=== PATIENT | male | born 1950 | race Caucasian/White ===

== ENCOUNTER 2016-05-22 21:01 | Inpatient (IN) | payer OTHER, MEDICARE ==
[~2016-05-22] VITALS: Ht 177.8 cm; Wt 108.5 kg
[2016-05-22] VITALS (9 sets, daily range): BP systolic 137–241; BP diastolic 63–119; PULSE 70–85; RESP 11–20; TEMP 97.3; O2SAT 95–97
[~2016-05-22 21:01] MED LIST: ALPR0.5T3 PO; ALPR0.5T99 PO; AMLO5TAB96 PO; ASPI325T PO; CEPH500C3 PO; DIOV80TA4 PO; EZET10 PO; FIBEPOW OR; FLUTI220I INH; JANU50TA5 PO; LEVA0.3113 NEB; METO100T OR; METR250 PO; NEXI40CA PO; PRED20 PO; RANI150 PO; ROSU5 PO; SING4GRA PO; STOO100T PO; TAB-TAB PO
[2016-05-22] MEDS ORDERED: SODIUM CHLOR 0.9% 1000 ML INJ 1,000 ML IV SCH (21:28)
[2016-05-22] MEDS ORDERED: SODIUM CHLORIDE 0.9% FLUSH 5 ML FLUSH IVF PRN ×4 (21:30→22:30)
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
[2016-05-22] MEDS ORDERED: ASPI1TAB69 PO (21:39)
[2016-05-22] MEDS ORDERED: NITR1SUB3 SL (21:39)
[2016-05-22] MEDS ORDERED: CYAN1TAB21 SL (21:39)
[2016-05-22] MEDS ORDERED: GABA800T PO (21:39)
[2016-05-22] MEDS ORDERED: ATOR40TA16 PO (21:39)
[2016-05-22] MEDS ORDERED: FERR325T PO (21:39)
[2016-05-22] MEDS ORDERED: K-TA10TA PO (21:39)
[2016-05-22] MEDS ORDERED: MONT10TA2 PO (21:39)
[2016-05-22] MEDS ORDERED: MOTR200T4 PO (21:39)
[2016-05-22] MEDS ORDERED: ALPR0.25 PO (21:39)
[2016-05-22] MEDS ORDERED: COQ-30CA2 PO (21:39)
[2016-05-22] MEDS ORDERED: OMEP40CA2 PO (21:39)
[2016-05-22] MEDS ORDERED: CENTTAB PO (21:39)
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
[2016-05-22] MEDS ORDERED: niCARdipine INJ 25 MG in SODIUM CHLOR 0.9% 250 ML INJ 250 ML IV SCH (22:00)
[2016-05-22] MEDS ORDERED: LABETALOL HCL 100 MG/20 ML VIAL IV PUSH ONE (22:15)
--- NOTE | 2016-05-22 22:22 | RADRPT ---
EXAM DATE/TIME: 05/22/2016 21:28 [facility] COMPARISON: CHEST SINGLE AP, November 13, 2010, 20:30. INDICATIONS : Sycopal episode. MEDICAL HISTORY : None. SURGICAL HISTORY : CABG. ENCOUNTER: Initial ACUITY: 1 day PAIN SCORE: 0/10 LOCATION: chest FINDINGS: A single view of the chest demonstrates the lungs to be symmetrically aerated without evidence of mas s, infiltrate or effusion. Postsurgical changes are seen in the mediastinum and left base. The cardio mediastinal contours are otherwise unremarkable. Osseous structures are intact. CONCLUSION: No acute disease. Status post median sternotomy. Mika Galindo MD on May 22, 2016 at 22:20 Board Certified Radiologist. This report was verified electronically.
[2016-05-22 22:24] LABS: AUTOMATED NEUTROPHIL # 7.9 TH/MM3 (1.8-7.7); BASOPHIL % 0.4 % (0.0-2.0); EOSINOPHIL # 0.1 TH/MM3 (0-0.4); EOSINOPHIL % 0.7 % (0.0-4.0); HEMATOCRIT 44.2 % (39.0-51.0); HEMO FLAGS DIFF FINAL; LYMPH % 11.8 % (9.0-44.0); LYMPHOCYTE # 1.2 TH/MM3 (1.0-4.8); MEAN CELL VOLUME 76.7 FL (80.0-100.0); MEAN CORPUSCULAR HEMOGLOBIN 26.4 PG (27.0-34.0); MEAN CORPUSCULAR HGB CONC 34.4 % (32.0-36.0); MONO % 9.4 % (0.0-8.0); NEUT % 77.7 % (16.0-70.0); PLATELET COUNT 175 TH/MM3 (150-450); RED BLOOD COUNT 5.76 MIL/MM3 (4.50-5.90); WHITE BLOOD COUNT 10.2 TH/MM3 (4.0-11.0)
[2016-05-22] MEDS ORDERED: TETANUS/DIPHTHERIA TOXOID ADULT 0.5 ML VIAL IM ONE (22:30)
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
[2016-05-22 22:38] LABS: APTT (PATIENT) 26.6 SEC (24.3-30.1); PROTHROMBIN TIME - PATIENT 11.4 SEC (9.8-11.6)
[2016-05-22 22:54] LABS: ANION GAP 8 MEQ/L (5-15); AST (GOT) 41 U/L (15-37); BICARBONATE 29.3 MEQ/L (21.0-32.0); BLOOD UREA NITROGEN 9 MG/DL (7-18); CHLORIDE 101 MEQ/L (98-107); GLOMERULAR FILTRATION RATE 57 ML/MIN (>89); MAGNESIUM 2.2 MG/DL (1.5-2.5); POTASSIUM 3.7 MEQ/L (3.5-5.1); SODIUM (NA) 138 MEQ/L (136-145)
[2016-05-22 23:09] LABS: ALKALINE PHOSPHATASE 76 U/L (45-117); ALT (GPT) 41 U/L (12-78); CREATINE KINASE 1196 U/L (39-308)
[2016-05-22 23:24] LABS: CKMB 4.9 NG/ML (0.5-3.6)
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
[2016-05-22] MEDS ORDERED: IOHEXOL 350 MG/ML 10 ML VIAL (for RAD DIAG) IV ONE (23:40)
[2016-05-23] VITALS (19 sets, daily range): BP systolic 112–173; BP diastolic 54–95; PULSE 20–96; RESP 14–24; TEMP 98.3–99; O2SAT 95–98
--- NOTE | 2016-05-23 00:17 | RADRPT ---
EXAM DATE/TIME: 05/22/2016 23:24 [facility] COMPARISON: No previous studies available for comparison. INDICATIONS : Occipital hemorrhage; evaluate of arteriovenous malformation IV CONTRAST: 70 cc Omnipaque 350 (iohexol) IV RADIATION DOSE: 17.30 CTDIvol (mGy) MEDICAL HISTORY : Cerebrovascular disease. Cardiovascular disease Chronic obstructive pulmonary disease.Hypertension. SURGICAL HISTORY : CABG ENCOUNTER: Initial ACUITY: 1 day PAIN SCALE: 9/10 LOCATION: Bilateral cranial TECHNIQUE: Volumetric scanning was performed using a multi-row detector CT scanner. The data was post processed with a variety of visualization algorithms including full volume maximum intensity projection, multi -planar sliding thin slab reformation, curved planar reformation, and surface rendering techniques. Using automated exposure control and adjustment of the mA and/or kV according to patient size, radiat ion dose was kept as low as reasonably achievable to obtain optimal diagnostic quality images. FINDINGS: There is excellent visualization of the major intracranial arteries out to the second-order branch ve ssels. There is no evidence for aneurysm, vessel truncation or stenosis, and no evidence for vascula r malformation. There is mild stenosis of the proximal internal carotid arteries bilaterally seen on the source images. CONCLUSION: 1. Unremarkable CTA brain. No evidence for arteriovenous malformation. Again seen is right occipital lobe hemorrhage and small left frontal lobe hemorrhage. See recent head CT report. Jose Porter MD on May 23, 2016 at 0:08 Board Certified Radiologist. This report was verified electronically.
[2016-05-23] MEDS ORDERED: POTASSIUM CHLOR 20 MEQ PREMIX 100 ML IV PRN ×2 (00:30)
[2016-05-23] MEDS ORDERED: POTASSIUM CL 40 MEQ/30 ML LIQ UDC PO/TUBE PRN ×2 (00:30)
[2016-05-23] MEDS ORDERED: MAGNESIUM SULFATE INJ 4 GM in SODIUM CHLORIDE 0.9% INJ 92 ML IV PRN (00:30)
[2016-05-23] MEDS ORDERED: POTASSIUM CHLOR 40 MEQ PREMIX 100 ML IV PRN ×2 (00:30)
[2016-05-23] MEDS ORDERED: MAGNESIUM SULFATE INJ 2 GM in SODIUM CHLORIDE 0.9% INJ 96 ML IV PRN (00:30)
[2016-05-23] MEDS ORDERED: MAGNESIUM OXIDE 400 MG TAB PO PRN (00:30)
[2016-05-23] MEDS ORDERED: POTASSIUM PHOSPHATE MONOBASIC 500 MG TAB PO PRN (00:30)
[2016-05-23] MEDS ORDERED: SODIUM PHOSPHATE INJ 30 MMOL in SODIUM CHLOR 0.9% 250 ML INJ 240 ML IV PRN (00:30)
[2016-05-23] MEDS ORDERED: POTASSIUM PHOSPHATE MONOBASIC 500 MG TAB PO/TUBE PRN (00:30)
[2016-05-23] MEDS ORDERED: POTASSIUM PHOSPHATE INJ 30 MMOL in SODIUM CHLOR 0.9% 250 ML INJ 250 ML IV PRN (00:30)
[2016-05-23] MEDS ORDERED: RESP: ALBUTEROL 2.5 MG/3 ML NEB (PRN) INH (00:45)
[2016-05-23] MEDS ORDERED: CHLORHEXIDINE GLUCONATE 2 % 1 PACK (2 CLOTHS) TOP PRN (00:45)
[2016-05-23] MEDS ORDERED: BISACODYL EC 5 MG TABEC PO PRN (00:45)
[2016-05-23] MEDS ORDERED: MISCELLANEOUS NURSING INFORMATION XX SCH (00:45)
[2016-05-23] MEDS ORDERED: SODIUM CHLORIDE 0.9% FLUSH 5 ML FLUSH IV FLUSH PRN (00:45)
[2016-05-23] MEDS ORDERED: ACETAMINOPHEN 1000 MG/100 ML VIAL IV PRN (01:15)
--- NOTE | 2016-05-23 01:15 | RADRPT ---
EXAM DATE/TIME: 05/23/2016 00:22 [facility] COMPARISON: No previous studies available for comparison. INDICATIONS : Right wrist pain. MEDICAL HISTORY : Cerebrovascular disease. Cardiovascular disease. Chronic obstructive pulmonary disease. Hypertens ion SURGICAL HISTORY : CABG. ENCOUNTER: Initial ACUITY: 1 day PAIN SCORE: 10/10 LOCATION: Right wrist FINDINGS: Three view examination of the right wrist demonstrates no soft tissue swelling, dislocation, or fract ure. The carpal bones are in normal alignment. The joint spaces are maintained. Bony mineralizatio n is normal. CONCLUSION: 1. No acute findings. Jose Porter MD on May 23, 2016 at 1:12 Board Certified Radiologist. This report was verified electronically.
[2016-05-23] MEDS: niCARdipine INJ 25 MG in SODIUM CHLOR 0.9% 250 ML INJ 250 ML IV SCH ×4 (01:22→21:30)
[2016-05-23] MEDS ORDERED: DEXTROSE 50% IN WATER 50 ML VIAL(D50) IV PUSH PRN (01:30)
[2016-05-23] MEDS ORDERED: GLUCAGON 1 MG/ML VIAL OTHER PRN (01:30)
--- NOTE | 2016-05-23 01:52 | RADRPT ---
EXAM DATE/TIME: 05/23/2016 01:12 [facility] COMPARISON: No previous studies available for comparison. INDICATIONS : Left hand pain. MEDICAL HISTORY : None. SURGICAL HISTORY : None. ENCOUNTER: Initial ACUITY: 1 day PAIN SCORE: 10/10 LOCATION: Left hand FINDINGS: Three view examination of the left hand demonstrates no soft tissue swelling, dislocation, or fractur e. The carpal bones appear intact. The interphalangeal and metacarpophalangeal joints are intact. Bony mineralization is normal. CONCLUSION: 1. No acute findings. Mild osteoarthritis. Surgical clips present around the distal left radius. Jose Porter MD on May 23, 2016 at 1:48 Board Certified Radiologist. This report was verified electronically.
[2016-05-23] MEDS: RESP: ALBUTEROL 2.5 MG/IPRATROPIUM 0.5 MG NEB (SCH) INH ×4 (03:34→19:34)
[2016-05-23] MEDS: CHLORHEXIDINE GLUCONATE 2 % 1 PACK (2 CLOTHS) TOP SCH (04:00)
[2016-05-23] MEDS: ONDANSETRON HCL 4 MG/2 ML VIAL IV PRN ×3 (04:02→20:47)
[2016-05-23] MEDS ORDERED: SODIUM CHLOR 0.9% 250 ML INJ 250 ML ONE (06:03)
[2016-05-23] MEDS: INSULIN ASPART SUPPLEMENTAL SCALE SQ SCH ×4 (07:00→21:00)
[2016-05-23] MEDS ORDERED: SODIUM CHLORIDE 0.9% FLUSH 5 ML FLUSH IVF SCH ×3 (09:00)
[2016-05-23] MEDS: SODIUM CHLORIDE 0.9% FLUSH 5 ML FLUSH IV FLUSH SCH ×2 (09:30→21:00)
[2016-05-23] MEDS: PANTOPRAZOLE SODIUM 40 MG VIAL IV SCH (09:31)
[2016-05-23] MEDS ORDERED: MORPHINE SULFATE 4 MG/ML INJ IV PUSH PRN ×2 (10:15→11:00)
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
[2016-05-23] MEDS ORDERED: GADODIAMIDE PF 287 MG/ML 5 ML VIAL (for RAD MRI) IV ONE (16:04)
--- NOTE | 2016-05-23 16:52 | RADRPT ---
EXAM DATE/TIME: 05/23/2016 15:47 [facility] COMPARISON: CT BRAIN W/O CONTRAST, May 22, 2016, 21:44. INDICATIONS : Hematoma. Altered mental status. CONTRAST: 22 cc Omniscan (gadodiamide) IV MEDICAL HISTORY : Hypertension. Myocardial infarction. Chronic obstructive pulmonary disease. Diabetes. SURGICAL HISTORY : Gastric bypass. CABG Cardiac cath with stent placement. Knee. Left shoulder. ENCOUNTER: Subsequent ACUITY: 2 day PAIN SCORE: 3/10 LOCATION: cranial TECHNIQUE: Multiplanar, multisequence MRI of the brain was performed both prior to and following the administrat ion of paramagnetic contrast. FINDINGS: The craniocervical junction and midline structures are unremarkable. There is acute 5.6 x 2.5 cm cheryl preeti in the right occipital lobe which is sparing the cortex. There is mass effect on the atrium righ t lateral ventricle but no signs of herniation. Following initiation of contrast no normal heads is i dentified. Susceptibility weighted imaging demonstrate multiple small areas of signal restriction mos t characteristic of amyloid angiopathy. Small amount of blood is seen layering in the body of the lef t lateral ventricle. Posterior fossa structures are unremarkable. CONCLUSION: 1. Right occipital lobe hematoma described above without evidence of underlying mass. The findings on a background of chronic hemorrhage and likely related to amyloid angiopathy. Manny Kim MD on May 23, 2016 at 16:47 Board Certified Radiologist. This report was verified electronically.
--- NOTE | 2016-05-23 19:02 | EC ---
Study Study Date:05/23/2016 STUDY CONCLUSIONS SUMMARY - Left ventricle: The cavity size was normal. Wall thickness was normal. Systolic function was normal. The estimated ejection fraction was in the range of 50% to 55%. Wall motion was normal; there were no regional wall motion abnormalities. - Aortic valve: Valve area: 0.71cm^2(VTI). Valve area: 0.77cm^2 (Vmax). - Mitral valve: Valve area by pressure half-time: 2.47cm^2. If LV function is below 40, please consider prescribing an ACEI or ARB or document rationale for non-use. PROCEDURE DATA STUDY STATUS: Elective. Procedure: Transthoracic echocardiography. Image quality was poor. Scanning was performed from the parasternal, apical, and subcostal acoustic windows. Study completion: The patient tolerated the procedure well. Transthoracic echocardiography. M-mode, complete 2D, complete spectral Doppler, and color Doppler. Patient status: Inpatient. CARDIAC ANATOMY LEFT VENTRICLE: The cavity size was normal. Wall thickness was normal. Systolic function was normal. The estimated ejection fraction was in the range of 50% to 55%. Wall motion was normal; there were no regional wall motion abnormalities. AORTIC VALVE: Trileaflet; normal thickness leaflets. Doppler: Transvalvular velocity was within the normal range. There was no stenosis. No regurgitation. Valve area: 0.71cm^2(VTI). Valve area: 0.77cm^2 (Vmax). Mean gradient: 8mm Hg (S). Peak gradient: 15mm Hg (S). AORTA: Aortic root: The aortic root was normal in size. MITRAL VALVE: Structurally normal valve. Doppler: Transvalvular velocity was within the normal range. There was no evidence for stenosis. No regurgitation. Valve area by pressure half-time: 2.47cm^2. LEFT ATRIUM: The atrium was normal in size. RIGHT VENTRICLE: The cavity size was normal. Wall thickness was normal. PULMONIC VALVE: Doppler: Transvalvular velocity was within the normal range. There was no evidence for stenosis. No regurgitation. TRICUSPID VALVE: Structurally normal valve. Doppler: Transvalvular velocity was within the normal range. No regurgitation. PULMONARY ARTERY: The main pulmonary artery was normal-sized. Systolic pressure was within the normal range. RIGHT ATRIUM: The atrium was normal in size. PERICARDIUM: There was no pericardial effusion. SYSTEMIC VEINS: Inferior vena cava: The vessel was normal in size. BASIC MEASUREMENTS ADULT Normal Left ventricle LV internal dimension, ED, chordal level, 45.8 mm 43-52 PLAX LV internal dimension, ES, chordal level, 35.8 mm 23-38 PLAX Fractional shortening, chordal level, PLAX *22 % >29 LV posterior wall thickness, ED 11.6 mm IVS/LVPW ratio, ED *1.35 <1.3 Ventricular septum Septal thickness, ED 15.7 mm Aortic valve Leaflet separation 16 mm 15-26 Right ventricle RV internal dimension, ED, PLAX 24.9 mm 19-38 BASIC MEASUREMENTS ADULT Normal Aortic valve Leaflet separation 16 mm 15-26 Aorta Root diameter, ED *38 mm 20-37 Left atrium Anterior-posterior dimension, ES 36 mm 19-40 LA/aortic root ratio 0.95 DOPPLER MEASUREMENTS ADULT Normal Main pulmonary artery Pressure, S 28 mm Hg =30 Aortic valve Peak velocity, S 193 cm/s Mean velocity, S 132 cm/s VTI, S 43.2 cm Mean gradient, S 8 mm Hg Peak gradient, S 15 mm Hg Valve area, VTI 0.71 cm^2 Valve area, Vmax 0.77 cm^2 Mitral valve Pressure half-time 89 ms Valve area, pressure half-time 2.47 cm^2 Tricuspid valve Regurgitant peak velocity 212 cm/s Peak RV-RA gradient, S 18 mm Hg Maximal regurgitant velocity 212 cm/s Systemic veins Estimated CVP 10 mm Hg Right ventricle RV pressure, S 28 mm Hg <30 LEGEND: Mean values are shown as u=mean value. Asterisk (*) high values outside specified normal range. Prepared and signed by Patricio Colindres [id number]
[2016-05-23] MEDS: MANNITOL 12.5 GM/50 ML VIAL IV SCH (20:00)
--- NOTE | 2016-05-23 23:48 | EKG ---
Date Performed: 05/22/2016 Time Performed: 22:12:10 PTAGE: 66 years EKG: Sinus rhythm NORMAL ECG PREVIOUS TRACING : 11/16/2010 14.02 Compared to prior tracing no significant change DOCTOR: Hank Trejo Interpretating Date/Time 05/23/2016 23:46:43
[2016-05-24] VITALS (12 sets, daily range): BP systolic 132–152; BP diastolic 58–83; PULSE 60–92; RESP 12–20; TEMP 98.4–99.2; O2SAT 94–98
[2016-05-24] MEDS: MANNITOL 12.5 GM/50 ML VIAL IV SCH ×3 (02:00→17:10)
[2016-05-24] MEDS: CHLORHEXIDINE GLUCONATE 2 % 1 PACK (2 CLOTHS) TOP SCH (04:00)
[2016-05-24] MEDS: niCARdipine INJ 25 MG in SODIUM CHLOR 0.9% 250 ML INJ 250 ML IV SCH ×2 (05:10→20:39)
[2016-05-24] MEDS: RESP: ALBUTEROL 2.5 MG/IPRATROPIUM 0.5 MG NEB (SCH) INH ×4 (05:11→19:59)
[2016-05-24] MEDS ORDERED: VANCOMYCIN INJ 1,000 MG in SODIUM CHLOR 0.9% 250 ML INJ 250 ML IV SCH (06:00)
[2016-05-24 06:02] LABS: AUTOMATED NEUTROPHIL # 9.6 TH/MM3 (1.8-7.7); BASOPHIL % 0.3 % (0.0-2.0); EOSINOPHIL % 0.4 % (0.0-4.0); HEMO FLAGS DIFF FINAL; LYMPH % 15.2 % (9.0-44.0); LYMPHOCYTE # 1.9 TH/MM3 (1.0-4.8); MEAN CELL VOLUME 77.1 FL (80.0-100.0); MEAN CORPUSCULAR HEMOGLOBIN 26.3 PG (27.0-34.0); MEAN CORPUSCULAR HGB CONC 34.1 % (32.0-36.0); MONO % 7.2 % (0.0-8.0); NEUT % 76.9 % (16.0-70.0); PLATELET COUNT 170 TH/MM3 (150-450); RED BLOOD COUNT 5.84 MIL/MM3 (4.50-5.90); RED CELL DISTRIBUTION WIDTH 15.3 % (11.6-17.2); WHITE BLOOD COUNT 12.4 TH/MM3 (4.0-11.0)
[2016-05-24 06:31] LABS: ALKALINE PHOSPHATASE 76 U/L (45-117)
[2016-05-24 06:38] LABS: ALT (GPT) 37 U/L (12-78); ANION GAP 9 MEQ/L (5-15); AST (GOT) 49 U/L (15-37); BICARBONATE 25.6 MEQ/L (21.0-32.0); BLOOD UREA NITROGEN 9 MG/DL (7-18); CHLORIDE 99 MEQ/L (98-107); GLOMERULAR FILTRATION RATE 72 ML/MIN (>89); MAGNESIUM 2.2 MG/DL (1.5-2.5); SODIUM (NA) 134 MEQ/L (136-145)
[2016-05-24 06:57] LABS: POTASSIUM 4.1 MEQ/L (3.5-5.1)
[2016-05-24] MEDS: INSULIN ASPART SUPPLEMENTAL SCALE SQ SCH ×4 (07:00→21:00)
[2016-05-24] MEDS: PANTOPRAZOLE SODIUM 40 MG VIAL IV SCH (08:01)
[2016-05-24] MEDS: SODIUM CHLORIDE 0.9% FLUSH 5 ML FLUSH IV FLUSH SCH (08:01)
[2016-05-24] MEDS ORDERED: THROMBIN (TOPICAL) 5,000 UNIT VIAL ONE (08:06)
[2016-05-24] MEDS ORDERED: LIDOCAINE 1%/EPINEPHrine 1:100,000 SOLN 30 ML VIAL ONE (08:06)
[2016-05-24] MEDS ORDERED: ceFAZolin 2 GM PREMIX 50 ML ONE (08:06)
[2016-05-24] MEDS ORDERED: GELFOAM SIZE 100 ONE (08:07)
[2016-05-24] MEDS ORDERED: DEXAMETHASONE SOD PHOS 20 MG/5 ML VIAL ONE (08:07)
[2016-05-24] MEDS ORDERED: GENTAMICIN SULFATE 80 MG/2 ML VIAL ONE (08:07)
[2016-05-24] MEDS ORDERED: levETIRAcetam 500 MG/5 ML VIAL IV ONE ×2 (08:08→12:00)
[2016-05-24] MEDS ORDERED: VANCOMYCIN HCL 1000 MG VIAL ONE (08:09)
[2016-05-24] MEDS ORDERED: SODIUM CHLOR 0.9% 250 ML INJ 250 ML ONE (08:10)
--- NOTE | 2016-05-24 08:29 | RADRPT ---
EXAM DATE/TIME: 05/24/2016 06:16 [facility] COMPARISON: CT BRAIN W/O CONTRAST, May 22, 2016, 21:44. INDICATIONS: Evaluate hemorrhage. RADIATION DOSE: 48.42 CTDIvol (mGy) MEDICAL HISTORY: Carotid stenosis. Cardiovascular disease Hypertension. SURGICAL HISTORY: None. ENCOUNTER: Sequela ACUITY: 3 days PAIN SCALE: Non-responsive LOCATION: Cranial TECHNIQUE: Multiple contiguous axial images were obtained of the head. Using automated exposure control and adj ustment of the mA and/or kV according to patient size, radiation dose was kept as low as reasonably a chievable to obtain optimal diagnostic quality images. FINDINGS: The large intraaxial bleed within the right occipital lobe is again noted and stable and appearance. It measures 5.7 x 2.5 cm. There is acute intraventricular hemorrhage filling the atrium of the righ t lateral ventricle and to a much lesser degree within the atrium of the lateral ventricle. The smal l focal subcortical hemorrhage within the left parietal lobe is stable also. This measures 0.9 cm in greatest dimension. There is a subtle area of hyperdenisty within the left posterior parietal regio n as well as within the right mid parietal and right temporal regions consistent with probable acute cortical contusions in these locations which were not as well visualized on the previous examination. Moderate to severe periventricular and subcortical white matter small vessel ischemic changes are n oted bilaterally. There are scattered old lacunar infarcts within the left basal ganglia. No midlin e shift is noted. Acute subarachnoid hemorrhage is also likely within the region of the cerebellum b ilaterally. CONCLUSION: 1. Stable large acute parenchymal hemorrhage within the right occipital lobe measuring 5.7 x 2.5 cm with extensive of acute hemorrhage into the atria of the lateral ventricle (right more extensive than left). There is also a stable acute subcortical parenchymal hemorrhage within the left parietal lob e measuring 0.9 cm and new subtle areas of cortical hemorrhage within the left posterior parietal, ri ght mid parietal and right temporal regions. Acute subarachnoid hemorrhage is also likely within the region of the cerebellum bilaterally. 2. No midline shift. 3. Severe periventricular and subcortical white matter small vessel ischemic changes bilaterally. 4. Old lacunar infarcts within the left basal ganglia. Anthony Pearl MD on May 24, 2016 at 7:16 Board Certified Radiologist. This report was verified electronically.
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
[2016-05-24] MEDS ORDERED: PROPOFOL 200 MG/20 ML AMP IV ONE (12:00)
[2016-05-24] MEDS ORDERED: LACTATED RINGER'S 1000 ML INJ 2,000 ML IV ONE (12:00)
[2016-05-24] MEDS ORDERED: PHENYLEPH/NS 1000 MCG/10 ML SYR IV ONE (12:00)
[2016-05-24] MEDS ORDERED: ONDANSETRON HCL 4 MG/2 ML VIAL IV PUSH ONE (12:00)
[2016-05-24] MEDS: NS + KCL 20 MEQ INJ 1,000 ML IV SCH ×2 (12:42→22:42)
[2016-05-24] MEDS ORDERED: POTASSIUM CHLOR 20 MEQ PREMIX 100 ML IV PRN (12:45)
[2016-05-24] MEDS ORDERED: ONDANSETRON HCL 4 MG/2 ML VIAL IV PRN (12:45)
[2016-05-24] MEDS ORDERED: ceFAZolin 2 GM PREMIX 50 ML IV SCH (12:45)
[2016-05-24] MEDS ORDERED: CALCIUM GLUCONATE 10% 1 GM/10 ML VIAL IV PRN (12:45)
[2016-05-24] MEDS ORDERED: SODIUM CHLORIDE 0.9% FLUSH 5 ML FLUSH IVF PRN (12:45)
[2016-05-24] MEDS ORDERED: ACETAMINOPHEN 325 MG TAB PO PRN (12:45)
[2016-05-24] MEDS ORDERED: DO NOT ADM ANY ANTICOAGULANT DRUGS XX PRN (12:45)
[2016-05-24] MEDS ORDERED: MAGNESIUM SULFATE INJ 4 GM in SODIUM CHLORIDE 0.9% INJ 100 ML IV PRN (12:45)
[2016-05-24] MEDS ORDERED: BISACODYL 10 MG SUPP PR PRN (12:45)
--- NOTE | 2016-05-24 12:53 | PD.OP ---
Operative Report Date of Surgery: May 24, 2016 Preoperative Diagnosis: Right occipital hemorrhage Postoperative Diagnosis: Right occipital hemorrhage Procedure: Right occipital craniotomy with evacuation of intracerebral hemorrhage. Microsurgical dissection Anesthesia: general Surgeon: Maxx Trejo Cna Caregiver(s): William Corrigan Operation and Findings: INDICATIONS FOR THE PROCEDURE Mr Gtz is a 66 year old male who was brought to [facility] with a right occipital hemorrhage. CT of the brain showed a large acute right occipital hemorrhage measuring 5.7 cm in its largest dimension. A surgical decompression was indicated as recommended by the [employer] [employer] as his condition was deteriorating. We have discussed the details including the [id number] details of the surgical procedure, its indications, alternatives, risks, and potential complications were discussed with him and his . He understood. All questions were answered. No guarantees were given. The bodies requesting the procedure and signed informed consents. They were offered the alternative of delaying the procedure and continuing nonoperative treatment DETAILS OF THE SURGICAL PROCEDURE Afterthe induction of general anesthesia the patient was endotracheally intubated and mechanically ventilated. A Lopez catheter, bilateral BARBARA hose and sequential compression devices were placed and kept throughout the procedure. The patient was positioned supine on a 3080 table over a soft mattress. The head was placed on a gel doughnut. All pressure points were carefully padded with egg crate mattress. The eyes were tapped shut after ointment was applied by the anesthesiologist to prevent corneal abrasion. A Britney hugger was placed over the exposed lower body to maintain control of the core body temperature. The frontotemporal parietal area was shaved, prepped and draped in the usual sterile fashion. A standard horseshoe incision was outlined on the scalp and infiltrated with 1% lidocaine with epinephrine. The skin incision was made on the right occipital region with a #10 blade down to the level of the periosteum. Lee clips were applied to the scalp. Using a Bovie, a subperiosteal dissection was performed reflecting the scalp flap inferiorly. The scalp was covered with a moist sponge and held in position using fish hooks. The TPS drill was brought to the field and a bur hole was made in the temporal region using the craniotome attachment. Then, using the footplate attachment, a craniotomy flap was elevated. The dura was bulging, very tense with severe pressure due to the underlying mass effect. The dura was opened with a 15 blade and metzembaun sissors and retracted with 4-0 Neurolon sutures attached to the fascia. A large intracerebral hematoma was localized. A small corticotomy was performed. At this point the procedure the operative microscope was brought to the field draped in a steady fashion. The rest of the surgical procedure was performed using microdissection technique with exception of the closure. Using the bipolar and microscissors and the hematoma was readily found, causing significant mass effect. The hematoma was evacuated using microsurgical dissection, with the micro-bipolar forceps, microscissors, micro-suction, and gentle irrigation. The specimen was sent to the lab for histological analysis. Appropriate hemostasis was then secured using the bipolar school transportation director. Then the incision was irrigated with saline solution. The dural edges were tacked to the bone. The craniotomy flap was then repositioned and secured in place using Striker plates and screws. A 7 millimeter Juan Pablo-Peralta drain was then left in the hematoma cavityh and subgaleal space and externalized through a separate stab incision. The incision was then closed in layers. 0 Vicryl in interrupted sutures were used to close the temporalis fascia. The galea was closed with interrupted 3-0 Vicryl. [place] were applied to the skin. The drain was secured with a 3-0 nylon. At the end of the procedure, the sponge, needle and instrument counts were all correct. Estimated blood loss was less than 60 cc or less. No blood transfusion was given. No intraoperative complications occurred. The patient received prophylactic antibiotics. The patient was then transferred to the recovery room in stable condition. COMPLICATIONS None ESTIMATED BLOOD LOSS Less than 60 cc. Maxx Trejo MD May 24, 2016 12:53
[2016-05-24] MEDS: levETIRAcetam INJ 500 MG in SODIUM CHLORIDE 0.9% INJ 100 ML IV SCH (13:00)
--- NOTE | 2016-05-24 13:14 | RADRPT ---
EXAM DATE/TIME: 05/24/2016 12:36 [facility] COMPARISON: CHEST SINGLE AP, May 22, 2016, 21:28. INDICATIONS : Central line placement. MEDICAL HISTORY : None. SURGICAL HISTORY : CABG. ENCOUNTER: Initial ACUITY: 1 day PAIN SCORE: Non-responsive. LOCATION: Bilateral chest FINDINGS: A single view of the chest demonstrates the lungs to be symmetrically aerated without evidence of mas s, infiltrate or effusion. Central line is in good position without pneumothorax. The cardiomediast inal contours are unremarkable. Osseous structures are intact. CONCLUSION: Central line in good position without pneumothorax. Kurtis Kirby MD FACR on May 24, 2016 at 13:12 Board Certified Radiologist. This report was verified electronically.
[2016-05-24] MEDS ORDERED: fentaNYL CITRATE 250 MCG/5 ML AMP ONE (13:27)
[2016-05-24] MEDS ORDERED: MIDAZOLAM HCL 2 MG/2 ML VIAL ONE (13:28)
[2016-05-24] MEDS: VANCOMYCIN INJ 1,000 MG in SODIUM CHLOR 0.9% 250 ML INJ 250 ML IV SCH (20:38)
[2016-05-24] MEDS: SODIUM CHLORIDE 0.9% FLUSH 5 ML FLUSH IVF SCH (20:38)
[2016-05-24] MEDS: DOCUSATE SODIUM 100 MG CAP PO SCH (21:00)
[2016-05-24] MEDS: MORPHINE SULFATE 4 MG/ML INJ IV PUSH PRN (21:11)
[2016-05-25] VITALS (14 sets, daily range): BP systolic 142–152; BP diastolic 56–64; PULSE 60–86; RESP 14–23; TEMP 98.2–99.8; O2SAT 93–98
[2016-05-25] MEDS: levETIRAcetam INJ 500 MG in SODIUM CHLORIDE 0.9% INJ 100 ML IV SCH ×2 (00:10→11:38)
[2016-05-25] MEDS: MANNITOL 12.5 GM/50 ML VIAL IV SCH ×4 (01:24→18:45)
[2016-05-25] MEDS: niCARdipine INJ 25 MG in SODIUM CHLOR 0.9% 250 ML INJ 250 ML IV SCH (02:37)
[2016-05-25] MEDS: MORPHINE SULFATE 4 MG/ML INJ IV PUSH PRN (02:37)
[2016-05-25] MEDS: RESP: ALBUTEROL 2.5 MG/IPRATROPIUM 0.5 MG NEB (SCH) INH ×4 (03:38→19:52)
[2016-05-25] MEDS: CHLORHEXIDINE GLUCONATE 2 % 1 PACK (2 CLOTHS) TOP SCH (04:00)
[2016-05-25 06:10] LABS: AUTOMATED NEUTROPHIL # 12.2 TH/MM3 (1.8-7.7); BASOPHIL % 0.2 % (0.0-2.0); EOSINOPHIL % 0.1 % (0.0-4.0); HEMATOCRIT 38.4 % (39.0-51.0); HEMO FLAGS DIFF FINAL; LYMPH % 5.5 % (9.0-44.0); LYMPHOCYTE # 0.8 TH/MM3 (1.0-4.8); MEAN CELL VOLUME 76.7 FL (80.0-100.0); MEAN CORPUSCULAR HEMOGLOBIN 25.9 PG (27.0-34.0); MEAN CORPUSCULAR HGB CONC 33.8 % (32.0-36.0); NEUT % 84.2 % (16.0-70.0); PLATELET COUNT 165 TH/MM3 (150-450); RED CELL DISTRIBUTION WIDTH 15.3 % (11.6-17.2); WHITE BLOOD COUNT 14.5 TH/MM3 (4.0-11.0)
[2016-05-25 06:15] LABS: BICARBONATE 26.1 MEQ/L (21.0-32.0); POTASSIUM 4.1 MEQ/L (3.5-5.1)
[2016-05-25] MEDS: INSULIN ASPART SUPPLEMENTAL SCALE SQ SCH ×4 (06:39→20:40)
[2016-05-25] MEDS: PANTOPRAZOLE SODIUM 40 MG VIAL IVP SCH (09:00)
[2016-05-25] MEDS: NS + KCL 20 MEQ INJ 1,000 ML IV SCH ×2 (09:06→18:45)
[2016-05-25] MEDS: VANCOMYCIN INJ 1,000 MG in SODIUM CHLOR 0.9% 250 ML INJ 250 ML IV SCH (09:07)
[2016-05-25] MEDS: PANTOPRAZOLE SOD 40 MG DELAYED RELEASE TAB PO SCH (09:07)
[2016-05-25] MEDS: SODIUM CHLORIDE 0.9% FLUSH 5 ML FLUSH IVF SCH ×2 (09:07→20:32)
[2016-05-25] MEDS: DOCUSATE SODIUM 100 MG CAP PO SCH ×2 (09:07→20:31)
[2016-05-25] MEDS: ACETAMINOPHEN/HYDROcodone 325 MG/10 MG TAB PO PRN ×3 (09:07→20:31)
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
[2016-05-25] MEDS: hydrALAZINE HCL 20 MG/ML VIAL IVP PRN ×2 (15:18→18:45)
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
[2016-05-26] VITALS (14 sets, daily range): BP systolic 132–161; BP diastolic 47–76; PULSE 70–109; RESP 14–18; TEMP 98.1–99.3; O2SAT 95–97
[2016-05-26] MEDS: MANNITOL 12.5 GM/50 ML VIAL IV SCH ×5 (00:21→23:16)
[2016-05-26] MEDS: levETIRAcetam INJ 500 MG in SODIUM CHLORIDE 0.9% INJ 100 ML IV SCH ×2 (00:21→12:01)
[2016-05-26] MEDS: NS + KCL 20 MEQ INJ 1,000 ML IV SCH ×3 (03:30→23:16)
[2016-05-26] MEDS: MORPHINE SULFATE 4 MG/ML INJ IV PUSH PRN ×2 (03:30)
[2016-05-26] MEDS: hydrALAZINE HCL 20 MG/ML VIAL IVP PRN ×2 (03:30→18:55)
[2016-05-26] MEDS: RESP: ALBUTEROL 2.5 MG/IPRATROPIUM 0.5 MG NEB (SCH) INH ×4 (03:54→20:46)
[2016-05-26] MEDS: CHLORHEXIDINE GLUCONATE 2 % 1 PACK (2 CLOTHS) TOP SCH (04:00)
[2016-05-26] MEDS: ACETAMINOPHEN/HYDROcodone 325 MG/10 MG TAB PO PRN ×3 (04:51→19:54)
[2016-05-26 05:25] LABS: AUTOMATED NEUTROPHIL # 9.1 TH/MM3 (1.8-7.7); BASOPHIL # 0.1 TH/MM3 (0-0.2); BASOPHIL % 0.5 % (0.0-2.0); EOSINOPHIL # 0.1 TH/MM3 (0-0.4); EOSINOPHIL % 0.8 % (0.0-4.0); HEMATOCRIT 39.1 % (39.0-51.0); HEMO FLAGS DIFF FINAL; LYMPH % 11.7 % (9.0-44.0); LYMPHOCYTE # 1.4 TH/MM3 (1.0-4.8); MEAN CELL VOLUME 77.9 FL (80.0-100.0); MEAN CORPUSCULAR HEMOGLOBIN 26.5 PG (27.0-34.0); MONO % 10.2 % (0.0-8.0); NEUT % 76.8 % (16.0-70.0); PLATELET COUNT 178 TH/MM3 (150-450); RED BLOOD COUNT 5.02 MIL/MM3 (4.50-5.90); RED CELL DISTRIBUTION WIDTH 15.2 % (11.6-17.2); WHITE BLOOD COUNT 11.8 TH/MM3 (4.0-11.0)
--- NOTE | 2016-05-26 05:40 | RADRPT ---
EXAM DATE/TIME: 05/26/2016 04:21 [place] COMPARISON: CT BRAIN W/O CONTRAST, May 24, 2016, 6:16. INDICATIONS : Post-op craniotomy. RADIATION DOSE: 46.25 CTDIvol (mGy) MEDICAL HISTORY : Myocardial infarction. Hypertension. Chronic obstructive pulmonary disease.Coronary artery disease. SURGICAL HISTORY : CABG Cardiac stents. ENCOUNTER: Subsequent ACUITY: 2 days PAIN SCALE: Non-responsive LOCATION: cranial TECHNIQUE: Multiple contiguous axial images were obtained of the head. Using automated exposure control and adj ustment of the mA and/or kV according to patient size, radiation dose was kept as low as reasonably a chievable to obtain optimal diagnostic quality images. FINDINGS: There has been interval right parietal craniotomy and placement of a surgical drain with evacuation o f hematoma. A small remaining hemorrhagic focus with adjacent edema is present. There is minimal intr aventricular blood in the dependent occipital horns. There is no significant brain shift. Small areas of minimal hemorrhage in the contralateral left hemisphere grossly stable. No new acute findings are present. CONCLUSION: Interval right parietal-occipital hematoma evacuation with drain placement. No new acute findings Bridger Ma MD on May 26, 2016 at 5:36 Board Certified Radiologist. This report was verified electronically.
[2016-05-26 06:14] LABS: ALKALINE PHOSPHATASE 68 U/L (45-117); ALT (GPT) 28 U/L (12-78); ANION GAP 11 MEQ/L (5-15); AST (GOT) 17 U/L (15-37); BICARBONATE 24.2 MEQ/L (21.0-32.0); BLOOD UREA NITROGEN 12 MG/DL (7-18); CHLORIDE 104 MEQ/L (98-107); GLOMERULAR FILTRATION RATE 77 ML/MIN (>89); POTASSIUM 3.9 MEQ/L (3.5-5.1); SODIUM (NA) 139 MEQ/L (136-145); TOTAL BILIRUBIN ADULT 0.7 MG/DL (0.2-1.0)
[2016-05-26] MEDS: INSULIN ASPART SUPPLEMENTAL SCALE SQ SCH ×4 (06:41→20:04)
[2016-05-26] MEDS: PANTOPRAZOLE SODIUM 40 MG VIAL IVP SCH (08:18)
[2016-05-26] MEDS: SODIUM CHLORIDE 0.9% FLUSH 5 ML FLUSH IVF SCH ×2 (08:18→20:04)
[2016-05-26] MEDS: DOCUSATE SODIUM 100 MG CAP PO SCH ×2 (08:19→20:04)
[2016-05-26] MEDS: PANTOPRAZOLE SOD 40 MG DELAYED RELEASE TAB PO SCH (08:19)
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
[2016-05-26] MEDS: LISINOPRIL 5 MG TAB PO SCH (12:00)
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
[2016-05-27] VITALS (14 sets, daily range): BP systolic 135–171; BP diastolic 63–76; PULSE 78–109; RESP 10–19; TEMP 98.3–100; O2SAT 95–98
[2016-05-27] MEDS: levETIRAcetam INJ 500 MG in SODIUM CHLORIDE 0.9% INJ 100 ML IV SCH ×2 (00:01→13:00)
[2016-05-27] MEDS: ACETAMINOPHEN/HYDROcodone 325 MG/10 MG TAB PO PRN ×3 (01:51→22:29)
[2016-05-27] MEDS: hydrALAZINE HCL 20 MG/ML VIAL IVP PRN ×5 (02:19→22:33)
[2016-05-27] MEDS: MORPHINE SULFATE 4 MG/ML INJ IV PUSH PRN ×3 (02:37→22:39)
[2016-05-27] MEDS: RESP: ALBUTEROL 2.5 MG/IPRATROPIUM 0.5 MG NEB (SCH) INH (03:23)
[2016-05-27] MEDS: CHLORHEXIDINE GLUCONATE 2 % 1 PACK (2 CLOTHS) TOP SCH (04:00)
[2016-05-27] MEDS: MANNITOL 12.5 GM/50 ML VIAL IV SCH ×4 (05:35→23:25)
[2016-05-27] MEDS: INSULIN ASPART SUPPLEMENTAL SCALE SQ SCH ×4 (07:00→21:00)
[2016-05-27] MEDS: SODIUM CHLORIDE 0.9% FLUSH 5 ML FLUSH IVF SCH ×2 (08:45→21:57)
[2016-05-27] MEDS: PANTOPRAZOLE SODIUM 40 MG VIAL IVP SCH (08:46)
[2016-05-27] MEDS: LISINOPRIL 5 MG TAB PO SCH (08:46)
[2016-05-27] MEDS: PANTOPRAZOLE SOD 40 MG DELAYED RELEASE TAB PO SCH (08:46)
[2016-05-27] MEDS: DOCUSATE SODIUM 100 MG CAP PO SCH ×2 (08:46→21:57)
[2016-05-27] MEDS: NS + KCL 20 MEQ INJ 1,000 ML IV SCH ×2 (08:47→21:57)
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
[2016-05-28] VITALS (14 sets, daily range): BP systolic 122–160; BP diastolic 61–89; PULSE 58–105; RESP 12–21; TEMP 98.3–99.4; O2SAT 95–100
[2016-05-28] MEDS: CHLORHEXIDINE GLUCONATE 2 % 1 PACK (2 CLOTHS) TOP SCH (04:00)
[2016-05-28] MEDS: MANNITOL 12.5 GM/50 ML VIAL IV SCH ×4 (04:09→22:19)
[2016-05-28] MEDS: hydrALAZINE HCL 20 MG/ML VIAL IVP PRN ×2 (04:36→22:18)
[2016-05-28] MEDS: ACETAMINOPHEN/HYDROcodone 325 MG/10 MG TAB PO PRN ×3 (05:40→20:43)
[2016-05-28] MEDS: NS + KCL 20 MEQ INJ 1,000 ML IV SCH ×2 (06:42→16:27)
[2016-05-28] MEDS: INSULIN ASPART SUPPLEMENTAL SCALE SQ SCH ×4 (06:50→21:00)
[2016-05-28] MEDS: PANTOPRAZOLE SODIUM 40 MG VIAL IVP SCH (09:00)
[2016-05-28] MEDS: SODIUM CHLORIDE 0.9% FLUSH 5 ML FLUSH IVF SCH ×2 (09:00→20:44)
[2016-05-28] MEDS: DOCUSATE SODIUM 100 MG CAP PO SCH ×2 (09:11→20:43)
[2016-05-28] MEDS: PANTOPRAZOLE SOD 40 MG DELAYED RELEASE TAB PO SCH (09:12)
[2016-05-28] MEDS: MORPHINE SULFATE 4 MG/ML INJ IV PUSH PRN ×3 (09:12→20:44)
[2016-05-28] MEDS: LISINOPRIL 5 MG TAB PO SCH (09:12)
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
[2016-05-28] MEDS ORDERED: LISINOPRIL 5 MG TAB PO ONE (12:00)
[2016-05-28] MEDS: levETIRAcetam INJ 500 MG in SODIUM CHLORIDE 0.9% INJ 100 ML IV SCH ×3 (12:12)
[2016-05-28] MEDS: ACETAMINOPHEN 325 MG TAB PO PRN (16:26)
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
[2016-05-28] MEDS: GABAPENTIN 300 MG CAP PO SCH (17:21)
[2016-05-29] VITALS (14 sets, daily range): BP systolic 92–154; BP diastolic 59–92; PULSE 65–103; RESP 10–20; TEMP 98–99; O2SAT 93–98
[2016-05-29] MEDS: levETIRAcetam INJ 500 MG in SODIUM CHLORIDE 0.9% INJ 100 ML IV SCH ×2 (01:22→12:33)
[2016-05-29] MEDS: hydrALAZINE HCL 20 MG/ML VIAL IVP PRN ×2 (01:22→22:07)
[2016-05-29] MEDS: MORPHINE SULFATE 4 MG/ML INJ IV PUSH PRN ×3 (02:00→18:10)
[2016-05-29 02:02] LABS: AUTOMATED NEUTROPHIL # 6.9 TH/MM3 (1.8-7.7); BASOPHIL # 0.1 TH/MM3 (0-0.2); BASOPHIL % 0.7 % (0.0-2.0); EOSINOPHIL # 0.2 TH/MM3 (0-0.4); EOSINOPHIL % 2.1 % (0.0-4.0); HEMATOCRIT 39.7 % (39.0-51.0); HEMO FLAGS DIFF FINAL; LYMPH % 14.9 % (9.0-44.0); LYMPHOCYTE # 1.5 TH/MM3 (1.0-4.8); MEAN CELL VOLUME 77.3 FL (80.0-100.0); MEAN CORPUSCULAR HEMOGLOBIN 26.1 PG (27.0-34.0); MEAN CORPUSCULAR HGB CONC 33.8 % (32.0-36.0); MONO % 13.7 % (0.0-8.0); NEUT % 68.6 % (16.0-70.0); PLATELET COUNT 215 TH/MM3 (150-450); RED BLOOD COUNT 5.14 MIL/MM3 (4.50-5.90); RED CELL DISTRIBUTION WIDTH 14.9 % (11.6-17.2)
[2016-05-29 02:37] LABS: BICARBONATE 24.6 MEQ/L (21.0-32.0); POTASSIUM 4.1 MEQ/L (3.5-5.1)
[2016-05-29] MEDS: NS + KCL 20 MEQ INJ 1,000 ML IV SCH ×3 (03:14→22:42)
[2016-05-29] MEDS: ACETAMINOPHEN/HYDROcodone 325 MG/10 MG TAB PO PRN ×2 (03:45→12:51)
[2016-05-29] MEDS: CHLORHEXIDINE GLUCONATE 2 % 1 PACK (2 CLOTHS) TOP SCH (03:46)
[2016-05-29] MEDS: MANNITOL 12.5 GM/50 ML VIAL IV SCH ×4 (04:18→22:57)
[2016-05-29] MEDS: INSULIN ASPART SUPPLEMENTAL SCALE SQ SCH ×4 (07:00→20:17)
[2016-05-29] MEDS: SODIUM CHLORIDE 0.9% FLUSH 5 ML FLUSH IVF SCH ×2 (08:04→20:07)
[2016-05-29] MEDS: GABAPENTIN 300 MG CAP PO SCH ×3 (08:05→18:10)
[2016-05-29] MEDS: DOCUSATE SODIUM 100 MG CAP PO SCH ×2 (08:05→20:07)
[2016-05-29] MEDS: LISINOPRIL 10 MG TAB PO SCH (08:05)
[2016-05-29] MEDS: PANTOPRAZOLE SOD 40 MG DELAYED RELEASE TAB PO SCH (08:05)
[2016-05-29] MEDS: PANTOPRAZOLE SODIUM 40 MG VIAL IVP SCH (08:05)
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
[2016-05-30] VITALS (8 sets, daily range): BP systolic 118–155; BP diastolic 58–75; PULSE 69–95; RESP 11–18; TEMP 97.8–101; O2SAT 95–98
[2016-05-30] MEDS: levETIRAcetam INJ 500 MG in SODIUM CHLORIDE 0.9% INJ 100 ML IV SCH ×2 (01:07→12:38)
[2016-05-30] MEDS: ACETAMINOPHEN/HYDROcodone 325 MG/10 MG TAB PO PRN ×2 (01:11→11:17)
[2016-05-30] MEDS: MORPHINE SULFATE 4 MG/ML INJ IV PUSH PRN (02:12)
[2016-05-30] MEDS: CHLORHEXIDINE GLUCONATE 2 % 1 PACK (2 CLOTHS) TOP SCH ×2 (03:40→20:41)
[2016-05-30] MEDS: MANNITOL 12.5 GM/50 ML VIAL IV SCH ×2 (05:00→11:00)
[2016-05-30] MEDS: INSULIN ASPART SUPPLEMENTAL SCALE SQ SCH ×4 (06:47→20:49)
[2016-05-30] MEDS: SODIUM CHLORIDE 0.9% FLUSH 5 ML FLUSH IVF SCH ×2 (07:44→20:41)
[2016-05-30] MEDS: PANTOPRAZOLE SODIUM 40 MG VIAL IVP SCH (07:55)
[2016-05-30] MEDS: PANTOPRAZOLE SOD 40 MG DELAYED RELEASE TAB PO SCH (08:01)
[2016-05-30] MEDS: GABAPENTIN 300 MG CAP PO SCH ×3 (08:01→17:04)
[2016-05-30] MEDS: DOCUSATE SODIUM 100 MG CAP PO SCH ×2 (08:01→20:41)
[2016-05-30] MEDS: LISINOPRIL 10 MG TAB PO SCH (08:01)
[2016-05-30] MEDS: NS + KCL 20 MEQ INJ 1,000 ML IV SCH ×2 (08:02→17:05)
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
[2016-05-30] MEDS: levETIRAcetam 500 MG TAB PO SCH (20:39)
[2016-05-30] MEDS: ACETAMINOPHEN 325 MG TAB PO PRN (20:42)
[2016-05-31] VITALS (8 sets, daily range): BP systolic 101–143; BP diastolic 52–86; PULSE 64–112; RESP 18–24; TEMP 95.9–100.2; O2SAT 96–98
[2016-05-31] MEDS: INSULIN ASPART SUPPLEMENTAL SCALE SQ SCH ×4 (05:17→20:05)
[2016-05-31] MEDS: ACETAMINOPHEN/HYDROcodone 325 MG/10 MG TAB PO PRN (05:17)
[2016-05-31] MEDS: NS + KCL 20 MEQ INJ 1,000 ML IV SCH (05:18)
[2016-05-31] MEDS: SODIUM CHLORIDE 0.9% FLUSH 5 ML FLUSH IVF SCH ×2 (09:00→20:01)
[2016-05-31] MEDS: levETIRAcetam 500 MG TAB PO SCH ×2 (09:26→20:01)
[2016-05-31] MEDS: GABAPENTIN 300 MG CAP PO SCH ×3 (09:26→18:00)
[2016-05-31] MEDS: DOCUSATE SODIUM 100 MG CAP PO SCH ×2 (09:26→20:01)
[2016-05-31] MEDS: PANTOPRAZOLE SOD 40 MG DELAYED RELEASE TAB PO SCH (09:26)
[2016-05-31] MEDS: LISINOPRIL 10 MG TAB PO SCH (09:26)
[2016-05-31 09:44] LABS: BICARBONATE 24.6 MEQ/L (21.0-32.0)
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
[2016-05-31] MEDS ORDERED: LEVE500 PO (12:10)
[2016-05-31] MEDS ORDERED: DOCU1CAP39 PO (12:10)
[2016-05-31] MEDS ORDERED: PANT40TA3 PO (12:10)
[2016-05-31] MEDS ORDERED: AMLO10 PO (12:10)
[2016-05-31] MEDS ORDERED: NEUR300C PO (12:10)
--- NOTE | 2016-05-31 12:30 | HHI.DS ---
Discharge Summary Admitting Diagnosis CBC/BMP: 05/29/16 0155 05/31/16 0817 Significant Findings Imaging Discharge Instructions Speech Therapy-Diet Recommends: Regular Activities you can perform: Weight Bearing as Mel Melani Urbano MD May 31, 2016 12:30 Melani Urbano MD May 31, 2016 12:30 10 MG PO DAILY HTN Days 30 TAB Docusate Sodium (Dok) 100 Mg Cap 100 MG PO BID BM Days 30 CAP Gabapentin (Neurontin) 300 Mg Cap 300 MG PO TID SOCIAL MEDIA CONTENT SPECIALIST Days 30 CAP Levetiracetam (Keppra) 500 Mg Tab 500 MG PO Q12HR SOCIAL MEDIA CONTENT SPECIALIST Days 30 TAB Pantoprazole (Pantoprazole) 40 Mg Tab 40 MG PO DAILY GI Days 30 TAB Continued Medications: Multiple Vitamins W/ Minerals (Centrum Silver) 1 Tab 1 TAB PO DAILY Nutritional Supplement Ref 0 TAB Discontinued Medications: Alprazolam (Alprazolam) 0.25 Mg Tab 0.25 MG PO DAILY PRN ANXIETY Ref 0 TAB Aspirin (Aspirin) 81 Mg Tabdr 81 MG PO DAILY TAB Atorvastatin (Atorvastatin) 40 Mg Tab 40 MG PO EVERY OTHER DAY Cholesterol Management #30 Ref 0 TAB Ferrous Sulfate (Ferrous Sulfate) 325 Mg Tab 325 MG PO DAILY Nutritional Supplement #30 Ref 0 TAB Gabapentin (Gabapentin) 800 Mg Tab 800 MG PO TID #90 Ref 0 TAB Ibuprofen (Motrin Ib) 200 Mg Tab 400 MG PO DAILY PRN PAIN Ref 0 TAB Montelukast (Singulair) 10 Mg Tab 10 MG PO DAILY #30 Ref 0 TAB Nitroglycerin SL (Nitroglycerin SL) 0.4 Mg Subl 0.4 MG SL DIRECTED ONE TABLET UNDER THE TONGUE NEEDED FOR CHEST PAIN, MAY REPEAT EVERY FIVE MINUTES FOR A TOTAL OF 3 DOSES OR CALL 911 IF NO RELIEF PRN CHEST PAIN #100 Ref 0 TAB.SL Melani Urbano MD May 31, 2016 12:30 05/31/16 0817 Significant Findings Laboratory Tests Test 05/29/16 05/31/16 01:55 08:17 Mean Corpuscular Volume 77.3 FL (80.0-100.0) Mean Corpuscular Hemoglobin 26.1 PG (27.0-34.0) Monocytes (%) (Auto) 13.7 % (0.0-8.0) Monocytes # (Auto) 1.4 TH/MM3 (0-0.9) Sodium Level 135 MEQ/L 135 MEQ/L (136-145) (136-145) Estimat Glomerular Filtration 85 ML/MIN (>89) 65 ML/MIN (>89) Rate Random Glucose 122 MG/DL 124 MG/DL (74-106) (74-106) Imaging Last Impressions Head CT 05/26/16 0600 Signed Impressions: Service Date/Time: Thursday, May 26, 2016 04:21 - CONCLUSION: Interval right parietal-occipital hematoma evacuation with drain placement. No new acute findings Bridger Ma MD Chest X-Ray 05/24/16 0000 Signed Impressions: Service Date/Time: Tuesday, May 24, 2016 12:36 - CONCLUSION: Central line in good position without pneumothorax. Kurtis Kirby MD FACR Wrist X-Ray 05/23/16 Signed Impressions: Service Date/Time: May 00:22 - CONCLUSION: 1. No acute findings. Jose Porter MD Hand X-Ray 05/23/16 Signed Impressions: Service Date/Time: May 01:12 - CONCLUSION: 1. No acute findings. Mild osteoarthritis. Surgical clips present around the distal left radius. Jose Porter MD Brain MRI 05/23/16 Signed Impressions: Service Date/Time: May 15:47 - CONCLUSION: 1. Right occipital lobe hematoma described above without evidence of underlying mass. The findings on a background of chronic hemorrhage and likely related to amyloid angiopathy. Manny Kim MD Head CTA 05/22/16 0000 Signed Impressions: Service Date/Time: Sunday, May 22, 2016 23:24 - CONCLUSION: 1. Unremarkable CTA brain. No evidence for arteriovenous malformation. Again seen is right occipital lobe hemorrhage and small left frontal lobe hemorrhage. See recent head CT report. Jose Porter MD Cervical Spine CT 05/22/16 0000 Signed Impressions: Service Date/Time: Sunday, May 22, 2016 21:44 - CONCLUSION: No evidence of acute fracture or traumatic listhesis. Degenerative changes with marginal spurring and mild to moderate neural foraminal encroachment. Mild/moderate central spinal stenosis at C5-6 due to large posterior bony bar. Large left occipital lobe hematoma identified on CT scan of the head is again noted. Mika Galindo MD PE at Discharge head- kathie in place, incisions dry NAD, oriented to person, place and year anicteric lungs no rales regular rhythm abdomen soft, nontender extremities no edema moves all extremities spontaneously Pt update on day of discharge patient awake and alert x 3 motivated with PT no pain complains Pt Condition on Discharge: Stable Discharge Disposition: Discharge to SNF Discharge Time: <= 30 minutes Discharge Instructions DIET: Follow Instructions for: Heart Healthy Diet, Diabetic Diet Speech Therapy-Diet Recommends: Regular Activities you can perform: Weight Bearing as Mel Follow up Referrals: Neurosurgery - 2 Weeks with Maxx Trejo MD PCP Follow-up - 06/03/16 with Daniel Vazquez M.d. New Medications: Amlodipine (Norvasc) 10 Mg Tab 10 MG PO DAILY HTN Days 30 TAB Docusate Sodium (Dok) 100 Mg Cap 100 MG PO BID BM Days 30 CAP Gabapentin (Neurontin) 300 Mg Cap 300 MG PO TID SOCIAL MEDIA CONTENT SPECIALIST Days 30 CAP Levetiracetam (Keppra) 500 Mg Tab 500 MG PO Q12HR SOCIAL MEDIA CONTENT SPECIALIST Days 30 TAB Pantoprazole (Pantoprazole) 40 Mg Tab 40 MG PO DAILY GI Days 30 TAB Continued Medications: Multiple Vitamins W/ Minerals (Centrum Silver) 1 Tab 1 TAB PO DAILY Nutritional Supplement Ref 0 TAB Discontinued Medications: Alprazolam (Alprazolam) 0.25 Mg Tab 0.25 MG PO DAILY PRN ANXIETY Ref 0 TAB Aspirin (Aspirin) 81 Mg Tabdr 81 MG PO DAILY TAB Atorvastatin (Atorvastatin) 40 Mg Tab 40 MG PO EVERY OTHER DAY Cholesterol Management #30 Ref 0 TAB Ferrous Sulfate (Ferrous Sulfate) 325 Mg Tab 325 MG PO DAILY Nutritional Supplement #30 Ref 0 TAB Gabapentin (Gabapentin) 800 Mg Tab 800 MG PO TID #90 Ref 0 TAB Ibuprofen (Motrin Ib) 200 Mg Tab 400 MG PO DAILY PRN PAIN Ref 0 TAB Montelukast (Singulair) 10 Mg Tab 10 MG PO DAILY #30 Ref 0 TAB Nitroglycerin SL (Nitroglycerin SL) 0.4 Mg Subl 0.4 MG SL DIRECTED ONE TABLET UNDER THE TONGUE NEEDED FOR CHEST PAIN, MAY REPEAT EVERY FIVE MINUTES FOR A TOTAL OF 3 DOSES OR CALL 911 IF NO RELIEF PRN CHEST PAIN #100 Ref 0 TAB.SL Melani Urbano MD May 31, 2016 12:30 Continued Medications: Multiple Vitamins W/ Minerals (Centrum Silver) 1 Tab 1 TAB PO DAILY Nutritional Supplement Ref 0 TAB Discontinued Medications: Alprazolam (Alprazolam) 0.25 Mg Tab 0.25 MG PO DAILY PRN ANXIETY Ref 0 TAB Aspirin (Aspirin) 81 Mg Tabdr 81 MG PO DAILY TAB Atorvastatin (Atorvastatin) 40 Mg Tab 40 MG PO EVERY OTHER DAY Cholesterol Management #30 Ref 0 TAB Ferrous Sulfate (Ferrous Sulfate) 325 Mg Tab 325 MG PO DAILY Nutritional Supplement #30 Ref 0 TAB Gabapentin (Gabapentin) 800 Mg Tab 800 MG PO TID #90 Ref 0 TAB Ibuprofen (Motrin Ib) 200 Mg Tab 400 MG PO DAILY PRN PAIN Ref 0 TAB Montelukast (Singulair) 10 Mg Tab 10 MG PO DAILY #30 Ref 0 TAB Nitroglycerin SL (Nitroglycerin SL) 0.4 Mg Subl 0.4 MG SL DIRECTED ONE TABLET UNDER THE TONGUE NEEDED FOR CHEST PAIN, MAY REPEAT EVERY FIVE MINUTES FOR A TOTAL OF 3 DOSES OR CALL 911 IF NO RELIEF PRN CHEST PAIN #100 Ref 0 TAB.SL Melani Urbano MD May 31, 2016 12:30 Melani Urbano MD May 31, 2016 12:30
[2016-05-31] MEDS ORDERED: LISI10TA3 PO (15:56)
[2016-05-31] MEDS: QUEtiapine FUMARATE 25 MG TAB PO SCH (20:01)
[2016-05-31] MEDS: CHLORHEXIDINE GLUCONATE 2 % 1 PACK (2 CLOTHS) TOP SCH (20:05)
[2016-06-01] VITALS (12 sets, daily range): BP systolic 74–143; BP diastolic 46–80; PULSE 76–100; RESP 20–22; TEMP 95.9–98.9; O2SAT 95–99
[2016-06-01] MEDS: ACETAMINOPHEN/HYDROcodone 325 MG/10 MG TAB PO PRN ×2 (01:23→08:37)
[2016-06-01] MEDS: INSULIN ASPART SUPPLEMENTAL SCALE SQ SCH ×4 (05:15→21:32)
[2016-06-01] MEDS: SODIUM CHLORIDE 0.9% FLUSH 5 ML FLUSH IVF SCH ×2 (08:32→21:31)
[2016-06-01] MEDS: DOCUSATE SODIUM 100 MG CAP PO SCH ×2 (08:33→21:31)
[2016-06-01] MEDS: levETIRAcetam 500 MG TAB PO SCH (08:33)
[2016-06-01] MEDS: GABAPENTIN 300 MG CAP PO SCH ×3 (08:33→17:58)
[2016-06-01] MEDS: QUEtiapine FUMARATE 25 MG TAB PO SCH ×2 (08:33→21:31)
[2016-06-01] MEDS: PANTOPRAZOLE SOD 40 MG DELAYED RELEASE TAB PO SCH (08:33)
[2016-06-01] MEDS: LISINOPRIL 10 MG TAB PO SCH (08:33)
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
[2016-06-01] MEDS ORDERED: SODIUM CHLORID 0.9% 500 ML INJ 500 ML IV ONE (12:00)
[2016-06-01] MEDS: SODIUM CHLOR 0.9% 1000 ML INJ 1,000 ML IV SCH ×2 (13:52→17:48)
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
[2016-06-01] MEDS ORDERED: SODIUM CHLOR 0.9% 1000 ML INJ 1,000 ML IV ONE (15:15)
--- NOTE | 2016-06-01 16:23 | RADRPT ---
EXAM DATE/TIME: 06/01/2016 15:44 [facility] COMPARISON: CT BRAIN W/O CONTRAST, May 26, 2016, 4:21. CT BRAIN W/O CONTRAST, May 22, 2016, 21:44. INDICATIONS : Altered mental status. RADIATION DOSE: 63.99 CTDIvol (mGy) MEDICAL HISTORY : Cardiovascular disease. Hypertension. SURGICAL HISTORY : None. ENCOUNTER: Initial ACUITY: 1 day PAIN SCALE: 0/10 LOCATION: cranial TECHNIQUE: Multiple contiguous axial images were obtained of the head. Using automated exposure control and adj ustment of the mA and/or kV according to patient size, radiation dose was kept as low as reasonably a chievable to obtain optimal diagnostic quality images. FINDINGS: Right parietal drain has been removed. There is a small right parietal subdural hematoma that measure s up to 3.6 mm in maximal thickness. Focal encephalomalacia seen in the right parietal lobe, more con spicuous than before. The parenchymal hemorrhage in this area has almost completely resolved. No new bleed. No mass effect or midline shift. No evidence of an acute ischemic event. CONCLUSION: Intracranial drain removed. Small right parietal subdural hemorrhage again noted, not significantly c hanged. The focal right parietal lobe encephalomalacia is more conspicuous but the intraparenchymal b lood is resolving. Bridger Rehman MD on June 01, 2016 at 16:19 Board Certified Radiologist. This report was verified electronically.
--- NOTE | 2016-06-01 16:47 | HHI.PR ---
Addendum to Inpatient Note Addendum Reason: Additional Documentation Additional Information this pm episode of blank stares had earlier complained of headache- got 2 tabs of [place] 10 mg hypotensive BP SBPs low sinus rhythm BS 120 On exam awake and alert, oriented x 3, speech clear neuro exam unchanged, left visual field defect- unchanged ff all commands and answers appropriately, no generalized seizure noted goes into brief seconds episodes blank stares- seems to space out. having difficulty urinating Change in MS possible SZ Hypotension- get a Head CT. EEG CBC BMP Hypotension- responded to fluids start maintenance IVF HOld BP meds. Patient on Keppra 500 mg po bid- increase to 1 gm bid - IV give 500 mg IV Keppra now decrease po pain meds Acute Urinary retention- bladder scan- 875 cc caruso placed - 1500cc keep caruso transfer to [facility] for close monitoring will inform Dr. Trejo. Melani Urbano MD Jun 01, 2016 16:47
[2016-06-01] MEDS ORDERED: PILL SPLITTER OTHER PRN (17:00)
[2016-06-01] MEDS ORDERED: levETIRAcetam INJ 500 MG in SODIUM CHLORIDE 0.9% INJ 100 ML IV ONE (17:30)
[2016-06-01 18:12] LABS: AUTOMATED NEUTROPHIL # 7.3 TH/MM3 (1.8-7.7); BASOPHIL # 0.1 TH/MM3 (0-0.2); BASOPHIL % 0.9 % (0.0-2.0); EOSINOPHIL # 0.3 TH/MM3 (0-0.4); EOSINOPHIL % 2.5 % (0.0-4.0); HEMATOCRIT 40.8 % (39.0-51.0); HEMO FLAGS DIFF FINAL; LYMPH % 13.7 % (9.0-44.0); LYMPHOCYTE # 1.4 TH/MM3 (1.0-4.8); MEAN CELL VOLUME 78.7 FL (80.0-100.0); MONO % 11.1 % (0.0-8.0); NEUT % 71.8 % (16.0-70.0); PLATELET COUNT 245 TH/MM3 (150-450); RED BLOOD COUNT 5.19 MIL/MM3 (4.50-5.90); RED CELL DISTRIBUTION WIDTH 14.9 % (11.6-17.2); WHITE BLOOD COUNT 10.2 TH/MM3 (4.0-11.0)
[2016-06-01 18:21] LABS: BICARBONATE 23.3 MEQ/L (21.0-32.0); POTASSIUM 4.2 MEQ/L (3.5-5.1)
[2016-06-01 18:25] LABS: APTT (PATIENT) 25.1 SEC (24.3-30.1); PROTHROMBIN TIME - PATIENT 10.9 SEC (9.8-11.6)
[2016-06-01 18:48] LABS: BLOOD, URINE NEG (NEG); GLUCOSE,URINE NEG (NEG); HYALINE CAST, URINE 1 /lpf (RARE); KETONE, URINE NEG (NEG); NITRITE,URINE NEG (NEG); PH, URINE 5.5 (5.0-8.5); SQUAMOUS EPITHELIAL CELL URINE <1 /hpf (0-5); URINE COLOR LIGHT-YELLOW (YELLW/STRAW)
[2016-06-01 18:49] LABS: COMMENT (UR) CATH-CULT NOT IND; CULTURE IF INDICATED CATH CULTURE NOT IND
[2016-06-01] MEDS ORDERED: levETIRAcetam 500 MG TAB PO SCH (21:00)
[2016-06-01] MEDS: levETIRAcetam 1000 MG INJ 100 ML IV SCH (21:31)
[2016-06-02] VITALS (11 sets, daily range): BP systolic 108–151; BP diastolic 56–86; PULSE 9–90; RESP 12–22; TEMP 98–98.8; O2SAT 94–99
[2016-06-02] MEDS: CHLORHEXIDINE GLUCONATE 2 % 1 PACK (2 CLOTHS) TOP SCH (04:00)
[2016-06-02] MEDS: INSULIN ASPART SUPPLEMENTAL SCALE SQ SCH ×4 (06:12→22:05)
[2016-06-02] MEDS: SODIUM CHLORIDE 0.9% FLUSH 5 ML FLUSH IVF SCH ×2 (09:00→22:05)
[2016-06-02] MEDS: PANTOPRAZOLE SOD 40 MG DELAYED RELEASE TAB PO SCH (09:18)
[2016-06-02] MEDS: GABAPENTIN 300 MG CAP PO SCH ×3 (09:18→18:34)
[2016-06-02] MEDS: QUEtiapine FUMARATE 25 MG TAB PO SCH ×2 (09:18→22:04)
[2016-06-02] MEDS: SODIUM CHLOR 0.9% 1000 ML INJ 1,000 ML IV SCH (09:18)
[2016-06-02] MEDS: DOCUSATE SODIUM 100 MG CAP PO SCH ×2 (09:18→22:04)
[2016-06-02] MEDS: levETIRAcetam 1000 MG INJ 100 ML IV SCH ×2 (09:18→22:05)
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
[2016-06-02 11:52] LABS: ALKALINE PHOSPHATASE 64 U/L (45-117); ALT (GPT) 27 U/L (12-78); ANION GAP 8 MEQ/L (5-15); AST (GOT) 21 U/L (15-37); BICARBONATE 24.7 MEQ/L (21.0-32.0); BLOOD UREA NITROGEN 16 MG/DL (7-18); CHLORIDE 106 MEQ/L (98-107); GLOMERULAR FILTRATION RATE 55 ML/MIN (>89); SODIUM (NA) 139 MEQ/L (136-145); TOTAL BILIRUBIN ADULT 0.4 MG/DL (0.2-1.0)
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
--- NOTE | 2016-06-02 19:10 | MG ---
cc: BAL ISBELL M.D. Lab No: Date: 06/02/2016 Age: 66 Sex: M Race: REQUESTING: Dr. Urbano. HISTORY: An EEG was obtained on this 66-year-old patient with history of right parietooccipital hemorrhage and seizure-like activity. DESCRIPTION OF RECORD: The patient is described as awake and asleep. This EEG is showing a mixture of rhythms including some beta activity diffusely, significant amount of alpha rhythms bilaterally but there is also theta activity and some delta rhythms. The slower rhythms seem to correlate with drowsiness. There is awake and asleep activity. There is somewhat higher amplitude on the left and there is also possibly slower rhythms on the left central temporal head region. Photic stimulation was unremarkable. INTERPRETATION: Mildly abnormal EEG because of mild intermittent slow bilaterally, possibly left more than right. As there is a report of a right occipitoparietal structural lesion, there is no obvious EEG abnormality to correlate with this unless the lower amplitude rhythms in this area are at the more significant finding. Specifically, no epileptiform features present. Bal Isbell MD [facility] /4:53 PM /6:04 PM
[2016-06-03] VITALS (8 sets, daily range): BP systolic 128–148; BP diastolic 68–98; PULSE 64–95; RESP 16–18; TEMP 96.1–99.2; O2SAT 93–98
[2016-06-03] MEDS: CHLORHEXIDINE GLUCONATE 2 % 1 PACK (2 CLOTHS) TOP SCH (03:41)
[2016-06-03] MEDS: INSULIN ASPART SUPPLEMENTAL SCALE SQ SCH ×4 (06:48→21:00)
[2016-06-03] MEDS: PANTOPRAZOLE SOD 40 MG DELAYED RELEASE TAB PO SCH (08:56)
[2016-06-03] MEDS: QUEtiapine FUMARATE 25 MG TAB PO SCH ×2 (08:56→21:10)
[2016-06-03] MEDS: DOCUSATE SODIUM 100 MG CAP PO SCH ×2 (08:56→21:10)
[2016-06-03] MEDS: GABAPENTIN 300 MG CAP PO SCH ×3 (08:56→17:51)
[2016-06-03] MEDS: levETIRAcetam 1000 MG INJ 100 ML IV SCH ×2 (08:58→21:10)
[2016-06-03] MEDS: SODIUM CHLOR 0.9% 1000 ML INJ 1,000 ML IV SCH ×3 (08:59→21:20)
[2016-06-03] MEDS: SODIUM CHLORIDE 0.9% FLUSH 5 ML FLUSH IVF SCH ×2 (09:16→21:11)
--- NOTE | 2016-06-03 11:11 | HHI.PR ---
Review/Management Daily Summary 06/03 eeg seen, unremarkable/nonepileptiform seen ambulating with PT continue medical and rehab care keppra as is Subjective Subjective Comments No acute/new neuro events reported Headache after mild PT activity Active Medications Current Medications Medications (Trade) Dose Ordered Sig/Chaz Route Start Time Stop Time Status Last Admin (fentaNYL INJ) 25 mcg Q1H PRN IV PUSH 05/23/16 00:45 05/29/16 20:08 (Dulcolax Ec) 10 mg DAILY PRN PO 05/23/16 00:45 05/27/16 08:45 Miscellaneous Information 1 Q361D XX 05/23/16 00:45 05/23/16 00:45 (Chlorhexidine 2% Cloth) Taper DAILY@04 TOP 05/23/16 04:00 05/19/17 03:59 06/02/16 04:00 Chlorhexidine Gluconate 3 pack 3 pack UNSCH PRN TOP 05/23/16 00:45 (Cardene Inj/NS 250 ml Inj) 260 ml @ 0 mls/hr TITRATE IV 05/23/16 01:30 05/25/16 02:37 (D50w (Vial) Inj) 25 ml UNSCH PRN IV PUSH 05/23/16 01:30 (Glucagon Inj) 1 mg UNSCH PRN OTHER 05/23/16 01:30 (NS Flush) 2 ml UNSCH PRN IVF 05/24/16 12:45 (NS Flush) 2 ml BID IVF 05/24/16 21:00 06/03/16 09:16 (Dulcolax Supp) 10 mg DAILY PRN CA 05/24/16 12:45 (Colace) 100 mg BID PO 05/24/16 21:00 06/03/16 08:56 (Protonix) 40 mg DAILY PO 05/25/16 09:00 06/03/16 08:56 (Zofran Inj) 4 mg Q6H PRN IV 05/24/16 12:45 Calcium Gluconate 1 gm 1 gm UNSCH PRN IV 05/24/16 12:45 Potassium Chloride 100 ml @ 50 mls/hr UNSCH PRN IV 05/24/16 12:45 (Magnesium Sulfate Inj/NS Inj) 108 ml @ 108 mls/hr UNSCH PRN IV 05/24/16 12:45 (Equality 10-325 Mg) 1 tab Q4H PRN PO 05/24/16 12:45 05/31/16 05:17 (Morphine Inj) 2 mg Q2H PRN IV PUSH 05/24/16 12:45 05/29/16 02:00 (Morphine Inj) 4 mg Q2H PRN IV PUSH 05/24/16 12:45 05/30/16 02:12 (Norvasc) 10 mg DAILY PO 05/25/16 09:00 Hold 06/01/16 08:33 (Apresoline Inj) 20 mg Q2H PRN IVP 05/25/16 11:45 05/29/16 22:07 (Prinivil) 10 mg DAILY PO 05/29/16 09:00 Hold 06/01/16 08:33 (Tylenol) 650 mg Q6H PRN PO 05/28/16 16:00 05/30/16 20:42 Gabapentin 300 mg 300 mg TID PO 05/28/16 18:00 06/03/16 08:56 (NS 1000 ml Inj) 1,000 ml @ 100 mls/hr Q10H IV 06/01/16 13:45 06/03/16 09:16 (SEROquel) 12.5 mg BID PO 06/01/16 21:00 06/03/16 08:56 Miscellaneous 1 ea 1 ea UNSCH PRN OTHER 06/01/16 17:00 (Keppra 1000 Mg Inj) 100 ml @ 400 mls/hr Q12HR IV 06/01/16 21:00 06/03/16 08:58 Allergies Allergies Coded Allergies Keflex (Verified Allergy, Severe, EDEMA THROAT, 05/22/16) Mevacor (Unverified Allergy, Severe, 05/22/16) Exam I&O / VS 06/02/16 06/02/16 06/03/16 15:00 23:00 07:00 Intake Total 1461 ml 480 ml Output Total 1850 ml 1100 ml Balance -389 ml -620 ml Intake Oral 480 ml 480 ml IV Total 981 ml Output Urine Total 1850 ml 1100 ml # Bowel Movements 1 Vital Signs Date Time Temp Pulse Resp B/P Pulse Ox O2 Delivery O2 Flow Rate FiO2 06/03/16 08:15 96.1 89 18 148/98 98 06/03/16 04:00 99.2 95 18 128/75 96 06/03/16 00:00 98.0 64 18 132/80 93 06/02/16 22:43 88 06/02/16 20:00 98.0 67 18 138/82 96 06/02/16 16:00 98.2 70 18 149/86 96 06/02/16 15:00 90 06/02/16 12:00 98.6 9 20 151/85 99 06/02/16 11:20 94 21 Shai Isbell MD Jun 03, 2016 11:11
[2016-06-03] MEDS: ACETAMINOPHEN/HYDROcodone 325 MG/10 MG TAB PO PRN ×2 (11:38→21:09)
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
[2016-06-04] VITALS: BP 165/72; PULSE 75; RESP 24; TEMP 98.9; O2SAT 94
[2016-06-04] MEDS: SODIUM CHLOR 0.9% 1000 ML INJ 1,000 ML IV SCH ×2 (01:45→13:00)
[2016-06-04] MEDS: ACETAMINOPHEN/HYDROcodone 325 MG/10 MG TAB PO PRN ×3 (03:11→12:59)
[2016-06-04] MEDS: CHLORHEXIDINE GLUCONATE 2 % 1 PACK (2 CLOTHS) TOP SCH (03:51)
[2016-06-04 04:00] VITALS: BP 133/63; PULSE 86; RESP 16; TEMP 98.7; O2SAT 94
[2016-06-04] MEDS: INSULIN ASPART SUPPLEMENTAL SCALE SQ SCH ×3 (06:05→15:27)
[2016-06-04 08:34] VITALS: BP 148/79; PULSE 18; RESP 18; TEMP 97.9; O2SAT 96
[2016-06-04] MEDS: PANTOPRAZOLE SOD 40 MG DELAYED RELEASE TAB PO SCH (08:38)
[2016-06-04] MEDS: DOCUSATE SODIUM 100 MG CAP PO SCH (08:38)
[2016-06-04] MEDS: GABAPENTIN 300 MG CAP PO SCH ×2 (08:38→12:59)
[2016-06-04] MEDS: QUEtiapine FUMARATE 25 MG TAB PO SCH (08:38)
[2016-06-04] MEDS: levETIRAcetam 1000 MG INJ 100 ML IV SCH (08:38)
[2016-06-04] MEDS: SODIUM CHLORIDE 0.9% FLUSH 5 ML FLUSH IVF SCH (08:38)
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
[2016-06-04] MEDS ORDERED: amLODIPine BESYLATE 5 MG TAB PO SCH ×2 (10:45→11:00)
[2016-06-04 12:08] VITALS: BP 128/67; PULSE 18; RESP 18; TEMP 97.7; O2SAT 96
[2016-06-04 12:09] LABS: BICARBONATE 29.7 MEQ/L (21.0-32.0); POTASSIUM 4.2 MEQ/L (3.5-5.1)
[2016-06-04] MEDS ORDERED: NEUR300C PO (14:21)
[2016-06-04] MEDS ORDERED: PANT40TA3 PO (14:21)
[2016-06-04] MEDS ORDERED: AMLO5 PO (14:21)
[2016-06-04] MEDS ORDERED: DOCU1CAP39 PO (14:21)
[2016-06-04] MEDS ORDERED: LEVE500 PO (14:21)
[2016-06-04] MEDS ORDERED: ACET325T PO (14:21)
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
[2016-06-04] MEDS ORDERED: levETIRAcetam 500 MG TAB PO SCH (21:00)
[2016-07-23] MEDS ORDERED: NEUR300C PO (15:37)
[2016-07-23] MEDS ORDERED: GABA600T PO (15:40)
== END 2016-06-04 16:28 | DRG 23 ==
LOC: NEPC 21:01 → NEDA 22:24 → N03B 05-23 02:24 → N05B 05-30 20:11 → N03B 06-01 17:11 → N05A 06-02 15:21
PROVIDERS: ADMIT Emergency Medicine; ATTEND Internal Medicine
PROC: 00C70ZZ Extirpation of Matter from Cerebral Hemisphere, Open Approach (ICD-10-PCS; principal; 2016-05-24 08:32)
DX: I61.9 Nontraumatic intracerebral hemorrhage, unspecified (principal); S06.320A Contusion and laceration of left cerebrum without loss of consciousness, initial encounter; N17.9 Acute kidney failure, unspecified; I95.89 Other hypotension; M62.82 Rhabdomyolysis; E11.40 Type 2 diabetes mellitus with diabetic neuropathy, unspecified; G93.89 Other specified disorders of brain; I16.9 Hypertensive crisis, unspecified; R56.9 Unspecified convulsions; J43.9 Emphysema, unspecified; E78.5 Hyperlipidemia, unspecified; I25.10 Atherosclerotic heart disease of native coronary artery without angina pectoris; I25.2 Old myocardial infarction; R33.9 Retention of urine, unspecified; M25.531 Pain in right wrist; F41.9 Anxiety disorder, unspecified; F32.9 Major depressive disorder, single episode, unspecified; I10 Essential (primary) hypertension; K21.9 Gastro-esophageal reflux disease without esophagitis; J45.909 Unspecified asthma, uncomplicated; H53.462 Homonymous bilateral field defects, left side; V23.4XXA Motorcycle driver injured in collision with car, pick-up truck or van in traffic accident, initial encounter; Y92.410 Unspecified street and highway as the place of occurrence of the external cause; Z95.5 Presence of coronary angioplasty implant and graft; Z95.1 Presence of aortocoronary bypass graft; Z86.73 Personal history of transient ischemic attack (TIA), and cerebral infarction without residual deficits; Z87.891 Personal history of nicotine dependence; Z88.1 Allergy status to other antibiotic agents; Z88.8 Allergy status to other drugs, medicaments and biological substances
CPT/HCPCS: 70450; 70496; 70553; 71010; 72125; 73110; 73130; 76937; 80048; 80053; 80320; 81001; 82140; 82550; 82552; 82948; 83605; 83735; 83930; 84100; 84295; 84443; 84484; 85025; 85610; 85730; 87641; 88304; 90714; 93005; 93306; 94150; 94640; 94664; 95819; 96374; A9579; C1713; C9113; J0131; J0360; J0690; J1100; J1580; J1815; J1953; J2150; J2250; J2270; J2370; J2405; J3010; J3370; J3480; J7030; J7040; J7050; J7120; L0150; Q9967

== ENCOUNTER 2016-08-30 14:21 | Emergency (ER) | payer MEDICARE, OTHER ==
[~2016-08-30] VITALS: Ht 177.8 cm; Wt 105.0 kg
[~2016-08-30 14:21] MED LIST changes: +ACET325T PO; -ALPR0.5T3 PO; -ALPR0.5T99 PO; +AMLO5 PO; -AMLO5TAB96 PO; -ASPI325T PO; -CEPH500C3 PO; -DIOV80TA4 PO; +DOCU1CAP39 PO; -EZET10 PO; -FIBEPOW OR; -FLUTI220I INH; +GABA600T PO; -JANU50TA5 PO; -LEVA0.3113 NEB; +LEVE500 PO; -METO100T OR; -METR250 PO; -NEXI40CA PO; +OMEP40CA2 PO; +PANT40TA3 PO; -PRED20 PO; -RANI150 PO; -ROSU5 PO; -SING4GRA PO; -STOO100T PO; -TAB-TAB PO
[2016-08-30 14:30] VITALS: BP 145/77; PULSE 56; RESP 18; TEMP 98.1; O2SAT 96
[2016-08-30] MEDS ORDERED: MONT10TA2 PO (14:44)
[2016-08-30] MEDS ORDERED: POTA10CA PO (14:44)
[2016-08-30] MEDS ORDERED: TOPR50TA PO (14:44)
[2016-08-30] MEDS ORDERED: HYDR-3288 PO (14:44)
[2016-08-30] MEDS ORDERED: LIPI40TA PO (14:44)
[2016-08-30] MEDS ORDERED: ALPR.25 PO (14:44)
[2016-08-30] MEDS ORDERED: PROZ20CA11 PO (14:44)
[2016-08-30] MEDS ORDERED: SODIUM CHLORIDE 0.9% FLUSH 5 ML FLUSH IV FLUSH PRN (15:00)
--- NOTE | 2016-08-30 15:12 | PD ---
HPI Chief Complaint: General Weakness Time Seen by Provider: 14:41 Travel History International Travel<30 days: No Contact w/Intl Traveler<30days: No Traveled to known affect area: No History of Present Illness HPI This is a 66-year-old male with a history of intracranial hemorrhage status post craniotomy who presents to the emergency department with increasing unsteadiness of his gait, lightheadedness, generalized fatigue and feeling like he is going to pass out. His says that he's been having to grab onto prieto to walk. Today they were at a yard sale and she had help him because she thought he was given a fall and she had guide him into the car. He denies any fevers or chills and denies any chest pain or shortness of breath. He has been following with Dr. Trejo for increasing hydrocephalus and they had a plan to put in a CONSTRUCTION TECHNOLOGY INSTRUCTOR shunt on September 04. His is concerned that his symptoms are worsening. PFSH Past Medical History Hx Anticoagulant Therapy: Yes (ASA) Asthma: Yes Anxiety: Yes Cardiovascular Problems: Yes (MA, STENTS, BY PASS SURGERY) High Cholesterol: Yes COPD: Yes Cerebrovascular Accident: Yes (2003 AND 2004) Diabetes: Yes (borderline, not on antihyperglycemics) Endocrine: Yes Hypertension: Yes Psychiatric: Yes Myocardial Infarction: Yes (X 2) Past Surgical History Abdominal Surgery: Yes (gastric bypass) Cardiac Surgery: Yes (15 CATHS AND 4 STENTS PLACED.TRIPLE BYPASS.) Social History Alcohol Use: Yes Tobacco Use: No Substance Use: No Allergies-Medications (Allergen,Severity, Reaction): Coded Allergies: Keflex (Verified Allergy, Severe, EDEMA THROAT, 08/22/16) Mevacor (Unverified Allergy, Severe, 08/22/16) Reported Meds & Prescriptions Reported Meds & Active Scripts Active Keppra (Levetiracetam) 500 Mg Tab 1,000 Mg PO Q12HR 30 Days Norvasc (Amlodipine Besylate) 5 Mg Tab 2.5 Mg PO DAILY 30 Days Gabapentin 600 Mg Tab 600 Mg PO TID Reported Omeprazole 40 Mg Cap 40 Mg PO DAILY Xanax (Alprazolam) 0.25 Mg Tab 0.25 Mg PO Q8H PRN Lipitor (Atorvastatin Calcium) 40 Mg Tab 40 Mg PO HS [place] (Hydrocodone-Acetaminophen) 7.5-325 mg Tab 1 Tab PO Q6H PRN Toprol XL (Metoprolol Succinate) 50 Mg Tab 50 Mg PO DAILY Singulair (Montelukast Sodium) 10 Mg Tab 10 Mg PO HS Review of Systems Except as stated in HPI: all other systems reviewed are Neg Physical Exam Narrative GENERAL:Well appearing, no acute distress SKIN: Focused skin assessment warm and dry. HEAD: Atraumatic. Normocephalic. EYES: Pupils equal and round. No injection or drainage. ENT: Moist mucous membranes NECK: Trachea midline. CARDIOVASCULAR: Regular rate and rhythm. No murmur appreciated. RESPIRATORY: Clear to auscultation. Breath sounds equal bilaterally. GASTROINTESTINAL: Abdomen soft, non-tender, nondistended. MUSCULOSKELETAL: No obvious deformities. NEUROLOGICAL: Awake and alert. No obvious cranial nerve deficits. No dysarthria or aphasia. Mild right upper extremity ataxia. Able to lift the right leg off the bed, able to bend at the left leg but unable to lift off the bed. PSYCHIATRIC: Appropriate mood and affect; insight and judgment normal. Data Data Last Documented VS Vital Signs Date Time Temp Pulse Resp B/P Pulse Ox O2 Delivery O2 Flow Rate FiO2 08/30/16 14:35 97 Room Air 08/30/16 14:30 98.1 56 18 145/77 Orders Complete Blood Count With Diff (08/30/16 14:50) Comprehensive Metabolic Panel (08/30/16 14:50) Ct Brain W/O Iv Contrast(Rout) (08/30/16 14:50) Blood Glucose (08/30/16 14:50) Ecg Monitoring (08/30/16 14:50) Iv Access Insert/Monitor (08/30/16 14:50) Oximetry (08/30/16 14:50) Sodium Chloride 0.9% Flush (Ns Flush) (08/30/16 15:00) Admit Order (Ed Use Only) (08/30/16 16:23) Labs Laboratory Tests Test 08/30/16 14:50 White Blood Count 7.5 TH/MM3 Red Blood Count 5.26 MIL/MM3 Hemoglobin 13.6 GM/DL Hematocrit 40.2 % Mean Corpuscular Volume 76.3 FL Mean Corpuscular Hemoglobin 25.9 PG Mean Corpuscular Hemoglobin 34.0 % Concent Red Cell Distribution Width 16.3 % Platelet Count 160 TH/MM3 Mean Platelet Volume 9.2 FL Neutrophils (%) (Auto) 66.4 % Lymphocytes (%) (Auto) 18.8 % Monocytes (%) (Auto) 11.9 % Eosinophils (%) (Auto) 1.9 % Basophils (%) (Auto) 1.0 % Neutrophils # (Auto) 5.0 TH/MM3 Lymphocytes # (Auto) 1.4 TH/MM3 Monocytes # (Auto) 0.9 TH/MM3 Eosinophils # (Auto) 0.1 TH/MM3 Basophils # (Auto) 0.1 TH/MM3 CBC Comment DIFF FINAL Differential Comment Sodium Level 141 MEQ/L Potassium Level 4.0 MEQ/L Chloride Level 107 MEQ/L Carbon Dioxide Level 26.7 MEQ/L Anion Gap 7 MEQ/L Blood Urea Nitrogen 13 MG/DL Creatinine 1.18 MG/DL Estimat Glomerular Filtration 61 ML/MIN Rate Random Glucose 77 MG/DL Calcium Level 8.6 MG/DL Total Bilirubin 0.3 MG/DL Aspartate Amino Transf 28 U/L (AST/SGOT) Alanine Aminotransferase 53 U/L (ALT/SGPT) Alkaline Phosphatase 72 U/L Total Protein 6.9 GM/DL Albumin 3.6 GM/DL MDM Medical Decision Making Medical Screen Exam Complete: Yes Emergency Medical Condition: Yes Interpretation(s) Afebrile, no tachycardia No leukocytosis Electrolytes are reassuring Last [address] 08/30/16 1450 Signed Impressions: Service Date/Time: Tuesday, August 30, 2016 15:30 - CONCLUSION: 1. Chronic changes with severe periventricular small vessel ischemic demyelination, watershed area of encephalomalacia in the right temporoparietal occipital region and lacunar type infarcts in the inferior aspect of the left basal ganglia and left external capsule. 2. No acute intracranial process. Peterson Doherty MD Differential Diagnosis Intracranial hemorrhage, hydrocephalus, stroke, seizure, electrolyte abnormality Narrative Course This is a 66-year-old male who has a suspected history hydrocephalus this was to get a shunt put in by Dr. Trejo later this week who presents to the emergency department with increasing gait instability. Patient has some ataxia on exam. He has a reassuring head CT. Dr. Trejo came to see him in the emergency department. He is going to move his surgery up to September 03. He recommended hospitalization until then given his fall risk. Patient was admitted to Dr. Chavez. His was very concerned about him but the patient did not want to stay in the hospital after much thought, and decided to leave. Patient is able to make his own decisions and I don't think I can keep him against his will. Patient will be discharged home and can follow-up with Dr. Trejo on Friday. Diagnosis Primary Impression: Gait instability Patient Instructions: General Instructions Additional Instructions: Follow-up with Dr. Trejo on September 03 for CONSTRUCTION TECHNOLOGY INSTRUCTOR shunt placement. Med/Other Pt SpecificInfo: No Change to Meds Disposition: 01 DISCHARGE HOME Condition: Stable Jael Martinez MD Aug 30, 2016 15:12
[2016-08-30 15:34] LABS: BASOPHIL # 0.1 TH/MM3 (0-0.2); EOSINOPHIL # 0.1 TH/MM3 (0-0.4); EOSINOPHIL % 1.9 % (0.0-4.0); HEMATOCRIT 40.2 % (39.0-51.0); HEMO FLAGS DIFF FINAL; LYMPH % 18.8 % (9.0-44.0); LYMPHOCYTE # 1.4 TH/MM3 (1.0-4.8); MEAN CELL VOLUME 76.3 FL (80.0-100.0); MEAN CORPUSCULAR HEMOGLOBIN 25.9 PG (27.0-34.0); MONO % 11.9 % (0.0-8.0); NEUT % 66.4 % (16.0-70.0); PLATELET COUNT 160 TH/MM3 (150-450); RED BLOOD COUNT 5.26 MIL/MM3 (4.50-5.90); RED CELL DISTRIBUTION WIDTH 16.3 % (11.6-17.2); WHITE BLOOD COUNT 7.5 TH/MM3 (4.0-11.0)
--- NOTE | 2016-08-30 15:52 | RADRPT ---
EXAM DATE/TIME: 08/30/2016 15:30 [facility] COMPARISON: CT BRAIN W/O CONTRAST, June 01, 2016, 15:44. INDICATIONS : Brought in by [facility] for leg weakness since this morning.Dizziness. RADIATION DOSE: 56.35 CTDIvol (mGy) MEDICAL HISTORY : Cardiovascular disease. Hypertension. Chronic obstructive pulmonary disease. SURGICAL HISTORY : Gastric bypass. 3 way bypass, 15 caths, 4 stents. ENCOUNTER: Initial ACUITY: 1 day PAIN SCALE: 0/10 LOCATION: Bilateral lower extremity. TECHNIQUE: Multiple contiguous axial images were obtained of the head. Using automated exposure control and adj ustment of the mA and/or kV according to patient size, radiation dose was kept as low as reasonably a chievable to obtain optimal diagnostic quality images. FINDINGS: CEREBRUM: The ventricles are normal for age. Severe periventricular areas of diminished attenuation are charact eristic of advanced small vessel ischemic demyelination. Old lacunar type infarcts are identified in the inferior aspect of the left basal ganglia as well as the left external capsule. Stable area of en cephalomalacia in the right temporal parieto-occipital region. POSTERIOR FOSSA: The cerebellum and brainstem are intact. The 4th ventricle is midline. The cerebellopontine angle i s unremarkable. EXTRACRANIAL: The visualized portion of the orbits is intact. SKULL: Old craniotomy site in the right posterior parietal region. CONCLUSION: 1. Chronic changes with severe periventricular small vessel ischemic demyelination, watershed area of encephalomalacia in the right temporoparietal occipital region and lacunar type infarcts in the infe rior aspect of the left basal ganglia and left external capsule. 2. No acute intracranial process. Peterson Doherty MD on August 30, 2016 at 15:42 Board Certified Radiologist. This report was verified electronically.
[2016-08-30 16:22] LABS: ALT (GPT) 53 U/L (12-78); ANION GAP 7 MEQ/L (5-15); AST (GOT) 28 U/L (15-37); BICARBONATE 26.7 MEQ/L (21.0-32.0); BLOOD UREA NITROGEN 13 MG/DL (7-18); CHLORIDE 107 MEQ/L (98-107); GLOMERULAR FILTRATION RATE 61 ML/MIN (>89); SODIUM (NA) 141 MEQ/L (136-145)
[2016-08-30 16:24] LABS: ALKALINE PHOSPHATASE 72 U/L (45-117); TOTAL BILIRUBIN ADULT 0.3 MG/DL (0.2-1.0)
[2016-08-30] MEDS ORDERED: ONDANSETRON HCL 4 MG/2 ML VIAL IVP PRN (16:30)
[2016-08-30] MEDS ORDERED: HEPARIN SODIUM - SQ 10,000 UNITS/ML VIAL SQ SCH (16:30)
[2016-08-30] MEDS ORDERED: ACETAMINOPHEN 325 MG TAB PO PRN (16:30)
[2016-08-30] MEDS ORDERED: MAGNESIUM HYDROXIDE SUSP 30 ML CUP PO PRN (16:30)
[2016-08-30] MEDS ORDERED: NALOXONE HCL 0.4 MG/ML AMP IV PRN (16:30)
[2016-08-30] MEDS ORDERED: SODIUM CHLORIDE 0.9% FLUSH 10 ML FLUSH IV FLUSH PRN (16:30)
--- NOTE | 2016-08-30 17:17 | PD.CONS ---
HPI Service NeuroSurgery Consult Requested By dr Martinez Reason for Consult Hydrocephalus Primary Care Physician Daniel Vazquez M.D. History of Present Illness Mr Gtz is a 66-year-old male with a history of intracranial hemorrhage, status post craniotomy and evacuation, who presents to [facility] emergency department with increasing unsteadiness of his gait, lightheadedness, generalized fatigue and feeling like he is going to pass out. He has been seen as an outpatient in my office and underwent a CT of the brain which show hydrocephalus. His says that he's been having to grab onto prieto to walk. I have recommended placement of a ventriculoperitoneal shunt. Today they were at a yard sale and she had help him because she thought he was going to fall and she had guide him into the car. He denies any fevers or chills and denies any chest pain or shortness of breath. He was scheduled to undergo a ventriculoperitoneal shunt next week. His is concerned that his symptoms are worsening.CT of the brain was done. Neurosurgical consultation was requested. Review of Systems Constitutional: DENIES: Diaphoretic episodes, Fatigue, Fever, Weight gain, Weight loss, Chills, Dizziness, Change in appetite, Night Sweats Endocrine: DENIES: Heat/cold intolerance, Polydipsia, Polyuria, Polyphagia Ears, nose, mouth, throat: DENIES: Tinnitus, Hearing loss, Vertigo, Nasal discharge, Oral lesions, Throat pain, Hoarseness, Ear Pain, Running Nose, Epistaxis, Sinus Pain, Toothache, Odynophagia Respiratory: DENIES: Apneas, Cough, Snoring, Wheezing, Hemoptysis, Sputum production, Shortness of breath Cardiovascular: DENIES: Chest pain, Palpitations, Syncope, Dyspnea on Exertion , PND, Lower Extremity Edema, Orthopnea, Claudication Gastrointestinal: DENIES: Abdominal pain, Black stools, Bloody stools, Constipation, Diarrhea, Nausea, Vomiting, Difficulty Swallowing, Anorexia Genitourinary: DENIES: Sexual dysfunction, Urinary frequency, Urinary incontinence, Urgency, Hematuria, Dysuria, Nocturia, Penile Discharge, Testicular Pain, Testicular Swelling Musculoskeletal: DENIES: Joint pain, Muscle aches, Stiffness, Joint Swelling, Back pain, Neck pain Integumentary: DENIES: Abnormal pigmentation, Nail changes, Pruritus, Rash Hematologic/lymphatic: DENIES: Bruising, Lymphadenopathy Immunologic/allergic: DENIES: Eczema, Urticaria Neurologic: COMPLAINS OF: Abnormal gait, DENIES: Headache, Localized weakness , Paresthesias, Seizures, Speech Problems, Tremor, Poor Balance Psychiatric: DENIES: Anxiety, Confusion, Mood changes, Depression, Hallucinations, Agitation, Suicidal Ideation, Homicidal Ideation, Delusions Past Family Social History Allergies: Coded Allergies: Keflex (Verified Allergy, Severe, EDEMA THROAT, 08/22/16) Mevacor (Unverified Allergy, Severe, 08/22/16) Past Medical History Asthma: Yes Anxiety: Yes Cardiovascular Problems: Yes (PR, STENTS, BY PASS SURGERY) High Cholesterol: Yes COPD: Yes Cerebrovascular Accident: Yes (2003 AND 2004) Diabetes: Yes (borderline, not on antihyperglycemics) Endocrine: Yes Hypertension: Yes Psychiatric: Yes Myocardial Infarction: Yes (X 2) Past Surgical History Abdominal Surgery: Yes (gastric bypass) Cardiac Surgery: Yes (15 CATHS AND 4 STENTS PLACED.TRIPLE BYPASS.) Craniotomy Reported Medications Omeprazole 40 Mg Cap 40 Mg PO DAILY Xanax (Alprazolam) 0.25 Mg Tab 0.25 Mg PO Q8H PRN Lipitor (Atorvastatin Calcium) 40 Mg Tab 40 Mg PO HS [place] (Hydrocodone-Acetaminophen) 7.5-325 mg Tab 1 Tab PO Q6H PRN Toprol XL (Metoprolol Succinate) 50 Mg Tab 50 Mg PO DAILY Singulair (Montelukast Sodium) 10 Mg Tab 10 Mg PO HS Active Ordered Medications Current Medications IV Flush (NS Flush) 2 ml UNSCH PRN IV FLUSH FLUSH AFTER USING IV ACCESS; Start 08/30/16 at 15:00; Stop 08/30/16 at 16:38; Status DC Sodium Chloride (NS Flush) 2 ml UNSCH PRN IV FLUSH FLUSH AFTER USING IV ACCESS ; Start 08/30/16 at 16:30; Stop 08/30/16 at 16:39; Status DC Sodium Chloride (NS Flush) 2 ml BID IV FLUSH ; Start 08/30/16 at 21:00; Stop 08/30 at 21:00; Status DC Acetaminophen (Tylenol) 650 mg Q4H PRN PO TEMP > 100.4; Start 08/30/16 at 16:30 ; Stop 08/30/16 at 16:39; Status DC Ondansetron HCl (Zofran Inj) 4 mg Q6H PRN IVP NAUSEA OR VOMITING; Start at 16:30; Stop 08/30/16 at 16:39; Status DC Heparin Sodium (Porcine) (Heparin Inj) 5,000 units Q8H SQ ; Start 08/30/16 at 16: 30; Stop 08/30/16 at 16:38; Status DC Naloxone HCl (Narcan Inj) 0.4 mg UNSCH PRN IV SEE LABEL COMMENTS; Start at 16:30; Stop 08/30/16 at 16:38; Status DC Senna/Docusate Sodium (Clari-Colace) 1 tab BID PO ; Start 08/30/16 at 21:00; Stop 08/30/16 at 21:00; Status DC Magnesium Hydroxide (Milk Of Magnesia Liq) 30 ml Q12H PRN PO MILD - MODERATE CONSTIPATION; Start 08/30/16 at 16:30; Stop 08/30/16 at 16:38; Status DC Family History Non contributory Social History Alcohol Use: Yes Tobacco Use: No Substance Use: No Physical Exam Vital Signs Vital Signs Date Time Temp Pulse Resp B/P Pulse Ox O2 Delivery O2 Flow Rate FiO2 08/30/16 14:35 97 Room Air 08/30/16 14:30 98.1 56 18 145/77 96 Physical Exam Mr Gtz is alert, awake and oriented to time, place and person. Speech is fluent. Cranial nerve examination: pupils to be equal, round and reactive to light. Extra-ocular movements are intact. Facial motor and sensory function are normal and symmetrical. Gross hearing appears intact. Sternocleidomastoid and trapezius muscles are symmetrical. Other cranial nerves are intact. Neck is soft and supple with a good range of motion without pain. Muscle strength is normal in all muscle groups of both upper and lower extremities. Sensory examination is intact to light touch and pin prick in both the upper and lower extremities. Deep tendon reflexes are symmetrical in both upper and lower extremities. There is a bilateral plantar flexion response. Cerebellar examination is unremarkable, without deficits. Laboratory Laboratory Tests Test 08/30/16 14:50 White Blood Count 7.5 Red Blood Count 5.26 Hemoglobin 13.6 Hematocrit 40.2 Mean Corpuscular Volume 76.3 Mean Corpuscular Hemoglobin 25.9 Mean Corpuscular Hemoglobin 34.0 Concent Red Cell Distribution Width 16.3 Platelet Count 160 Mean Platelet Volume 9.2 Neutrophils (%) (Auto) 66.4 Lymphocytes (%) (Auto) 18.8 Monocytes (%) (Auto) 11.9 Eosinophils (%) (Auto) 1.9 Basophils (%) (Auto) 1.0 Neutrophils # (Auto) 5.0 Lymphocytes # (Auto) 1.4 Monocytes # (Auto) 0.9 Eosinophils # (Auto) 0.1 Basophils # (Auto) 0.1 CBC Comment DIFF FINAL Differential Comment Sodium Level 141 Potassium Level 4.0 Chloride Level 107 Carbon Dioxide Level 26.7 Anion Gap 7 Blood Urea Nitrogen 13 Creatinine 1.18 Estimat Glomerular Filtration 61 Rate Random Glucose 77 Calcium Level 8.6 Total Bilirubin 0.3 Aspartate Amino Transf 28 (AST/SGOT) Alanine Aminotransferase 53 (ALT/SGPT) Alkaline Phosphatase 72 Total Protein 6.9 Albumin 3.6 Result Diagram: 08/30/16 1450 08/30/16 1450 Imaging Last Impressions Head CT 08/30/16 1450 Signed Impressions: Service Date/Time: Tuesday, August 30, 2016 15:30 - CONCLUSION: 1. Chronic changes with severe periventricular small vessel ischemic demyelination, watershed area of encephalomalacia in the right temporoparietal occipital region and lacunar type infarcts in the inferior aspect of the left basal ganglia and left external capsule. 2. No acute intracranial process. Peterson Doherty MD Attending Statement I have reviewed his clinical and radiological findings. The patient has been unstable, worsening. His is very concerned about his worsening gait. In my opinion he is not safe at home and I recommend to keep him in observation. Neuro checks in a serial fashion. I reviewed his CT of the brain. I recommend consideration for placement of a ventriculoperitoneal shunt. We have discussed the details including the [id number] details of the surgical procedure, its indications, alternatives, risks, and potential complications. Risks and potential complications include, but are not limited to, infection, blood loss, CSF leak, partial or complete loss of sight in one or both eyes, paresis, paralysis, permanent pain or difficulty swallowing, loss of bowel or bladder function, complications from anesthesia, blood clot, stroke, myocardial infarction, or even . Pulmonary. aggressive pulmonary toilette, nasotracheal suction, and breathing treatments with nebulizers. PT and OT evaluation Nutrition. oral diet Renal. monitor closely urine output, BUN and creatinine Endocrine. Monitor serial Acu checks and SSI as needed in detail ID monitor for signs of infection Protonix for stress ulcer prophylaxis Francisco hose and SCD's for DVT prophylaxis Maxx Trejo MD Aug 30, 2016 17:17
[2016-08-30] MEDS ORDERED: DOCUSATE SODIUM 50 MG/SENNA 8.6 MG TAB PO SCH (21:00)
[2016-08-30] MEDS ORDERED: SODIUM CHLORIDE 0.9% FLUSH 10 ML FLUSH IV FLUSH SCH (21:00)
== END 2016-08-30 16:40 | disposition home or self-care (01) ==
LOC: NEPC 14:21 → NEDA 16:24 → UNDOADMOB 16:24
DX: R27.0 Ataxia, unspecified (principal); R42 Dizziness and giddiness; I10 Essential (primary) hypertension; R26.81 Unsteadiness on feet; J44.9 Chronic obstructive pulmonary disease, unspecified; E78.00 Pure hypercholesterolemia, unspecified; I25.2 Old myocardial infarction; Z98.84 Bariatric surgery status
CPT/HCPCS: 70450; 80053; 85025

== ENCOUNTER 2016-09-02 11:34 | Inpatient (IN) | payer OTHER, MEDICARE ==
[~2016-09-02] VITALS: Ht 177.8 cm; Wt 110.8 kg
[~2016-09-02 11:34] MED LIST changes: -ACET325T PO; +ALPR.25 PO; -DOCU1CAP39 PO; +HYDR-3288 PO; +LIPI40TA PO; +MONT10TA2 PO; -PANT40TA3 PO; +POTA10CA PO; +PROZ20CA11 PO; +TOPR50TA PO
[2016-09-04] MEDS ORDERED: SODIUM CHLOR 0.9% 1000 ML INJ 1,000 ML IV SCH (11:00)
[2016-09-04 11:01] VITALS: BP 128/69; PULSE 45; RESP 16; TEMP 97.9; O2SAT 97
[2016-09-04] MEDS ORDERED: POVIDONE IODINE 5% (ANTISEPSIS KIT) 4 APPLICATIONS EACH NARE PRN (11:15)
[2016-09-04] MEDS ORDERED: INSULIN HUMAN REGULAR 1,000 UNITS/10 ML VIAL SQ PRN (11:15)
[2016-09-04] MEDS ORDERED: CHLORHEXIDINE GLUCONATE 2 % 1 PACK (2 CLOTHS) TOPICAL PRN (11:15)
[2016-09-04] MEDS ORDERED: METOPROLOL TARTRATE 25 MG TAB PO PRN (11:15)
[2016-09-04] MEDS ORDERED: VANCOMYCIN HCL 1000 MG ON-CALL/NS 250 ML IV SCH ×2 (11:15)
[2016-09-04] MEDS ORDERED: SODIUM CHLORID 0.9% 500 ML IV PRN (11:15)
[2016-09-04] MEDS ORDERED: LACTATED RINGER'S 1000 ML IV PRN (11:15)
[2016-09-04] MEDS ORDERED: THROMBIN (TOPICAL) 5,000 UNIT VIAL ONE (11:33)
[2016-09-04] MEDS ORDERED: GELFOAM SIZE 100 ONE (11:33)
[2016-09-04] MEDS ORDERED: BACITRACIN TOP OINT 15 GM TUBE ONE (11:34)
[2016-09-04] MEDS ORDERED: GENTAMICIN SULFATE 80 MG/2 ML VIAL ONE (11:34)
[2016-09-04] MEDS ORDERED: FAMOTIDINE 20 MG/2 ML VIAL ONE (11:55)
[2016-09-04] MEDS ORDERED: ARTIFICIAL TEARS OPTH OINT 3.5 APPLIC/3.5 GM TUBO ONE (11:55)
[2016-09-04] MEDS ORDERED: fentaNYL CITRATE 250 MCG/5 ML AMP ONE (11:56)
[2016-09-04] MEDS ORDERED: MIDAZOLAM HCL 2 MG/2 ML VIAL ONE (11:56)
[2016-09-04] MEDS ORDERED: ACETAMINOPHEN 1000 MG/100 ML VIAL IV ONE (11:56)
[2016-09-04] MEDS ORDERED: PROPOFOL 200 MG/20 ML AMP IV ONE (12:00)
[2016-09-04] MEDS ORDERED: PHENYLEPH/NS 1000 MCG/10 ML SYR IV ONE (12:00)
[2016-09-04] MEDS ORDERED: ePHEDrine/NS 25 MG/5 ML SYR IV ONE (12:00)
[2016-09-04] MEDS ORDERED: NEOSTIGMINE 3 MG/3 ML SYR IV ONE (12:00)
[2016-09-04] MEDS ORDERED: LACTATED RINGER'S 1000 ML INJ 1,000 ML IV ONE (12:00)
[2016-09-04] MEDS ORDERED: ONDANSETRON HCL 4 MG/2 ML VIAL IV PUSH ONE (12:00)
[2016-09-04 12:09] LABS: BLOOD, URINE NEG (NEG); COMMENT (UR) CULT NOT INDICATED; CULTURE IF INDICATED CULT NOT INDICATED; GLUCOSE,URINE NEG (NEG); KETONE, URINE NEG (NEG); NITRITE,URINE NEG (NEG); PH, URINE 5.5 (5.0-8.5); URINE COLOR YELLOW (YELLW/STRAW)
[2016-09-04] MEDS ORDERED: ALPRAZolam 0.25 MG TAB PO PRN (12:45)
[2016-09-04] MEDS ORDERED: ACETAMINOPHEN 325 MG TAB PO PRN (12:45)
[2016-09-04] MEDS ORDERED: MORPHINE SULFATE 4 MG/ML INJ IV PUSH PRN ×2 (12:45)
[2016-09-04] MEDS ORDERED: ACETAMINOPHEN/HYDROcodone 325 MG/7.5 MG TAB PO PRN (12:45)
[2016-09-04] MEDS ORDERED: ACETAMINOPHEN/HYDROcodone 325 MG/10 MG TAB PO PRN ×2 (12:45)
[2016-09-04] MEDS ORDERED: SODIUM CHLORIDE 0.9% FLUSH 5 ML FLUSH IVF PRN (12:45)
[2016-09-04] MEDS ORDERED: ceFAZolin 2 GM PREMIX 50 ML IV SCH (12:45)
[2016-09-04] MEDS: GABAPENTIN 300 MG CAP PO SCH ×2 (13:00→18:15)
[2016-09-04] MEDS ORDERED: PILL SPLITTER OTHER PRN (13:15)
[2016-09-04] MEDS ORDERED: LIDOCAINE 1%/EPINEPHrine 1:100,000 SOLN 30 ML VIAL INFIL ONE (13:16)
[2016-09-04] MEDS ORDERED: DO NOT ADM ANY ANTICOAGULANT DRUGS PRN (14:43)
[2016-09-04] MEDS: NS + KCL 20 MEQ INJ 1,000 ML IV SCH ×2 (15:30→23:08)
--- NOTE | 2016-09-04 15:35 | PD.OP ---
Operative Report Date of Surgery: Sep 04, 2016 Preoperative Diagnosis: Hydrocephalus Postoperative Diagnosis: Hydrocephalus Procedure: Placement of ventriculoperitoneal shunt Anesthesia: general Surgeon: Maxx Trejo Litigator(s): Ruth Operation and Findings: INTRAOPERATIVE FINDINGS:~ Clear cerebrospinal fluid with an opening pressure of 180 mm of water. INDICATIONS FOR PROCEDURE: mR Patel IS A 66 year old Male with history of PRIOR INTRACEREBRAL HEMORRHAGE AND developed post hemorrhagioc hydrocephalus. He presented with symptoms of elevated intracranial pressure. His condition was getting progressively worse. A ventriculo peritoneal shunt was indicated The [id number] details of the procedure, its indications, alternatives, risks , and potential complications of the surgery were fully discussed with the patient and her . They fully understood. All their questions were answered. No guarantees were given. They voiced requesting the surgery and signed informed consent.They were offered the alternative of continuing nonsurgical treatment. DETAILS OF THE SURGICAL PROCEDURE: After the induction of general anesthesia, endotracheal intubation was performed. A Lopez catheter, bilateral BARBARA hose and sequential compression devices were placed and kept throughout the procedure. The patient was positioned supine on a 30-80 table with the head over a gel doughnut. All pressure points were carefully padded with eggcrate mattress. The right frontotemporal parietal area was shaved prepped and draped in the usual sterile fashion, as well as the neck, chest and abdomen. A small incision was made in the patient's right upper quadrant with a #10 blade and the dissection was carried out through the subcutaneous tissue and Earle's fascia. The rectus sheath was carefully opened with Metzenbaum scissors and the rectus muscles were split along its fibers. The posterior rectus sheath was elevated and carefully opened. The peritoneum was elevated with mosquitoes and opened in the standard fashion. The peritoneal cavity was visualized and exposed. A pursestring suture was placed around the peritoneal opening. Using a tunneler a subcutaneous tunnel was created connecting the abdominal incision with the planned head incision. A small incision was made in the right frontal area and a self-retaining retractor was placed in the incision. An entry point for the catheter was selected 90 mm posterior to the supraorbital rim and 25 mm lateral to the midline. A Midas Eddi was used to create the len hole. The dura was coagulated with the bipolar in a cruciform fashion. A peritoneal catheter was placed in the subcutaneous tunnel previously created and a pocket was created underneath the galea for placement of the valve. A Pay4later programmable valve has calibrated at a pressure of 120 mmHg and flushed according to the web communications specialist's instructions. The valve was secured to the proximal end of the peritoneal catheter using a 2-0 silk. Then, a ventricular catheter was advanced into the ventricular system. A good flow of cerebrospinal fluid was obtained.~ The catheter was connected to the valve and the connection secured with a 2-0 silk. Cerebrospinal fluid was noted to drip through the distal end of the peritoneal catheter. The peritoneal catheter was placed in the peritoneal cavity under direct visualization. The pursestring suture was carefully adjusted with special care not to strangulate the catheter. The rectus sheath was closed using interrupted 2-0 Vicryl suture. The Earle's fascia was approximated with 3-0 Vicryl, and the subcutaneous with 3-0 Vicryl. The skin was closed with running subcuticular 4-0 Vicryl in the abdomen. The skin incision was closed using interrupted 3-0 Vicryl for the galea and kathie to the skin. At the end of the procedure, the sponge, needle and instrument counts were all correct. The estimated blood was less than 50 cc. No blood transfusion was given. No intraoperative complications occurred. The patient received preoperative prophylactic antibiotics. The patient was then extubated and transferred to the recovery room in stable condition. Maxx Trejo MD Sep 04, 2016 15:35
[2016-09-04 18:16] LABS: CSF LYMPHOCYTES 91 %; CSF MONOCYTES 2 %; CSF NEUTROPHILS 7 %; SUPERNATE COLOR TUBE #1 CLEAR (CLEAR); WBC TUBE #1 120 /MM3 (0-10)
[2016-09-04 20:00] VITALS: BP 127/59; PULSE 52; RESP 18; TEMP 96.9; O2SAT 95
[2016-09-04] MEDS: SODIUM CHLORIDE 0.9% FLUSH 5 ML FLUSH IVF SCH (20:08)
[2016-09-04] MEDS ORDERED: ATORVASTATIN 40 MG TAB PO SCH (21:00)
[2016-09-04] MEDS ORDERED: MONTELUKAST SODIUM 10 MG TAB PO SCH (21:00)
[2016-09-04] MEDS: METOPROLOL SUCCINATE 25 MG EXTENDED RELEASE TAB PO SCH (21:52)
[2016-09-04] MEDS: levETIRAcetam 500 MG TAB PO SCH (21:53)
[2016-09-04] MEDS: VANCOMYCIN INJ 1,000 MG in SODIUM CHLOR 0.9% 250 ML INJ 250 ML IV SCH (23:01)
[2016-09-05] VITALS: BP 123/61; PULSE 54; RESP 20; TEMP 97.1; O2SAT 93
[2016-09-05 04:00] VITALS: BP 172/81; PULSE 49; RESP 18; TEMP 98.7; O2SAT 94
[2016-09-05 08:07] VITALS: BP 150/74; PULSE 57; RESP 20; TEMP 96.7
[2016-09-05] MEDS: SODIUM CHLORIDE 0.9% FLUSH 5 ML FLUSH IVF SCH (08:32)
[2016-09-05] MEDS: GABAPENTIN 300 MG CAP PO SCH ×2 (08:33→13:27)
[2016-09-05] MEDS: levETIRAcetam 500 MG TAB PO SCH (08:34)
[2016-09-05] MEDS: METOPROLOL SUCCINATE 25 MG EXTENDED RELEASE TAB PO SCH (08:35)
[2016-09-05] MEDS ORDERED: PANTOPRAZOLE SODIUM 40 MG VIAL IVP SCH (09:00)
[2016-09-05] MEDS ORDERED: FLUoxetine HCL 20 MG CAP PO SCH (09:00)
[2016-09-05] MEDS ORDERED: amLODIPine BESYLATE 5 MG TAB PO SCH (09:00)
[2016-09-05] MEDS ORDERED: POTASSIUM CHLORIDE 10 MEQ CAP PO SCH (09:00)
[2016-09-05] MEDS ORDERED: NON-FORMULARY DRUG (Omeprazole 40 MG) PO SCH (09:00)
[2016-09-05] MEDS: NS + KCL 20 MEQ INJ 1,000 ML IV SCH (09:01)
--- NOTE | 2016-09-05 09:38 | RADRPT ---
EXAM DATE/TIME: 09/05/2016 09:25 [facility] COMPARISON: MRI BRAIN W & W/O CONTRAST, May 23, 2016, 15:47. CT BRAIN W/O CONTRAST, August 30, 2016, 15:30. INDICATIONS : Post operation, SYSTEMS SECURITY CONSULTANT shunt placement. RADIATION DOSE: 69.18 CTDIvol (mGy) MEDICAL HISTORY : Cardiovascular disease. Hypertension. Diabetes mellitus type 2. SURGICAL HISTORY : Shunt placement. ENCOUNTER: Subsequent ACUITY: 1 day PAIN SCALE: 2/10 LOCATION: cranial TECHNIQUE: Multiple contiguous axial images were obtained of the head. Using automated exposure control and adj ustment of the mA and/or kV according to patient size, radiation dose was kept as low as reasonably a chievable to obtain optimal diagnostic quality images. FINDINGS: The examination demonstrates a ventriculostomy shunt entering from a right frontal approach. The cath eter is in good position. The ventricles are normal in size. There is a trace amount of hemorrhage se en in the posterior aspect of the right lateral ventricle. There are advanced microvascular ischemic demyelinative change changes. The examination does demonstrate scattered areas of decreased attenuation in the right occipital alphonse ex, the watershed distribution posteriorly on the right, the left caudate nucleus and left basal gang marilee. Findings are consistent with areas of cortical infarct. Patient is post right parietal craniotomy. CONCLUSION: 1. Ventriculostomy shunt in good position. 2. Scattered areas of decreased attenuation consistent with old or subacute areas of cortical infarct there 3. Trace amount of ventricular hemorrhage seen in the posterior horn of the right lateral ventricle. 4. Post craniotomy changes suggesting evacuation of the previous area of hemorrhage within the right occipital cortex. 5. Advanced microvascular ischemic demyelinative change changes Sudhir Kirby MD on September 05, 2016 at 9:34 Board Certified Radiologist. This report was verified electronically.
[2016-09-05] MEDS: VANCOMYCIN INJ 1,000 MG in SODIUM CHLOR 0.9% 250 ML INJ 250 ML IV SCH (10:07)
--- NOTE | 2016-09-05 10:29 | HHI.DCPOC ---
Discharge Care Plan Diagnosis: (1) S/P ventriculoperitoneal shunt Goals to Promote Your Health * To prevent worsening of your condition and complications * To maintain your health at the optimal level Directions to Meet Your Goals Take your medications as prescribed Follow your dietary instruction Follow activity as directed Keep your appointments as scheduled Take your immunizations and boosters as scheduled If your symptoms worsen call your PCP, if no PCP go to Urgent Care Center or Emergency Room Smoking is Dangerous to Your Health. Avoid second hand smoke Call the 24-hour hour crisis hotline for domestic abuse at Areli Michel Sep 05, 2016 10:29
--- NOTE | 2016-09-05 10:30 | HHI.FF ---
Face to Face Verification Diagnosis: (1) Hydrocephalus (2) Gait instability Physical Therapy Order: Improve ambulation, Strength and gait training Home Health Nursing Order: Medical education Signs/symptoms of disease process Wound care and dressing changes Nursing assessment with vital signs I have seen patient Terry Gtz on 09/05/16. My clinical findings support the need for the requested home health care services because: Ltd mobility - disease progression Deconditioned w/ increased weakness High risk of falls I certify that my clinical findings support that this patient is homebound because: Post-op weakness Unsteady gait/balance Areli Michel Sep 05, 2016 10:30
--- NOTE | 2016-09-05 10:31 | HHI.DS ---
Discharge Summary Admission Date Sep 04, 2016 at 10:23 Discharge Date: Sep 05, 2016 Admitting Diagnosis s/p CHEMICAL ENGINEER shunt (1) S/P ventriculoperitoneal shunt ICD Code: Z98.2 Significant Findings Laboratory Tests Test 09/04/16 14:00 CSF WBC (Tube 1) 120 /MM3 (0-10) CSF RBC (Tube 1) 2613 /MM3 (NONE) Imaging Last Impressions Head CT 09/05/16 0000 Signed Impressions: Service Date/Time: August 09:25 - CONCLUSION: 1. Ventriculostomy shunt in good position. 2. Scattered areas of decreased attenuation consistent with old or subacute areas of cortical infarct there 3. Trace amount of ventricular hemorrhage seen in the posterior horn of the right lateral ventricle. 4. Post craniotomy changes suggesting evacuation of the previous area of hemorrhage within the right occipital cortex. 5. Advanced microvascular ischemic demyelinative change changes Sudhir Kirby MD PE at Discharge Alert, awake, no apparent distress. Conversing. Wound clean and dry. CN: pupils equal, facial motor symmetric Motor: moving all four extremities symmetrically Hospital Course Mr. Gtz underwent placement of ventriculoperitoneal shunt. His surgery went well without complication. He underwent a follow up CT brain which was stable. He was discharged home on home health care in stable conditions. Pt Condition on Discharge: Stable Discharge Disposition: Disch w/ Home Health Serv Discharge Instructions DIET: Follow Instructions for: Heart Healthy Diet ACTIVITIES You can perform: Weight Bearing As Mel ADDITIONAL Activity Instructio: Avoid strenuous activities, avoid falls and head trauma. Use assistance when ambulating to avoid falling. Continued Medications: Alprazolam (Xanax) 0.25 Mg Tab 0.25 MG PO Q8H PRN ANXIETY Ref 0 TAB Amlodipine (Norvasc) 5 Mg Tab 2.5 MG PO DAILY HTN Days 30 TAB Atorvastatin (Lipitor) 40 Mg Tab 40 MG PO HS Cholesterol Management #30 Ref 0 TAB Fluoxetine (Prozac) 20 Mg Cap 20 MG PO DAILY #30 Ref 0 CAP Gabapentin (Gabapentin) 600 Mg Tab 600 MG PO TID #90 Ref 3 TAB Hydrocodone-Acetaminophen ([place]) 7.5-325 mg Tab 1 TAB PO Q6H PRN PAIN Ref 0 TAB Levetiracetam (Keppra) 500 Mg Tab 1000 MG PO Q12HR SZ Days 30 TAB Metoprolol Succinate ER 24 HR (Toprol XL) 50 Mg Tab 25 MG PO BID #30 Ref 0 TAB Montelukast (Singulair) 10 Mg Tab 10 MG PO HS #30 Ref 0 TAB Omeprazole (Omeprazole) 40 Mg Cap 40 MG PO DAILY #30 Ref 0 CAP Potassium Chloride ER (Potassium Chloride ER) 10 Meq Cap 10 MEQ PO DAILY Electrolyte Replacement #30 Ref 0 CAP Areli Michel Sep 05, 2016 10:31
[2016-09-05 12:38] VITALS: BP_SYST 121; BP_SYST 137; BP_DIAS 58; BP_DIAS 74; PULSE 105; PULSE 52; RESP 20; TEMP 96.8; TEMP 97.9; O2SAT 92; O2SAT 98
== END 2016-09-05 14:45 | disposition home health service (06) | DRG 33 ==
LOC: HSDI 09-04 10:23 → N05A 09-04 19:19
PROVIDERS: ADMIT Neurological Surgery; ATTEND Neurological Surgery
PROC: 00160J6 Bypass Cerebral Ventricle to Peritoneal Cavity with Synthetic Substitute, Open Approach (ICD-10-PCS; principal; 2016-09-04 12:08)
DX: G91.9 Hydrocephalus, unspecified (principal)
CPT/HCPCS: 70450; 81001; 82945; 84157; 87070; 87205; 89051; C9113; J0131; J1580; J2250; J2370; J2405; J2710; J3010; J3370; J3480; J7050; J7120

== ENCOUNTER 2016-10-23 17:43 | Emergency (ER) | payer OTHER ==
[2016-10-23 17:47] VITALS: BP 145/76; PULSE 62; RESP 16; TEMP 97.5; O2SAT 98
--- NOTE | 2016-10-23 18:03 | PD ---
Physical Exam Time Seen by Provider: 17:57 Narrative 66yo M, w/ hx of shunt, c/o hearing swishing sound in his head since last night. Just had shunt adjustment. Talked with Dr. Trejo and was going to do out patient CT scan shubnt series. Diastolic BP has been elevated and came to ER for evaluation. +near syncope. Patient seen in triage. VS reviewed. Patient awaiting bed placement. Data Data Last Documented VS Vital Signs Date Time Temp Pulse Resp B/P Pulse Ox O2 Delivery O2 Flow Rate FiO2 10/23/16 17:47 97.5 62 16 145/76 98 MDM Supervised Visit with YUE: Soheila Tidwell Oct 23, 2016 18:03
[2016-10-23 20:08] VITALS: BP 110/60; PULSE 73; RESP 16; O2SAT 94
--- NOTE | 2016-10-23 20:26 | PD ---
HPI Chief Complaint: Neuro Symptoms/ Deficits Time Seen by Provider: 20:05 Travel History International Travel<30 days: No Contact w/Intl Traveler<30days: No Traveled to known affect area: No History of Present Illness HPI 66-year-old male with history of recent intracranial hemorrhage status post SHOE ASSOCIATE shunt placement by Dr. Trejo, seizures currently on Keppra, presents to the ER today because he has been hearing water swishing in his right ear. He has been having dizziness episodes according to his and has a Holter monitor being ordered for him for further evaluation by his primary care physician and cardiology. He denies any chest pains, shortness of breath, fevers, headaches, vomiting, or other symptoms at this time. He had talked to Dr. Maya MARTINEZ and had been ordered for a CT shunt evaluation as an outpatient. However, his decided to bring him here for further evaluation now. Modifying Factors: None Associated Signs & Symptoms: Abnormal sounds in the right ear, SHOE ASSOCIATE shunt Risk Factors: None PFSH Past Medical History Hx Anticoagulant Therapy: Yes (ASA) Arthritis: Yes Asthma: Yes Anxiety: Yes Cancer: No Cardiovascular Problems: Yes (AL, STENTS, BY PASS SURGERY) High Cholesterol: Yes COPD: Yes Cerebrovascular Accident: Yes (2003 AND 2004) Diabetes: Yes (borderline, not on antihyperglycemics) Patient Takes Glucophage: No Diminished Hearing: Yes (CURRENTLY HAVING DIFFICULTY HEARING) Endocrine: Yes Gastrointestinal Disorders: Yes (BARRETTS SYNDROME) Genitourinary: No Headaches: Yes Hepatitis: No Hiatal Hernia: No Hypertension: Yes Immune Disorder: No Implanted Vascular Access Dvce: Yes Musculoskeletal: Yes Neurologic: Yes (MAY 2016 STROKE, L SIDE WEAKNESS) Psychiatric: Yes (PREVIOUS STROKE) Reproductive: No Respiratory: Yes (COPD) Myocardial Infarction: Yes (X 2) Thyroid Disease: No Past Surgical History Abdominal Surgery: Yes (gastric bypass) AICD: No Body Medical Devices: STENTS, STERNAL WIRES, SHUNT Cardiac Surgery: Yes (15 CATHS AND 4 STENTS PLACED.TRIPLE BYPASS.) Joint Replacement: No Neurologic Surgery: Yes (SHOE ASSOCIATE SHUNT PLACED 09/05/16, SURGERY FOR HEMM. STROKE ) Pacemaker: No Other Surgery: Yes Social History Alcohol Use: Yes Tobacco Use: No (5 PPD, QUIT AT AGE 41) Substance Use: No Allergies-Medications (Allergen,Severity, Reaction): Coded Allergies: Keflex (Verified Allergy, Severe, EDEMA THROAT, 10/23/16) Mevacor (Verified Allergy, Severe, 10/23/16) Zoloft (Verified Allergy, Severe, "VERY SEVERE OFF BALANCE AND DIARRHEA", 10/23/16) Uncoded Allergies: CLINORIL (Allergy, Unknown, 09/04/16) Reported Meds & Prescriptions Reported Meds & Active Scripts Active Gabapentin 600 Mg Tab 600 Mg PO TID Keppra (Levetiracetam) 500 Mg Tab 1,000 Mg PO Q12HR 30 Days Reported Nitroglycerin 5 Mg/Ml Inj Aspirin 81 (Aspirin) 81 Mg Tabdr 81 Mg PO DAILY Aricept (Donepezil HCl) 5 Mg Tablet PO HS Iron (Ferrous Sulfate) 325 Mg Cap 325 Mg PO DAILY Coq-10 (Coenzyme Q10 (Ubidecarenone)) 30 Mg Cap PO DAILY B-12 (Cyanocobalamin) 5,000 Mcg Subl 6,000 Mcg PO DAILY Calcium 500 +D (Calcium Carbonate-Cholecalciferol) 500-400 Mg-Unit Tab 1 Tab PO BID Prozac (Fluoxetine HCl) 20 Mg Cap 20 Mg PO DAILY Potassium Chloride ER (Potassium Chloride) 10 Meq Cap 10 Meq PO DAILY Xanax (Alprazolam) 0.25 Mg Tab 0.25 Mg PO Q8H PRN Lipitor (Atorvastatin Calcium) 40 Mg Tab 40 Mg PO HS [place] (Hydrocodone-Acetaminophen) 7.5-325 mg Tab 1 Tab PO Q6H PRN Singulair (Montelukast Sodium) 10 Mg Tab 10 Mg PO HS Omeprazole 40 Mg Cap 40 Mg PO DAILY Review of Systems Except as stated in HPI: all other systems reviewed are Neg Physical Exam Narrative GENERAL: Well-developed elderly white male patient currently in mild distress. Awake and oriented 3. SKIN: Focused skin assessment warm/dry. HEAD: Atraumatic. Normocephalic. EYES: Pupils equal and round. No scleral icterus. No injection or drainage. ENT: No nasal bleeding or discharge. Mucous membranes pink and moist. EARS: Bilateral pinnae and external canals appear within normal limits. Bilateral tympanic membranes without erythema, dullness or perforation. NECK: Trachea midline. No JVD. CARDIOVASCULAR: Regular rate and rhythm. No murmur appreciated. RESPIRATORY: No accessory muscle use. Clear to auscultation. Breath sounds equal bilaterally. GASTROINTESTINAL: Abdomen soft, non-tender, nondistended. Hepatic and splenic margins not palpable. MUSCULOSKELETAL: No obvious deformities. No clubbing. No cyanosis. No edema. NEUROLOGICAL: Awake and alert. No obvious cranial nerve deficits. Motor grossly within normal limits. Normal speech. PSYCHIATRIC: Appropriate mood and affect; insight and judgment normal. Data Data Last Documented VS Vital Signs Date Time Temp Pulse Resp B/P Pulse Ox O2 Delivery O2 Flow Rate FiO2 10/23/16 20:08 73 16 110/60 94 Room Air 10/23/16 17:[address] Brain W/O Iv Contrast(Rout) (10/23/16 19:58) Complete Blood Count With Diff (10/23/16 20:05) Comprehensive Metabolic Panel (10/23/16 20:05) Prothrombin Time / Inr (Pt) (10/23/16 20:06) Act Partial Throm Time (Ptt) (10/23/16 20:06) Labs Laboratory Tests Test 10/23/16 20:15 White Blood Count 5.5 TH/MM3 Red Blood Count 5.57 MIL/MM3 Hemoglobin 14.1 GM/DL Hematocrit 42.6 % Mean Corpuscular Volume 76.6 FL Mean Corpuscular Hemoglobin 25.3 PG Mean Corpuscular Hemoglobin 33.0 % Concent Red Cell Distribution Width 15.8 % Platelet Count 178 TH/MM3 Mean Platelet Volume 8.4 FL Neutrophils (%) (Auto) 56.8 % Lymphocytes (%) (Auto) 30.5 % Monocytes (%) (Auto) 9.1 % Eosinophils (%) (Auto) 2.5 % Basophils (%) (Auto) 1.1 % Neutrophils # (Auto) 3.1 TH/MM3 Lymphocytes # (Auto) 1.7 TH/MM3 Monocytes # (Auto) 0.5 TH/MM3 Eosinophils # (Auto) 0.1 TH/MM3 Basophils # (Auto) 0.1 TH/MM3 CBC Comment DIFF FINAL Differential Comment Prothrombin Time 11.4 SEC Prothromb Time International 1.0 RATIO Ratio Activated Partial 27.2 SEC Thromboplast Time Sodium Level 137 MEQ/L Potassium Level 3.9 MEQ/L Chloride Level 101 MEQ/L Carbon Dioxide Level 24.8 MEQ/L Anion Gap 11 MEQ/L Blood Urea Nitrogen 17 MG/DL Creatinine 1.35 MG/DL Estimat Glomerular Filtration 53 ML/MIN Rate Random Glucose 178 MG/DL Calcium Level 8.9 MG/DL Total Bilirubin 0.4 MG/DL Aspartate Amino Transf 48 U/L (AST/SGOT) Alanine Aminotransferase 66 U/L (ALT/SGPT) Alkaline Phosphatase 87 U/L Total Protein 7.2 GM/DL Albumin 3.7 GM/DL MDM Medical Decision Making Medical Screen Exam Complete: Yes Emergency Medical Condition: Yes Medical Record Reviewed: Yes Interpretation(s) Laboratory Tests Test 10/23/16 20:15 Mean Corpuscular Volume 76.6 FL (80.0-100.0) Mean Corpuscular Hemoglobin 25.3 PG (27.0-34.0) Monocytes (%) (Auto) 9.1 % (0.0-8.0) Creatinine 1.35 MG/DL (0.60-1.30) Estimat Glomerular Filtration 53 ML/MIN (>89) Rate Random Glucose 178 MG/DL (74-106) Aspartate Amino Transf 48 U/L (15-37) (AST/SGOT) Last [address] 10/23/161957 Signed Impressions: Service Date/Time: Sunday, October 23, 2016 20:28 - CONCLUSION: No acute findings in the brain. Ventriculostomy in good position. No evidence of intraventricular or extra-axial blood. Toni Kirkland MD Differential Diagnosis Tinnitus versus shunt malformation versus ICH Narrative Course Patient has no focal neurological findings and lab work did not indicate significant metabolic issues. CAT scan of the brain is negative for any signs of acute bleed or other acute processes. SHOE ASSOCIATE shunt appears to be in place with no signs of malformation. At this point, my plan would be to have the patient follow-up with Dr. Trejo and get outpatient studies per his direction. Return for any worsening in symptoms or new symptoms as needed. The plan has been discussed with patient and and they state understanding. Diagnosis Primary Impression: Tinnitus Disposition: DISCHARGE HOME Condition: Stable Zahra Mckeon MD Oct 23, 2016 20:26
[2016-10-23] MEDS ORDERED: CYAN1SUB PO (20:31)
[2016-10-23] MEDS ORDERED: ASPI-110 PO (20:31)
[2016-10-23] MEDS ORDERED: CALC1TAB12 PO (20:31)
[2016-10-23] MEDS ORDERED: ARIC5TAB2 PO (20:31)
[2016-10-23] MEDS ORDERED: FERR325C PO (20:31)
[2016-10-23] MEDS ORDERED: COQ-30CA2 PO (20:31)
[2016-10-23] MEDS ORDERED: NITR50VP (20:31)
--- NOTE | 2016-10-23 21:11 | RADRPT ---
EXAM DATE/TIME: 10/23/2016 20:28 [facility] COMPARISON: CT BRAIN W/O CONTRAST, September 05, 2016, 9:25. INDICATIONS : Dizziness and feels like fluid is swishing in his ears. RADIATION DOSE: 50.30 CTDIvol (mGy) MEDICAL HISTORY : Cerebrovascular disease. Myocardial infarction. Hypertension. SURGICAL HISTORY : METAL CAN INSPECTOR Shunt. ENCOUNTER: Initial ACUITY: 1 day PAIN SCALE: 0/10 LOCATION: cranial TECHNIQUE: Multiple contiguous axial images were obtained of the head. Using automated exposure control and adj ustment of the mA and/or kV according to patient size, radiation dose was kept as low as reasonably a chievable to obtain optimal diagnostic quality images. DICOM format image data is available electro nically for review and comparison. FINDINGS: CEREBRUM: Ventriculostomy shunt enters from a right frontal approach and the tip is projected within the 3rd ve ntricle, similar in location from prior examination. The ventricles are mildly dilated, similar to p rior exam. No intraventricular blood seen. Right parietal-occipital watershed infarction is similar in configuration to prior CT. Decreased attenuation in the supratentorial white matter characterist ic of ischemic change. Elongated lacunar infarct in the external capsule on the left side stable fro m prior. No acute findings. No extra-axial fluid or blood. POSTERIOR FOSSA: The cerebellum and brainstem are intact. The 4th ventricle is midline. The cerebellopontine angle i s unremarkable. EXTRACRANIAL: The visualized portion of the orbits is intact. No opacified mastoids. The visualized portion of th e paranasal sinuses are clear. SKULL: Good approximation of the right craniotomy flap. CONCLUSION: No acute findings in the brain. Ventriculostomy in good position. No evidence of intraventricular o r extra-axial blood. Toni Kirkland MD on October 23, 2016 at 21:06 Board Certified Radiologist. This report was verified electronically.
[2016-10-23 21:13] LABS: AUTOMATED NEUTROPHIL # 3.1 TH/MM3 (1.8-7.7); BASOPHIL # 0.1 TH/MM3 (0-0.2); BASOPHIL % 1.1 % (0.0-2.0); EOSINOPHIL # 0.1 TH/MM3 (0-0.4); EOSINOPHIL % 2.5 % (0.0-4.0); HEMATOCRIT 42.6 % (39.0-51.0); HEMO FLAGS DIFF FINAL; LYMPH % 30.5 % (9.0-44.0); LYMPHOCYTE # 1.7 TH/MM3 (1.0-4.8); MEAN CELL VOLUME 76.6 FL (80.0-100.0); MEAN CORPUSCULAR HEMOGLOBIN 25.3 PG (27.0-34.0); MONO % 9.1 % (0.0-8.0); NEUT % 56.8 % (16.0-70.0); PLATELET COUNT 178 TH/MM3 (150-450); RED BLOOD COUNT 5.57 MIL/MM3 (4.50-5.90); RED CELL DISTRIBUTION WIDTH 15.8 % (11.6-17.2); WHITE BLOOD COUNT 5.5 TH/MM3 (4.0-11.0)
[2016-10-23 21:20] LABS: ANION GAP 11 MEQ/L (5-15); APTT (PATIENT) 27.2 SEC (24.3-30.1); AST (GOT) 48 U/L (15-37); BICARBONATE 24.8 MEQ/L (21.0-32.0); BLOOD UREA NITROGEN 17 MG/DL (7-18); CHLORIDE 101 MEQ/L (98-107); GLOMERULAR FILTRATION RATE 53 ML/MIN (>89); POTASSIUM 3.9 MEQ/L (3.5-5.1); PROTHROMBIN TIME - PATIENT 11.4 SEC (9.8-11.6); SODIUM (NA) 137 MEQ/L (136-145)
[2016-10-23 21:23] LABS: ALKALINE PHOSPHATASE 87 U/L (45-117); ALT (GPT) 66 U/L (12-78); TOTAL BILIRUBIN ADULT 0.4 MG/DL (0.2-1.0)
== END 2016-10-23 21:48 | disposition home or self-care (01) ==
LOC: EDSEX → NEPC 17:43
DX: H93.19 Tinnitus, unspecified ear (principal); E11.9 Type 2 diabetes mellitus without complications; E78.00 Pure hypercholesterolemia, unspecified; H91.90 Unspecified hearing loss, unspecified ear; I10 Essential (primary) hypertension; I25.2 Old myocardial infarction; J44.9 Chronic obstructive pulmonary disease, unspecified; Z86.73 Personal history of transient ischemic attack (TIA), and cerebral infarction without residual deficits; Z98.2 Presence of cerebrospinal fluid drainage device
CPT/HCPCS: 70450; 80053; 85025; 85610; 85730; 99284

== ENCOUNTER 2017-01-25 14:52 | Emergency (ER) | payer OTHER ==
[~2017-01-25] VITALS: Ht 177.8 cm; Wt 109.0 kg
[~2017-01-25 14:52] MED LIST changes: -AMLO5 PO; +ARIC5TAB6 PO; +ASPI1TAB57 PO; +CALC1TAB12 PO; +COQ-30CA2 PO; +CYAN1SUB PO; +FERR325C PO; +GABA800T PO; +HYDR-3580; +LEVE10003; +NITR50VP; +POTA10TA15; -TOPR50TA PO
[2017-01-25 14:56] VITALS: BP 122/64; PULSE 60; RESP 18; TEMP 98.3; O2SAT 95
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
[2017-01-25] MEDS ORDERED: MULT-65 PO (17:10)
[2017-01-25 17:11] VITALS: BP 134/68; PULSE 51; RESP 19; O2SAT 97
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
[2017-01-25 17:46] LABS: AUTOMATED NEUTROPHIL # 3.5 TH/MM3 (1.8-7.7); BASOPHIL # 0.1 TH/MM3 (0-0.2); BASOPHIL % 1.5 % (0.0-2.0); EOSINOPHIL # 0.2 TH/MM3 (0-0.4); EOSINOPHIL % 3.8 % (0.0-4.0); HEMATOCRIT 41.5 % (39.0-51.0); HEMO FLAGS DIFF FINAL; LYMPH % 26.3 % (9.0-44.0); LYMPHOCYTE # 1.7 TH/MM3 (1.0-4.8); MEAN CELL VOLUME 78.4 FL (80.0-100.0); MEAN CORPUSCULAR HEMOGLOBIN 26.3 PG (27.0-34.0); MEAN CORPUSCULAR HGB CONC 33.6 % (32.0-36.0); MONO % 12.7 % (0.0-8.0); NEUT % 55.7 % (16.0-70.0); PLATELET COUNT 157 TH/MM3 (150-450); RED BLOOD COUNT 5.29 MIL/MM3 (4.50-5.90); RED CELL DISTRIBUTION WIDTH 15.8 % (11.6-17.2); WHITE BLOOD COUNT 6.3 TH/MM3 (4.0-11.0)
[2017-01-25 18:03] LABS: BICARBONATE 27.9 MEQ/L (21.0-32.0)
[2017-01-25 18:49] LABS: BLOOD, URINE NEG (NEG); COMMENT (UR) CULT NOT INDICATED; CULTURE IF INDICATED CULT NOT INDICATED; GLUCOSE,URINE NEG (NEG); HYALINE CAST, URINE 1 /lpf (RARE); KETONE, URINE NEG (NEG); MUCUS URINE FEW /lpf (OCC); NITRITE,URINE NEG (NEG); PH, URINE 5.5 (5.0-8.5); URINE COLOR YELLOW (YELLW/STRAW)
== END 2017-01-25 19:10 | disposition home or self-care (01) ==
LOC: NEPC 14:52
DX: S70.12XA Contusion of left thigh, initial encounter (principal); E11.9 Type 2 diabetes mellitus without complications; V00.831A Fall from motorized mobility scooter, initial encounter; J44.9 Chronic obstructive pulmonary disease, unspecified; R26.81 Unsteadiness on feet; I10 Essential (primary) hypertension; R52 Pain, unspecified; Y92.481 Parking lot as the place of occurrence of the external cause; Y93.I9 Activity, other involving external motion; V89.0XXA Person injured in unspecified motor-vehicle accident, nontraffic, initial encounter; Z98.2 Presence of cerebrospinal fluid drainage device; Z79.01 Long term (current) use of anticoagulants
CPT/HCPCS: 70450; 71010; 80048; 81001; 82550; 85025; 99284

== ENCOUNTER 2017-07-29 00:57 | Emergency (ER) | payer OTHER ==
[2017-07-29] MEDS ORDERED: SODIUM CHLORIDE 0.9% FLUSH 10 ML FLUSH IV FLUSH (01:15)
[2017-07-29 01:23] LABS: AUTOMATED NEUTROPHIL # 4.6 TH/MM3 (1.8-7.7); BASOPHIL # 0.1 TH/MM3 (0-0.2); BASOPHIL % 1.1 % (0.0-2.0); EOSINOPHIL # 0.2 TH/MM3 (0-0.4); EOSINOPHIL % 2.3 % (0.0-4.0); HEMATOCRIT 38.5 % (39.0-51.0); HEMO FLAGS DIFF FINAL; HEMOGLOBIN 12.9 GM/DL (13.0-17.0); LYMPH % 22.2 % (9.0-44.0); LYMPHOCYTE # 1.7 TH/MM3 (1.0-4.8); MEAN CELL VOLUME 79.3 FL (80.0-100.0); MEAN CORPUSCULAR HEMOGLOBIN 26.6 PG (27.0-34.0); MEAN CORPUSCULAR HGB CONC 33.5 % (32.0-36.0); MEAN PLATELET VOLUME 8.6 FL (7.0-11.0); MONO % 13.4 % (0.0-8.0); PLATELET COUNT 158 TH/MM3 (150-450); RED BLOOD COUNT 4.86 MIL/MM3 (4.50-5.90); RED CELL DISTRIBUTION WIDTH 15.2 % (11.6-17.2); WHITE BLOOD COUNT 7.6 TH/MM3 (4.0-11.0)
[2017-07-29 01:40] LABS: AMMONIA 40 MCMOL/L (11-32)
[2017-07-29 01:41] LABS: ALBUMIN 3.3 GM/DL (3.4-5.0); ANION GAP 9 MEQ/L (5-15); AST (GOT) 28 U/L (15-37); BICARBONATE 22.7 MEQ/L (21.0-32.0); BLOOD UREA NITROGEN 11 MG/DL (7-18); CALCIUM 8.1 MG/DL (8.5-10.1); CHLORIDE 110 MEQ/L (98-107); CREATININE 1.28 MG/DL (0.60-1.30); GLOMERULAR FILTRATION RATE 56 ML/MIN (>89); GLUCOSE,RANDOM 107 MG/DL (74-106); POTASSIUM 3.7 MEQ/L (3.5-5.1); SODIUM (NA) 142 MEQ/L (136-145)
[2017-07-29 01:52] LABS: ALKALINE PHOSPHATASE 65 U/L (45-117); ALT (GPT) 40 U/L (12-78); TOTAL BILIRUBIN ADULT 0.3 MG/DL (0.2-1.0); TOTAL PROTEIN 6.5 GM/DL (6.4-8.2)
[2017-07-29 01:57] LABS: ALCOHOL 66 MG/DL (0-5)
[2017-07-29 02:03] LABS: APTT (PATIENT) 21.6 SEC (24.3-30.1); INTERNATIONAL NORMALIZED RATIO 1.1 RATIO; PROTHROMBIN TIME - PATIENT 10.8 SEC (9.8-11.6)
== END 2017-07-29 02:35 | disposition left against medical advice (07) ==
LOC: NEPC 02:35
DX: S06.0X0A Concussion without loss of consciousness, initial encounter (principal); S00.11XA Contusion of right eyelid and periocular area, initial encounter; E78.00 Pure hypercholesterolemia, unspecified; W01.0XXA Fall on same level from slipping, tripping and stumbling without subsequent striking against object, initial encounter; Y93.01 Activity, walking, marching and hiking; Z79.899 Other long term (current) drug therapy
CPT/HCPCS: 70450; 71045; 72125; 80053; 80307; 82140; 84443; 85025; 85610; 85730; 93005; 99285

== ENCOUNTER 2017-08-01 14:11 | Inpatient (IN) | payer OTHER, MEDICARE ==
[~2017-08-01] VITALS: Ht 177.8 cm; Wt 110.2 kg
[~2017-08-01 14:11] MED LIST changes: -GABA600T PO; -HYDR-3580; -LEVE10003; +MULT-65 PO
[2017-08-01 14:27] VITALS: BP 187/92; PULSE 72; RESP 18; TEMP 98.9; O2SAT 99
[2017-08-01 15:25] LABS: AUTOMATED NEUTROPHIL # 6.1 TH/MM3 (1.8-7.7); BASOPHIL # 0.1 TH/MM3 (0-0.2); BASOPHIL % 0.9 % (0.0-2.0); EOSINOPHIL % 0.4 % (0.0-4.0); HEMATOCRIT 44.3 % (39.0-51.0); HEMOGLOBIN 14.7 GM/DL (13.0-17.0); LYMPH % 16.1 % (9.0-44.0); LYMPHOCYTE # 1.3 TH/MM3 (1.0-4.8); MEAN CELL VOLUME 78.5 FL (80.0-100.0); MEAN CORPUSCULAR HEMOGLOBIN 26.1 PG (27.0-34.0); MEAN CORPUSCULAR HGB CONC 33.2 % (32.0-36.0); MEAN PLATELET VOLUME 8.9 FL (7.0-11.0); MONO % 9.2 % (0.0-8.0); MONOCYTE # 0.8 TH/MM3 (0-0.9); NEUT % 73.4 % (16.0-70.0); PLATELET COUNT 178 TH/MM3 (150-450); RED BLOOD COUNT 5.64 MIL/MM3 (4.50-5.90); RED CELL DISTRIBUTION WIDTH 15.7 % (11.6-17.2); WHITE BLOOD COUNT 8.3 TH/MM3 (4.0-11.0)
[2017-08-01 15:46] LABS: ALBUMIN 4.2 GM/DL (3.4-5.0); ALT (GPT) 42 U/L (12-78); AST (GOT) 36 U/L (15-37); BICARBONATE 26.5 MEQ/L (21.0-32.0); BLOOD UREA NITROGEN 7 MG/DL (7-18); CALCIUM 9.3 MG/DL (8.5-10.1); CHLORIDE 105 MEQ/L (98-107); CREATININE 1.44 MG/DL (0.60-1.30); GLOMERULAR FILTRATION RATE 49 ML/MIN (>89); GLUCOSE,RANDOM 126 MG/DL (74-106); SODIUM (NA) 143 MEQ/L (136-145)
[2017-08-01 16:01] LABS: ACETAMINOPHEN LESS THAN 2.0 MCG/ML (10.0-30.0); ALKALINE PHOSPHATASE 71 U/L (45-117); CARBAMAZEPINE (TEGRETOL) LESS THAN 0.5 MCG/ML (4.0-12.0); PHENYTOIN (DILANTIN) 1.1 MCG/ML (10.0-20.0); TOTAL BILIRUBIN ADULT 0.7 MG/DL (0.2-1.0); TOTAL PROTEIN 7.8 GM/DL (6.4-8.2)
[2017-08-01 16:18] LABS: BILIRUBIN, URINE NEG (NEG); BLOOD, URINE SMALL (NEG); GLUCOSE,URINE TRACE mg/dL (NEG); KETONE, URINE 10 mg/dL (NEG); MUCUS URINE FEW /lpf (OCC); NITRITE,URINE NEG (NEG); PH, URINE 6.5 (5.0-8.5); URINE COLOR YELLOW (YELLW/STRAW); URINE LEUKOCYTE ESTERASE NEG (NEG)
[2017-08-01 17:55] VITALS: BP 191/105; PULSE 83; RESP 18; O2SAT 97
--- NOTE | 2017-08-01 18:18 | PD ---
HPI Chief Complaint: Psychiatric Symptoms Time Seen by Provider: 18:09 Travel History International Travel<30 days: No Contact w/Intl Traveler<30days: No Traveled to known affect area: No History of Present Illness HPI 67-year-old male brought in under the Ex Parte' act, for psychiatric evaluation. Patient denies any significant medical problems at this time. Patient denies suicidal or homicidal ideation at this time. It is reported that the patient was having inappropriate contact with his granddaughter. He has multiple allergies including Clinoril, cephalexin, lovastatin, and sertraline. PFSH Past Medical History Hx Anticoagulant Therapy: Yes Arthritis: Yes Asthma: Yes Anxiety: Yes Cancer: No High Cholesterol: Yes COPD: Yes Cerebrovascular Accident: Yes (HEMM STROKE 1 YR AGO, [employer] SHUNT ) Diabetes: Yes Patient Takes Glucophage: No Diminished Hearing: Yes (CURRENTLY HAVING DIFFICULTY HEARING) Endocrine: Yes Gastrointestinal Disorders: Yes (BARRETTS SYNDROME) Genitourinary: No Headaches: Yes Hepatitis: No Hiatal Hernia: No Hypertension: Yes Immune Disorder: No Implanted Vascular Access Dvce: Yes Musculoskeletal: Yes (NEUROPATHY) Neurologic: Yes (MAY 2016 STROKE, L SIDE WEAKNESS) Psychiatric: Yes (PREVIOUS STROKE) Reproductive: No Respiratory: Yes (COPD) Myocardial Infarction: Yes (X 2) Thyroid Disease: No Past Surgical History Abdominal Surgery: Yes (gastric bypass) AICD: No Body Medical Devices: STENTS, STERNAL WIRES, SHUNT Cardiac Surgery: Yes (15 CATHS AND 4 STENTS PLACED.TRIPLE BYPASS.) Joint Replacement: No Neurologic Surgery: Yes (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 STROKE ) Pacemaker: No Other Surgery: Yes Social History Alcohol Use: Yes (MODERATE) Tobacco Use: No Substance Use: No Allergies-Medications (Allergen,Severity, Reaction): Coded Allergies: cephalexin (Verified Allergy, Severe, EDEMA THROAT, 08/01/17) lovastatin (Verified Allergy, Severe, 08/01/17) sertraline (Verified Allergy, Severe, "VERY SEVERE OFF BALANCE AND DIARRHEA", 08/01/17) Uncoded Allergies: CLINORIL (Allergy, Unknown, 09/04/16) Reported Meds & Prescriptions Reported Meds & Active Scripts Active Keppra (Levetiracetam) 500 Mg Tab 1,000 Mg PO Q12HR 30 Days Reported Multi-Vitamin Daily (Multiple Vitamin) 1 Tab Tab 1 Tab PO DAILY Potassium Chloride Microencaps 10 Meq Tab Gabapentin 800 Mg Tab 800 Mg PO TID Nitroglycerin 5 Mg/Ml Inj Aspirin 81 (Aspirin) 81 Mg Tabdr 81 Mg PO DAILY Aricept (Donepezil HCl) 5 Mg Tablet PO HS Coq-10 (Coenzyme Q10 (Ubidecarenone)) 30 Mg Cap PO DAILY B-12 (Cyanocobalamin) 5,000 Mcg Subl 6,000 Mcg PO DAILY Calcium 500 +D (Calcium Carbonate-Cholecalciferol) 500-400 Mg-Unit Tab 1 Tab PO BID Prozac (Fluoxetine HCl) 20 Mg Cap 40 Mg PO DAILY Potassium Chloride ER (Potassium Chloride) 10 Meq Cap 10 Meq PO DAILY Xanax (Alprazolam) 0.25 Mg Tab 0.25 Mg PO BID PRN Lipitor (Atorvastatin Calcium) 40 Mg Tab 40 Mg PO EVERY OTHER DAY [place] (Hydrocodone-Acetaminophen) 7.5-325 mg Tab 1 Tab PO Q6H PRN Singulair (Montelukast Sodium) 10 Mg Tab 10 Mg PO HS Omeprazole 40 Mg Cap 40 Mg PO DAILY Review of Systems Except as stated in HPI: all other systems reviewed are Neg General / Constitutional: No: Fever Eyes: No: Visual changes HENT: No: Headaches Cardiovascular: No: Chest Pain or Discomfort Respiratory: No: Shortness of Breath Gastrointestinal: No: Abdominal Pain Genitourinary: No: Dysuria Musculoskeletal: No: Pain Skin: No Rash Neurologic: No: Weakness Psychiatric: No: Depression Endocrine: No: Polydipsia Hematologic/Lymphatic: No: Easy Bruising Physical Exam Narrative GENERAL: Patient appears somewhat anxious otherwise in no acute distress. SKIN: Warm and dry. Normal color. Normal turgor. Patient is noted to have a black eye on the right HEAD: Atraumatic. Normocephalic. EYES: Pupils equal and round. No scleral icterus. No injection or drainage. ENT: No nasal bleeding or discharge. Mucous membranes pink and moist. No dental issues. Pharynx is clear. Airways patent. NECK: Trachea midline. Supple and nontender CARDIOVASCULAR: Regular rate and rhythm. RESPIRATORY: No accessory muscle use. Clear to auscultation. Breath sounds equal bilaterally. MUSCULOSKELETAL: Extremities without clubbing, cyanosis, or edema. No obvious deformities. NEUROLOGICAL: Awake and alert. No obvious cranial nerve deficits. Motor grossly within normal limits. Five out of 5 muscle strength in the arms and legs. Normal speech. PSYCHIATRIC: Appropriate mood and affect; insight and judgment normal. Data Data Last Documented VS Vital Signs Date Time Temp Pulse Resp B/P (MAP) Pulse Ox O2 Delivery O2 Flow Rate FiO2 08/01/17 17:55 83 18 191/105 (133) 97 Room Air 08/01/17 14:27 98.9 Orders Orders Complete Blood Count With Diff (08/01/17 14:26) Comprehensive Metabolic Panel (08/01/17 14:26) Urinalysis - C+S If Indicated (08/01/17 14:26) Valproic Acid (Depakene) (08/01/17 14:26) Phenytoin (Dilantin) (08/01/17 14:26) Psych Screen (08/01/17 14:26) Phenobarbital (08/01/17 14:26) Carbamazepine (Tegretol) (08/01/17 14:26) [place] (Li) (08/01/17 14:26) Blood Glucose (08/01/17 14:26) Diet Regular Basic (08/01/17 Dinner) Drug Screen, Random Urine (08/01/17 14:26) Alcohol (Ethanol) (08/01/17 14:26) Salicylates (Aspirin) (08/01/17 14:26) Tylenol (Acetaminophen) (08/01/17 14:26) Labs Laboratory Tests Test 08/01/17 14:32 08/01/17 16:00 White Blood Count 8.3 TH/MM3 Red Blood Count 5.64 MIL/MM3 Hemoglobin 14.7 GM/DL Hematocrit 44.3 % Mean Corpuscular Volume 78.5 FL Mean Corpuscular Hemoglobin 26.1 PG Mean Corpuscular Hemoglobin Concent 33.2 % Red Cell Distribution Width 15.7 % Platelet Count 178 TH/MM3 Mean Platelet Volume 8.9 FL Neutrophils (%) (Auto) 73.4 % Lymphocytes (%) (Auto) 16.1 % Monocytes (%) (Auto) 9.2 % Eosinophils (%) (Auto) 0.4 % Basophils (%) (Auto) 0.9 % Neutrophils # (Auto) 6.1 TH/MM3 Lymphocytes # (Auto) 1.3 TH/MM3 Monocytes # (Auto) 0.8 TH/MM3 Eosinophils # (Auto) 0.0 TH/MM3 Basophils # (Auto) 0.1 TH/MM3 CBC Comment DIFF FINAL Differential Comment Blood Urea Nitrogen 7 MG/DL Creatinine 1.44 MG/DL Random Glucose 126 MG/DL Total Protein 7.8 GM/DL Albumin 4.2 GM/DL Calcium Level 9.3 MG/DL Alkaline Phosphatase 71 U/L Aspartate Amino Transf (AST/SGOT) 36 U/L Alanine Aminotransferase (ALT/SGPT) 42 U/L Total Bilirubin 0.7 MG/DL Sodium Level 143 MEQ/L Potassium Level 3.9 MEQ/L Chloride Level 105 MEQ/L Carbon Dioxide Level 26.5 MEQ/L Anion Gap 12 MEQ/L Estimat Glomerular Filtration Rate 49 ML/MIN Salicylates Level LESS THAN 1.7 MG/DL Acetaminophen Level LESS THAN 2.0 MCG/ML Phenytoin (Dilantin) Level 1.1 MCG/ML Valproic Acid (Depakene) Level 4 MCG/ML Carbamazepine (Tegretol) Level LESS THAN 0.5 MCG/ML Phenobarbital Level LESS THAN 2.1 MCG/ML [place] Level LESS THAN 0.1 MEQ/L Ethyl Alcohol Level LESS THAN 3 MG/DL Urine Color YELLOW Urine Turbidity CLEAR Urine pH 6.5 Urine Specific [place] 1.023 Urine Protein 30 mg/dL Urine Glucose (UA) TRACE mg/dL Urine Ketones 10 mg/dL Urine Occult Blood SMALL Urine Nitrite NEG Urine Bilirubin NEG Urine Urobilinogen LESS THAN 2.0 MG/DL Urine Leukocyte Esterase NEG Urine RBC 1 /hpf Urine WBC 2 /hpf Urine Mucus FEW /lpf Microscopic Urinalysis Comment CULT NOT INDICATED Urine Opiates Screen NEG Urine Barbiturates Screen NEG Urine Amphetamines Screen NEG Urine Benzodiazepines Screen NEG Urine Cocaine Screen NEG Urine Cannabinoids Screen NEG [facility] Medical Decision Making Medical Screen Exam Complete: Yes Emergency Medical Condition: Yes Differential Diagnosis Ex Parte'. Deviant behavior. Need for psych eval. Narrative Course Psychiatric labs ordered per protocol. Patient is given 0.1 mg clonidine p.o. as well as 1 mg lorazepam p.o. Patient is medically clear for psychiatric evaluation. Psych screen is ordered. Condition: Stable Obinna Drake August 01, 2017 18:18
[2017-08-01] MEDS ORDERED: LORazepam 1 MG TAB PO ONE (18:30)
[2017-08-01] MEDS ORDERED: cloNIDine HCL 0.1 MG TAB PO ONE (18:30)
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
--- NOTE | 2017-08-01 20:12 | PD ---
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 ) Diabetes: Yes Patient Takes Glucophage: No Diminished Hearing: Yes (CURRENTLY HAVING DIFFICULTY HEARING) Endocrine: Yes Gastrointestinal Disorders: Yes (BARRETTS SYNDROME) Genitourinary: No Headaches: Yes Hepatitis: No Hiatal Hernia: No Hypertension: Yes Immune Disorder: No Implanted Vascular Access Dvce: Yes Musculoskeletal: Yes (NEUROPATHY) Neurologic: Yes (MAY 2016 STROKE, L SIDE WEAKNESS) Psychiatric: Yes (PREVIOUS STROKE) Reproductive: No Respiratory: Yes (COPD) Myocardial Infarction: Yes (X 2) Thyroid Disease: No Past Surgical History Abdominal Surgery: Yes (gastric bypass) AICD: No Body Medical Devices: STENTS, STERNAL WIRES, SHUNT Cardiac Surgery: Yes (15 CATHS AND 4 STENTS PLACED.TRIPLE BYPASS.) Joint Replacement: No Neurologic Surgery: Yes (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 STROKE ) Pacemaker: No Other Surgery: Yes Psychiatric History Psychiatric History Hx Psychiatric Treatment: DENIES History of Inpatient Treatment: No Social History Hx Alcohol Use: Yes (MODERATE) Hx Tobacco Use: No Hx Substance Use: No Substance Use Type: Alcohol Other Substances Used: PT ADMITS TO BEING A MODERATE DRINKER Hx of Substance Use Treatment: No Allergies-Medications (Allergen,Severity, Reaction): Coded Allergies: cephalexin (Verified Allergy, Severe, EDEMA THROAT, 08/01/17) lovastatin (Verified Allergy, Severe, 08/01/17) sertraline (Verified Allergy, Severe, "VERY SEVERE OFF BALANCE AND DIARRHEA", 08/01/17) Uncoded Allergies: CLINORIL (Allergy, Unknown, 09/04/16) Reported Meds & Prescriptions Reported Meds & Active Scripts Active Keppra (Levetiracetam) 500 Mg Tab 1,000 Mg PO Q12HR 30 Days Reported Multi-Vitamin Daily (Multiple Vitamin) 1 Tab Tab 1 Tab PO DAILY Potassium Chloride Microencaps 10 Meq Tab Gabapentin 800 Mg Tab 800 Mg PO TID Nitroglycerin 5 Mg/Ml Inj Aspirin 81 (Aspirin) 81 Mg Tabdr 81 Mg PO DAILY Aricept (Donepezil HCl) 5 Mg Tablet PO HS Coq-10 (Coenzyme Q10 (Ubidecarenone)) 30 Mg Cap PO DAILY B-12 (Cyanocobalamin) 5,000 Mcg Subl 6,000 Mcg PO DAILY Calcium 500 +D (Calcium Carbonate-Cholecalciferol) 500-400 Mg-Unit Tab 1 Tab PO BID Prozac (Fluoxetine HCl) 20 Mg Cap 40 Mg PO DAILY Potassium Chloride ER (Potassium Chloride) 10 Meq Cap 10 Meq PO DAILY Xanax (Alprazolam) 0.25 Mg Tab 0.25 Mg PO BID PRN Lipitor (Atorvastatin Calcium) 40 Mg Tab 40 Mg PO EVERY OTHER DAY [place] (Hydrocodone-Acetaminophen) 7.5-325 mg Tab 1 Tab PO Q6H PRN Singulair (Montelukast Sodium) 10 Mg Tab 10 Mg PO HS Omeprazole 40 Mg Cap 40 Mg PO DAILY MDM Orders Orders Complete Blood Count With Diff (08/01/17 14:26) Comprehensive Metabolic Panel (08/01/17 14:26) Urinalysis - C+S If Indicated (08/01/17 14:26) Valproic Acid (Depakene) (08/01/17 14:26) Phenytoin (Dilantin) (08/01/17 14:26) Psych Screen (08/01/17 14:26) Phenobarbital (08/01/17 14:26) Carbamazepine (Tegretol) (08/01/17 14:26) [place] (Li) (08/01/17 14:26) Blood Glucose (08/01/17 14:26) Diet Regular Basic (08/01/17 Dinner) Drug Screen, Random Urine (08/01/17 14:26) Alcohol (Ethanol) (08/01/17 14:26) Salicylates (Aspirin) (08/01/17 14:26) Tylenol (Acetaminophen) (08/01/17 14:26) Clonidine (Catapres) (08/01/17 18:30) Lorazepam (Ativan) (08/01/17 18:30) Results Vital Signs Date Time Temp Pulse Resp B/P (MAP) Pulse Ox O2 Delivery O2 Flow Rate FiO2 08/01/17 17:55 83 18 191/105 (133) 97 Room Air 08/01/17 14:27 98.9 72 18 187/92 (123) 99 Laboratory Tests Test 08/01/17 14:32 08/01/17 16:00 White Blood Count 8.3 Red Blood Count 5.64 Hemoglobin 14.7 Hematocrit 44.3 Mean Corpuscular Volume 78.5 Mean Corpuscular Hemoglobin 26.1 Mean Corpuscular Hemoglobin Concent 33.2 Red Cell Distribution Width 15.7 Platelet Count 178 Mean Platelet Volume 8.9 Neutrophils (%) (Auto) 73.4 Lymphocytes (%) (Auto) 16.1 Monocytes (%) (Auto) 9.2 Eosinophils (%) (Auto) 0.4 Basophils (%) (Auto) 0.9 Neutrophils # (Auto) 6.1 Lymphocytes # (Auto) 1.3 Monocytes # (Auto) 0.8 Eosinophils # (Auto) 0.0 Basophils # (Auto) 0.1 CBC Comment DIFF FINAL Differential Comment Blood Urea Nitrogen 7 Creatinine 1.44 Random Glucose 126 Total Protein 7.8 Albumin 4.2 Calcium Level 9.3 Alkaline Phosphatase 71 Aspartate Amino Transf (AST/SGOT) 36 Alanine Aminotransferase (ALT/SGPT) 42 Total Bilirubin 0.7 Sodium Level 143 Potassium Level 3.9 Chloride Level 105 Carbon Dioxide Level 26.5 Anion Gap 12 Estimat Glomerular Filtration Rate 49 Salicylates Level LESS THAN 1.7 Acetaminophen Level LESS THAN 2.0 Phenytoin (Dilantin) Level 1.1 Valproic Acid (Depakene) Level 4 Carbamazepine (Tegretol) Level LESS THAN 0.5 Phenobarbital Level LESS THAN 2.1 [place] Level LESS THAN 0.1 Ethyl Alcohol Level LESS THAN 3 Urine Color YELLOW Urine Turbidity CLEAR Urine pH 6.5 Urine Specific [place] 1.023 Urine Protein 30 Urine Glucose (UA) TRACE Urine Ketones 10 Urine Occult Blood SMALL Urine Nitrite NEG Urine Bilirubin NEG Urine Urobilinogen LESS THAN 2.0 Urine Leukocyte Esterase NEG Urine RBC 1 Urine WBC 2 Urine Mucus FEW Microscopic Urinalysis Comment CULT NOT INDICATED Urine Opiates Screen NEG Urine Barbiturates Screen NEG Urine Amphetamines Screen NEG Urine Benzodiazepines Screen NEG Urine Cocaine Screen NEG Urine Cannabinoids Screen NEG Condition: Stable Do,Marilin Dina Jasmine [employer] August 01, 2017 20:12
[2017-08-01] MEDS ORDERED: MAGNESIUM HYDROXIDE SUSP 30 ML CUP PO PRN (21:00)
[2017-08-01] MEDS ORDERED: NON-FORMULARY DRUG (Calcium Carbonate-Cholecalciferol (Calcium 500 +D) 1 TAB) PO SCH (21:00)
[2017-08-01] MEDS ORDERED: ACETAMINOPHEN 325 MG TAB PO PRN (21:00)
[2017-08-01] MEDS ORDERED: ALUMINUM/MAGNESIUM/SIMETH 30 ML CUP PO PRN (21:00)
[2017-08-01 22:10] VITALS: BP 155/95; PULSE 76; RESP 22; TEMP 98.2; O2SAT 95
[2017-08-01] MEDS: MONTELUKAST SODIUM 10 MG TAB PO SCH (22:48)
[2017-08-01] MEDS: levETIRAcetam 500 MG TAB PO SCH (22:48)
[2017-08-02 05:39] VITALS: BP 179/98; PULSE 72; RESP 16; TEMP 98.2; O2SAT 98
[2017-08-02 06:05] VITALS: BP 160/98; PULSE 74
[2017-08-02] MEDS ORDERED: NON-FORMULARY DRUG (Multiple Vitamin (Multi-Vitamin Daily) 1 TAB) PO SCH (09:00)
[2017-08-02] MEDS ORDERED: NON-FORMULARY DRUG (Omeprazole 40 MG) PO SCH (09:00)
[2017-08-02] MEDS: CYANOCOBALAMIN 1,000 MCG TAB PO SCH (09:00)
[2017-08-02] MEDS: POTASSIUM CHLORIDE 10 MEQ CAP PO SCH (09:00)
[2017-08-02] MEDS: MULTIVITAMIN TAB PO SCH (09:29)
[2017-08-02] MEDS: PANTOPRAZOLE SOD 40 MG DELAYED RELEASE TAB PO SCH (09:29)
[2017-08-02] MEDS: GABAPENTIN 400 MG CAP PO SCH ×2 (09:29→21:01)
[2017-08-02] MEDS: ASPIRIN EC 81 MG TABEC PO SCH (09:29)
[2017-08-02] MEDS: levETIRAcetam 500 MG TAB PO SCH ×2 (09:29→21:00)
[2017-08-02] MEDS: CALCIUM/VITAMIN D 250 MG/125 U TAB PO SCH ×2 (09:30→21:01)
[2017-08-02 09:37] LABS: BICARBONATE 25.8 MEQ/L (21.0-32.0); BLOOD UREA NITROGEN 12 MG/DL (7-18); CALCIUM 8.7 MG/DL (8.5-10.1); CHLORIDE 107 MEQ/L (98-107); CREATININE 1.44 MG/DL (0.60-1.30); GLOMERULAR FILTRATION RATE 49 ML/MIN (>89); GLUCOSE,RANDOM 142 MG/DL (74-106); SODIUM (NA) 142 MEQ/L (136-145)
[2017-08-02 09:38] LABS: CHOLESTEROL 105 MG/DL (120-200); TRIGLYCERIDES 85 MG/DL (42-150)
[2017-08-02 09:40] LABS: CHOLESTEROL/ HDL RATIO 1.83 RATIO; HDL CHOLESTEROL 57.2 MG/DL (40.0-60.0); LDL CHOLESTEROL 31 MG/DL (0-99)
--- NOTE | 2017-08-02 11:35 | PD.CONS ---
HPI Service [facility] Hospitalists Consult Requested By Psychiatric Reason for Consult Medical management Primary Care Physician Unknown Diagnoses: History of Present Illness Mr. cutler is a 67-year-old male with a history of diabetes, CVA who was brought to the hospital under the [place]e' act for psychiatric evaluation. It is reported that patient was having inappropriate contact with his granddaughter. Hospitalist service was consulted for medical management. Patient currently denies any acute concerns. Denies any chest pain, shortness of breath, fever or chills. Denies any changes in bowel or bladder habits. He reports that he has diabetes but does not take any medications for it. He is also not keen on adding more medications. Review of Systems Except as stated in HPI: all other systems reviewed are Neg Past Family Social History Allergies: Coded Allergies: cephalexin (Verified Allergy, Severe, EDEMA THROAT, 08/01/17) lovastatin (Verified Allergy, Severe, 08/01/17) sertraline (Verified Allergy, Severe, "VERY SEVERE OFF BALANCE AND DIARRHEA", 08/01/17) Uncoded Allergies: CLINORIL (Allergy, Unknown, 09/04/16) Past Medical History Coronary artery disease status post CABG and stent placements. Hemorrhagic stroke 2017 status post TARIFF COUNSEL shunt placement Triana's esophagus Diabetes mellitus Anxiety Asthma, COPD Hyperlipidemia Past Surgical History CABG triple bypass, stent placement, TARIFF COUNSEL shunt placement Reported Medications Current Medications Medications (Trade) Dose Ordered Sig/Chaz Route Start Time Stop Time Status Last Admin (Tylenol) 650 mg Q4H PRN PO 08/01/17 21:00 (Milk Of Magnesia Liq) 30 ml DAILY PRN PO 08/01/17 21:00 (Mag-Al Plus Susp Liq) 30 ml Q6H PRN PO 08/01/17 21:00 (Ecotrin Ec) 81 mg DAILY PO 08/02/17 09:00 08/02/17 09:29 (Vitamin B12) 6,000 mcg DAILY PO 08/02/17 09:00 (Neurontin) 800 mg BID PO 08/02/17 09:00 08/02/17 09:29 (Keppra) 1,000 mg Q12HR PO 08/01/17 21:45 08/02/17 09:29 (Singulair) 10 mg HS PO 08/01/17 21:00 08/01/17 22:48 (KCl) 10 meq DAILY PO 08/02/17 09:00 (Oscal-D 250-125) 500 mg BID PO 08/02/17 09:00 08/02/17 09:30 (Theragran) 1 tab DAILY PO 08/02/17 09:00 08/02/17 09:29 (Protonix) 40 mg DAILY PO 08/02/17 09:00 08/02/17 09:29 Family History No family history of Alzheimer's or Parkinson's. Social History Patient reports moderate alcohol use. Denies using tobacco or illicit drugs. Physical Exam Vital Signs Vital Signs Date Time Temp Pulse Resp B/P (MAP) Pulse Ox O2 Delivery O2 Flow Rate FiO2 08/02/17 06:05 74 160/98 (118) 08/02/17 05:39 98.2 72 16 179/98 (125) 98 08/01/17 22:38 08/01/17 22:10 98.2 76 22 155/95 (115) 95 08/01/17 17:55 83 18 191/105 (133) 97 Room Air 08/01/17 14:27 98.9 72 18 187/92 (123) 99 Physical Exam GENERAL: This is a well-nourished, well-developed patient, in no apparent distress. SKIN: No rashes, ecchymoses or lesions. Warm and dry. HEAD: Atraumatic. Normocephalic. No temporal or scalp tenderness. EYES: Pupils equal round and reactive. No injection or drainage. ENT: Nose without bleeding, purulent drainage or septal hematoma. Airway patent. NECK: Trachea midline. No lymphadenopathy. Supple, nontender, no meningeal signs. CARDIOVASCULAR: Regular rate and rhythm without murmurs, gallops, or rubs. No JVD. RESPIRATORY: Clear to auscultation. Breath sounds equal bilaterally. No wheezes , rales, or rhonchi. GASTROINTESTINAL: Abdomen soft, non-tender, nondistended. No guarding. MUSCULOSKELETAL: Extremities without clubbing, cyanosis, or edema. NEUROLOGICAL: Awake and alert. Cranial nerves II through XII intact. No focal neurological deficits. Normal speech. Laboratory Laboratory Tests Test 08/01/17 14:32 08/01/17 16:00 08/02/17 08:36 White Blood Count 8.3 Red Blood Count 5.64 Hemoglobin 14.7 Hematocrit 44.3 Mean Corpuscular Volume 78.5 Mean Corpuscular Hemoglobin 26.1 Mean Corpuscular Hemoglobin Concent 33.2 Red Cell Distribution Width 15.7 Platelet Count 178 Mean Platelet Volume 8.9 Neutrophils (%) (Auto) 73.4 Lymphocytes (%) (Auto) 16.1 Monocytes (%) (Auto) 9.2 Eosinophils (%) (Auto) 0.4 Basophils (%) (Auto) 0.9 Neutrophils # (Auto) 6.1 Lymphocytes # (Auto) 1.3 Monocytes # (Auto) 0.8 Eosinophils # (Auto) 0.0 Basophils # (Auto) 0.1 CBC Comment DIFF FINAL Differential Comment Blood Urea Nitrogen 7 12 Creatinine 1.44 1.44 Random Glucose 126 142 Total Protein 7.8 Albumin 4.2 Calcium Level 9.3 8.7 Alkaline Phosphatase 71 Aspartate Amino Transf (AST/SGOT) 36 Alanine Aminotransferase (ALT/SGPT) 42 Total Bilirubin 0.7 Sodium Level 143 142 Potassium Level 3.9 3.5 Chloride Level 105 107 Carbon Dioxide Level 26.5 25.8 Anion Gap 12 9 Estimat Glomerular Filtration Rate 49 49 Salicylates Level LESS THAN 1.7 Acetaminophen Level LESS THAN 2.0 Phenytoin (Dilantin) Level 1.1 Valproic Acid (Depakene) Level 4 Carbamazepine (Tegretol) Level LESS THAN 0.5 Phenobarbital Level LESS THAN 2.1 [place] Level LESS THAN 0.1 Ethyl Alcohol Level LESS THAN 3 Urine Color YELLOW Urine Turbidity CLEAR Urine pH 6.5 Urine Specific [place] 1.023 Urine Protein 30 Urine Glucose (UA) TRACE Urine Ketones 10 Urine Occult Blood SMALL Urine Nitrite NEG Urine Bilirubin NEG Urine Urobilinogen LESS THAN 2.0 Urine Leukocyte Esterase NEG Urine RBC 1 Urine WBC 2 Urine Mucus FEW Microscopic Urinalysis Comment CULT NOT INDICATED Urine Opiates Screen NEG Urine Barbiturates Screen NEG Urine Amphetamines Screen NEG Urine Benzodiazepines Screen NEG Urine Cocaine Screen NEG Urine Cannabinoids Screen NEG Triglycerides Level 85 Cholesterol Level 105 LDL Cholesterol 31 HDL Cholesterol 57.2 Cholesterol/HDL Ratio 1.83 Result Diagram: 08/01/17 1432 08/02/17 0836 Assessment and Plan Problem List: (1) 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 angelo is a 67-year-old male with a history of CVA, diabetes mellitus, hypertension who is currently under the care of psychiatry unit. Hospitalist service was consulted for medical management. Behavioral disturbance -management per psychiatry. History of hemorrhagic CVA -Status post TARIFF COUNSEL shunt by Dr. Trejo -Continue aspirin 81 mg daily, Keppra 1000 mg p.o. every 12 hours. -We will add Lipitor 20 mg daily. Hypertension -Start patient on nifedipine 30 mg daily -May consider JAGUAR inhibitor or ARB in future. Diabetes mellitus -Blood glucose under control. Last blood glucose 142. -Patient's creatinine is 1.44 and estimated GFR 49. We will start metformin 500 mg daily. Can be titrated up. CKD stage III -appears to be stable. Will monitor periodically. Full code. Ambulation. Thank you for the consult. We will continue to follow this patient with you. Ketan Saxena DO August 02, 2017 11:35 am
[2017-08-02] MEDS ORDERED: NIFEdipine 30 MG SUSTAINED RELEASE TAB PO ONE (13:30)
[2017-08-02 14:41] LABS: HEMOGLOBIN A1C 5.7 % (4.3-6.0)
[2017-08-02] MEDS ORDERED: diphenhydrAMINE HCL 50 MG CAP PO PRN (15:00)
[2017-08-02] MEDS ORDERED: LORazepam 0.5 MG TAB PO PRN (15:00)
--- NOTE | 2017-08-02 15:56 | HHI.HP ---
Provisional Diagnosis Admission Date August 01, 2017 at 20:52 [place] I. 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 Express and informed consent means consent voluntarily given in writing, by a competent person, after sufficient explanation and disclosure of the subject matter involved to enable the person to make a knowing and willful decision without any element of force, fraud, deceit, duress, or other form of constraint or coercion. This person is 18 years of age or older, is not now known to be incompetent to consent to treatment with a guardian advocate, and does not have a health care surrogate or proxy currently making medical treatment decisions. I have found this person to be one of the following: [] Competent to provide express and informed consent, as defined above, for voluntary admission to this facility and is competent to provide express and informed consent for treatment. He/she has the consistent capacity to make well reasoned, willful, and knowing decisions concerning his or her medical or mental health treatment. The person fully and consistently understands the purpose of the admission for examination/placement and is fully capable of personally exercising all rights assured under [place]xxx] Incompetent to provide express and informed consent to voluntary admission , and this is incompetent to provide express and informed consent to treatment. The person must be transferred to involuntary status and a petition for a guardian advocate filed with the Circuit Court. [] Refusing to provide express and informed consent to voluntary admission but is competent to provide express and informed consent for treatment. The person must be discharged or transferred to involuntary status. Form shall be completed within 24 hours of a person's arrival at the receiving facility and filed in the clinical record of each person: 1. Admitted on a voluntary basis 2. Permitted to provide express and informed consent to his/her own treatment 3. Allowed to transfer from involuntary to voluntary status 4. Prior to permitting a person to consent to his or her own treatment after having been previously found incompetent to consent to treatment. 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 Extremity also noted that there were remote photographs on cell phone of his granddaughter's hand on his genitalia. Patient was found sitting in hospital bed noted become cooperative. Patient is alert and oriented 1 in the ER but alert and oriented to person and place only during interview today. Patient reports he has been having difficulty with memory since the stroke but denies having had any behavioral changes that he has noticed. Patient reported being compliant with medications and see reports his assists him with this. Patient reports sad regarding his 's "always takes her girlfriend with her everywhere". Patient states that he had been left alone for days at a time when she leaves with her girlfriend. Patient reports no changes sleep, appetite or concentration but did note difficulty remembering as stated above, and also decrease in energy. She denies any SI or HI, no perception disturbances or delusional material elicited. Patient patient states that he had called EMS himself because his left him alone for 5 days. Patient denies having ever been physically aggressive toward life although he did note having verbal arguments with her. Patient this recent increase in alcohol use, and this stealing from stores but was not able to provide explanation, as well as having spoken to prostitutes recently but denies any sexual involvement. Patient states that usually involves that lately stating that she always needs Family psychiatric history: Denies Past psychiatric history: Previous psychiatric diagnoses of depression, no previous psychiatric admissions, suicidal behavior, denies history of abuse. Substance use history: Alcohol use times a week usually 6-8 beers at a time or episodes of withdrawal. Patient denies any previous other substances. Past medical history: NEWSPAPER REPORTER shunt after hemorrhagic stroke in 2017, COPD, CAD with bypass, hypertension, CVA with left-sided residual weakness, hypertension Allergies: Sertraline, cephalexin, lovastatin, clinoril Social history: , domiciled with , no children, unemployed on social. Collateral contact () Shannon [employer] - [phone]. Review of Systems Except as stated in HPI: all other systems reviewed are Neg Past Psych History Psychological trauma history Denies Violence risk - others (6 mos) Elevated due to recent report of patient having threatened to shoot 's Violence risk - self (6 mos) Low Substance Abuse History Drugs/Alcohol past 12 months Alcohol use times a week usually 6-8 beers at a time or episodes of withdrawal. Patient denies any previous other substances. Past Family Social History Coded Allergies: cephalexin (Verified Allergy, Severe, EDEMA THROAT, 08/01/17) lovastatin (Verified Allergy, Severe, 08/01/17) sertraline (Verified Allergy, Severe, "VERY SEVERE OFF BALANCE AND DIARRHEA", 08/01/17) Uncoded Allergies: CLINORIL (Allergy, Unknown, 09/04/16) Active Scripts Levetiracetam (Keppra) 500 Mg Tab, 1000 MG PO Q12HR for SZ for 30 Days, TAB Prov:Melani Urbano MD 06/04/16 Reported Medications Multiple Vitamin (Multi-Vitamin Daily) 1 Tab Tab, 1 TAB PO DAILY for Nutritional Supplement, TAB 0 Refills 01/25/17 Potassium Chloride Microencaps (Potassium Chloride Microencaps) 10 Meq Tab 12/30/16 Gabapentin (Gabapentin) 800 Mg Tab, 800 MG PO TID 12/30/16 Nitroglycerin (Nitroglycerin) 5 Mg/Ml Inj 10/23/[address] (Aspirin 81) 81 Mg Tabdr, 81 MG PO DAILY, TAB 0 Refills 10/23/16 Donepezil HCl (Aricept) 5 Mg Tablet, PO HS 10/23/16 Coenzyme Q10 (Ubidecarenone) (Coq-10) 30 Mg Cap, PO DAILY 10/23/16 Cyanocobalamin (B-12) 5,000 Mcg Subl, 6000 MCG PO DAILY for Nutritional Supplement, TAB.SL 0 Refills 10/23/16 Calcium Carbonate-Cholecalciferol (Calcium 500 +D) 500-400 Mg-Unit Tab, 1 TAB PO BID for Calcium Supplement, TAB 0 Refills 10/23/16 Fluoxetine (Prozac) 20 Mg Cap, 40 MG PO DAILY, #30 CAP 0 Refills 08/30/16 Potassium Chloride ER (Potassium Chloride ER) 10 Meq Cap, 10 MEQ PO DAILY for Electrolyte Replacement, #30 CAP 0 Refills 08/30/16 Alprazolam (Xanax) 0.25 Mg Tab, 0.25 MG PO BID Y for ANXIETY, TAB 0 Refills 08/30/16 Atorvastatin (Lipitor) 40 Mg Tab, 40 MG PO EVERY OTHER DAY for Cholesterol Management, #30 TAB 0 Refills 08/30/16 Hydrocodone-Acetaminophen ([place]) 7.5-325 mg Tab, 1 TAB PO Q6H Y for PAIN, TAB 0 Refills 08/30/16 Montelukast (Singulair) 10 Mg Tab, 10 MG PO HS, #30 TAB 0 Refills 08/30/16 Omeprazole (Omeprazole) 40 Mg Cap, 40 MG PO DAILY, #30 CAP 0 Refills 05/22/16 Current Medications Medications (Trade) Dose Ordered Sig/Chaz Route Start Time Stop Time Status Last Admin (Tylenol) 650 mg Q4H PRN PO 08/01/17 21:00 (Milk Of Magnesia Liq) 30 ml DAILY PRN PO 08/01/17 21:00 (Mag-Al Plus Susp Liq) 30 ml Q6H PRN PO 08/01/17 21:00 (Ecotrin Ec) 81 mg DAILY PO 08/02/17 09:00 08/02/17 09:29 (Vitamin B12) 6,000 mcg DAILY PO 08/02/17 09:00 (Neurontin) 800 mg BID PO 08/02/17 09:00 08/02/17 09:29 (Keppra) 1,000 mg Q12HR PO 08/01/17 21:45 08/02/17 09:29 (Singulair) 10 mg HS PO 08/01/17 21:00 08/01/17 22:48 (KCl) 10 meq DAILY PO 08/02/17 09:00 (Oscal-D 250-125) 500 mg BID PO 08/02/17 09:00 08/02/17 09:30 (Theragran) 1 tab DAILY PO 08/02/17 09:00 08/02/17 09:29 (Protonix) 40 mg DAILY PO 08/02/17 09:00 08/02/17 09:29 (Procardia Xl) 30 mg DAILY PO 08/03/17 09:00 (Lipitor) 20 mg HS PO 08/02/17 21:00 (Glucophage) 500 mg DAILY PO 08/03/17 09:00 (Benadryl) 50 mg HS PRN PO 08/02/17 15:00 (Ativan) 0.5 mg Q6H PRN PO 08/02/17 15:00 (SEROquel) 12.5 mg BID PO 08/02/17 21:00 Family Psych History denies Social History , domiciled with , no children, unemployed on social. Collateral contact () [employer] - [phone]. Patient's Strengths (min. 2) Verbal and communicative Physical Exam Patient not noted to be in acute distress, noted to have at this time recent fall, no signs of tremor or EPS, no psychomotor agitation or retardation. Vital Signs Vital Signs Date Time Temp Pulse Resp B/P (MAP) Pulse Ox O2 Delivery O2 Flow Rate FiO2 08/02/17 06:05 74 160/98 (118) 08/02/17 05:39 98.2 16 98 08/01/17 17:55 Room Air I/O 08/02/17 08/02/17 08/02/17 07:59 15:59 23:59 Intake Total 120 ml Balance 120 ml Lab Results Labs reviewed Test 08/01/17 16:00 08/02/17 08:36 Urine Color YELLOW Urine Turbidity CLEAR Urine pH 6.5 Urine Specific [place] 1.023 Urine Protein 30 mg/dL Urine Glucose (UA) TRACE mg/dL Urine Ketones 10 mg/dL Urine Occult Blood SMALL Urine Nitrite NEG Urine Bilirubin NEG Urine Urobilinogen LESS THAN 2.0 MG/DL Urine Leukocyte Esterase NEG Urine RBC 1 /hpf Urine WBC 2 /hpf Urine Mucus FEW /lpf Microscopic Urinalysis Comment CULT NOT INDICATED Urine Opiates Screen NEG Urine Barbiturates Screen NEG Urine Amphetamines Screen NEG Urine Benzodiazepines Screen NEG Urine Cocaine Screen NEG Urine Cannabinoids Screen NEG Blood Urea Nitrogen 12 MG/DL Creatinine 1.44 MG/DL Random Glucose 142 MG/DL Calcium Level 8.7 MG/DL Sodium Level 142 MEQ/L Potassium Level 3.5 MEQ/L Chloride Level 107 MEQ/L Carbon Dioxide Level 25.8 MEQ/L Anion Gap 9 MEQ/L Estimat Glomerular Filtration Rate 49 ML/MIN Hemoglobin A1c 5.7 % Triglycerides Level 85 MG/DL Cholesterol Level 105 MG/DL LDL Cholesterol 31 MG/DL HDL Cholesterol 57.2 MG/DL Cholesterol/HDL Ratio 1.83 RATIO Mental Status Examination Appearance: Appropriate Consciousness: Alert Orientation: Person, Place Motor Activity: Abnormal gait Speech: Unremarkable Language: Adequate Fund of Knowledge: Inadequate Attention and Concentration: Adequate Memory: Impaired Mood: Appropriate Affect: Appropriate Thought Process & Associations: Intact Thought Content: Appropriate Hallucination Type: Auditory (Running water since shunt placement) Delusion Type: None Suicidal Ideation: No Suicidal Plan: No Suicidal Intention: No Homicidal Ideation: No Homicidal Plan: No Homicidal Intention: No Insight: Poor Judgment: Impulsive Assessment & Plan Problem List: (1) 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 Patient is a 67-year-old past psychiatric history of depression, hallucinations, seclusive chest pain previous CVA,NEWSPAPER REPORTER shunt placement, CAD with bypass, COPD, was brought under ex parte revised due to recent behavioral changes and concern for self-care neglect along with neurocognitive deficits which patient was admitted to the inpatient psychiatry for further management. Patient this time with memory deficits and likely cognitive deficits secondary to vascular injury from previous strokes which patient engaged in poor judgment, risky behavior along with increased use recently. We will start patient on quetiapine 12.5 p.o. twice daily for mood stabilization and to address behavioral disturbances once consent for medications is obtained from patient's if she agrees to act as health care surrogate. Recent EKG showed QTc 389 ms. We will request neurology consult along with neuropsychology consult. Hospitalist input appreciated. I have attempted to reach patient's Shannon Gtz via telephone but was not able to reach her but I did leave a generic voicemail to have her call back. Petition for involuntary hospitalization started, second opinion requested. Social work intervention for psychosocial assessment. Discharge Planning To be determined. Boyd Hernandez MD August 02, 2017 15:56
[2017-08-02 16:00] VITALS: BP 126/70; PULSE 78; RESP 12
--- NOTE | 2017-08-02 18:08 | EKG ---
Date Performed: 08/02/2017 Time Performed: 09:03:32 PTAGE: 67 years EKG: Sinus rhythm NONSPECIFIC T-WAVE ABNORMALITY BORDERLINE ECG PREVIOUS TRACING : 07/29/2017 01.10 Since the previous tracing, no significant change noted DOCTOR: Amy Arriola Interpretating Date/Time 08/02/2017 18:07:21
--- NOTE | 2017-08-02 20:34 | RADRPT ---
EXAM DATE/TIME: 08/02/2017 20:19 [place] COMPARISON: CT BRAIN W/O CONTRAST, July 29, 2017, 1:24. INDICATIONS : Syncopal episode, hit head. RADIATION DOSE: 39.90 CTDIvol (mGy) MEDICAL HISTORY : Cerebrovascular disease. Cardiovascular disease Hypertension.Dementia, Triana's syndrome SURGICAL HISTORY : Gastric bypass. ENCOUNTER: Initial ACUITY: 1 day PAIN SCALE: 4/10 LOCATION: cranial TECHNIQUE: Multiple contiguous axial images were obtained of the head. Using automated exposure control and adj ustment of the mA and/or kV according to patient size, radiation dose was kept as low as reasonably a chievable to obtain optimal diagnostic quality images. DICOM format image data is available electro nically for review and comparison. FINDINGS: CEREBRUM: The ventricles are stable and midline in position. There is a right ventricular catheter in place and unchanged in position. There is an old infarct involving the right occipital lobe. There are old sta ble infarcts involving the left basal ganglia. No mass effect or midline shift. There is a new tiny a [place] of spontaneously dense material high along the left cerebral vertex. Suspicious for a small punct ate contusion. POSTERIOR FOSSA: The cerebellum and brainstem are intact. The 4th ventricle is midline. The cerebellopontine angle i s unremarkable. EXTRACRANIAL: The visualized portion of the orbits is intact. SKULL: Stable chronic changes. No acute bony fracture. CONCLUSION: 1. New tiny area of spontaneously dense material high along the left cerebral vertex suspicious for s mall punctate hemorrhagic contusion. 2. Stable old infarcts in the right occipital lobe and left basal ganglia 3. Stable right ventricular catheter in place. Vitaliy Blanton MD on August 02, 2017 at 20:27 Board Certified Radiologist. This report was verified electronically.
[2017-08-02] MEDS: ATORVASTATIN 20 MG TAB PO SCH (21:00)
[2017-08-02] MEDS: QUEtiapine FUMARATE 25 MG TAB PO SCH (21:03)
[2017-08-02] MEDS: MONTELUKAST SODIUM 10 MG TAB PO SCH (21:03)
[2017-08-03 05:48] VITALS: BP 136/85; PULSE 63; RESP 18; TEMP 97.2; O2SAT 97
[2017-08-03] MEDS: QUEtiapine FUMARATE 25 MG TAB PO SCH ×2 (08:38→21:10)
[2017-08-03] MEDS: PANTOPRAZOLE SOD 40 MG DELAYED RELEASE TAB PO SCH (08:38)
[2017-08-03] MEDS: MULTIVITAMIN TAB PO SCH (08:40)
[2017-08-03] MEDS: POTASSIUM CHLORIDE 10 MEQ CAP PO SCH (08:41)
[2017-08-03] MEDS: NIFEdipine 30 MG SUSTAINED RELEASE TAB PO SCH (08:42)
[2017-08-03] MEDS: GABAPENTIN 400 MG CAP PO SCH ×2 (08:42→21:10)
[2017-08-03] MEDS: metFORMIN HCL 500 MG TAB PO SCH (08:42)
[2017-08-03] MEDS: ASPIRIN EC 81 MG TABEC PO SCH (08:42)
[2017-08-03] MEDS: CALCIUM/VITAMIN D 250 MG/125 U TAB PO SCH ×2 (08:43→21:10)
[2017-08-03] MEDS: levETIRAcetam 500 MG TAB PO SCH ×2 (08:43→21:10)
[2017-08-03] MEDS: CYANOCOBALAMIN 1,000 MCG TAB PO SCH (08:43)
--- NOTE | 2017-08-03 12:29 | HHI.PYPN ---
Subjective Remarks Patient was seen and case discussed with nursing. Patient had a fall last night and the CAT scan was done. Per nursing, he was evaluated by neurology and the medical team is due to see him today. He is alert and oriented 4. No confusion noted no pain. No motor dysfunction. Insight remains poor concerning his behavior. Patient says his is secured to guns at home. He feels angry at his for "getting me in here." Denies any plans or intent of hurting himself or others Mental Status Examination Appearance: Appropriate Consciousness: Alert Orientation: Person, Place Motor Activity: Abnormal gait Speech: Unremarkable Language: Adequate Fund of Knowledge: Inadequate Attention and Concentration: Adequate Memory: Impaired Mood: Appropriate Affect: Appropriate Thought Process & Associations: Intact Thought Content: Appropriate Hallucination Type: Auditory (Denies today) Delusion Type: None Suicidal Ideation: No Suicidal Plan: No Suicidal Intention: No Homicidal Ideation: No Homicidal Plan: No Homicidal Intention: No Insight: Poor Judgment: Impulsive Results Vitals/IOs Vital Signs Date Time Temp Pulse Resp B/P (MAP) Pulse Ox O2 Delivery O2 Flow Rate FiO2 08/03/17 05:48 97.2 63 18 136/85 (102) 97 08/01/17 17:55 Room Air Assessment & Plan Problem List: (1) 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 Inpt. Patient would decompensate in a less restrictive setting Brady Smith DO August 03, 2017 12:29
[2017-08-03] MEDS ORDERED: DEXTROSE 50% IN WATER 50 ML VIAL(D50) IV PUSH PRN (13:45)
--- NOTE | 2017-08-03 15:20 | HHI.PR ---
Subjective Remarks Follow up on patient with DM, hx of CVA, ventricular catheter. Patient seen and examined. Patient fell last night in psych. CT Head shows new tiny area of spontaneously dense material high along the left cerebral vertex suspicious for small punctate hemorrhagic contusion, stable old infarcts in the right occipital lobe and left basal ganglia and stable right ventricular catheter in place. Patient reports he gets dizzy and lightheaded with standing. He denies any headache or vision changes. He denies any associated palpitations, chest pain or shortness of breath. He denies any nausea or vomiting. He denies any bowel or bladder incontinence. He denies any numbness or tingling or weakness. Objective Vitals Vital Signs Date Time Temp Pulse Resp B/P (MAP) Pulse Ox O2 Delivery O2 Flow Rate FiO2 08/03/17 05:48 97.2 63 18 136/85 (102) 97 08/02/17 16:00 78 12 126/70 (88) I/O 08/02/17 08/02/17 08/02/17 08/03/17 08/03/17 08/03/17 07:00 15:00 23:00 07:00 15:00 23:00 Intake Total 120 ml Balance 120 ml Intake Oral 120 ml Result Diagram: 08/01/17 1432 08/02/17 0836 Imaging Last Impressions Head CT 08/02/17 0000 Signed Impressions: Service Date/Time: Wednesday, August 02, 2017 20:19 - CONCLUSION: 1. New tiny area of spontaneously dense material high along the left cerebral vertex suspicious for small punctate hemorrhagic contusion. 2. Stable old infarcts in the right occipital lobe and left basal ganglia 3. Stable right ventricular catheter in place. Vitaliy Blanton MD Objective Remarks GENERAL: This is a well-nourished, well-developed male patient, in no apparent distress. Asleep but easily awakens to voice. No facial asymmetry. SKIN: Warm and dry. +ecchymosis right eye HEAD: Atraumatic. Normocephalic. No temporal or scalp tenderness. EYES: Pupils equal round and reactive. EOMI. Sclera anicteric. No injection or drainage. ENT: Nose without bleeding or purulent drainage. Airway patent. MMM. NECK: Trachea midline. Supple, nontender, no meningeal signs. CARDIOVASCULAR: Regular rate and rhythm without murmurs, gallops, or rubs. No JVD. RESPIRATORY: Clear to auscultation. Breath sounds equal bilaterally. No wheezes , rales, or rhonchi. GASTROINTESTINAL: Abdomen soft, non-tender, nondistended. No guarding. MUSCULOSKELETAL: Extremities without clubbing, cyanosis, or edema. NEUROLOGICAL: Awake and alert. He is oriented to self, place and year - he cannot tell me the month or date. Cranial nerves II through XII grossly intact. Motor and sensory function grossly intact BUE and BLEs. No focal neurological deficits. Normal speech. PSYCHIATRIC: Calm and cooperative. 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 Gtz is a 67-year-old male with a history of CVA, diabetes mellitus, hypertension who is currently under the care of psychiatry unit. Hospitalist service was consulted for medical management. Behavioral disturbance -management per psychiatry -obtain B12 level, TSH and RPR History of hemorrhagic CVA s/p fall on psych unit yesterday - CT Head reveals new tiny area of spontaneously dense material high along the left cerebral vertex suspicious for small punctate hemorrhagic contusion, stable old infarcts in the right occipital lobe and left basal ganglia and stable right ventricular catheter in place. Status post SOUND EQUIPMENT MECH[employer]IC shunt by Dr. Trejo -Consult Neurosurgery, appreciate assistance -Neurology consulted by primary team. EEG ordered, will follow up on results -Continue aspirin 81 mg daily, Keppra 1000 mg p.o. every 12 hours. - hold ASA for now given new hemorrhage -continue Lipitor 20 mg daily. -obtain orthostatic BP measurements -fall and seizure precautions -neuro checks Hypertension, improved -continue patient on nifedipine 30 mg daily -May consider JAGUAR inhibitor or ARB in future. Diabetes mellitus -accucheks and ISS -Patient's creatinine is 1.44 and estimated GFR 49. We will start metformin 500 mg daily. Can be titrated up. CKD stage III -appears to be stable. Will monitor periodically. Full code. Ambulation. Discussed with patient, nursing staff and Ana María Odom August 03, 2017 15:20
--- NOTE | 2017-08-03 16:49 | MG ---
cc: Stephanie Neves MD DATE OF : 1950 AGE: [age] years old. EEG NUMBER: [id number] ROOM: 2612 NOTE: With photic done. Awake, drowsy asleep. Last EEG on 06/02/2016 showed mild slowing, left possibly more than right. Came is an ex parte for psych eval, inappropriate contact with family member, some increased alcohol, stealing from stores. 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 MEDICATIONS: 1. Procardia 2. Glucophage. 3. Protonix. 4. Aspirin. 5. Vitamins. DESCRIPTION OF RECORD: The patient has some mild slowing, but at times he has normal output that is more around the 6 Hz finding, which is a higher theta frequency. Some mild artifact. EKG looks sinus. Symmetrical. At times, there may be some possible slowing over the left compared to the right, but not very pronounced. Photic stimulation does elicit a driving response. IMPRESSION: Just some mild slowing, possibly more left than right, high theta range without any epileptiform features. Could be due to structural lesion with slowing on one side, acute or chronic versus more likely chronic since it was seen in the past. Also, there are no epileptic findings. The slowing can also be seen with medicine effect, encephalopathic process and/or dementia. Clinical correlation. Stephanie Neves MD DF/EDUARDO , 04:28 PM , 04:48 PM
[2017-08-03] MEDS: INSULIN ASPART SUPPLEMENTAL SCALE SQ SCH ×2 (17:00→21:00)
--- NOTE | 2017-08-03 17:29 | PD.CONS ---
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 Patient was found sitting in hospital bed noted become cooperative. Patient is alert and oriented to self in the ER. Patient reports he has been having difficulty with memory since the stroke but denies having had any behavioral changes that he has noticed. Patient reported being compliant with medications and see reports his assists him with this. Patient reports sad regarding his 's "always takes her girlfriend with her everywhere". Patient states that he had been left alone for days at a time when she leaves with her girlfriend. Patient reports no changes sleep, appetite or concentration but did note difficulty remembering as stated above, and also decrease in energy. She denies any SI or HI, no perception disturbances or delusional material elicited. Patient patient states that he had called EMS himself because his left him alone for 5 days. Patient denies having ever been physically aggressive toward life although he did note having verbal arguments with her. Patient this recent increase in alcohol use, and this stealing from stores but was not able to provide explanation, as well as having spoken to prostitutes recently but denies any sexual involvement. CT brain was done. Neurosurgical consultation requested Past Family Social History Allergies: Coded Allergies: cephalexin (Verified Allergy, Severe, EDEMA THROAT, 08/01/17) lovastatin (Verified Allergy, Severe, 08/01/17) sertraline (Verified Allergy, Severe, "VERY SEVERE OFF BALANCE AND DIARRHEA", 08/01/17) Uncoded Allergies: CLINORIL (Allergy, Unknown, 09/04/16) Past Medical History Coronary artery disease status post CABG and stent placements. Hemorrhagic stroke 2017 status post VIDEO SYSTEM REPAIRER shunt placement Triana's esophagus Diabetes mellitus Anxiety Asthma, COPD Hyperlipidemia Past Surgical History CABG triple bypass, stent placement, VIDEO SYSTEM REPAIRER shunt Active Ordered Medications Current Medications Clonidine (Catapres) 0.1 mg ONCE ONCE PO Last administered on 08/01/17 18:30 ; Start 08/01/17 at 18:30; Stop 08/01/17 at 18:43; Status DC Lorazepam (Ativan) 1 mg ONCE ONCE PO Last administered on 08/01/17 18:29; Start 08/01/17 at 18:30; Stop 08/01/17 at 18:43; Status DC Acetaminophen (Tylenol) 650 mg Q4H PRN PO Pain 1-5 or Temp >101F Last administered on 08/03/17at 15:42; Start 08/01/17 at 21:00 Magnesium Hydroxide (Milk Of Magnesia Liq) 30 ml DAILY PRN PO CONSTIPATION; Start 08/01/17 at 21:00 Al Hydrox/Mg Hydrox/Simethicone (Mag-Al Plus Susp Liq) 30 ml Q6H PRN PO DYSPEPSIA; Start 08/01/17 at 21:00 Aspirin (Ecotrin Ec) 81 mg DAILY PO Last administered on 08/03/17 08:42; Start 08/02/17 at 09:00; Status Future Hold Cyanocobalamin (Vitamin B12) 6,000 mcg DAILY PO ; Start 08/02/17 at 09:00 Gabapentin (Neurontin) 800 mg BID PO Last administered on 08/03/17at 08:42; Start 08/02/17 at 09:00 Levetriacetam (Keppra) 1,000 mg Q12HR PO Last administered on 08/03/17 08:43; Start 08/01/17 at 21:45 Montelukast Sodium (Singulair) 10 mg HS PO Last administered on 08/02/17 21:03 ; Start 08/01/17 at 21:00 Potassium Chloride (KCl) 10 meq DAILY PO Last administered on 08/03/17at 08:41; Start 08/02/17 at 09:00 Non-Formulary Medication 1 tab BID PO ; Start 08/01/17 at 21:00; Status UNV Non-Formulary Medication 1 tab DAILY PO ; Start 08/02/17 at 09:00; Status UNV Non-Formulary Medication 40 mg DAILY PO ; Start 08/02/17 at 09:00; Status UNV Calcium/Vitamin D (Oscal-D 250-125) 500 mg BID PO Last administered on at 08:43; Start 08/02/17 at 09:00 Multivitamins (Theragran) 1 tab DAILY PO Last administered on 08/03/17at 08:40; Start 08/02/17 at 09:00 Pantoprazole Sodium (Protonix) 40 mg DAILY PO Last administered on 08/03/17at 08 :38; Start 08/02/17 at 09:00 Nifedipine (Procardia Xl) 30 mg DAILY PO Last administered on 08/03/17at 08:42; Start 08/03/17 at 09:00 Nifedipine (Procardia Xl) 30 mg ONCE ONCE PO Last administered on 08/02/17at 13 :30; Start 08/02/17 at 13:30; Stop 08/02/17 at 13:31; Status DC Atorvastatin Calcium (Lipitor) 20 mg HS PO Last administered on 08/02/17at 21:00 ; Start 08/02/17 at 21:00 Metformin HCl (Glucophage) 500 mg DAILY PO Last administered on 08/03/17at 08:42 ; Start 08/03/17 at 09:00 Diphenhydramine HCl (Benadryl) 50 mg HS PRN PO INSOMNIA; Start 08/02/17 at 15: 00 Lorazepam (Ativan) 0.5 mg Q6H PRN PO MODERATE TO SEVERE ANXIETY; Start at 15:00 Quetiapine Fumarate (SEROquel) 12.5 mg BID PO Last administered on 08/03/17at 08 :38; Start 08/02/17 at 21:00 Dextrose (D50w (Vial) Inj) 50 ml UNSCH PRN IV PUSH HYPOGLYCEMIA-SEE COMMENTS; Start 08/03/17 at 13:45 Insulin Aspart (NovoLOG SUPPLEMENTAL SCALE) 1 ACHS SLIDING SCALE SQ ; Start at 17:00 Family History No family history of Alzheimer's or Parkinson's. Social History Patient reports moderate alcohol use. Denies using tobacco or illicit drugs. Physical Exam Vital Signs Vital Signs Date Time Temp Pulse Resp B/P (MAP) Pulse Ox O2 Delivery O2 Flow Rate FiO2 08/03/17 05:48 97.2 63 18 136/85 (102 97 Physical Exam NEUROLOGIC: He is awake and alert. He knows he is in the hospital. He tells me today's date is on the board. He knew who the president was. He is unable to spell world backwards. He can tell me there are 5 quarters in a dollar 25. He cannot really tell me where his son is at. He states, "on the other side". He does not have a very good insight on why he is here. He is stating that his put him here because she is never home. He denies any other symptoms. Motor joya, he has some adequate strength in his upper extremities. He is able to get out of a chair without significant difficulty. Tone is intact. He does have some small steps, but not consistent with shuffling. He uses a rolling walker. Sensory is limited to his neuropathy due to chronic distal sensiry loss. LUNGS. cLEAR Heart. regular rhythm and rate Skin warm and dry Laboratory Laboratory Tests Test 08/03/17 08:36 Result Diagram: 08/01/17 1432 08/02/17 0836 Attending Statement I reviewed his radiological studies Last [address] 08/02/17 0000 Signed Impressions: Service Date/Time: Wednesday, August 02, 2017 20:19 - CONCLUSION: 1. New tiny area of spontaneously dense material high along the left cerebral vertex suspicious for small punctate hemorrhagic contusion. 2. Stable old infarcts in the right occipital lobe and left basal ganglia 3. Stable right ventricular catheter in place. Vitaliy Blanton MD Continue neuro checks. Nonoperative treatment There is no clinical evidence of shunt malfunction at this time History of hemorrhagic stroke, VIDEO SYSTEM REPAIRER shunt. Normal B12, TSH, and RPR. EEG did not show any epileptic activity psychiatric history of depression, hallucinations, seclusive chest pain previous CVA,VIDEO SYSTEM REPAIRER shunt placement, CAD with bypass, COPD, was brought under ex parte revised due to recent behavioral changes and concern for self-care neglect along with neurocognitive deficits which patient was admitted to the inpatient psychiatry for further management. Pulmonary.. Continue aggressive pulmonary toilette, nasotracheal suction, and breathing treatments with nebulizers. Nutrition. NPO Renal. monitor closely urine output, BUN and creatinine Endocrine. Monitor serial Acu checks and SSI as needed in detail ID monitor for signs of infection Protonix for stress ulcer prophylaxis Francisco hose and SCD's for DVT prophylaxis. Maxx Trejo MD August 03, 2017 17:29
[2017-08-03 17:58] VITALS: BP 165/79; PULSE 61; RESP 18; TEMP 97.9; O2SAT 98
[2017-08-03] MEDS: ATORVASTATIN 20 MG TAB PO SCH (21:10)
[2017-08-03] MEDS: MONTELUKAST SODIUM 10 MG TAB PO SCH (21:10)
[2017-08-04 06:11] VITALS: BP_SYST 126; BP_SYST 127; BP_SYST 145; BP_DIAS 72; BP_DIAS 73; PULSE 59; RESP 18; TEMP 97.8; O2SAT 97
[2017-08-04] MEDS: INSULIN ASPART SUPPLEMENTAL SCALE SQ SCH ×4 (08:00→20:48)
[2017-08-04] MEDS: CYANOCOBALAMIN 1,000 MCG TAB PO SCH (09:00)
[2017-08-04] MEDS: levETIRAcetam 500 MG TAB PO SCH ×2 (09:23→20:44)
[2017-08-04] MEDS: PANTOPRAZOLE SOD 40 MG DELAYED RELEASE TAB PO SCH (09:23)
[2017-08-04] MEDS: NIFEdipine 30 MG SUSTAINED RELEASE TAB PO SCH (09:23)
[2017-08-04] MEDS: GABAPENTIN 400 MG CAP PO SCH ×2 (09:24→20:45)
[2017-08-04] MEDS: CALCIUM/VITAMIN D 250 MG/125 U TAB PO SCH ×2 (09:24→20:45)
[2017-08-04] MEDS: QUEtiapine FUMARATE 25 MG TAB PO SCH ×2 (09:24→20:45)
[2017-08-04] MEDS: MULTIVITAMIN TAB PO SCH (09:24)
[2017-08-04] MEDS: metFORMIN HCL 500 MG TAB PO SCH (09:25)
[2017-08-04] MEDS: POTASSIUM CHLORIDE 10 MEQ CAP PO SCH (09:25)
--- NOTE | 2017-08-04 12:55 | MB ---
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 HISTORY OF PRESENT ILLNESS: Mr. Gtz is a 67-year-old man who lives with his . He has a couple of adult children with a history of depression. No previous psychiatric admissions or abnormal behaviors who was brought in the ED under ex parte in which he was abusive towards apparently his , possibly some increased alcohol use, not maintaining his hygiene, stealing from stores. 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 Scales. He has a history of COPD, heart disease with bypass, hypertension, some residual left-sided weakness and hypertension. ALLERGIES: SERTRALINE, CEPHALEXIN, LOVASTATIN, CLINORIL. SOCIAL HISTORY: He is . He lives with his . MEDICATIONS: His active medicines at home are: 1. Keppra 1000 mg q. 12 hours. 2. Multivitamins. 3. Potassium. 4. Gabapentin for his neuropathy 800 mg 3 times a day. 5. Nitroglycerin. 6. Baby aspirin. 7. Aricept 5 mg at night. 8. CoQ10. 9. B12. 10. Calcium. 11. Fluoxetine. 12. Potassium. 13. Alprazolam. 14. Atorvastatin. 15. [place]. 16. Montelukast. 17. Omeprazole. 18. Diabetes. 19. Possible diabetic peripheral neuropathy. PHYSICAL EXAMINATION: VITAL SIGNS: Temperature is 97.8, pulse 59, respiratory rate 18, blood pressure supine 145/72, standing 127/73, sating at 97% on room air. NEUROLOGIC: He is awake and alert. He knows he is in the hospital. He tells me today's date is on the board. He knew who the president was. He is unable to spell world backwards. He can tell me there are 5 quarters in a dollar 25. He cannot really tell me where his son is at. He states, "on the other side". He does not have a very good insight on why he is here. He is stating that his put him here because she is never home. He denies any other symptoms. Motor joya, he has some adequate strength in his upper extremities. He is able to get out of a chair without significant difficulty. Tone is intact. He does have some small steps, but not consistent with shuffling. He uses a rolling walker. Sensory is limited to his neuropathy. LABORATORY DATA: Reviewed. His CBC, MCV is a bit low at 78.5. Chemistries: B12 is 1454, TSH is 1300. Lipids: Cholesterol 105, LDL 31, HDL 57.2 and his triglycerides are 85. His hemoglobin A1c is 5.7, creatinine 1.44, GFR 49. Tox screen: Basically unremarkable. Urine: Small blood. Culture was not indicated. RPR is nonreactive. IMAGING: CT head shows new tiny dense material along the left cerebral vertex suspicious for a small punctate hemorrhagic contusion. Old infarcts in the right occipital and left basal ganglia. There is a stable right ventricular catheter in place. The EEG showed some mild slowing left possibly more than right, but otherwise no epileptiform features. IMPRESSION: This is a 67-year-old man with most likely a dementia process vascular in nature. History of hemorrhagic stroke, FLOORING SALESPERSON shunt. Normal B12, TSH, and RPR. EEG did not show any epileptic activity. At this point in time neurologically, I don't believe there is anything new going on. I don't believe he needs an MRI unless neurosurgery thinks so. I am not sure if his shunt, at that point, has to be reprogrammed. I will defer to neurosurgery, but neurologically no other testing is indicated. PLAN: Continue current care. Stephanie Neves MD DF/DL , 12:30 PM , 12:54 PM
--- NOTE | 2017-08-04 13:56 | HHI.PR ---
Subjective Remarks Follow up on patient with DM, hx of CVA, s/p fall with small punctate hemorrhagic contusion. Patient seen and examined. Patient reports he is feeling well. He denies any complaints of headache, dizziness or vision changes. Denies any fever or chills. Denies any chest pain or shortness of breath. Denies any nausea, vomiting or abdominal pain. Discussed with nursing staff, no acute issues noted. Objective Vitals Vital Signs Date Time Temp Pulse Resp B/P (MAP) Pulse Ox O2 Delivery O2 Flow Rate FiO2 08/04/17 06:11 97.8 59 18 145/72 (96) 97 126/72 (90) 127/73 (91) 08/03/17 17:58 97.9 61 18 165/79 (107) 98 I/O 08/03/17 08/03/17 08/03/17 08/04/17 08/04/17 08/04/17 07:00 15:00 23:00 07:00 15:00 23:00 Intake Total 240 ml 150 ml Balance 240 ml 150 ml Intake Oral 240 ml 150 ml # Voids 2 Result Diagram: 08/01/17 1432 08/02/17 0836 Imaging Last Impressions Head CT 08/02/17 0000 Signed Impressions: Service Date/Time: Wednesday, August 02, 2017 20:19 - CONCLUSION: 1. New tiny area of spontaneously dense material high along the left cerebral vertex suspicious for small punctate hemorrhagic contusion. 2. Stable old infarcts in the right occipital lobe and left basal ganglia 3. Stable right ventricular catheter in place. Vitaliy Blanton MD Objective Remarks GENERAL: This is a well-nourished, well-developed male patient, in no apparent distress. Awake and alert. Lying in bed. SKIN: Warm and dry. +ecchymosis right eye HEAD: Atraumatic. Normocephalic. EYES: EOMI. Sclera anicteric. No injection or drainage. ENT: Nose without bleeding or purulent drainage. Airway patent. MMM. NECK: Trachea midline. Supple, nontender, no meningeal signs. CARDIOVASCULAR: Regular rate and rhythm without murmurs, gallops, or rubs. No JVD. RESPIRATORY: Clear to auscultation. Breath sounds equal bilaterally. No wheezes , rales, or rhonchi. GASTROINTESTINAL: Abdomen soft, non-tender, nondistended. No guarding. MUSCULOSKELETAL: Extremities without clubbing, cyanosis, or edema. NEUROLOGICAL: Awake and alert. He is oriented to self, place and year - he cannot tell me the month or date. Cranial nerves II through XII grossly intact. Motor and sensory function grossly intact BUE and BLEs. No focal neurological deficits. Normal speech. PSYCHIATRIC: Calm and cooperative. 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 Gtz is a 67-year-old male with a history of CVA, diabetes mellitus, hypertension who is currently under the care of psychiatry unit. Hospitalist service was consulted for medical management. Behavioral disturbance -management per psychiatry -B12 level 1454, TSH within normal limits, RPR nonreactive History of hemorrhagic CVA s/p fall on psych unit yesterday - CT Head reveals new tiny area of spontaneously dense material high along the left cerebral vertex suspicious for small punctate hemorrhagic contusion, stable old infarcts in the right occipital lobe and left basal ganglia and stable right ventricular catheter in place. Status post [employer] shunt by Dr. Trejo -Consult Neurosurgery, appreciate assistance -Neurology following, no further testing. EEG without epileptic activity -Continue aspirin 81 mg daily, Keppra 1000 mg p.o. every 12 hours. - hold ASA for now given new hemorrhage -continue Lipitor 20 mg daily. -Orthostatic BP measurements negative but did show 19mmHg drop. Continue to follow. -fall and seizure precautions -neuro checks Hypertension, improved -continue patient on nifedipine 30 mg daily -Continue to monitor BP and adjust treatment accordingly Diabetes mellitus Blood sugars well controlled -accucheks and ISS -Patient's creatinine is 1.44 and estimated GFR 49. Started on metformin 500 mg daily, continue. Can be titrated up. CKD stage III -appears to be stable. -Will monitor periodically -Avoid nephrotoxic agents Full code. Ambulation. Discussed with patient, nursing staff and Ana María Castro August 04, 2017 13:56
--- NOTE | 2017-08-04 16:16 | HHI.NSPN ---
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 Patient was found sitting in hospital bed noted become cooperative. Patient is alert and oriented to self in the ER. Patient reports he has been having difficulty with memory since the stroke but denies having had any behavioral changes that he has noticed. Patient reported being compliant with medications and see reports his assists him with this. Patient reports sad regarding his 's "always takes her girlfriend with her everywhere". Patient states that he had been left alone for days at a time when she leaves with her girlfriend. Patient reports no changes sleep, appetite or concentration but did note difficulty remembering as stated above, and also decrease in energy. She denies any SI or HI, no perception disturbances or delusional material elicited. Patient patient states that he had called EMS himself because his left him alone for 5 days. Patient denies having ever been physically aggressive toward life although he did note having verbal arguments with her. Patient this recent increase in alcohol use, and this stealing from stores but was not able to provide explanation, as well as having spoken to prostitutes recently but denies any sexual involvement. CT brain was done. Neurosurgical consultation requested 08/04: Resting comfortably in bed, appears pleasant, denies headaches, vomiting, focal weakness. Labs, Micro, & Vital Signs Results Date Time Temp Pulse Resp B/P (MAP) Pulse Ox O2 Delivery O2 Flow Rate FiO2 08/04/17 06:11 97.8 59 18 145/72 (96) 97 126/72 (90) 127/73 (91) 08/03/17 17:58 97.9 61 18 165/79 (107) 98 08/05/17 07:00 Intake Total 150 ml Balance 150 ml Constitutional Vital Signs Date Time Temp Pulse Resp B/P (MAP) Pulse Ox O2 Delivery O2 Flow Rate FiO2 08/04/17 06:11 97.8 59 18 145/72 (96) 97 126/72 (90) 127/73 (91) 08/03/17 17:58 97.9 61 18 165/79 (107) 98 08/05/17 07:00 Intake Total 150 ml Balance 150 ml Review of Systems Neurologic: DENIES: Headache, Localized weakness Physical Exam General: Mr. Gtz is in no acute distress, resting comfortably in his bed, calm, cooperative, smiling and pleasant HEENT: normocephalic, PROCED TECH shunt noted. Nonicteric sclera. Neuro: Alert, conversing. Cranial nerve examination demonstrates the pupils to be equal, round, and reactive to light. Extra-ocular movements are intact. Facial motor are normal and symmetrical. Gross hearing is intact, bilaterally. The uvula is midline and elevates symmetrically with the soft palate. Motor: moving all four extremities. Sensory intact to light touch. Neck is soft and supple. Musculoskeletal: no obvious deformities. Muscle testing reveals normal bulk and tone overall without rigidity, spasticity, fasciculations, or atrophy. Heart: regular rate rhythm Lungs: clear, no wheezing Skin: warm, dry. no cyanosis or erythema Medications Current Medications Current Medications Medications (Trade) Dose Ordered Sig/Chaz Route PRN Reason Start Time Stop Time Status Last Admin Dose Admin Acetaminophen (Tylenol) 650 mg Q4H PRN PO Pain 1-5 or Temp >101F 08/01/17 21:00 08/03/17 15:42 Magnesium Hydroxide (Milk Of Magnesia Liq) 30 ml DAILY PRN PO CONSTIPATION 08/01/17 21:00 Al Hydrox/Mg Hydrox/Simethicone (Mag-Al Plus Susp Liq) 30 ml Q6H PRN PO DYSPEPSIA 08/01/17 21:00 Aspirin (Ecotrin Ec) 81 mg DAILY PO 08/02/17 09:00 Future Hold 08/03/17 08:42 Cyanocobalamin (Vitamin B12) 6,000 mcg DAILY PO 08/02/17 09:00 Gabapentin (Neurontin) 800 mg BID PO 08/02/17 09:00 08/04/17 09:24 Levetriacetam (Keppra) 1,000 mg Q12HR PO 08/01/17 21:45 08/04/17 09:23 Montelukast Sodium (Singulair) 10 mg HS PO 08/01/17 21:00 08/03/17 21:10 Potassium Chloride (KCl) 10 meq DAILY PO 08/02/17 09:00 08/04/17 09:25 Calcium/Vitamin D (Oscal-D 250-125) 500 mg BID PO 08/02/17 09:00 08/04/17 09:24 Multivitamins (Theragran) 1 tab DAILY PO 08/02/17 09:00 08/04/17 09:24 Pantoprazole Sodium (Protonix) 40 mg DAILY PO 08/02/17 09:00 08/04/17 09:23 Nifedipine (Procardia Xl) 30 mg DAILY PO 08/03/17 09:00 08/04/17 09:23 Atorvastatin Calcium (Lipitor) 20 mg HS PO 08/02/17 21:00 08/03/17 21:10 Metformin HCl (Glucophage) 500 mg DAILY PO 08/03/17 09:00 08/04/17 09:25 Diphenhydramine HCl (Benadryl) 50 mg HS PRN PO INSOMNIA 08/02/17 15:00 Lorazepam (Ativan) 0.5 mg Q6H PRN PO MODERATE TO SEVERE ANXIETY 08/02/17 15:00 Quetiapine Fumarate (SEROquel) 12.5 mg BID PO 08/02/17 21:00 08/04/17 09:24 Dextrose (D50w (Vial) Inj) 50 ml UNSCH PRN IV PUSH HYPOGLYCEMIA-SEE COMMENTS 08/03/17 13:45 Insulin Aspart (NovoLOG SUPPLEMENTAL SCALE) 1 ACHS SLIDING SCALE SQ 08/03/17 17:00 Medical Decision Making MDM Remarks 67-year-old male with normal pressure hydrocephalus, ventriculoperitoneal shunt placement admitted for psychiatric evaluation CT brain shows small punctate left cortical hemorrhagic contusion without mass- effect or midline shift Plan Plan Remarks nonsurgical management continue psychiatric treatment neurology consultation Areli Michel August 04, 2017 16:16
--- NOTE | 2017-08-04 17:12 | HHI.PYPN ---
Subjective Remarks Patient seen for follow-up, chart reviewed. Discussion nursing staff reported the patient noted with sad affect, denies patient was found in his cell phone regarding child abuse allegations, feels he cannot care for himself at home, feeling depressed, denying suicide ideations. Patient was found in the room noted B, cooperative. Patient states he is sleeping "okay", reports feeling sad that "my stuck me in here". Patient denies any suicidal homicidal ideations, he states that his had visited but did not elaborate. Patient continues to deny the allegations of pictures found on his cell phone. It is possible the patient may be facing criminal charges due to the patient was found. Review of Systems Except as stated in HPI: all other systems reviewed are Neg Mental Status Examination Appearance: Appropriate Consciousness: Alert Orientation: Person, Place Motor Activity: Abnormal gait Speech: Unremarkable Language: Adequate Fund of Knowledge: Inadequate Attention and Concentration: Adequate Memory: Impaired Mood: Sad Affect: Sad Thought Process & Associations: Intact Thought Content: Appropriate Hallucination Type: Auditory (Denies today) Delusion Type: None Suicidal Ideation: No Suicidal Plan: No Suicidal Intention: No Homicidal Ideation: No Homicidal Plan: No Homicidal Intention: No Insight: Poor Judgment: Impulsive Results Labs Test 08/04/17 08:37 Rapid Plasma Reagin NON-REACTIVE Vitals/IOs Vital Signs Date Time Temp Pulse Resp B/P (MAP) Pulse Ox O2 Delivery O2 Flow Rate FiO2 08/04/17 06:11 97.8 59 18 145/72 (96) 97 126/72 (90) 127/73 (91) 08/01/17 17:55 Room Air Intake and Output 08/04/17 08/04/17 08/05/17 08:00 16:00 00:00 Intake Total 150 ml Balance 150 ml Assessment & Plan Problem List: (1) 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 Patient to continue current treatment continue to monitor mood and behavior. Discharge planning in progress. Justification for Cont. Inpt. At risk for further decompensation if at lower level of care Discharge Planning To be determined. Boyd Hernandez MD August 04, 2017 17:12
[2017-08-04 17:41] VITALS: BP 136/74; PULSE 74; RESP 18; TEMP 98; O2SAT 95
[2017-08-04] MEDS: ATORVASTATIN 20 MG TAB PO SCH (20:44)
[2017-08-04] MEDS: MONTELUKAST SODIUM 10 MG TAB PO SCH (20:45)
[2017-08-05 06:00] VITALS: BP 156/82; PULSE 68; RESP 18; TEMP 96.7
[2017-08-05] MEDS: INSULIN ASPART SUPPLEMENTAL SCALE SQ SCH ×4 (07:17→20:55)
[2017-08-05] MEDS: CYANOCOBALAMIN 1,000 MCG TAB PO SCH (09:00)
[2017-08-05] MEDS: NIFEdipine 30 MG SUSTAINED RELEASE TAB PO SCH (09:00)
[2017-08-05] MEDS: POTASSIUM CHLORIDE 10 MEQ CAP PO SCH (09:00)
[2017-08-05] MEDS: CALCIUM/VITAMIN D 250 MG/125 U TAB PO SCH ×2 (09:00→20:57)
[2017-08-05] MEDS: QUEtiapine FUMARATE 25 MG TAB PO SCH ×2 (09:12→20:57)
[2017-08-05] MEDS: MULTIVITAMIN TAB PO SCH (09:12)
[2017-08-05] MEDS: levETIRAcetam 500 MG TAB PO SCH ×2 (09:12→20:57)
[2017-08-05] MEDS: GABAPENTIN 400 MG CAP PO SCH ×2 (09:12→20:56)
[2017-08-05] MEDS: metFORMIN HCL 500 MG TAB PO SCH (09:12)
[2017-08-05] MEDS: PANTOPRAZOLE SOD 40 MG DELAYED RELEASE TAB PO SCH (09:12)
--- NOTE | 2017-08-05 12:57 | HHI.PR ---
Subjective Remarks Follow-up visit for DM, hx, CVA, s/p fall with small punctate hemorrhage contusion. Spoke with nurse who does not report any concerns regarding patient. He is seen and examined in bed in no acute distress. He is awake alert, denies any headache, dizziness, N/V/D, cough, SOB or chest pain. He is voiding without dysuria and denies constipation. Objective Vitals Vital Signs Date Time Temp Pulse Resp B/P (MAP) Pulse Ox O2 Delivery O2 Flow Rate FiO2 08/05/17 06:00 96.7 68 18 156/82 (106) 08/04/17 17:41 98.0 74 18 136/74 (94) 95 I/O 08/04/17 08/04/17 08/04/17 08/05/17 08/05/17 08/05/17 07:00 15:00 23:00 07:00 15:00 23:00 Intake Total 150 ml Balance 150 ml Intake Oral 150 ml Result Diagram: 08/01/17 1432 08/02/17 0836 Imaging Last Impressions Head CT 08/02/17 0000 Signed Impressions: Service Date/Time: Wednesday, August 02, 2017 20:19 - CONCLUSION: 1. New tiny area of spontaneously dense material high along the left cerebral vertex suspicious for small punctate hemorrhagic contusion. 2. Stable old infarcts in the right occipital lobe and left basal ganglia 3. Stable right ventricular catheter in place. Vitaliy Blanton MD Objective Remarks GENERAL: This is a well-nourished, well-developed male patient, in no apparent distress. Awake and alert. Calm and cooperative. SKIN: Warm and dry. ecchymosis right eye, resolving HEAD: Normocephalic, with visible HIGH RIGGER shunt EYES: EOMI. No injection or drainage. ENT: Nose without bleeding. Airway patent. NECK: Trachea midline. Supple, nontender. CARDIOVASCULAR: Regular rate and rhythm without murmurs, gallops, or rubs. RESPIRATORY: Clear to auscultation. Breath sounds equal bilaterally. No wheezes , rales, or rhonchi. GASTROINTESTINAL: Abdomen soft, non-tender, nondistended. No guarding. MUSCULOSKELETAL: Extremities without clubbing, cyanosis, or edema. NEUROLOGICAL: Awake and alert. Oriented to self, place, year. Cranial nerves II through XII grossly intact. Motor and sensory function grossly intact. No focal neurological deficits. Normal speech. 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 Gtz is a 67-year-old male with a history of CVA, diabetes mellitus, hypertension who is currently under the care of psychiatry unit. Hospitalist service was consulted for medical management. Behavioral disturbance -management per psychiatry -B12 level 1454, TSH within normal limits, RPR nonreactive History of hemorrhagic CVA s/p fall on psych unit yesterday - CT Head reveals new tiny area of spontaneously dense material high along the left cerebral vertex suspicious for small punctate hemorrhagic contusion, stable old infarcts in the right occipital lobe and left basal ganglia and stable right ventricular catheter in place. Status post HIGH RIGGER shunt by Dr. Trejo -Consult Neurosurgery, appreciate assistance. No need for MRI per neurology at this time unless ordered by neurosurgery. My need to have evaluation of HIGH RIGGER shunt, to be determined by neurosurgery. -Neurology following, no further testing. EEG without epileptic activity -Continue Keppra 1000 mg p.o. every 12 hours. - hold ASA for now given new hemorrhage -continue Lipitor 20 mg daily. -Orthostatic BP measurements negative but did show 19mmHg drop. Continue to follow. -fall and seizure precautions -neuro checks Hypertension, improved -continue patient on nifedipine 30 mg daily -Continue to monitor BP and adjust treatment accordingly Diabetes mellitus Blood sugars well controlled -accucheks and ISS, BS well controlled -Patient's creatinine is 1.44 and estimated GFR 49. - Continue metformin 500 mg daily, continue. Can be titrated up. CKD stage III -appears to be stable. -Will monitor periodically -Avoid nephrotoxic agents Full code. Ambulation. Discussed with nurse. Abdullahi Daniels August 05, 2017 12:57
--- NOTE | 2017-08-05 17:01 | HHI.PYPN ---
Subjective Remarks Patient seen for follow, chart reviewed. Discussion nursing staff reported the patient has been pleasant, seclusive to room. Patient was found lying hospital bed noted to be calm, cooperative. Patient states that he was feeling "okay" reports feeling a little depressed as he states have been expecting his son to visit but has not come yet. Patient states he is unable to recall sons visits yesterday, alert and oriented to person and place only. Patient states I do not want to go back with my ". Patient denies any SI, HI, AVH or delusions at this time. Review of Systems Except as stated in HPI: all other systems reviewed are Neg Mental Status Examination Appearance: Appropriate Consciousness: Alert Orientation: Person, Place Motor Activity: Abnormal gait Speech: Unremarkable Language: Adequate Fund of Knowledge: Inadequate Attention and Concentration: Adequate Memory: Impaired Mood: Sad Affect: Sad Thought Process & Associations: Intact Thought Content: Appropriate Hallucination Type: Auditory (Denies today) Delusion Type: None Suicidal Ideation: No Suicidal Plan: No Suicidal Intention: No Homicidal Ideation: No Homicidal Plan: No Homicidal Intention: No Insight: Poor Judgment: Impulsive Results Vitals/IOs Vital Signs Date Time Temp Pulse Resp B/P (MAP) Pulse Ox O2 Delivery O2 Flow Rate FiO2 08/05/17 06:00 96.7 68 18 156/82 (106) 08/04/17 17:41 95 08/01/17 17:55 Room Air Assessment & Plan Problem List: (1) 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 Patient with no behavioral disturbances since admission. We will continue current treatment. Continue monitor mood and behavior. Discharge planning in progress. Justification for Cont. Inpt. At risk for decompensation at lower level of care. Discharge Planning To be determined. Boyd Hernandez MD August 05, 2017 17:01
[2017-08-05 18:07] VITALS: BP 142/69; PULSE 75; RESP 18; TEMP 98.8; O2SAT 98
[2017-08-05] MEDS: ATORVASTATIN 20 MG TAB PO SCH (20:57)
[2017-08-05] MEDS: MONTELUKAST SODIUM 10 MG TAB PO SCH (21:00)
[2017-08-06 06:00] VITALS: BP 142/87; PULSE 64; RESP 18; TEMP 97.4; O2SAT 96
[2017-08-06] MEDS: INSULIN ASPART SUPPLEMENTAL SCALE SQ SCH ×2 (08:00→12:00)
--- NOTE | 2017-08-06 08:46 | HHI.PR ---
Subjective Remarks Follow-up visit for DM, hx, CVA, s/p fall with small punctate hemorrhage contusion. Spoke with nurse who does not report any acute concerns. Patient is seen and examined ambulating in his room in no acute distress. He denies any fevers, chills, nausea, vomiting, diarrhea, headaches, dizziness, lightheadedness, visual changes, shortness of breath or cough. He states that his son and [id number] were supposed to come visit him today, is questioning why they have not seen him. He has no other acute complaints today. Objective Vitals Vital Signs Date Time Temp Pulse Resp B/P (MAP) Pulse Ox O2 Delivery O2 Flow Rate FiO2 08/06/17 06:00 97.4 64 18 142/87 (105) 96 08/05/17 18:07 98.8 75 18 142/69 (93) 98 I/O 08/05/17 08/05/17 08/05/17 08/06/17 08/06/17 08/06/17 07:00 15:00 23:00 07:00 15:00 23:00 Intake Total 840 ml Balance 840 ml Intake Oral 840 ml # Voids 2 2 # Bowel Movements 2 1 Result Diagram: 08/02/17 0836 Imaging Last Impressions Head CT 08/02/17 0000 Signed Impressions: Service Date/Time: Wednesday, August 02, 2017 20:19 - CONCLUSION: 1. New tiny area of spontaneously dense material high along the left cerebral vertex suspicious for small punctate hemorrhagic contusion. 2. Stable old infarcts in the right occipital lobe and left basal ganglia 3. Stable right ventricular catheter in place. Vitaliy Blanton MD Objective Remarks GENERAL: This is a well-nourished, well-developed male patient, in no apparent distress. Awake and alert. Calm and cooperative. SKIN: Warm and dry. ecchymosis right eye, resolved HEAD: Normocephalic, with visible DOZER OPERATOR shunt EYES: EOMI. No injection or drainage. ENT: Nose without bleeding. Airway patent. CARDIOVASCULAR: Regular rate and rhythm without murmurs, gallops, or rubs. RESPIRATORY: Clear to auscultation. Breath sounds equal bilaterally. No wheezes , rales, or rhonchi. GASTROINTESTINAL: Abdomen soft, non-tender, nondistended. No guarding. MUSCULOSKELETAL: Extremities without clubbing, cyanosis, or edema. NEUROLOGICAL: Awake and alert. Oriented to self, place, year. Cranial nerves II through XII grossly intact. Motor and sensory function grossly intact. No focal neurological deficits. Normal speech. 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 Gtz is a 67-year-old male with a history of CVA, diabetes mellitus, hypertension who is currently under the care of psychiatry unit. Hospitalist service was consulted for medical management. Behavioral disturbance -management per psychiatry -B12 level 1454, TSH within normal limits, RPR nonreactive History of hemorrhagic CVA s/p fall on psych unit yesterday - CT Head reveals new tiny area of spontaneously dense material high along the left cerebral vertex suspicious for small punctate hemorrhagic contusion, stable old infarcts in the right occipital lobe and left basal ganglia and stable right ventricular catheter in place. Status post DOZER OPERATOR shunt by Dr. Trejo -Consult Neurosurgery, appreciate assistance. No need for MRI per neurology at this time unless ordered by neurosurgery. My need to have evaluation of DOZER OPERATOR shunt, to be determined by neurosurgery. -Neurology following, no further testing. EEG without epileptic activity -Continue Keppra 1000 mg p.o. every 12 hours. - hold ASA for now given new hemorrhage -continue Lipitor 20 mg daily. -Orthostatic BP measurements negative but did show 19mmHg drop. Continue to follow. -fall and seizure precautions -neuro checks Hypertension, improved -continue patient on nifedipine 30 mg daily -BP very close to goal (<140/90), continue current medications. Diabetes mellitus Blood sugars well controlled -accucheks and ISS, BS well controlled -Patient's creatinine is 1.44 and estimated GFR 49. - Continue metformin 500 mg daily, continue. Can be titrated up. CKD stage III -appears to be stable. -Will monitor periodically -Avoid nephrotoxic agents Full code. Ambulation. Discussed with nurse. Abdullahi Daniels August 06, 2017 08:46
[2017-08-06] MEDS ORDERED: MONT10TA2 PO (09:54)
[2017-08-06] MEDS ORDERED: CALC250 PO (09:54)
[2017-08-06] MEDS ORDERED: LEVE500 PO (09:54)
[2017-08-06] MEDS ORDERED: GABA800T PO (09:54)
[2017-08-06] MEDS ORDERED: POTA10CA PO (09:54)
[2017-08-06] MEDS ORDERED: METF500 PO (09:54)
[2017-08-06] MEDS ORDERED: PANT40TA3 PO (09:54)
[2017-08-06] MEDS ORDERED: VITA10002 PO (09:54)
[2017-08-06] MEDS ORDERED: NIFE30TA8 PO (09:54)
[2017-08-06] MEDS ORDERED: ATOR20TA15 PO (09:54)
[2017-08-06] MEDS ORDERED: SERO25TA PO (09:54)
[2017-08-06] MEDS ORDERED: THERTAB15 PO (09:54)
[2017-08-06] MEDS: GABAPENTIN 400 MG CAP PO SCH (09:55)
[2017-08-06] MEDS: PANTOPRAZOLE SOD 40 MG DELAYED RELEASE TAB PO SCH (09:55)
[2017-08-06] MEDS: NIFEdipine 30 MG SUSTAINED RELEASE TAB PO SCH (09:55)
--- NOTE | 2017-08-06 09:55 | HHI.DS ---
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 ICD Code: F01.51 - Vascular dementia with behavioral disturbance Brief History Patient is a 67-year-old man, , domiciled with , has 3 adult children, unemployed [employer] benefits, with past history of depression, no previous psychiatric admissions, previous suicide of self-injurious behavior, with substance use history significant for Crohn's, with a past medical history significant for PEDIATRIC ASSOCIATE shunt from hemorrhagic stroke, CVA with residual left-sided weakness, COPD, CAD triple bypass, hypertension, dementia was brought into the ED under ex parte which is abusive with code should her, increased alcohol use, or maintenance of hygiene (defecating on self), stealing from stores, involvement with processes recently which patient was admitted to the inpatient psychiatry for further evaluation. Extremity also noted that there were remote photographs on cell phone of his granddaughter's hand on his genitalia. Patient was found sitting in hospital bed noted become cooperative. Patient is alert and oriented 1 in the ER but alert and oriented to person and place only during interview today. Patient reports he has been having difficulty with memory since the stroke but denies having had any behavioral changes that he has noticed. Patient reported being compliant with medications and see reports his assists him with this. Patient reports sad regarding his 's "always takes her girlfriend with her everywhere". Patient states that he had been left alone for days at a time when she leaves with her girlfriend. Patient reports no changes sleep, appetite or concentration but did note difficulty remembering as stated above, and also decrease in energy. She denies any SI or HI, no perception disturbances or delusional material elicited. Patient patient states that he had called EMS himself because his left him alone for 5 days. Patient denies having ever been physically aggressive toward life although he did note having verbal arguments with her. Patient this recent increase in alcohol use, and this stealing from stores but was not able to provide explanation, as well as having spoken to prostitutes recently but denies any sexual involvement. Patient states that usually involves that lately stating that she always needs Family psychiatric history: Denies Past psychiatric history: Previous psychiatric diagnoses of depression, no previous psychiatric admissions, suicidal behavior, denies history of abuse. Substance use history: Alcohol use times a week usually 6-8 beers at a time or episodes of withdrawal. Patient denies any previous other substances. Past medical history: PEDIATRIC ASSOCIATE shunt after hemorrhagic stroke in 2017, COPD, CAD with bypass, hypertension, CVA with left-sided residual weakness, hypertension Allergies: Sertraline, cephalexin, lovastatin, clinoril Social history: , domiciled with , no children, unemployed on social. Collateral contact () Shannon Bazari - [phone]. Tobacco Use In Past 30 Days: No Tobacco Past 30 Days Alcohol Use: 2-4 Times Per Month Hospital Course Patient is a 67-year-old man, , domiciled with , has 3 adult children, unemployed [place] benefits, with past history of depression, no previous psychiatric admissions, previous suicide of self-injurious behavior, with substance use history significant for Crohn's, with a past medical history significant for PEDIATRIC ASSOCIATE shunt from hemorrhagic stroke, CVA with residual left-sided weakness, COPD, CAD triple bypass, hypertension, dementia was brought into the ED under ex parte which is abusive with code should her, increased alcohol use, or maintenance of hygiene (defecating on self), stealing from stores, involvement with processes recently which patient was admitted to the inpatient psychiatry for further evaluation. Patient was started on quetiapine 12.5mg PO BID, and continued on his regimen for chronic medical illnesses which which patient tolerated well with no adverse drug reactions noted. Patient throughout admission was noted to have disorientation secondary to neurocognitive deficits from neurological injury from previous CVA, and during admission noted with stable mood, no manic or psychotic symptoms observed and was noted to be cooperative with staff, adherent to treatment, with no behavioral disturbances throughout admission. Upon discharge patient stated feeling good, stated feeling okay with returning back to her home; noted to be calm and cooperative with staff. He agreed to continuing medical recommendations, treatment and cooperate for continuity of care. Patient; denies SI, HI, AVH or delusions. Supportive psychotherapy provided. Treatment team was able to confirm that home services will be in place and that all firearms would be removed for safety from the home. Suicide and violence risk assessment on day of discharge both suggest lower imminent risk, and the patient's level of function is adequate for planned level of outpatient care. Patient has maximized benefit from this inpatient psychiatric hospital stay and to return to psychiatric emergency room for any concerning psychiatric symptoms. Patient agrees with plan. Results Blood Pressure 142 / 87 Vital Signs Date Time Temp Pulse Resp B/P (MAP) Pulse Ox O2 Delivery O2 Flow Rate FiO2 08/06/17 06:00 97.4 64 18 142/87 (105) 96 Laboratory Tests Test 08/04/17 08:37 Laboratory Results Test 08/01/17 14:32 08/02/17 08:36 [place] Level LESS THAN 0.1 MEQ/L Valproic Acid (Depakene) Level 4 MCG/ML (50-100) Cholesterol Level 105 MG/DL (120-200) HDL Cholesterol 57.2 MG/DL (40.0-60.0) Hemoglobin A1c 5.7 % (4.3-6.0) LDL Cholesterol 31 MG/DL (0-99) Triglycerides Level 85 MG/DL (42-150) Summary of Procedures none Imaging Last Impressions Head CT 08/02/17 0000 Signed Impressions: Service Date/Time: Wednesday, August 02, 2017 20:19 - CONCLUSION: 1. New tiny area of spontaneously dense material high along the left cerebral vertex suspicious for small punctate hemorrhagic contusion. 2. Stable old infarcts in the right occipital lobe and left basal ganglia 3. Stable right ventricular catheter in place. Vitaliy Blanton MD Pending results at discharge: No Medications # of Antipsychotic meds at D/C: 1 Approp Antipsych med options 1 - Minimum of three failed multiple trials of monotherapy. 2 - Documented plan to taper to monotherapy due to previous use of multiple meds OR cross-taper in progress at D/C. 3 - Documentation of augmentation of Clozapine. 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 ICD Code: F01.51 - Vascular dementia with behavioral disturbance Status: Acute Pt Condition on Discharge: Stable Discharge Disposition: Disch w/ Home Health Serv Discharge Instructions Diet Instructions: Heart Healthy Diet Activities you can perform: Regular-No Restrictions Discharge Time > 30 minutes Mental Status Examination Appearance: Appropriate Consciousness: Alert Orientation: Person, Place Motor Activity: Abnormal gait Speech: Unremarkable Language: Adequate Fund of Knowledge: Inadequate Attention and Concentration: Adequate Memory: Impaired Mood: Appropriate Affect: Appropriate Thought Process & Associations: Intact Thought Content: Appropriate Hallucination Type: None Delusion Type: None Suicidal Ideation: No Suicidal Plan: No Suicidal Intention: No Homicidal Ideation: No Homicidal Plan: No Homicidal Intention: No Insight: Fair Judgment: Impulsive Discharge/Advance Care Plan Health Problems: (1) 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 Boyd Hernandez at Smoking is Dangerous to Your Health. Avoid second hand smoking Boyd Hernandez MD August 06, 2017 09:55
[2017-08-06] MEDS: CALCIUM/VITAMIN D 250 MG/125 U TAB PO SCH (09:56)
[2017-08-06] MEDS: levETIRAcetam 500 MG TAB PO SCH (09:56)
[2017-08-06] MEDS: QUEtiapine FUMARATE 25 MG TAB PO SCH (09:56)
[2017-08-06] MEDS: MULTIVITAMIN TAB PO SCH (09:56)
[2017-08-06] MEDS: metFORMIN HCL 500 MG TAB PO SCH (09:56)
[2017-08-06] MEDS: CYANOCOBALAMIN 1,000 MCG TAB PO SCH (09:57)
[2017-08-06] MEDS: POTASSIUM CHLORIDE 10 MEQ CAP PO SCH (10:59)
== END 2017-08-06 13:30 | disposition home health service (06) | DRG 884 ==
LOC: NEPJ 14:11 → NEDA 20:52 → H260 22:14 → H270 08-04 22:27 → H4EA 08-05 16:15
PROVIDERS: ADMIT Student in an Organized Health Care Education/Training Program; ATTEND Student in an Organized Health Care Education/Training Program
DX: F01.51 Vascular dementia, unspecified severity, with behavioral disturbance (principal); E11.22 Type 2 diabetes mellitus with diabetic chronic kidney disease; E11.42 Type 2 diabetes mellitus with diabetic polyneuropathy; S06.350A Traumatic hemorrhage of left cerebrum without loss of consciousness, initial encounter; J44.9 Chronic obstructive pulmonary disease, unspecified; N18.3 Chronic kidney disease, stage 3 (moderate); F41.9 Anxiety disorder, unspecified; F32.9 Major depressive disorder, single episode, unspecified; E78.5 Hyperlipidemia, unspecified; I12.9 Hypertensive chronic kidney disease with stage 1 through stage 4 chronic kidney disease, or unspecified chronic kidney disease; I25.2 Old myocardial infarction; I25.10 Atherosclerotic heart disease of native coronary artery without angina pectoris; I69.111 Memory deficit following nontraumatic intracerebral hemorrhage; M19.90 Unspecified osteoarthritis, unspecified site; H91.90 Unspecified hearing loss, unspecified ear; W19.XXXA Unspecified fall, initial encounter; Y92.239 Unspecified place in hospital as the place of occurrence of the external cause; Z88.1 Allergy status to other antibiotic agents; Z95.1 Presence of aortocoronary bypass graft; Z95.5 Presence of coronary angioplasty implant and graft; Z98.2 Presence of cerebrospinal fluid drainage device; Z98.84 Bariatric surgery status
CPT/HCPCS: 70450; 80048; 80053; 80061; 80156; 80164; 80178; 80184; 80185; 80307; 81001; 82607; 82948; 83036; 84443; 85025; 86592; 93005; 95819

== ENCOUNTER 2017-08-06 17:50 | Inpatient (IN) | payer OTHER, MEDICARE ==
[~2017-08-06] VITALS: Ht 170.2 cm; Wt 105.1 kg
[~2017-08-06 17:50] MED LIST changes: +ATOR20TA15 PO; +CALC250 PO; -FERR325C PO; +METF500 PO; +NIFE30TA8 PO; +PANT40TA3 PO; +SERO25TA PO; +THERTAB15 PO; +VITA10002 PO
[2017-08-06 18:02] VITALS: BP 121/70; PULSE 87; RESP 19; TEMP 98.7; O2SAT 97
[2017-08-06] MEDS ORDERED: SODIUM CHLOR 0.9% 1000 ML INJ 1,000 ML IV ONE (18:07)
[2017-08-06 18:13] VITALS: BP_SYST 107; BP_SYST 113; BP_SYST 115; BP_DIAS 62; BP_DIAS 64; BP_DIAS 67
--- NOTE | 2017-08-06 18:13 | PD ---
HPI Chief Complaint: Syncope/Near-Syncope Time Seen by Provider: 18:00 Travel History International Travel<30 days: No Contact w/Intl Traveler<30days: No Traveled to known affect area: No History of Present Illness HPI This is a 67-year-old male with history of vascular dementia, COPD, CAD, MILK PASTEURIZER shunt, CVA, hypertension, presents via EMS for evaluation after a syncopal event. The patient appears to have been discharged from the psychiatric unit this afternoon. He reports that he took an override to his home however his is at home and he could not get inside and therefore the ureter jinriksha driver dropped him off in the hospital parking lot. There he reports that he became lightheaded and he had a syncopal event. He was found by [employer] who then called an ambulance and he was transferred here. His blood pressure was initially hypotensive. EMS with a systolic in the 80s. He was given 500 mL of normal saline and his blood pressure improved to 105/71. Currently his blood pressure is 121/70. He reports that he is hungry but he otherwise feels well. He reports that he did not eat the food that was provided to him this morning in the hospital because it was not good. He denies any lightheadedness, dizziness, chest pain, shortness of breath, headache, blurred vision, nausea, vomiting, abdominal pain, pain in the neck, back or extremities. No other complaints. PFSH Past Medical History Hx Anticoagulant Therapy: Yes Arthritis: Yes Asthma: Yes Anxiety: Yes Depression: Yes Cancer: No Cardiac Catheterization: Yes (x15, 4 STENTS ) Cardiovascular Problems: Yes (COPD, Triple Bypass) High Cholesterol: Yes COPD: Yes Cerebrovascular Accident: Yes (HEMM STROKE 1 YR AGO, MILK PASTEURIZER SHUNT ) Dementia: Yes (post cva) Diabetes: Yes Patient Takes Glucophage: Yes (Metformin 08/06/17) Diminished Hearing: Yes (CURRENTLY HAVING DIFFICULTY HEARING) Endocrine: Yes Gastrointestinal Disorders: Yes (BARRETTS SYNDROME) Genitourinary: No Headaches: Yes Hepatitis: No Hiatal Hernia: No Hypertension: Yes Immune Disorder: No Implanted Vascular Access Dvce: Yes Musculoskeletal: Yes (NEUROPATHY) Neurologic: Yes (MAY 2016 STROKE, L SIDE WEAKNESS) Psychiatric: Yes (Dementia after stroke, depression) Reproductive: No Respiratory: Yes (COPD) Myocardial Infarction: Yes (X 2) Seizures: No Thyroid Disease: No Past Surgical History Abdominal Surgery: Yes (gastric bypass) AICD: No Body Medical Devices: STENTS, STERNAL WIRES, SHUNT Cardiac Surgery: Yes (15 CATHS AND 4 STENTS PLACED.TRIPLE BYPASS.) Coronary Artery Bypass Graft: Yes (x3) Joint Replacement: No Neurologic Surgery: Yes (MILK PASTEURIZER SHUNT PLACED 09/05/16, SURGERY FOR HEMM. STROKE ) Pacemaker: No Other Surgery: Yes Social History Alcohol Use: Yes (MODERATE) Tobacco Use: No Substance Use: No Allergies-Medications (Allergen,Severity, Reaction): Coded Allergies: cephalexin (Verified Allergy, Severe, EDEMA THROAT, 08/06/17) lovastatin (Verified Allergy, Severe, 08/06/17) sertraline (Verified Allergy, Severe, "VERY SEVERE OFF BALANCE AND DIARRHEA", 08/06/17) Uncoded Allergies: CLINORIL (Allergy, Unknown, 09/04/16) Reported Meds & Prescriptions Reported Meds & Active Scripts Active Thera Tablet (Multivitamin with Folic Acid) 400 Mcg Tablet 1 Tab PO DAILY 30 Days Vitamin B-12 (Cyanocobalamin) 1,000 Mcg Tab 6,000 Mcg PO DAILY 30 Days Glucophage (Metformin HCl) 500 Mg Tab 500 Mg PO DAILY 30 Days Pantoprazole (Pantoprazole Sodium) 40 Mg Tab 40 Mg PO DAILY 30 Days Potassium Chloride ER (Potassium Chloride) 10 Meq Cap 10 Meq PO DAILY 30 Days Oyster Shell 250 mg + Vit D Tb (Calcium/Vitamin D) 250 Mg Calcium (625 Mg)-125 Unit Tablet 500 Mg PO BID 30 Days Seroquel (Quetiapine Fumarate) 25 Mg Tab 12.5 Mg PO BID 30 Days Gabapentin 800 Mg Tab 800 Mg PO BID Nifedipine ER 24 HR (Nifedipine) 30 Mg Tab 30 Mg PO DAILY 30 Days Atorvastatin (Atorvastatin Calcium) 20 Mg Tab 20 Mg PO HS 30 Days Singulair (Montelukast Sodium) 10 Mg Tab 10 Mg PO HS 30 Days Keppra (Levetiracetam) 500 Mg Tab 1,000 Mg PO Q12HR 30 Days Reported Aricept (Donepezil HCl) 5 Mg Tablet PO HS Coq-10 (Coenzyme Q10 (Ubidecarenone)) 30 Mg Cap PO DAILY Review of Systems Except as stated in HPI: all other systems reviewed are Neg Physical Exam Narrative GENERAL: Well-developed well-nourished male in no acute distress awake and alert. Vital signs stable. SKIN: Warm and dry. HEAD: Atraumatic. Normocephalic. EYES: Pupils equal and round. No scleral icterus. No injection or drainage. ENT: No nasal bleeding or discharge. Mucous membranes pink and moist. NECK: Trachea midline. No JVD. CARDIOVASCULAR: Regular rate and rhythm. No murmur appreciated. RESPIRATORY: No accessory muscle use. Clear to auscultation. Breath sounds equal bilaterally. GASTROINTESTINAL: Abdomen soft, non-tender, nondistended. Hepatic and splenic margins not palpable. MUSCULOSKELETAL: No obvious deformities. No clubbing. No cyanosis. No edema. NEUROLOGICAL: Awake and alert. No obvious cranial nerve deficits. Motor grossly within normal limits. Normal speech. PSYCHIATRIC: Appropriate mood and affect; insight and judgment normal. Data Data Last Documented VS Vital Signs Date Time Temp Pulse Resp B/P (MAP) Pulse Ox O2 Delivery O2 Flow Rate FiO2 08/06/17 19:22 80 16 96 Room Air 08/06/17 19:22 120/59 (79) 08/06/17 18:02 98.7 Orders Orders Electrocardiogram (08/06/17 18:07) Complete Blood Count With Diff (08/06/17 18:07) Comprehensive Metabolic Panel (08/06/17 18:07) Magnesium (Mg) (08/06/17 18:07) Ckmb (Isoenzyme) Profile (08/06/17 18:07) Troponin I (08/06/17 18:07) Ct Brain W/O Iv Contrast(Rout) (08/06/17 18:07) Blood Glucose (08/06/17 18:07) Ecg Monitoring (08/06/17 18:07) Iv Access Insert/Monitor (08/06/17 18:07) Oximetry (08/06/17 18:07) Sodium Chloride 0.9% Flush (Ns Flush) (08/06/17 18:15) Sodium Chlor 0.9% 1000 Ml Inj (Ns 1000 M (08/06/17 18:07) Orthostatic Vital Signs (08/06/17 18:07) CKMB (08/06/17 18:15) CKMB% (08/06/17 18:15) Ed Discharge Order (08/06/17 20:42) Labs Laboratory Tests Test 08/06/17 18:15 White Blood Count 6.6 TH/MM3 Red Blood Count 5.38 MIL/MM3 Hemoglobin 14.1 GM/DL Hematocrit 42.6 % Mean Corpuscular Volume 79.2 FL Mean Corpuscular Hemoglobin 26.1 PG Mean Corpuscular Hemoglobin Concent 33.0 % Red Cell Distribution Width 15.3 % Platelet Count 170 TH/MM3 Mean Platelet Volume 9.1 FL Neutrophils (%) (Auto) 71.3 % Lymphocytes (%) (Auto) 15.2 % Monocytes (%) (Auto) 11.4 % Eosinophils (%) (Auto) 1.3 % Basophils (%) (Auto) 0.8 % Neutrophils # (Auto) 4.7 TH/MM3 Lymphocytes # (Auto) 1.0 TH/MM3 Monocytes # (Auto) 0.8 TH/MM3 Eosinophils # (Auto) 0.1 TH/MM3 Basophils # (Auto) 0.1 TH/MM3 CBC Comment DIFF FINAL Differential Comment Blood Urea Nitrogen 15 MG/DL Creatinine 1.85 MG/DL Random Glucose 118 MG/DL Total Protein 6.7 GM/DL Albumin 3.5 GM/DL Calcium Level 8.5 MG/DL Magnesium Level 2.0 MG/DL Alkaline Phosphatase 66 U/L Aspartate Amino Transf (AST/SGOT) 19 U/L Alanine Aminotransferase (ALT/SGPT) 28 U/L Total Bilirubin 0.5 MG/DL Sodium Level 143 MEQ/L Potassium Level 4.1 MEQ/L Chloride Level 106 MEQ/L Carbon Dioxide Level 27.0 MEQ/L Anion Gap 10 MEQ/L Estimat Glomerular Filtration Rate 36 ML/MIN Total Creatine Kinase 168 U/L Troponin I LESS THAN 0.02 NG/ML MDM Medical Decision Making Medical Screen Exam Complete: Yes Emergency Medical Condition: Yes Medical Record Reviewed: Yes Differential Diagnosis Orthostatic hypotension, vasovagal syncope, arrhythmia, closed head injury, electrolyte abnormality, hypoglycemia, dehydration, seizure Narrative Course The patient was placed on ECG monitoring pulse oximetry. A 12-lead EKG was obtained revealing sinus rhythm. Lab work, CT the brain ordered. The patient was given 1 L normal saline. Orthostatic vital signs obtained. The patient was monitored here for several hours. Lab work was reassuring. CT the brain revealed no acute abnormalities. Cardiac enzymes negative. The patient's creatinine is 1.85 which is elevated from his baseline but his BUN is 15. The patient was able to ambulate in his room with no symptomatology prior to discharge. He was given oral hydration. He will be discharged when his is able to pick him up. Diagnosis Primary Impression: Syncope Additional Instructions: Stay well hydrated and well-nourished. Follow-up with your primary care physician and return for any emergent medical conditions. Med/Other Pt SpecificInfo: No Change to Meds Disposition: 01 DISCHARGE HOME Condition: Stable Juan Graham August 06, 2017 18:13
[2017-08-06] MEDS ORDERED: SODIUM CHLORIDE 0.9% FLUSH 10 ML FLUSH IVF PRN (18:15)
--- NOTE | 2017-08-06 18:56 | RADRPT ---
EXAM DATE/TIME: 08/06/2017 18:37 [facility] COMPARISON: CT BRAIN W/O CONTRAST, August 02, 2017, 20:19. INDICATIONS : Dizziness. RADIATION DOSE: 43.47 CTDIvol (mGy) MEDICAL HISTORY : Dementia. Cardiovascular disease Hypertension. SURGICAL HISTORY : Craniotomy. Shunt. ENCOUNTER: Initial ACUITY: 1 day PAIN SCALE: 0/10 LOCATION: cranial TECHNIQUE: Multiple contiguous axial images were obtained of the head. Using automated exposure control and adj ustment of the mA and/or kV according to patient size, radiation dose was kept as low as reasonably a chievable to obtain optimal diagnostic quality images. DICOM format image data is available electro nically for review and comparison. FINDINGS: CEREBRUM: There is a ventriculostomy tube in place from a right frontal approach with the tip extending through the frontal horn of the right lateral ventricle and into the third ventricle. The ventricles are mil dly dilated. No evidence of midline shift, mass lesion, hemorrhage or acute infarction. There is de creased density in the periventricular white matter. There is encephalomalacia at the right posterior parietal lobe and the right occipital lobe. There is an old lacunar infarct of the left basal gangli a. No extra-axial fluid collections are seen. POSTERIOR FOSSA: The cerebellum and brainstem are intact. The 4th ventricle is midline. The cerebellopontine angle i s unremarkable. EXTRACRANIAL: The visualized portion of the orbits is intact. SKULL: The calvaria is intact. No evidence of skull fracture. The patient is status post right craniotomy. Shunt tubing is seen on the right side. CONCLUSION: 1. No acute abnormality seen. 2. DREDGE MATE shunt tubing in place. 3. Mild persistent dilatation of the ventricular system. 4. Low-density in the periventricular white matter likely related to small vessel ischemic change. 5. Encephalomalacia in the right parietal and right occipital lobes. Bridger Packer MD on August 06, 2017 at 18:50 Board Certified Radiologist. This report was verified electronically.
[2017-08-06 19:00] LABS: AUTOMATED NEUTROPHIL # 4.7 TH/MM3 (1.8-7.7); BASOPHIL # 0.1 TH/MM3 (0-0.2); BASOPHIL % 0.8 % (0.0-2.0); EOSINOPHIL # 0.1 TH/MM3 (0-0.4); EOSINOPHIL % 1.3 % (0.0-4.0); HEMATOCRIT 42.6 % (39.0-51.0); HEMOGLOBIN 14.1 GM/DL (13.0-17.0); LYMPH % 15.2 % (9.0-44.0); MEAN CELL VOLUME 79.2 FL (80.0-100.0); MEAN CORPUSCULAR HEMOGLOBIN 26.1 PG (27.0-34.0); MEAN PLATELET VOLUME 9.1 FL (7.0-11.0); MONO % 11.4 % (0.0-8.0); MONOCYTE # 0.8 TH/MM3 (0-0.9); NEUT % 71.3 % (16.0-70.0); PLATELET COUNT 170 TH/MM3 (150-450); RED BLOOD COUNT 5.38 MIL/MM3 (4.50-5.90); RED CELL DISTRIBUTION WIDTH 15.3 % (11.6-17.2); WHITE BLOOD COUNT 6.6 TH/MM3 (4.0-11.0)
[2017-08-06 19:22] VITALS: BP 120/59; PULSE 79; RESP 16; O2SAT 96
[2017-08-06 20:03] LABS: ALBUMIN 3.5 GM/DL (3.4-5.0); AST (GOT) 19 U/L (15-37); CALCIUM 8.5 MG/DL (8.5-10.1); CHLORIDE 106 MEQ/L (98-107); CREATININE 1.85 MG/DL (0.60-1.30); GLOMERULAR FILTRATION RATE 36 ML/MIN (>89); GLUCOSE,RANDOM 118 MG/DL (74-106); SODIUM (NA) 143 MEQ/L (136-145)
[2017-08-06 20:25] LABS: ALKALINE PHOSPHATASE 66 U/L (45-117); ALT (GPT) 28 U/L (12-78); BLOOD UREA NITROGEN 15 MG/DL (7-18); TOTAL BILIRUBIN ADULT 0.5 MG/DL (0.2-1.0); TOTAL PROTEIN 6.7 GM/DL (6.4-8.2); TROPONIN I LESS THAN 0.02 NG/ML (0.02-0.05)
[2017-08-07 01:15] VITALS: BP 126/76; PULSE 70; RESP 16; O2SAT 95
[2017-08-07 06:17] VITALS: BP 135/80; PULSE 83; RESP 16; O2SAT 95
[2017-08-07 12:06] VITALS: BP 148/89; PULSE 104; RESP 20; O2SAT 96
[2017-08-07] MEDS ORDERED: MAGNESIUM HYDROXIDE SUSP 30 ML CUP PO PRN (16:45)
[2017-08-07] MEDS ORDERED: ALUMINUM/MAGNESIUM/SIMETH 30 ML CUP PO PRN (16:45)
[2017-08-07] MEDS ORDERED: LORazepam 0.5 MG TAB PO PRN (16:45)
[2017-08-07] MEDS ORDERED: ACETAMINOPHEN 325 MG TAB PO PRN (16:45)
[2017-08-07] MEDS ORDERED: LORazepam 2 MG/ML VIAL IM PRN (16:45)
[2017-08-07] MEDS ORDERED: PILL SPLITTER OTHER PRN (17:15)
[2017-08-07 17:30] VITALS: BP 173/76; PULSE 71; RESP 18; TEMP 96.3; O2SAT 96
[2017-08-07] MEDS: ATORVASTATIN 20 MG TAB PO SCH (21:47)
[2017-08-07] MEDS: MONTELUKAST SODIUM 10 MG TAB PO SCH (21:47)
[2017-08-07] MEDS: QUEtiapine FUMARATE 25 MG TAB PO SCH (21:47)
[2017-08-07] MEDS: levETIRAcetam 500 MG TAB PO SCH (21:47)
[2017-08-08 06:17] VITALS: BP 150/74; PULSE 80; RESP 18; TEMP 97.9; O2SAT 97
[2017-08-08 07:54] LABS: BICARBONATE 24.8 MEQ/L (21.0-32.0); BLOOD UREA NITROGEN 13 MG/DL (7-18); CHLORIDE 104 MEQ/L (98-107); CREATININE 1.25 MG/DL (0.60-1.30); GLOMERULAR FILTRATION RATE 57 ML/MIN (>89); GLUCOSE,RANDOM 101 MG/DL (74-106); SODIUM (NA) 140 MEQ/L (136-145)
[2017-08-08 07:56] LABS: CHOLESTEROL 91 MG/DL (120-200); CHOLESTEROL/ HDL RATIO 1.82 RATIO; HDL CHOLESTEROL 49.8 MG/DL (40.0-60.0); LDL CHOLESTEROL 26 MG/DL (0-99); TRIGLYCERIDES 78 MG/DL (42-150)
[2017-08-08] MEDS: QUEtiapine FUMARATE 25 MG TAB PO SCH ×2 (09:00→21:00)
[2017-08-08] MEDS: CYANOCOBALAMIN 1,000 MCG TAB PO SCH (09:00)
[2017-08-08] MEDS: MULTIVITAMIN TAB PO SCH (09:19)
[2017-08-08] MEDS: PANTOPRAZOLE SOD 40 MG DELAYED RELEASE TAB PO SCH (09:20)
[2017-08-08] MEDS: NIFEdipine 30 MG SUSTAINED RELEASE TAB PO SCH (09:20)
[2017-08-08] MEDS: metFORMIN HCL 500 MG TAB PO SCH (09:20)
[2017-08-08] MEDS: levETIRAcetam 500 MG TAB PO SCH ×2 (09:21→21:16)
--- NOTE | 2017-08-08 11:45 | HHI.HP ---
Provisional Diagnosis Admission Date August 07, 2017 at 16:44 [place] I. 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 Express and informed consent means consent voluntarily given in writing, by a competent person, after sufficient explanation and disclosure of the subject matter involved to enable the person to make a knowing and willful decision without any element of force, fraud, deceit, duress, or other form of constraint or coercion. This person is 18 years of age or older, is not now known to be incompetent to consent to treatment with a guardian advocate, and does not have a health care surrogate or proxy currently making medical treatment decisions. I have found this person to be one of the following: [] Competent to provide express and informed consent, as defined above, for voluntary admission to this facility and is competent to provide express and informed consent for treatment. He/she has the consistent capacity to make well reasoned, willful, and knowing decisions concerning his or her medical or mental health treatment. The person fully and consistently understands the purpose of the admission for examination/placement and is fully capable of personally exercising all rights assured under [place]xxx] Incompetent to provide express and informed consent to voluntary admission , and this is incompetent to provide express and informed consent to treatment. The person must be transferred to involuntary status and a petition for a guardian advocate filed with the Circuit Court. [] Refusing to provide express and informed consent to voluntary admission but is competent to provide express and informed consent for treatment. The person must be discharged or transferred to involuntary status. Form shall be completed within 24 hours of a person's arrival at the receiving facility and filed in the clinical record of each person: 1. Admitted on a voluntary basis 2. Permitted to provide express and informed consent to his/her own treatment 3. Allowed to transfer from involuntary to voluntary status 4. Prior to permitting a person to consent to his or her own treatment after having been previously found incompetent to consent to treatment. 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 Patient was found lying hospital bed noted, cooperative. Patient states that his recollection of the events were that he arrived home, into the house and would began arguing with his . Patient states that "it escalated" which they started yelling at each other and believes that she had called the police who had brought him here. When asked about having been found in the parking lot he states "I do not remember stated that he recalls having "passed out" and that had found him and believes he had passed out because he was walking for a long time. Patient states that he has had difficulty with his memory since the strokes. Patient states that he is aware that he is in the hospital but cannot recall the date. He does not denies any perceptional disturbances, any SI or HI, or delusions. Patient mentions that without the assistance from his he would not be able to care for himself as he states he is unable to cook or make his meals, has difficulty getting dressed as well as his assistance with administration of his medications. When asked about any other family members he mentions that he has children initially 3 but then he stated he had 4 had difficulty remembering the names. As per chart, documentation from the emergency department stated: He reports that he took an override to his home however his is at home and he could not get inside and therefore the ureter refrigerated national truck driver dropped him off in the hospital parking lot. There he reports that he became lightheaded and he had a syncopal event. He was found by [employer] who then called an ambulance and he was transferred here. His blood pressure was initially hypotensive. Collateral obtained by patient's , Daja Ansari, who stated that she was not there to receive the patient initially but had left the door to the garage senior director marketing for him to come into the home. She mentions that she is trying to assist in having patient placed in a facility where he can have the care he requires but continues to fear for her safety and will not want patient back to live with her. Patient agrees to continue to serve as health care surrogate and treatment regimen was reviewed with her and consented for treatment. History unchanged from recent admission: Family psychiatric history: Denies Past psychiatric history: Previous psychiatric diagnoses of depression, no previous psychiatric admissions, suicidal behavior, denies history of abuse. Substance use history: Alcohol use times a week usually 6-8 beers at a time or episodes of withdrawal. Patient denies any previous other substances. Past medical history: DISTRICT OR DISTRICT OFFICE DIRECTOR shunt after hemorrhagic stroke in 2017, COPD, CAD with bypass, hypertension, CVA with left-sided residual weakness, hypertension Allergies: Sertraline, cephalexin, lovastatin, clinoril Social history: , domiciled with , no children, unemployed on social. Collateral contact () Shannon [place] - [phone]. Past Family Social History Coded Allergies: cephalexin (Verified Allergy, Severe, EDEMA THROAT, 08/06/17) lovastatin (Verified Allergy, Severe, 08/06/17) sertraline (Verified Allergy, Severe, "VERY SEVERE OFF BALANCE AND DIARRHEA", 08/06/17) Uncoded Allergies: CLINORIL (Allergy, Unknown, 09/04/16) Active Scripts Multivitamin with Folic Acid (Thera Tablet) 400 Mcg Tablet, 1 TAB PO DAILY for health for 30 Days, #30 TAB Prov:Boyd Hernandez MD 08/06/17 Cyanocobalamin (Vitamin B-12) 1,000 Mcg Tab, 6000 MCG PO DAILY for health for 30 Days, #180 TAB Prov:Boyd Hernandez MD 08/06/17 Metformin (Glucophage) 500 Mg Tab, 500 MG PO DAILY for health for 30 Days, #30 TAB Prov:Boyd Hernandez MD 08/06/17 Pantoprazole (Pantoprazole) 40 Mg Tab, 40 MG PO DAILY for health for 30 Days, # 30 TAB Prov:Boyd Hernandez MD 08/06/17 Potassium Chloride ER (Potassium Chloride ER) 10 Meq Cap, 10 MEQ PO DAILY for health for 30 Days, #30 CAP Prov:Boyd Hernandez MD 08/06/17 Calcium/Vitamin D (Oyster Shell 250 mg + Vit D Tb) 250 Mg Calcium (625 Mg)-125 Unit Tablet, 500 MG PO BID for health for 30 Days, #30 TAB Prov:Boyd Hernandez MD 08/06/17 Quetiapine (Seroquel) 25 Mg Tab, 12.5 MG PO BID for health for 30 Days, #30 TAB Prov:Boyd Hernandez MD 08/06/17 Gabapentin (Gabapentin) 800 Mg Tab, 800 MG PO BID for health, #90 TAB 0 Refills Prov:Boyd Hernandez MD 08/06/17 Nifedipine ER 24 HR (Nifedipine ER 24 HR) 30 Mg Tab, 30 MG PO DAILY for health for 30 Days, #30 TAB Prov:Boyd Hernandez MD 08/06/17 Atorvastatin (Atorvastatin) 20 Mg Tab, 20 MG PO HS for health for 30 Days, #30 TAB Prov:Boyd Hernandez MD 08/06/17 Montelukast (Singulair) 10 Mg Tab, 10 MG PO HS for health for 30 Days, #30 TAB 0 Refills Prov:Boyd Hernandez MD 08/06/17 Levetiracetam (Keppra) 500 Mg Tab, 1000 MG PO Q12HR for SZ for 30 Days, #120 TAB Prov:Boyd Hernandez MD 08/06/17 Reported Medications Donepezil HCl (Aricept) 5 Mg Tablet, PO HS 10/23/16 Coenzyme Q10 (Ubidecarenone) (Coq-10) 30 Mg Cap, PO DAILY 10/23/16 Discontinued Reported Medications Multiple Vitamin (Multi-Vitamin Daily) 1 Tab Tab, 1 TAB PO DAILY for Nutritional Supplement, TAB 0 Refills 01/25/17 Potassium Chloride Microencaps (Potassium Chloride Microencaps) 10 Meq Tab 12/30/16 Gabapentin (Gabapentin) 800 Mg Tab, 800 MG PO TID 12/30/16 Nitroglycerin (Nitroglycerin) 5 Mg/Ml Inj 10/23/16 Cyanocobalamin (B-12) 5,000 Mcg Subl, 6000 MCG PO DAILY for Nutritional Supplement, TAB.SL 0 Refills 10/23/16 Calcium Carbonate-Cholecalciferol (Calcium 500 +D) 500-400 Mg-Unit Tab, 1 TAB PO BID for Calcium Supplement, TAB 0 Refills 10/23/16 Fluoxetine (Prozac) 20 Mg Cap, 40 MG PO DAILY, #30 CAP 0 Refills 08/30/16 Potassium Chloride ER (Potassium Chloride ER) 10 Meq Cap, 10 MEQ PO DAILY for Electrolyte Replacement, #30 CAP 0 Refills 08/30/16 Alprazolam (Xanax) 0.25 Mg Tab, 0.25 MG PO BID Y for ANXIETY, TAB 0 Refills 08/30/16 Atorvastatin (Lipitor) 40 Mg Tab, 40 MG PO EVERY OTHER DAY for Cholesterol Management, #30 TAB 0 Refills 08/30/16 Hydrocodone-Acetaminophen ([place]) 7.5-325 mg Tab, 1 TAB PO Q6H Y for PAIN, TAB 0 Refills 08/30/16 Omeprazole (Omeprazole) 40 Mg Cap, 40 MG PO DAILY, #30 CAP 0 Refills 05/22/16 Current Medications Medications (Trade) Dose Ordered Sig/Chaz Route Start Time Stop Time Status Last Admin (NS Flush) 2 ml UNSCH PRN IVF 08/06/17 18:15 (Lipitor) 20 mg HS PO 08/07/17 21:00 08/07/17 21:47 (Vitamin B12) 6,000 mcg DAILY PO 08/08/17 09:00 08/08/17 09:00 (Keppra) 1,000 mg Q12HR PO 08/07/17 21:00 08/08/17 09:21 (Glucophage) 500 mg DAILY PO 08/08/17 09:00 08/08/17 09:20 (Singulair) 10 mg HS PO 08/07/17 21:00 08/07/17 21:47 (Theragran) 1 tab DAILY PO 08/08/17 09:00 08/08/17 09:19 (Procardia Xl) 30 mg DAILY PO 08/08/17 09:00 08/08/17 09:20 (Protonix) 40 mg DAILY PO 08/08/17 09:00 08/08/17 09:20 (KCl) 10 meq DAILY PO 08/08/17 09:00 (SEROquel) 12.5 mg BID PO 08/07/17 21:00 (Ativan) 0.5 mg Q12H PRN PO 08/07/17 16:45 (Ativan Inj) 0.5 mg Q12H PRN IM 08/07/17 16:45 (Tylenol) 650 mg Q4H PRN PO 08/07/17 16:45 (Milk Of Magnesia Liq) 30 ml DAILY PRN PO 08/07/17 16:45 (Mag-Al Plus Susp Liq) 30 ml Q6H PRN PO 08/07/17 16:45 (Pill Splitter) 1 ea UNSCH PRN OTHER 08/07/17 17:15 Physical Exam Patient not noted to be in acute distress, no gross motor abnormalities, no signs of tremor or EPS, no psychomotor agitation or retardation. Vital Signs Vital Signs Date Time Temp Pulse Resp B/P (MAP) Pulse Ox O2 Delivery O2 Flow Rate FiO2 08/08/17 06:17 97.9 80 18 150/74 (99) 97 08/07/17 12:06 Room Air Lab Results Labs reviewed Test 08/08/17 06:35 Blood Urea Nitrogen 13 MG/DL Creatinine 1.25 MG/DL Random Glucose 101 MG/DL Calcium Level 9.0 MG/DL Sodium Level 140 MEQ/L Potassium Level 4.0 MEQ/L Chloride Level 104 MEQ/L Carbon Dioxide Level 24.8 MEQ/L Anion Gap 11 MEQ/L Estimat Glomerular Filtration Rate 57 ML/MIN Triglycerides Level 78 MG/DL Cholesterol Level 91 MG/DL LDL Cholesterol 26 MG/DL HDL Cholesterol 49.8 MG/DL Cholesterol/HDL Ratio 1.82 RATIO Mental Status Examination Appearance: Appropriate Consciousness: Alert Orientation: Person, Place Motor Activity: Abnormal gait Speech: Unremarkable Language: Adequate Fund of Knowledge: Inadequate Attention and Concentration: Easily Distracted Memory: Impaired Mood: Other ("Okay") Affect: Blunt Thought Process & Associations: Other ([place]) Thought Content: Other Hallucination Type: None Delusion Type: None Suicidal Ideation: No Suicidal Plan: No Suicidal Intention: No Homicidal Ideation: No Homicidal Plan: No Homicidal Intention: No Insight: Poor Judgment: Poor Assessment & Plan Problem List: (1) 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 We will continue patient on current treatment regimen, patient's will serve as health care surrogate and agree to treatment via telephone. Patient will continue quetiapine 12.5 mg p.o. twice daily and continue rest of medication regimen for chronic medical illnesses.Continue to monitor mood and behavior, discharge planning in progress. Discharge Planning To be determined Boyd Hernandez MD August 08, 2017 11:45
--- NOTE | 2017-08-08 12:00 | EKG ---
Date Performed: 08/06/2017 Time Performed: 18:22:05 PTAGE: 67 years EKG: Sinus rhythm NORMAL ECG PREVIOUS TRACING : 08/02/2017 09.03 DOCTOR: Cam Haley Interpretating Date/Time 08/08/2017 11:52:41
[2017-08-08] MEDS: POTASSIUM CHLORIDE 10 MEQ CAP PO SCH (12:29)
[2017-08-08 14:23] LABS: HEMOGLOBIN A1C 5.5 % (4.3-6.0)
[2017-08-08] MEDS: MONTELUKAST SODIUM 10 MG TAB PO SCH (21:00)
[2017-08-08] MEDS: ATORVASTATIN 20 MG TAB PO SCH (21:16)
[2017-08-09 06:12] VITALS: BP 113/70; PULSE 69; RESP 18; TEMP 97.8; O2SAT 96
[2017-08-09] MEDS: MULTIVITAMIN TAB PO SCH (09:00)
[2017-08-09] MEDS: metFORMIN HCL 500 MG TAB PO SCH (09:00)
[2017-08-09] MEDS: CYANOCOBALAMIN 1,000 MCG TAB PO SCH (09:00)
[2017-08-09] MEDS: QUEtiapine FUMARATE 25 MG TAB PO SCH ×2 (09:00→21:31)
[2017-08-09] MEDS: levETIRAcetam 500 MG TAB PO SCH ×2 (09:00→21:30)
[2017-08-09] MEDS: PANTOPRAZOLE SOD 40 MG DELAYED RELEASE TAB PO SCH (09:00)
[2017-08-09] MEDS: NIFEdipine 30 MG SUSTAINED RELEASE TAB PO SCH (09:00)
[2017-08-09] MEDS: POTASSIUM CHLORIDE 10 MEQ CAP PO SCH (09:00)
--- NOTE | 2017-08-09 11:48 | PD.PSY.CON ---
Provisional Diagnosis Admission Date August 07, 2017 at 16:44 Taylor I. 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 Pt reports memory loss and inability to care for self. Nursing staff report that pt has been oriented X4 on unit and has been engaging in self care and other activities on unit. During interview, pt is not cooperative. He states that he is at [place] but states that he does not know the date or year. He closes eyes and refuses to answer questions. He states that he and his are arguing because she has been running around with a girlfriend. Pt will not answer any additional questions. Staff report that pt is allegedly facing legal charges of a sexual nature. : Family psychiatric history: Denies Past psychiatric history: Previous psychiatric diagnoses of depression,one previous psychiatric admission last week Substance use history: Alcohol use times a week usually 6-8 beers at a time or episodes of withdrawal. Patient denies any previous other substances. 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 Collateral contact () [employer] - [phone]. Past Family Social History Coded Allergies: cephalexin (Verified Allergy, Severe, EDEMA THROAT, 08/06/17) lovastatin (Verified Allergy, Severe, 08/06/17) sertraline (Verified Allergy, Severe, "VERY SEVERE OFF BALANCE AND DIARRHEA", 08/06/17) Uncoded Allergies: CLINORIL (Allergy, Unknown, 09/04/16) Active Scripts Multivitamin with Folic Acid (Thera Tablet) 400 Mcg Tablet, 1 TAB PO DAILY for health for 30 Days, #30 TAB Prov:Boyd Hernandez MD 08/06/17 Cyanocobalamin (Vitamin B-12) 1,000 Mcg Tab, 6000 MCG PO DAILY for health for 30 Days, #180 TAB Prov:Boyd Hernandez MD 08/06/17 Metformin (Glucophage) 500 Mg Tab, 500 MG PO DAILY for health for 30 Days, #30 TAB Prov:Boyd Hernandez MD 08/06/17 Pantoprazole (Pantoprazole) 40 Mg Tab, 40 MG PO DAILY for health for 30 Days, # 30 TAB Prov:Boyd Hernandez MD 08/06/17 Potassium Chloride ER (Potassium Chloride ER) 10 Meq Cap, 10 MEQ PO DAILY for health for 30 Days, #30 CAP Prov:Boyd Hernandez MD 08/06/17 Calcium/Vitamin D (Oyster Shell 250 mg + Vit D Tb) 250 Mg Calcium (625 Mg)-125 Unit Tablet, 500 MG PO BID for health for 30 Days, #30 TAB Prov:Boyd Hernandez MD 08/06/17 Quetiapine (Seroquel) 25 Mg Tab, 12.5 MG PO BID for health for 30 Days, #30 TAB Prov:Boyd Hernandez MD 08/06/17 Gabapentin (Gabapentin) 800 Mg Tab, 800 MG PO BID for health, #90 TAB 0 Refills Prov:Boyd Hernandez MD 08/06/17 Nifedipine ER 24 HR (Nifedipine ER 24 HR) 30 Mg Tab, 30 MG PO DAILY for health for 30 Days, #30 TAB Prov:Boyd Hernandez MD 08/06/17 Atorvastatin (Atorvastatin) 20 Mg Tab, 20 MG PO HS for health for 30 Days, #30 TAB Prov:Boyd Hernandez MD 08/06/17 Montelukast (Singulair) 10 Mg Tab, 10 MG PO HS for health for 30 Days, #30 TAB 0 Refills Prov:Boyd Hernandez MD 08/06/17 Levetiracetam (Keppra) 500 Mg Tab, 1000 MG PO Q12HR for SZ for 30 Days, #120 TAB Prov:Boyd Hernandez MD 08/06/17 Reported Medications Donepezil HCl (Aricept) 5 Mg Tablet, PO HS 10/23/16 Coenzyme Q10 (Ubidecarenone) (Coq-10) 30 Mg Cap, PO DAILY 10/23/16 Discontinued Reported Medications Multiple Vitamin (Multi-Vitamin Daily) 1 Tab Tab, 1 TAB PO DAILY for Nutritional Supplement, TAB 0 Refills 01/25/17 Potassium Chloride Microencaps (Potassium Chloride Microencaps) 10 Meq Tab 12/30/16 Gabapentin (Gabapentin) 800 Mg Tab, 800 MG PO TID 12/30/16 Nitroglycerin (Nitroglycerin) 5 Mg/Ml Inj 10/23/16 Cyanocobalamin (B-12) 5,000 Mcg Subl, 6000 MCG PO DAILY for Nutritional Supplement, TAB.SL 0 Refills 10/23/16 Calcium Carbonate-Cholecalciferol (Calcium 500 +D) 500-400 Mg-Unit Tab, 1 TAB PO BID for Calcium Supplement, TAB 0 Refills 10/23/16 Fluoxetine (Prozac) 20 Mg Cap, 40 MG PO DAILY, #30 CAP 0 Refills 08/30/16 Potassium Chloride ER (Potassium Chloride ER) 10 Meq Cap, 10 MEQ PO DAILY for Electrolyte Replacement, #30 CAP 0 Refills 08/30/16 Alprazolam (Xanax) 0.25 Mg Tab, 0.25 MG PO BID Y for ANXIETY, TAB 0 Refills 08/30/16 Atorvastatin (Lipitor) 40 Mg Tab, 40 MG PO EVERY OTHER DAY for Cholesterol Management, #30 TAB 0 Refills 08/30/16 Hydrocodone-Acetaminophen ([place]) 7.5-325 mg Tab, 1 TAB PO Q6H Y for PAIN, TAB 0 Refills 08/30/16 Omeprazole (Omeprazole) 40 Mg Cap, 40 MG PO DAILY, #30 CAP 0 Refills 05/22/16 Current Medications Medications (Trade) Dose Ordered Sig/Chaz Route Start Time Stop Time Status Last Admin (NS Flush) 2 ml UNSCH PRN IVF 08/06/17 18:15 (Lipitor) 20 mg HS PO 08/07/17 21:00 08/08/17 21:16 (Vitamin B12) 6,000 mcg DAILY PO 08/08/17 09:00 08/09/17 09:00 (Keppra) 1,000 mg Q12HR PO 08/07/17 21:00 08/09/17 09:00 (Glucophage) 500 mg DAILY PO 08/08/17 09:00 08/09/17 09:00 (Singulair) 10 mg HS PO 08/07/17 21:00 08/07/17 21:47 (Theragran) 1 tab DAILY PO 08/08/17 09:00 08/09/17 09:00 (Procardia Xl) 30 mg DAILY PO 08/08/17 09:00 08/09/17 09:00 (Protonix) 40 mg DAILY PO 08/08/17 09:00 08/09/17 09:00 (KCl) 10 meq DAILY PO 08/08/17 09:00 08/09/17 09:00 (SEROquel) 12.5 mg BID PO 08/07/17 21:00 (Ativan) 0.5 mg Q12H PRN PO 08/07/17 16:45 (Ativan Inj) 0.5 mg Q12H PRN IM 08/07/17 16:45 (Tylenol) 650 mg Q4H PRN PO 08/07/17 16:45 (Milk Of Magnesia Liq) 30 ml DAILY PRN PO 08/07/17 16:45 (Mag-Al Plus Susp Liq) 30 ml Q6H PRN PO 08/07/17 16:45 (Pill Splitter) 1 ea UNSCH PRN OTHER 08/07/17 17:15 Physical Exam Vital Signs Vital Signs Date Time Temp Pulse Resp B/P (MAP) Pulse Ox O2 Delivery O2 Flow Rate FiO2 08/09/17 06:12 97.8 69 18 113/70 (84) 96 08/07/17 12:06 Room Air I/O 08/09/17 08/09/17 08/10/17 08:00 16:00 00:00 Intake Total 120 ml Balance 120 ml Mental Status Examination Appearance: Appropriate Consciousness: Alert Orientation: Person, Place Motor Activity: Abnormal gait Speech: Unremarkable Language: Adequate Fund of Knowledge: Inadequate Attention and Concentration: Adequate Memory: Impaired (difficult to assess due to uncooperative behavior) Mood: Irritable Affect: Flat Thought Process & Associations: Other (concrete) Thought Content: Other Hallucination Type: None Delusion Type: None Suicidal Ideation: No Suicidal Plan: No Suicidal Intention: No Homicidal Ideation: No Homicidal Plan: No Homicidal Intention: No Insight: Poor Judgment: Poor Assessment & Plan Problem List: (1) 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 2nd opinion paperwork completed. Estimated LOS: days Tawana Argueta MD August 09, 2017 11:48
[2017-08-09 18:47] VITALS: BP 110/51; PULSE 81; RESP 18; TEMP 98.5; O2SAT 95
[2017-08-09] MEDS: ATORVASTATIN 20 MG TAB PO SCH (21:30)
[2017-08-09] MEDS: MONTELUKAST SODIUM 10 MG TAB PO SCH (21:31)
[2017-08-10 06:49] VITALS: BP 143/65; PULSE 71; RESP 18; TEMP 98.1; O2SAT 93
[2017-08-10] MEDS: POTASSIUM CHLORIDE 10 MEQ CAP PO SCH (08:54)
[2017-08-10] MEDS: MULTIVITAMIN TAB PO SCH (08:55)
[2017-08-10] MEDS: metFORMIN HCL 500 MG TAB PO SCH (08:55)
[2017-08-10] MEDS: PANTOPRAZOLE SOD 40 MG DELAYED RELEASE TAB PO SCH (08:55)
[2017-08-10] MEDS: NIFEdipine 30 MG SUSTAINED RELEASE TAB PO SCH (08:55)
[2017-08-10] MEDS: levETIRAcetam 500 MG TAB PO SCH ×2 (08:55→21:24)
[2017-08-10] MEDS: CYANOCOBALAMIN 1,000 MCG TAB PO SCH (08:55)
[2017-08-10] MEDS: QUEtiapine FUMARATE 25 MG TAB PO SCH ×2 (08:55→21:24)
--- NOTE | 2017-08-10 14:33 | HHI.PYPN ---
Subjective Remarks Pt seen and discussed with staff. He has been isolative to room and irritable. He is compliant with medications. No SI/HI. Mental Status Examination Appearance: Appropriate Consciousness: Alert Orientation: Person, Place Motor Activity: Abnormal gait Speech: Unremarkable Language: Adequate Fund of Knowledge: Inadequate Attention and Concentration: Adequate Memory: Impaired (difficult to assess due to uncooperative behavior) Mood: Irritable Affect: Flat Thought Process & Associations: Other (concrete) Thought Content: Other Hallucination Type: None Delusion Type: None Suicidal Ideation: No Suicidal Plan: No Suicidal Intention: No Homicidal Ideation: No Homicidal Plan: No Homicidal Intention: No Insight: Poor Judgment: Poor Results Vitals/IOs Vital Signs Date Time Temp Pulse Resp B/P (MAP) Pulse Ox O2 Delivery O2 Flow Rate FiO2 08/10/17 06:49 98.1 71 18 143/65 (91) 93 08/07/17 12:06 Room Air Assessment & Plan Problem List: (1) 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 Estimated LOS: days Justification for Cont. Inpt. risk of decompensation Tawana Argueta MD August 10, 2017 14:33
[2017-08-10 17:27] VITALS: BP 121/89; PULSE 76; RESP 20; TEMP 98.4; O2SAT 95
[2017-08-10] MEDS: ATORVASTATIN 20 MG TAB PO SCH (21:24)
[2017-08-10] MEDS: MONTELUKAST SODIUM 10 MG TAB PO SCH (21:25)
[2017-08-11 06:00] VITALS: BP 163/82; PULSE 80; RESP 16; TEMP 98.2; O2SAT 94
[2017-08-11] MEDS: CYANOCOBALAMIN 1,000 MCG TAB PO SCH (09:00)
[2017-08-11] MEDS: metFORMIN HCL 500 MG TAB PO SCH (09:19)
[2017-08-11] MEDS: POTASSIUM CHLORIDE 10 MEQ CAP PO SCH (09:19)
[2017-08-11] MEDS: NIFEdipine 30 MG SUSTAINED RELEASE TAB PO SCH (09:19)
[2017-08-11] MEDS: levETIRAcetam 500 MG TAB PO SCH (09:19)
[2017-08-11] MEDS: PANTOPRAZOLE SOD 40 MG DELAYED RELEASE TAB PO SCH (09:19)
[2017-08-11] MEDS: MULTIVITAMIN TAB PO SCH (09:19)
[2017-08-11] MEDS: QUEtiapine FUMARATE 25 MG TAB PO SCH (09:19)
--- NOTE | 2017-08-11 11:15 | PD.TTN ---
Patient Problems 1. Discharge planning 2. Medication compliance 3. Knowledge deficit 4. Lack of coping skills Progress Toward Goals Provider Present: Dr. Ashely Hernandez Provider Input: Pt to be discharged depending on success with home services, counselor to follow-up. Nurse(s) Present: Jaja Nurse(s) Input: Pt has functional blindness as complication. Psychiatric Counselors Present: Angie Velasquez [facility] Psych Therapist Input: Counselor to research available at home services; COA, meals on wheels, MNA, HHC, Spouse is opposed per last week's discussions. Group Spec/RT/OT/AARON Present: GALEN Gardner Group Spec/RT/OT/ARAON Input: pt does not attend groups, most isolates to his room Discharge Plan Preference is for pt to return home with services; per OT, Counselor, . Documentation Scribe: arleen lopez ms, otr Arleen Lopez OTR August 11, 2017 11:15
[2017-08-11] MEDS ORDERED: MONT10TA2 PO (13:17)
[2017-08-11] MEDS ORDERED: POTA10CA PO (13:17)
[2017-08-11] MEDS ORDERED: NIFE30TA8 PO (13:17)
[2017-08-11] MEDS ORDERED: CALC250 PO (13:17)
[2017-08-11] MEDS ORDERED: GABA800T PO (13:17)
[2017-08-11] MEDS ORDERED: PANT40TA3 PO (13:17)
[2017-08-11] MEDS ORDERED: VITA10002 PO (13:17)
[2017-08-11] MEDS ORDERED: METF500 PO (13:17)
[2017-08-11] MEDS ORDERED: ARIC5TAB6 PO (13:17)
[2017-08-11] MEDS ORDERED: LEVE500 PO (13:17)
[2017-08-11] MEDS ORDERED: THERTAB15 PO (13:17)
[2017-08-11] MEDS ORDERED: ATOR20TA15 PO (13:17)
[2017-08-11] MEDS ORDERED: SERO25TA PO (13:17)
--- NOTE | 2017-08-12 07:45 | HHI.DS ---
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 Pt reports memory loss and inability to care for self. Nursing staff report that pt has been oriented X4 on unit and has been engaging in self care and other activities on unit. During interview, pt is not cooperative. He states that he is at [place] but states that he does not know the date or year. He closes eyes and refuses to answer questions. He states that he and his are arguing because she has been running around with a girlfriend. Pt will not answer any additional questions. Staff report that pt is allegedly facing legal charges of a sexual nature. : Family psychiatric history: Denies Past psychiatric history: Previous psychiatric diagnoses of depression,one previous psychiatric admission last week Substance use history: Alcohol use times a week usually 6-8 beers at a time or episodes of withdrawal. Patient denies any previous other substances. 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 Collateral contact () [employer] - [phone]. Tobacco Use In Past 30 Days: No Tobacco Past 30 Days Alcohol Use: Monthly or Less Hospital Course Patient is a 67-year-old man, , domiciled with , has 3 adult children, unemployed [employer] benefits, with past history of depression, no previous psychiatric admissions, previous suicide of self-injurious behavior, with substance use history significant for Crohn's, with a past medical history significant for EVENT DECORATOR shunt from hemorrhagic stroke, CVA with residual left-sided weakness, COPD, CAD triple bypass, hypertension, dementia was recently discharged from the inpatient unit and was not let into his home by his and was later found in parking lot which brought patient to the ED and was subsequently admitted to the inpatient psychiatry for further evaluation. Patient was continued on quetiapine 12.5mg PO BID and medication regimen for chronic medical illnesses. Patient recently discharged from the inpatient unit back to his home where patient was unable to enter his home was later found in parking lot with syncopal episode which patient was brought back to the emergency room and readmitted to inpatient psychiatry unit for further assistance in safe discharge as patient's was not present at patients home when he was initially discharged back there. Patient continued to maintain stable mood, with no manic, depressive or psychotic symptoms noted. He was calm and cooperative with staff, compliant with medications and had no behavioral disturbances since admission. Patients was contacted again and agreed on discharge plan which included patient being able to access his home with food left for him until services would commence to provide support ( evaluation for home health aid, visiting nurse, meals on wheels and PT/OT evaluation). Upon discharge patient stated feeling good, stated feeling okay with returning back home; noted to be calm and cooperative and stated that he would be willing to continue treatment and follow-up. He agreed to continuing medical recommendations, treatment and cooperate for continuity of care. Patient; denies SI, HI, AVH or delusions. Supportive psychotherapy provided. Patient advised to call 911 or go nearest ED in case of emergency. Patient agreed with plan. Results Blood Pressure 163 / 82 Vital Signs Date Time Temp Pulse Resp B/P (MAP) Pulse Ox O2 Delivery O2 Flow Rate FiO2 08/11/17 06:00 98.2 80 16 163/82 (109) 94 Laboratory Results Test 08/08/17 06:35 Cholesterol Level 91 MG/DL (120-200) HDL Cholesterol 49.8 MG/DL (40.0-60.0) Hemoglobin A1c 5.5 % (4.3-6.0) LDL Cholesterol 26 MG/DL (0-99) Triglycerides Level 78 MG/DL (42-150) Summary of Procedures None Imaging Last Impressions Head CT 08/06/171806 Signed Impressions: Service Date/Time: Sunday, August 06, 2017 18:37 - CONCLUSION: 1. No acute abnormality seen. 2. EVENT DECORATOR shunt tubing in place. 3. Mild persistent dilatation of the ventricular system. 4. Low-density in the periventricular white matter likely related to small vessel ischemic change. 5. Encephalomalacia in the right parietal and right occipital lobes. Bridger Packer MD Pending results at discharge: No Medications # of Antipsychotic meds at D/C: 1 Approp Antipsych med options 1 - Minimum of three failed multiple trials of monotherapy. 2 - Documented plan to taper to monotherapy due to previous use of multiple meds OR cross-taper in progress at D/C. 3 - Documentation of augmentation of Clozapine. 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 ICD Code: F01.51 - Vascular dementia with behavioral disturbance Status: Acute Pt Condition on Discharge: Stable Discharge Disposition: Disch w/ Home Health Serv Discharge Instructions Diet Instructions: Heart Healthy Diet Activities you can perform: Weight Bearing as Mel Scheduled Appointment: PCP Appointment Date: August 15, 2017 Appointment Time: 10:20am Discharge Time > 30 minutes Mental Status Examination Appearance: Appropriate Consciousness: Alert Orientation: Person, Place Motor Activity: Abnormal gait Speech: Unremarkable Language: Adequate Fund of Knowledge: Inadequate Attention and Concentration: Adequate Memory: Impaired (Surrounding events of admission) Mood: Appropriate Affect: Appropriate Thought Process & Associations: Other (concrete) Thought Content: Other Hallucination Type: None Delusion Type: None Suicidal Ideation: No Suicidal Plan: No Suicidal Intention: No Homicidal Ideation: No Homicidal Plan: No Homicidal Intention: No Insight: Poor Judgment: Poor Discharge/Advance Care Plan Health Problems: (1) 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 Boyd Hernandez at Smoking is Dangerous to Your Health. Avoid second hand smoking Boyd Hernandez MD August 12, 2017 07:45
--- NOTE | 2017-08-12 16:24 | PD.TTN ---
Patient Problems 1. Discharge planning 2. Medication compliance 3. Knowledge deficit 4. Lack of coping skills Progress Toward Goals Provider Present: Dr. Ashely Hernandez Provider Input: 08/11/17 spoke with family anticipatd discharge with [facility] home today Pt to be discharged depending on success with home services, counselor to follow-up. Nurse(s) Present: Jaja Nurse(s) Input: 08/11/17 stable Pt has functional blindness as complication. Psychiatric Counselors Present: Nicolasa Pérez LCSW, Angie Velasquez, [facility] [place] Psych Therapist Input: 08/11/17 patient is compliant and can return home with services if will allow him home Counselor to research available at home services; COA, meals on wheels, MNA, HHC, Spouse is opposed per last week's discussions. Group Spec/RT/OT/AARON Present: GALEN Gardner Group Spec/RT/OT/AARON Input: 08/11/17 isolates, disengages pt does not attend groups, most isolates to his room Discharge Plan Preference is for pt to return home with services; per OT, Counselor, . Documentation Scribe: arleen lopez ms, otr Nicolasa Pérez LCSW August 12, 2017 16:24
== END 2017-08-11 15:05 | disposition home or self-care (01) | DRG 884 ==
LOC: NEPE 17:50 → NEDA 08-07 16:44 → H260 08-07 17:30 → H250 08-08 19:07
PROVIDERS: ADMIT Student in an Organized Health Care Education/Training Program; ATTEND Student in an Organized Health Care Education/Training Program
DX: F01.51 Vascular dementia, unspecified severity, with behavioral disturbance (principal); I69.354 Hemiplegia and hemiparesis following cerebral infarction affecting left non-dominant side; J44.9 Chronic obstructive pulmonary disease, unspecified; R41.9 Unspecified symptoms and signs involving cognitive functions and awareness; Z98.2 Presence of cerebrospinal fluid drainage device; I25.10 Atherosclerotic heart disease of native coronary artery without angina pectoris; Z95.1 Presence of aortocoronary bypass graft; I10 Essential (primary) hypertension; E11.9 Type 2 diabetes mellitus without complications; Z79.84 Long term (current) use of oral hypoglycemic drugs; R26.9 Unspecified abnormalities of gait and mobility
CPT/HCPCS: 70450; 80048; 80053; 80061; 82550; 82552; 83036; 83735; 84484; 85025; 93005; 96360; J7030

== ENCOUNTER 2017-08-12 16:48 | Inpatient (IN) | payer OTHER, MEDICARE ==
[~2017-08-12] VITALS: Ht 177.8 cm; Wt 107.6 kg
[~2017-08-12 16:48] MED LIST changes: -ALPR.25 PO; -ASPI1TAB57 PO; -CALC1TAB12 PO; -CYAN1SUB PO; -HYDR-3288 PO; -LIPI40TA PO; -MULT-65 PO; -NITR50VP; -OMEP40CA2 PO; -POTA10TA15; -PROZ20CA11 PO
[2017-08-12 16:51] VITALS: PULSE 91; RESP 20; TEMP 99.7; O2SAT 99
[2017-08-12] MEDS ORDERED: SODIUM CHLORIDE 0.9% FLUSH 10 ML FLUSH IVF PRN (17:00)
--- NOTE | 2017-08-12 17:15 | PD ---
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 As per EMS, patient was at home and had 4 witnessed syncopal episodes by his . Patient denies any chest pain or shortness of breath with a syncopal episode, patient reports that he has poor short-term memory and cannot remember what happened. Patient does remember that he has history of CVAs - he does have history of left sided deficits which is residual from a CVA. Patient's blood sugar was 126 by EMS, EKG was unremarkable. He is taking a baby aspirin daily. PFSH Past Medical History Hx Anticoagulant Therapy: Yes Arthritis: Yes Asthma: Yes Anxiety: Yes Depression: Yes Cancer: No Cardiac Catheterization: Yes (x15, 4 STENTS ) Cardiovascular Problems: Yes High Cholesterol: Yes COPD: Yes Cerebrovascular Accident: Yes Dementia: Yes (post cva) Diabetes: Yes Patient Takes Glucophage: No Diminished Hearing: Yes (CURRENTLY HAVING DIFFICULTY HEARING) Endocrine: Yes Gastrointestinal Disorders: Yes (BARRETTS SYNDROME) Genitourinary: No Headaches: Yes Hepatitis: No Hiatal Hernia: No Hypertension: Yes Immune Disorder: No Implanted Vascular Access Dvce: Yes Musculoskeletal: Yes (NEUROPATHY) Neurologic: Yes (MAY 2016 STROKE, L SIDE WEAKNESS) Psychiatric: Yes (Dementia after stroke, depression) Reproductive: No Respiratory: Yes (COPD) Myocardial Infarction: Yes (X 2) Seizures: No Thyroid Disease: No Influenza Vaccination: Yes Past Surgical History Abdominal Surgery: Yes (gastric bypass) AICD: No Body Medical Devices: STENTS, STERNAL WIRES, SHUNT Cardiac Surgery: Yes (15 CATHS AND 4 STENTS PLACED.TRIPLE BYPASS.) Coronary Artery Bypass Graft: Yes (x3) Joint Replacement: No Neurologic Surgery: Yes (LIBRARY TECHNICIAN SHUNT PLACED 09/05/16, SURGERY FOR HEMM. STROKE ) Pacemaker: No Other Surgery: Yes Social History Alcohol Use: Yes (MODERATE) Tobacco Use: No Substance Use: No Allergies-Medications (Allergen,Severity, Reaction): Coded Allergies: cephalexin (Verified Allergy, Severe, EDEMA THROAT, 08/12/17) lovastatin (Verified Allergy, Severe, 08/12/17) sertraline (Verified Allergy, Severe, "VERY SEVERE OFF BALANCE AND DIARRHEA", 08/12/17) Uncoded Allergies: CLINORIL (Allergy, Unknown, 09/04/16) Reported Meds & Prescriptions Reported Meds & Active Scripts Active Thera Tablet (Multivitamin with Folic Acid) 400 Mcg Tablet 1 Tab PO DAILY 30 Days Vitamin B-12 (Cyanocobalamin) 1,000 Mcg Tab 6,000 Mcg PO DAILY 30 Days Glucophage (Metformin HCl) 500 Mg Tab 500 Mg PO DAILY 30 Days Pantoprazole (Pantoprazole Sodium) 40 Mg Tab 40 Mg PO DAILY 30 Days Potassium Chloride ER (Potassium Chloride) 10 Meq Cap 10 Meq PO DAILY 30 Days Oyster Shell 250 mg + Vit D Tb (Calcium/Vitamin D) 250 Mg Calcium (625 Mg)-125 Unit Tablet 500 Mg PO BID 30 Days Seroquel (Quetiapine Fumarate) 25 Mg Tab 12.5 Mg PO BID 30 Days Gabapentin 800 Mg Tab 800 Mg PO BID 30 Days Nifedipine ER 24 HR (Nifedipine) 30 Mg Tab 30 Mg PO DAILY 30 Days Atorvastatin (Atorvastatin Calcium) 20 Mg Tab 20 Mg PO HS 30 Days Singulair (Montelukast Sodium) 10 Mg Tab 10 Mg PO HS 30 Days Keppra (Levetiracetam) 500 Mg Tab 1,000 Mg PO Q12HR 30 Days Aricept (Donepezil HCl) 5 Mg Tablet 5 Mg PO HS 30 Days Reported Coq-10 (Coenzyme Q10 (Ubidecarenone)) 30 Mg Cap PO DAILY Review of Systems General / Constitutional: No: Fever Eyes: No: Visual changes HENT: No: Headaches Cardiovascular: No: Chest Pain or Discomfort Respiratory: No: Shortness of Breath Gastrointestinal: No: Abdominal Pain Genitourinary: No: Dysuria Musculoskeletal: No: Pain Skin: No Rash Neurologic: Positive: Syncope, No: Weakness Psychiatric: No: Depression Endocrine: No: Polydipsia Hematologic/Lymphatic: No: Easy Bruising Physical Exam Narrative GENERAL: mild distress SKIN: Focused skin assessment warm/dry. HEAD: Atraumatic. Normocephalic. EYES: Pupils equal and round. No scleral icterus. No injection or drainage. ENT: No nasal bleeding or discharge. Mucous membranes pink and moist. NECK: Trachea midline. No JVD. CARDIOVASCULAR: Regular rate and rhythm. No murmur appreciated. RESPIRATORY: No accessory muscle use. Clear to auscultation. Breath sounds equal bilaterally. GASTROINTESTINAL: Abdomen soft, non-tender, nondistended. Hepatic and splenic margins not palpable. MUSCULOSKELETAL: No obvious deformities. No clubbing. No cyanosis. No edema. NEUROLOGICAL: Awake and alert. No obvious cranial nerve deficits. Motor grossly within normal limits. Normal speech. PSYCHIATRIC: Flat mood and affect; insight and judgment normal. Data Data Last Documented VS Vital Signs Date Time Temp Pulse Resp B/P (MAP) Pulse Ox O2 Delivery O2 Flow Rate FiO2 08/12/17 17:26 18 98 Room Air 08/12/17 16:51 99.7 91 Orders Orders Electrocardiogram (08/12/17 17:00) Complete Blood Count With Diff (08/12/17 17:00) Comprehensive Metabolic Panel (08/12/17 17:00) Magnesium (Mg) (08/12/17 17:00) B-Type Natriuretic Peptide (08/12/17 17:00) Ckmb (Isoenzyme) Profile (08/12/17 17:00) Troponin I (08/12/17 17:00) Act Partial Throm Time (Ptt) (08/12/17 17:00) Prothrombin Time / Inr (Pt) (08/12/17 17:00) Chest, Single Ap (08/12/17 17:00) Ct Brain W/O Iv Contrast(Rout) (08/12/17 17:00) Blood Glucose (08/12/17 17:00) Ecg Monitoring (08/12/17 17:00) Iv Access Insert/Monitor (08/12/17 17:00) Oximetry (08/12/17 17:00) Sodium Chloride 0.9% Flush (Ns Flush) (08/12/17 17:00) CKMB (08/12/17 11:15) CKMB% (08/12/17 11:15) Orthostatic Vital Signs (08/12/17 19:04) Aspirin (Aspirin) (08/12/17 19:30) Place In Observation (08/12/17 ) Vital Signs (Adult) Q4H (08/12/17 19:36) Activity Oob With Assistance (08/12/17 19:36) Annual Campaign Manager / Telemetry .CONTINUOUS (08/12/17 19:36) Diet Regular Basic (08/13/17 Breakfast) Sodium Chloride 0.9% Flush (Ns Flush) (08/12/17 19:45) Sodium Chloride 0.9% Flush (Ns Flush) (08/12/17 21:00) Acetaminophen (Tylenol) (08/12/17 19:45) Ondansetron Inj (Zofran Inj) (08/12/17 19:45) Resp Oxygen Sarthak C Titrat 1-4 L (08/12/17 ) Pt Request For Service (08/12/17 19:36) Scd Bilateral/Knee High LATONYA.BID (08/12/17 19:36) Naloxone Inj (Narcan Inj) (08/12/17 19:45) Magnesium Hydroxide Liq (Milk Of Magnesi (08/12/17 19:45) Sennosides (Senokot) (08/12/17 19:45) Bisacodyl Supp (Dulcolax Supp) (08/12/17 19:45) Lactulose Liq (Lactulose Liq) (08/12/17 19:45) Eeg Study (08/12/17 ) Us Carotid Arteries Comp Bilat (08/12/17 ) Echo 2d Comp With Doppler (08/12/17 ) Orthostatic Blood Pressure (08/12/17 19:36) Labs Laboratory Tests Test 08/12/17 11:15 White Blood Count 7.0 TH/MM3 Red Blood Count 5.65 MIL/MM3 Hemoglobin 14.9 GM/DL Hematocrit 45.1 % Mean Corpuscular Volume 79.8 FL Mean Corpuscular Hemoglobin 26.4 PG Mean Corpuscular Hemoglobin Concent 33.1 % Red Cell Distribution Width 15.3 % Platelet Count 194 TH/MM3 Mean Platelet Volume 9.2 FL Neutrophils (%) (Auto) 71.5 % Lymphocytes (%) (Auto) 16.1 % Monocytes (%) (Auto) 9.9 % Eosinophils (%) (Auto) 1.4 % Basophils (%) (Auto) 1.1 % Neutrophils # (Auto) 5.0 TH/MM3 Lymphocytes # (Auto) 1.1 TH/MM3 Monocytes # (Auto) 0.7 TH/MM3 Eosinophils # (Auto) 0.1 TH/MM3 Basophils # (Auto) 0.1 TH/MM3 CBC Comment DIFF FINAL Differential Comment Prothrombin Time 11.8 SEC Prothromb Time International Ratio 1.2 RATIO Activated Partial Thromboplast Time 23.2 SEC Blood Urea Nitrogen 15 MG/DL Creatinine 1.66 MG/DL Random Glucose 89 MG/DL Total Protein 7.3 GM/DL Albumin 3.6 GM/DL Calcium Level 8.6 MG/DL Magnesium Level 1.9 MG/DL Alkaline Phosphatase 83 U/L Aspartate Amino Transf (AST/SGOT) 20 U/L Alanine Aminotransferase (ALT/SGPT) 25 U/L Total Bilirubin 0.3 MG/DL Sodium Level 143 MEQ/L Potassium Level 4.0 MEQ/L Chloride Level 108 MEQ/L Carbon Dioxide Level 26.1 MEQ/L Anion Gap 9 MEQ/L Estimat Glomerular Filtration Rate 41 ML/MIN Total Creatine Kinase 144 U/L Creatine Kinase MB 2.2 NG/ML Troponin I LESS THAN 0.02 NG/ML B-Type Natriuretic Peptide 15 PG/ML MDM Medical Decision Making Medical Screen Exam Complete: Yes Emergency Medical Condition: Yes Medical Record Reviewed: Yes Interpretation(s) EKG at 1658: NSR at 90bpm, qt/qtc: 358/405, no acute st or t wave changes Vital Signs Date Time Temp Pulse Resp B/P (MAP) Pulse Ox O2 Delivery O2 Flow Rate FiO2 08/12/17 16:51 99.7 91 20 99 Differential Diagnosis Syncope, ACS, arrhythmia, electrolyte abnormality, seizure episode Narrative Course During the course of the patients emergency department visit, the patients history, examination, and differential diagnosis were reviewed with the patient. The patient was placed on a equipment monitor phototypesetting with oximetry and frequent blood pressure monitoring. The patient had an IV access obtained and blood work sent for analysis. The patient was initially provided aspirin The patients laboratory studies were reviewed and remarkable for ' Laboratory Tests Test 08/12/17 11:15 White Blood Count 7.0 TH/MM3 (4.0-11.0) Red Blood Count 5.65 MIL/MM3 (4.50-5.90) Hemoglobin 14.9 GM/DL (13.0-17.0) Hematocrit 45.1 % (39.0-51.0) Mean Corpuscular Volume 79.8 FL (80.0-100.0) Mean Corpuscular Hemoglobin 26.4 PG (27.0-34.0) Mean Corpuscular Hemoglobin Concent 33.1 % (32.0-36.0) Red Cell Distribution Width 15.3 % (11.6-17.2) Platelet Count 194 TH/MM3 (150-450) Mean Platelet Volume 9.2 FL (7.0-11.0) Neutrophils (%) (Auto) 71.5 % (16.0-70.0) Lymphocytes (%) (Auto) 16.1 % (9.0-44.0) Monocytes (%) (Auto) 9.9 % (0.0-8.0) Eosinophils (%) (Auto) 1.4 % (0.0-4.0) Basophils (%) (Auto) 1.1 % (0.0-2.0) Neutrophils # (Auto) 5.0 TH/MM3 (1.8-7.7) Lymphocytes # (Auto) 1.1 TH/MM3 (1.0-4.8) Monocytes # (Auto) 0.7 TH/MM3 (0-0.9) Eosinophils # (Auto) 0.1 TH/MM3 (0-0.4) Basophils # (Auto) 0.1 TH/MM3 (0-0.2) CBC Comment DIFF FINAL Differential Comment Prothrombin Time 11.8 SEC (9.8-11.6) Prothromb Time International Ratio 1.2 RATIO Activated Partial Thromboplast Time 23.2 SEC (24.3-30.1) Blood Urea Nitrogen 15 MG/DL (7-18) Creatinine 1.66 MG/DL (0.60-1.30) Random Glucose 89 MG/DL (74-106) Total Protein 7.3 GM/DL (6.4-8.2) Albumin 3.6 GM/DL (3.4-5.0) Calcium Level 8.6 MG/DL (8.5-10.1) Magnesium Level 1.9 MG/DL (1.5-2.5) Alkaline Phosphatase 83 U/L (45-117) Aspartate Amino Transf (AST/SGOT) 20 U/L (15-37) Alanine Aminotransferase (ALT/SGPT) 25 U/L (12-78) Total Bilirubin 0.3 MG/DL (0.2-1.0) Sodium Level 143 MEQ/L (136-145) Potassium Level 4.0 MEQ/L (3.5-5.1) Chloride Level 108 MEQ/L (98-107) Carbon Dioxide Level 26.1 MEQ/L (21.0-32.0) Anion Gap 9 MEQ/L (5-15) Estimat Glomerular Filtration Rate 41 ML/MIN (>89) Total Creatine Kinase 144 U/L (39-308) Creatine Kinase MB 2.2 NG/ML (0.5-3.6) Troponin I LESS THAN 0.02 NG/ML B-Type Natriuretic Peptide 15 PG/ML (0-100) Labs and studies reviewed, patient was discharged today from the hospital after psychiatric evaluation and went home and had syncopal episodes. Patient will need medical evaluation for his syncope along with having psychiatry evaluation. Case reviewed with Dr. Saxena who accepts patient to service. ct resulted: patient with CONCLUSION: 1. Multiple new findings when compared to prior examination including interval development of right frontal parenchymal hemorrhages, right-sided subarachnoid hemorrhage extending from low to high convexity, and focal subarachnoid hemorrhage in the left frontal polar region. 2. Ventriculostomy and craniotomy stable in appearance. There is a new focal collection of gas adjacent to the right mid convexity parietal skull. call made to neurosurgery as well as account associate and dr. saxena patient was seen by Dr. Trejo as he was admitted last week as ct of head showed: new tiny area of spontaneously dense material high along the LEFT cerebral vertex suspicious for SMALL punctate hemorrhagic contusion with stable old infarcts in the right occipital lobe and left basal ganglia Findings today who new frontal parenchymal hemorrhages and right sided SAH case reviewed with Dr. Mcgarry who will see patient as a consult Dr. Saxena notified of ct findings, will admit to icu under his service Critical Care Narrative Aggregate critical care time was 45 minutes. Time to perform other separately billable procedures was not included in the critical care time. My time did not include minutes spent treating any other patients simultaneously or on activities that did not directly contribute to the patient's treatment. The services I provided to this patient were to treat and/or prevent clinically significant deterioration that could result in: , decompensation, deterioration I provided critical care services requiring my management, as noted below: Chart data review, documentation time, medication orders and management, vital sign assessments/reviewing monitor data, ordering and reviewing lab tests, ordering and interpreting/reviewing x-rays and diagnostic studies, care of the patient and discussion of the patient with the admitting physicians. Diagnosis Primary Impression: Syncope and collapse Additional Impressions: Intracranial hemorrhage Subarachnoid hemorrhage Admitting Information Admitting Physician Requests: Admit Janny Caldera DO August 12, 2017 17:15
[2017-08-12 17:26] VITALS: RESP 18; O2SAT 98
--- NOTE | 2017-08-12 17:26 | RADRPT ---
EXAM DATE: 08/12/2017 5:19 PM EDT AGE/SEX: 67 years / Male INDICATIONS: Palpitations. CLINICAL DATA: This is the patient's initial encounter. Patient reports that signs and symptoms have been present for 1 day and indicates a pain score of Nonresponsive. MEDICAL/SURGICAL HISTORY: . Stroke. Hypertension. Diabetes CABG. Shunt. COMPARISON: [facility] – [place] S[place] AP, 07/29/2017. . FINDINGS: A single AP view of the chest demonstrates the lungs to be symmetrically aerated without e vidence of mass, infiltrate or effusion. Mild elevation of the right hemidiaphragm. There is mild pro minence of the pulmonary vasculature. The cardiomediastinal contours are unremarkable and stable. The re is evidence of previous cardiothoracic surgery.. Osseous structures are intact. CONCLUSION: No new or acute pulmonary infiltrates. No significant change compared to the prior exam. Mild pulmonary venous congestion. Electronically signed by: Vitaliy Blanton MD 08/12/2017 5:24 PM EDT
[2017-08-12 17:45] LABS: BASOPHIL # 0.1 TH/MM3 (0-0.2); BASOPHIL % 1.1 % (0.0-2.0); EOSINOPHIL # 0.1 TH/MM3 (0-0.4); EOSINOPHIL % 1.4 % (0.0-4.0); HEMATOCRIT 45.1 % (39.0-51.0); HEMOGLOBIN 14.9 GM/DL (13.0-17.0); LYMPH % 16.1 % (9.0-44.0); LYMPHOCYTE # 1.1 TH/MM3 (1.0-4.8); MEAN CELL VOLUME 79.8 FL (80.0-100.0); MEAN CORPUSCULAR HEMOGLOBIN 26.4 PG (27.0-34.0); MEAN CORPUSCULAR HGB CONC 33.1 % (32.0-36.0); MEAN PLATELET VOLUME 9.2 FL (7.0-11.0); MONO % 9.9 % (0.0-8.0); MONOCYTE # 0.7 TH/MM3 (0-0.9); NEUT % 71.5 % (16.0-70.0); PLATELET COUNT 194 TH/MM3 (150-450); RED BLOOD COUNT 5.65 MIL/MM3 (4.50-5.90); RED CELL DISTRIBUTION WIDTH 15.3 % (11.6-17.2)
[2017-08-12 17:50] LABS: INTERNATIONAL NORMALIZED RATIO 1.2 RATIO; PROTHROMBIN TIME - PATIENT 11.8 SEC (9.8-11.6)
[2017-08-12 18:01] LABS: ALBUMIN 3.6 GM/DL (3.4-5.0); ALT (GPT) 25 U/L (12-78); AST (GOT) 20 U/L (15-37); BICARBONATE 26.1 MEQ/L (21.0-32.0); BLOOD UREA NITROGEN 15 MG/DL (7-18); CALCIUM 8.6 MG/DL (8.5-10.1); CHLORIDE 108 MEQ/L (98-107); CREATININE 1.66 MG/DL (0.60-1.30); GLOMERULAR FILTRATION RATE 41 ML/MIN (>89); GLUCOSE,RANDOM 89 MG/DL (74-106); MAGNESIUM 1.9 MG/DL (1.5-2.5); SODIUM (NA) 143 MEQ/L (136-145)
[2017-08-12 18:06] LABS: ALKALINE PHOSPHATASE 83 U/L (45-117); TOTAL BILIRUBIN ADULT 0.3 MG/DL (0.2-1.0); TOTAL PROTEIN 7.3 GM/DL (6.4-8.2); TROPONIN I LESS THAN 0.02 NG/ML (0.02-0.05)
--- NOTE | 2017-08-12 18:51 | EKG ---
Date Performed: 08/12/2017 Time Performed: 16:58:42 PTAGE: 67 years EKG: Sinus rhythm NORMAL ECG No significant change from prior electrocardiogram. PREVIOUS TRACING : 08/06/2017 18.22 DOCTOR: Tunde Coronado Interpretating Date/Time 08/12/2017 18:50:36
[2017-08-12] MEDS ORDERED: ASPIRIN 325 MG TAB PO ONE (19:30)
--- NOTE | 2017-08-12 19:36 | RADRPT ---
EXAM DATE: 08/12/2017 7:18 PM EDT AGE/SEX: 67 years / Male INDICATIONS: Syncope. CLINICAL DATA: This is the patient's initial encounter. Patient reports that signs and symptoms have been present for 1 day and indicates a pain score of 0/10. MEDICAL/SURGICAL HISTORY: Cardiovascular disease. Hypertension. Chronic obstructive pulmonary dis ease. Dementia. Diabetes. Asthma. Craniotomy. Shunt. RADIATION DOSE: 40.39 CTDI (mGy) ; Patient motion COMPARISON: [facility] – [place], CT BRAIN W/O CONTRAST, 08/06/2017. . TECHNIQUE: CT of the head without contrast. Using automated exposure control and adjustment of the mA and/or kV according to patient size, radiation dose was kept as low as reasonably achievable to ob tain optimal diagnostic quality images. FINDINGS: Right frontal ventriculostomy catheter tip remains projected in the third ventricle. Interval develo pment of multifocal punctate hemorrhages in the right frontal orbital region and interval development of subarachnoid blood extending along the right temporal and parietal region from low convexity to h ighest convexity. There are a few small areas of hyperdensity along the surface of the left frontal p olar cortex suggesting left-sided subarachnoid hemorrhage as well. The craniotomy flap is stable in c onfiguration when compared to 08/06/2017. There is a small hypodensity seen laterally in the right pos terior parietal region, bone window #16, suggesting a new small collection of gas. The ventricles are symmetric in size. No evidence of midline shift. There is also interval development of scalp swelling right parietal and occipital extending from mid to high convexity. Posterior fossa structures are intact and stable in appearance. CONCLUSION: 1. Multiple new findings when compared to prior examination including interval development of right frontal parenchymal hemorrhages, right-sided subarachnoid hemorrhage extending from low to high conve xity, and focal subarachnoid hemorrhage in the left frontal polar region. 2. Ventriculostomy and craniotomy stable in appearance. There is a new focal collection of gas adjac ent to the right mid convexity parietal skull. Electronically signed by: Toni Kirkland MD 08/12/2017 7:35 PM EDT
[2017-08-12] MEDS ORDERED: LACTULOSE SYRUP 20 GM/30 ML CUP PO PRN (19:45)
[2017-08-12] MEDS ORDERED: BISACODYL 10 MG SUPP RECTAL PRN (19:45)
[2017-08-12] MEDS ORDERED: MAGNESIUM HYDROXIDE SUSP 30 ML CUP PO PRN (19:45)
[2017-08-12] MEDS ORDERED: NALOXONE HCL 0.4 MG/ML AMP IV PUSH PRN (19:45)
[2017-08-12] MEDS ORDERED: SODIUM CHLORIDE 0.9% FLUSH 10 ML FLUSH IV FLUSH PRN (19:45)
[2017-08-12] MEDS ORDERED: SENNOSIDES 8.6 MG TAB PO PRN (19:45)
[2017-08-12 19:57] VITALS: BP 148/85; PULSE 93; RESP 18; O2SAT 96
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
[2017-08-12] MEDS ORDERED: ONDANSETRON ODT 4 MG TAB PO PRN (20:00)
--- NOTE | 2017-08-12 20:03 | HHI.HP ---
[facility] Unknown Admission Diagnosis Intracranial hemorrhage, syncope Diagnoses: Chief Complaint: Multiple syncopal episodes. Travel History International Travel<30 Days: No Contact w/Intl Traveler <30 Da: No Traveled to Known Affected Are: No History of Present Illness Mr. Gtz is a 67-year-old male with a history of dementia, coronary artery disease, CVA, hypertension who was brought to the hospital due to multiple syncopal episodes today. Patient's noted that he had 4 episodes of syncope. He did not lose control of his bowel or bladder. No jerking movements. No tongue biting. Patient's blood sugar was 126 by EMS, EKG was unremarkable. On arrival temperature 99.7F pulse 91 respiration 20 blood pressure 148/85, pulse oximetry 99% on room air. CT head shows frontal parenchymal hemorrhage, right-sided subarachnoid hemorrhage extending from low to high convexity and focal subarachnoid hemorrhage in the left frontal polar region. Neurosurgery was consulted. 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 Reported Medications Thera Tablet (Multivitamin with Folic Acid) 400 Mcg Tablet 1 Tab PO DAILY 30 Days Vitamin B-12 (Cyanocobalamin) 1,000 Mcg Tab 6,000 Mcg PO DAILY 30 Days Glucophage (Metformin HCl) 500 Mg Tab 500 Mg PO DAILY 30 Days Pantoprazole (Pantoprazole Sodium) 40 Mg Tab 40 Mg PO DAILY 30 Days Potassium Chloride ER (Potassium Chloride) 10 Meq Cap 10 Meq PO DAILY 30 Days Oyster Shell 250 mg + Vit D Tb (Calcium/Vitamin D) 250 Mg Calcium (625 Mg)-125 Unit Tablet 500 Mg PO BID 30 Days Seroquel (Quetiapine Fumarate) 25 Mg Tab 12.5 Mg PO BID 30 Days Gabapentin 800 Mg Tab 800 Mg PO BID 30 Days Nifedipine ER 24 HR (Nifedipine) 30 Mg Tab 30 Mg PO DAILY 30 Days Atorvastatin (Atorvastatin Calcium) 20 Mg Tab 20 Mg PO HS 30 Days Singulair (Montelukast Sodium) 10 Mg Tab 10 Mg PO HS 30 Days Keppra (Levetiracetam) 500 Mg Tab 1,000 Mg PO Q12HR 30 Days Aricept (Donepezil HCl) 5 Mg Tablet 5 Mg PO HS 30 Days Reported Coq-10 (Coenzyme Q10 (Ubidecarenone)) 30 Mg Cap PO DAILY Allergies: Coded Allergies: cephalexin (Verified Allergy, Severe, EDEMA THROAT, 08/12/17) lovastatin (Verified Allergy, Severe, 08/12/17) sertraline (Verified Allergy, Severe, "VERY SEVERE OFF BALANCE AND DIARRHEA", 08/12/17) Uncoded Allergies: CLINORIL (Allergy, Unknown, 09/04/16) Family History Father with heart disease, mother had brain cancer. Social History Alcohol Use: Yes (MODERATE) Tobacco Use: No Substance Use: No Physical Exam Vital Signs Vital Signs Date Time Temp Pulse Resp B/P (MAP) Pulse Ox O2 Delivery O2 Flow Rate FiO2 08/12/17 19:57 93 18 148/85 (106) 96 Room Air 08/12/17 17:26 18 98 Room Air 08/12/17 16:51 99.7 91 20 99 Physical Exam GENERAL: This is a well-nourished, well-developed patient, in no apparent distress. Heart, oriented to person, place. Knows the name of the president. SKIN: No rashes, ecchymoses or lesions. Warm and dry. HEAD: Atraumatic. Normocephalic. No temporal or scalp tenderness. EYES: Pupils equal round and reactive. No injection or drainage. ENT: Nose without bleeding, purulent drainage or septal hematoma. Airway patent. NECK: Trachea midline. No lymphadenopathy. Supple, nontender, no meningeal signs. CARDIOVASCULAR: Regular rate and rhythm without murmurs, gallops, or rubs. No JVD. RESPIRATORY: Clear to auscultation. Breath sounds equal bilaterally. No wheezes , rales, or rhonchi. GASTROINTESTINAL: Abdomen soft, non-tender, nondistended. No guarding. MUSCULOSKELETAL: Extremities without clubbing, cyanosis, or edema. NEUROLOGICAL: Awake and alert. Cranial nerves II through XII intact. No focal neurological deficits. Normal speech. Laboratory Laboratory Tests Test 08/12/17 11:15 White Blood Count 7.0 Red Blood Count 5.65 Hemoglobin 14.9 Hematocrit 45.1 Mean Corpuscular Volume 79.8 Mean Corpuscular Hemoglobin 26.4 Mean Corpuscular Hemoglobin Concent 33.1 Red Cell Distribution Width 15.3 Platelet Count 194 Mean Platelet Volume 9.2 Neutrophils (%) (Auto) 71.5 Lymphocytes (%) (Auto) 16.1 Monocytes (%) (Auto) 9.9 Eosinophils (%) (Auto) 1.4 Basophils (%) (Auto) 1.1 Neutrophils # (Auto) 5.0 Lymphocytes # (Auto) 1.1 Monocytes # (Auto) 0.7 Eosinophils # (Auto) 0.1 Basophils # (Auto) 0.1 CBC Comment DIFF FINAL Differential Comment Prothrombin Time 11.8 Prothromb Time International Ratio 1.2 Activated Partial Thromboplast Time 23.2 Blood Urea Nitrogen 15 Creatinine 1.66 Random Glucose 89 Total Protein 7.3 Albumin 3.6 Calcium Level 8.6 Magnesium Level 1.9 Alkaline Phosphatase 83 Aspartate Amino Transf (AST/SGOT) 20 Alanine Aminotransferase (ALT/SGPT) 25 Total Bilirubin 0.3 Sodium Level 143 Potassium Level 4.0 Chloride Level 108 Carbon Dioxide Level 26.1 Anion Gap 9 Estimat Glomerular Filtration Rate 41 Total Creatine Kinase 144 Creatine Kinase MB 2.2 Troponin I LESS THAN 0.02 B-Type Natriuretic Peptide 15 Result Diagram: 08/12/17 1115 08/12/17 1115 Imaging Last Impressions Head CT 08/12/17 1700 Signed Impressions: CONCLUSION: Chest X-Ray 08/12/17 1700 Signed Impressions: CONCLUSION: No new or acute pulmonary infiltrates. No significant change compar ed to the prior exam. Mild pulmonary venous congestion. Caprini VTE Risk Assessment Caprini VTE Risk Assessment: Mod/High Risk (score >= 2) Caprini Risk Assessment Model Point Value = 1 Point Value = 2 Point Value = 3 Point Value = 5 Age 41-60 Minor surgery BMI > 25 kg/m2 Swollen legs Varicose veins or History of unexplained or recurrent spontaneous Oral contraceptives or hormone replacement Sepsis (< 1 month) Serious lung disease, including pneumonia (< 1 month) Abnormal pulmonary function Acute myocardial infarction Congestive heart failure (< 1 month) History of inflammatory bowel disease Medical patient at bed rest Age 61-74 Arthroscopic surgery Major open surgery (> 45 min) Laparoscopic surgery (> 45 min) Malignancy Confined to bed (> 72 hours) Immobilizing plaster cast Central venous access Age >= 75 History of VTE Family history of VTE Factor V Leiden Prothrombin [id number] Lupus anticoagulant Anticardiolipin antibodies Elevated serum homocysteine Heparin-induced thrombocytopenia Other congenital or acquired thrombophilia Stroke (< 1 month) Elective arthroplasty Hip, pelvis, or leg fracture Acute spinal cord injury (< 1 month) Prophylaxis Regimen Total Risk Factor Score Risk Level Prophylaxis Regimen 0-1 Low Early ambulation 2 Moderate Order ONE of the following: *Sequential Compression Device (SCD) *Heparin 5000 units SQ BID 3-4 Higher Order ONE of the following medications: *Heparin 5000 units SQ TID *Enoxaparin/Lovenox 40 mg SQ daily (WT < 150 kg, CrCl > 30 mL/min) *Enoxaparin/Lovenox 30 mg SQ daily (WT < 150 kg, CrCl > 10-29 mL/min) *Enoxaparin/Lovenox 30 mg SQ BID (WT < 150 kg, CrCl > 30 mL/min) AND/OR *Sequential Compression Device (SCD) 5 or more Highest Order ONE of the following medications: *Heparin 5000 units SQ TID (Preferred with Epidurals) *Enoxaparin/Lovenox 40 mg SQ daily (WT < 150 kg, CrCl > 30 mL/min) *Enoxaparin/Lovenox 30 mg SQ daily (WT < 150 kg, CrCl > 10-29 mL/min) *Enoxaparin/Lovenox 30 mg SQ BID (WT < 150 kg, CrCl > 30 mL/min) AND *Sequential Compression Device (SCD) Assessment and Plan Problem List: (1) Intracranial hemorrhage ICD Code: I62.9 - Nontraumatic intracranial hemorrhage, unspecified Status: Acute (2) Subarachnoid hemorrhage ICD Code: I60.9 - Nontraumatic subarachnoid hemorrhage, unspecified Status: Acute (3) Syncope and collapse ICD Code: R55 - Syncope and collapse Status: Acute (4) COPD (chronic obstructive pulmonary disease) ICD Code: J44.9 - Chronic obstructive pulmonary disease, unspecified Status: Chronic (5) Coronary artery disease ICD Code: I25.10 - Atherosclerotic heart disease of [place] coronary artery without angina pectoris Status: Chronic (6) Hypertension ICD Code: I10 - Essential (primary) hypertension Status: Chronic Assessment and Plan Mr. Gtz is a pleasant 67-year-old male with a history of COPD, hypertension, CAD and CVA who was brought to the hospital due to multiple episodes of syncope. ED workup indicated intraparenchymal hemorrhage, subarachnoid hemorrhage. Neurosurgery was consulted. No surgical intervention at this point. Intraparenchymal hemorrhage Subarachnoid hemorrhage -Appreciate neurosurgery input. No surgical intervention. We will continue to do neuro checks. -Hold aspirin for now. Syncope -Multiple episodes of syncope. Will obtain carotid ultrasound, echocardiogram and maintain telemetry. -Obtain orthostatic blood pressure COPD CAD status post CABG and stent placements Hypertension -Currently stable from COPD and CAD standpoint. Blood pressure is within reasonable range. -DuoNeb as needed Patient will likely need jail care - RESIDENTIAL vs. intermediate card tender mcc. DNR. SCDs. Avoid pharmacological DVT prophylaxis. Physician Certification 2 Midnight Certification Type: Admission for Inpatient Services Order for Inpatient Services The services are ordered in accordance with Medicare regulations or non- Medicare payer requirements, as applicable. In the case of services not specified as inpatient-only, they are appropriately provided as inpatient services in accordance with the 2-midnight benchmark. Estimated LOS (days): 2 days is the estimated time the patient will need to remain in the hospital, assuming treatment plan goals are met and no additional complications. Post-Hospital Plan: Not yet determined Ketan Saxena DO August 12, 2017 8:03 pm
[2017-08-12] MEDS: SODIUM CHLORIDE 0.9% FLUSH 10 ML FLUSH IV FLUSH SCH (21:08)
[2017-08-12] MEDS ORDERED: RESP: ALBUTEROL 2.5 MG/IPRATROPIUM 0.5 MG NEB (PRN) NEB (22:15)
[2017-08-12] MEDS ORDERED: PILL SPLITTER OTHER PRN (22:15)
[2017-08-12 22:22] VITALS: O2SAT 96
[2017-08-12 22:52] VITALS: BP 159/79; PULSE 86; RESP 16; TEMP 98.4; O2SAT 97
[2017-08-12] MEDS: ACETAMINOPHEN 325 MG TAB PO PRN (23:06)
[2017-08-12 23:53] VITALS: BP_SYST 138; BP_SYST 151; BP_SYST 172; BP_DIAS 75; BP_DIAS 81; BP_DIAS 83
[2017-08-13] VITALS (8 sets, daily range): BP systolic 136–149; BP diastolic 61–83; PULSE 79–100; RESP 16–20; TEMP 97.4–98.6; O2SAT 92–98
[2017-08-13] MEDS ORDERED: GABAPENTIN 400 MG CAP PO SCH (09:00)
[2017-08-13] MEDS ORDERED: PANTOPRAZOLE SOD 40 MG DELAYED RELEASE TAB PO SCH (09:00)
[2017-08-13] MEDS: MULTIVITAMIN TAB PO SCH (09:14)
[2017-08-13] MEDS: SODIUM CHLORIDE 0.9% FLUSH 10 ML FLUSH IV FLUSH SCH ×2 (09:14→21:22)
[2017-08-13] MEDS: CYANOCOBALAMIN 1,000 MCG TAB PO SCH (09:15)
[2017-08-13] MEDS: levETIRAcetam 500 MG TAB PO SCH (09:15)
[2017-08-13] MEDS: NIFEdipine 30 MG SUSTAINED RELEASE TAB PO SCH (09:15)
[2017-08-13] MEDS: CALCIUM/VITAMIN D 250 MG/125 U TAB PO SCH ×2 (09:16→21:22)
[2017-08-13] MEDS: QUEtiapine FUMARATE 25 MG TAB PO SCH (09:16)
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
--- NOTE | 2017-08-13 12:20 | RADRPT ---
EXAM DATE: 08/13/2017 12:11 PM EDT AGE/SEX: 67 years / Male INDICATIONS: Syncope. CLINICAL DATA: This is the patient's initial encounter. Patient reports that signs and symptoms have been present for 1 day and indicates a pain score of Nonresponsive. MEDICAL/SURGICAL HISTORY: Hypercholesterolemia. Chronic obstructive pulmonary disease. Hypert ension. Hearing loss. Dementia. Cerebrovascular accident. Myocardial infarction. Headaches. Anticoag ulant therapy. Arthritis. Diabetes. Depression. Anxiety. ETOH abuse. Neuropathy. Triana's syndrome. Gastric bypass. CABG. Coronary artery stent. Knee and shoulder surgery. COMPARISON: No prior [facility] exams available for comparison. VELOCITY PARAMETERS: ICA/CCA Ratio: Right 2.0 , Left 1.0 ICA: Right 104.2 cm/sec, Left 81.4 cm/sec CCA: Right 52.6 cm/sec, Left 78.9 cm/sec ECA: Right 197.6 cm/sec, Left 101.6 cm/sec Vertebral: Right 35.1 cm/sec antegrade, Left 42.7 cm/sec antergrade FINDINGS: Right Carotid: Intimal thickening with mild to moderate heterogeneous plaque is identified in the ri ght carotid system. There is no significant spectral broadening or hemodynamically significant stenos is. ICA/CCA ratio is characteristic of a mild to moderate stenosis in the 30-49% range. Left Carotid: Mild heterogeneous plaque and intimal thickening. There is no evidence of spectral bro adening or hemodynamically significant stenosis. Other: Antegrade flow in both vertebral arteries. CONCLUSION: 1. [id number] plaque in the right carotid system with evidence of [id number] stenosis in the proximal ICA measuring in the 3049% range. There is no evidence of hemodynamically significant s tenosis. 2. Mild plaque without evidence of stenosis in the left carotid system. 3. Antegrade flow in both vertebral arteries. Electronically signed by: Mika Galindo MD 08/13/2017 12:19 PM EDT
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
--- NOTE | 2017-08-13 14:29 | HHI.PR ---
Subjective Remarks NO further seizures, patient very sleepy. Discussed patient w RN NO syncopal episodes Patient wakes up briefly but very lethargic. Objective Vitals Vital Signs Date Time Temp Pulse Resp B/P (MAP) Pulse Ox O2 Delivery O2 Flow Rate FiO2 08/13/17 13:38 79 08/13/17 11:58 98.5 83 20 146/79 (101) 96 08/13/17 07:50 92 21 08/13/17 07:36 98.5 86 20 149/70 (96) 98 08/13/17 04:43 98.6 83 16 141/83 (102) 98 08/13/17 00:07 18 08/12/17 23:53 172/81 (111) 151/83 (105) 138/75 (96) 08/12/17 22:52 98.4 86 16 159/79 (105) 97 08/12/17 22:25 08/12/17 22:22 96 08/12/17 19:57 93 18 148/85 (106) 96 Room Air 08/12/17 17:26 18 98 Room Air 08/12/17 16:51 99.7 91 20 99 I/O 08/12/17 08/12/17 08/12/17 08/13/17 08/13/17 08/13/17 07:00 15:00 23:00 07:00 15:00 23:00 Intake Total 240 ml Balance 240 ml Intake Oral 240 ml # Voids 1 Result Diagram: 08/12/17 1115 08/12/17 1115 Imaging Last Impressions Carotid Artery Ultrasound 08/13/17 0000 Signed Impressions: CONCLUSION: Head CT 08/12/17 1700 Signed Impressions: CONCLUSION: Chest X-Ray 08/12/17 1700 Signed Impressions: CONCLUSION: No new or acute pulmonary infiltrates. No significant change compar ed to the prior exam. Mild pulmonary venous congestion. Objective Remarks Lethargic, briefly wakes up and goes to sleep. NAD Clear lungs BL S1S2 RRR abdomen soft, nt, nd no edema in lower extremities Medications and IVs Current Medications Medications (Trade) Dose Ordered Sig/Chaz Route Start Time Stop Time Status Last Admin (NS Flush) 2 ml UNSCH PRN IV FLUSH 08/12/17 19:45 (NS Flush) 2 ml BID IV FLUSH 08/12/17 21:00 08/13/17 09:14 (Tylenol) 650 mg Q4H PRN PO 08/12/17 19:45 08/12/17 23:06 (Zofran Odt) 4 mg Q6H PRN PO 08/12/17 20:00 (Narcan Inj) 0.4 mg UNSCH PRN IV PUSH 08/12/17 19:45 (Milk Of Magnesia Liq) 30 ml Q12H PRN PO 08/12/17 19:45 (Senokot) 17.2 mg Q12H PRN PO 08/12/17 19:45 (Dulcolax Supp) 10 mg DAILY PRN RECTAL 08/12/17 19:45 (Lactulose Liq) 30 ml DAILY PRN PO 08/12/17 19:45 (Lipitor) 20 mg HS PO 08/13/17 21:00 (Oscal-D 250-125) 500 mg BID PO 08/13/17 09:00 08/13/17 09:16 (Vitamin B12) 6,000 mcg DAILY PO 08/13/17 09:00 08/13/17 09:15 (Aricept) 5 mg HS PO 08/13/17 21:00 (Neurontin) 800 mg BID PO 08/13/17 09:00 08/13/17 09:15 (Keppra) 1,000 mg Q12HR PO 08/13/17 09:00 08/13/17 09:15 (Singulair) 10 mg HS PO 08/13/17 21:00 (Theragran) 1 tab DAILY PO 08/13/17 09:00 08/13/17 09:14 (Procardia Xl) 30 mg DAILY PO 08/13/17 09:00 08/13/17 09:15 (Protonix) 40 mg DAILY PO 08/13/17 09:00 08/13/17 09:15 (SEROquel) 12.5 mg BID PO 08/13/17 09:00 08/13/17 09:16 (Duoneb Neb) 1 ampule Q4HR NEB PRN NEB 08/12/17 22:15 (Pill Splitter) 1 ea UNSCH PRN OTHER 08/12/17 22:15 A/P Problem List: (1) Intracranial hemorrhage ICD Code: I62.9 - Nontraumatic intracranial hemorrhage, unspecified Status: Acute (2) Subarachnoid hemorrhage ICD Code: I60.9 - Nontraumatic subarachnoid hemorrhage, unspecified Status: Acute (3) Syncope and collapse ICD Code: R55 - Syncope and collapse Status: Acute (4) COPD (chronic obstructive pulmonary disease) ICD Code: J44.9 - Chronic obstructive pulmonary disease, unspecified Status: Chronic (5) Coronary artery disease ICD Code: I25.10 - Atherosclerotic heart disease of [place] coronary artery without angina pectoris Status: Chronic (6) Hypertension ICD Code: I10 - Essential (primary) hypertension Status: Chronic Assessment and Plan Mr. Gtz is a pleasant 67-year-old male with a history of COPD, hypertension, CAD and CVA who was brought to the hospital due to multiple episodes of syncope. ED workup indicated intraparenchymal hemorrhage, subarachnoid hemorrhage. Neurosurgery was consulted. No surgical intervention at this point. Intraparenchymal hemorrhage Subarachnoid hemorrhage Seizure disorder Encephalopathy -CT of the head showed multiple new findings when compared to prior examination include interval development of right frontal parenchymal hemorrhages, right-sided subarachnoid hemorrhage extending from low to high convexity, and focal subarachnoid hemorrhage in the left frontal polar region. Ventriculostomy and craniotomy stable in appearance. There is a new focal collection of gas adjacent in the right mid convexity parietal skull. -Repeat head CT today as per neurosurgery recommendations. -Patient is on Keppra 1000 mg p.o. twice daily. Continue. Patient had an EEG on 08/03/17 which showed some mild slowing possibly left more than right but no epileptiform features. -Continue to monitor neuro checks, seizure precaution. -Hold all neuroleptic medications including gabapentin, Aricept, Keppra. Check a swallow evaluation with speech therapy. -Hold Aricept Seroquel for dementia given encephalopathy with lethargy. Multiple syncopal episodes. -Unclear etiology. No arrhythmias on telemetry. -Carotid artery ultrasound does not show any hemodynamically significant stenosis. -2D echo Pending. -We will check orthostatic blood pressure. Acute kidney injury -Creatinine went up to 1.6 on 08/10/17. I will check a BMP. Placed on IV fluids in the form of normal saline since the patient is mostly lethargic and likely not eating or drinking well. -Check kidney ultrasound. Hypertension Hyper lipidemia -Blood pressure seems to be stable. Continue nifedipine 30 minutes p.o. daily. -Continue statin COPD -Seems to be stable. I will check ABG since patient is lethargic. -Continue montelukast. DVT prophylaxis: SCDs, no chemoprophylaxis given the patient's intracranial hemorrhage. GI reflexes: Hold PPI given acute kidney injury. Discharge Planning Continue to monitor the medical floor. Patient very lethargic. Neymar Jaimes MD August 13, 2017 14:29
[2017-08-13] MEDS: ACETAMINOPHEN 325 MG TAB PO PRN (15:01)
--- NOTE | 2017-08-13 15:02 | RADRPT ---
EXAM DATE: 08/13/2017 2:53 PM EDT AGE/SEX: 67 years / Male INDICATIONS: F/U intracerebral hemorrhage. CLINICAL DATA: This is the patient's subsequent encounter. Patient reports that signs and symptoms h ave been present for 3 weeks and indicates a pain score of 0/10. MEDICAL/SURGICAL HISTORY: Cerebrovascular disease. Cardiovascular disease. Hypertension. diabeti c,dementia,COPD . SHUNT RADIATION DOSE: 56.35 CTDI (mGy) COMPARISON: [facility] [place], CT BRAIN W/O CONTRAST, 08/12/2017. . TECHNIQUE: CT of the head without contrast. Using automated exposure control and adjustment of the mA and/or kV according to patient size, radiation dose was kept as low as reasonably achievable to ob tain optimal diagnostic quality images. FINDINGS: Today's examination is compared to the prior study of 08/12/2017. The right ventricular catheter remai ns in place. There continues to be some subarachnoid hemorrhage overlying the right convexity. There is stable intraparenchymal hemorrhage with some surrounding edema in the low right frontal lobe. This was present on the prior study and appears to be about the same. There is some focal subarachnoid he morrhage along the right mid temporal location. There has been a slight decrease in size of the later al ventricles compared to the prior exam. There is a small amount of hemorrhage within the posterior horn of the right lateral ventricle. No significant mass effect or midline shift is seen. There is st able chronic white matter changes bilaterally. The right-sided craniotomy flap appears to be in good position. The posterior fossa is unremarkable and stable. Compared to the prior study no significant changes are demonstrated. CONCLUSION: 1. Compared to the prior exam has been no significant changes with the overall appearance of the bra in. 2. No significant change in the intraparenchymal hemorrhage involving the right frontal lobe. No sig nificant change in the subarachnoid hemorrhage along the right cerebral hemisphere. 3. There is a right ventricular catheter in place. There has been a slight decrease in the size of t he lateral ventricles compared to the prior study. Electronically signed by: Vitaliy Blanton MD 08/13/2017 3:01 PM EDT
[2017-08-13] MEDS: SODIUM CHLOR 0.9% 1000 ML INJ 1,000 ML IV SCH (15:52)
--- NOTE | 2017-08-13 16:16 | PQ ---
Physician Query Response Document PATIENT: ANITRA WELSH : 1950 ADMIT DATE: 08/12/2017 8:36 PM DISCH DATE: RESPONDING PROVIDER #: [email or web address] QUERY TEXT: CDS Clarification Obesity in this patient with BMI 44.3 Other explanation of clinical findings. Unable to determine (no explanation for clinical findings). The patient's Clinical Indicators include: The medical record reflects the following clinical findings, treatment, and risk factors. Please clarify and document your clinical opinion in the progress notes and discharge summary includi ng the definitive and/or presumptive diagnosis (suspected or probable), related to the above clinical findings. Please include clinical findings supporting your diagnosis. Thank you, Vonda Funk CDS: Vonda Funk Patient Unit: [id number] Contact Number: [phone] Room: [facility] Query created by: Vonda Funk on 08/13/2017 2:11 PM RESPONSE TEXT: Obesity in this patient with a BMI of 44.3. Electronically signed by: Neymar Lake MD 08/13/2017 4:12 PM
[2017-08-13 18:17] LABS: AUTOMATED NEUTROPHIL # 7.4 TH/MM3 (1.8-7.7); BASOPHIL # 0.1 TH/MM3 (0-0.2); BASOPHIL % 1.5 % (0.0-2.0); EOSINOPHIL % 0.5 % (0.0-4.0); HEMATOCRIT 43.7 % (39.0-51.0); HEMOGLOBIN 14.4 GM/DL (13.0-17.0); LYMPHOCYTE # 1.4 TH/MM3 (1.0-4.8); MEAN CELL VOLUME 79.3 FL (80.0-100.0); MEAN CORPUSCULAR HEMOGLOBIN 26.2 PG (27.0-34.0); MEAN PLATELET VOLUME 9.1 FL (7.0-11.0); MONO % 8.6 % (0.0-8.0); MONOCYTE # 0.8 TH/MM3 (0-0.9); NEUT % 75.4 % (16.0-70.0); PLATELET COUNT 177 TH/MM3 (150-450); RED CELL DISTRIBUTION WIDTH 14.9 % (11.6-17.2); WHITE BLOOD COUNT 9.8 TH/MM3 (4.0-11.0)
[2017-08-13 18:33] LABS: ALBUMIN 3.7 GM/DL (3.4-5.0); AST (GOT) 20 U/L (15-37); BICARBONATE 27.9 MEQ/L (21.0-32.0); BLOOD UREA NITROGEN 10 MG/DL (7-18); CHLORIDE 105 MEQ/L (98-107); CREATININE 1.19 MG/DL (0.60-1.30); GLOMERULAR FILTRATION RATE 61 ML/MIN (>89); GLUCOSE,RANDOM 122 MG/DL (74-106); MAGNESIUM 1.9 MG/DL (1.5-2.5); SODIUM (NA) 140 MEQ/L (136-145)
[2017-08-13 18:34] LABS: ALT (GPT) 24 U/L (12-78)
[2017-08-13 18:37] LABS: ALKALINE PHOSPHATASE 79 U/L (45-117); PHOSPHORUS 2.6 MG/DL (2.5-4.9); TOTAL BILIRUBIN ADULT 0.7 MG/DL (0.2-1.0); TOTAL PROTEIN 7.5 GM/DL (6.4-8.2)
[2017-08-13] MEDS ORDERED: DONEPEZIL HCL 5 MG TAB PO SCH (21:00)
[2017-08-13] MEDS: ATORVASTATIN 20 MG TAB PO SCH (21:23)
[2017-08-13] MEDS: MONTELUKAST SODIUM 10 MG TAB PO SCH (21:23)
[2017-08-14] MEDS: SODIUM CHLOR 0.9% 1000 ML INJ 1,000 ML IV SCH ×2 (02:25→12:31)
[2017-08-14 07:10] LABS: HEMATOCRIT 43.3 % (39.0-51.0); HEMOGLOBIN 14.6 GM/DL (13.0-17.0); MEAN CELL VOLUME 78.6 FL (80.0-100.0); MEAN CORPUSCULAR HEMOGLOBIN 26.5 PG (27.0-34.0); MEAN CORPUSCULAR HGB CONC 33.7 % (32.0-36.0); MEAN PLATELET VOLUME 9.8 FL (7.0-11.0); PLATELET COUNT 181 TH/MM3 (150-450); RED BLOOD COUNT 5.51 MIL/MM3 (4.50-5.90); WHITE BLOOD COUNT 10.3 TH/MM3 (4.0-11.0)
[2017-08-14 07:34] LABS: BICARBONATE 27.5 MEQ/L (21.0-32.0); CREATININE 1.08 MG/DL (0.60-1.30)
[2017-08-14 08:00] VITALS: BP 153/70; PULSE 93; RESP 18; TEMP 98.9; O2SAT 98
--- NOTE | 2017-08-14 08:05 | MG ---
cc: Manny Robert MD EEG NUMBER: [id number] INDICATIONS: BUSINESS ANALYTICS INTERN shunt, neuropathy, falls. MEDICATIONS: Lipitor, Aricept, gabapentin, Seroquel, Keppra. DESCRIPTION: Diffuse 5 Hz slowing is seen. No hemisphere asymmetry is noted. No epileptiform or seizure activity is seen. Photic stimulation is performed without significant posterior driving. Hyperventilation is not performed. IMPRESSION: Consistent with a moderate diffuse encephalopathy. No focal abnormality was noted. No seizure activity was seen. Manny Robert MD DJM/DL , 07:55 AM , 08:04 AM
[2017-08-14] MEDS: SODIUM CHLORIDE 0.9% FLUSH 10 ML FLUSH IV FLUSH SCH ×2 (09:29→20:21)
[2017-08-14] MEDS: MULTIVITAMIN TAB PO SCH (09:30)
[2017-08-14] MEDS: CALCIUM/VITAMIN D 250 MG/125 U TAB PO SCH ×2 (09:31→20:20)
[2017-08-14] MEDS: NIFEdipine 30 MG SUSTAINED RELEASE TAB PO SCH (09:32)
[2017-08-14] MEDS: CYANOCOBALAMIN 1,000 MCG TAB PO SCH (09:36)
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
[2017-08-14 10:51] VITALS: O2SAT 98
[2017-08-14] MEDS: ACETAMINOPHEN 325 MG TAB PO PRN (12:32)
--- NOTE | 2017-08-14 14:22 | RADRPT ---
EXAM DATE: 08/14/2017 2:07 PM EDT AGE/SEX: 67 years / Male INDICATIONS: Trauma CLINICAL DATA: This is the patient's subsequent encounter. Patient reports that signs and symptoms h ave been present for 4 - 6 days and indicates a pain score of Nonresponsive. MEDICAL/SURGICAL HISTORY: Chronic obstructive pulmonary disease. Hypertension. Cardiovascular dis ease. None. RADIATION DOSE: 42.90 CTDI (mGy) COMPARISON: [facility] [place], CT BRAIN W/O CONTRAST, 08/13/2017. . TECHNIQUE: CT of the head without contrast. Using automated exposure control and adjustment of the mA and/or kV according to patient size, radiation dose was kept as low as reasonably achievable to ob tain optimal diagnostic quality images. FINDINGS: Stable right sided ventriculostomy with tip near the third ventricle. Evolving subarachnoid blood pro ducts overlying the right cerebral hemisphere extending toward the vertex. Evolving right frontal int ra-axial hemorrhage. Stable intraventricular blood products. Ventricles are stable in size. Redemonst ration of prominent periventricular white matter hypodensities and moderate diffuse cerebral atrophy. Cerebellum and brainstem appear intact. Basilar cisterns are maintained. Remainder of exam is unchan ged. CONCLUSION: 1. No significant interval change. 2. Evolving right frontal intraparenchymal hemorrhage, subarachnoid hemorrhage overlying the right h emisphere and small amount of intraventricular hemorrhage. 3. No intercurrent hemorrhage. 4. Stable right frontal ventriculostomy catheter with stable ventricle size. Electronically signed by: Ned Martínez MD 08/14/2017 2:21 PM EDT
--- NOTE | 2017-08-14 14:28 | HHI.PR ---
Subjective Remarks Patient is more awake. Denies chest pain or shortness of breath. Denies abdominal pain, nausea, vomiting or diarrhea. Patient has been afebrile. Patient complains of headache. Objective Vitals Vital Signs Date Time Temp Pulse Resp B/P (MAP) Pulse Ox O2 Delivery O2 Flow Rate FiO2 08/14/17 10:51 98 21 08/14/17 08:00 98.9 93 18 153/70 (97) 98 08/13/17 20:00 97.6 84 16 141/74 (96) 94 08/13/17 16:31 85 08/13/17 15:58 97.4 100 20 136/61 (86) 96 I/O 08/13/17 08/13/17 08/13/17 08/14/17 08/14/17 08/14/17 07:00 15:00 23:00 07:00 15:00 23:00 Intake Total 240 ml 336 ml Balance 240 ml 336 ml Intake Oral 240 ml IV Total 336 ml # Voids 1 1 # Bowel Movements 1 Result Diagram: 08/14/17 0540 08/14/17 0540 Imaging Last Impressions Head CT 08/13/17 0000 Signed Impressions: CONCLUSION: 1. Compared to the prior exam has been no significant changes with the overall appearance of the brain. 2. No significant change in the intraparenchymal hemorrhage involving the righ t frontal lobe. No significant change in the subarachnoid hemorrhage along the right cerebral hemisphere. 3. There is a right ventricular catheter in place. There has been a slight dec rease in the size of the lateral ventricles compared to the prior study. Carotid Artery Ultrasound 08/13/17 0000 Signed Impressions: CONCLUSION: 1. [id number] plaque in the right carotid system with evidence of mild-t o-moderate stenosis in the proximal ICA measuring in the 3049% range. There is no evidence of hemodynamically significant stenosis. 2. Mild plaque without evidence of stenosis in the left carotid system. 3. Antegrade flow in both vertebral arteries. Chest X-Ray 08/12/17 1700 Signed Impressions: CONCLUSION: No new or acute pulmonary infiltrates. No significant change compar ed to the prior exam. Mild pulmonary venous congestion. Objective Remarks Lethargic, briefly wakes up and goes to sleep. NAD Clear lungs BL S1S2 RRR abdomen soft, nt, nd no edema in lower extremities Medications and IVs Current Medications Medications (Trade) Dose Ordered Sig/Chaz Route Start Time Stop Time Status Last Admin (NS Flush) 2 ml UNSCH PRN IV FLUSH 08/12/17 19:45 (NS Flush) 2 ml BID IV FLUSH 08/12/17 21:00 08/14/17 09:29 (Tylenol) 650 mg Q4H PRN PO 08/12/17 19:45 08/14/17 12:32 (Zofran Odt) 4 mg Q6H PRN PO 08/12/17 20:00 (Narcan Inj) 0.4 mg UNSCH PRN IV PUSH 08/12/17 19:45 (Milk Of Magnesia Liq) 30 ml Q12H PRN PO 08/12/17 19:45 (Senokot) 17.2 mg Q12H PRN PO 08/12/17 19:45 (Dulcolax Supp) 10 mg DAILY PRN RECTAL 08/12/17 19:45 (Lactulose Liq) 30 ml DAILY PRN PO 08/12/17 19:45 (Lipitor) 20 mg HS PO 08/13/17 21:00 08/13/17 21:23 (Oscal-D 250-125) 500 mg BID PO 08/13/17 09:00 08/14/17 09:31 (Vitamin B12) 6,000 mcg DAILY PO 08/13/17 09:00 08/14/17 09:36 (Neurontin) 800 mg BID PO 08/13/17 09:00 Future Hold 08/13/17 09:15 (Keppra) 1,000 mg Q12HR PO 08/13/17 09:00 Future Hold 08/13/17 09:15 (Singulair) 10 mg HS PO 08/13/17 21:00 08/13/17 21:23 (Theragran) 1 tab DAILY PO 08/13/17 09:00 08/14/17 09:30 (Procardia Xl) 30 mg DAILY PO 08/13/17 09:00 08/14/17 09:32 (Protonix) 40 mg DAILY PO 08/13/17 09:00 Future Hold 08/13/17 09:15 (SEROquel) 12.5 mg BID PO 08/13/17 09:00 Future Hold 08/13/17 09:16 (Duoneb Neb) 1 ampule Q4HR NEB PRN NEB 08/12/17 22:15 (Pill Splitter) 1 ea UNSCH PRN OTHER 08/12/17 22:15 Sodium Chloride 1,000 ml @ 84 mls/hr [id number] IV 08/13/17 14:30 08/14/17 12:31 A/P Problem List: (1) Intracranial hemorrhage ICD Code: I62.9 - Nontraumatic intracranial hemorrhage, unspecified Status: Acute (2) Subarachnoid hemorrhage ICD Code: I60.9 - Nontraumatic subarachnoid hemorrhage, unspecified Status: Acute (3) Syncope and collapse ICD Code: R55 - Syncope and collapse Status: Resolved (4) COPD (chronic obstructive pulmonary disease) ICD Code: J44.9 - Chronic obstructive pulmonary disease, unspecified Status: Chronic (5) Coronary artery disease ICD Code: I25.10 - Atherosclerotic heart disease of [place] coronary artery without angina pectoris Status: Chronic (6) Hypertension ICD Code: I10 - Essential (primary) hypertension Status: Chronic Assessment and Plan Mr. Gtz is a pleasant 67-year-old male with a history of COPD, hypertension, CAD and CVA who was brought to the hospital due to multiple episodes of syncope. ED workup indicated intraparenchymal hemorrhage, subarachnoid hemorrhage. Neurosurgery was consulted. No surgical intervention at this point. Intraparenchymal hemorrhage Subarachnoid hemorrhage Seizure disorder Encephalopathy Dementia -CT of the head showed multiple new findings when compared to prior examination include interval development of right frontal parenchymal hemorrhages, right-sided subarachnoid hemorrhage extending from low to high convexity, and focal subarachnoid hemorrhage in the left frontal polar region. Ventriculostomy and craniotomy stable in appearance. There is a new focal collection of gas adjacent in the right mid convexity parietal skull. -Repeat head CT today as per neurosurgery recommendations. -Patient is on Keppra 1000 mg p.o. twice daily. Continue. Patient had an EEG on 08/03/17 which showed some mild slowing possibly left more than right but no epileptiform features. -Continue to monitor neuro checks, seizure precaution. -Hold all neuroleptic medications including gabapentin, Aricept, Keppra. Check a swallow evaluation with speech therapy. -Hold Aricept Seroquel for dementia given encephalopathy with lethargy. 08/14 I will resume Keppra, gabapentin and Aricept. Continue to hold cervical for now. Fu repeat head CT ordered by neurosurgery. Multiple syncopal episodes. -Unclear etiology. No arrhythmias on telemetry. -Carotid artery ultrasound does not show any hemodynamically significant stenosis. -2D echo Pending. -Check orthostatic BP. Acute kidney injury -Creatinine went up to 1.6 on 08/10/17. Suspect prerenal. 08/14 resolved after IV fluid demonstration. Discontinue IV fluids. Hypertension Hyper lipidemia -Blood pressure seems to be stable. Continue nifedipine 30 minutes p.o. daily. -Continue statin COPD -Seems to be stable. -Continue montelukast. Headache -Likely secondary to intercurrent hemorrhage. -08/14 Will give a dose of 2 mg IV morphine now and placed on oral Percocet. DVT prophylaxis: SCDs, no chemoprophylaxis given the patient's intracranial hemorrhage. GI reflexes: Hold PPI given acute kidney injury. Discharge Planning Continue to monitor the medical floor. Neymar Jaimes MD August 14, 2017 14:28
[2017-08-14] MEDS ORDERED: MORPHINE SULFATE 4 MG/ML INJ IV PUSH ONE (14:30)
[2017-08-14 16:00] VITALS: BP 166/79; PULSE 82; RESP 18; TEMP 98.8; O2SAT 96
--- NOTE | 2017-08-14 17:16 | ECHRPT ---
Indication: RECURRENT CONCLUSIONS Normal left ventricular size. Wall thickness is normal. The left ventricular systolic function is severely reduced with an estimated ejection fraction in th e range of 30-35%. Mitral annular calcification is present. There is trace tricuspid valve regurgitation. technically limited study BP: / HR: Rhythm: MEASUREMENTS (Male / Female) Normal Values Technical Quality: 2D ECHO LV Diastolic Diameter PLAX 5.1 cm 4.2 - 5.9 / 3.9 - 5.3 cm LV Systolic Diameter PLAX 4.4 cm IVS Diastolic Thickness 1.4 cm 0.6 - 1.0 / 0.6 - 0.9 cm LVPW Diastolic Thickness 1.1 cm 0.6 - 1.0 / 0.6 - 0.9 cm LV Relative Wall Thickness 0.5 RV Internal Dim ED PLAX 2.1 cm M-MODE Aortic Root Diameter MM 3.0 cm AV Cusp Separation MM 2.0 cm DOPPLER Mitral E Point Velocity 47.4 cm/s Mitral A Point Velocity 70.6 cm/s Mitral E to A Ratio 0.7 TR Peak Velocity 152.0 cm/s TR Peak Gradient 9.2 mmHg Right Atrial Pressure 5.0 mmHg Pulmonary Artery Systolic Pressu 14.2 mmHg Right Ventricular Systolic Press 14.2 mmHg FINDINGS LEFT VENTRICLE Normal left ventricular size. Wall thickness is normal. The left ventricular systolic function is severely reduced with an estimated ejection fraction in th e range of 30-35%. RIGHT VENTRICLE Normal right ventricular size and systolic function. LEFT ATRIUM The left atrial size is normal. RIGHT ATRIUM The right atrial size is normal. ATRIAL SEPTUM Normal atrial septal thickness without atrial level shunting by limited color doppler interrogation. AORTA The aortic root and proximal ascending aorta are normal in size on limited imaging. MITRAL VALVE Mitral annular calcification is present. AORTIC VALVE Trileaflet aortic valve. No aortic valve stenosis or regurgitation. TRICUSPID VALVE There is trace tricuspid valve regurgitation. PULMONARY VALVE No pulmonary valve regurgitation or stenosis. VESSELS The inferior vena cava is normal in size. PERICARDIUM No pericardial effusion. Patricio Colindres MD, FACC, FSCAI (Electronically Signed) Final Date:14 Aug 2017 17:15
[2017-08-14 20:00] VITALS: BP 121/83; PULSE 104; RESP 18; TEMP 98.2; O2SAT 96
[2017-08-14] MEDS ORDERED: LORazepam 2 MG/ML VIAL IV PUSH ONE (20:15)
[2017-08-14] MEDS: ATORVASTATIN 20 MG TAB PO SCH (20:20)
[2017-08-14] MEDS: oxyCODONE/ACETAMINOPHEN 5 MG/325 MG TAB PO PRN (20:20)
[2017-08-14] MEDS: MONTELUKAST SODIUM 10 MG TAB PO SCH (20:20)
[2017-08-15] VITALS (7 sets, daily range): BP systolic 132–174; BP diastolic 77–85; PULSE 75–86; RESP 16–18; TEMP 97.8–99.3; O2SAT 95–98
[2017-08-15] MEDS: CYANOCOBALAMIN 1,000 MCG TAB PO SCH (09:00)
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
[2017-08-15] MEDS: MULTIVITAMIN TAB PO SCH (10:38)
[2017-08-15] MEDS: CALCIUM/VITAMIN D 250 MG/125 U TAB PO SCH ×2 (10:38→22:16)
[2017-08-15] MEDS: NIFEdipine 30 MG SUSTAINED RELEASE TAB PO SCH (10:38)
[2017-08-15] MEDS: SODIUM CHLORIDE 0.9% FLUSH 10 ML FLUSH IV FLUSH SCH ×2 (10:41→22:16)
--- NOTE | 2017-08-15 11:05 | HHI.PR ---
Subjective Remarks Patient denies headache, dizziness. Patient is more sleepy and lethargic than yesterday. Upon review of medication administration record, the patient was given IV Ativan last night. Blood pressure has been noted to be elevated. As per RN report, the patient was very agitated last night and he was yelling at nurses, security had to be called and the patient was administered 1 mg of IV Ativan. Objective Vitals Vital Signs Date Time Temp Pulse Resp B/P (MAP) Pulse Ox O2 Delivery O2 Flow Rate FiO2 08/15/17 09:47 98 08/15/17 04:00 98.3 75 18 174/79 (110) 97 08/15/17 00:00 97.8 86 18 173/85 (114) 95 08/14/17 20:00 98.2 104 18 121/83 (96) 96 08/14/17 16:00 98.8 82 18 166/79 (108) 96 I/O 08/14/17 08/14/17 08/14/17 08/15/17 08/15/17 08/15/17 07:00 15:00 23:00 07:00 15:00 23:00 # Voids 1 1 # Bowel Movements 1 Result Diagram: 08/14/17 0540 08/14/17 0540 Imaging Last Impressions Head CT 08/14/17 0600 Signed Impressions: CONCLUSION: 1. No significant interval change. 2. Evolving right frontal intraparenchymal hemorrhage, subarachnoid hemorrhage overlying the right hemisphere and small amount of intraventricular hemorrhage . 3. No intercurrent hemorrhage. 4. Stable right frontal ventriculostomy catheter with stable ventricle size. Carotid Artery Ultrasound 08/13/17 0000 Signed Impressions: CONCLUSION: 1. Ijhl-tf-[id number] plaque in the right carotid system with evidence of mild-t o-moderate stenosis in the proximal ICA measuring in the 3049% range. There is no evidence of hemodynamically significant stenosis. 2. Mild plaque without evidence of stenosis in the left carotid system. 3. Antegrade flow in both vertebral arteries. Chest X-Ray 08/12/17 1700 Signed Impressions: CONCLUSION: No new or acute pulmonary infiltrates. No significant change compar ed to the prior exam. Mild pulmonary venous congestion. Objective Remarks Lethargic, briefly wakes up and goes to sleep. NAD Clear lungs BL S1S2 RRR abdomen soft, nt, nd no edema in lower extremities A/P Problem List: (1) Intracranial hemorrhage ICD Code: I62.9 - Nontraumatic intracranial hemorrhage, unspecified Status: Acute (2) Subarachnoid hemorrhage ICD Code: I60.9 - Nontraumatic subarachnoid hemorrhage, unspecified Status: Acute (3) Syncope and collapse ICD Code: R55 - Syncope and collapse Status: Resolved (4) COPD (chronic obstructive pulmonary disease) ICD Code: J44.9 - Chronic obstructive pulmonary disease, unspecified Status: Chronic (5) Coronary artery disease ICD Code: I25.10 - Atherosclerotic heart disease of [place] coronary artery without angina pectoris Status: Chronic (6) Hypertension ICD Code: I10 - Essential (primary) hypertension Status: Chronic Assessment and Plan Mr. Gtz is a pleasant 67-year-old male with a history of COPD, hypertension, CAD and CVA who was brought to the hospital due to multiple episodes of syncope. ED workup indicated intraparenchymal hemorrhage, subarachnoid hemorrhage. Neurosurgery was consulted. No surgical intervention at this point. Intraparenchymal hemorrhage Subarachnoid hemorrhage Seizure disorder Encephalopathy Dementia Agitation -CT of the head showed multiple new findings when compared to prior examination include interval development of right frontal parenchymal hemorrhages, right-sided subarachnoid hemorrhage extending from low to high convexity, and focal subarachnoid hemorrhage in the left frontal polar region. Ventriculostomy and craniotomy stable in appearance. There is a new focal collection of gas adjacent in the right mid convexity parietal skull. -Repeat head CT today as per neurosurgery recommendations. -Patient is on Keppra 1000 mg p.o. twice daily. Continue. Patient had an EEG on 08/03/17 which showed some mild slowing possibly left more than right but no epileptiform features. -Continue to monitor neuro checks, seizure precaution. -Hold all neuroleptic medications including gabapentin, Aricept, Keppra. Check a swallow evaluation with speech therapy. -Hold Aricept Seroquel for dementia given encephalopathy with lethargy. 08/15 resume Keppra and Seroquel today. If patient's mentation improved and gabapentin may be resumed. Patient is lethargic today likely secondary to toxic encephalopathy secondary to Ativan administration. I would refrain from administering Ativan and instead administering haloperidol if there should be further agitation Multiple syncopal episodes. -Unclear etiology. No arrhythmias on telemetry. -Carotid artery ultrasound does not show any hemodynamically significant stenosis. - + orthostatic vital signs on 08/12 08/15 echocardiogram shows normal left ventricular size with decreased systolic function severely reduced with an EF of 30-35%. Mitral annular calcification is present. Trace tricuspid valve regurgitation. Continue telemetry. Patient also with positive orthostatic vital signs. I will consult cardiology for further recommendations. Acute kidney injury -Creatinine went up to 1.6 on 08/10/17. Suspect prerenal. 08/14 resolved after IV fluid demonstration. Discontinue IV fluids. Hypertension Hyper lipidemia -Blood pressure seems to be stable. Continue nifedipine 30 minutes p.o. daily. -Continue statin 08/15 blood pressure noted to be elevated prior to patient receiving oral medications in a.m. We will follow-up blood pressure and blood pressure still elevated would increase nifedipine dose. COPD -Seems to be stable. -Continue montelukast. Headache -Likely secondary to intercurrent hemorrhage. -08/15 headache improved. Continue pain control with oral Percocet and IV morphine as needed. DVT prophylaxis: SCDs, no chemoprophylaxis given the patient's intracranial hemorrhage. GI reflexes: Hold PPI given acute kidney injury. Discharge Planning Continue to monitor the medical floor. Neymar Jaimes MD August 15, 2017 11:05
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
[2017-08-15] MEDS: QUEtiapine FUMARATE 25 MG TAB PO SCH (22:16)
[2017-08-15] MEDS: oxyCODONE/ACETAMINOPHEN 5 MG/325 MG TAB PO PRN (22:16)
[2017-08-15] MEDS: ATORVASTATIN 20 MG TAB PO SCH (22:16)
[2017-08-15] MEDS: levETIRAcetam 500 MG TAB PO SCH (22:23)
[2017-08-15] MEDS: MONTELUKAST SODIUM 10 MG TAB PO SCH (22:23)
[2017-08-16] VITALS (7 sets, daily range): BP systolic 132–149; BP diastolic 60–80; PULSE 62–86; RESP 19–20; TEMP 97.3–98.6; O2SAT 95–98
[2017-08-16] MEDS: SODIUM CHLORIDE 0.9% FLUSH 10 ML FLUSH IV FLUSH SCH ×2 (08:17→21:09)
[2017-08-16] MEDS: QUEtiapine FUMARATE 25 MG TAB PO SCH (08:20)
[2017-08-16] MEDS: NIFEdipine 30 MG SUSTAINED RELEASE TAB PO SCH (08:20)
[2017-08-16] MEDS: CALCIUM/VITAMIN D 250 MG/125 U TAB PO SCH ×2 (08:20→21:08)
[2017-08-16] MEDS: MULTIVITAMIN TAB PO SCH (08:20)
[2017-08-16] MEDS: levETIRAcetam 500 MG TAB PO SCH ×2 (08:20→21:09)
[2017-08-16] MEDS: CYANOCOBALAMIN 1,000 MCG TAB PO SCH (08:20)
--- NOTE | 2017-08-16 10:27 | HHI.PR ---
Subjective Remarks Follow-up for altered mental status Lethargic, easily arousable, oriented to place, not agitated. Objective Vitals Vital Signs Date Time Temp Pulse Resp B/P (MAP) Pulse Ox O2 Delivery O2 Flow Rate FiO2 08/16/17 07:40 97.3 79 20 134/79 (97) 97 08/16/17 06:00 98.0 76 20 144/60 (88) 96 08/16/17 00:00 98.6 80 19 140/68 (92) 96 08/15/17 19:41 98.0 77 18 143/77 (99) 95 08/15/17 17:51 95 21 08/15/17 12:02 99.3 80 16 155/84 (107) 95 08/15/17 11:04 98.7 86 18 132/77 (95) 97 I/O 08/15/17 08/15/17 08/15/17 08/16/17 08/16/17 08/16/17 07:00 15:00 23:00 07:00 15:00 23:00 Intake Total 500 ml 550 ml Output Total 0 ml 750 ml Balance 500 ml -200 ml Intake Oral 500 ml 550 ml Output Urine Total 0 ml 750 ml # Voids 1 1 # Bowel Movements 0 0 Result Diagram: 08/14/17 0540 08/14/17 0540 Imaging Last Impressions Head CT 08/14/17 0600 Signed Impressions: CONCLUSION: 1. No significant interval change. 2. Evolving right frontal intraparenchymal hemorrhage, subarachnoid hemorrhage overlying the right hemisphere and small amount of intraventricular hemorrhage . 3. No intercurrent hemorrhage. 4. Stable right frontal ventriculostomy catheter with stable ventricle size. Carotid Artery Ultrasound 08/13/17 0000 Signed Impressions: CONCLUSION: 1. [id number] plaque in the right carotid system with evidence of mild-t o-moderate stenosis in the proximal ICA measuring in the 3049% range. There is no evidence of hemodynamically significant stenosis. 2. Mild plaque without evidence of stenosis in the left carotid system. 3. Antegrade flow in both vertebral arteries. Chest X-Ray 08/12/17 1700 Signed Impressions: CONCLUSION: No new or acute pulmonary infiltrates. No significant change compar ed to the prior exam. Mild pulmonary venous congestion. Objective Remarks Not in distress Lethargic, briefly wakes up and goes to sleep, easily arousable Clear lungs BL S1S2 RRR abdomen soft, nt, nd no edema in lower extremities Neurological exam limited because of patient's mental status. A/P Problem List: (1) Intracranial hemorrhage ICD Code: I62.9 - Nontraumatic intracranial hemorrhage, unspecified Status: Acute (2) Subarachnoid hemorrhage ICD Code: I60.9 - Nontraumatic subarachnoid hemorrhage, unspecified Status: Acute (3) Syncope and collapse ICD Code: R55 - Syncope and collapse Status: Resolved (4) COPD (chronic obstructive pulmonary disease) ICD Code: J44.9 - Chronic obstructive pulmonary disease, unspecified Status: Chronic (5) Coronary artery disease ICD Code: I25.10 - Atherosclerotic heart disease of [place] coronary artery without angina pectoris Status: Chronic (6) Hypertension ICD Code: I10 - Essential (primary) hypertension Status: Chronic Assessment and Plan Mr. Gtz is a pleasant 67-year-old male with a history of COPD, hypertension, CAD and CVA who was brought to the hospital due to multiple episodes of syncope. ED workup indicated intraparenchymal hemorrhage, subarachnoid hemorrhage. Neurosurgery was consulted. No surgical intervention at this point. Intraparenchymal hemorrhage Subarachnoid hemorrhage Seizure disorder Encephalopathy Dementia Agitation -CT of the head showed multiple new findings when compared to prior examination include interval development of right frontal parenchymal hemorrhages, right-sided subarachnoid hemorrhage extending from low to high convexity, and focal subarachnoid hemorrhage in the left frontal polar region. Ventriculostomy and craniotomy stable in appearance. There is a new focal collection of gas adjacent in the right mid convexity parietal skull. -Repeat head CT today as per neurosurgery recommendations. -Patient is on Keppra 1000 mg p.o. twice daily. Continue. Patient had an EEG on 08/03/17 which showed some mild slowing possibly left more than right but no epileptiform features. Continue to monitor neuro checks, seizure precaution. Continue Keppra, will continue to hold gabapentin, hold Seroquel. -Hold all neuroleptic medications including gabapentin, Aricept, Keppra. Swallow evaluation done, thin liquids, mechanical soft. Avoid Ativan,'s hold Percocet. Multiple syncopal episodes. -Unclear etiology. No arrhythmias on telemetry. -Carotid artery ultrasound does not show any hemodynamically significant stenosis. - + orthostatic vital signs on 08/12. Echocardiogram shows normal left ventricular size with decreased systolic function severely reduced with an EF of 30-35%. Cardiology saw the patient, upon review, likely around 60%. Mitral annular calcification is present. Trace tricuspid valve regurgitation. Continue telemetry. Patient also with positive orthostatic vital signs. Cardiology consulted, no further recommendations are than aspirin if okay with neurology. Likely noncardiac origin. Cleared by cardiology for discharge Acute kidney injury -Creatinine went up to 1.6 on 08/10/17. Suspect prerenal. Resolved after IVF. Recheck BMP tomorrow. Hypertension Hyper lipidemia -Blood pressure seems to be stable. Continue nifedipine 30 minutes p.o. daily. -Continue statin. COPD -Seems to be stable. -Continue montelukast. Headache -Likely secondary to intercurrent hemorrhage. Headache improving, stop narcotics. DVT prophylaxis: SCDs, no chemoprophylaxis given the patient's intracranial hemorrhage. GI prophylaxis:: Hold PPI given acute kidney injury. Discharge Planning Discharged to rehab once mental status is better. Alicia Olivera MD August 16, 2017 10:27
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
[2017-08-16] MEDS: ACETAMINOPHEN 325 MG TAB PO PRN (18:40)
[2017-08-16] MEDS: ATORVASTATIN 20 MG TAB PO SCH (21:08)
[2017-08-16] MEDS: MONTELUKAST SODIUM 10 MG TAB PO SCH (21:08)
[2017-08-17 00:14] VITALS: BP 145/62; PULSE 82; RESP 19; TEMP 98.6; O2SAT 97
[2017-08-17 00:54] VITALS: PULSE 87
[2017-08-17] MEDS: NIFEdipine 30 MG SUSTAINED RELEASE TAB PO SCH (07:32)
[2017-08-17] MEDS: CYANOCOBALAMIN 1,000 MCG TAB PO SCH (07:32)
[2017-08-17] MEDS: MULTIVITAMIN TAB PO SCH (07:32)
[2017-08-17] MEDS: levETIRAcetam 500 MG TAB PO SCH ×2 (07:32→21:33)
[2017-08-17] MEDS: CALCIUM/VITAMIN D 250 MG/125 U TAB PO SCH ×2 (07:32→21:33)
[2017-08-17] MEDS: SODIUM CHLORIDE 0.9% FLUSH 10 ML FLUSH IV FLUSH SCH ×2 (07:33→21:34)
[2017-08-17 07:54] VITALS: BP 182/92; PULSE 78; RESP 20; TEMP 97.7; O2SAT 97
[2017-08-17 07:57] LABS: BICARBONATE 27.8 MEQ/L (21.0-32.0); CALCIUM 9.7 MG/DL (8.5-10.1); CREATININE 1.19 MG/DL (0.60-1.30)
[2017-08-17 12:09] VITALS: BP 188/88; PULSE 76; RESP 20; TEMP 98.2; O2SAT 96
[2017-08-17] MEDS ORDERED: LISI-515 PO (12:58)
[2017-08-17] MEDS: LISINOPRIL 20 MG TAB PO SCH (13:11)
[2017-08-17] MEDS ORDERED: QUEtiapine FUMARATE 25 MG TAB PO ONE (14:00)
--- NOTE | 2017-08-17 15:08 | HHI.DS ---
Discharge Summary Admission Date August 12, 2017 at 20:36 Discharge Date: August 17, 2017 Admitting Diagnosis Intracranial hemorrhage, syncope (1) Intracranial hemorrhage ICD Code: I62.9 - Nontraumatic intracranial hemorrhage, unspecified Status: Acute (2) Subarachnoid hemorrhage ICD Code: I60.9 - Nontraumatic subarachnoid hemorrhage, unspecified Status: Acute (3) Syncope and collapse ICD Code: R55 - Syncope and collapse Status: Resolved (4) COPD (chronic obstructive pulmonary disease) ICD Code: J44.9 - Chronic obstructive pulmonary disease, unspecified Status: Chronic (5) Coronary artery disease ICD Code: I25.10 - Atherosclerotic heart disease of [place] coronary artery without angina pectoris Status: Chronic (6) Hypertension ICD Code: I10 - Essential (primary) hypertension Status: Chronic Procedures None Brief History - From Admission Mr. Gtz is a 67-year-old male with a history of dementia, coronary artery disease, CVA, hypertension who was brought to the hospital due to multiple syncopal episodes today. Patient's noted that he had 4 episodes of syncope. He did not lose control of his bowel or bladder. No jerking movements. No tongue biting. Patient's blood sugar was 126 by EMS, EKG was unremarkable. On arrival temperature 99.7F pulse 91 respiration 20 blood pressure 148/85, pulse oximetry 99% on room air. CT head shows frontal parenchymal hemorrhage, right-sided subarachnoid hemorrhage extending from low to high convexity and focal subarachnoid hemorrhage in the left frontal polar region. Neurosurgery was consulted. CBC/BMP: 08/14/17 0540 08/17/17 0628 Significant Findings Laboratory Tests Test 08/17/17 06:28 Random Glucose 125 MG/DL (74-106) Estimat Glomerular Filtration Rate 61 ML/MIN (>89) PE at Discharge Not in distress Lethargic, briefly wakes up and goes to sleep, easily arousable Clear lungs BL S1S2 RRR abdomen soft, nt, nd no edema in lower extremities Neurological exam limited because of patient's mental status. Pt update on day of discharge more alert today, actually a little agitated, blood pressure is elevated the patient denies any headache, no shortness of breath or chest pain. Hospital Course Mr. Gtz is a pleasant 67-year-old male with a history of COPD, hypertension, CAD and CVA who was brought to the hospital due to multiple episodes of syncope. ED workup indicated intraparenchymal hemorrhage, subarachnoid hemorrhage. Neurosurgery was consulted.-CT of the head showed multiple new findings when compared to prior examination include interval development of right frontal parenchymal hemorrhages, right-sided subarachnoid hemorrhage extending from low to high convexity, and focal subarachnoid hemorrhage in the left frontal polar region. Ventriculostomy and craniotomy stable in appearance. There is a new focal collection of gas adjacent in the right mid convexity parietal skull. Serial CT scan remains stable. Patient was continued on Keppra. Patient had an EEG on 08/03/17 which showed some mild slowing possibly left more than right but no epileptiform features. Neurosurgery cleared the patient for discharge to follow-up with Dr. Trejo as outpatient. Because of patient's lethargy, patient's Aricept and Seroquel were discontinued. He will continue on Keppra. Because of his multiple syncopal episodes, workup was done, no arrhythmias on telemetry. Carotid ultrasound was unremarkable. Patient had orthostatic blood pressures but improved. Echocardiogram shows normal left ventricular size with decreased systolic function severely reduced with an EF of 30-35%. Cardiology saw the patient, upon review, likely around 60%, no further recommendations are than aspirin if okay with neurology. Likely noncardiac origin. Cleared by cardiology for discharge. Patient's hospital stay and initial diagnosis included acute renal failure which improved with volume resuscitation. Patient was also started on lisinopril for hypertension. He may benefit from intermittent Seroquel if with agitation. Once patient's mental status was better, patient was discharged to rehab. Pt Condition on Discharge: Good Discharge Disposition: Discharge to SNF Discharge Time: > 30 minutes Discharge Instructions DIET: Follow Instructions for: Heart Healthy Diet Speech Therapy-Diet Recommends: Mechanical Soft Activities you can perform: Regular-No Restrictions Follow up Referrals: SNF/[facility]/ - 2-3 Days New Medications: Lisinopril (Lisinopril) 20 Mg Tab 20 MG PO DAILY, #30 TAB 0 Refills Continued Medications: Atorvastatin (Atorvastatin) 20 Mg Tab 20 MG PO HS for health for 30 Days, #30 TAB Calcium/Vitamin D (Oyster Shell 250 mg + Vit D Tb) 250 Mg Calcium (625 Mg)-125 Unit Tablet 500 MG PO BID for health for 30 Days, #30 TAB Coenzyme Q10 (Ubidecarenone) (Coq-10) 30 Mg Cap PO DAILY Cyanocobalamin (Vitamin B-12) 1,000 Mcg Tab 6000 MCG PO DAILY for health for 30 Days, #180 TAB Gabapentin (Gabapentin) 800 Mg Tab 800 MG PO BID for health for 30 Days, #60 TAB 0 Refills Levetiracetam (Keppra) 500 Mg Tab 1000 MG PO Q12HR for SZ for 30 Days, #120 TAB Metformin (Glucophage) 500 Mg Tab 500 MG PO DAILY for health for 30 Days, #30 TAB Montelukast (Singulair) 10 Mg Tab 10 MG PO HS for health for 30 Days, #30 TAB 0 Refills Multivitamin with Folic Acid (Thera Tablet) 400 Mcg Tablet 1 TAB PO DAILY for health for 30 Days, #30 TAB Nifedipine ER 24 HR (Nifedipine ER 24 HR) 30 Mg Tab 30 MG PO DAILY for health for 30 Days, #30 TAB Pantoprazole (Pantoprazole) 40 Mg Tab 40 MG PO DAILY for health for 30 Days, #30 TAB Potassium Chloride ER (Potassium Chloride ER) 10 Meq Cap 10 MEQ PO DAILY for health for 30 Days, #30 CAP Discontinued Medications: Donepezil HCl (Aricept) 5 Mg Tablet 5 MG PO HS for health for 30 Days, #30 TAB Quetiapine (Seroquel) 25 Mg Tab 12.5 MG PO BID for health for 30 Days, #30 TAB Alicia Olivera MD August 17, 2017 15:08
[2017-08-17 15:45] VITALS: BP 138/87; PULSE 86; RESP 20; TEMP 97.5; O2SAT 95
[2017-08-17 21:23] VITALS: BP 162/76; PULSE 89; RESP 20; TEMP 98.2; O2SAT 96
[2017-08-17] MEDS: MONTELUKAST SODIUM 10 MG TAB PO SCH (21:33)
[2017-08-17] MEDS: ATORVASTATIN 20 MG TAB PO SCH (21:33)
[2017-08-18] VITALS (12 sets, daily range): BP systolic 126–187; BP diastolic 63–94; PULSE 72–103; RESP 16–22; TEMP 97.6–98.5; O2SAT 95–98
[2017-08-18] MEDS: MULTIVITAMIN TAB PO SCH (09:18)
[2017-08-18] MEDS: NIFEdipine 30 MG SUSTAINED RELEASE TAB PO SCH (09:18)
[2017-08-18] MEDS: LISINOPRIL 20 MG TAB PO SCH (09:18)
[2017-08-18] MEDS: levETIRAcetam 500 MG TAB PO SCH ×2 (09:18→21:31)
[2017-08-18] MEDS: CALCIUM/VITAMIN D 250 MG/125 U TAB PO SCH ×2 (09:18→21:31)
[2017-08-18] MEDS: SODIUM CHLORIDE 0.9% FLUSH 10 ML FLUSH IV FLUSH SCH ×2 (09:18→21:31)
[2017-08-18] MEDS: CYANOCOBALAMIN 1,000 MCG TAB PO SCH (11:03)
--- NOTE | 2017-08-18 16:04 | HHI.PR ---
Subjective Remarks While having a bowel movement today patient had an acute onset of loss of consciousness followed by neurological deficit. The family feels he is more confused. The patient has rightward gaze. He is neglecting his left side. Objective Vital Signs Date Time Temp Pulse Resp B/P (MAP) Pulse Ox O2 Delivery O2 Flow Rate FiO2 08/18/17 15:15 98.5 75 19 134/76 (95) 98 08/18/17 15:09 98.5 86 18 130/80 (97) 97 08/18/17 14:49 98.5 103 22 152/70 (97) 97 08/18/17 12:00 98.2 85 18 164/88 (113) 96 08/18/17 08:00 98.0 73 19 187/94 (125) 95 08/18/17 05:03 98.3 76 20 148/63 (91) 97 08/18/17 00:50 98.0 84 20 135/66 (89) 95 08/17/17 21:23 98.2 89 20 162/76 (104) 96 Result Diagram: 08/14/17 0540 08/17/17 0628 Objective Remarks GENERAL: NAD, A&Ox2 HEAD: Normocephalic. NECK: Supple, trachea midline. No lymphadenopathy. EYES: No scleral icterus. No injection or drainage. CARDIOVASCULAR: Regular rate and rhythm without murmurs, gallops, or rubs. RESPIRATORY: Breath sounds equal bilaterally. No accessory muscle use. GASTROINTESTINAL: Abdomen soft, non-tender, nondistended. MUSCULOSKELETAL: No cyanosis, or edema. SKIN: Warm and dry. NEURO: Left-sided hemiplegia. Right side gaze. Left-sided neglect. A/P Problem List: (1) Syncope and collapse ICD Code: R55 - Syncope and collapse Status: Resolved (2) Hypertension ICD Code: I10 - Essential (primary) hypertension Status: Chronic (3) Coronary artery disease ICD Code: I25.10 - Atherosclerotic heart disease of [place] coronary artery without angina pectoris Status: Chronic (4) COPD (chronic obstructive pulmonary disease) ICD Code: J44.9 - Chronic obstructive pulmonary disease, unspecified Status: Chronic (5) Intracranial hemorrhage ICD Code: I62.9 - Nontraumatic intracranial hemorrhage, unspecified Status: Acute (6) Subarachnoid hemorrhage ICD Code: I60.9 - Nontraumatic subarachnoid hemorrhage, unspecified Status: Acute Assessment and Plan 67-year-old male admitted due to intraparenchymal hemorrhage and subarachnoid hemorrhage Acute neuro deficit This is a change from his new baseline Stat CT of the brain Follow clinically for changes Intraparenchymal hemorrhage Subarachnoid hemorrhage Seizure disorder Encephalopathy Dementia Agitation Follow clinically Monitor for seizures Neurosurgery following Multiple syncopal episodes. May be related to brain damage No further workup needed Acute kidney injury Resolved follow renal function Hypertension Hyper lipidemia Continue nifedipine Continue statin COPD Continue montelukast Headache Resolved for now DVT prophylaxis SCDs Sudhir Juarez MD August 18, 2017 16:04
--- NOTE | 2017-08-18 16:07 | RADRPT ---
EXAM DATE: 08/18/2017 4:00 PM EDT AGE/SEX: 67 years / Male INDICATIONS: Altered mental status CLINICAL DATA: This is the patient's initial encounter. Patient reports that signs and symptoms have been present for 1 day and indicates a pain score of Nonresponsive. MEDICAL/SURGICAL HISTORY: Cerebrovascular disease. Cardiovascular disease. Chronic obstructive pu lmonary disease. Hypertension, diabetes Craniotomy. RADIATION DOSE: 56.35 CTDI (mGy) [place] [facility] [place]/14/[place]. . TECHNIQUE: CT of the head without contrast. Using automated exposure control and adjustment of the mA and/or kV according to patient size, radiation dose was kept as low as reasonably achievable to ob tain optimal diagnostic quality images. FINDINGS: Again seen is a right frontal ventriculostomy tube with tip in the third ventricle. Evolving subarach noid hemorrhage again noted, slightly less apparent than on August 14. Evolving hemorrhage in the right frontal region. Previous intraventricular hemorrhage has nearly completely resolved. Atrophy and whit e matter ischemic changes again noted. Bilateral subdural hygromas measure 6 to 7 mm in thickness and is slightly more prominent than on previous examination. There is a prior right-sided craniotomy. CONCLUSION: 1. Bilateral subdural hygromas measure 6 to 7 mm in thickness and are slightly more prominent than o n August 14. 2. Resolving subarachnoid hemorrhage and intraventricular hemorrhage and evolving right frontal hemo rrhage. 3. Extensive white matter ischemic changes. Ventriculostomy unchanged. Electronically signed by: Jose Porter MD 08/18/2017 4:06 PM EDT
[2017-08-18] MEDS: ACETAMINOPHEN 325 MG TAB PO PRN (16:15)
[2017-08-18] MEDS ORDERED: ACETAMINOPHEN 500 MG CPLT PO PRN (16:30)
[2017-08-18] MEDS: MONTELUKAST SODIUM 10 MG TAB PO SCH (21:30)
[2017-08-18] MEDS: ATORVASTATIN 20 MG TAB PO SCH (21:31)
[2017-08-19 04:51] VITALS: BP 138/80; PULSE 85; RESP 18; TEMP 97.8; O2SAT 97
[2017-08-19 08:00] VITALS: BP 136/84; PULSE 82; RESP 17; TEMP 97.5; O2SAT 98
[2017-08-19] MEDS: SODIUM CHLORIDE 0.9% FLUSH 10 ML FLUSH IV FLUSH SCH (09:00)
[2017-08-19] MEDS: CYANOCOBALAMIN 1,000 MCG TAB PO SCH (09:00)
[2017-08-19] MEDS: NIFEdipine 30 MG SUSTAINED RELEASE TAB PO SCH (09:16)
[2017-08-19] MEDS: CALCIUM/VITAMIN D 250 MG/125 U TAB PO SCH (09:16)
[2017-08-19] MEDS: MULTIVITAMIN TAB PO SCH (09:17)
[2017-08-19] MEDS: LISINOPRIL 20 MG TAB PO SCH (09:17)
[2017-08-19] MEDS: levETIRAcetam 500 MG TAB PO SCH (09:17)
--- NOTE | 2017-08-19 10:27 | HHI.PR ---
Subjective Remarks CT imaging of brain shows no acute changes to suggest a new bleed. Evolutions of preceding areas of bleed seen. Patients neurological status returned to baseline and is at baseline through today. Objective Vital Signs Date Time Temp Pulse Resp B/P (MAP) Pulse Ox O2 Delivery O2 Flow Rate FiO2 08/19/17 04:51 97.8 85 18 138/80 (99) 97 08/18/17 20:08 97.6 87 18 136/68 (90) 98 Automatic Cuff 08/18/17 18:30 98.1 82 16 138/66 (90) 98 08/18/17 17:30 98.1 75 16 153/78 (103) 98 08/18/17 16:30 98.0 72 18 162/86 (111) 98 08/18/17 15:30 98.5 77 18 126/84 (98) 98 08/18/17 15:15 98.5 75 19 134/76 (95) 98 08/18/17 15:09 98.5 86 18 130/80 (97) 97 08/18/17 14:49 98.5 103 22 152/70 (97) 97 08/18/17 12:00 98.2 85 18 164/88 (113) 96 I/O 08/18/17 08/18/17 08/18/17 08/19/17 08/19/17 08/19/17 07:00 15:00 23:00 07:00 15:00 23:00 Intake Total 0 ml Balance 0 ml Intake Oral 0 ml # Voids 4 Result Diagram: 08/17/17 0628 Objective Remarks GENERAL: NAD, A&Ox2 HEAD: Normocephalic. NECK: Supple, trachea midline. No lymphadenopathy. EYES: No scleral icterus. No injection or drainage. CARDIOVASCULAR: Regular rate and rhythm without murmurs, gallops, or rubs. RESPIRATORY: Breath sounds equal bilaterally. No accessory muscle use. GASTROINTESTINAL: Abdomen soft, non-tender, nondistended. MUSCULOSKELETAL: No cyanosis, or edema. SKIN: Warm and dry. NEURO: Left-sided hemiplegia. Right side gaze. Left-sided neglect. A/P Problem List: (1) Syncope and collapse ICD Code: R55 - Syncope and collapse Status: Resolved (2) Hypertension ICD Code: I10 - Essential (primary) hypertension Status: Chronic (3) Coronary artery disease ICD Code: I25.10 - Atherosclerotic heart disease of [place] coronary artery without angina pectoris Status: Chronic (4) COPD (chronic obstructive pulmonary disease) ICD Code: J44.9 - Chronic obstructive pulmonary disease, unspecified Status: Chronic (5) Intracranial hemorrhage ICD Code: I62.9 - Nontraumatic intracranial hemorrhage, unspecified Status: Acute (6) Subarachnoid hemorrhage ICD Code: I60.9 - Nontraumatic subarachnoid hemorrhage, unspecified Status: Acute Assessment and Plan 67-year-old male admitted due to intraparenchymal hemorrhage and subarachnoid hemorrhage Baseline neurological status. Repeat CT of brain shows no acute changes. Discharge resumed. Acute neuro deficit This is a change from his new baseline Stat CT of the brain Follow clinically for changes Intraparenchymal hemorrhage Subarachnoid hemorrhage Seizure disorder Encephalopathy Dementia Agitation Follow clinically Monitor for seizures Neurosurgery following Multiple syncopal episodes. May be related to brain damage No further workup needed Acute kidney injury Resolved follow renal function Hypertension Hyper lipidemia Continue nifedipine Continue statin COPD Continue montelukast Headache Resolved for now DVT prophylaxis SCDs Sudhir Juarez MD August 19, 2017 10:26
[2017-08-19 12:00] VITALS: BP 138/88; PULSE 69; RESP 19; TEMP 97.5; O2SAT 96
== END 2017-08-19 16:22 | DRG 82 ==
LOC: NEPE 16:48 → NEDA 19:41 → OBSVTOIN 20:36 → N05A 22:43
PROVIDERS: ADMIT Hospitalist; ATTEND Hospitalist
DX: S06.6X9A Traumatic subarachnoid hemorrhage with loss of consciousness of unspecified duration, initial encounter (principal); G92 Toxic encephalopathy; N17.9 Acute kidney failure, unspecified; G93.89 Other specified disorders of brain; I50.9 Heart failure, unspecified; I11.0 Hypertensive heart disease with heart failure; H53.462 Homonymous bilateral field defects, left side; E11.42 Type 2 diabetes mellitus with diabetic polyneuropathy; Z68.41 Body mass index [BMI] 40.0-44.9, adult; F01.50 Vascular dementia, unspecified severity, without behavioral disturbance, psychotic disturbance, mood disturbance, and anxiety; J44.9 Chronic obstructive pulmonary disease, unspecified; M19.90 Unspecified osteoarthritis, unspecified site; I25.10 Atherosclerotic heart disease of native coronary artery without angina pectoris; I25.2 Old myocardial infarction; E78.5 Hyperlipidemia, unspecified; E78.00 Pure hypercholesterolemia, unspecified; G51.0 Bell's palsy; R55 Syncope and collapse; G40.909 Epilepsy, unspecified, not intractable, without status epilepticus; E66.9 Obesity, unspecified; R00.0 Tachycardia, unspecified; I08.1 Rheumatic disorders of both mitral and tricuspid valves; H91.90 Unspecified hearing loss, unspecified ear; T42.4X5A Adverse effect of benzodiazepines, initial encounter; F32.9 Major depressive disorder, single episode, unspecified; F41.9 Anxiety disorder, unspecified; Z66 Do not resuscitate; Z79.84 Long term (current) use of oral hypoglycemic drugs; Z87.891 Personal history of nicotine dependence; Z86.73 Personal history of transient ischemic attack (TIA), and cerebral infarction without residual deficits; Z88.1 Allergy status to other antibiotic agents; Z95.1 Presence of aortocoronary bypass graft; Z95.5 Presence of coronary angioplasty implant and graft; Z98.2 Presence of cerebrospinal fluid drainage device; Z98.84 Bariatric surgery status
CPT/HCPCS: 70450; 71045; 76937; 80048; 80053; 82550; 82552; 83735; 83880; 84100; 84484; 85025; 85027; 85610; 85730; 93005; 93306; 93880; 95819; J2060; J2270; J7030

== ENCOUNTER 2017-09-17 00:49 | Inpatient (IN) ==
[2017-09-21] MEDS ORDERED: Calcium/Vitamin D 250/125 MG Tablet ONE (08:35)
[2017-09-21] MEDS ORDERED: Gabapentin 400 MG Capsule ONE (08:38)
[2017-09-21] MEDS ORDERED: Lisinopril 20 MG Tablet ONE (08:39)
[2017-09-21] MEDS ORDERED: QUEtiapine 25 MG Tablet ONE (08:39)
[2017-09-21] MEDS ORDERED: levETIRAcetam 500 MG Tablet ONE (08:39)
[2017-09-21] MEDS ORDERED: Pantoprazole Sodium 20 MG DR Tablet PO ONE (08:39)
[2017-09-21] MEDS ORDERED: Aluminum/Magnesium/Simethacone Susp 30 ML UDC PO PRN (09:25)
[2017-09-21] MEDS ORDERED: Acetaminophen 325 MG Tablet PO PRN (09:30)
[2017-09-21] MEDS ORDERED: QUEtiapine 25 MG Tablet PO SCH (12:00)
--- NOTE | 2017-09-21 15:17 | P.PNPSY ---
Subjective Remarks: Patient seen in his room with nurse Gallito, chart reviewed, patient calm cooperative is somewhat confused and silly. Compliant medications. Does deny suicidality at this time for now continue treatment Review of Systems All other systems reviewed negative except as stated in HPI Mental Status Examination Appearance: Disheveled Consciousness: Alert Orientation: Person, Place Motor Activity: Other (Patient laying in bed) Speech: Hesitant Language: Adequate Fund of Knowledge: Inadequate Attention and Concentration: Easily distracted Memory: Impaired Mood: Other (Restricted) Affect: Other (Decreased range and intensity) Thought Process & Associations: Disorganized Thought Content: Appropriate Hallucination Type: None Delusion Type: None Suicidal Ideation: No Suicidal Plan: No Suicidal Intention: No Homicidal Ideation: No Homicidal Plan: No Homicidal Intention: No Insight: Poor Judgment: Poor Assessment and Plan - Plan Plan: Estimated LOS: [] days patient continues confused somewhat disorganized low compliant medication for now continue treatment Justification for Continued Inpatient Stay: At this time patient would decompensate a place to a lower level of care Discharge Planning: To be determined - Attending Attestation I have seeing patient and dictated the above
[2017-09-21] MEDS: Sod Chloride 0.9% Inj 1,000 ML IV.SIG SCH (17:27)
[2017-09-21] MEDS: levETIRAcetam 500 MG Tablet PO SCH (21:13)
[2017-09-21] MEDS: Gabapentin 400 MG Capsule PO SCH (21:14)
[2017-09-21] MEDS: LORazepam 0.5 MG Tablet PO PRN (21:15)
[2017-09-21] MEDS: Calcium/Vitamin D 250/125 MG Tablet PO SCH (21:15)
[2017-09-22] MEDS: Sod Chloride 0.9% Inj 1,000 ML IV.SIG SCH ×2 (02:49→15:09)
[2017-09-22] MEDS: Calcium/Vitamin D 250/125 MG Tablet PO SCH ×2 (09:58→21:14)
[2017-09-22] MEDS: Lisinopril 20 MG Tablet PO SCH (10:05)
[2017-09-22] MEDS: Potassium Chloride 10 MEQ ER Capsule PO SCH (10:05)
[2017-09-22] MEDS: Gabapentin 400 MG Capsule PO SCH ×2 (10:06→21:15)
[2017-09-22] MEDS: levETIRAcetam 500 MG Tablet PO SCH ×2 (10:06→21:13)
[2017-09-22] MEDS: QUEtiapine 25 MG Tablet PO SCH ×2 (15:10→18:28)
[2017-09-22] MEDS: LORazepam 0.5 MG Tablet PO PRN (21:15)
--- NOTE | 2017-09-22 21:39 | P.PNPSY ---
Subjective Remarks: Patient seen for follow up; chart reviewed. Discussion with nursing staff reported patient had bit through his IV tube, had poor sleep, was agitated last night but did not require ETO; compliant with medications. Patient was found lying in bed asleep but was able to wake up to participate in interview. Patient states that he had slept well last night, did not recall being agitated last evening. Patient continues with poor recall, alert and oriented to person only. He reports taking his medications well with no adverse drug reaction. He continues with confusion and requires 1:1 observation due to high fall risk and at times requiring redirection. Review of Systems All other systems reviewed negative except as stated in HPI Mental Status Examination Appearance: Disheveled Consciousness: Alert Orientation: Person, Place Motor Activity: Other (Patient laying in bed) Speech: Hesitant Language: Adequate Fund of Knowledge: Inadequate Attention and Concentration: Easily distracted Memory: Impaired Mood: Other (Restricted) Affect: Other (Decreased range and intensity) Thought Process & Associations: Disorganized Thought Content: Appropriate Hallucination Type: None Delusion Type: None Suicidal Ideation: No Suicidal Plan: No Suicidal Intention: No Homicidal Ideation: No Homicidal Plan: No Homicidal Intention: No Insight: Poor Judgment: Poor Assessment and Plan - Assessment (1) Dementia with behavioral disturbance Code(s): F03.91 - Unspecified dementia with behavioral disturbance Status: Acute - Plan Plan: Patient at this time continues with disorganized behavior and confusion secondary to neurocognitive deficits. Will increase quetiapine to 25mg BID as patient continues with intermittent episodes of agitation. Continue rest of medications, continue to monitor mood and behavior. Discharge planning in progress. Justification for Continued Inpatient Stay: At risk for further decompensation at lower level of care. Discharge Planning: To be determined (1) Dementia with behavioral disturbance Qualifiers: Dementia type: unspecified type Qualified Code(s): F03.91 - Unspecified dementia with behavioral disturbance
[2017-09-23] MEDS: Sod Chloride 0.9% Inj 1,000 ML IV.SIG SCH ×3 (05:11→21:30)
[2017-09-23] MEDS: Lisinopril 20 MG Tablet PO SCH (10:03)
[2017-09-23] MEDS: Potassium Chloride 10 MEQ ER Capsule PO SCH (10:33)
[2017-09-23] MEDS: levETIRAcetam 500 MG Tablet PO SCH ×2 (10:33→21:24)
[2017-09-23] MEDS: Gabapentin 400 MG Capsule PO SCH ×2 (10:33→21:25)
[2017-09-23] MEDS: Calcium/Vitamin D 250/125 MG Tablet PO SCH ×2 (11:02→21:25)
[2017-09-23] MEDS: QUEtiapine 25 MG Tablet PO SCH ×2 (13:44→18:31)
--- NOTE | 2017-09-23 20:28 | P.PNPSY ---
Subjective Remarks: Patient seen for follow up; chart reviewed. Discussion with nursing staff reported that the patinet slept with some disturbance last night but no aggressive behavior; compliant with medications. Patient was found lying on hospital bed, calm and cooperative. Patient continues with confusion, alert and oriented to person only today. He reports having slept well last night, mood being "good", tolerating medications well. He denies any perceptual delusions. Review of Systems All other systems reviewed negative except as stated in HPI Mental Status Examination Appearance: Disheveled Consciousness: Alert Orientation: Person, Place Motor Activity: Other (Patient laying in bed) Speech: Hesitant Language: Adequate Fund of Knowledge: Inadequate Attention and Concentration: Easily distracted Memory: Impaired Mood: Other (Restricted) Affect: Other (Decreased range and intensity) Thought Process & Associations: Disorganized, Other (concrete) Thought Content: Appropriate Hallucination Type: None Delusion Type: None Suicidal Ideation: No Suicidal Plan: No Suicidal Intention: No Homicidal Ideation: No Homicidal Plan: No Homicidal Intention: No Insight: Poor Judgment: Poor Assessment and Plan - Assessment (1) Dementia with behavioral disturbance Code(s): F03.91 - Unspecified dementia with behavioral disturbance Status: Acute - Plan Plan: Patient with no recent behavioral disturbances, tolerating medications well, continues with 1:1 for safety. Continue to monitor mood and behavior. Discharge planning in progress. Justification for Continued Inpatient Stay: At risk for further decompensation at lower level of care. (1) Dementia with behavioral disturbance Qualifiers: Dementia type: unspecified type Qualified Code(s): F03.91 - Unspecified dementia with behavioral disturbance
[2017-09-23] MEDS: LORazepam 0.5 MG Tablet PO PRN (21:25)
[2017-09-24] MEDS: levETIRAcetam 500 MG Tablet PO SCH ×2 (09:31→20:54)
[2017-09-24] MEDS: Gabapentin 400 MG Capsule PO SCH ×2 (09:31→20:54)
[2017-09-24] MEDS: Calcium/Vitamin D 250/125 MG Tablet PO SCH ×2 (09:31→20:55)
[2017-09-24] MEDS: Potassium Chloride 10 MEQ ER Capsule PO SCH (09:31)
[2017-09-24] MEDS: Lisinopril 20 MG Tablet PO SCH (09:32)
--- NOTE | 2017-09-24 14:52 | P.PNPSY ---
Subjective Remarks: Patient seen for follow-up, chart reviewed. Discussion nursing staff reported the patient with no behavioral disturbances, no outbursts, sleeping better less evening, continues to have about one meal per day. Patient was found lying hospital bed noted B, cooperative. Patient reports that he had been feeling "good" denying any physical symptoms or complaints at this time. Patient reports that he usually eats once per day has he been trying to lose weight but was encouraged to maintain adequate nutritional intake during his hospitalization which he agreed. Patient denies any perceptional services or delusions. Patient continues with confusion and disorientation secondary to neurocognitive deficits. Review of Systems All other systems reviewed negative except as stated in HPI Mental Status Examination Appearance: Disheveled Consciousness: Alert Orientation: Person, Place Motor Activity: Other (Patient laying in bed) Speech: Unremarkable Language: Adequate Fund of Knowledge: Inadequate Attention and Concentration: Easily distracted Memory: Impaired Mood: Other (Restricted) Affect: Other (Decreased range and intensity) Thought Process & Associations: Disorganized, Other (concrete) Thought Content: Appropriate Hallucination Type: None Delusion Type: None Suicidal Ideation: No Suicidal Plan: No Suicidal Intention: No Homicidal Ideation: No Homicidal Plan: No Homicidal Intention: No Insight: Poor Judgment: Poor Assessment and Plan - Assessment (1) Dementia with behavioral disturbance Code(s): F03.91 - Unspecified dementia with behavioral disturbance Status: Acute - Plan Plan: Patient at this time continues with confusion secondary to neurocognitive deficits. Patient with no behavioral disturbances tolerating medications well. Patient to continue one-to-one observation for fall risk and safety. Continue current treatment. Continue to monitor mood and behavior. Encourage patient to participate in groups and activities. Discharge planning a progress. Justification for Continued Inpatient Stay: At risk for further decompensation if at lower level of care (1) Dementia with behavioral disturbance Qualifiers: Dementia type: unspecified type Qualified Code(s): F03.91 - Unspecified dementia with behavioral disturbance
[2017-09-24] MEDS: QUEtiapine 25 MG Tablet PO SCH ×2 (16:20→17:56)
[2017-09-24] MEDS: Sod Chloride 0.9% Inj 1,000 ML IV.SIG SCH (17:55)
[2017-09-24] MEDS: LORazepam 0.5 MG Tablet PO PRN (20:56)
[2017-09-25] MEDS: Calcium/Vitamin D 250/125 MG Tablet PO SCH ×2 (08:33→21:30)
[2017-09-25] MEDS: Lisinopril 20 MG Tablet PO SCH (08:34)
[2017-09-25] MEDS: Potassium Chloride 10 MEQ ER Capsule PO SCH (08:34)
[2017-09-25] MEDS: Gabapentin 400 MG Capsule PO SCH ×2 (08:34→21:30)
[2017-09-25] MEDS: levETIRAcetam 500 MG Tablet PO SCH ×2 (08:34→21:30)
--- NOTE | 2017-09-25 16:26 | P.PNPSY ---
Subjective Remarks: Patient seen for follow-up, chart reviewed. Discussion with nursing staff reported that the patient with no behavioral disturbances, compliant with medications. Patient presented [facility], was retained under a continuance for further treatment and safe disposition plan. Patient reported no physical complaints, mood has been good, reports trying to eat more and be more active. He denies any perceptual disturbances or delusions; continues with baseline confusion. Review of Systems All other systems reviewed negative except as stated in HPI Mental Status Examination Appearance: Appropriate, Other ([facility]) Consciousness: Alert Orientation: Person, Place Motor Activity: Other (Patient laying in bed) Speech: Unremarkable Language: Adequate Fund of Knowledge: Inadequate Attention and Concentration: Easily distracted Memory: Impaired Mood: Other (Restricted) Affect: Other (Decreased range and intensity) Thought Process & Associations: Disorganized, Other (concrete) Thought Content: Appropriate Hallucination Type: None Delusion Type: None Suicidal Ideation: No Suicidal Plan: No Suicidal Intention: No Homicidal Ideation: No Homicidal Plan: No Homicidal Intention: No Insight: Poor Judgment: Poor Assessment and Plan - Assessment (1) Dementia with behavioral disturbance Code(s): F03.91 - Unspecified dementia with behavioral disturbance Status: Acute - Plan Plan: Patient this time continues with baseline confusion secondary to neurocognitive deficits, no aggressive behavior or episodes of irritability has been, cooperative and pleasant with staff. Patient noted to be out of bed more today and appears to be having improvement and nutritional intake. We will continue current treatment. Will continue monitor mood and behavior. Discharge planning in progress. Justification for Continued Inpatient Stay: At risk of further decompensation a lower level care. Discharge Planning: To be determined. (1) Dementia with behavioral disturbance Qualifiers: Dementia type: unspecified type Qualified Code(s): F03.91 - Unspecified dementia with behavioral disturbance
[2017-09-25] MEDS: LORazepam 0.5 MG Tablet PO PRN (18:16)
[2017-09-25] MEDS: QUEtiapine 25 MG Tablet PO SCH (18:16)
[2017-09-26] MEDS: Gabapentin 400 MG Capsule PO SCH ×2 (08:08→22:22)
[2017-09-26] MEDS: Calcium/Vitamin D 250/125 MG Tablet PO SCH ×2 (08:08→22:22)
[2017-09-26] MEDS: Potassium Chloride 10 MEQ ER Capsule PO SCH (08:09)
[2017-09-26] MEDS: Lisinopril 20 MG Tablet PO SCH (08:09)
[2017-09-26] MEDS: levETIRAcetam 500 MG Tablet PO SCH ×2 (08:09→22:22)
[2017-09-26] MEDS: QUEtiapine 25 MG Tablet PO SCH (14:56)
--- NOTE | 2017-09-26 15:59 | P.PNPSY ---
Subjective Remarks: Patient seen for follow-up, chart reviewed. Discussion with nursing staff reported that the patient had becomes irritable last night as well as this morning but no aggressive behavior or agitation. Patient was found sitting hospital chair noted to be somewhat irritable with interview but was able to answer appropriately. Patient continues with baseline confusion and states that he was feeling "terrible" but was not able to express Y. Patient reports having slept well last night, denies any physical complaints at this time denying any perceptional disturbances or delusions or SI or HI. Review of Systems All other systems reviewed negative except as stated in HPI Mental Status Examination Appearance: Appropriate, Other ([facility]) Consciousness: Alert Orientation: Person, Place Motor Activity: Other (Patient laying in bed) Speech: Unremarkable Language: Adequate Fund of Knowledge: Inadequate Attention and Concentration: Easily distracted Memory: Impaired Mood: Other (Restricted) Affect: Other (Decreased range and intensity) Thought Process & Associations: Disorganized, Other (concrete) Thought Content: Appropriate Hallucination Type: None Delusion Type: None Suicidal Ideation: No Suicidal Plan: No Suicidal Intention: No Homicidal Ideation: No Homicidal Plan: No Homicidal Intention: No Insight: Poor Judgment: Poor Assessment and Plan - Assessment (1) Dementia with behavioral disturbance Code(s): F03.91 - Unspecified dementia with behavioral disturbance Status: Acute - Plan Plan: Patient this time noted with some irritability less evening as well as this morning was unable to explain why he had been feeling this way but did not have any aggressive behavior or agitation. Patient was continued baseline confusion secondary to neurocognitive deficits. We will continue current treatment. We will continue to monitor mood and behavior. Patient to continue one-to-one observation for fall risk. Discharge planning a progress. Justification for Continued Inpatient Stay: At risk for further decompensation if at lower level of care (1) Dementia with behavioral disturbance Qualifiers: Dementia type: unspecified type Qualified Code(s): F03.91 - Unspecified dementia with behavioral disturbance
[2017-09-27] MEDS: Potassium Chloride 10 MEQ ER Capsule PO SCH (10:34)
[2017-09-27] MEDS: Gabapentin 400 MG Capsule PO SCH ×2 (10:35→22:09)
[2017-09-27] MEDS: levETIRAcetam 500 MG Tablet PO SCH ×2 (10:35→22:08)
[2017-09-27] MEDS: Calcium/Vitamin D 250/125 MG Tablet PO SCH (10:36)
[2017-09-27] MEDS: Lisinopril 20 MG Tablet PO SCH (10:37)
--- NOTE | 2017-09-27 13:09 | P.PNPSY ---
Subjective Remarks: Reviewed electronic medical records and discussed case with staff. Follow-up was conducted in room with nurse and sitter present. Patient found lying on his side in the bed. He reports that he has been sleeping "pretty good" and that his appetite has "not been great". He states that he doesn't care for the food. When asked where he is he responds, "the psychiatrist" but is unable to name the type of building we are in. His nurse advises that per shift supervisor melting, patient was "intensely preoccupied with snakes in the corner of his room last night". Mental Status Examination Appearance: Appropriate, Other ([facility]) Consciousness: Alert Orientation: Person, Place Motor Activity: Other (Patient laying in bed) Speech: Unremarkable Language: Adequate Fund of Knowledge: Inadequate Attention and Concentration: Easily distracted Memory: Impaired Mood: Other (Restricted) Affect: Other (Decreased range and intensity) Thought Process & Associations: Disorganized, Other (concrete) Thought Content: Appropriate Hallucination Type: None Delusion Type: None Suicidal Ideation: No Suicidal Plan: No Suicidal Intention: No Homicidal Ideation: No Homicidal Plan: No Homicidal Intention: No Insight: Poor Judgment: Poor Assessment and Plan - Plan Plan: Patient this time noted with some irritability less evening as well as this morning was unable to explain why he had been feeling this way but did not have any aggressive behavior or agitation. Patient was continued baseline confusion secondary to neurocognitive deficits. We will continue current treatment. We will continue to monitor mood and behavior. Patient to continue one-to-one observation for fall risk. Discharge planning a progress. I concur with this plan. Justification for Continued Inpatient Stay: Moving this patient to a less restrictive environment would likely result in decompensation.
[2017-09-27] MEDS: QUEtiapine 25 MG Tablet PO SCH ×2 (14:10→18:00)
[2017-09-28] MEDS: Calcium/Vitamin D 250/125 MG Tablet PO SCH ×3 (01:09→21:43)
[2017-09-28] MEDS: levETIRAcetam 500 MG Tablet PO SCH ×3 (01:11→21:42)
[2017-09-28] MEDS: Gabapentin 400 MG Capsule PO SCH ×3 (01:12→21:43)
--- NOTE | 2017-09-28 10:24 | P.PNPSY ---
Subjective Remarks: Patient seen for follow-up, chart reviewed. Discussion nursing staff reported the patient compliant with medications, refusing using medications last night, patient felt that he was being attacked by snakes but no episodes of agitation or behavioral dyscontrol. Patient was found lying hospital bed noted to be fairly good spirits this morning. Patient state he has been feeling good, denying any physical complaints at this time. Patient continues to be confused at baseline, patient was able to sit up and have breakfast. States that he is eating better. Patient denies any perceptual disturbances this morning, denies any suicidal homicidal ideations. Review of Systems All other systems reviewed negative except as stated in HPI Mental Status Examination Appearance: Appropriate, Other ([facility]) Consciousness: Alert Orientation: Person, Place Motor Activity: Other (Patient laying in bed) Speech: Unremarkable Language: Adequate Fund of Knowledge: Inadequate Attention and Concentration: Easily distracted Memory: Impaired Mood: Good Affect: Other (Decreased range and intensity) Thought Process & Associations: Disorganized, Other (concrete) Thought Content: Appropriate Hallucination Type: None Delusion Type: None Suicidal Ideation: No Suicidal Plan: No Suicidal Intention: No Homicidal Ideation: No Homicidal Plan: No Homicidal Intention: No Insight: Poor Judgment: Poor Assessment and Plan - Assessment (1) Dementia with behavioral disturbance Code(s): F03.91 - Unspecified dementia with behavioral disturbance Status: Acute - Plan Plan: Patient this time continues with baseline confusion from neurocognitive deficits. No aggressive or behavioral dyscontrol. We will continue current treatment. We will continue to monitor mood and behavior. We will order a dietitian consult to assess for recommendations to increase nutritional intake. Discharge planning a progress. Justification for Continued Inpatient Stay: At risk for further decompensation if at lower level of care (1) Dementia with behavioral disturbance Qualifiers: Dementia type: unspecified type Qualified Code(s): F03.91 - Unspecified dementia with behavioral disturbance
[2017-09-28] MEDS: Lisinopril 20 MG Tablet PO SCH (12:12)
[2017-09-28] MEDS: Potassium Chloride 10 MEQ ER Capsule PO SCH (12:12)
[2017-09-28] MEDS: QUEtiapine 25 MG Tablet PO SCH (12:13)
[2017-09-28] MEDS ORDERED: Haloperidol Inj 5 MG/ML Ampul ONE (19:56)
[2017-09-28] MEDS ORDERED: Haloperidol Inj 5 MG/ML Ampul IM STA (20:00)
[2017-09-29] MEDS: Potassium Chloride 10 MEQ ER Capsule PO SCH (09:46)
[2017-09-29] MEDS: Gabapentin 400 MG Capsule PO SCH (09:47)
[2017-09-29] MEDS: Calcium/Vitamin D 250/125 MG Tablet PO SCH ×2 (09:48→20:57)
[2017-09-29] MEDS: levETIRAcetam 500 MG Tablet PO SCH ×2 (09:48→20:57)
[2017-09-29] MEDS: Lisinopril 20 MG Tablet PO SCH (09:49)
--- NOTE | 2017-09-29 17:08 | P.PNPSY ---
Subjective Remarks: Patient seen for follow-up, chart reviewed. Discussion with nursing staff reported that the patient had been irritable and agitated last night requiring ETO which she responded well to. Patient this morning also noted to be somewhat irritable and uncooperative but was able to be redirected. Patient also refused lunch. Patient was found to be calm and cooperative with interview , patient denied any physical complaints, having poor memory of recent agitation less evening, continues to have confusion secondary to neurocognitive deficits. Patient denies any physical complaints at this time reports his mood has been good, denying any perceptual disturbances or delusions. Patient was encouraged to maintain adequate nutritional intake which she agreed. Review of Systems All other systems reviewed negative except as stated in HPI Mental Status Examination Appearance: Appropriate, Other ([facility]) Consciousness: Alert Orientation: Person, Place Motor Activity: Other (Patient laying in bed) Speech: Unremarkable Language: Adequate Fund of Knowledge: Inadequate Attention and Concentration: Easily distracted Memory: Impaired Mood: Good Affect: Other (Decreased range and intensity) Thought Process & Associations: Disorganized, Other (concrete) Thought Content: Appropriate Hallucination Type: None Delusion Type: None Suicidal Ideation: No Suicidal Plan: No Suicidal Intention: No Homicidal Ideation: No Homicidal Plan: No Homicidal Intention: No Insight: Poor Judgment: Poor Assessment and Plan - Assessment (1) Dementia with behavioral disturbance Code(s): F03.91 - Unspecified dementia with behavioral disturbance Status: Acute - Plan Plan: Patient continues with episodic moments of agitation which he requires redirection but episodes are not frequent. Patient episode of agitation last evening also in part due to patient not having received his medications earlier that day. Continue to monitor adherence to treatment. Continue current medication regimen. Monitor mood and behavior. Discharge planning a progress. Justification for Continued Inpatient Stay: At risk for further decompensation if at lower level of care Discharge Planning: To be determined (1) Dementia with behavioral disturbance Qualifiers: Dementia type: unspecified type Qualified Code(s): F03.91 - Unspecified dementia with behavioral disturbance
--- NOTE | 2017-09-29 18:26 | P.DIET ---
Nutritional Evaluation Type of nutrition evaluation: initial Nutrition consult regarding: Diet Evaluation Nutrition screening: Poor PO Intake, MDC Subjective Barriers to Nutrition: Refuses to eat at times Subjective Comments: Pt Medical History reviewed from previous visit here, 08/12/17, where pt requested a Mech Soft diet per ST. Pt has sitter at bedside. Per Nursing staff pt feeds himself and refused both breakfast and lunch today and had 100% po intake for dinner. Objective - Diagnosis Dementia w/Psychosis - Indications of Malnutrition Characteristics: Insufficient energy intake - Objective % IBW: 92 Body Weight Used for Calculations: Actual Energy Needs - Lower Range (kCal/kg): 25 Energy Needs - Upper Range (kCal/kg): 30 Lower Limit kCal/kg (kCals): 1,738 Upper Limit kCal/kg (kCals): 2,085 Lower Limit Protein Factor (Grams per Kg): 1.5 Upper Limit Protein Factor (Grams per Kg): 1.8 Lower Protein Needs (Protein): 104 Upper Protein Needs (Protein): 125 Fluid Factor (ml/kg): 30 Estimated Fluid Needs (ml): 2,085 Dietitian Reviewed in Medical Record: Current diet, Curent medications, Intake & Output, Labs, Medical history Diet Order: [id number] Mech Soft Objective Comments: PMH Includes: Dementia, CAD s/p CABG x 3, CVA, HTN, COPD, gastric bypass surgery , Crohns disease, h/o alcohol use A1C 6.2 Meds Include: Metformin, Seroquel, Theragran, Lipitor, Oscal, Keppra, Protonix Assessment Assessment: Pt is at nutritional risk r/t poor po intake. Pt's po intake is 50% or less for most meals here. Discussed w/ABIMAEL Cano to downgrade diet texture to Mech Soft to assist w/pt's diet tolerance and acceptance. Pt w/history of gastric bypass and requires increased dietary protein. Send Glucerna Shakes w/meals(= 220 kcal and 10g Protein per serving). Dietitian will follow. Recommendations: 1.Downgrade diet texture to Mech Soft to assist w/pt's diet tolerance and acceptance 2.Pt w/history of gastric bypass and requires increased dietary protein 3.Send Glucerna Shakes w/meals 4.Dietitian will follow Dietitian to Monitor: Lab values, Electrolytes, Glucose level, Supplement acceptance, Intake & Output, Diet tolerance, Weight change, PO Intake
[2017-09-29] MEDS: QUEtiapine 25 MG Tablet PO SCH ×2 (19:22→19:23)
[2017-09-30] MEDS: Gabapentin 400 MG Capsule PO SCH ×3 (00:29→21:55)
[2017-09-30 09:09] LABS: Baso # (Auto) 0.1 th/mm3 (0.0-0.2); Baso % (Auto) 1.3 % (0.0-2.0); Eos # (Auto) 0.3 th/mm3 (0.0-0.4); Eos % (Auto) 5.8 % (0.0-4.0); Hematocrit 40.9 % (39.0-51.0); Hemoglobin 14.1 gm/dL (13.0-17.0); Lymph # (Auto) 1.3 th/mm3 (1.0-4.8); Lymph % (Auto) 24.6 % (9.0-44.0); Mean Corpuscular HGB Conc 34.4 % (32.0-36.0); Mean Corpuscular Hemoglobin 26.2 pg (27.0-34.0); Mean Platelet Volume 9.4 fL (7.0-11.0); Mono # (Auto) 0.8 th/mm3 (0.0-0.9); Mono % (Auto) 15.6 % (0.0-8.0); Neut # (Auto) 2.8 th/mm3 (1.8-7.7); Neut % (Auto) 52.7 % (16.0-70.0); Platelet Count 188 th/mm3 (150-450); Red Blood Count 5.38 mil/mm3 (4.50-5.90); Red Cell Distribution Width 15.3 % (11.6-17.2); White Blood Count 5.3 th/mm3 (4.0-11.0)
[2017-09-30 09:25] LABS: Alanine Aminotransferase 20 U/L (12-78); Albumin 3.1 g/dL (3.4-5.0); Anion Gap 11 meq/L (5-15); Aspartate Aminotransferase 14 U/L (15-37); Blood Urea Nitrogen 16 mg/dL (7-18); Calcium 9.1 mg/dL (8.5-10.1); Carbon Dioxide 24.2 meq/L (21.0-32.0); Chloride 108 meq/L (98-107); Glomerular Filtration Rate 61 mL/min (>89); Glucose,Random 89 mg/dL (74-106); Potassium 3.8 meq/L (3.5-5.1); Sodium 143 meq/L (136-145)
[2017-09-30 09:28] LABS: Alkaline Phosphatase 85 U/L (45-117)
--- NOTE | 2017-09-30 09:37 | P.CON ---
History of Present Illness Service: 09/30/17 Consult date: 09/30/17 Requesting Physician: Manny De Jesus Reason for Consult: Poor p.o. intake, low urine output Primary Care Provider: Daniel Vazquez MD History of Present Illness: 67-year-old male with a past medical history significant for HTN, HLD , CVA, CAD status post CABG, CT, HEAD WAITER/WAITRESS BANQUET shunt placement, diabetes, neuropathy, dementia, and depression now admitted to medical psych unit. Of note patient was recently hospitalized in July due to right-sided subarachnoid hemorrhage, intraparenchymal hemorrhage with evaluation for syncopal episodes. During his hospitalization he was seen and evaluated by neurosurgery, HEAD WAITER/WAITRESS BANQUET shunt was stable with new focal collection of gas adjacent in the right mid convexity parietal skull. Patient had serial CT scans which remained stable recommendations to continue p.o. Keppra. Patient was also seen and evaluated by cardiology services who believed syncopal episodes was likely noncardiac in origin. Echo with EF 30-35%, carotid ultrasounds negative, no telemetry arrhythmias noted during his hospitalization. Patient was started on lisinopril for hypertension and his Seroquel and Aricept were discontinued secondary to patient's lethargic status. Patient was subsequently discharged to assisted facility. Patient returned on 09/18 to [place] for psychiatric evaluation under Arellano act after he became aggressive behavior at intermediate. [facility] consulted due to poor p.o intake and low urine output. Patient is seen and examined in bed and appears to be in no acute distress. He is noted to have a non-productive cough, when asked further he reports cough present since last week, productive for white/clear sputum. Denies SOB, fevers, chills, N/V/D, dysuria, or hematuria. Patient denies any chest pain, dizziness or lightheadedness. Staff only report 2 voids documented yesterday. Patient continues with very poor p.o intake, did not eat breakfast this morning. Review of Systems All other systems reviewed negative except as stated in HPI PMFSH - History History Provided By: Medical Record - Medical History Medical History: Medical History (Last Updated 09/30/17 @ 16:38 by Abdullahi Daniels) Asthma Triana esophagus CAD (coronary artery disease) CKD (chronic kidney disease) stage 3, GFR 30-59 ml/min COPD (chronic obstructive pulmonary disease) CVA (cerebral vascular accident) Dementia Diabetes mellitus HLD (hyperlipidemia) HTN (hypertension) - Surgical History Surgical History: Surgical History (Last Updated 09/30/17 @ 16:37 by Abdullahi Daniels) H/O gastric bypass Hx of CABG S/P HEAD WAITER/WAITRESS BANQUET shunt - Tobacco History Second Hand Smoke Exposure: No Tobacco Use In Past 30 Days: No - Alcohol History How Often Do You Have a Drink Containing Alcohol: Monthly or less - Substance Use History Substance History: No History of Abuse - Travel History History of Recent Travel: No Recent Travel in the [place] Within the Last 8 Weeks: No Recent Travel Out of the Country Within the Last 8 Weeks: No Medications and Allergies Active Medications: Active Medications Acetaminophen (Tylenol) 650 mg PO Q4H PRN PRN Reason: PAIN 1- 5 / TEMP > 101 Last Admin: 09/22/17 21:14 Dose: 650 mg Al Hydrox/Mg Hydrox/Simethicone (Mag-Al Plus Susp Liq) 30 ml PO Q6H PRN PRN Reason: DYSPEPSIA Al Hydroxide/Mg Hydroxide (Milk Of Magnesia Liq) 30 ml PO Q24H PRN PRN Reason: CONSTIPATION Albuterol (Duoneb Neb (Prn)) 1 ampul NEB Q4HR NEB PRN PRN Reason: SHORTNESS OF BREATH/WHEEZING Atorvastatin Calcium (Lipitor) 20 mg PO HS [facility] Last Admin: 09/29/17 20:57 Dose: Not Given Calcium/Vitamin D (Oscal With D 250/125 Mg) 2 tab PO BID [facility] Last Admin: 09/29/17 20:57 Dose: Not Given Cyanocobalamin (Vitamin B12) 6,000 mcg PO DAILY [facility] Last Admin: 09/29/17 09:49 Dose: Not Given Diphenhydramine HCl (Benadryl) 50 mg PO HS PRN PRN Reason: INSOMNIA Last Admin: 09/23/17 21:25 Dose: 50 mg Gabapentin (Neurontin) 800 mg PO BID [facility] Last Admin: 09/30/17 00:29 Dose: Not Given Sodium Chloride (Ns Inj) 1,000 mls @ 42 mls/hr IV.CONT .[id number] [facility] Sodium Chloride (Ns Inj) 1,000 mls @ 70 mls/hr IV.SIG .[id number] [facility] Last Admin: 09/24/17 17:55 Dose: Not Given Levetiracetam (Keppra) 1,000 mg PO BID [facility] Last Admin: 09/29/17 20:57 Dose: Not Given Lisinopril (Prinivil) 20 mg PO DAILY [facility] Last Admin: 09/29/17 09:49 Dose: 20 mg Lorazepam (Ativan) 0.5 mg PO Q6H PRN PRN Reason: MOD- SEVERE ANXIETY/AGITATION Last Admin: 09/25/17 18:16 Dose: 0.5 mg Metformin HCl (Glucophage) 500 mg PO DAILY [facility] Last Admin: 09/29/17 09:47 Dose: 500 mg Miscellaneous (Pill Splitter) 1 each OTHER UNSCH PRN PRN Reason: NEEDED Multivitamins (Theragran) 1 tab PO DAILY [facility] Last Admin: 09/29/17 09:47 Dose: 1 tab Nifedipine (Procardia Xl) 30 mg PO DAILY [facility] Last Admin: 09/29/17 09:48 Dose: 30 mg Pantoprazole Sodium (Protonix) 40 mg PO DAILY [facility] Last Admin: 09/29/17 09:48 Dose: 40 mg Potassium Chloride (Kcl) 10 meq PO DAILY [facility] Last Admin: 09/29/17 09:46 Dose: 10 meq Quetiapine Fumarate (Seroquel) 25 mg PO DAILY@1200 [facility] Last Admin: 09/29/17 19:23 Dose: 25 mg Quetiapine Fumarate (Seroquel) 25 mg PO DAILY@1800 [facility] Last Admin: 09/29/17 19:22 Dose: 25 mg Sodium Chloride (Ns Flush) 2 ml IV.FLUSH UNSCH PRN PRN Reason: FLUSH AFTER USING IV ACCESS Allergies Allergy/AdvReac Type Severity Reaction Status Date / Time cephalexin Allergy Severe EDEMA Verified 09/17/17 01:12 THROAT lovastatin Allergy Severe Verified 09/17/17 01:12 sertraline Allergy Severe "VERY Verified 09/17/17 01:12 SEVERE OFF BALANCE AND DIARRHEA" CLINORIL Allergy Unknown Uncoded 09/04/16 11:40 Home Medications Medication Instructions Recorded Confirmed Type atorvastatin 20 mg PO HS 09/20/17 09/20/17 History coenzyme Q10 30 mg PO DAILY 09/20/17 09/20/17 History cyanocobalamin (vitamin B-12) 6,000 mcg PO DAILY 09/20/17 09/20/17 History gabapentin 800 mg PO BID 09/20/17 09/20/17 History levetiracetam 1,000 mg PO Q12H 09/20/17 09/20/17 History lisinopril 20 mg PO DAILY 09/20/17 09/20/17 History metformin 500 mg PO DAILY 09/20/17 09/20/17 History multivit with min-folic acid 1 tab PO DAILY 09/20/17 09/20/17 History nifedipine 30 mg PO DAILY 09/20/17 09/20/17 History pantoprazole 40 mg PO DAILY 09/20/17 09/20/17 History potassium chloride 10 meq PO DAILY 09/20/17 09/20/17 History Physical Exam Vital signs: Vital Signs 09/29/17 18:02 09/29/17 19:00 09/30/17 00:28 Temperature 36.6 C 36.1 C L Pulse Rate 88 82 Respiratory Rate 16 16 16 Blood Pressure 130/77 144/76 H Pulse Oximetry 97 09/30/17 06:43 Temperature 36.6 C Pulse Rate 81 Respiratory Rate 16 Blood Pressure 105/70 Pulse Oximetry 96 Intake & Output 09/29/17 09/30/17 09/30/17 18:59 06:59 18:59 Intake Total 240 / 240 Output Total 2 / 2 Balance 240 / 240 -2 / -2 Intake: Oral 240 / 240 Output: Urine 2 / 2 Other: # Voids 0 Narrative: GENERAL: This is a well-nourished, well-developed male patient, in no apparent distress. Awake and alert. Calm and cooperative. SKIN: Warm and dry. HEAD: Normocephalic, with visible HEAD WAITER/WAITRESS BANQUET shunt EYES: Pupils equal, round and reactive. No injection or drainage. ENT: Nose without bleeding. Airway patent. CARDIOVASCULAR: Regular rate and rhythm without murmurs, gallops, or rubs. RESPIRATORY: Clear to auscultation. Breath sounds equal bilaterally. No wheezes , rales, or rhonchi. GASTROINTESTINAL: Abdomen soft, non-tender, nondistended. No guarding. + bowel sounds in all quadrants. MUSCULOSKELETAL: Extremities without clubbing, cyanosis, or edema. NEUROLOGICAL: Awake and alert. Oriented to self, and place. Cranial nerves II through XII grossly intact. Left sided weakness noted. Normal speech. Assessment and Plan - Plan 67-year-old male with a past medical history significant for HTN, HLD , CVA, CAD status post CABG, CT, HEAD WAITER/WAITRESS BANQUET shunt placement, diabetes, neuropathy, dementia, and depression now admitted to medical psych unit 09/18 to [place] for psychiatric evaluation under Arellano act after he became aggressive behavior at intermediate. [facility] consulted due to poor p.o intake and low urine output. Dementia -Treatment plan per psych, greatly appreciated - Currently on Seroquel Poor p.o. intake Low urine output - Likely related to dementia/psychiatric conditions - Dietary following recommendations for mechanical soft diet with increase protein with Glucerna shakes - Continue to encourage p.o. intake - CMP today stable - Start IV NS at 70ml/hr, monitor closely for fluid overload given cardiac history - Accurate I&O's, bladder scann Q6HR Hx CAD s/p CABG HTN HLD DM- A1C 6.2 -Continue Procardia 30 mg daily, lisinopril 20 mg daily, and Lipitor 20 mg nightly - BP and HR stable continue to monitor - Diabetic diet, accuchecks Q6hrs with hypoglycemic protocol given poor p.o intake Hx HEAD WAITER/WAITRESS BANQUET shunt Hx Intraparenchymal hemorrhage/Subarachnoid hemorrhage Seizure disorder - Monitor for neuro changes, seizure precautions, continue Keppra Cough Hx COPD/asthma, not exacerbated - No leukocytosis on CBC this a.m, afebrile, chest x-ray negative - O2 sats stable on room air, PRN neb treatments as needed, PRN Tessalon pearls for cough, monitor response. DVT prophylaxis-ambulation Discussed Condition With: Nursing staff and patient
[2017-09-30] MEDS: Potassium Chloride 10 MEQ ER Capsule PO SCH (10:12)
[2017-09-30] MEDS: levETIRAcetam 500 MG Tablet PO SCH ×2 (10:12→21:55)
[2017-09-30] MEDS: Lisinopril 20 MG Tablet PO SCH (10:12)
[2017-09-30] MEDS: Calcium/Vitamin D 250/125 MG Tablet PO SCH ×2 (10:12→21:52)
--- NOTE | 2017-09-30 10:53 | XR ---
EXAM DATE: 09/30/2017 10:23 AM EDT AGE/SEX: 67 years / Male INDICATIONS: Cough. CLINICAL DATA: This is the patient's initial encounter. Patient reports that signs and symptoms have been present for 1 day and indicates a pain score of 0/10. MEDICAL/SURGICAL HISTORY: None. None. COMPARISON: [facility] [place], CHEST SINGLE AP, 09/17/2017. . FINDINGS: A single AP view of the chest demonstrates lungs to be clear. Heart size is normal. There are no effu sions. Intact median sternotomy wires. Shunt tubing traverses the right chest. CONCLUSION: No acute cardiopulmonary process Electronically signed by: Peterson Doherty MD 09/30/2017 10:52 AM EDT
[2017-09-30] MEDS ORDERED: Benzonatate 100 MG Capsule PO PRN (11:31)
--- NOTE | 2017-09-30 15:27 | P.PNPSY ---
Subjective Remarks: Patient seen for follow-up, chart reviewed. Discussion nursing staff reported the patient with poor p.o. intake, no aggressive behavior and cooperative. Patient was found lying hospital bed asleep was noted to be in interview. Patient states that he is feeling "good" denying any physical complaints at this time, patient was encouraged to maintain adequate nutritional intake which he agreed he would get up to have lunch. Patient denies any mood symptoms reports feeling "good", denying perceptual disturbances or delusions, patient continues to have confusion secondary to neurocognitive deficits. Review of Systems All other systems reviewed negative except as stated in HPI Mental Status Examination Appearance: Appropriate, Other ([facility]) Consciousness: Alert Orientation: Person, Place Motor Activity: Other (Patient laying in bed) Speech: Unremarkable Language: Adequate Fund of Knowledge: Inadequate Attention and Concentration: Easily distracted Memory: Impaired Mood: Good Affect: Other (Decreased range and intensity) Thought Process & Associations: Disorganized, Other (concrete) Thought Content: Appropriate Hallucination Type: None Delusion Type: None Suicidal Ideation: No Suicidal Plan: No Suicidal Intention: No Homicidal Ideation: No Homicidal Plan: No Homicidal Intention: No Insight: Poor Judgment: Poor Assessment and Plan - Assessment (1) Dementia with behavioral disturbance Code(s): F03.91 - Unspecified dementia with behavioral disturbance Status: Acute - Plan Plan: Patient with no behavioral disturbances, has been cooperative with staff, continues with one-to-one observation for fall risk. Patient recent labs reviewed, hospitalist input appreciated. Dietitian input appreciated. Will follow recommendations per prior medical team as well as dietitian recommendations. Continue to monitor mood and behavior. Continue current treatment. Discharge planning in progress. Justification for Continued Inpatient Stay: At risk for further decompensation if at lower level of care (1) Dementia with behavioral disturbance Qualifiers: Dementia type: unspecified type Qualified Code(s): F03.91 - Unspecified dementia with behavioral disturbance
[2017-09-30] MEDS: Sod Chloride 0.9% Inj 1,000 ML IV.CONT SCH (16:55)
[2017-09-30] MEDS: QUEtiapine 25 MG Tablet PO SCH ×2 (16:55)
[2017-09-30] MEDS ORDERED: Dextrose 50% in Water 50 ML Vial IV.PUSH PRN (17:09)
--- NOTE | 2017-10-01 08:15 | P.PN ---
Subjective Interval history: Follow-up for poor p.o. intake and low urine output. Patient seen and examined sitting in bed, he is awake, alert and oriented to place, self and current president. He denies any fevers, chills, N/V/D. Reports urinating without dysuria or difficulty. Spoke with nurse who states patient will be continent and incontinent at times, recorded urine output is number of voids not ml's. No event overnight to acute concerns. Physical Exam Vital signs: Vital Signs 09/30/17 12:36 09/30/17 20:00 10/01/17 04:00 Temperature 36.7 C Pulse Rate 81 Respiratory Rate 16 16 16 Blood Pressure 91/64 L Intake & Output 09/30/17 10/01/17 10/01/17 18:59 06:59 18:59 Intake Total 100 / 100 Output Total Balance 100 / 100 -1 / -1 Weight 92 kg Intake: Oral 100 / 100 Output: Urine Other: # Voids 1 # Bowel Movements 1 Narrative: GENERAL: This is a well-nourished, well-developed male patient, in no apparent distress. Awake and alert. Calm and cooperative. SKIN: Warm and dry. HEAD: Normocephalic, with visible ARMATURE WINDER REPAIR shunt EYES: Pupils equal, round and reactive. No injection or drainage. ENT: Nose without bleeding. Airway patent. CARDIOVASCULAR: Regular rate and rhythm without murmurs, gallops, or rubs. RESPIRATORY: Clear to auscultation. Breath sounds equal bilaterally. No wheezes , rales, or rhonchi. GASTROINTESTINAL: Abdomen soft, non-tender, nondistended. No guarding. + bowel sounds in all quadrants. MUSCULOSKELETAL: Extremities without clubbing, cyanosis, or edema. NEUROLOGICAL: Awake and alert. Oriented to self, place and president. Cranial nerves II through XII grossly intact. Left sided weakness noted. Normal speech. Results - Labs CBC & Chem 7: 09/30/17 09:00 09/30/17 09:00 Laboratory Results - last 24 hr 09/30/17 09/30/17 09/30/17 09:00 09:00 18:18 WBC 5.3 RBC 5.38 Hgb 14.1 Hct 40.9 MCV 76.0 L MCH 26.2 L MCHC 34.4 RDW 15.3 Plt Count 188 MPV 9.4 Neut % (Auto) 52.7 Lymph % (Auto) 24.6 [place] % (Auto) 15.6 H Eos % (Auto) 5.8 H Baso % (Auto) 1.3 Neut # (Auto) 2.8 Lymph # (Auto) 1.3 [place] # (Auto) 0.8 Eos # (Auto) 0.3 Baso # (Auto) 0.1 WBC Differential . Differential Comment Auto diff final Sodium 143 Potassium 3.8 Chloride 108 H Carbon Dioxide 24.2 Anion Gap 11 BUN 16 Creatinine 1.19 Estimated GFR 61 L POC Glucose 110 Random Glucose 89 Calcium 9.1 Total Bilirubin 0.7 AST 14 L ALT 20 Alkaline Phosphatase 85 Total Protein 7.0 Albumin 3.1 L - Imaging Impressions Chest X-Ray 09/30/17 00:00 CONCLUSION: No acute cardiopulmonary process Assessment and Plan - Plan 67-year-old male with a past medical history significant for HTN, HLD , CVA, CAD status post CABG, [place], ARMATURE WINDER REPAIR shunt placement, diabetes, neuropathy, dementia, and depression now admitted to medical psych unit 09/18 to [place] for psychiatric evaluation under Arellano act after he became aggressive behavior at assisted. [facility] consulted due to poor p.o intake and low urine output. Dementia -Treatment plan per psych, greatly appreciated - Currently on Seroquel Poor p.o. intake Low urine output - Likely related to dementia/psychiatric conditions - Dietary following recommendations for mechanical soft diet with increase protein with Glucerna shakes - Continue to encourage p.o. intake - CMP today stable - Continue IV NS at 70ml/hr, monitor closely for fluid overload given cardiac history - Accurate I&O's, staff documenting number of voids due to incontinence. - Consult dietary for calorie count. Hx CAD s/p CABG HTN HLD DM- A1C 6.2 -Continue Procardia 30 mg daily, lisinopril 20 mg daily, and Lipitor 20 mg nightly - HR stable, hold lisinopril. - Diabetic diet, accuchecks Q6hrs with hypoglycemic protocol given poor p.o intake Hx ARMATURE WINDER REPAIR shunt Hx Intraparenchymal hemorrhage/Subarachnoid hemorrhage Seizure disorder - Monitor for neuro changes, seizure precautions, continue Keppra Cough Hx COPD/asthma, not exacerbated - No leukocytosis on CBC this a.m, afebrile, chest x-ray negative - O2 sats stable on room air, PRN neb treatments as needed, PRN Tessalon pearls for cough. DVT prophylaxis-ambulation Discussed Condition With: Patient and nursing staff.
[2017-10-01] MEDS: Potassium Chloride 10 MEQ ER Capsule PO SCH (08:54)
[2017-10-01] MEDS: Gabapentin 400 MG Capsule PO SCH ×2 (08:54→22:17)
[2017-10-01] MEDS: Calcium/Vitamin D 250/125 MG Tablet PO SCH ×2 (08:55→22:17)
[2017-10-01] MEDS: Lisinopril 20 MG Tablet PO SCH (08:55)
[2017-10-01] MEDS: levETIRAcetam 500 MG Tablet PO SCH ×2 (08:56→22:17)
[2017-10-01] MEDS: Sod Chloride 0.9% Inj 1,000 ML IV.CONT SCH (11:00)
--- NOTE | 2017-10-01 14:17 | P.DIET ---
Nutritional Evaluation Type of nutrition evaluation: follow-up Nutrition consult regarding: Diet Evaluation Nutrition screening: Poor PO Intake, [facility] Scre[place] comments: 10/01/17 [facility] Calorie Counting Subjective Barriers to Nutrition: Refuses to eat at times Subjective Comments: Rich Bob at bedside and reports pt po intake for breakfast and lunch today w /50% for each meal. Pt provided a few food preferences and did not make eye contact. Pt says he doesnt want to gain wt. Encouraged pt to have po intake for meals and fluids to stay nourished. Pt acknowledged by saying "yes", "I know". RN Les informed a Calorie Count has been started. Subjective brought forward from previous note: Pt Medical History reviewed from previous visit here, 08/12/17, where pt requested a Mech Soft diet per Objective - Diagnosis Dementia w/Psychosis - Indications of Malnutrition Characteristics: Insufficient energy intake - Objective % IBW: 92 Body Weight Used for Calculations: Actual Energy Needs - Lower Range (kCal/kg): 25 Energy Needs - Upper Range (kCal/kg): 30 Lower Limit kCal/kg (kCals): 1,738 Upper Limit kCal/kg (kCals): 2,085 Lower Limit Protein Factor (Grams per Kg): 1.5 Upper Limit Protein Factor (Grams per Kg): 1.8 Lower Protein Needs (Protein): 104 Upper Protein Needs (Protein): 125 Fluid Factor (ml/kg): 30 Estimated Fluid Needs (ml): 2,085 Dietitian Reviewed in Medical Record: Current diet, Curent medications, Intake & Output, Labs Diet Order: [id number] Mech Soft Objective Comments: PMH Includes: Dementia, CAD s/p CABG x 3, CVA, HTN, COPD, gastric bypass surgery , Crohns disease, h/o alcohol use A1C 6.2; Accucheck 89 Meds Include: Metformin, Seroquel, Theragran, B12, Lipitor, Oscal, Keppra, Protonix, Neurontin Feeding - Current PO Supplement Current Supplement: Glucerna Shake Current Supplement Flavor: Other Current Frequency of Supplement: Three times a day Current kCals Provided by Supplement: 220 Current Protein Provided by Supplement: 10 Assessment Assessment: Pt is at nutritional risk r/t poor po intake. MDC for Calorie Count started today 10/01 through 10/03 w/Nutrition Recs to follow 10/03. Pt tolerating Mech Soft diet w/improved po intake today. Pt w/history of gastric bypass and requires increased dietary protein. Continue Glucerna Shakes w/meals. Wt noted- question accuracy of recorded wt in EMR w/a 6.8kg wt increase over 7-days and a 15.7kg wt gain over the last 24-hours. Dietitian following. Recommendations: 1.[facility] for [place] Count 10/01 through 10/03 w/Nutrition Recs to follow 10/03 2. Mech Soft diet 3. Hx of gastric bypass and requires increased dietary protein 4.Continue Glucerna Shakes w/meals 5.Question accuracy of recorded wt in EMR w/a 6.8kg wt increase over 7-days and a 15.7kg wt gain over the last 24-hours 6.Dietitian following Dietitian to Monitor: Lab values, Glucose level, Supplement acceptance, Intake & Output, Diet tolerance, Weight change, PO Intake
[2017-10-01] MEDS: QUEtiapine 25 MG Tablet PO SCH ×2 (14:21→17:46)
--- NOTE | 2017-10-01 14:59 | P.PNPSY ---
Subjective Remarks: Patient seen for follow-up, chart reviewed. Discussion with nursing staff reported the patient has a compliant medications was called no behavioral disturbances, no agitation or irritability, eating more. Patient was found sitting in hospital bed noted be good spirits smiling. Patient states feeling "good", denies any physical complaints. He states that he is eating better, denying any perceptional services or delusions. Patient reports having adequate bowel movement and tolerating medications well. Patient continues with baseline confusion. Review of Systems All other systems reviewed negative except as stated in HPI Mental Status Examination Appearance: Appropriate, Other ([facility]) Consciousness: Alert Orientation: Person, Place Motor Activity: Other (Patient laying in bed) Speech: Unremarkable Language: Adequate Fund of Knowledge: Inadequate Attention and Concentration: Easily distracted Memory: Impaired Mood: Good Affect: Other (Decreased range and intensity) Thought Process & Associations: Disorganized, Other (concrete) Thought Content: Appropriate Hallucination Type: None Delusion Type: None Suicidal Ideation: No Suicidal Plan: No Suicidal Intention: No Homicidal Ideation: No Homicidal Plan: No Homicidal Intention: No Insight: Poor Judgment: Impulsive Assessment and Plan - Assessment (1) Dementia with behavioral disturbance Code(s): F03.91 - Unspecified dementia with behavioral disturbance Status: Acute - Plan Plan: Patient continues with baseline confusion secondary to neurocognitive deficits. Patient with no behavioral disturbances, calm and cooperative and pleasant with staff. Patient tolerated medications well has been compliant. Patient improving and his nutritional intake eating about 50% of each meal now. Dietitian input appreciated. Continue to monitor mood and behavior. Continue current treatment. Discharge planning in progress. Justification for Continued Inpatient Stay: At risk for further decompensation if at lower level of care (1) Dementia with behavioral disturbance Qualifiers: Dementia type: unspecified type Qualified Code(s): F03.91 - Unspecified dementia with behavioral disturbance
[2017-10-01] MEDS: LORazepam 0.5 MG Tablet PO PRN (17:09)
[2017-10-01] MEDS ORDERED: Haloperidol Inj 5 MG/ML Ampul ONE (21:27)
[2017-10-01] MEDS ORDERED: Haloperidol Inj 5 MG/ML Ampul IM STA (21:43)
[2017-10-02] MEDS: Sod Chloride 0.9% Inj 1,000 ML IV.CONT SCH ×2 (01:45→23:22)
--- NOTE | 2017-10-02 08:13 | P.PN ---
Subjective Interval history: Follow-up visit for poor p.o. intake and low urine output. Spoke with nurse reports patient has been eating some and drinking fluids, voiding in brief. Patient also became aggressive overnight and had to receive several ETO's. Patient is seen and examined resting comfortably in bed with sitter at bedside, will open his eyes and awaken when instructed, following commands but very sleepy this morning. Attempted with staff to sit patient up for him to have breakfast however lies back down and goes to sleep. 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 1000 / 1000 1000 / 1000 CONT .[id number] EUGENIA Rx#:[id number] Oral 960 / 960 240 / 240 Other: # Voids 2 Narrative: GENERAL: This is a well-nourished, well-developed male patient, in no apparent distress. Sleepy this morning. SKIN: Warm and dry. HEAD: Normocephalic, with visible FACTORY MAINTENANCE MANAGER shunt EYES: Pupils equal, round and reactive. No injection or drainage. ENT: Nose without bleeding. Airway patent. CARDIOVASCULAR: Regular rate and rhythm without murmurs, gallops, or rubs. RESPIRATORY: Clear to auscultation. Breath sounds equal bilaterally. No wheezes , rales, or rhonchi. GASTROINTESTINAL: Abdomen soft, non-tender, nondistended. No guarding. + bowel sounds in all quadrants. MUSCULOSKELETAL: Extremities without clubbing, cyanosis, or edema. NEUROLOGICAL: Sleepy, awakens and follows commands. Cranial nerves II through XII grossly intact. Left sided weakness noted. Normal speech. 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 [facility] consulted due to poor p.o intake and low urine output. Dementia -Treatment plan per psych, greatly appreciated - Currently on Seroquel -Aggressive behavior overnight, received ETO's, sleepy this morning. Poor p.o. intake Low urine output - Likely related to dementia/psychiatric conditions - Dietary following recommendations for mechanical soft diet with increase protein with Glucerna shakes - Continue to encourage p.o. intake - Accurate I&O's, staff documenting number of voids due to incontinence. - Consult dietary for calorie count, IV fluids off since patient has pulled out IVs, drinking some fluids and eating some. Hx CAD s/p CABG HTN HLD DM- A1C 6.2 -Continue Procardia 30 mg daily and Lipitor 20 mg nightly - HR stable, hold lisinopril, BP on the low side. - Diabetic diet, accuchecks Q6hrs with hypoglycemic protocol given poor p.o intake Hx FACTORY MAINTENANCE MANAGER shunt Hx Intraparenchymal hemorrhage/Subarachnoid hemorrhage Seizure disorder - Monitor for neuro changes, seizure precautions, continue Keppra Cough Hx COPD/asthma, not exacerbated - No leukocytosis on CBC this a.m, afebrile, chest x-ray negative - O2 sats stable on room air, PRN neb treatments as needed, PRN Tessalon pearls for cough. DVT prophylaxis-ambulation Discussed Condition With: Patient and nurse.
[2017-10-02] MEDS: Gabapentin 400 MG Capsule PO SCH ×2 (09:39→21:23)
[2017-10-02] MEDS: Potassium Chloride 10 MEQ ER Capsule PO SCH (09:40)
[2017-10-02] MEDS: Calcium/Vitamin D 250/125 MG Tablet PO SCH ×2 (09:40→21:23)
[2017-10-02] MEDS: levETIRAcetam 500 MG Tablet PO SCH ×2 (09:40→21:23)
[2017-10-02] MEDS: QUEtiapine 25 MG Tablet PO SCH ×2 (13:27→17:38)
--- NOTE | 2017-10-02 16:30 | P.PNPSY ---
Subjective Remarks: Patient seen for follow-up, chart reviewed. Discussion with nursing staff reported that the patient had become irritable last evening as he was not given evening medications and required ETO to manage symptoms. Patient was found to be calm and cooperative with interview, noted to be somnolent and with limited interaction with interview as he was too somnolent to have an extensive interview. He denies any physical complaints and was encouraged to continue adequate nutritional intake which he agreed. Patient continues to be on 1:1 observation due to previous fall and being at fall risk. Review of Systems All other systems reviewed negative except as stated in HPI Mental Status Examination Appearance: Appropriate, Other ([facility]) Consciousness: Somnolent Orientation: Person, Place Motor Activity: Other (Patient laying in bed) Speech: Unremarkable Language: Adequate Fund of Knowledge: Inadequate Attention and Concentration: Easily distracted Memory: Impaired Mood: Good Affect: Other (Decreased range and intensity) Thought Process & Associations: Disorganized, Other (concrete) Thought Content: Appropriate Hallucination Type: None Delusion Type: None Suicidal Ideation: No Suicidal Plan: No Suicidal Intention: No Homicidal Ideation: No Homicidal Plan: No Homicidal Intention: No Insight: Poor Judgment: Impulsive Assessment and Plan - Assessment (1) Dementia with behavioral disturbance Code(s): F03.91 - Unspecified dementia with behavioral disturbance Status: Acute - Plan Plan: Patient with poor insight and memory secondary to neurocognitive deficits. Patient denies physical complaints, patient had required ETO last evening but also patient was given his evening meds prior to this episode. Patient should continue to receive scheduled medications even if asleep as this will help prevent evening agitation. Continue current treatment. Continue to monitor with behavior. Patient to continue on one-to-one observation for fall risk. Discharge planning a progress. Justification for Continued Inpatient Stay: At risk of further decompensation a lower level care. (1) Dementia with behavioral disturbance Qualifiers: Dementia type: unspecified type Qualified Code(s): F03.91 - Unspecified dementia with behavioral disturbance
--- NOTE | 2017-10-03 08:39 | P.PNPSY ---
Subjective Remarks: Patient seen for follow, chart reviewed. Discussion nursing staff reported the patient had a good evening last night, compliant with medications no behavioral disturbances, cooperative with staff. Patient was found lying hospital bed asleep was able to wake up and engage in interview superficially. He states that he is feeling "alright" stating that he will get up to have breakfast today and was reminded to have good nutritional intake which he agreed. Patient denying any physical complaints at this time reports feeling "okay" denying any perceptual services or delusions. Patient continues with baseline confusion secondary to neurocognitive deficits. Patient continues one-to-one observation for fall risk. Review of Systems All other systems reviewed negative except as stated in HPI Mental Status Examination Appearance: Appropriate, Other ([facility]) Consciousness: Somnolent Orientation: Person, Place Motor Activity: Other (Patient laying in bed) Speech: Unremarkable Language: Adequate Fund of Knowledge: Inadequate Attention and Concentration: Easily distracted Memory: Impaired Mood: Good Affect: Other (Decreased range and intensity) Thought Process & Associations: Disorganized, Other (concrete) Thought Content: Appropriate Hallucination Type: None Delusion Type: None Suicidal Ideation: No Suicidal Plan: No Suicidal Intention: No Homicidal Ideation: No Homicidal Plan: No Homicidal Intention: No Insight: Poor Judgment: Impulsive Assessment and Plan - Assessment (1) Dementia with behavioral disturbance Code(s): F03.91 - Unspecified dementia with behavioral disturbance Status: Acute - Plan Plan: Patient this time continue with baseline confusion secondary to neurocognitive deficits. Patient with good behavioral control no episodes of irritability or agitation has been pleasant with staff. We will continue current treatment. We will continue to monitor mood and behavior. Discharge planning a progress. Justification for Continued Inpatient Stay: At risk of further decompensation a lower level of care. (1) Dementia with behavioral disturbance Qualifiers: Dementia type: unspecified type Qualified Code(s): F03.91 - Unspecified dementia with behavioral disturbance
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
[2017-10-03] MEDS: Calcium/Vitamin D 250/125 MG Tablet PO SCH ×2 (10:16→21:01)
[2017-10-03] MEDS: levETIRAcetam 500 MG Tablet PO SCH ×2 (10:16→21:01)
[2017-10-03] MEDS: Gabapentin 400 MG Capsule PO SCH ×2 (10:16→21:01)
[2017-10-03] MEDS: Potassium Chloride 10 MEQ ER Capsule PO SCH (10:18)
[2017-10-03] MEDS: Sod Chloride 0.9% Inj 1,000 ML IV.CONT SCH (10:19)
[2017-10-03] MEDS: QUEtiapine 25 MG Tablet PO SCH ×2 (12:49→21:01)
--- NOTE | 2017-10-03 15:37 | P.DIET ---
Nutritional Evaluation Type of nutrition evaluation: follow-up Nutrition consult regarding: Diet Evaluation Nutrition screening: [place] [facility] [place] [facility] [place] Subjective Barriers to Nutrition: Refuses to eat at times Subjective Comments: Pt's sitter stated that patient ate about half of his breakfast but none of his lunch. He did drink the Glucerna Objective - Diagnosis Dementia w/Psychosis - Indications of Malnutrition Characteristics: Insufficient energy intake - Objective % IBW: 92 Body Weight Used for Calculations: Actual Energy Needs - Lower Range (kCal/kg): 25 Energy Needs - Upper Range (kCal/kg): 30 Lower Limit kCal/kg (kCals): 1,738 Upper Limit kCal/kg (kCals): 2,085 Lower Limit Protein Factor (Grams per Kg): 1.5 Upper Limit Protein Factor (Grams per Kg): 1.8 Lower Protein Needs (Protein): 104 Upper Protein Needs (Protein): 125 Fluid Factor (ml/kg): 30 Estimated Fluid Needs (ml): 2,085 Dietitian Reviewed in Medical Record: Current diet, Curent medications, Intake & Output, Labs Diet Order: [id number] Mech Soft Objective Comments: PMH Includes: Dementia, CAD s/p CABG x 3, CVA, HTN, COPD, gastric bypass surgery , Crohns disease, h/o alcohol use A1C 6.2; Accucheck 89 Meds Include: Metformin, Seroquel, Theragran, B12, Lipitor, Oscal, Keppra, Protonix, Neurontin Feeding - Current PO Supplement Current Supplement: Glucerna Shake Current Supplement Flavor: Other Current Frequency of Supplement: Three times a day Current kCals Provided by Supplement: 220 Current Protein Provided by Supplement: 10 - kCal Count Day 1 kCal Intake: 475 Day 1 Protein Intake: 34 Day 2 kCal Intake: 0 (0-10% per nursing) Day 2 Protein Intake: 0 (0-10% per nursing) Day 3 kCal Intake: 420 (only 2 meals) Day 3 Protein Intake: 18 (only 2 meals) Assessment Assessment: Pt is at nutritional risk r/t poor po intake. Calorie Count complete, pt's po intake is extremely inadequate. Pt w/history of gastric bypass surgery and requires increased dietary protein. Recommend considering an alternate route of nutrition. If pt is to be on a TF, recommend Glucerna 1.5 with a goal rate of 50 ml/hr to provide 1800 kcals, 99 gms protein and 911 mls free water. Will monitor clinical course. Recommendations: Calorie count complete, po intake inadequate to meet pt's needs Recommend considering an alternate route of nutrition If pt is put on a TF, recommend Glucerna 1.5 with goal rate 50 ml/hr Dietitian to Monitor: Lab values, Glucose level, Supplement acceptance, Intake & Output, Diet tolerance, Weight change, PO Intake, Medical course
[2017-10-03] MEDS: LORazepam 0.5 MG Tablet PO PRN (20:26)
[2017-10-03] MEDS ORDERED: Haloperidol Inj 5 MG/ML Ampul IM ONE (21:49)
[2017-10-03] MEDS ORDERED: Haloperidol Inj 5 MG/ML Ampul ONE (21:52)
[2017-10-04] MEDS: Potassium Chloride 10 MEQ ER Capsule PO SCH (09:42)
[2017-10-04] MEDS: Gabapentin 400 MG Capsule PO SCH (09:42)
[2017-10-04] MEDS: Calcium/Vitamin D 250/125 MG Tablet PO SCH (09:43)
[2017-10-04] MEDS: levETIRAcetam 500 MG Tablet PO SCH (09:43)
[2017-10-04] MEDS: QUEtiapine 25 MG Tablet PO SCH (15:11)
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
[2017-10-05] MEDS: Gabapentin 400 MG Capsule PO SCH ×3 (06:00→21:43)
[2017-10-05] MEDS: levETIRAcetam 500 MG Tablet PO SCH ×3 (06:00→21:43)
[2017-10-05] MEDS: Calcium/Vitamin D 250/125 MG Tablet PO SCH ×3 (06:00→21:43)
[2017-10-05] MEDS: QUEtiapine 25 MG Tablet PO SCH ×2 (10:13→16:25)
[2017-10-05] MEDS: Potassium Chloride 10 MEQ ER Capsule PO SCH (10:13)
--- NOTE | 2017-10-05 14:06 | P.PNPSY ---
Subjective Remarks: Patient was seen and case discussed with nursing. Behavior has markedly improved. There is no agitation or oppositional behavior. Patient is getting along well with a sitter. He is compliant with his medications. Thought process remains quite disorganized and loose Mental Status Examination Appearance: Appropriate, Other ([facility]) Consciousness: Somnolent Orientation: Person, Place Motor Activity: Other (Patient laying in bed) Speech: Unremarkable Language: Adequate Fund of Knowledge: Inadequate Attention and Concentration: Easily distracted Memory: Impaired Mood: Good Affect: Other (Decreased range and intensity) Thought Process & Associations: Loose associations, Disorganized Thought Content: Appropriate Hallucination Type: None Delusion Type: None Suicidal Ideation: No Suicidal Plan: No Suicidal Intention: No Homicidal Ideation: No Homicidal Plan: No Homicidal Intention: No Insight: Poor Judgment: Impulsive Assessment and Plan - Assessment (1) Dementia with behavioral disturbance Code(s): F03.91 - Unspecified dementia with behavioral disturbance Status: Acute - Plan Plan: Continue current treatment plan Justification for Continued Inpatient Stay: Patient would decompensate in a less restrictive setting (1) Dementia with behavioral disturbance Qualifiers: Dementia type: unspecified type Qualified Code(s): F03.91 - Unspecified dementia with behavioral disturbance
[2017-10-05] MEDS: LORazepam 0.5 MG Tablet PO PRN (21:43)
[2017-10-06] MEDS: Potassium Chloride 10 MEQ ER Capsule PO SCH (10:14)
[2017-10-06] MEDS: levETIRAcetam 500 MG Tablet PO SCH (10:14)
[2017-10-06] MEDS: Calcium/Vitamin D 250/125 MG Tablet PO SCH (10:14)
[2017-10-06] MEDS: Gabapentin 400 MG Capsule PO SCH (10:14)
[2017-10-06] MEDS: QUEtiapine 25 MG Tablet PO SCH (13:03)
--- NOTE | 2017-10-06 20:30 | P.DSPSY ---
Psychiatry Discharge Summary Inpatient Psychiatric care?: Yes Advance Directives: No Mental Health Advance Directive: No Health Care Proxy: No - Admission Admission Date: September 17, 2017 17:22 - Admission Diagnosis (1) Dementia with behavioral disturbance Code(s): F03.91 - Unspecified dementia with behavioral disturbance Brief History: Patient is a 67 y/o man, , domiciled at nursing facility with past psychiatric history of with past history of depression, no previous psychiatric admissions, previous suicide of self-injurious behavior, with a past medical history significant for TRAIN BRAKEMAN 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 As per chart patient had been agitated and [facility] and had to staff, was alert and oriented to person and place only, and had required restraints and ETO while in the ED due to agitation. Discussion nursing staff reported the patient has been belligerent less evening , chronic in the hallway naked and fell last evening with no subsequent injuries. Patient was found lying hospital bed with sitter at bedside noted B somewhat somnolent but able to answer some questions. Patient states that he is feeling "okay" is alert and oriented only to person but recalls having fallen but was unable to recall events. Patient states that he lives here in the past 6 years. He states that he takes his medications but does not recall events prior to his admission. Patient denies any perceptional disturbances, denies any depressive manic mood at this time. Denies any suicidal homicidal ideation. Patient noted with significant neurocognitive deficits is unable to provide adequate history. Collateral was obtained from reported the patient had been aggressive at the [facility] and that she has been feeling in need of assistance as she does not know what to do with him. She agrees to be patient's healthcare surrogate and guardian advocate during this admission She mentions that patient had been aggressive at the [facility] and medications were adjusted by continue with this behavior which led to his admission now. Consent for medications were reviewed with her which she agreed. Past psychiatric history: Previous psychiatric diagnoses of dementia, previous psychiatric admissions, no previous suicide attempts or self-injurious behavior. Past medical history: TRAIN BRAKEMAN shunt from hemorrhagic stroke, CVA with residual left- sided weakness, COPD, CAD triple bypass, hypertension, dementia Substance use history: Unable to assess Allergies: Clinoril, cephalexin, lovastatin, sertraline Social history: , domiciled a [facility], unemployed. 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 Patient was resumed on quetiapine 25mg PO BID, continued on medications for his chronic medical illnesses, which he tolerated well with no notable adverse drug reactions. Patient noted with occasional episodes of agitation which he required ETOs and redirection but managed to have cessation of agitation with consistency with compliance with medications. Patient was noted with baseline confusion secondary to neurocognitive deficits. Patient was noted with stabilization of mood and was not noted to respond to internal stimuli nor endorse any perceptual disturbances. He was observed by staff to not have had any further behavioral disturbances, not having made any suicidal or homicidal statements and maintained stable mood through admission and was noted to participate with staff adequately. Upon discharge patient stated that he was feeling good, reported well with the treatment, denied any SI, HI, perceptual disturbances or delusions. Patient was counseled on importance of maintaining compliance with treatment and adequate nutritional intake which he agreed with. Safety plan was reviewed with patient. Weighing the acute, chronic, and protective factors and based on the available evidence, I trap setter to a reasonable degree of medical certainty that the patient is at low imminent risk of harm to self or others from a mental illness as defined under the Arellano act and his level of function is adequate as observed on the unit for planned level of outpatient care. He was counseled regarding warning signs for need to return to the psychiatric emergency room as part of a general safety plan. Patient advised to call 911 or go nearest ED in case of emergency. Patient agreed with plan. - Discharge Discharge Date: 10/06/17 - Discharge Diagnosis (1) Dementia with behavioral disturbance Code(s): F03.91 - Unspecified dementia with behavioral disturbance Status: Acute Discharge Disposition: Home - Discharge Instructions Discharge Diet: Heart Healthy Diet Activities You Can Perform: Regular- No Restrictions - Discharge Time > 30 minutes Mental Status Examination Appearance: Appropriate, Other ([facility]) Consciousness: Somnolent Orientation: Person Speech: Unremarkable Language: Adequate Fund of Knowledge: Inadequate Attention and Concentration: Easily distracted Memory: Impaired Mood: Appropriate Affect: Other (Decreased range and intensity) Thought Process & Associations: Other (concrete) Thought Content: Appropriate Hallucination Type: None Delusion Type: None Suicidal Ideation: No Suicidal Plan: No Suicidal Intention: No Homicidal Ideation: No Homicidal Plan: No Homicidal Intention: No Insight: Poor Judgment: Impulsive Discharge/Advance Care Plan - Results Vital Signs: Last Vital Signs Temp 97.2 F L 10/06/17 06:20 Pulse 80 10/06/17 06:20 Resp 17 10/06/17 07:00 BP 112/61 10/06/17 06:20 Pulse Ox 96 10/06/17 06:20 Lab Results: Laboratory Results Hemoglobin A1c 6.2 % (4.3-6.0) H 09/19/17 12:32 Triglycerides 86 MG/DL (42-150) 09/19/17 12:32 Cholesterol 78 MG/DL (120-200) L 09/19/17 12:32 HDL Cholesterol 36.5 MG/DL (40.0-60.0) L 09/19/17 12:32 Summary of Procedures: none Imaging: ITS Impressions Chest X-Ray 09/30/17 00:00 CONCLUSION: No acute cardiopulmonary process Pending Results: None - Medications Number of antipsychotic medications at discharge: 1 - Discharge Care Plan Goals to Promote Your Health: * To prevent worsening of your condition and complications * To maintain your health at the optimal level Directions to Meet Your Goals: Take your medications as prescribed Follow your dietary instruction Follow activity as directed Keep your appointments as scheduled Take your immunizations and boosters as scheduled If your symptoms worsen call your PCP, if no PCP go to Urgent Care Center or Emergency Room For 14/10 questions related to your inpatient stay or results of tests pending at discharge, please contact Dr. Boyd Hernandez MD at Smoking is Dangerous to Your Health. Avoid second hand smoking (1) Dementia with behavioral disturbance Qualifiers: Dementia type: unspecified type Qualified Code(s): F03.91 - Unspecified dementia with behavioral disturbance (1) Dementia with behavioral disturbance Qualifiers: Dementia type: unspecified type Qualified Code(s): F03.91 - Unspecified dementia with behavioral disturbance
== END 2017-10-06 14:30 ==
LOC: H4EA 17:22
PROVIDERS: ADMIT Student in an Organized Health Care Education/Training Program; ATTEND Student in an Organized Health Care Education/Training Program

== ENCOUNTER 2017-10-13 13:44 | Inpatient (IN) ==
--- NOTE | 2017-10-13 14:32 | ED ---
HPI General Chief Complaint: Psychiatric Symptoms Stated Complaint: psych eval Time Seen by Provider: 10/13/17 14:03 Source: patient, RN notes reviewed, old records reviewed and police Limitations: no limitations History of Present Illness HPI Narrative: 67-year-old male presents to the emergency department under Arellano act by a clinical psychologist at his nursing facility, [facility]. According to the Eileen, the patient has been aggressive and hitting staff at the facility. The patient has past medical history of hypertension, hyperlipidemia, cerebrovascular accident, coronary artery disease , COPD, asthma, prior CA, diabetes mellitus, dementia, Triana's esophagitis, anxiety and depression. The patient underwent a COLLAR STARCHER shunt on September 05, 2016. The patient had multiple syncopal events in July and also was diagnosed with a small punctate hemorrhages and a subarachnoid hemorrhage related to trauma from syncope. On exam, the patient is alert and oriented to person and place, but not time. He does have history of dementia. Patient denies any medical complaints. Appears to be unhappy with the facility that he lives in. He is cooperative with me. Moderate severity. Duration: constant History of same: Yes Relieving factors: none Exacerbating factors: none Associated symptoms: denies other symptoms Treatments prior to arrival: placed on mental health hold Related Data Previous Rx's Medication Instructions Recorded atorvastatin 20 mg PO HS 30 Days #30 tab 10/03/17 calcium carbonate-vitamin D3 2 tab PO BID 30 Days #120 tab 10/03/17 [Oyster Shell Calcium-Vit D3] cyanocobalamin (vitamin B-12) 6,000 mcg PO DAILY 30 Days #180 tab 10/03/17 gabapentin 800 mg PO BID 30 Days #60 tab 10/03/17 levetiracetam 1,000 mg PO Q12H 30 Days #120 tab 10/03/17 metformin 500 mg PO DAILY 30 Days #30 tab 10/03/17 multivit with min-folic acid 1 tab PO DAILY 30 Days #30 tab 10/03/17 nifedipine 30 mg PO DAILY 30 Days #30 tab 10/03/17 pantoprazole 40 mg PO DAILY 30 Days #30 tab 10/03/17 potassium chloride 10 meq PO DAILY 30 Days #30 cap 10/03/17 quetiapine 25 mg PO BID@1200,1800 30 Days #60 10/03/17 tab Allergies Allergy/AdvReac Type Severity Reaction Status Date / Time cephalexin Allergy Severe EDEMA Verified 09/17/17 01:12 THROAT lovastatin Allergy Severe Verified 09/17/17 01:12 sertraline Allergy Severe "VERY Verified 09/17/17 01:12 SEVERE OFF BALANCE AND DIARRHEA" CLINORIL Allergy Unknown Uncoded 09/04/16 11:40 Review of Systems Except as stated in HPI: all other systems reviewed are negative [facility] Medical History Medical History Asthma (Acute) Triana esophagus (Acute) CAD (coronary artery disease) (Acute) CKD (chronic kidney disease) stage 3, GFR 30-59 ml/min (Acute) COPD (chronic obstructive pulmonary disease) (Acute) CVA (cerebral vascular accident) (Acute) Dementia (Acute) Diabetes mellitus (Acute) HLD (hyperlipidemia) (Acute) HTN (hypertension) (Acute) Surgical History Surgical History H/O gastric bypass (Acute) Hx of CABG (Acute) S/P COLLAR STARCHER shunt (Acute) Social History Social History Substance History: No History of Abuse Second Hand Smoke Exposure: No Smoking Status: Never smoker How Often Do You Have a Drink Containing Alcohol: Never Hx Recent Travel: No Recent Travel in [facility] within the Last 8 Weeks: No Recent Out of Country Travel within the Last 8 Weeks: No Immunization History Tetanus Immunization: <5 Years Exam Narrative Exam Narrative: GENERAL: Well-nourished, well-developed elderly male patient, afebrile. Patient is oriented to person and place only. SKIN: Focused skin assessment warm/dry. HEAD: Normocephalic. Atraumatic ENT: Mucosa pink and moist. No erythema or exudates. No uvular edema. No uvular , palatal, or tonsillar deviation. Airway patent. Nasal turbinates appear normal without nasal blood, purulent drainage or septal hematoma. Bilateral tympanic membranes clear without erythema or perforation. EYES: No scleral icterus. No injection or drainage. NECK: Supple, trachea midline. No JVD or lymphadenopathy. CARDIOVASCULAR: Regular rate and rhythm without murmurs, gallops, or rubs. RESPIRATORY: Breath sounds equal bilaterally. No accessory muscle use. Lung sounds are clear to auscultation GASTROINTESTINAL: Abdomen soft, non-tender, nondistended. MUSCULOSKELETAL: No cyanosis, or edema. PSYCHIATRIC: No delusional thought processes. No hallucinations. Course Initial Documented Vital Signs Temperature 98.1 F 10/13/17 13:55 Pulse Rate 98 H 10/13/17 13:55 Respiratory Rate 19 10/13/17 13:55 Blood Pressure 130/76 10/13/17 13:55 Pulse Oximetry 98 10/13/17 13:55 Last Documented Vital Signs Temperature 98.1 F 10/13/17 13:55 Pulse Rate 98 H 10/13/17 13:55 Respiratory Rate 19 10/13/17 13:55 Blood Pressure 130/76 10/13/17 13:55 Pulse Oximetry 98 10/13/17 13:55 Medical Decision Making MDM Narrative Medical decision making narrative: 67-year-old male presents to the emergency department under Arellano act by clinical psychologist. Patient was discharged from here on October 06, 2017 for dementia with behavioral disturbance. CBC, CMP, TSH, alcohol level, UA, urine drug screen, CT the brain are ordered and pending. CBC shows no acute abnormality. CMP shows creatinine of 1.40. TSH is 1.370. UA is negative for acute infection. UDS is negative. Alcohol level is less than 3. CT of the brain shows no significant change, no acute hemorrhage or mass-effect. Patient is medically cleared for psychiatric screening and disposition. Differential Diagnosis Differential Diagnosis: Dementia versus behavioral disturbances versus depression versus anxiety versus electrolyte abnormality versus intracranial abnormality Medical Records Medical records reviewed: Yes I reviewed the patient's medical records. Lab Data Result diagrams: 10/13/17 14:30 10/13/17 14:30 Lab Results 10/13/17 10/13/17 10/13/17 Range/Units 14:30 14:30 17:25 WBC 6.2 (4.0-11.0) th/mm3 RBC 5.08 (4.50-5.90) mil/mm3 Hgb 13.2 (13.0-17.0) gm/dL Hct 39.8 (39.0-51.0) % MCV 78.4 L (80.0-100.0) fL MCH 26.0 L (27.0-34.0) pg MCHC 33.1 (32.0-36.0) % RDW 15.9 (11.6-17.2) % Plt Count 209 (150-450) th/mm3 MPV 9.8 (7.0-11.0) fL Neut % (Auto) 67.8 (16.0-70.0) % Lymph % (Auto) 19.0 (9.0-44.0) % [place] % (Auto) 10.0 H (0.0-8.0) % Eos % (Auto) 2.0 (0.0-4.0) % Baso % (Auto) 1.2 (0.0-2.0) % Neut # (Auto) 4.2 (1.8-7.7) th/mm3 Lymph # (Auto) 1.2 (1.0-4.8) th/mm3 [place] # (Auto) 0.6 (0.0-0.9) th/mm3 Eos # (Auto) 0.1 (0.0-0.4) th/mm3 Baso # (Auto) 0.1 (0.0-0.2) th/mm3 WBC Differential . Differential Comment Auto diff final Sodium 140 (136-145) meq/L Potassium 4.6 (3.5-5.1) meq/L Chloride 107 (98-107) meq/L Carbon Dioxide 30.2 (21.0-32.0) meq/L Anion Gap 3 L (5-15) meq/L BUN 8 (7-18) mg/dL Creatinine 1.40 H (0.60-1.30) mg/dL Estimated GFR 50 L (>89) mL/min Random Glucose 93 (74-106) mg/dL Calcium 9.1 (8.5-10.1) mg/dL Total Bilirubin 0.6 (0.2-1.0) mg/dL AST 16 (15-37) U/L ALT 24 (12-78) U/L Alkaline Phosphatase 74 (45-117) U/L Total Protein 7.1 (6.4-8.2) g/dL Albumin 3.6 (3.4-5.0) g/dL TSH 1.370 (0.358-3.740) uIU/mL Urine Color (Yellw/Straw) Urine Clarity (Clear) Urine pH (5.0-8.5) Ur Specific Neeses (1.002-1.035) Urine Protein (Neg-Trace) mg/dL Urine Glucose (UA) (Negative) mg/dL Urine Ketones (Negative) mg/dL Urine Occult Blood (Negative) Urine Nitrate (Negative) Urine Bilirubin (Negative) Urine Urobilinogen (Less than 2) mg/dL Ur Leukocyte Esterase (Negative) Urine RBC (0-3) /hpf Urine WBC (0-5) /hpf Ur Squamous Epith Cells (0-5) /hpf Urine Bacteria (None) /hpf Hyaline Casts (0-3) /lpf Urine Mucus (Occasional) /lpf Micro UA Comment Urine Culture Comments Urine Opiates Screen Neg (Neg) Ur Barbiturates Screen Neg (Neg) Ur Amphetamines Screen Neg (Neg) U Benzodiazepines Scrn Neg (Neg) Urine Cocaine Screen Neg (Neg) U Cannabinoids Screen Neg (Neg) Serum Alcohol Less than 3 (0-5) mg/dL 10/13/17 Range/Units 17:25 WBC (4.0-11.0) th/mm3 RBC (4.50-5.90) mil/mm3 Hgb (13.0-17.0) gm/dL Hct (39.0-51.0) % MCV (80.0-100.0) fL MCH (27.0-34.0) pg MCHC (32.0-36.0) % RDW (11.6-17.2) % Plt Count (150-450) th/mm3 MPV (7.0-11.0) fL Neut % (Auto) (16.0-70.0) % Lymph % (Auto) (9.0-44.0) % [place] % (Auto) (0.0-8.0) % Eos % (Auto) (0.0-4.0) % Baso % (Auto) (0.0-2.0) % Neut # (Auto) (1.8-7.7) th/mm3 Lymph # (Auto) (1.0-4.8) th/mm3 [place] # (Auto) (0.0-0.9) th/mm3 Eos # (Auto) (0.0-0.4) th/mm3 Baso # (Auto) (0.0-0.2) th/mm3 WBC Differential Differential Comment Sodium (136-145) meq/L Potassium (3.5-5.1) meq/L Chloride (98-107) meq/L Carbon Dioxide (21.0-32.0) meq/L Anion Gap (5-15) meq/L BUN (7-18) mg/dL Creatinine (0.60-1.30) mg/dL Estimated GFR (>89) mL/min Random Glucose (74-106) mg/dL Calcium (8.5-10.1) mg/dL Total Bilirubin (0.2-1.0) mg/dL AST (15-37) U/L ALT (12-78) U/L Alkaline Phosphatase (45-117) U/L Total Protein (6.4-8.2) g/dL Albumin (3.4-5.0) g/dL TSH (0.358-3.740) uIU/mL Urine Color Yellow (Yellw/Straw) Urine Clarity Hazy H (Clear) Urine pH 5.0 (5.0-8.5) Ur Specific Neeses 1.013 (1.002-1.035) Urine Protein Negative (Neg-Trace) mg/dL Urine Glucose (UA) Negative (Negative) mg/dL Urine Ketones Negative (Negative) mg/dL Urine Occult Blood Negative (Negative) Urine Nitrate Negative (Negative) Urine Bilirubin Negative (Negative) Urine Urobilinogen 4 or greater (Less than 2) mg/dL Ur Leukocyte Esterase Negative (Negative) Urine RBC Less than 1 (0-3) /hpf Urine WBC 2 (0-5) /hpf Ur Squamous Epith Cells <1 (0-5) /hpf Urine Bacteria Rare H (None) /hpf Hyaline Casts 4 (0-3) /lpf Urine Mucus Few H (Occasional) /lpf Micro UA Comment Culture not ind Urine Culture Comments Culture not ind Urine Opiates Screen (Neg) Ur Barbiturates Screen (Neg) Ur Amphetamines Screen (Neg) U Benzodiazepines Scrn (Neg) Urine Cocaine Screen (Neg) U Cannabinoids Screen (Neg) Serum Alcohol (0-5) mg/dL Imaging Data Radiologist's impression: Head CT 10/13/17 14:25 CONCLUSION: 1. No significant change. No acute hemorrhage or mass effect. 2. The ventricular shunt catheter remains in place with stable appearance of ventricular system. 3. Multiple stable areas of encephalomalacia greater 4. Status post right parietal craniotomy. 5. Atrophy, chronic small vessel ischemic change and chronic infarcts are again noted. Discharge Plan Discharge Disposition Patient Disposition: 30 Still Patient Discharge Details Diagnosis: Dementia with behavioral disturbance Physicians Team ED Provider: Janny Caldera ED Midlevel Provider: Mary Anne Ramos Primary Care Provider: UNKNOWN, Rxs /Orders / Referrals /Forms Prescriptions: No Action quetiapine 25 mg Tablet 25 mg PO BID@1200,1800 30 Days Qty: 60 RF: 0 calcium carbonate-vitamin D3 [Oyster Shell Calcium-Vit D3] 250-125 mg-unit Tablet 2 tab PO BID 30 Days Qty: 120 RF: 0 metformin 500 mg Tablet 500 mg PO DAILY 30 Days Qty: 30 RF: 0 atorvastatin 20 mg Tablet 20 mg PO HS 30 Days Qty: 30 RF: 0 levetiracetam 500 mg Tablet 1,000 mg PO Q12H 30 Days Qty: 120 RF: 0 cyanocobalamin (vitamin B-12) 1,000 mcg Tablet 6,000 mcg PO DAILY 30 Days Qty: 180 RF: 0 nifedipine 30 mg Tablet Extended Release 30 mg PO DAILY 30 Days Qty: 30 RF: 0 gabapentin 800 mg Tablet 800 mg PO BID 30 Days Qty: 60 RF: 0 pantoprazole 40 mg Tablet,Delayed Release (Dr/Ec) 40 mg PO DAILY 30 Days Qty: 30 RF: 0 multivit with min-folic acid 400 mcg Tablet Extended Release 1 tab PO DAILY 30 Days Qty: 30 RF: 0 potassium chloride 10 mEq Capsule, Extended Release 10 meq PO DAILY 30 Days Qty: 30 RF: 0 Status ED Status: With Doctor
--- NOTE | 2017-10-13 14:55 | CT ---
EXAM DATE: 10/13/2017 2:49 PM EDT AGE/SEX: 67 years / Male INDICATIONS: Altered mental status CLINICAL DATA: This is the patient's initial encounter. Patient reports that signs and symptoms have been present for 1 day and indicates a pain score of 0/10. MEDICAL/SURGICAL HISTORY: Hypertension. Cerebrovascular disease. CABG. 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 . TECHNIQUE: CT of the head without contrast. Using automated exposure control and adjustment of the mA and/or kV according to patient size, radiation dose was kept as low as reasonably achievable to ob tain optimal diagnostic quality images. DICOM format image data is available electronically for revi ew and comparison. FINDINGS: The ventricular shunt catheter remains in place via a right frontal approach with the tip in the micki on of the third ventricle. This is unchanged. The ventricular system is stable in appearance with dif fuse mild prominence. There is a focal area of encephalomalacia again noted involving the right parie rogelio lobe. Encephalomalacia is also again noted in the right occipital lobe and right frontal lobe as well. There is do not appear significantly changed. There is diffuse moderate atrophic change with uribe lcal and ventricular prominence. Chronic small lacunar infarcts again noted in the basal ganglia. There is no acute hemorrhage, mass effect or midline shift. The posterior fossa and brainstem remain intact. The bone windows again demonstrate the patient is status post right parietal craniotomy. CONCLUSION: 1. No significant change. No acute hemorrhage or mass effect. 2. The ventricular shunt catheter remains in place with stable appearance of ventricular system. 3. Multiple stable areas of encephalomalacia greater 4. Status post right parietal craniotomy. 5. Atrophy, chronic small vessel ischemic change and chronic infarcts are again noted. Electronically signed by: Drew Salas MD 10/13/2017 2:54 PM EDT
[2017-10-13 15:10] LABS: Baso # (Auto) 0.1 th/mm3 (0.0-0.2); Baso % (Auto) 1.2 % (0.0-2.0); Eos # (Auto) 0.1 th/mm3 (0.0-0.4); Hematocrit 39.8 % (39.0-51.0); Hemoglobin 13.2 gm/dL (13.0-17.0); Lymph # (Auto) 1.2 th/mm3 (1.0-4.8); Mean Corpuscular HGB Conc 33.1 % (32.0-36.0); Mean Corpuscular Volume 78.4 fL (80.0-100.0); Mean Platelet Volume 9.8 fL (7.0-11.0); Mono # (Auto) 0.6 th/mm3 (0.0-0.9); Neut # (Auto) 4.2 th/mm3 (1.8-7.7); Neut % (Auto) 67.8 % (16.0-70.0); Platelet Count 209 th/mm3 (150-450); Red Blood Count 5.08 mil/mm3 (4.50-5.90); Red Cell Distribution Width 15.9 % (11.6-17.2); White Blood Count 6.2 th/mm3 (4.0-11.0)
[2017-10-13 15:31] LABS: Alanine Aminotransferase 24 U/L (12-78); Albumin 3.6 g/dL (3.4-5.0); Anion Gap 3 meq/L (5-15); Aspartate Aminotransferase 16 U/L (15-37); Blood Urea Nitrogen 8 mg/dL (7-18); Calcium 9.1 mg/dL (8.5-10.1); Carbon Dioxide 30.2 meq/L (21.0-32.0); Chloride 107 meq/L (98-107); Glomerular Filtration Rate 50 mL/min (>89); Glucose,Random 93 mg/dL (74-106); Potassium 4.6 meq/L (3.5-5.1); Sodium 140 meq/L (136-145)
[2017-10-13 15:40] LABS: Alkaline Phosphatase 74 U/L (45-117); Total Protein 7.1 g/dL (6.4-8.2)
[2017-10-13 17:57] LABS: Bacteria,Urine Rare /hpf; Bilirubin,Urine Negative (Negative); Clarity,Urine Hazy (Clear); Color,Urine Yellow (Yellw/Straw); Glucose,Urine (UA) Negative (Negative); Hyaline Casts,Urine 4 /lpf (0-3); Leukocyte Esterase,Urine Negative (Negative); Mucus,Urine Few /lpf (Occasional); Nitrite,Urine Negative (Negative); Specific Gravity,Urine 1.013 (1.002-1.035); Squamous Epithelial Cell,Urine <1 /hpf (0-5); Urobilinogen,Urine 4 or Greater mg/dL (Less than 2)
[2017-10-13 17:58] LABS: Amphetamine Screen,Urine Neg (Neg); Barbiturate Screen,Urine Neg (Neg); Cannabinoid Screen,Urine Neg (Neg); Cocaine Screen,Urine Neg (Neg)
[2017-10-13 18:19] LABS: Opiate Screen,Urine Neg (Neg)
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
[2017-10-14] MEDS: Lisinopril 20 MG Tablet PO SCH (11:34)
[2017-10-14] MEDS: QUEtiapine 25 MG Tablet PO SCH ×2 (11:35→20:12)
[2017-10-14] MEDS: levETIRAcetam 500 MG Tablet PO SCH ×2 (11:36→23:56)
[2017-10-14] MEDS ORDERED: Dextrose 50% in Water 50 ML Vial IV.PUSH PRN (11:41)
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
[2017-10-14] MEDS: Insulin NovoLOG Aspart Correctional Sugar Inj SQ SCH ×2 (17:08→20:27)
[2017-10-15] MEDS: Insulin NovoLOG Aspart Correctional Sugar Inj SQ SCH ×3 (03:00→23:55)
[2017-10-15] MEDS: Lisinopril 20 MG Tablet PO SCH (08:11)
[2017-10-15] MEDS: QUEtiapine 25 MG Tablet PO SCH ×2 (08:11→20:41)
[2017-10-15 08:22] LABS: Alanine Aminotransferase 22 U/L (12-78); Albumin 3.3 g/dL (3.4-5.0); Anion Gap 10 meq/L (5-15); Aspartate Aminotransferase 16 U/L (15-37); Blood Urea Nitrogen 10 mg/dL (7-18); Calcium 8.9 mg/dL (8.5-10.1); Carbon Dioxide 25.4 meq/L (21.0-32.0); Chloride 110 meq/L (98-107); Glomerular Filtration Rate 31 mL/min (>89); Glucose,Random 78 mg/dL (74-106); Magnesium 2.2 mg/dL (1.5-2.5); Sodium 145 meq/L (136-145)
[2017-10-15 08:23] LABS: Phosphorus 4.1 mg/dL (2.5-4.9)
[2017-10-15 08:31] LABS: Alkaline Phosphatase 70 U/L (45-117); Free T4 (Free Thyroxine) 0.92 ng/dL (0.76-1.46); Total Protein 6.6 g/dL (6.4-8.2)
[2017-10-15] MEDS ORDERED: Sod Chloride 0.9% Inj 1,000 ML IV.CONT SCH (09:00)
--- NOTE | 2017-10-15 09:33 | P.PNIM ---
Subjective Interval history: Patient is a 67-year-old male who presented to the emergency department under Arellano act that was started by a clinical psychologist at his nursing facility which was [facility]. Per the Arellano act the patient had been aggressive and hitting staff at the facility. 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 He has had issues with multiple syncopal events in the past and had a small punctate hemorrhages and a subarachnoid hemorrhage related to trauma from syncope. The patient also has dementia. We have been asked to consult regarding medical management for all his previous issues. Per chart review had a Arellano act had been aggressive and hitting staff at the facility. Per the Arellano act he had to staff person's earlier today and refused treatment. That has been present and delusional statements about his , and the murmur was called was [facility]. Return to the facility from August continue to have combative and aggressive behaviors. He was refusing care as well as his medications. The patient left his room wearing only patient was yelling at staff members and refusing to return to his room only wearing a diaper 7-25 WILL STOP LISINOPRIL AND METFORMIN DUE TO ELEVATED CR WILL HAVE RN PLACE IV AND GIVE NS AT 100ML /HOUR NO NEW COMPLAINTS DID NOT TAKE MEDICATIONS TODAY DW RN AND PT Physical Exam Vital signs: Vital Signs 10/14/17 11:20 10/14/17 16:00 10/14/17 18:04 Temperature 98.6 F 97.4 F L 98.7 F Pulse Rate 97 H 95 H 104 H Respiratory Rate 18 18 16 Blood Pressure 133/76 108/58 L 113/69 Pulse Oximetry 98 95 97 10/15/17 05:51 Temperature 98.7 F Pulse Rate 71 Respiratory Rate 17 Blood Pressure 92/55 L Pulse Oximetry 97 Intake & Output 10/14/17 10/15/17 10/15/17 18:59 06:59 18:59 Intake Total 0 / 0 480 / 480 Balance 0 / 0 480 / 480 Weight 90.6 kg Intake: Oral 0 / 0 480 / 480 Other: # Voids 0 Narrative: GENERAL: Awake and alert confused not really following commands at this time SKIN: Warm and dry. HEAD: Atraumatic. Normocephalic. EYES: Pupils equal and round. No scleral icterus. No injection or drainage. ENT: No nasal bleeding or discharge. Mucous membranes pink and moist. Oral mucosa is moist NECK: Trachea midline. No JVD. CARDIOVASCULAR: Regular rate and rhythm. S1-S2 no S3 or S4 RESPIRATORY: No accessory muscle use. Clear to auscultation. Breath sounds equal bilaterally. GASTROINTESTINAL: Abdomen soft, non-tender, nondistended. Hepatic and splenic margins not palpable. MUSCULOSKELETAL: Extremities without clubbing, cyanosis, or edema. No obvious deformities. NEUROLOGICAL: Awake and alert. No obvious cranial nerve deficits. Motor grossly within normal limits. Five out of 5 muscle strength in the arms and legs. ABNormal speech. Moves all 4 extremities PSYCHIATRIC: INAppropriate mood and affect; insight and judgment ABnormal. Results - Labs CBC & Chem 7: 10/13/17 14:30 10/15/17 07:38 Laboratory Results - last 24 hr 10/14/17 10/14/17 10/15/17 16:44 19:16 07:38 Sodium 145 Potassium 4.0 Chloride 110 H Carbon Dioxide 25.4 Anion Gap 10 BUN 10 Creatinine 2.14 H Estimated GFR 31 L POC Glucose 99 149 H Random Glucose 78 Calcium 8.9 Phosphorus 4.1 Magnesium 2.2 Total Bilirubin 0.8 AST 16 ALT 22 Alkaline Phosphatase 70 Total Protein 6.6 Albumin 3.3 L TSH 1.800 Free T4 0.92 10/15/17 08:12 Sodium Potassium Chloride Carbon Dioxide Anion Gap BUN Creatinine Estimated GFR POC Glucose 155 H Random Glucose Calcium Phosphorus Magnesium Total Bilirubin AST ALT Alkaline Phosphatase Total Protein Albumin TSH Free T4 Assessment and Plan - Plan Acute psychiatric event with chronic dementia currently under Arellano act will defer to psychiatry Seroquel etc. per Hypertension continue home medications continue on lisinopril-- HOLD LISINOPRIL DUE TO ELEVATED CR--CONTINUE ON NIFEDIPINE Hyperlipidemia continue home medications continue on atorvastatin or the equivalent History of CVA get physical therapy and occupational therapy to eval and treat Coronary artery disease by history continue home meds COPD/asthma medication home medications Diabetes mellitus continue on sliding scale coverage STOP METFORMIN DUE TO ELEVATED CR History of Triana's esophagus continue on GI prophylaxis continue on Protonix History of MACHINE DEBURRER shunt currently appears stable Chronic renal insufficiency creatinine is 1.40- WORSE TODAY WILL ORDER IV FLUIDS Possible seizure prophylaxis due to recent subarachnoid hemorrhages continue on Keppra We will repeat a.m. labs Code Status: FULL CODE Discussed Condition With: RN AND PT Discharge Planning: Once cleared by psychiatry CONTINUE IV FLUIDS AM LABS
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
[2017-10-15] MEDS: levETIRAcetam 500 MG Tablet PO SCH ×2 (15:22→23:57)
[2017-10-15 17:50] LABS: Hemoglobin A1c 6.1 % (4.3-6.0)
[2017-10-16] MEDS: QUEtiapine 25 MG Tablet PO SCH ×2 (09:30→20:49)
[2017-10-16 10:21] LABS: Baso # (Auto) 0.1 th/mm3 (0.0-0.2); Baso % (Auto) 2.2 % (0.0-2.0); Eos # (Auto) 0.2 th/mm3 (0.0-0.4); Eos % (Auto) 4.8 % (0.0-4.0); Hematocrit 37.5 % (39.0-51.0); Hemoglobin 12.4 gm/dL (13.0-17.0); Lymph # (Auto) 1.3 th/mm3 (1.0-4.8); Lymph % (Auto) 29.2 % (9.0-44.0); Mean Corpuscular HGB Conc 33.1 % (32.0-36.0); Mean Corpuscular Hemoglobin 25.7 pg (27.0-34.0); Mean Corpuscular Volume 77.5 fL (80.0-100.0); Mean Platelet Volume 9.4 fL (7.0-11.0); Mono # (Auto) 0.6 th/mm3 (0.0-0.9); Mono % (Auto) 13.7 % (0.0-8.0); Neut # (Auto) 2.3 th/mm3 (1.8-7.7); Neut % (Auto) 50.1 % (16.0-70.0); Platelet Count 182 th/mm3 (150-450); Red Blood Count 4.84 mil/mm3 (4.50-5.90); Red Cell Distribution Width 15.8 % (11.6-17.2); White Blood Count 4.6 th/mm3 (4.0-11.0)
[2017-10-16 10:42] LABS: Alanine Aminotransferase 21 U/L (12-78); Albumin 3.4 g/dL (3.4-5.0); Anion Gap 8 meq/L (5-15); Aspartate Aminotransferase 16 U/L (15-37); Blood Urea Nitrogen 15 mg/dL (7-18); Calcium 8.8 mg/dL (8.5-10.1); Carbon Dioxide 27.3 meq/L (21.0-32.0); Chloride 110 meq/L (98-107); Glomerular Filtration Rate 40 mL/min (>89); Glucose,Random 75 mg/dL (74-106); Magnesium 2.2 mg/dL (1.5-2.5); Phosphorus 4.1 mg/dL (2.5-4.9); Sodium 145 meq/L (136-145)
[2017-10-16 10:44] LABS: Alkaline Phosphatase 68 U/L (45-117); Total Protein 6.8 g/dL (6.4-8.2)
[2017-10-16] MEDS: Insulin NovoLOG Aspart Correctional Sugar Inj SQ SCH ×3 (11:08→20:14)
[2017-10-16] MEDS: levETIRAcetam 500 MG Tablet PO SCH (11:10)
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
--- NOTE | 2017-10-16 13:26 | P.PNPSY ---
Subjective Remarks: Patient seen for follow, chart reviewed. Discussion nursing staff reported the patient with the whole behavioral services aside from having some irritability less evening but was redirectable. Patient had slept, compliant with medications and noted to have poor p.o. intake. Patient was found lying hospital bed asleep was able to wake up to interact with interview superficially stating that he is feeling "okay" denying any physical complaints at this time states that he is eating and drinking well and was encouraged to continue adequate p.o. intake which he agreed. Patient denies any perceptual disturbances or delusions. Review of Systems All other systems reviewed negative except as stated in HPI Mental Status Examination Appearance: Disheveled Consciousness: Alert (Wearing only a diaper) Orientation: Person Motor Activity: Normal gait Speech: Other Language: Adequate Fund of Knowledge: Poor (Unable to evaluate) Attention and Concentration: Inadequate Memory: Impaired Mood: Good Affect: Blunt Thought Process & Associations: Disorganized Thought Content: Other Hallucination Type: None (Does not appear internally stimulated) Delusion Type: None Suicidal Ideation: No Suicidal Plan: No Suicidal Intention: No Homicidal Ideation: No Homicidal Plan: No Homicidal Intention: No Insight: Poor Judgment: Poor Assessment and Plan - Assessment (1) Dementia with behavioral disturbance Code(s): F03.91 - Unspecified dementia with behavioral disturbance Status: Acute - Plan Plan: Patient continue with baseline confusion secondary to neurocognitive deficits. Patient with moments of irritability but redirectable and has not had any agitation or aggressive behavior since admission. We will continue current treatment. We will continue to monitor mood and behavior. Discharge planning a progress. Justification for Continued Inpatient Stay: At risk of further decompensation a lower level of care. (1) Dementia with behavioral disturbance Qualifiers: Dementia type: unspecified type Qualified Code(s): F03.91 - Unspecified dementia with behavioral disturbance
[2017-10-17] MEDS: Insulin NovoLOG Aspart Correctional Sugar Inj SQ SCH ×4 (04:36→16:51)
[2017-10-17] MEDS: QUEtiapine 25 MG Tablet PO SCH ×2 (08:24→20:57)
--- NOTE | 2017-10-17 11:13 | P.PNPSY ---
Subjective Remarks: Reviewed electronic medical records and discussed case with staff. Follow-up was conducted in patient's room. Patient found lying in bed. He reports that he has been sleeping well but states he had a little bit of difficulty falling asleep due to all of the "snakes on the wall". He then points out one of the snakes. He states that his appetite has been "poor". However he does not appear to be in any distress. Mental Status Examination Appearance: Disheveled Consciousness: Alert (Wearing only a diaper) Orientation: Person Motor Activity: Normal gait Speech: Other Language: Adequate Fund of Knowledge: Poor (Unable to evaluate) Attention and Concentration: Inadequate Memory: Impaired Mood: Good Affect: Blunt Thought Process & Associations: Disorganized Thought Content: Other Hallucination Type: None (Does not appear internally stimulated) Delusion Type: None Suicidal Ideation: No Suicidal Plan: No Suicidal Intention: No Homicidal Ideation: No Homicidal Plan: No Homicidal Intention: No Insight: Poor Judgment: Poor Assessment and Plan - Assessment (1) Dementia with behavioral disturbance Code(s): F03.91 - Unspecified dementia with behavioral disturbance Status: Acute - Plan Plan: Patient will be reevaluated Friday by the attending psychiatrist. Continue with current treatment plan. Patient remains confused and delusional. Justification for Continued Inpatient Stay: Moving this patient to a less restrictive environment would likely result in decompensation. (1) Dementia with behavioral disturbance Qualifiers: Dementia type: unspecified type Qualified Code(s): F03.91 - Unspecified dementia with behavioral disturbance
[2017-10-17] MEDS: levETIRAcetam 500 MG Tablet PO SCH ×2 (11:38→20:58)
--- NOTE | 2017-10-17 12:10 | P.DIET ---
Nutritional Evaluation Type of nutrition evaluation: initial Nutrition screening: [facility] [place] 10/17 [facility] [place] Subjective Barriers to Nutrition: Refuses to eat at times Subjective Comments: Pt reports a poor appetite Objective - Diagnosis Dementia with Behavioral Disturbance - Objective [place] body weight: 154 kg (used HT from prev adm 10 days ago) % IBW: 129 Body Weight Used for Calculations: IBW (70kg) Energy Needs - Lower Range (kCal/kg): 25 Energy Needs - Upper Range (kCal/kg): 30 Lower Limit kCal/kg (kCals): 1,750 Upper Limit kCal/kg (kCals): 2,100 Lower Limit Protein Factor (Grams per Kg): 1.5 Upper Limit Protein Factor (Grams per Kg): 1.8 Lower Protein Needs (Protein): 105 Upper Protein Needs (Protein): 126 Fluid Factor (ml/kg): 30 Estimated Fluid Needs (ml): 2,100 Dietitian Reviewed in Medical Record: Current diet, Curent medications, Intake & Output, Labs, Medical history Diet Order: Regular Oral Diet Intake Amount: Poor <50% Objective Comments: PMH includes, CAD s/p CABG x 3, [place], CVA, HTN, HLD, DM, Gastric Bypass Surgery, Crohn's Disease, anxiety, depression, dementia, Triana's esophagitis Meds include: Lipitor, Keppra, Procardia, Seroquel, Novolog Labs include: Cr 1.70, Glu 75, POC Glu 135, 86, Hgb A1C 6.1 (-)BM Feeding - Current PO Supplement Current Supplement: Glucerna Shake Current Frequency of Supplement: Daily Current kCals Provided by Supplement: 220 Current Protein Provided by Supplement: 10 Supplement Comments: Pt receiving 6 Glucerna shakes/day as he did last admission Assessment Assessment: Pt at nutritional risk r/t dx and poor po intake. Pt known to this clinician from previous admission; pt d/c'd 11 days ago. Nutritional needs as assessed above. Since admission, pt's po intake has been poor. Will provide Glucerna shakes as per previous admission. If a carbohydrate-controlled diet is preferred , recommend 1999 ADA. Noted elevated Cr; will monitor. Will monitor po intake, clinical course. Recommendations: Regular diet Will send Glucerna 6/day as per previous admission Dietitian to Monitor: Lab values, Renal labs, Supplement acceptance, Intake & Output, Diet tolerance, Weight change, PO Intake, Medical course
[2017-10-18] MEDS: Insulin NovoLOG Aspart Correctional Sugar Inj SQ SCH ×3 (05:01→20:11)
[2017-10-18] MEDS: levETIRAcetam 500 MG Tablet PO SCH ×2 (09:45→21:52)
[2017-10-18] MEDS: QUEtiapine 25 MG Tablet PO SCH ×2 (16:18→20:34)
--- NOTE | 2017-10-18 18:50 | P.PNPSY ---
Subjective Chief Complaint: - Remarks: Patient was seen and case discussed with nursing. Patient is pleasant and cooperative with exam. Is alert and oriented 2. His behaving well on the unit. Compliant with his medications. No outbursts today Mental Status Examination Appearance: Disheveled Consciousness: Alert (Wearing only a diaper) Orientation: Person Motor Activity: Normal gait Speech: Other Language: Adequate Fund of Knowledge: Poor (Unable to evaluate) Attention and Concentration: Inadequate Memory: Impaired Mood: Good Affect: Blunt Thought Process & Associations: Disorganized Thought Content: Other Hallucination Type: None (Does not appear internally stimulated) Delusion Type: None Suicidal Ideation: No Suicidal Plan: No Suicidal Intention: No Homicidal Ideation: No Homicidal Plan: No Homicidal Intention: No Insight: Poor Judgment: Poor Assessment and Plan - Assessment (1) Dementia with behavioral disturbance Code(s): F03.91 - Unspecified dementia with behavioral disturbance Status: Acute - Plan Plan: Continue current treatment plan Justification for Continued Inpatient Stay: Patient would decompensate in a less restrictive setting (1) Dementia with behavioral disturbance Qualifiers: Dementia type: unspecified type Qualified Code(s): F03.91 - Unspecified dementia with behavioral disturbance
[2017-10-19] MEDS: Insulin NovoLOG Aspart Correctional Sugar Inj SQ SCH ×4 (02:41→20:16)
[2017-10-19] MEDS: QUEtiapine 25 MG Tablet PO SCH ×2 (09:35→20:16)
--- NOTE | 2017-10-19 16:48 | P.PNPSY ---
Subjective Chief Complaint: - Remarks: Patient was seen and case discussed with nursing. Patient is alert and oriented 2. When asked about the date patient becomes irritable and starts yelling. Per nursing he has sporadic outbursts throughout the day. Per nursing , he was shoving and physical this morning. He is compliant with his medication. Insight remains quite poor Mental Status Examination Appearance: Disheveled Consciousness: Alert (Wearing only a diaper) Orientation: Person, Place Motor Activity: Normal gait Speech: Other Language: Adequate Fund of Knowledge: Poor (Unable to evaluate) Attention and Concentration: Inadequate Memory: Impaired Mood: Angry, Irritable Affect: Blunt Thought Process & Associations: Disorganized Thought Content: Other Hallucination Type: None (Does not appear internally stimulated) Delusion Type: None Suicidal Ideation: No Suicidal Plan: No Suicidal Intention: No Homicidal Ideation: No Homicidal Plan: No Homicidal Intention: No Insight: Poor Judgment: Poor Assessment and Plan - Assessment (1) Dementia with behavioral disturbance Code(s): F03.91 - Unspecified dementia with behavioral disturbance Status: Acute - Plan Plan: Continue current treatment plan Justification for Continued Inpatient Stay: Patient would decompensate in a less restrictive setting (1) Dementia with behavioral disturbance Qualifiers: Dementia type: unspecified type Qualified Code(s): F03.91 - Unspecified dementia with behavioral disturbance
[2017-10-19] MEDS: levETIRAcetam 500 MG Tablet PO SCH (17:39)
[2017-10-20] MEDS: Insulin NovoLOG Aspart Correctional Sugar Inj SQ SCH ×5 (04:29→20:31)
[2017-10-20] MEDS: levETIRAcetam 500 MG Tablet PO SCH ×3 (04:30→22:08)
[2017-10-20] MEDS: QUEtiapine 25 MG Tablet PO SCH ×2 (08:59→20:29)
--- NOTE | 2017-10-20 16:53 | P.PNPSY ---
Subjective Chief Complaint: - Remarks: Patient seen for follow, chart reviewed. Discussion nursing staff reported the patient with some irritability this morning with roommates but no aggressive behavior. Patient fell prior to her interview was not witnessed to have hit his head but reported some right hip pain. Patient noted to be upset of recent fall, denying any other physical complaints other than the right hip denying having hit his head during the fall. Patient continues to deny any perceptional services or delusions are continue with baseline confusion. Review of Systems All other systems reviewed negative except as stated in HPI Mental Status Examination Appearance: Disheveled Consciousness: Alert (Wearing only a diaper) Orientation: Person, Place Motor Activity: Normal gait Speech: Other Language: Adequate Fund of Knowledge: Poor (Unable to evaluate) Attention and Concentration: Inadequate Memory: Impaired Mood: Irritable Affect: Blunt Thought Process & Associations: Disorganized Thought Content: Other Hallucination Type: None (Does not appear internally stimulated) Delusion Type: None Suicidal Ideation: No Suicidal Plan: No Suicidal Intention: No Homicidal Ideation: No Homicidal Plan: No Homicidal Intention: No Insight: Poor Judgment: Poor Assessment and Plan - Assessment (1) Dementia with behavioral disturbance Code(s): F03.91 - Unspecified dementia with behavioral disturbance Status: Acute - Plan Plan: Patient continues with irritability at times but no aggressive behavior. Patient to have bilateral hip x-rays as patient had recent fall, one-to-one sitter placed for falls precautions as patient is high risk for falls. We will continue to monitor mood and behavior. Continue current treatment. Discharge planning in progress. Justification for Continued Inpatient Stay: At risk for further decompensation if at lower level of care (1) Dementia with behavioral disturbance Qualifiers: Dementia type: unspecified type Qualified Code(s): F03.91 - Unspecified dementia with behavioral disturbance
--- NOTE | 2017-10-20 17:18 | XR ---
EXAM DATE: 10/20/2017 5:15 PM EDT AGE/SEX: 67 years / Male INDICATIONS: Right hip pain post fall. CLINICAL DATA: This is the patient's initial encounter. Patient reports that signs and symptoms have been present for 1 day and indicates a pain score of 4/10. MEDICAL/SURGICAL HISTORY: None. None. COMPARISON: No prior exams available for comparison. FINDINGS: Bony structures are intact and in normal alignment. Joints are intact without dislocation or signifi cant arthropathy. Osseous density is normal. Soft tissues are unremarkable. Vasectomy clips are not ed. CONCLUSION: No evidence of recent bony injury. Electronically signed by: Nikhil Wheeler MD 10/20/2017 5:16 PM EDT
--- NOTE | 2017-10-20 17:22 | XR ---
EXAM DATE: 10/20/2017 5:16 PM EDT AGE/SEX: 67 years / Male INDICATIONS: Left hip pain post fall. CLINICAL DATA: This is the patient's initial encounter. Patient reports that signs and symptoms have been present for 1 day and indicates a pain score of 3/10. MEDICAL/SURGICAL HISTORY: None. None. COMPARISON: [facility], XR HIP AP AND LAT, LEFT, 02/03/2017. . FINDINGS: There is no evidence of acute fracture. Bony mineralization is normal. Severe vascular calcification is present. CONCLUSION: There is no evidence of acute fracture. Electronically signed by: Manny Kim MD 10/20/2017 5:20 PM EDT
[2017-10-21] MEDS: Insulin NovoLOG Aspart Correctional Sugar Inj SQ SCH ×4 (08:57→20:21)
[2017-10-21] MEDS: QUEtiapine 25 MG Tablet PO SCH ×3 (08:57→20:23)
--- NOTE | 2017-10-21 14:34 | P.PNPSY ---
Subjective Chief Complaint: - Remarks: Patient seen for follow, chart reviewed. Discussion nursing staff reported the patient had receive ETO last evening as he is becoming loud, yelling and agitated and unable to be redirected. Patient was found lying hospital bed asleep was able to wake up to interact with interview. Patient states that he was upset yesterday at a doctor but does not explain why he stated he does not remember why. Patient denies any hip pain although reporting feeling sore from the fall. Patient denies any other physical complaints reports eating and drinking well the patient refused breakfast this morning due to being sleep. Patient denies any perceptional services or delusions at this time patient continues with baseline confusion secondary to dementia. Review of Systems All other systems reviewed negative except as stated in HPI Mental Status Examination Appearance: Disheveled Consciousness: Alert (Wearing only a diaper) Orientation: Person, Place Motor Activity: Normal gait Speech: Other Language: Adequate Fund of Knowledge: Poor (Unable to evaluate) Attention and Concentration: Inadequate Memory: Impaired Mood: Irritable Affect: Blunt Thought Process & Associations: Other (Chunky) Thought Content: Appropriate Hallucination Type: None (Does not appear internally stimulated) Delusion Type: None Suicidal Ideation: No Suicidal Plan: No Suicidal Intention: No Homicidal Ideation: No Homicidal Plan: No Homicidal Intention: No Insight: Poor Judgment: Poor Assessment and Plan - Assessment (1) Dementia with behavioral disturbance Code(s): F03.91 - Unspecified dementia with behavioral disturbance Status: Acute - Plan Plan: Patient continues to be noted with some irritability and continue with occasional episodes of yelling which patient mostly is redirectable. Will increase quetiapine to 25mg AM/12.5mg PM/25mg HS for mood stabilization. Patient continues with poor p.o. intake, we will continue to encourage patient to maintain adequate nutritional intake. Continue rest of medications. Continue to monitor mood and behavior. Discharge planning in progress. Justification for Continued Inpatient Stay: At risk for further decompensation if at lower level of care. (1) Dementia with behavioral disturbance Qualifiers: Dementia type: unspecified type Qualified Code(s): F03.91 - Unspecified dementia with behavioral disturbance
[2017-10-21] MEDS: levETIRAcetam 500 MG Tablet PO SCH (16:38)
[2017-10-22] MEDS: Insulin NovoLOG Aspart Correctional Sugar Inj SQ SCH ×3 (08:45→20:02)
[2017-10-22] MEDS: QUEtiapine 25 MG Tablet PO SCH ×3 (08:50→20:59)
[2017-10-22] MEDS: levETIRAcetam 500 MG Tablet PO SCH (15:30)
--- NOTE | 2017-10-22 15:32 | P.PNPSY ---
Subjective Chief Complaint: - Remarks: Patient seen for follow, chart reviewed. Discussion nursing staff reported the patient did not eat breakfast or lunch, ate some dinner last evening but did not receive any ETO's yesterday or today. Patient was found lying hospital bed noted be somewhat irritable yelling at times when noted to be frustrated. Patient was encouraged to increase nutritional intake and states that he will eat later on today. Patient continued with some irritability but compliant with medications with encouragement. Patient continues to be alert and oriented only to person. Review of Systems All other systems reviewed negative except as stated in HPI Mental Status Examination Appearance: Disheveled Consciousness: Alert (Wearing only a diaper) Orientation: Person, Place Motor Activity: Normal gait Speech: Other Language: Adequate Fund of Knowledge: Poor (Unable to evaluate) Attention and Concentration: Inadequate Memory: Impaired Mood: Irritable Affect: Irritable Thought Process & Associations: Other ([place]) Thought Content: Appropriate Hallucination Type: None (Does not appear internally stimulated) Delusion Type: None Suicidal Ideation: No Suicidal Plan: No Suicidal Intention: No Homicidal Ideation: No Homicidal Plan: No Homicidal Intention: No Insight: Poor Judgment: Poor Assessment and Plan - Assessment (1) Dementia with behavioral disturbance Code(s): F03.91 - Unspecified dementia with behavioral disturbance Status: Acute - Plan Plan: Patient continues with irritability but no aggressive behavior and not requiring ETO yesterday or today. Patient continues require encouragement to comply with medications. Patient continues to have poor p.o. intake, dietitian consult input appreciated. We will continue to encourage patient to maintain adequate p.o. intake and compliant with medications. Continue one-to-one observation for safety. We will order repeat labs. Discharge planning in progress. Justification for Continued Inpatient Stay: At risk for further decompensation if at lower level of care. (1) Dementia with behavioral disturbance Qualifiers: Dementia type: unspecified type Qualified Code(s): F03.91 - Unspecified dementia with behavioral disturbance
[2017-10-22] MEDS: Gabapentin 400 MG Capsule PO SCH (20:59)
[2017-10-23] MEDS: levETIRAcetam 500 MG Tablet PO SCH ×2 (03:53→12:15)
[2017-10-23] MEDS: Insulin NovoLOG Aspart Correctional Sugar Inj SQ SCH ×6 (03:53→20:03)
[2017-10-23] MEDS ORDERED: Haloperidol Inj 5 MG/ML Ampul ONE (03:58)
[2017-10-23] MEDS ORDERED: Haloperidol Inj 5 MG/ML Ampul IM SCH (04:00)
[2017-10-23 08:37] LABS: Baso # (Auto) 0.1 th/mm3 (0.0-0.2); Baso % (Auto) 1.3 % (0.0-2.0); Eos # (Auto) 0.2 th/mm3 (0.0-0.4); Eos % (Auto) 3.4 % (0.0-4.0); Hematocrit 40.6 % (39.0-51.0); Hemoglobin 13.5 gm/dL (13.0-17.0); Lymph # (Auto) 1.1 th/mm3 (1.0-4.8); Lymph % (Auto) 20.5 % (9.0-44.0); Mean Corpuscular HGB Conc 33.2 % (32.0-36.0); Mean Corpuscular Hemoglobin 26.1 pg (27.0-34.0); Mean Corpuscular Volume 78.6 fL (80.0-100.0); Mean Platelet Volume 9.6 fL (7.0-11.0); Mono # (Auto) 0.8 th/mm3 (0.0-0.9); Mono % (Auto) 14.7 % (0.0-8.0); Neut # (Auto) 3.2 th/mm3 (1.8-7.7); Neut % (Auto) 60.1 % (16.0-70.0); Platelet Count 183 th/mm3 (150-450); Red Blood Count 5.17 mil/mm3 (4.50-5.90); Red Cell Distribution Width 15.6 % (11.6-17.2); White Blood Count 5.3 th/mm3 (4.0-11.0)
[2017-10-23 08:56] LABS: Alanine Aminotransferase 21 U/L (12-78); Albumin 3.5 g/dL (3.4-5.0); Anion Gap 6 meq/L (5-15); Aspartate Aminotransferase 38 U/L (15-37); Blood Urea Nitrogen 12 mg/dL (7-18); Calcium 9.4 mg/dL (8.5-10.1); Carbon Dioxide 27.7 meq/L (21.0-32.0); Chloride 108 meq/L (98-107); Glomerular Filtration Rate 51 mL/min (>89); Glucose,Random 107 mg/dL (74-106); Sodium 142 meq/L (136-145)
[2017-10-23 08:57] LABS: Alkaline Phosphatase 72 U/L (45-117); Total Protein 7.3 g/dL (6.4-8.2)
[2017-10-23 09:07] LABS: Potassium 4.7 meq/L (3.5-5.1)
[2017-10-23] MEDS: QUEtiapine 25 MG Tablet PO SCH ×3 (09:39→20:20)
[2017-10-23] MEDS: Gabapentin 400 MG Capsule PO SCH ×2 (09:40→20:20)
--- NOTE | 2017-10-23 16:54 | P.DIET ---
Nutritional Evaluation Type of nutrition evaluation: follow-up Nutrition screening: [facility] [place] Screening comments: 10/17 [facility] [place] Malnutrition Subjective Barriers to Nutrition: Refuses to eat at times Oral Diet Tolerance Assessment Indicates: Chewing problems Subjective Comments: Pt sleeping when visited. ABIMAEL Blevins reports pt drank 4-Glucerna Shakes today. Pt needs assistance w/tray set-up and needs encouragement to have po intake. ABIMAEL Blevins reports pt has extended mastication; pt is edentulous. Objective - Diagnosis Dementia with Behavioral Disturbance - Objective [place] body weight: 154 kg (used HT from prev adm 10 days ago) % IBW: 129 Body Weight Used for Calculations: IBW (70kg) Energy Needs - Lower Range (kCal/kg): 25 Energy Needs - Upper Range (kCal/kg): 30 Lower Limit kCal/kg (kCals): 1,750 Upper Limit kCal/kg (kCals): 2,100 Lower Limit Protein Factor (Grams per Kg): 1.5 Upper Limit Protein Factor (Grams per Kg): 1.8 Lower Protein Needs (Protein): 105 Upper Protein Needs (Protein): 126 Fluid Factor (ml/kg): 30 Estimated Fluid Needs (ml): 2,100 Dietitian Reviewed in Medical Record: Current diet, Curent medications, Intake & Output, Labs, Medical history Diet Order: Regular Oral Diet Intake Amount: Poor <50% Objective Comments: PMH includes, CAD s/p CABG x 3, ID, CVA, HTN, HLD, DM, Gastric Bypass Surgery, Crohn's Disease, anxiety, depression, dementia, Triana's Esophagus Meds include: Lipitor, Keppra, Procardia, Seroquel, Novolog Labs include: Creatinine 1.39, estGFR 51, Glucose 107, Hgb A1C 6.1 -BM Feeding - Current PO Supplement Current Supplement: Glucerna Shake Current kCals Provided by Supplement: 220 Current Protein Provided by Supplement: 10 Supplement Comments: Pt receiving 6 Glucerna shakes/day as he did last admission Assessment Assessment: Pt continues at nutritional risk r/t diagnosis and poor po intake. Pt continues w/poor po. Rec texture downgrade to [facility] Soft w/ground meats and extra gravy r/ t pt is edentulous and has difficulty chewing w/extended mastication. Pt w/a h/ o Triana's Esophagus and may benefit from an ST eval. Continue Glucerna Shakes 2 per meal. Pt needs assistance w/meal tray set-up and encouragement to have po intake. Should a CHO-controlled diet be needed, then Rec 1999 ADA. Labs reviewed. A current wt is needed. Dietitian following. Recommendations: 1.Rec texture downgrade to [facility] Soft w/ground meats and extra gravy 2. Pt w/a h/o Triana's Esophagus and may benefit from an ST eval 3. Continue Glucerna Shakes 2 per meal 4. Pt needs assistance w/meal tray set-up and encouragement to have po intake 5. Should a CHO-controlled diet be needed, then Rec 1999 ADA 6. A current wt is needed 7. Dietitian following Dietitian to Monitor: Lab values, Renal labs, Supplement acceptance, Intake & Output, Diet tolerance, Weight change, PO Intake, Medical course
--- NOTE | 2017-10-23 17:33 | XR ---
EXAM DATE: 10/23/2017 5:28 PM EDT AGE/SEX: 67 years / Male INDICATIONS: Right hip pain after fall. CLINICAL DATA: This is the patient's initial encounter. Patient reports that signs and symptoms have been present for 1 day and indicates a pain score of Nonresponsive. MEDICAL/SURGICAL HISTORY: Non-responsive. Non-responsive. COMPARISON: [facility] [place], HIP RIGHT 2V, 10/20/2017. . FINDINGS: Bony structures are intact and in normal alignment. Joints are intact without dislocation. There is some mild degenerative arthritis which is stable compared to the prior study. Osseous density is nor mal. Soft tissues are unremarkable. No radiopaque foreign bodies seen. The bony structures of the pelvis are grossly intact. CONCLUSION: No acute fracture or joint dislocation. Electronically signed by: Vitaliy Blanton MD 10/23/2017 5:31 PM EDT
--- NOTE | 2017-10-23 17:34 | XR ---
EXAM DATE: 10/23/2017 5:29 PM EDT AGE/SEX: 67 years / Male INDICATIONS: Lower back pain after fall. CLINICAL DATA: This is the patient's initial encounter. Patient reports that signs and symptoms have been present for 1 day and indicates a pain score of 10/10. MEDICAL/SURGICAL HISTORY: Non-responsive. Non-responsive. COMPARISON: No prior exams available for comparison. FINDINGS: There is evidence of some compression along the superior endplates of T12 and L1. There are some dege nerative changes of the lumbar spine. There is no evidence of spondylolisthesis. There is good alignm ent of the SI joints. There is some mild disc space narrowing L5-S1. CONCLUSION: 1. There is some compression along the superior endplates of T12 and L1. The age of the compression fracture injuries are unknown. If clinically indicated, an MRI of the lumbar spine could be performed for further evaluation. 2. Mild degenerative changes involving the lumbar spine with disc space narrowing at L5-S1. Electronically signed by: Vitaliy Blanton MD 10/23/2017 5:33 PM EDT
--- NOTE | 2017-10-23 17:34 | XR ---
EXAM DATE: 10/23/2017 5:30 PM EDT AGE/SEX: 67 years / Male INDICATIONS: Left hip pain after fall. CLINICAL DATA: This is the patient's initial encounter. Patient reports that signs and symptoms have been present for 1 day and indicates a pain score of Nonresponsive. MEDICAL/SURGICAL HISTORY: Non-responsive. Non-responsive. COMPARISON: [facility], HIP LEFT AP ONLY 1V, 10/20/2017. . FINDINGS: Bony structures are intact and in normal alignment. Joints are intact without dislocation. Mild join t space narrowing and osteophyte formation. Prominent femoral artery calcifications. Osseous density is normal. Soft tissues are unremarkable. No radiopaque foreign bodies seen. CONCLUSION: 1. No acute fracture or dislocation. 2. Mild degenerative osteoarthritis. Electronically signed by: Ned Martínez MD 10/23/2017 5:32 PM EDT
--- NOTE | 2017-10-23 18:08 | P.PNPSY ---
Subjective Chief Complaint: - Remarks: Patient seen for follow-up, chart reviewed. Discussion with nursing staff reported that the patient receives ETO at 4 AM less evening due to agitation. Patient ate breakfast this morning. Patient was found lying hospital bed noted B irritable, refusing to engage further in interview. Patient state he is feeling "fine", when reminded of the importance of nutritional intake patient began to become more upset stating that he will do so. Patient denies any physical complaints at this time, denies any perceptional service of delusions but continues with baseline confusion. Review of Systems All other systems reviewed negative except as stated in HPI Mental Status Examination Appearance: Disheveled Consciousness: Alert (Wearing only a diaper) Orientation: Person, Place Motor Activity: Normal gait Speech: Other Language: Adequate Fund of Knowledge: Poor (Unable to evaluate) Attention and Concentration: Inadequate Memory: Impaired Mood: Irritable Affect: Irritable Thought Process & Associations: Other ([place]) Thought Content: Appropriate Hallucination Type: None (Does not appear internally stimulated) Delusion Type: None Suicidal Ideation: No Suicidal Plan: No Suicidal Intention: No Homicidal Ideation: No Homicidal Plan: No Homicidal Intention: No Insight: Poor Judgment: Poor Assessment and Plan - Assessment (1) Dementia with behavioral disturbance Code(s): F03.91 - Unspecified dementia with behavioral disturbance Status: Acute - Plan Plan: Patient continued with some irritability, had receive ETO last evening due to agitation. We will titrate quetiapine to 25 mg p.o. 3 times daily for mood stabilization. We will continue rest of medications. We will continue to monitor mood and behavior. Patient to continue one-to-one observation for safety. Discharge planning in progress. Justification for Continued Inpatient Stay: At risk for further decompensation if at lower level of care (1) Dementia with behavioral disturbance Qualifiers: Dementia type: unspecified type Qualified Code(s): F03.91 - Unspecified dementia with behavioral disturbance
[2017-10-24] MEDS: levETIRAcetam 500 MG Tablet PO SCH ×2 (00:35→14:20)
[2017-10-24] MEDS: Insulin NovoLOG Aspart Correctional Sugar Inj SQ SCH ×5 (07:06→20:01)
[2017-10-24] MEDS: Gabapentin 400 MG Capsule PO SCH ×2 (09:58→20:40)
[2017-10-24] MEDS: QUEtiapine 25 MG Tablet PO SCH ×3 (09:59→20:40)
--- NOTE | 2017-10-24 16:44 | P.PNPSY ---
Subjective Chief Complaint: - Remarks: Patient seen for follow, chart reviewed. Discussion with nursing staff reported the patient had a fall last evening which he was trying to sit down in a chair but there was no chair behind him. Lumbar x-rays showed possible compression fracture at T12-S1. Patient was found lying hospital chair noted B somnolent and participating superficially with interview stating he is feeling "good", denying any physical pain at this time denying any hip pain any weakness of lower extremities and was encouraged to increase p.o. intake which he agreed. Patient continues on one-to-one observation for fall precautions. Review of Systems All other systems reviewed negative except as stated in HPI Mental Status Examination Appearance: Disheveled Consciousness: Alert (Wearing only a diaper) Orientation: Person, Place Motor Activity: Normal gait Speech: Other Language: Adequate Fund of Knowledge: Poor (Unable to evaluate) Attention and Concentration: Inadequate Memory: Impaired Mood: Irritable (Less so today) Affect: Blunt Thought Process & Associations: Other ([place]) Thought Content: Appropriate Hallucination Type: None (Does not appear internally stimulated) Delusion Type: None Suicidal Ideation: No Suicidal Plan: No Suicidal Intention: No Homicidal Ideation: No Homicidal Plan: No Homicidal Intention: No Insight: Poor Judgment: Poor Assessment and Plan - Assessment (1) Dementia with behavioral disturbance Code(s): F03.91 - Unspecified dementia with behavioral disturbance Status: Acute - Plan Plan: Patient this time continues with baseline confusion secondary to neurocognitive deficits. Patient noted with less irritability this morning but did receive ETO last night due to agitation. Lumbar x-rays show possible compression fractures of T12 and S1 which that consult to hospitalist was requested. Patient not to get out of bed until evaluation. We will continue to monitor mood and behavior. We will continue current treatment. We will await recommendations by prior medical team. Discharge planning in progress. Justification for Continued Inpatient Stay: At risk for further decompensation if at lower level of care (1) Dementia with behavioral disturbance Qualifiers: Dementia type: unspecified type Qualified Code(s): F03.91 - Unspecified dementia with behavioral disturbance
--- NOTE | 2017-10-24 17:27 | P.PN ---
Subjective Interval history: Patient is a 67-year-old male who presented to the emergency department under Arellano act that was started by a clinical psychologist at his nursing facility which was [facility]. Per the Arellano act the patient had been aggressive and hitting staff at the facility. He has an extensive medical history including hypertension, hyperlipidemia, cerebrovascular accident, coronary artery disease, COPD, asthma, history of MO, diabetes mellitus, dementia, Triana's esophagus, anxiety, and depression patient recently underwent a ROLLER REPAIRER shunt in September 05, 2016. He has had issues with multiple syncopal events in the past and had a small punctate hemorrhages and a subarachnoid hemorrhage related to trauma from syncope. The patient also has dementia. Hospitalist service has been recalled consulted to evaluate findings of recent x -ray post fall. Patient has suffered multiple falls due to history of CVA and frequent syncopal events. Pt most recently fell 10/23 when he was trying to sit down in a chair but there was no chair behind him. X-ray of the lumbar spine done 10/23/17 showed compression along the superior endplates of T12 and L1 age unknown. Patient is seen sitting up in chair eating dinner. Denies any current back pain or difficulty moving. Denies any shortness of breath or difficulty breathing. Denies any injury to the spine recently. He does report that he fell off of a roof when he lived in [place] and broke his back at that time. He does not remember exactly when it happened but it was many years ago. No surgical intervention was needed and the fracture healed on its own. He denies any residual back pain from that event. Attempt was made to contact his , Shannon Gtz at [phone], for corroboration of his history but there was no answer. Physical Exam Vital signs: Vital Signs 10/23/17 17:39 10/23/17 18:00 10/24/17 05:40 Temperature 98.3 F 97.9 F 97.8 F Pulse Rate 87 84 81 Respiratory Rate 18 18 16 Blood Pressure 145/72 H 116/59 L 135/71 Pulse Oximetry 95 95 94 L Intake & Output 10/23/17 10/24/17 10/24/17 18:59 06:59 18:59 Intake Total 1919 / 192 0 / 0 Balance 1919 / 1919 0 / 0 Intake: Oral 1919 0 / 0 Other: # Voids 0 # Urine Diapers 2 Narrative: GENERAL: Awake and alert. SKIN: Warm and dry. CARDIOVASCULAR: Regular rate and rhythm. RESPIRATORY: No accessory muscle use. Clear to auscultation. Breath sounds equal bilaterally. GASTROINTESTINAL: Abdomen soft, non-tender, nondistended. MUSCULOSKELETAL: No tenderness along spine or throughout back. Appears to be at baseline ROM of upper extremities. No obvious deformities. Results - Labs CBC & Chem 7: 10/23/17 07:37 10/23/17 07:37 Laboratory Results - last 24 hr 10/24/17 10/24/17 10/24/17 09:24 12:23 16:51 POC Glucose 80 97 119 H - Imaging Impressions Hip X-Ray 10/23/17 00:00 CONCLUSION: No acute fracture or joint dislocation. Hip X-Ray 10/23/17 00:00 CONCLUSION: 1. No acute fracture or dislocation. 2. Mild degenerative osteoarthritis. Lumbar Spine X-Ray 10/23/17 00:00 CONCLUSION: 1. There is some compression along the superior endplates of T12 and L1. The age of the compression fracture injuries are unknown. If clinically indicated, an MRI of the lumbar spine could be performed for further evaluation. 2. Mild degenerative changes involving the lumbar spine with disc space narrowing at L5-S1. Assessment and Plan - Plan Patient is a 67-year-old male who presented to the emergency department under Arellano act that was started by a clinical psychologist at his nursing facility which was [facility]. Medical history includes hypertension, hyperlipidemia, cerebrovascular accident, coronary artery disease, COPD, asthma, history of MO, diabetes mellitus, dementia, Triana's esophagus, anxiety, and depression patient recently underwent a ROLLER REPAIRER shunt in September 05, 2016. He has had issues with multiple syncopal events in the past and had a small punctate hemorrhages and a subarachnoid hemorrhage related to trauma from syncope. The patient also has dementia. Pt fell 10/23 when he was trying to sit down in a chair but there was no chair behind him. X-ray of the lumbar spine done 10/23/17 showed compression along the superior endplates of T12 and L1 age unknown. Dementia -managed by psychiatry Spinal fracture -compression at T12-S1. -Physical exam does not support recent injury. Patient reports back injury many years ago which is likely what is seen on imaging. -Recommend one-on-one sitter to prevent falls. Frequent falls -Order for PT eval -Patient to not be out of bed without assist. Discussed with: Nurse, patient, sitter and Dr. Yeung Thank you for this consult. We look forward to assisting you with the medical management of this patient.
[2017-10-24] MEDS ORDERED: Haloperidol Inj 5 MG/ML Ampul ONE (21:29)
[2017-10-24] MEDS ORDERED: Haloperidol Inj 5 MG/ML Ampul IM ONE (22:00)
[2017-10-25] MEDS: Insulin NovoLOG Aspart Correctional Sugar Inj SQ SCH ×3 (03:18→11:51)
[2017-10-25] MEDS: levETIRAcetam 500 MG Tablet PO SCH (03:18)
[2017-10-25] MEDS: Gabapentin 400 MG Capsule PO SCH ×2 (11:56→20:43)
[2017-10-25] MEDS: QUEtiapine 25 MG Tablet PO SCH ×2 (12:01→20:43)
--- NOTE | 2017-10-25 13:07 | P.PNPSY ---
Subjective Chief Complaint: - Remarks: Reviewed electronic medical records and discussed case with staff. Follow-up was conducted in patient's room. Patient was found sitting in a chair eating his lunch. He reports that he slept well last night and that he has a good appetite today. Nurse reports is an improvement as he has been only drinking Ensure. There is some concern over his level of sedation this morning due to ETO's that were given last night. However, he does seem to be well rested and calmer today, per staff. Mental Status Examination Appearance: Disheveled Consciousness: Alert (Wearing only a diaper) Orientation: Person, Place Motor Activity: Normal gait Speech: Other Language: Adequate Fund of Knowledge: Poor (Unable to evaluate) Attention and Concentration: Inadequate Memory: Impaired Mood: Irritable Affect: Irritable Thought Process & Associations: Other ([place]) Thought Content: Appropriate Hallucination Type: None (Does not appear internally stimulated) Delusion Type: None Suicidal Ideation: No Suicidal Plan: No Suicidal Intention: No Homicidal Ideation: No Homicidal Plan: No Homicidal Intention: No Insight: Poor Judgment: Poor Assessment and Plan - Assessment (1) Dementia with behavioral disturbance Code(s): F03.91 - Unspecified dementia with behavioral disturbance Status: Acute - Plan Plan: Patient will be reevaluated Friday by the attending psychiatrist. Continue with current treatment plan. Justification for Continued Inpatient Stay: Moving this patient to a less restrictive environment would likely result in decompensation. (1) Dementia with behavioral disturbance Qualifiers: Dementia type: unspecified type Qualified Code(s): F03.91 - Unspecified dementia with behavioral disturbance
[2017-10-26] MEDS: Insulin NovoLOG Aspart Correctional Sugar Inj SQ SCH ×6 (06:45→22:13)
[2017-10-26] MEDS: levETIRAcetam 500 MG Tablet PO SCH ×3 (06:45→22:12)
[2017-10-26] MEDS: Gabapentin 400 MG Capsule PO SCH ×2 (11:00→22:12)
[2017-10-26] MEDS: QUEtiapine 25 MG Tablet PO SCH ×2 (11:00→22:12)
--- NOTE | 2017-10-26 19:20 | P.PNPSY ---
Subjective Chief Complaint: - Remarks: Reviewed electronic medical records and discussed case with staff. Follow-up was conducted in patient's room. Is found lying in his bed with his eyes closed but awake and alert. He reports that the food is "very good", and states that he has slept well. Patient is appropriate throughout the conversation. I find him to be pleasant. There is no indication of internal stimulation. His mood was good and his affect is euthymic. Mental Status Examination Appearance: Disheveled Consciousness: Alert (Wearing only a diaper) Orientation: Person, Place Motor Activity: Normal gait Speech: Other Language: Adequate Fund of Knowledge: Poor (Unable to evaluate) Attention and Concentration: Inadequate Memory: Impaired Mood: Irritable Affect: Irritable Thought Process & Associations: Other ([place]) Thought Content: Appropriate Hallucination Type: None (Does not appear internally stimulated) Delusion Type: None Suicidal Ideation: No Suicidal Plan: No Suicidal Intention: No Homicidal Ideation: No Homicidal Plan: No Homicidal Intention: No Insight: Poor Judgment: Poor Assessment and Plan - Assessment (1) Dementia with behavioral disturbance Code(s): F03.91 - Unspecified dementia with behavioral disturbance Status: Acute - Plan Plan: Patient will be reevaluated tomorrow by the attending psychiatrist. Continue with current treatment plan. Justification for Continued Inpatient Stay: Moving this patient to a less restrictive environment would likely result in decompensation. (1) Dementia with behavioral disturbance Qualifiers: Dementia type: unspecified type Qualified Code(s): F03.91 - Unspecified dementia with behavioral disturbance
[2017-10-27] MEDS: Insulin NovoLOG Aspart Correctional Sugar Inj SQ SCH ×6 (06:17→21:00)
[2017-10-27] MEDS: QUEtiapine 25 MG Tablet PO SCH ×5 (07:49→20:55)
[2017-10-27] MEDS: levETIRAcetam 500 MG Tablet PO SCH ×2 (07:50→15:12)
[2017-10-27] MEDS: Gabapentin 400 MG Capsule PO SCH ×2 (09:14→20:54)
--- NOTE | 2017-10-27 13:16 | XR ---
EXAM DATE: 10/27/2017 1:13 PM EDT AGE/SEX: 67 years / Male INDICATIONS: Fell today. CLINICAL DATA: This is the patient's initial encounter. Patient reports that signs and symptoms have been present for 3 days and indicates a pain score of Nonresponsive. MEDICAL/SURGICAL HISTORY: . dementia Non-responsive. COMPARISON: [facility] [place], HIP LEFT 2V, 10/23/2017. . FINDINGS: Bony structures are intact and in normal alignment. There is joint space narrowing with periarticular sclerotic change and osteophyte production. No subchondral geode formation or femoral head flattenin g. No radiopaque foreign body. No fracture or dislocation. Atherosclerotic calcifications. CONCLUSION: No acute abnormality. Moderate osteoarthritis. Electronically signed by: Toni Vail MD 10/27/2017 1:14 PM EDT
--- NOTE | 2017-10-27 13:25 | XR ---
EXAM DATE: 10/27/2017 1:19 PM EDT AGE/SEX: 67 years / Male INDICATIONS: Fell today. CLINICAL DATA: This is the patient's initial encounter. Patient reports that signs and symptoms have been present for 4 - 6 days and indicates a pain score of Nonresponsive. MEDICAL/SURGICAL HISTORY: . dementia Non-responsive. COMPARISON: [place], HIP RIGHT W AP PELVIS 2V, 10/23/2017. . FINDINGS: Views of the right hip demonstrates mild osteoarthritis. Femoral neck intact. No fracture seen. Vascu lar calcifications CONCLUSION: Mild osteoarthritis without fracture. Electronically signed by: Boyd Yoon MD 10/27/2017 1:23 PM EDT
--- NOTE | 2017-10-27 13:49 | XR ---
EXAM DATE: 10/27/2017 1:23 PM EDT AGE/SEX: 67 years / Male INDICATIONS: Fell today. CLINICAL DATA: This is the patient's initial encounter. Patient reports that signs and symptoms have been present for 4 - 6 days and indicates a pain score of Nonresponsive. MEDICAL/SURGICAL HISTORY: Non-responsive. Non-responsive. COMPARISON: [facility] [place], LUMBAR SPINE [facility] AP&LAT, 10/23/2017. . FINDINGS: 3 images of the lumbar spine show superior endplate compression involving T12 and L1. No linear trabe cular or cortical lucency observed. No retropulsion. Appearance is unchanged. Remaining vertebral bod y heights are maintained. Disc space narrowing without osteophyte production at L5-S1. Mild anterior osteophyte seen at L4-L5. Alignment is preserved. Atherosclerotic calcifications scattered throughout the aorta. Unremarkable bowel gas pattern. CONCLUSION: Age indeterminate compression deformities involving T12 and L1. These are stable. Electronically signed by: Toni Vail MD 10/27/2017 1:47 PM EDT
--- NOTE | 2017-10-27 16:05 | P.PNPSY ---
Subjective Chief Complaint: - Remarks: Patient seen for follow, chart reviewed. Discussion with nursing staff reported the patient with no episodes of agitation although some irritability but redirectable, had a fall earlier this morning as he attempted to sit on the side of the bed and missed and was subsequently fell sitting; patient has a compliant with medications. Patient was found lying hospital bed after having had imaging done states he has having some mild discomfort of his right hip but denying any pain at this time. He states his mood has been "okay" denying any perceptional service of delusions. Patient continues to be confused at baseline. Patient reminded to have adequate p.o. intake which he agreed as well as nutritional intake. Patient noted be in good spirits today with no irritability during interview. Review of Systems All other systems reviewed negative except as stated in HPI Mental Status Examination Appearance: Disheveled Consciousness: Alert (Wearing only a diaper) Orientation: Person, Place Motor Activity: Normal gait Speech: Other Language: Adequate Fund of Knowledge: Poor (Unable to evaluate) Attention and Concentration: Inadequate Memory: Impaired Mood: Appropriate Affect: Appropriate Thought Process & Associations: Other ([place]) Thought Content: Appropriate Hallucination Type: None (Does not appear internally stimulated) Delusion Type: None Suicidal Ideation: No Suicidal Plan: No Suicidal Intention: No Homicidal Ideation: No Homicidal Plan: No Homicidal Intention: No Insight: Poor Judgment: Poor Assessment and Plan - Assessment (1) Dementia with behavioral disturbance Code(s): F03.91 - Unspecified dementia with behavioral disturbance Status: Acute - Plan Plan: Patient continues with disorientation and baseline confusion. Patient has not had any aggressive behavior although has some irritability but redirectable and not requiring ETO's recently. Patient continues on one-to-one observation for safety due to risk of falls. Patient had fall early this morning which x-ray imaging did not show any acute fracture and MRI of spine pending. We will continue current treatment. Continue to monitor mood and behavior. Discharge planning in progress. Justification for Continued Inpatient Stay: At risk for further decompensation if at lower level of care (1) Dementia with behavioral disturbance Qualifiers: Dementia type: unspecified type Qualified Code(s): F03.91 - Unspecified dementia with behavioral disturbance
--- NOTE | 2017-10-27 16:10 | MR ---
EXAM DATE: 10/27/2017 3:53 PM EDT AGE/SEX: 67 years / Male INDICATIONS: . Back pain due to fall. CLINICAL DATA: This is the patient's initial encounter. Patient reports that signs and symptoms have been present for 1 day and indicates a pain score of 4/10. MEDICAL/SURGICAL HISTORY: Chronic obstructive pulmonary disease. Stroke. Hypertension. Demen tia. CABG. Shunt. COMPARISON: No prior exams available for comparison. TECHNIQUE: Multiplanar, multisequence MRI of the thoracic spine was performed. FINDINGS: There is mild degenerative disc disease in the thoracic spine. No acute fracture or spondylolisthesis . No discrete disc protrusions. There is no significant canal or foraminal stenosis. CONCLUSION: 1. No acute fracture or significant compression deformity within the thoracic spine. Mild compressio n deformity of L1. See lumbar spine MRI report. Mild degenerative disc disease. No canal or significa nt foraminal stenosis. No discrete disc protrusions. Electronically signed by: Jose Porter MD 10/27/2017 4:09 PM EDT
--- NOTE | 2017-10-27 16:17 | MR ---
EXAM DATE: 10/27/2017 4:02 PM EDT AGE/SEX: 67 years / Male INDICATIONS: . Back pain due to fall. CLINICAL DATA: This is the patient's initial encounter. Patient reports that signs and symptoms have been present for 1 day and indicates a pain score of 4/10. MEDICAL/SURGICAL HISTORY: Stroke. Hypertension. Cardiovascular disease. COPD, Dementia. CAB G. Shunt. COMPARISON: No prior exams available for comparison. TECHNIQUE: Multiplanar, multisequence MRI examination of the cervical spine was performed without co ntrast. FINDINGS: At C2-3 there is no significant abnormality. At C3-4 there is posterior disc osteophyte complex and facet arthropathy with mild effacement of the thecal sac and mild bilateral foraminal stenosis. At C4-5 there is a posterior disc osteophyte complex effacing the thecal sac without significant cord compression. There is moderate left-sided foraminal stenosis. Right neural foramen patent. At C5-6 there is a central to right paracentral disc osteophyte complex with moderate AP canal stenos is and mild cord compression, especially in the right hemicord. Right neural foramen patent. Left-jodi ed foraminal stenosis. At C6-7 there is a posterior disc osteophyte complex effacing the thecal sac without cord compression . Moderate left foraminal stenosis. At C7-T1 there is no significant abnormality. CONCLUSION: 1. At C5-6 there is a broad-based central to right paracentral disc and osteophyte complex resulting in moderate AP canal stenosis and mild cord compression as above. 2. At C4-5 and C6-7 there is moderate left-sided foraminal stenosis from degenerative change. 3. No acute fracture or spondylolisthesis. Straightening of the normal cervical lordosis. Electronically signed by: Jose Porter MD 10/27/2017 4:16 PM EDT
--- NOTE | 2017-10-27 16:21 | MR ---
EXAM DATE: 10/27/2017 4:15 PM EDT AGE/SEX: 67 years / Male INDICATIONS: . Back pain due to fall. CLINICAL DATA: This is the patient's initial encounter. Patient reports that signs and symptoms have been present for 1 day and indicates a pain score of 4/10. MEDICAL/SURGICAL HISTORY: Stroke. Hypertension. Cardiovascular disease. Dementia. CABG. Linda nt. COMPARISON: No prior exams available for comparison. TECHNIQUE: Multiplanar, multisequence MRI of the lumbar spine was performed without contrast. Patie nt was scanned in a sitting position; neutral, flexion, and extension scans were performed in the sa gittal plane. FINDINGS: There is an old compression deformity of L1 predominantly through superior endplate. There is no marybeth ow edema to suggest an acute fracture of the lumbar spine. There are no discrete disc protrusions within the lumbar spine. There are degenerative changes of fac et arthropathy. Minimal neural foraminal encroachment bilaterally between L3 and S1. Conus medullaris intact. Minimal retrolisthesis of L5 on S1, degenerative. Multiple large right renal cysts. CONCLUSION: 1. No acute fracture of the lumbar spine. Old compression deformity of L1 without retropulsion. 2. No discrete disc protrusions. No significant canal or foraminal stenosis. Conus medullaris intact . Normal alignment except for minimal retrolisthesis at L5-S1, degenerative. Electronically signed by: Jose Porter MD 10/27/2017 4:19 PM EDT
[2017-10-28] MEDS: levETIRAcetam 500 MG Tablet PO SCH ×3 (02:33→22:59)
[2017-10-28] MEDS: Insulin NovoLOG Aspart Correctional Sugar Inj SQ SCH ×5 (03:00→20:38)
--- NOTE | 2017-10-28 08:54 | P.PNPSY ---
Subjective Chief Complaint: - Remarks: Patient seen for follow, chart reviewed. Discussion nursing staff reported the patient with good behavioral control, no ETO's required and compliant with medication. Patient was found sitting in hospital bed eating breakfast noted to be good spirits stating he is feeling "good". Patient denies any hip or lower back pain and states that he had a good evening last evening and rested well. Patient continue with baseline confusion. Patient denies any perceptional disturbances or delusions at this time. Review of Systems All other systems reviewed negative except as stated in HPI Mental Status Examination Appearance: Disheveled Consciousness: Alert (Wearing only a diaper) Orientation: Person, Place Motor Activity: Normal gait Speech: Other Language: Adequate Fund of Knowledge: Poor (Unable to evaluate) Attention and Concentration: Inadequate Memory: Impaired Mood: Good Affect: Appropriate Thought Process & Associations: Other ([place]) Thought Content: Appropriate Hallucination Type: None (Does not appear internally stimulated) Delusion Type: None Suicidal Ideation: No Suicidal Plan: No Suicidal Intention: No Homicidal Ideation: No Homicidal Plan: No Homicidal Intention: No Insight: Poor Judgment: Poor Assessment and Plan - Assessment (1) Dementia with behavioral disturbance Code(s): F03.91 - Unspecified dementia with behavioral disturbance Status: Acute - Plan Plan: Patient noted to have improvement of behavior as well as decrease in irritability and compliant with staff and treatment. Recent imaging showed no acute fracture. We will continue to monitor mood and behavior. Patient to continue one-to-one observation for fall risk. Continue to encourage patient to maintain adequate nutritional intake. Discharge planning in progress. Justification for Continued Inpatient Stay: At risk for further decompensation if at lower level of care (1) Dementia with behavioral disturbance Qualifiers: Dementia type: unspecified type Qualified Code(s): F03.91 - Unspecified dementia with behavioral disturbance
[2017-10-28] MEDS: Gabapentin 400 MG Capsule PO SCH ×2 (09:41→20:38)
[2017-10-28] MEDS: QUEtiapine 25 MG Tablet PO SCH ×4 (09:42→20:38)
[2017-10-29] MEDS: Insulin NovoLOG Aspart Correctional Sugar Inj SQ SCH ×5 (03:20→23:07)
[2017-10-29] MEDS: Gabapentin 400 MG Capsule PO SCH ×2 (08:27→20:21)
[2017-10-29] MEDS: QUEtiapine 25 MG Tablet PO SCH ×3 (08:28→20:21)
--- NOTE | 2017-10-29 14:13 | P.DIET ---
Nutritional Evaluation Type of nutrition evaluation: follow-up Nutrition screening: [facility] Screening comments: 10/17 [facility] Malnutrition Subjective Barriers to Nutrition: Refuses to eat at times Oral Diet Tolerance Assessment Indicates: Chewing problems Subjective Comments: Pt visited after lunch today; sitter at bedside. Pt smiling and talking w/his eyes closed. [facility] and he responds w/"No" . Pt adds that his teeth were pulled "some time ago" and his gums are "tough". Sitter reports pt drinks some of the Glucerna Shakes at meals. Pt says he is not used to eating 3-meals a day and that he usually eats just one meal per day. Encouraged pt to eat at least some of his meals and to drink the Glucerna Shakes for extra nutrition. Objective - Diagnosis Dementia with Behavioral Disturbance - Objective [place] body weight: 154 kg (used HT from prev adm 10 days ago) % IBW: 129 Body Weight Used for Calculations: IBW (70kg) Energy Needs - Lower Range (kCal/kg): 25 Energy Needs - Upper Range (kCal/kg): 30 Lower Limit kCal/kg (kCals): 1,750 Upper Limit kCal/kg (kCals): 2,100 Lower Limit Protein Factor (Grams per Kg): 1.5 Upper Limit Protein Factor (Grams per Kg): 1.8 Lower Protein Needs (Protein): 105 Upper Protein Needs (Protein): 126 Fluid Factor (ml/kg): 30 Estimated Fluid Needs (ml): 2,100 Dietitian Reviewed in Medical Record: Current diet, Curent medications, Intake & Output, Labs, Medical history Diet Order: Regular Oral Diet Intake Amount: Poor <50% Objective Comments: PMH includes, CAD s/p CABG x 3, [place], CVA, HTN, HLD, DM, Gastric Bypass Surgery, Crohn's Disease, anxiety, depression, dementia, Triana's Esophagus Meds include: Lipitor, Keppra, Procardia, Seroquel, Novolog Hgb A1C 6.1, Accucheck 112 Feeding - Current PO Supplement Current Supplement: Glucerna Shake Current Frequency of Supplement: Daily Current kCals Provided by Supplement: 220 Current Protein Provided by Supplement: 10 Supplement Comments: Pt receiving 6 Glucerna shakes/day as he did last admission Assessment Assessment: Pt continues at nutritional risk r/t diagnosis and poor po intake. Pt continues w/poor po. Rec texture downgrade to Soft w/extra gravy r/t pt is edentulous and has difficulty chewing w/extended mastication per Nursing; pt declines a [facility] Soft diet. Pt w/a h/o Triana's Esophagus and may benefit from an ST eval. Continue Glucerna Shakes 2 per meal. Pt needs assistance w/meal tray set-up and encouragement to have po intake. Should a CHO-controlled diet be needed, then Rec 1999 ADA. Labs reviewed. Wt changes noted Dietitian following. Recommendations: 1.Rec texture downgrade to Soft w/extra gravy r/t pt is edentulous and has difficulty chewing w/extended mastication per Nursing; pt declines a [facility] Soft diet 2. Pt w/a h/o Triana's Esophagus and may benefit from an ST eval 3.Continue Glucerna Shakes 2 per meal 4.Pt needs assistance w/meal tray set-up and encouragement to have po intake 5.Should a CHO-controlled diet be needed, then Rec 1999 ADA 6.Dietitian following Dietitian to Monitor: Lab values, Renal labs, Supplement acceptance, Intake & Output, Diet tolerance, Weight change, PO Intake, Medical course
[2017-10-29] MEDS: levETIRAcetam 500 MG Tablet PO SCH ×2 (15:54→23:08)
--- NOTE | 2017-10-29 17:48 | P.PNPSY ---
Subjective Chief Complaint: - Remarks: Patient seen for follow, chart reviewed. Discussion nursing staff reported the patient has been pleasant and cooperative with staff, no periods of agitation or irritability noted recently. Patient was found sitting in hospital bed eating lunch noted B, cooperative. Patient noted with brighter affect, stating that he is feeling "good" denying any physical complaints at this time states that he has been eating well. Patient denying any perceptional services or delusions but continues with baseline confusion secondary to neurocognitive deficits. Review of Systems All other systems reviewed negative except as stated in HPI Mental Status Examination Appearance: Appropriate Consciousness: Alert (Wearing only a diaper) Orientation: Person, Place Motor Activity: Normal gait Speech: Other Language: Adequate Fund of Knowledge: Poor (Unable to evaluate) Attention and Concentration: Inadequate Memory: Impaired Mood: Good Affect: Appropriate Thought Process & Associations: Other ([place]) Thought Content: Appropriate Hallucination Type: None (Does not appear internally stimulated) Delusion Type: None Suicidal Ideation: No Suicidal Plan: No Suicidal Intention: No Homicidal Ideation: No Homicidal Plan: No Homicidal Intention: No Insight: Poor Judgment: Poor Assessment and Plan - Assessment (1) Dementia with behavioral disturbance Code(s): F03.91 - Unspecified dementia with behavioral disturbance Status: Acute - Plan Plan: Patient continues with adequate behavioral control, no episodes of irritability or agitation. Patient pleasant and cooperative with staff today with brighter affect. We will continue current treatment. Patient improving and nutritional intake. We will continue to monitor mood and behavior. Discharge planning a progress. Justification for Continued Inpatient Stay: At risk for further decompensation if at lower level of care (1) Dementia with behavioral disturbance Qualifiers: Dementia type: unspecified type Qualified Code(s): F03.91 - Unspecified dementia with behavioral disturbance
[2017-10-30] MEDS: Insulin NovoLOG Aspart Correctional Sugar Inj SQ SCH ×5 (03:12→19:59)
[2017-10-30] MEDS: QUEtiapine 25 MG Tablet PO SCH ×3 (09:02→20:46)
[2017-10-30] MEDS: Gabapentin 400 MG Capsule PO SCH ×2 (09:02→20:45)
[2017-10-30] MEDS: levETIRAcetam 500 MG Tablet PO SCH ×2 (10:55→22:11)
--- NOTE | 2017-10-30 15:01 | P.PNPSY ---
Subjective Chief Complaint: - Remarks: Patient seen for follow-up, chart reviewed. Discussion with nursing staff reported the patient with no behavioral disturbances, slept well last evening and compliant with medications. Patient was found lying hospital bed noted B, cooperative. Patient stated his mood has been "good" continues to feel unsteady when walking but states having assistance. Patient reports sleeping well, good appetite, no perceptual services or delusions. Patient continues with baseline confusion. Review of Systems All other systems reviewed negative except as stated in HPI Mental Status Examination Appearance: Appropriate Consciousness: Alert (Wearing only a diaper) Orientation: Person, Place Motor Activity: Normal gait Speech: Other Language: Adequate Fund of Knowledge: Poor (Unable to evaluate) Attention and Concentration: Inadequate Memory: Impaired Mood: Good Affect: Appropriate Thought Process & Associations: Other ([place]) Thought Content: Appropriate Hallucination Type: None (Does not appear internally stimulated) Delusion Type: None Suicidal Ideation: No Suicidal Plan: No Suicidal Intention: No Homicidal Ideation: No Homicidal Plan: No Homicidal Intention: No Insight: Poor Judgment: Poor Assessment and Plan - Assessment (1) Dementia with behavioral disturbance Code(s): F03.91 - Unspecified dementia with behavioral disturbance Status: Acute - Plan Plan: Patient continues with appropriate behavior, compliant with medications and cooperative with staff. We will continue current treatment. We will continue to monitor mood and behavior. Treatment team currently exploring options for transfer to an appropriate residential facility. Discharge planning a progress. Justification for Continued Inpatient Stay: At risk of further decompensation a lower level care. (1) Dementia with behavioral disturbance Qualifiers: Dementia type: unspecified type Qualified Code(s): F03.91 - Unspecified dementia with behavioral disturbance
[2017-10-31] MEDS: Insulin NovoLOG Aspart Correctional Sugar Inj SQ SCH ×5 (03:17→20:25)
[2017-10-31] MEDS: QUEtiapine 25 MG Tablet PO SCH ×3 (08:37→20:51)
[2017-10-31] MEDS: Gabapentin 400 MG Capsule PO SCH ×2 (08:37→20:50)
--- NOTE | 2017-10-31 08:44 | P.PNPSY ---
Subjective Chief Complaint: - Remarks: Patient seen for follow-up, chart reviewed. Discussion nursing staff reported the patient with no behavioral disturbances, has a compliant and pleasant with staff. Patient was found sitting in hospital bed noted B, cooperative. Patient states that his mood has been "good" reporting eating better, with adequate appetite. Patient reports sleeping well denying any perceptional services, denying any SI or HI. Patient continues with baseline confusion. Review of Systems All other systems reviewed negative except as stated in HPI Mental Status Examination Appearance: Appropriate Consciousness: Alert (Wearing only a diaper) Orientation: Person, Place Motor Activity: Normal gait Speech: Other Language: Adequate Fund of Knowledge: Poor (Unable to evaluate) Attention and Concentration: Inadequate Memory: Impaired Mood: Good Affect: Appropriate Thought Process & Associations: Other ([place]) Thought Content: Appropriate Hallucination Type: None (Does not appear internally stimulated) Delusion Type: None Suicidal Ideation: No Suicidal Plan: No Suicidal Intention: No Homicidal Ideation: No Homicidal Plan: No Homicidal Intention: No Insight: Poor Judgment: Poor Assessment and Plan - Assessment (1) Dementia with behavioral disturbance Code(s): F03.91 - Unspecified dementia with behavioral disturbance Status: Acute - Plan Plan: Patient continues with good behavioral control with no behavioral disturbances or agitation for the past couple of days. Patient has a compliant with treatment. Continue current treatment. Continue to monitor mood and behavior. Discharge planning in progress. Justification for Continued Inpatient Stay: At risk for further decompensation if at lower level of care (1) Dementia with behavioral disturbance Qualifiers: Dementia type: unspecified type Qualified Code(s): F03.91 - Unspecified dementia with behavioral disturbance
[2017-10-31] MEDS: levETIRAcetam 500 MG Tablet PO SCH ×2 (11:00→20:51)
[2017-11-01] MEDS: Insulin NovoLOG Aspart Correctional Sugar Inj SQ SCH ×5 (02:30→20:26)
[2017-11-01] MEDS: QUEtiapine 25 MG Tablet PO SCH ×3 (08:34→20:37)
[2017-11-01] MEDS: Gabapentin 400 MG Capsule PO SCH ×2 (08:34→20:37)
[2017-11-01] MEDS: levETIRAcetam 500 MG Tablet PO SCH ×2 (11:47→20:37)
--- NOTE | 2017-11-01 16:46 | P.PNPSY ---
Subjective Chief Complaint: - Remarks: Patient was seen and case discussed with nursing. Patient is pleasant and cooperative with exam. Grossly disorganized and confused. He did have a minor outburst this morning with yelling. Poor eye contact, minimally interactive with the interview. Compliant with medications Mental Status Examination Appearance: Appropriate Consciousness: Alert (Wearing only a diaper) Orientation: Person, Place Motor Activity: Normal gait Speech: Other Language: Adequate Fund of Knowledge: Poor (Unable to evaluate) Attention and Concentration: Inadequate Memory: Impaired Mood: Good Affect: Appropriate Thought Process & Associations: Other ([place]) Thought Content: Appropriate Hallucination Type: None (Does not appear internally stimulated) Delusion Type: None Suicidal Ideation: No Suicidal Plan: No Suicidal Intention: No Homicidal Ideation: No Homicidal Plan: No Homicidal Intention: No Insight: Poor Judgment: Poor Assessment and Plan - Assessment (1) Dementia with behavioral disturbance Code(s): F03.91 - Unspecified dementia with behavioral disturbance Status: Acute - Plan Plan: Continue current treatment plan Justification for Continued Inpatient Stay: Patient would decompensate in a less restrictive setting (1) Dementia with behavioral disturbance Qualifiers: Dementia type: unspecified type Qualified Code(s): F03.91 - Unspecified dementia with behavioral disturbance
[2017-11-02] MEDS: Insulin NovoLOG Aspart Correctional Sugar Inj SQ SCH ×5 (03:41→20:44)
[2017-11-02] MEDS: Gabapentin 400 MG Capsule PO SCH ×2 (08:16→20:16)
[2017-11-02] MEDS: QUEtiapine 25 MG Tablet PO SCH ×3 (08:16→20:17)
[2017-11-02] MEDS: levETIRAcetam 500 MG Tablet PO SCH (11:35)
--- NOTE | 2017-11-02 16:11 | P.PNPSY ---
Subjective Chief Complaint: - Remarks: Patient was seen and case discussed with nursing. Patient is on good behavior today. He has not needed any injections. He does remain confused. He is hoping to go fishing and spending his time looking at magazines. Getting along well with his roommate. Compliant with medications Mental Status Examination Appearance: Appropriate Consciousness: Alert (Wearing only a diaper) Orientation: Person, Place Motor Activity: Normal gait Speech: Other Language: Adequate Fund of Knowledge: Poor (Unable to evaluate) Attention and Concentration: Inadequate Memory: Impaired Mood: Good Affect: Appropriate Thought Process & Associations: Other ([place]) Thought Content: Appropriate Hallucination Type: None (Does not appear internally stimulated) Delusion Type: None Suicidal Ideation: No Suicidal Plan: No Suicidal Intention: No Homicidal Ideation: No Homicidal Plan: No Homicidal Intention: No Insight: Poor Judgment: Poor Assessment and Plan - Assessment (1) Dementia with behavioral disturbance Code(s): F03.91 - Unspecified dementia with behavioral disturbance Status: Acute - Plan Plan: Continue current treatment plan Justification for Continued Inpatient Stay: Patient would decompensate in a less restrictive setting (1) Dementia with behavioral disturbance Qualifiers: Dementia type: unspecified type Qualified Code(s): F03.91 - Unspecified dementia with behavioral disturbance
[2017-11-03] MEDS: Insulin NovoLOG Aspart Correctional Sugar Inj SQ SCH ×5 (03:20→20:53)
[2017-11-03] MEDS: Gabapentin 400 MG Capsule PO SCH ×2 (10:01→20:17)
[2017-11-03] MEDS: QUEtiapine 25 MG Tablet PO SCH ×3 (10:01→20:17)
[2017-11-03] MEDS: levETIRAcetam 500 MG Tablet PO SCH ×2 (10:01→23:42)
--- NOTE | 2017-11-03 19:48 | P.PNPSY ---
Subjective Chief Complaint: - Remarks: Patient seen for follow, chart reviewed. Discussion nursing staff reported the patient continued with some confusion, pleasant. Patient was found sitting in hospital bed noted B, cooperative. Patient states that he is feeling "good" denying any physical complaints at this time, reports tolerating medications well, sleeping well states he feels steady when he walks. Review of Systems All other systems reviewed negative except as stated in HPI Mental Status Examination Appearance: Appropriate Consciousness: Alert (Wearing only a diaper) Orientation: Person, Place Motor Activity: Normal gait Speech: Other Language: Adequate Fund of Knowledge: Poor Attention and Concentration: Inadequate Memory: Impaired Mood: Good Affect: Appropriate Thought Process & Associations: Other ([place]) Thought Content: Appropriate Hallucination Type: None (Does not appear internally stimulated) Delusion Type: None Suicidal Ideation: No Suicidal Plan: No Suicidal Intention: No Homicidal Ideation: No Homicidal Plan: No Homicidal Intention: No Insight: Poor Judgment: Poor Assessment and Plan - Assessment (1) Dementia with behavioral disturbance Code(s): F03.91 - Unspecified dementia with behavioral disturbance Status: Acute - Plan Plan: Patient this time continues with baseline confusion, no episodes of agitation, calm and pleasant with staff, compliant with medications. Continue current treatment. Continue to monitor mood and behavior. Discharge planning in progress. Justification for Continued Inpatient Stay: At risk for further decompensation if at lower level of care. (1) Dementia with behavioral disturbance Qualifiers: Dementia type: unspecified type Qualified Code(s): F03.91 - Unspecified dementia with behavioral disturbance
[2017-11-04] MEDS: Insulin NovoLOG Aspart Correctional Sugar Inj SQ SCH ×5 (03:09→20:12)
[2017-11-04] MEDS: QUEtiapine 25 MG Tablet PO SCH ×3 (09:49→19:59)
[2017-11-04] MEDS: levETIRAcetam 500 MG Tablet PO SCH ×2 (09:50→22:14)
[2017-11-04] MEDS: Gabapentin 400 MG Capsule PO SCH ×2 (09:50→19:59)
--- NOTE | 2017-11-04 15:12 | P.DIET ---
Nutritional Evaluation Type of nutrition evaluation: follow-up Nutrition screening: [facility] Screening comments: 10/17 [facility] Malnutrition Subjective Barriers to Nutrition: Refuses to eat at times Oral Diet Tolerance Assessment Indicates: Chewing problems Subjective Comments: Pt sleeping when visited. Sitter at bedside reports pt w/50% po intake for meals today. Sitter says pt is drinking all of the Glucerna Shakes. Objective - Diagnosis Dementia with Behavioral Disturbance - Objective [place] body weight: 154 kg (used HT from prev adm 10 days ago) % IBW: 129 Body Weight Used for Calculations: IBW (70kg) Energy Needs - Lower Range (kCal/kg): 25 Energy Needs - Upper Range (kCal/kg): 30 Lower Limit kCal/kg (kCals): 1,750 Upper Limit kCal/kg (kCals): 2,100 Lower Limit Protein Factor (Grams per Kg): 1.5 Upper Limit Protein Factor (Grams per Kg): 1.8 Lower Protein Needs (Protein): 105 Upper Protein Needs (Protein): 126 Fluid Factor (ml/kg): 30 Estimated Fluid Needs (ml): 2,100 Dietitian Reviewed in Medical Record: Current diet, Curent medications, Intake & Output, Labs, Medical history Diet Order: Regular Oral Diet Intake Amount: Poor <50% Objective Comments: PMH includes, CAD s/p CABG x 3, [place], CVA, HTN, HLD, DM, Gastric Bypass Surgery, Crohn's Disease, anxiety, depression, dementia, Triana's Esophagus Meds include: Lipitor, Keppra, Neurontin, Seroquel, Novolog Hgb A1C 6.1, Accucheck 99 Feeding - Current PO Supplement Current Supplement: Glucerna Shake Current Frequency of Supplement: Daily Current kCals Provided by Supplement: 220 Current Protein Provided by Supplement: 10 Supplement Comments: Pt receiving 6 Glucerna shakes/day as he did last admission Assessment Assessment: Pt continues at nutritional risk r/t diagnosis and poor po intake. Pt w/ Variable po intake 25% to 100% fo rmeals. Pt is edentulous; however, pt declines a [facility] Soft diet. Pt w/a h/o Triana's Esophagus and may benefit from an ST eval. Continue Glucerna Shakes 2 per meal. Pt needs assistance w/meal tray set-up and encouragement to have po intake. Should a CHO-controlled diet be needed, then Rec 2000 ADA. Labs reviewed. Wt changes noted-last wt 10/30. Dietitian following. Recommendations: 1. Pt is edentulous; however, pt declines a [facility] Soft diet 2. Pt w/a h/o Triana's Esophagus and may benefit from an ST eval. 3. Continue Glucerna Shakes 2 per meal 4. Pt needs assistance w/meal tray set-up and encouragement to have po intake 5. Should a CHO-controlled diet be needed, then Rec 1999 ADA 6. Dietitian following Dietitian to Monitor: Lab values, Supplement acceptance, Intake & Output, Diet tolerance, Weight change, PO Intake, Medical course
--- NOTE | 2017-11-04 18:43 | P.PNPSY ---
Subjective Chief Complaint: - Remarks: Patient seen for follow, chart reviewed. Discussion nursing staff reported the patient has required, seclusive at times but good behavioral control. Patient was found sitting in hospital chair out in the hallway noted B, cooperative. Patient states his mood has been good, denying any physical complaints at this time, continue with baseline confusion. Denying any perceptional services or delusions. Review of Systems All other systems reviewed negative except as stated in HPI Mental Status Examination Appearance: Appropriate Consciousness: Alert (Wearing only a diaper) Orientation: Person, Place Motor Activity: Normal gait Speech: Other Language: Adequate Fund of Knowledge: Poor Attention and Concentration: Inadequate Memory: Impaired Mood: Good Affect: Appropriate Thought Process & Associations: Other ([place]) Thought Content: Appropriate Hallucination Type: None (Does not appear internally stimulated) Delusion Type: None Suicidal Ideation: No Suicidal Plan: No Suicidal Intention: No Homicidal Ideation: No Homicidal Plan: No Homicidal Intention: No Insight: Poor Judgment: Poor Assessment and Plan - Assessment (1) Dementia with behavioral disturbance Code(s): F03.91 - Unspecified dementia with behavioral disturbance Status: Acute - Plan Plan: Patient continues with good behavioral control, no episodes of agitation, compliant with medications. We will continue to monitor mood and behavior. Continue current treatment. Discharge planning in progress. Justification for Continued Inpatient Stay: At risk for further decompensation if at lower level of care. (1) Dementia with behavioral disturbance Qualifiers: Dementia type: unspecified type Qualified Code(s): F03.91 - Unspecified dementia with behavioral disturbance
[2017-11-05] MEDS: Insulin NovoLOG Aspart Correctional Sugar Inj SQ SCH ×4 (03:56→20:52)
--- NOTE | 2017-11-05 07:29 | P.PNPSY ---
Subjective Chief Complaint: - Remarks: Patient seen for follow, chart reviewed. Discussion nursing staff reported the patient continues to require encouragement for nutritional intake is a pleasant , cooperative with staff. Patient was found lying hospital bed asleep was able to wake up to interact with interview today. Patient reports feeling "okay" denying any physical complaints at this time continues with baseline confusion. Patient continues to deny any perceptional disturbances or delusions. Review of Systems All other systems reviewed negative except as stated in HPI Mental Status Examination Appearance: Appropriate Consciousness: Alert (Wearing only a diaper) Orientation: Person, Place Motor Activity: Normal gait Speech: Other Language: Adequate Fund of Knowledge: Poor Attention and Concentration: Inadequate Memory: Impaired Mood: Good Affect: Appropriate Thought Process & Associations: Other ([place]) Thought Content: Appropriate Hallucination Type: None (Does not appear internally stimulated) Delusion Type: None Suicidal Ideation: No Suicidal Plan: No Suicidal Intention: No Homicidal Ideation: No Homicidal Plan: No Homicidal Intention: No Insight: Poor Judgment: Poor Assessment and Plan - Assessment (1) Dementia with behavioral disturbance Code(s): F03.91 - Unspecified dementia with behavioral disturbance Status: Acute - Plan Plan: Patient continues with baseline confusion, has been calm and cooperative with staff, compliant with medications with no aggressive behaviors or episodes of agitation. Continue current treatment. Continue to monitor mood and behavior. Discharge planning in progress. Justification for Continued Inpatient Stay: At risk for further decompensation if at lower level of care (1) Dementia with behavioral disturbance Qualifiers: Dementia type: unspecified type Qualified Code(s): F03.91 - Unspecified dementia with behavioral disturbance
[2017-11-05] MEDS: QUEtiapine 25 MG Tablet PO SCH ×3 (08:43→20:30)
[2017-11-05] MEDS: Gabapentin 400 MG Capsule PO SCH ×2 (08:43→20:30)
[2017-11-05] MEDS: levETIRAcetam 500 MG Tablet PO SCH ×2 (12:47→21:47)
[2017-11-06] MEDS: Insulin NovoLOG Aspart Correctional Sugar Inj SQ SCH ×3 (08:41→20:37)
[2017-11-06] MEDS: QUEtiapine 25 MG Tablet PO SCH ×3 (08:42→20:34)
[2017-11-06] MEDS: Gabapentin 400 MG Capsule PO SCH ×2 (08:42→20:35)
[2017-11-06] MEDS: levETIRAcetam 500 MG Tablet PO SCH ×2 (11:05→22:03)
--- NOTE | 2017-11-06 14:44 | P.PNPSY ---
Subjective Chief Complaint: - Remarks: Patient seen for follow up; chart reviewed. Discussion with nursing staff reported that the patient with good behavioral control, no episodes of irritability or agitation. Patient was found sitting hospital chair noted B, cooperative. Patient stated he is feeling "good" continues with baseline confusion secondary to dementia. Patient reports eating and drinking well, no issues with bowel movements and denies any physical complaints at this time. Patient denies any perceptional disturbances or delusions. Review of Systems All other systems reviewed negative except as stated in HPI Mental Status Examination Appearance: Appropriate Consciousness: Alert (Wearing only a diaper) Orientation: Person, Place Motor Activity: Normal gait Speech: Other Language: Adequate Fund of Knowledge: Poor Attention and Concentration: Inadequate Memory: Impaired Mood: Good Affect: Appropriate Thought Process & Associations: Other ([place]) Thought Content: Appropriate Hallucination Type: None Delusion Type: None Suicidal Ideation: No Suicidal Plan: No Suicidal Intention: No Homicidal Ideation: No Homicidal Plan: No Homicidal Intention: No Insight: Poor Judgment: Poor Assessment and Plan - Assessment (1) Dementia with behavioral disturbance Code(s): F03.91 - Unspecified dementia with behavioral disturbance Status: Acute - Plan Plan: Patient this time continues with no behavioral disturbances, no episodes of agitation or irritability, has been calm and pleasant and cooperative with staff. Patient continue current treatment. We will continue to monitor mood and behavior. Patient continue one-to-one observation for high fall risk. Discharge planning a progress. Justification for Continued Inpatient Stay: At risk of further decompensation a lower level of care. (1) Dementia with behavioral disturbance Qualifiers: Dementia type: unspecified type Qualified Code(s): F03.91 - Unspecified dementia with behavioral disturbance
[2017-11-07] MEDS: Insulin NovoLOG Aspart Correctional Sugar Inj SQ SCH ×7 (07:41→20:42)
[2017-11-07] MEDS: Gabapentin 400 MG Capsule PO SCH ×2 (09:09→20:43)
[2017-11-07] MEDS: QUEtiapine 25 MG Tablet PO SCH ×3 (09:09→20:44)
[2017-11-07] MEDS: levETIRAcetam 500 MG Tablet PO SCH ×2 (12:03→20:44)
--- NOTE | 2017-11-07 14:24 | P.PNPSY ---
Subjective Chief Complaint: - Remarks: Patient seen for follow, chart reviewed. Discussion nursing staff reported the patient with no behavioral changes, cooperative and pleasant. Patient was found sitting hospital bed noted B, cooperative. Patient state he is feeling "good" denying any perceptual services or delusions, continues with confusion at baseline. Patient reports eating and drinking well with adequate tolerance to medications and no issues with bowel movement. Patient denies any SI or HI. Review of Systems All other systems reviewed negative except as stated in HPI Mental Status Examination Appearance: Appropriate Consciousness: Alert (Wearing only a diaper) Orientation: Person, Place Motor Activity: Normal gait Speech: Other Language: Adequate Fund of Knowledge: Poor Attention and Concentration: Inadequate Memory: Impaired Mood: Good Affect: Appropriate Thought Process & Associations: Other ([place]) Thought Content: Appropriate Hallucination Type: None Delusion Type: None Suicidal Ideation: No Suicidal Plan: No Suicidal Intention: No Homicidal Ideation: No Homicidal Plan: No Homicidal Intention: No Insight: Poor Judgment: Poor Assessment and Plan - Assessment (1) Dementia with behavioral disturbance Code(s): F03.91 - Unspecified dementia with behavioral disturbance Status: Acute - Plan Plan: Patient continues with good behavioral control, compliant with medications and pleasant with staff. Patient to continue current treatment. Continue to monitor mood and behavior. Discharge planning in progress. Justification for Continued Inpatient Stay: At risk of further decompensation at lower level care. (1) Dementia with behavioral disturbance Qualifiers: Dementia type: unspecified type Qualified Code(s): F03.91 - Unspecified dementia with behavioral disturbance
[2017-11-08] MEDS: Insulin NovoLOG Aspart Correctional Sugar Inj SQ SCH ×4 (03:14→17:58)
[2017-11-08] MEDS: QUEtiapine 25 MG Tablet PO SCH ×2 (09:55→15:59)
[2017-11-08] MEDS: levETIRAcetam 500 MG Tablet PO SCH ×3 (09:55→21:48)
[2017-11-08] MEDS: Gabapentin 400 MG Capsule PO SCH ×2 (09:55→21:47)
--- NOTE | 2017-11-08 14:11 | P.PNPSY ---
Subjective Chief Complaint: - Remarks: Pt seen and discussed with staff. Chart reviewed. 1:1 for falls risks. He is childlike but compliant and cooperative with care and medications. Some outbursts in the evening, but has been more redirectable per staff. Sleep was improved last night. Mental Status Examination Appearance: Appropriate Consciousness: Alert (Wearing only a diaper) Orientation: Person, Place Motor Activity: Normal gait Speech: Other Language: Adequate Fund of Knowledge: Poor Attention and Concentration: Inadequate Memory: Impaired Mood: Good Affect: Appropriate Thought Process & Associations: Other ([place]) Thought Content: Appropriate Hallucination Type: None Delusion Type: None Suicidal Ideation: No Suicidal Plan: No Suicidal Intention: No Homicidal Ideation: No Homicidal Plan: No Homicidal Intention: No Insight: Poor Judgment: Poor Assessment and Plan - Assessment (1) Dementia with behavioral disturbance Code(s): F03.91 - Unspecified dementia with behavioral disturbance Status: Acute - Plan Plan: Continue current tx plan Justification for Continued Inpatient Stay: risk of decompensation (1) Dementia with behavioral disturbance Qualifiers: Dementia type: unspecified type Qualified Code(s): F03.91 - Unspecified dementia with behavioral disturbance
[2017-11-09] MEDS: QUEtiapine 25 MG Tablet PO SCH ×4 (00:01→21:33)
[2017-11-09] MEDS: Gabapentin 400 MG Capsule PO SCH ×2 (08:58→21:31)
[2017-11-09] MEDS: Insulin NovoLOG Aspart Correctional Sugar Inj SQ SCH ×5 (08:59→21:32)
[2017-11-09] MEDS: levETIRAcetam 500 MG Tablet PO SCH ×2 (14:50→22:03)
--- NOTE | 2017-11-09 15:04 | P.PNPSY ---
Subjective Chief Complaint: - Remarks: Pt seen and discussed with staff. He is resistant to care and was agitated and aggressive during hygiene care and had a non-injurious fall. Staff report that pt is compliant and cooperative with medications but quickly escalates during attempts at care. During rounds he is pleasant and cooperative. He denies any pain or discomfort. Mental Status Examination Appearance: Appropriate Consciousness: Alert (Wearing only a diaper) Orientation: Person, Place Motor Activity: Normal gait Speech: Other Language: Adequate Fund of Knowledge: Poor Attention and Concentration: Inadequate Memory: Impaired Mood: Good Affect: Appropriate Thought Process & Associations: Other ([place]) Thought Content: Appropriate Hallucination Type: None Delusion Type: None Suicidal Ideation: No Suicidal Plan: No Suicidal Intention: No Homicidal Ideation: No Homicidal Plan: No Homicidal Intention: No Insight: Poor Judgment: Poor Assessment and Plan - Assessment (1) Dementia with behavioral disturbance Code(s): F03.91 - Unspecified dementia with behavioral disturbance Status: Acute - Plan Plan: Continue current tx plan Justification for Continued Inpatient Stay: impairments in safety (1) Dementia with behavioral disturbance Qualifiers: Dementia type: unspecified type Qualified Code(s): F03.91 - Unspecified dementia with behavioral disturbance
[2017-11-10] MEDS: Insulin NovoLOG Aspart Correctional Sugar Inj SQ SCH ×4 (08:50→20:31)
[2017-11-10] MEDS: QUEtiapine 25 MG Tablet PO SCH ×3 (09:28→20:30)
[2017-11-10] MEDS: Gabapentin 400 MG Capsule PO SCH ×2 (09:28→20:30)
[2017-11-10] MEDS: levETIRAcetam 500 MG Tablet PO SCH ×2 (10:10→11:00)
--- NOTE | 2017-11-10 16:08 | P.PNPSY ---
Subjective Chief Complaint: - Remarks: Patient seen for follow, chart reviewed. Discussion nursing staff reported patient continues to be pleasant, had one episode when she got upset when patient provided help with showering but no aggressive behavior. Patient was found sitting hospital bed noted B, cooperative. Patient state he is feeling "good" denying any physical complaints, states he is eating and drinking well, denies any perceptional services or delusions. Patient denies any SI or HI. Patient states he is tolerating medications well, and having adequate appetite. Patient continues with baseline confusion. Review of Systems All other systems reviewed negative except as stated in HPI Mental Status Examination Appearance: Appropriate Consciousness: Alert (Wearing only a diaper) Orientation: Person, Place Motor Activity: Normal gait Speech: Other Language: Adequate Fund of Knowledge: Poor Attention and Concentration: Inadequate Memory: Impaired Mood: Good Affect: Appropriate Thought Process & Associations: Other ([place]) Thought Content: Appropriate Hallucination Type: None Delusion Type: None Suicidal Ideation: No Suicidal Plan: No Suicidal Intention: No Homicidal Ideation: No Homicidal Plan: No Homicidal Intention: No Insight: Poor Judgment: Poor Assessment and Plan - Assessment (1) Dementia with behavioral disturbance Code(s): F03.91 - Unspecified dementia with behavioral disturbance Status: Acute - Plan Plan: Patient appears to have some frustrations when it comes to ADLs which he occasionally becomes upset but has not had any aggressive behavior or episodes of agitation. Patient continues to compliance with treatment. Continue with baseline confusion secondary to dementia. We will continue current treatment medications, continue to monitor mood and behavior. Discharge planning in progress. Justification for Continued Inpatient Stay: At risk of further decompensation a lower level of care. (1) Dementia with behavioral disturbance Qualifiers: Dementia type: unspecified type Qualified Code(s): F03.91 - Unspecified dementia with behavioral disturbance
--- NOTE | 2017-11-10 17:07 | P.DIET ---
Nutritional Evaluation Type of nutrition evaluation: follow-up Nutrition screening: [facility] Screening comments: 10/17 [facility] Malnutrition Subjective Oral Diet Tolerance Assessment Indicates: Chewing problems Subjective Comments: Pt sleeping when visited. Sitter at bedside reports pt w/10% po intake for meals today. Sitter says pt is drinking all of the Glucerna Shakes. Objective - Diagnosis Dementia with Behavioral Disturbance - Objective [place] body weight: 154 kg (used HT from prev adm 10 days ago) % IBW: 129 Body Weight Used for Calculations: IBW (70kg) Energy Needs - Lower Range (kCal/kg): 25 Energy Needs - Upper Range (kCal/kg): 30 Lower Limit kCal/kg (kCals): 1,750 Upper Limit kCal/kg (kCals): 2,100 Lower Limit Protein Factor (Grams per Kg): 1.5 Upper Limit Protein Factor (Grams per Kg): 1.8 Lower Protein Needs (Protein): 105 Upper Protein Needs (Protein): 126 Fluid Factor (ml/kg): 30 Estimated Fluid Needs (ml): 2,100 Dietitian Reviewed in Medical Record: Current diet, Curent medications, Intake & Output, Labs, Medical history Diet Order: Regular Oral Diet Intake Amount: Poor <50% Objective Comments: PMH includes, CAD s/p CABG x 3, [place], CVA, HTN, HLD, DM, Gastric Bypass Surgery, Crohn's Disease, anxiety, depression, dementia, Triana's Esophagus Meds include: Lipitor, Keppra, Neurontin, Seroquel, Novolog Hgb A1C 6.1, Accucheck 99 Feeding - Current PO Supplement Current Supplement: Glucerna Shake Current Frequency of Supplement: Daily Current kCals Provided by Supplement: 220 Current Protein Provided by Supplement: 10 Supplement Comments: Pt receiving 6 Glucerna shakes/day(2 per meal) Assessment Assessment: Pt continues at nutritional risk r/t diagnosis and poor po intake. Pt w/ Variable po intake 10% to 100% fo rmeals. Pt is edentulous; however, pt previously declined a [facility] Soft diet. Pt w/a h/o Triana's Esophagus and may benefit from an ST eval. Continue Glucerna Shakes 2 per meal. Pt needs assistance w/meal tray set-up and encouragement to have po intake. Should a CHO-controlled diet be needed, then Rec 2000 ADA. Labs reviewed. Wt changes noted-last wt 10/30. Dietitian following. Recommendations: 1. Pt is edentulous; however, [facility] 2. Pt w/a h/o Triana's Esophagus and may benefit from an ST eval. 3. Continue Glucerna Shakes 2 per meal 4. Pt needs assistance w/meal tray set-up and encouragement to have po intake 5. Should a CHO-controlled diet be needed, then Rec 1999 ADA 6. Dietitian following Dietitian to Monitor: Lab values, Supplement acceptance, Intake & Output, Diet tolerance, Weight change, PO Intake, Medical course
[2017-11-11] MEDS: Insulin NovoLOG Aspart Correctional Sugar Inj SQ SCH ×5 (03:45→20:16)
[2017-11-11] MEDS: QUEtiapine 25 MG Tablet PO SCH ×3 (08:05→20:15)
[2017-11-11] MEDS: Gabapentin 400 MG Capsule PO SCH ×2 (08:05→20:15)
[2017-11-11] MEDS: levETIRAcetam 500 MG Tablet PO SCH ×2 (10:30→11:45)
--- NOTE | 2017-11-11 14:21 | P.PNPSY ---
Subjective Chief Complaint: - Remarks: Patient seen for follow, chart reviewed. Discussion nursing staff reported the patient with no behavioral changes, has some been somewhat intrusive this morning but cooperative no episodes of agitation. Patient was found sitting in hospital bed noted B, cooperative. With sitter at bedside. Patient states he is feeling "good" continues denying physical complaints daily eating and drinking well with adequate bowel movement. Patient reports tolerating medication without adverse drug reactions. Patient continues with baseline confusion. Review of Systems All other systems reviewed negative except as stated in HPI Mental Status Examination Appearance: Appropriate Consciousness: Alert (Wearing only a diaper) Orientation: Person, Place Motor Activity: Normal gait Speech: Other Language: Adequate Fund of Knowledge: Poor Attention and Concentration: Inadequate Memory: Impaired Mood: Good Affect: Appropriate Thought Process & Associations: Other ([place]) Thought Content: Appropriate Hallucination Type: None Delusion Type: None Suicidal Ideation: No Suicidal Plan: No Suicidal Intention: No Homicidal Ideation: No Homicidal Plan: No Homicidal Intention: No Insight: Poor Judgment: Poor Assessment and Plan - Assessment (1) Dementia with behavioral disturbance Code(s): F03.91 - Unspecified dementia with behavioral disturbance Status: Acute - Plan Plan: Patient this time continues with baseline confusion with no behavioral disturbances of of being somewhat intrusive this point was easily redirectable. Patient continues to have limited p.o. intake but is having adequate fluid intake. Dietitian input appreciated. ST fuller ordered. Physical therapy input appreciated. We will continue current treatment. Will continue monitor mood and behavior. Discharge planning a progress. Justification for Continued Inpatient Stay: at risk for further decompensation at lower level of care. (1) Dementia with behavioral disturbance Qualifiers: Dementia type: unspecified type Qualified Code(s): F03.91 - Unspecified dementia with behavioral disturbance
[2017-11-12] MEDS: Insulin NovoLOG Aspart Correctional Sugar Inj SQ SCH ×5 (03:19→20:41)
[2017-11-12] MEDS: Gabapentin 400 MG Capsule PO SCH ×2 (08:07→20:41)
[2017-11-12] MEDS: QUEtiapine 25 MG Tablet PO SCH ×3 (08:07→20:41)
[2017-11-12] MEDS: levETIRAcetam 500 MG Tablet PO SCH ×2 (11:02→22:06)
--- NOTE | 2017-11-12 14:51 | P.PNPSY ---
Subjective Chief Complaint: - Remarks: Patient seen for follow up; chart reviewed. Discussion with nursing staff reported with no changes in behavior, irritable at times when confused but redirectable; no aggressive behavior. Patient was found sitting on bed eating lunch, noted to be calm and cooperative; smiling at times. He states that he has been feeling "good" denies any physical complaints at this time, reports adequate appetite and bowel movement. He denies any perceptual disturbances; denies any SI or HI. Continues with confusion. Review of Systems All other systems reviewed negative except as stated in HPI Mental Status Examination Appearance: Appropriate Consciousness: Alert (Wearing only a diaper) Orientation: Person, Place Motor Activity: Normal gait Speech: Other Language: Adequate Fund of Knowledge: Poor Attention and Concentration: Inadequate Memory: Impaired Mood: Good Affect: Appropriate Thought Process & Associations: Other ([place]) Thought Content: Appropriate Hallucination Type: None Delusion Type: None Suicidal Ideation: No Suicidal Plan: No Suicidal Intention: No Homicidal Ideation: No Homicidal Plan: No Homicidal Intention: No Insight: Poor Judgment: Poor Assessment and Plan - Assessment (1) Dementia with behavioral disturbance Code(s): F03.91 - Unspecified dementia with behavioral disturbance Status: Acute - Plan Plan: Patient continues with baseline confusion with occasional episodes of irritability but no aggressive behavior. Continue current treatment. Continue monitor mood and behavior. Discharge planning a progress. Justification for Continued Inpatient Stay: At risk of further decompensation a lower level care. (1) Dementia with behavioral disturbance Qualifiers: Dementia type: unspecified type Qualified Code(s): F03.91 - Unspecified dementia with behavioral disturbance
[2017-11-13] MEDS: Insulin NovoLOG Aspart Correctional Sugar Inj SQ SCH ×4 (03:25→20:00)
[2017-11-13] MEDS: Gabapentin 400 MG Capsule PO SCH ×2 (09:38→20:19)
[2017-11-13] MEDS: QUEtiapine 25 MG Tablet PO SCH ×3 (09:38→20:20)
[2017-11-13] MEDS: levETIRAcetam 500 MG Tablet PO SCH ×2 (11:09→21:50)
--- NOTE | 2017-11-13 19:53 | P.PNPSY ---
Subjective Chief Complaint: - Remarks: Patient seen for follow up; chart reviewed. Discussion with nursing staff reported that patient with no behavioral disturbances, at times irritable but redirectable. Patient was found sitting on hospital bed, states feeling bored at times but in general having good mood, denies any physical complaints. He reports good appetite, adequate bowel movement. He denies any perceptual disturbances, denies any delusions but continues with baseline confusion. Review of Systems All other systems reviewed negative except as stated in HPI Mental Status Examination Appearance: Appropriate Consciousness: Alert (Wearing only a diaper) Orientation: Person, Place Motor Activity: Normal gait Speech: Other Language: Adequate Fund of Knowledge: Poor Attention and Concentration: Inadequate Memory: Impaired Mood: Good Affect: Appropriate Thought Process & Associations: Other ([place]) Thought Content: Appropriate Hallucination Type: None Delusion Type: None Suicidal Ideation: No Suicidal Plan: No Suicidal Intention: No Homicidal Ideation: No Homicidal Plan: No Homicidal Intention: No Insight: Poor Judgment: Poor Assessment and Plan - Assessment (1) Dementia with behavioral disturbance Code(s): F03.91 - Unspecified dementia with behavioral disturbance Status: Acute - Plan Plan: Patient continues with good behavioral control, no episodes of agitation although at times irritable but redirectable. Patient compliant with treatment. Patient continues with baseline confusion secondary to neurocognitive deficits. Continue to monitor mood and behavior. Discharge planning in progress. Justification for Continued Inpatient Stay: At risk for further decompensation if at lower level of care. (1) Dementia with behavioral disturbance Qualifiers: Dementia type: unspecified type Qualified Code(s): F03.91 - Unspecified dementia with behavioral disturbance
[2017-11-14] MEDS: Insulin NovoLOG Aspart Correctional Sugar Inj SQ SCH ×5 (03:50→20:21)
[2017-11-14] MEDS: QUEtiapine 25 MG Tablet PO SCH ×3 (09:13→20:14)
[2017-11-14] MEDS: Gabapentin 400 MG Capsule PO SCH ×3 (09:13→20:21)
[2017-11-14] MEDS: levETIRAcetam 500 MG Tablet PO SCH (12:14)
--- NOTE | 2017-11-14 18:18 | P.PNPSY ---
Subjective Chief Complaint: - Remarks: Patient seen for follow, chart reviewed. Nursing staff reported the patient slept well, compliant medications are continued with baseline confusion. No behavioral disturbances. Patient was found sitting in hospital bed noted B, cooperative. Patient states that he is feeling good, denies any physical complaints, reports complying with treatment. Denies any SI/HI, AVH or delusions. Continues with baseline confusion. Review of Systems All other systems reviewed negative except as stated in HPI Mental Status Examination Appearance: Appropriate Consciousness: Alert (Wearing only a diaper) Orientation: Person, Place Motor Activity: Normal gait Speech: Other Language: Adequate Fund of Knowledge: Poor Attention and Concentration: Inadequate Memory: Impaired Mood: Good Affect: Appropriate Thought Process & Associations: Other ([place]) Thought Content: Appropriate Hallucination Type: None Delusion Type: None Suicidal Ideation: No Suicidal Plan: No Suicidal Intention: No Homicidal Ideation: No Homicidal Plan: No Homicidal Intention: No Insight: Poor Judgment: Poor Assessment and Plan - Assessment (1) Dementia with behavioral disturbance Code(s): F03.91 - Unspecified dementia with behavioral disturbance Status: Acute - Plan Plan: Patient continues with baseline confusion, no episodes of agitation, no. Patient has been pleasant and cooperative with staff. Continue current treatment. Continue to monitor mood and behavior. Discharge planning in progress. Justification for Continued Inpatient Stay: At risk of further decompensation at lower level of care. (1) Dementia with behavioral disturbance Qualifiers: Dementia type: unspecified type Qualified Code(s): F03.91 - Unspecified dementia with behavioral disturbance
[2017-11-14] MEDS ORDERED: Haloperidol Inj 5 MG/ML Ampul ONE (20:04)
[2017-11-14] MEDS ORDERED: Haloperidol Inj 5 MG/ML Ampul IM ONE (20:15)
[2017-11-15] MEDS: Insulin NovoLOG Aspart Correctional Sugar Inj SQ SCH ×5 (04:15→20:50)
[2017-11-15] MEDS: QUEtiapine 25 MG Tablet PO SCH ×4 (04:16→20:50)
[2017-11-15] MEDS: levETIRAcetam 500 MG Tablet PO SCH ×3 (04:16→20:51)
[2017-11-15] MEDS: Gabapentin 400 MG Capsule PO SCH ×2 (08:51→20:50)
--- NOTE | 2017-11-15 13:11 | P.PNPSY ---
Subjective Chief Complaint: - Remarks: Reviewed electronic medical records and discussed case with staff. Follow-up was conducted in the day room. Patient sitting in a chair dozing with his patient bail bonding agent at his side. He wakens briefly and mumbles some answers. His nurse reports that the patient had a rough night and had to be given an ETO. Today so far, he has had a shower, ate his breakfast, and took his medications. The sitter reports patient ate 50% of his breakfast and was extremely restless for a period of time afterwards. Mental Status Examination Appearance: Appropriate Consciousness: Alert (Wearing only a diaper) Orientation: Person, Place Motor Activity: Normal gait Speech: Other Language: Adequate Fund of Knowledge: Poor Attention and Concentration: Inadequate Memory: Impaired Mood: Good Affect: Appropriate Thought Process & Associations: Other ([place]) Thought Content: Appropriate Hallucination Type: None Delusion Type: None Suicidal Ideation: No Suicidal Plan: No Suicidal Intention: No Homicidal Ideation: No Homicidal Plan: No Homicidal Intention: No Insight: Poor Judgment: Poor Assessment and Plan - Assessment (1) Dementia with behavioral disturbance Code(s): F03.91 - Unspecified dementia with behavioral disturbance Status: Acute - Plan Plan: Patient continues with baseline confusion, no episodes of agitation, no. Patient has been pleasant and cooperative with staff. Continue current treatment. Continue to monitor mood and behavior. Discharge planning in progress. Justification for Continued Inpatient Stay: Moving this patient to a less restrictive environment would likely result in decompensation. (1) Dementia with behavioral disturbance Qualifiers: Dementia type: unspecified type Qualified Code(s): F03.91 - Unspecified dementia with behavioral disturbance
[2017-11-16] MEDS: Gabapentin 400 MG Capsule PO SCH ×2 (09:39→20:39)
[2017-11-16] MEDS: Insulin NovoLOG Aspart Correctional Sugar Inj SQ SCH ×4 (09:39→20:39)
[2017-11-16] MEDS: QUEtiapine 25 MG Tablet PO SCH ×3 (09:40→20:39)
[2017-11-16] MEDS: levETIRAcetam 500 MG Tablet PO SCH ×3 (09:44→22:06)
--- NOTE | 2017-11-16 13:24 | P.PNPSY ---
Subjective Chief Complaint: - Remarks: The patient was seen today for psychiatric reevaluation, the patient is calm, cooperative, very pleasant. Is fully oriented 3. He reports his mood as very happy, he rated his mood as 8/10. He reports good appetite, he had good sleep last night, has been taking his medications, no significant side effects reported. No agitation, no aggressive behavior has been reported. Mental Status Examination Appearance: Appropriate Consciousness: Alert (Wearing only a diaper) Orientation: Person, Place Motor Activity: Normal gait Speech: Other Language: Adequate Fund of Knowledge: Poor Attention and Concentration: Inadequate Memory: Impaired Mood: Good Affect: Appropriate Thought Process & Associations: Other ([place]) Thought Content: Appropriate Hallucination Type: None Delusion Type: None Suicidal Ideation: No Suicidal Plan: No Suicidal Intention: No Homicidal Ideation: No Homicidal Plan: No Homicidal Intention: No Insight: Poor Judgment: Poor Assessment and Plan - Assessment (1) Dementia with behavioral disturbance Code(s): F03.91 - Unspecified dementia with behavioral disturbance Status: Acute - Plan Plan: Continue current psychotropic regimen. Continue process of admission. Brief supportive psychotherapy provided Justification for Continued Inpatient Stay: Patient has an elevated risk to decompensate at a lower level (1) Dementia with behavioral disturbance Qualifiers: Dementia type: unspecified type Qualified Code(s): F03.91 - Unspecified dementia with behavioral disturbance
[2017-11-16] MEDS ORDERED: Haloperidol Inj 5 MG/ML Ampul ONE ×2 (18:43→18:45)
[2017-11-16] MEDS ORDERED: Haloperidol Inj 5 MG/ML Ampul IM ONE (19:00)
[2017-11-17] MEDS: Insulin NovoLOG Aspart Correctional Sugar Inj SQ SCH ×4 (04:07→20:38)
[2017-11-17] MEDS: Gabapentin 400 MG Capsule PO SCH ×2 (09:37→20:38)
[2017-11-17] MEDS: QUEtiapine 25 MG Tablet PO SCH ×3 (09:38→20:38)
[2017-11-17] MEDS: levETIRAcetam 500 MG Tablet PO SCH ×2 (09:45→21:51)
--- NOTE | 2017-11-17 09:45 | P.TTN ---
- Patient Problems Problems: 1. Discharge planning 2. Medication compliance 3. Knowledge deficit 4. Lack of coping skills - Progress Toward Goals Provider Present: Dr. Ashely Hernandez Provider Input: Patient has been stable psych for the last week; however he has recently had an altered mental status. Nurse(s) Present: ABIMAEL Blevins Nurse Input: Per nurse patient had to be ETO, due to aggressive behavior, patient was unable and extremely difficult to verbally redirect. Psychiatric Counselors Present: Angie Velasquez [facility] Psychiatric Therapist Input: Counselor will continue skilling skill nursing placement for an appropriate hospital discharge. Group Spec/RT/OT/AARON Present: GALEN Gardner Group Spec/RT/OT/AARON Input: Per RT patient has been unable to appropriately participate with groups or activities - Discharge Plan Other ([facility] to [facility] when [facility]) - Documentation Teaching Recipient: Patient
--- NOTE | 2017-11-17 16:41 | P.PNPSY ---
Subjective Chief Complaint: - Remarks: Patient seen for follow-up, chart reviewed. Discussion with nursing staff reported that the patient required ETO last evening, and was noted to be tired this morning but compliant with medications. Patient was found lying hospital bed noted to be, cooperative. Patient stated that he is feeling "alright" denying any physical complaints at this time, does not recall episode of agitation less evening, reports eating and drinking well, with no perceptual disturbances or delusions. Patient continues at baseline confusion. Review of Systems All other systems reviewed negative except as stated in HPI Mental Status Examination Appearance: Appropriate Consciousness: Alert (Wearing only a diaper) Orientation: Person, Place Motor Activity: Normal gait Speech: Other Language: Adequate Fund of Knowledge: Poor Attention and Concentration: Inadequate Memory: Impaired Mood: Good Affect: Appropriate Thought Process & Associations: Other ([place]) Thought Content: Appropriate Hallucination Type: None Delusion Type: None Suicidal Ideation: No Suicidal Plan: No Suicidal Intention: No Homicidal Ideation: No Homicidal Plan: No Homicidal Intention: No Insight: Poor Judgment: Poor Assessment and Plan - Assessment (1) Dementia with behavioral disturbance Code(s): F03.91 - Unspecified dementia with behavioral disturbance Status: Acute - Plan Plan: Patient noted to have good behavioral control this morning, noted be pleasant and cooperative, continues with baseline confusion. We will continue to monitor mood and behavior. Patient noted to be responding to certain staff members when assigned to him for one-to-one observation. discharge planning a progress. Justification for Continued Inpatient Stay: At risk for further decompensation if at lower level of care. (1) Dementia with behavioral disturbance Qualifiers: Dementia type: unspecified type Qualified Code(s): F03.91 - Unspecified dementia with behavioral disturbance
--- NOTE | 2017-11-17 18:09 | P.DIET ---
Nutritional Evaluation Type of nutrition evaluation: follow-up Nutrition screening: [facility] Screening comments: 10/17 [facility] Malnutrition Subjective Barriers to Nutrition: Refuses to eat at times Oral Diet Tolerance Assessment Indicates: Chewing problems Subjective Comments: PO intake 100% for breakfast, 75% for lunch and 50% for dinner today. Objective - Diagnosis Dementia with Behavioral Disturbance - Objective [place] body weight: 154 kg (previous admission Ht 172.7cm) % IBW: 129 Body Weight Used for Calculations: IBW (70kg) Energy Needs - Lower Range (kCal/kg): 25 Energy Needs - Upper Range (kCal/kg): 30 Lower Limit kCal/kg (kCals): 1,750 Upper Limit kCal/kg (kCals): 2,100 Lower Limit Protein Factor (Grams per Kg): 1.5 Upper Limit Protein Factor (Grams per Kg): 1.8 Lower Protein Needs (Protein): 105 Upper Protein Needs (Protein): 126 Fluid Factor (ml/kg): 30 Estimated Fluid Needs (ml): 2,100 Dietitian Reviewed in Medical Record: Current diet, Curent medications, Intake & Output, Labs, Medical history Diet Order: Regular Oral Diet Intake Amount: Poor <50% Objective Comments: PMH includes, CAD s/p CABG x 3, OR, CVA, HTN, HLD, DM, Gastric Bypass Surgery, Crohn's Disease, anxiety, depression, dementia, Triana's Esophagus Meds include: Lipitor, Keppra, Neurontin, Seroquel Hgb A1C 6.1, POC Glucose 109 LBM 11/15 Feeding - Current PO Supplement Current Supplement: Glucerna Shake Current Frequency of Supplement: Daily Current kCals Provided by Supplement: 220 Current Protein Provided by Supplement: 10 Supplement Comments: Pt receiving 6 Glucerna shakes/day(2 per meal) Assessment Assessment: Pt continues at nutritional risk r/t diagnosis and poor po intake. Pt PO intake improved w/ 50% or greater fo rmeals. Pt is edentulous; however, pt previously declined a [facility] Soft diet. Pt w/a h/o Triana's Esophagus and may benefit from an ST eval. Continue Glucerna Shakes 2 per meal. Pt needs assistance w/meal tray set-up and encouragement to have po intake. Should a CHO-controlled diet be needed, then Rec 2000 ADA. Labs reviewed. Wt changes noted-last wt 11/06. Dietitian following. Recommendations: 1. Pt is edentulous; however, pt declines a [facility] Soft diet 2. Pt w/a h/o Triana's Esophagus and may benefit from an ST eval. 3. Continue Glucerna Shakes 2 per meal 4. Pt needs assistance w/meal tray set-up and encouragement to have po intake 5. Should a CHO-controlled diet be needed, then Rec 2000 ADA 6. A CURRENT Wt is Needed 7. Dietitian following Dietitian to Monitor: Lab values, Supplement acceptance, Intake & Output, Diet tolerance, Weight change, PO Intake, Medical course
[2017-11-18] MEDS: Insulin NovoLOG Aspart Correctional Sugar Inj SQ SCH ×4 (03:00→21:00)
[2017-11-18] MEDS: QUEtiapine 25 MG Tablet PO SCH ×3 (09:26→20:49)
[2017-11-18] MEDS: Gabapentin 400 MG Capsule PO SCH ×2 (09:29→20:49)
[2017-11-18] MEDS: levETIRAcetam 500 MG Tablet PO SCH ×2 (12:58→22:30)
--- NOTE | 2017-11-18 14:16 | P.PNPSY ---
Subjective Chief Complaint: - Remarks: Patient seen for follow, chart reviewed. Discussion nursing staff reported the patient's pleasant this morning, slept well no issues overnight. Patient was found sitting hospital bed with sitter at bedside and assisted with eating noted to be calm, cooperative. Patient states that he is feeling "alright" denying physical complaints at this time, reports his mood as being "good", denies any perceptual disturbances or delusions. Review of Systems All other systems reviewed negative except as stated in HPI Mental Status Examination Appearance: Appropriate Consciousness: Alert (Wearing only a diaper) Orientation: Person, Place Motor Activity: Normal gait Speech: Other Language: Adequate Fund of Knowledge: Poor Attention and Concentration: Inadequate Memory: Impaired Mood: Good Affect: Appropriate Thought Process & Associations: Other ([place]) Thought Content: Appropriate Hallucination Type: None Delusion Type: None Suicidal Ideation: No Suicidal Plan: No Suicidal Intention: No Homicidal Ideation: No Homicidal Plan: No Homicidal Intention: No Insight: Poor Judgment: Poor Assessment and Plan - Assessment (1) Dementia with behavioral disturbance Code(s): F03.91 - Unspecified dementia with behavioral disturbance Status: Acute - Plan Plan: Patient continues with baseline confusion, no aggressive behavior or agitation, noted to be calm and cooperative, med compliant. Continue current treatment, continue to monitor mood and behavior. Discharge planning in progress. Justification for Continued Inpatient Stay: At risk for further decompensation if at lower level of care. (1) Dementia with behavioral disturbance Qualifiers: Dementia type: unspecified type Qualified Code(s): F03.91 - Unspecified dementia with behavioral disturbance
[2017-11-19] MEDS: Insulin NovoLOG Aspart Correctional Sugar Inj SQ SCH ×6 (03:06→20:33)
[2017-11-19] MEDS: Gabapentin 400 MG Capsule PO SCH ×2 (08:22→20:33)
[2017-11-19] MEDS: QUEtiapine 25 MG Tablet PO SCH ×5 (08:23→20:33)
--- NOTE | 2017-11-19 09:57 | P.TTN ---
- Patient Problems Problems: 1. Discharge planning 2. Medication compliance 3. Knowledge deficit 4. Lack of coping skills - Progress Toward Goals Provider Present: Dr. Ashely Hernandez Provider Input: Patient has been stable psych for the last week; however he has recently had an altered mental status. 11/19/17: Pt continues to be stable, Angie continues to search for placement. Margaret and Manda to follow-up with legal department issues. Nurse(s) Present: Felicity, RN, Nurse Input: Per nurse patient had to be ETO, due to aggressive behavior, patient was unable and extremely difficult to verbally redirect. 11/19/17: Per nurse, Vishnu; pt has had no documentable behaviors, he is re-directable. Psychiatric Counselors Present: Angie Velasquez, [facility] Psychiatric Therapist Input: Counselor will continue skilling skill nursing placement for an appropriate hospital discharge. Angie continuing to f/u with snf placement. Group Spec/RT/OT/AARON Present: Tamiko Godoy, TERESA, GALEN Gardner, Obinna Johnson, OT Group Spec/RT/OT/AARON Input: Per RT patient has been unable to appropriately participate with groups or activities. 11/19/17: Pt has been unable to tolerate groups. Occupational Therapist Input: 11/18/17: Pt continues to require physical assistance to complete ADLS, pt is not currently receiving skilled occupational therapy services, assistance is provided by other staff (pt is 1:1 supervision; falls risk). Clinical Coordinator Input: Manda to follow-up with potential legal issues. - Discharge Plan Other ([facility]) Angie is actively pursuing placement at appropriate snf. - Documentation Scribe: Obinna Johnson, MS, OTR Teaching Recipient: Patient
[2017-11-19] MEDS: levETIRAcetam 500 MG Tablet PO SCH ×2 (10:45→22:45)
--- NOTE | 2017-11-19 14:08 | P.PNPSY ---
Subjective Chief Complaint: - Remarks: The patient was seen today for psychiatric reevaluation. The patient was found calm, cooperative, pleasantly confused. Patient reports good mood, good appetite, good sleep last night. He has been taking his medications, no significant side effects reported. No episodes of aggression or agitation reported in the last 24 hours. Mental Status Examination Appearance: Appropriate Consciousness: Alert (Wearing only a diaper) Orientation: Person, Place Motor Activity: Normal gait Speech: Other Language: Adequate Fund of Knowledge: Poor Attention and Concentration: Inadequate Memory: Impaired Mood: Good Affect: Appropriate Thought Process & Associations: Other ([place]) Thought Content: Appropriate Hallucination Type: None Delusion Type: None Suicidal Ideation: No Suicidal Plan: No Suicidal Intention: No Homicidal Ideation: No Homicidal Plan: No Homicidal Intention: No Insight: Poor Judgment: Poor Assessment and Plan - Assessment (1) Dementia with behavioral disturbance Code(s): F03.91 - Unspecified dementia with behavioral disturbance Status: Acute - Plan Plan: Continue current psychotropic regimen. Justification for Continued Inpatient Stay: Has an elevated risk to decompensate at a lower level of care. (1) Dementia with behavioral disturbance Qualifiers: Dementia type: unspecified type Qualified Code(s): F03.91 - Unspecified dementia with behavioral disturbance
[2017-11-19] MEDS ORDERED: Haloperidol Inj 5 MG/ML Ampul ONE (19:59)
[2017-11-19] MEDS ORDERED: Haloperidol Inj 5 MG/ML Ampul IM ONE (20:15)
[2017-11-20] MEDS: Insulin NovoLOG Aspart Correctional Sugar Inj SQ SCH ×5 (03:05→21:24)
[2017-11-20] MEDS: Gabapentin 400 MG Capsule PO SCH ×2 (08:27→21:25)
[2017-11-20] MEDS: QUEtiapine 25 MG Tablet PO SCH ×3 (08:27→21:26)
[2017-11-20] MEDS: levETIRAcetam 500 MG Tablet PO SCH ×2 (11:58→22:09)
--- NOTE | 2017-11-20 13:48 | P.PNPSY ---
Subjective Chief Complaint: - Remarks: The patient was seen today for psychiatric reevaluation. He was also seen in [address]. The patient was very sleepy, poorly cooperative, unable to communicate given his level of sedation. The patient was medicated twice IM yesterday evening due to agitation and disruptive behavior in the unit. Mental Status Examination Appearance: Appropriate Consciousness: Alert (Wearing only a diaper) Orientation: Person, Place Motor Activity: Normal gait Speech: Other Language: Adequate Fund of Knowledge: Poor Attention and Concentration: Inadequate Memory: Impaired Mood: Good Affect: Appropriate Thought Process & Associations: Other ([place]) Thought Content: Appropriate Hallucination Type: None Delusion Type: None Suicidal Ideation: No Suicidal Plan: No Suicidal Intention: No Homicidal Ideation: No Homicidal Plan: No Homicidal Intention: No Insight: Poor Judgment: Poor Assessment and Plan - Assessment (1) Dementia with behavioral disturbance Code(s): F03.91 - Unspecified dementia with behavioral disturbance Status: Acute - Plan Plan: Patient continues to show episodic agitation, especially in the afternoon, I will increase the Seroquel to 25 mg in the morning, 50 mg in the evening, 25 mg at night Justification for Continued Inpatient Stay: Patient continues to show episodic agitation and aggressive behavior. (1) Dementia with behavioral disturbance Qualifiers: Dementia type: unspecified type Qualified Code(s): F03.91 - Unspecified dementia with behavioral disturbance
[2017-11-20] MEDS ORDERED: Haloperidol Inj 5 MG/ML Ampul ONE (19:09)
[2017-11-20] MEDS ORDERED: Haloperidol Inj 5 MG/ML Ampul IM ONE (20:30)
[2017-11-21] MEDS: Insulin NovoLOG Aspart Correctional Sugar Inj SQ SCH ×5 (05:23→21:00)
[2017-11-21] MEDS: QUEtiapine 25 MG Tablet PO SCH ×3 (10:09→21:01)
[2017-11-21] MEDS: Gabapentin 400 MG Capsule PO SCH ×2 (10:09→21:01)
[2017-11-21] MEDS: levETIRAcetam 500 MG Tablet PO SCH ×2 (10:12→22:49)
--- NOTE | 2017-11-21 12:28 | P.PNPSY ---
Subjective Chief Complaint: - Remarks: The patient was seen today for psychiatric reevaluation. Case was widely discussed with nursing staff. The patient is accompanied by a one-to-one sitter. The patient is poorly cooperative, quite sedated, unable to answer most of my questions. However, the patient does report feeling okay, denies suicidal and homicidal ideation, denies visual and auditory hallucinations. he is oriented in person and place. The patient has being quite disruptive, agitated and aggressive, especially in the evening hours and early at night. Last night, he had to be given extra im medication to help him to calm down. Mental Status Examination Appearance: Appropriate Consciousness: Alert (Wearing only a diaper) Orientation: Person, Place Motor Activity: Normal gait Speech: Other Language: Adequate Fund of Knowledge: Poor Attention and Concentration: Inadequate Memory: Impaired Mood: Good Affect: Appropriate Thought Process & Associations: Other ([place]) Thought Content: Appropriate Hallucination Type: None Delusion Type: None Suicidal Ideation: No Suicidal Plan: No Suicidal Intention: No Homicidal Ideation: No Homicidal Plan: No Homicidal Intention: No Insight: Poor Judgment: Poor Assessment and Plan - Assessment (1) Dementia with behavioral disturbance Code(s): F03.91 - Unspecified dementia with behavioral disturbance Status: Acute - Plan Plan: Patient continues to show episodes of aggressive behavior, disorganization and agitation. Continue current psychotropic regimen. I will order routine labs to rule out delirium due to another underlying medical condition. Justification for Continued Inpatient Stay: Patient continues to be episodically psychotic. (1) Dementia with behavioral disturbance Qualifiers: Dementia type: unspecified type Qualified Code(s): F03.91 - Unspecified dementia with behavioral disturbance
[2017-11-21 12:48] LABS: Hemoglobin 12.1 gm/dL (13.0-17.0); Mean Corpuscular HGB Conc 32.8 % (32.0-36.0); Mean Corpuscular Hemoglobin 26.8 pg (27.0-34.0); Mean Corpuscular Volume 81.5 fL (80.0-100.0); Platelet Count 176 th/mm3 (150-450); Red Blood Count 4.54 mil/mm3 (4.50-5.90); White Blood Count 4.4 th/mm3 (4.0-11.0)
[2017-11-21 13:14] LABS: Alanine Aminotransferase 29 U/L (12-78); Albumin 3.3 g/dL (3.4-5.0); Anion Gap 8 meq/L (5-15); Aspartate Aminotransferase 17 U/L (15-37); Blood Urea Nitrogen 9 mg/dL (7-18); Calcium 8.7 mg/dL (8.5-10.1); Carbon Dioxide 27.3 meq/L (21.0-32.0); Chloride 109 meq/L (98-107); Glomerular Filtration Rate 59 mL/min (>89); Glucose,Random 175 mg/dL (74-106); Potassium 3.9 meq/L (3.5-5.1); Sodium 144 meq/L (136-145)
[2017-11-21 13:16] LABS: Alkaline Phosphatase 63 U/L (45-117); Total Protein 6.8 g/dL (6.4-8.2)
[2017-11-21] MEDS ORDERED: Haloperidol Inj 5 MG/ML Ampul ONE (19:21)
[2017-11-21] MEDS ORDERED: Haloperidol Inj 5 MG/ML Ampul IM ONE (20:00)
[2017-11-22] MEDS: Insulin NovoLOG Aspart Correctional Sugar Inj SQ SCH ×5 (04:02→21:10)
--- NOTE | 2017-11-22 08:08 | P.PNPSY ---
Subjective Chief Complaint: - Remarks: Patient's seen in his room with nurse Manan, chart reviewed, patient overall compliant medications, patient discussed with nurse, it appears patient was showing some increased sundowning needing ETO of Haldol. Which did have some good effects. Patient calm this morning continues confused no behavior problems at this time. For now will increase 3 PM Seroquel to 100 mg as opposed to adding a scheduled dose of Haldol at that time. Review of Systems All other systems reviewed negative except as stated in HPI Mental Status Examination Appearance: Appropriate Consciousness: Alert (Wearing only a diaper) Orientation: Person, Place Motor Activity: Normal gait Speech: Other Language: Adequate Fund of Knowledge: Poor Attention and Concentration: Inadequate Memory: Impaired Mood: Good Affect: Appropriate Thought Process & Associations: Other ([place]) Thought Content: Appropriate Hallucination Type: None Delusion Type: None Suicidal Ideation: No Suicidal Plan: No Suicidal Intention: No Homicidal Ideation: No Homicidal Plan: No Homicidal Intention: No Insight: Poor Judgment: Poor Assessment and Plan - Assessment (1) Dementia with behavioral disturbance Code(s): F03.91 - Unspecified dementia with behavioral disturbance Status: Acute - Plan Plan: Patient continues diffusely confused demented with sundowning behavioral issues she medication adjustment above Justification for Continued Inpatient Stay: At this time patient would decompensate a place to a lower level of care Discharge Planning: To be determined (1) Dementia with behavioral disturbance Qualifiers: Dementia type: Alzheimer's disease Alzheimer's disease onset: other onset Qualified Code(s): G30.8 - Other Alzheimer's disease; F02.81 - Dementia in other diseases classified elsewhere with behavioral disturbance
[2017-11-22] MEDS: QUEtiapine 25 MG Tablet PO SCH ×3 (09:26→21:11)
[2017-11-22] MEDS: Gabapentin 400 MG Capsule PO SCH ×2 (09:26→21:09)
[2017-11-22] MEDS ORDERED: Haloperidol Inj 5 MG/ML Ampul ONE ×2 (10:24→22:55)
[2017-11-22] MEDS ORDERED: Haloperidol Inj 5 MG/ML Ampul IM ONE ×2 (10:45→23:15)
[2017-11-22] MEDS: levETIRAcetam 500 MG Tablet PO SCH ×3 (11:32→22:01)
[2017-11-23] MEDS: Insulin NovoLOG Aspart Correctional Sugar Inj SQ SCH ×5 (05:22→20:48)
[2017-11-23] MEDS: Gabapentin 400 MG Capsule PO SCH ×2 (09:50→20:47)
[2017-11-23] MEDS: QUEtiapine 25 MG Tablet PO SCH ×3 (09:50→20:49)
[2017-11-23] MEDS: levETIRAcetam 500 MG Tablet PO SCH ×2 (09:50→22:26)
[2017-11-23] MEDS ORDERED: Haloperidol Inj 5 MG/ML Ampul ONE (18:58)
--- NOTE | 2017-11-23 19:50 | P.PNPSY ---
Subjective Chief Complaint: - Remarks: Reviewed electronic medical records and discussed case with staff. Follow-up was conducted in the hallway. Patient sitting in a [place] chair. Staff reports that he has had to receive ETOs for 3 days in a row. The nurse additionally reports that he is intermittently compliant with his medications. He reports that he is "not feeling good". But he states that he slept well and is been eating good. When asked why he does not feel well he will only respond "it is all my fault". He remains very confused continues to disrobe however, at this time he is quiet. Mental Status Examination Appearance: Appropriate Consciousness: Alert (Wearing only a diaper) Orientation: Person, Place Motor Activity: Normal gait Speech: Other Language: Adequate Fund of Knowledge: Poor Attention and Concentration: Inadequate Memory: Impaired Mood: Good Affect: Appropriate Thought Process & Associations: Other ([place]) Thought Content: Appropriate Hallucination Type: None Delusion Type: None Suicidal Ideation: No Suicidal Plan: No Suicidal Intention: No Homicidal Ideation: No Homicidal Plan: No Homicidal Intention: No Insight: Poor Judgment: Poor Assessment and Plan - Assessment (1) Dementia with behavioral disturbance Code(s): F03.91 - Unspecified dementia with behavioral disturbance Status: Acute - Plan Plan: Continue with current treatment plan discharge planning is in progress. Justification for Continued Inpatient Stay: Moving this patient to a less restrictive environment would likely result in decompensation. (1) Dementia with behavioral disturbance Qualifiers: Dementia type: Alzheimer's disease Alzheimer's disease onset: other onset Qualified Code(s): G30.8 - Other Alzheimer's disease; F02.81 - Dementia in other diseases classified elsewhere with behavioral disturbance
[2017-11-24] MEDS: Insulin NovoLOG Aspart Correctional Sugar Inj SQ SCH ×5 (03:11→21:46)
[2017-11-24] MEDS: QUEtiapine 25 MG Tablet PO SCH ×3 (08:58→20:01)
[2017-11-24] MEDS: Gabapentin 400 MG Capsule PO SCH ×2 (08:58→19:59)
[2017-11-24] MEDS: levETIRAcetam 500 MG Tablet PO SCH ×2 (11:39→21:47)
--- NOTE | 2017-11-24 12:49 | P.PNPSY ---
Subjective Chief Complaint: - Remarks: Reviewed electronic medical records and discussed case with staff. Follow-up was conducted in the patient's room. He was found lying on his bed. He responds to the questions however, he keeps his eyes closed. His nurse reports that he has been quite sedated of late. He did receive an ETO yesterday evening. Patient reports that he feels "terrible". However he is unable to elaborate as to exactly why. Seems that he did not sleep but says he thinks his appetite is good. Mental Status Examination Appearance: Appropriate Consciousness: Alert (Wearing only a diaper) Orientation: Person, Place Motor Activity: Normal gait Speech: Other Language: Adequate Fund of Knowledge: Poor Attention and Concentration: Inadequate Memory: Impaired Mood: Good Affect: Appropriate Thought Process & Associations: Other ([place]) Thought Content: Appropriate Hallucination Type: None Delusion Type: None Suicidal Ideation: No Suicidal Plan: No Suicidal Intention: No Homicidal Ideation: No Homicidal Plan: No Homicidal Intention: No Insight: Poor Judgment: Poor Assessment and Plan - Assessment (1) Dementia with behavioral disturbance Code(s): F03.91 - Unspecified dementia with behavioral disturbance Status: Acute - Plan Plan: Patient will be reevaluated tomorrow by the attending psychiatrist. Continue with current treatment plan. Justification for Continued Inpatient Stay: Moving this patient to a less restrictive environment would likely result in decompensation. (1) Dementia with behavioral disturbance Qualifiers: Dementia type: Alzheimer's disease Alzheimer's disease onset: other onset Qualified Code(s): G30.8 - Other Alzheimer's disease; F02.81 - Dementia in other diseases classified elsewhere with behavioral disturbance
[2017-11-25] MEDS: Insulin NovoLOG Aspart Correctional Sugar Inj SQ SCH ×5 (03:16→20:36)
--- NOTE | 2017-11-25 09:19 | P.PNPSY ---
Subjective Chief Complaint: - Remarks: Patient seen for follow, chart reviewed. Discussion nursing staff reported the patient received ETO yesterday twice throughout the day, was redirectable this morning was some irritability, slept last night. Patient was found sitting on the side of the bed eating breakfast noted to be calm and cooperative. Patient noted to be concrete, and confused at baseline. Patient states that he slept well, eating and drinking well with no complaints of any pain, denies feeling depressed, denies any perceptional services or delusions, noted to have some irritability to his tone but denying feeling or expressing any specific concern that his contributing to his irritability. Denies any SI or HI. Patient states "my helps me". Review of Systems All other systems reviewed negative except as stated in HPI Mental Status Examination Appearance: Appropriate Consciousness: Alert (Wearing only a diaper) Orientation: Person, Place Motor Activity: Normal gait Speech: Other Language: Adequate Fund of Knowledge: Poor Attention and Concentration: Inadequate Memory: Impaired Mood: Good Affect: Appropriate Thought Process & Associations: Other ([place]) Thought Content: Appropriate Hallucination Type: None Delusion Type: None Suicidal Ideation: No Suicidal Plan: No Suicidal Intention: No Homicidal Ideation: No Homicidal Plan: No Homicidal Intention: No Insight: Poor Judgment: Poor Assessment and Plan - Assessment (1) Dementia with behavioral disturbance Code(s): F03.91 - Unspecified dementia with behavioral disturbance Status: Acute - Plan Plan: Patient noted to have some irritability this morning but redirectable, recently had quetiapine afternoon dose increased. We will continue current treatment to monitor change in regimen and its effects on his behavior. We will continue to monitor mood and behavior. Discharge planning a progress. Justification for Continued Inpatient Stay: At risk of further decompensation a lower level care. (1) Dementia with behavioral disturbance Qualifiers: Dementia type: Alzheimer's disease Alzheimer's disease onset: other onset Qualified Code(s): G30.8 - Other Alzheimer's disease; F02.81 - Dementia in other diseases classified elsewhere with behavioral disturbance
[2017-11-25] MEDS: Gabapentin 400 MG Capsule PO SCH ×2 (09:22→20:36)
[2017-11-25] MEDS: QUEtiapine 25 MG Tablet PO SCH ×3 (09:22→20:36)
--- NOTE | 2017-11-25 09:48 | P.TTN ---
- Patient Problems Problems: 1. Discharge planning 2. Medication compliance 3. Knowledge deficit 4. Lack of coping skills - Progress Toward Goals Provider Present: Dr. Ashely Hernandez Provider Input: 11/25/2017; patient has had to be given ETO's during the evening time, redirect with aggressive behavior. Patient has been stable psych for the last week; however he has recently had an altered mental status. : Pt continues to be stable, Angie continues to search for placement. Brent to follow-up with legal department issues. Nurse(s) Present: Felicity, RN, Nurse Input: 11/25/2017; patient's behavior is extremely unpredictable, require redirection and ETO's. Per nurse patient had to be ETO, due to aggressive behavior, patient was unable and extremely difficult to verbally redirect. 11/19: Per nurse, Vishnu; pt has had no documentable behaviors, he is re-directable. Psychiatric Counselors Present: Angie Velasquez, [facility] Psychiatric Therapist Input: 11/25/2017 Counselor will continue faxing packages to SNF skilling placement. Counselor will continue skilling skill nursing placement for an appropriate hospital discharge. Angie continuing to f/u with snf placement. Group Spec/RT/OT/AARON Present: Tamiko Godoy, TERESA, GALEN Gardner, Obinna Johnson OT, GALEN Menezes Group Spec/RT/OT/AARON Input: 11/25/2017; per RT patient has been unable to physically or mentally participate with groups/activities. Per RT patient has been unable to appropriately participate with groups or activities. 11/19/17: Pt has been unable to tolerate groups. Occupational Therapist Input: 11/18/17: Pt continues to require physical assistance to complete ADLS, pt is not currently receiving skilled occupational therapy services, assistance is provided by other staff (pt is 1:1 supervision; falls risk). Clinical Coordinator Input: Manda to follow-up with potential legal issues. - Discharge Plan Other (Patient will be dc to [facility] when linked) Angie is actively pursuing placement at appropriate snf. - Documentation Scribe: Obinna Johnson, MS, OTR Teaching Recipient: Patient
[2017-11-25] MEDS: levETIRAcetam 500 MG Tablet PO SCH ×2 (16:02→23:49)
--- NOTE | 2017-11-25 16:28 | P.DIET ---
Nutritional Evaluation Type of nutrition evaluation: follow-up Nutrition screening: [facility] ([facility] for Malnutrition) Subjective Oral Diet Tolerance Assessment Indicates: Edentulous Objective - Diagnosis Dementia with Behavioral Disturbance - Objective % IBW: 129 Body Weight Used for Calculations: IBW (70kg) Energy Needs - Lower Range (kCal/kg): 25 Energy Needs - Upper Range (kCal/kg): 30 Lower Limit kCal/kg (kCals): 1,750 Upper Limit kCal/kg (kCals): 2,100 Lower Limit Protein Factor (Grams per Kg): 1.5 Upper Limit Protein Factor (Grams per Kg): 1.8 Lower Protein Needs (Protein): 105 Upper Protein Needs (Protein): 126 Fluid Factor (ml/kg): 30 Estimated Fluid Needs (ml): 2,100 Dietitian Reviewed in Medical Record: Current diet, Curent medications, Intake & Output, Labs, Medical history Diet Order: Regular, Mech Soft w/ gravy in comment line Oral Diet Intake Amount: Good 75-90% Objective Comments: Hgb A1C 6.1, AccuCheck 73 LBM 11/18 Feeding - Current PO Supplement Current Supplement: Glucerna Shake Current Frequency of Supplement: Three times a day (x2 per meal) Current kCals Provided by Supplement: 220 Current Protein Provided by Supplement: 10 Assessment Assessment: Pt's PO intake has improved for most meals but he continues to refuse some. Usually eats about 50-75% of his meals. He's getting Glucerna Shakes x2 TID for added nutrition. Current diet order states Mechanical Soft w/ chopped meats and gravy. ST evaluation reviewed, they okayed regular, thin liquids. Pt is edentulous. A regular diet is appropriate for this pt. A1C and AccuChecks reviewed. Continue Glucerna Shakes x2 TID. Please continue to encourage pt to eat his meals and drink his oral nutritional supplements. Dietitian following. Recommendations: 1. Continue Regular diet. 2. Continue Glucerna Shakes x2 TID. Dietitian to Monitor: Lab values, Supplement acceptance, Intake & Output, Diet tolerance, Weight change, PO Intake, Medical course
[2017-11-25] MEDS ORDERED: Haloperidol Inj 5 MG/ML Ampul ONE (18:59)
[2017-11-25] MEDS ORDERED: Haloperidol Inj 5 MG/ML Ampul IM STA (19:08)
[2017-11-26] MEDS: Insulin NovoLOG Aspart Correctional Sugar Inj SQ SCH ×5 (05:25→21:38)
[2017-11-26] MEDS: Gabapentin 400 MG Capsule PO SCH ×2 (09:04→21:39)
[2017-11-26] MEDS: QUEtiapine 25 MG Tablet PO SCH ×2 (09:05→21:39)
[2017-11-26] MEDS: levETIRAcetam 500 MG Tablet PO SCH ×2 (11:53→23:46)
--- NOTE | 2017-11-26 16:19 | P.PNPSY ---
Subjective Chief Complaint: - Remarks: Patient seen for follow up, chart reviewed. Discussion nursing staff reported patient had required ETO last evening. Patient was found sitting on hospital bed, states feeling "good", denies any physical complaints, states tolerating medications well, adequate bowel movements, continues with baseline confusion. Patient at times noted to have episodes of irritability and requires redirection. Review of Systems All other systems reviewed negative except as stated in HPI Mental Status Examination Appearance: Appropriate Consciousness: Alert (Wearing only a diaper) Orientation: Person, Place Motor Activity: Normal gait Speech: Other Language: Adequate Fund of Knowledge: Poor Attention and Concentration: Inadequate Memory: Impaired Mood: Good Affect: Appropriate Thought Process & Associations: Other ([place]) Thought Content: Appropriate Hallucination Type: None Delusion Type: None Suicidal Ideation: No Suicidal Plan: No Suicidal Intention: No Homicidal Ideation: No Homicidal Plan: No Homicidal Intention: No Insight: Poor Judgment: Poor Assessment and Plan - Assessment (1) Dementia with behavioral disturbance Code(s): F03.91 - Unspecified dementia with behavioral disturbance Status: Acute - Plan Plan: Patient has had continued episodes of agitation recently which tend to occur in the evening. Will increase quetiapine to 25mg/25mg/100mg/25mg for mood stabilization. Continue rest of medications, continue to monitor mood and behavior. Discharge planning in progress. Justification for Continued Inpatient Stay: At risk of further decompensation a lower level care. (1) Dementia with behavioral disturbance Qualifiers: Dementia type: Alzheimer's disease Alzheimer's disease onset: other onset Qualified Code(s): G30.8 - Other Alzheimer's disease; F02.81 - Dementia in other diseases classified elsewhere with behavioral disturbance
[2017-11-26] MEDS: Haloperidol Inj 5 MG/ML Ampul IM PRN (19:55)
[2017-11-27] MEDS: Insulin NovoLOG Aspart Correctional Sugar Inj SQ SCH ×5 (03:07→22:29)
[2017-11-27] MEDS: QUEtiapine 25 MG Tablet PO SCH ×3 (08:19→21:34)
[2017-11-27] MEDS: Gabapentin 400 MG Capsule PO SCH ×2 (08:19→21:34)
[2017-11-27] MEDS: levETIRAcetam 500 MG Tablet PO SCH ×2 (09:54→22:28)
--- NOTE | 2017-11-27 12:04 | P.TTN ---
- Patient Problems Problems: 1. Discharge planning 2. Medication compliance 3. Knowledge deficit 4. Lack of coping skills - Progress Toward Goals Provider Present: Dr. Ashely Hernandez Provider Input: 11/26/2017' patient is less agitated, medication stablization still be address. 11/25/2017; patient has had to be given ETO's during the evening time, redirect with aggressive behavior. Patient has been stable psych for the last week; however he has recently had an altered mental status. : Pt continues to be stable, Angie continues to search for placement. Brent to follow-up with legal department issues. Nurse(s) Present: ABIMAEL Blevins, Nurse Input: 11/26/2017; patient has unpredictable moods, requires redirections , he is taking his medication and eating meals. 11/25/2017; patient's behavior is extremely unpredictable, require redirection and ETO's. Per nurse patient had to be ETO, due to aggressive behavior, patient was unable and extremely difficult to verbally redirect. 11/19/17: Per nurse, Vishnu; pt has had no documentable behaviors, he is re-directable. Psychiatric Counselors Present: Angie Velasquez [facility] Psychiatric Therapist Input: 11/26/2017 counselor continues to recall snf to update acceptance status for appropriate dc planning. 11/25/2017 Counselor will continue faxing packages to SNF skilling placement. Counselor will continue skilling skill nursing placement for an appropriate hospital discharge. Angie continuing to f/u with snf placement. Group Spec/RT/OT/AARON Present: Tamiko Godoy, TERESA, GALEN Gardner, Obinna Johnson, OT, GALEN Menezes Group Spec/RT/OT/AARON Input: 11/26/2017 per RT patient has been unable due to physical limitations participate with groups and activities. 11/25/2017; per RT patient has been unable to physically or mentally participate with groups/ activities. Per RT patient has been unable to appropriately participate with groups or activities. 11/19/17: Pt has been unable to tolerate groups. Occupational Therapist Input: 11/18/17: Pt continues to require physical assistance to complete ADLS, pt is not currently receiving skilled occupational therapy services, assistance is provided by other staff (pt is 1:1 supervision; falls risk). Clinical Coordinator Input: Manda to follow-up with potential legal issues. - Discharge Plan Other (Patient will be dc to [facility] when linked) Angie is actively pursuing placement at appropriate snf. - Documentation Scribe: Obinna Johnson MS, OTR Teaching Recipient: Patient
[2017-11-27] MEDS: QUEtiapine 100 MG Tablet PO SCH (16:18)
--- NOTE | 2017-11-27 16:39 | P.PNPSY ---
Subjective Chief Complaint: - Remarks: Patient seen for follow up, chart reviewed. Discussion nursing staff reported patient had ETO yesterday and required time in seclusion room but no behavioral disturbances this morning. Patient was found ambulating on the unit and at times wandering into other patient's rooms which patient required redirection. Patient continues to deny any physical complaints, reports mood being "good", continues to have confusion which patient was stating wanting to find his cats and calling out for them. Review of Systems All other systems reviewed negative except as stated in HPI Mental Status Examination Appearance: Appropriate Consciousness: Alert (Wearing only a diaper) Orientation: Person, Place Motor Activity: Normal gait Speech: Other Language: Adequate Fund of Knowledge: Poor Attention and Concentration: Inadequate Memory: Impaired Mood: Good Affect: Appropriate Thought Process & Associations: Other ([place]) Thought Content: Appropriate Hallucination Type: None Delusion Type: None Suicidal Ideation: No Suicidal Plan: No Suicidal Intention: No Homicidal Ideation: No Homicidal Plan: No Homicidal Intention: No Insight: Poor Judgment: Poor Assessment and Plan - Assessment (1) Dementia with behavioral disturbance Code(s): F03.91 - Unspecified dementia with behavioral disturbance Status: Acute - Plan Plan: Patient continues with occasional episodes of irritability which he requires redirection. No ETOs or agitation since this morning, will continue current medication. Will continue to monitor mood and behavior. Discharge planning in progress. Justification for Continued Inpatient Stay: At risk of further decompensation a lower level care. (1) Dementia with behavioral disturbance Qualifiers: Dementia type: Alzheimer's disease Alzheimer's disease onset: other onset Qualified Code(s): G30.8 - Other Alzheimer's disease; F02.81 - Dementia in other diseases classified elsewhere with behavioral disturbance
[2017-11-28] MEDS: Insulin NovoLOG Aspart Correctional Sugar Inj SQ SCH ×6 (04:30→20:18)
[2017-11-28] MEDS: QUEtiapine 25 MG Tablet PO SCH ×3 (11:11→20:17)
[2017-11-28] MEDS: levETIRAcetam 500 MG Tablet PO SCH ×2 (11:12→21:57)
[2017-11-28] MEDS: Gabapentin 400 MG Capsule PO SCH ×2 (11:12→20:17)
--- NOTE | 2017-11-28 11:39 | P.PNPSY ---
Subjective Chief Complaint: - Remarks: Patient seen for follow, chart reviewed. Discussion nursing staff reported the patient did not receive any ETO's yesterday and doing much better. Patient was found sitting in the [facility] chair noted B, cooperative smiling and in good spirits patient denies any physical complaints at this time said he is feeling "good" stating that he just sitting in bed watching. He denies any perceptional service of delusions continues with baseline confusion. Review of Systems All other systems reviewed negative except as stated in HPI Mental Status Examination Appearance: Appropriate Consciousness: Alert (Wearing only a diaper) Orientation: Person, Place Motor Activity: Normal gait Speech: Other Language: Adequate Fund of Knowledge: Poor Attention and Concentration: Inadequate Memory: Impaired Mood: Good Affect: Appropriate Thought Process & Associations: Other ([place]) Thought Content: Appropriate Hallucination Type: None Delusion Type: None Suicidal Ideation: No Suicidal Plan: No Suicidal Intention: No Homicidal Ideation: No Homicidal Plan: No Homicidal Intention: No Insight: Poor Judgment: Poor Assessment and Plan - Assessment (1) Dementia with behavioral disturbance Code(s): F03.91 - Unspecified dementia with behavioral disturbance Status: Acute - Plan Plan: Patient has not had any recurrence of agitation or behavioral dyscontrol recently, has been redirectable at times but compliant with treatment and pleasant. We will continue current treatment. We will continue to monitor mood and behavior. Discharge planning in progress. Justification for Continued Inpatient Stay: At risk of further decompensation a lower level of care. (1) Dementia with behavioral disturbance Qualifiers: Dementia type: Alzheimer's disease Alzheimer's disease onset: other onset Qualified Code(s): G30.8 - Other Alzheimer's disease; F02.81 - Dementia in other diseases classified elsewhere with behavioral disturbance
[2017-11-28] MEDS: QUEtiapine 100 MG Tablet PO SCH (17:06)
[2017-11-29] MEDS: Gabapentin 400 MG Capsule PO SCH ×2 (10:05→21:53)
[2017-11-29] MEDS: QUEtiapine 25 MG Tablet PO SCH ×3 (10:05→21:53)
[2017-11-29] MEDS: levETIRAcetam 500 MG Tablet PO SCH ×2 (11:30→21:53)
[2017-11-29] MEDS: Insulin NovoLOG Aspart Correctional Sugar Inj SQ SCH ×3 (12:25→20:34)
--- NOTE | 2017-11-29 16:12 | P.PNPSY ---
Subjective Chief Complaint: - Remarks: Patient seen for follow up; chart reviewed. Discussion with nursing staff reported that patient has been calm and pleasant throughout the day, eating well , no behavioral issues. Patient was found lying hospital bed noted B, cooperative. Patient state he is feeling "good" stating [place] cat scratching his back continues with baseline confusion. Patient denies any physical complaints at this time, reports eating and drinking well, denies any perceptual disturbances, SI or HI. Review of Systems All other systems reviewed negative except as stated in HPI Mental Status Examination Appearance: Appropriate Consciousness: Alert (Wearing only a diaper) Orientation: Person, Place Motor Activity: Normal gait Speech: Other Language: Adequate Fund of Knowledge: Poor Attention and Concentration: Inadequate Memory: Impaired Mood: Good Affect: Appropriate Thought Process & Associations: Other ([place]) Thought Content: Appropriate Hallucination Type: None Delusion Type: None Suicidal Ideation: No Suicidal Plan: No Suicidal Intention: No Homicidal Ideation: No Homicidal Plan: No Homicidal Intention: No Insight: Poor Judgment: Poor Assessment and Plan - Assessment (1) Dementia with behavioral disturbance Code(s): F03.91 - Unspecified dementia with behavioral disturbance Status: Acute - Plan Plan: Patient with no recent behavioral disturbances, or agitation, has been calm pleasant with staff. We will continue current treatment. We will continue to monitor mood and behavior. This was planning a progress. Justification for Continued Inpatient Stay: At risk for decompensation a lower level of care. (1) Dementia with behavioral disturbance Qualifiers: Dementia type: Alzheimer's disease Alzheimer's disease onset: other onset Qualified Code(s): G30.8 - Other Alzheimer's disease; F02.81 - Dementia in other diseases classified elsewhere with behavioral disturbance
[2017-11-29] MEDS: QUEtiapine 100 MG Tablet PO SCH (19:38)
[2017-11-30] MEDS: Insulin NovoLOG Aspart Correctional Sugar Inj SQ SCH ×5 (04:21→20:15)
[2017-11-30] MEDS: Gabapentin 400 MG Capsule PO SCH ×2 (08:28→20:16)
[2017-11-30] MEDS: QUEtiapine 25 MG Tablet PO SCH ×3 (08:29→20:16)
[2017-11-30] MEDS: levETIRAcetam 500 MG Tablet PO SCH ×2 (12:12→22:38)
--- NOTE | 2017-11-30 16:13 | P.PNPSY ---
Subjective Chief Complaint: - Remarks: Patient seen for follow-up, chart reviewed. Discussion with nursing staff reported the patient doing well, had some difficulty with sleeping less evening and napping during the day but no behavioral issues. Patient was found sitting hospital bed noted to be calm, cooperative. Patient reports feeling good, no behavioral changes, no changes in mood, reports eating and drinking well without difficulty or bowel movement. Patient has been cooperative with staff. Review of Systems All other systems reviewed negative except as stated in HPI Mental Status Examination Appearance: Appropriate Consciousness: Alert (Wearing only a diaper) Orientation: Person, Place Motor Activity: Normal gait Speech: Other Language: Adequate Fund of Knowledge: Poor Attention and Concentration: Inadequate Memory: Impaired Mood: Good Affect: Appropriate Thought Process & Associations: Other ([place]) Thought Content: Appropriate Hallucination Type: None Delusion Type: None Suicidal Ideation: No Suicidal Plan: No Suicidal Intention: No Homicidal Ideation: No Homicidal Plan: No Homicidal Intention: No Insight: Poor Judgment: Poor Assessment and Plan - Assessment (1) Dementia with behavioral disturbance Code(s): F03.91 - Unspecified dementia with behavioral disturbance Status: Acute - Plan Plan: Patient continues with good behavioral control, no recent outbursts or behavioral issues. We will continue current treatment. We will continue to monitor with behavior. Discharge planning a progress. Justification for Continued Inpatient Stay: At risk of further decompensation a lower level of care. (1) Dementia with behavioral disturbance Qualifiers: Dementia type: Alzheimer's disease Alzheimer's disease onset: other onset Qualified Code(s): G30.8 - Other Alzheimer's disease; F02.81 - Dementia in other diseases classified elsewhere with behavioral disturbance
[2017-11-30] MEDS: QUEtiapine 100 MG Tablet PO SCH (17:54)
[2017-12-01] MEDS: Insulin NovoLOG Aspart Correctional Sugar Inj SQ SCH ×4 (03:16→21:00)
[2017-12-01] MEDS: Gabapentin 400 MG Capsule PO SCH ×2 (08:44→21:14)
[2017-12-01] MEDS: QUEtiapine 25 MG Tablet PO SCH ×3 (08:44→21:14)
[2017-12-01] MEDS: levETIRAcetam 500 MG Tablet PO SCH ×2 (13:36→22:51)
--- NOTE | 2017-12-01 15:43 | P.TTN ---
- Patient Problems Problems: 1. Discharge planning 2. Medication compliance 3. Knowledge deficit 4. Lack of coping skills - Progress Toward Goals Provider Present: Dr. Ashely Hernandez Provider Input: 12/01/17: pt continues to demonstrate more consistent behaviors, reduced agitation, continuing medical stabilization, progress noted by Psychiatrist. Continuation of search for appropriate placement. . 11/26/2017' patient is less agitated, medication stablization still be address. 11/25/2017 ; patient has had to be given ETO's during the evening time, redirect with aggressive behavior. Patient has been stable psych for the last week; however he has recently had an altered mental status. 11/19/17: Pt continues to be stable, Angie continues to search for placement. Brent to follow -up with legal department issues. Nurse(s) Present: Felicity RN, Nurse Input: 11/26/2017; patient has unpredictable moods, requires redirections , he is taking his medication and eating meals. 11/25/2017; patient's behavior is extremely unpredictable, require redirection and ETO's. Per nurse patient had to be ETO, due to aggressive behavior, patient was unable and extremely difficult to verbally redirect. 11/19/17: Per nurse, Vishnu; pt has had no documentable behaviors, he is re-directable. Psychiatric Counselors Present: Nicolasa Pérez LCSW, Angie Velasquez, [facility] Psychiatric Therapist Input: 11/26/2017 counselor continues to recall snf to update acceptance status for appropriate dc planning. 11/25/2017 Counselor will continue faxing packages to SNF skilling placement. Counselor will continue skilling skill nursing placement for an appropriate hospital discharge. Angie continuing to f/u with snf placement. Group Spec/RT/OT/AARON Present: Tamiko Godoy, GPS, GALEN Gardner, Obinna Johnson, OT, GALEN Menezes Group Spec/RT/OT/AARON Input: 12/01/17: Pt has been unable to attend groups d/t physical limitations. 11/26/2017 per RT patient has been unable due to physical limitations participate with groups and activities. 11/25/2017; per RT patient has been unable to physically or mentally participate with groups/ activities. Per RT patient has been unable to appropriately participate with groups or activities. 11/19/17: Pt has been unable to tolerate groups. Occupational Therapist Input: 11/18/17: Pt continues to require physical assistance to complete ADLS, pt is not currently receiving skilled occupational therapy services, assistance is provided by other staff (pt is 1:1 supervision; falls risk). Clinical Coordinator Input: Manda to follow-up with potential legal issues. - Discharge Plan Other (Patient will be dc to skill retirement when linked) Angie is actively pursuing placement at appropriate snf. - Documentation Scribe: Obinna Johnson MS, OTR Teaching Recipient: Patient
--- NOTE | 2017-12-01 16:18 | P.PNPSY ---
Subjective Chief Complaint: - Remarks: Patient seen for follow, chart reviewed. Discussion nursing staff reported the patient has a compliant with treatment, doing well, no behavioral issues. Patient was found heavily on unit with sitter, was able to converse appropriately, spent time talking about his past hobby of wrestling alligators which patient please seem to talk about. Patient denies any physical complaints at this time noted to be in good spirits, denies any perceptional disturbances or delusions but continues with baseline confusion. Review of Systems All other systems reviewed negative except as stated in HPI Mental Status Examination Appearance: Appropriate Consciousness: Alert (Wearing only a diaper) Orientation: Person, Place Motor Activity: Normal gait Speech: Other Language: Adequate Fund of Knowledge: Poor Attention and Concentration: Inadequate Memory: Impaired Mood: Good Affect: Appropriate Thought Process & Associations: Other ([place]) Thought Content: Appropriate Hallucination Type: None Delusion Type: None Suicidal Ideation: No Suicidal Plan: No Suicidal Intention: No Homicidal Ideation: No Homicidal Plan: No Homicidal Intention: No Insight: Poor Judgment: Poor Assessment and Plan - Assessment (1) Dementia with behavioral disturbance Code(s): F03.91 - Unspecified dementia with behavioral disturbance Status: Acute - Plan Plan: Patient this time continues with baseline confusion but no behavioral disturbances has been appropriate with staff and compliant with treatment. We will continue to monitor mood and behavior. Discharge planning a progress. Justification for Continued Inpatient Stay: At risk of further decompensation a lower level of care. (1) Dementia with behavioral disturbance Qualifiers: Dementia type: Alzheimer's disease Alzheimer's disease onset: other onset Qualified Code(s): G30.8 - Other Alzheimer's disease; F02.81 - Dementia in other diseases classified elsewhere with behavioral disturbance
[2017-12-01] MEDS: QUEtiapine 100 MG Tablet PO SCH (17:19)
[2017-12-02] MEDS: Insulin NovoLOG Aspart Correctional Sugar Inj SQ SCH ×5 (05:14→20:09)
[2017-12-02] MEDS: QUEtiapine 25 MG Tablet PO SCH ×3 (08:50→20:09)
[2017-12-02] MEDS: Gabapentin 400 MG Capsule PO SCH ×2 (08:50→20:09)
[2017-12-02] MEDS: levETIRAcetam 500 MG Tablet PO SCH ×2 (10:18→23:37)
--- NOTE | 2017-12-02 10:22 | P.PNPSY ---
Subjective Chief Complaint: - Remarks: Patient seen for follow, chart reviewed. Discussion nursing staff reported the patient with no behavioral issues, has been compliant with staff and pleasant. Patient was found walking on the unit earlier, noted to be lying in bed with sitter alongside noted B, cooperative. Patient states that he is feeling "good " denies any perceptional services or delusions and denies any physical complaints. We will make nonsensical statements at times were continues with baseline confusion. Review of Systems All other systems reviewed negative except as stated in HPI Mental Status Examination Appearance: Appropriate Consciousness: Alert (Wearing only a diaper) Orientation: Person, Place Motor Activity: Normal gait Speech: Other Language: Adequate Fund of Knowledge: Poor Attention and Concentration: Inadequate Memory: Impaired Mood: Good Affect: Appropriate Thought Process & Associations: Other ([place]) Thought Content: Appropriate Hallucination Type: None Delusion Type: None Suicidal Ideation: No Suicidal Plan: No Suicidal Intention: No Homicidal Ideation: No Homicidal Plan: No Homicidal Intention: No Insight: Poor Judgment: Poor Assessment and Plan - Assessment (1) Dementia with behavioral disturbance Code(s): F03.91 - Unspecified dementia with behavioral disturbance Status: Acute - Plan Plan: Patient continues with baseline confusion, no behavioral disturbances, tolerated medications well,, cooperative with staff. Continue current treatment. We will continue to monitor mood and behavior. Discharge planning a progress. Justification for Continued Inpatient Stay: At risk of further decompensation a lower level of care (1) Dementia with behavioral disturbance Qualifiers: Dementia type: Alzheimer's disease Alzheimer's disease onset: other onset Qualified Code(s): G30.8 - Other Alzheimer's disease; F02.81 - Dementia in other diseases classified elsewhere with behavioral disturbance
--- NOTE | 2017-12-02 14:59 | P.DIET ---
Nutritional Evaluation Type of nutrition evaluation: follow-up Nutrition screening: [facility] [place] [place] Subjective Subjective Comments: Pt has no complaints of N/V/D/C. No trouble chewing/swallowing. Says he does not want the Glucerna Shakes anymore, but was agreeable to Ensure BID. He does state he's not eating that well currently, but then says he's hungry and eats 100% of his meals. Intake remains sporadic at times. Objective - Diagnosis Dementia with Behavioral Disturbance - Objective Body Weight Used for Calculations: IBW (70kg per previous admissions) Energy Needs - Lower Range (kCal/kg): 25 Energy Needs - Upper Range (kCal/kg): 30 Lower Limit kCal/kg (kCals): 1,750 Upper Limit kCal/kg (kCals): 2,100 Lower Limit Protein Factor (Grams per Kg): 1.5 Upper Limit Protein Factor (Grams per Kg): 1.8 Lower Protein Needs (Protein): 105 Upper Protein Needs (Protein): 126 Fluid Factor (ml/kg): 30 Estimated Fluid Needs (ml): 2,100 Dietitian Reviewed in Medical Record: Current diet, Curent medications, Intake & Output, Labs Diet Order: Regular Oral Diet Intake Amount: Good 75-90% Objective Comments: No updated wt since 11/20 LBM 11/29 Assessment Assessment: Pt remains on a Regular diet and has relatively good PO intake, although he still has days where his intake is poor or he refuses a meal. No N/V/D/C. He tells me he does not like the Glucerna Shakes anymore, but is willing to try Ensure since his PO intake is still so-so on some days. Pt wants to try chocolate Ensure. Continue current POC. Dietitian following. Recommendations: 1. Chocolate Ensure BID. 2. Continue current POC. Dietitian to Monitor: Lab values, Supplement acceptance, Intake & Output, Diet tolerance, Weight change, PO Intake, Medical course
[2017-12-02] MEDS: QUEtiapine 100 MG Tablet PO SCH (17:22)
[2017-12-02] MEDS: Haloperidol Inj 5 MG/ML Ampul IM PRN (19:38)
[2017-12-03] MEDS: Insulin NovoLOG Aspart Correctional Sugar Inj SQ SCH ×5 (02:18→20:11)
[2017-12-03] MEDS: Gabapentin 400 MG Capsule PO SCH ×2 (09:04→20:00)
[2017-12-03] MEDS: QUEtiapine 25 MG Tablet PO SCH ×3 (09:05→20:10)
[2017-12-03] MEDS: levETIRAcetam 500 MG Tablet PO SCH (15:33)
--- NOTE | 2017-12-03 16:26 | P.PNPSY ---
Subjective Chief Complaint: - Remarks: Patient seen and examined in coverage for Dr. Hernandez. Chart reviewed. Case discussed with RN who reports patient was agitated overnight and received Haldol p.r.n.. However, nurse notes that this may have been situational as patient reportedly had a poor rapport with his sitter at the time. I find the patient in the hallway. He has his shirt pulled up over his midriff and his hands twisted in his shirt. When I ask what he is doing, he replies, "just covering up my shield, the boat." Denies SI/HI. Denies AVH. No side effects from meds "they're good." No physical complaints. Vital Signs Temp Pulse Resp BP Pulse Ox 12/03/17 06:41 97.4 F L 69 16 141/75 H 97 12/02/17 17:39 97.3 F L 65 120/72 Intake and Output 12/03/17 12/03/17 12/03/17 06:59 14:59 22:59 Other: # Voids 2 Date of Last Bowel Movement 11/18/17 Weight 90.5 kg Laboratory Results - last 24 hr 12/02/17 12/03/17 19:45 06:14 POC Glucose 100 79 Labs reviewed. Review of Systems unobtainable due to mental condition Mental Status Examination Appearance: Appropriate Consciousness: Alert (Wearing only a diaper) Orientation: Person, Place (hospital) Motor Activity: Normal gait Speech: Unremarkable Language: Other ([place]) Fund of Knowledge: Poor Attention and Concentration: Inadequate Memory: Impaired Mood: Other (Calm) Affect: Blunt Thought Process & Associations: Other ([place]) Thought Content: Other ([place] thought) Hallucination Type: None Delusion Type: None Suicidal Ideation: No Suicidal Plan: No Suicidal Intention: No Homicidal Ideation: No Homicidal Plan: No Homicidal Intention: No Insight: Poor Judgment: Poor Assessment and Plan - Assessment (1) Dementia with behavioral disturbance Code(s): F03.91 - Unspecified dementia with behavioral disturbance Status: Acute - Plan Plan: Continue current Seroquel dosing as ordered as it sounds like agitation overnight was situational, but to consider titrating the dose if agitation persists. Continue to monitor on the inpatient unit. Continue other medications and care as ordered. Justification for Continued Inpatient Stay: Risk for decompensation and less restrictive environment. Discharge Planning: Per Dr. Hernandez (1) Dementia with behavioral disturbance Qualifiers: Dementia type: Alzheimer's disease Alzheimer's disease onset: other onset Qualified Code(s): G30.8 - Other Alzheimer's disease; F02.81 - Dementia in other diseases classified elsewhere with behavioral disturbance
[2017-12-03] MEDS: QUEtiapine 100 MG Tablet PO SCH (18:32)
[2017-12-04] MEDS: levETIRAcetam 500 MG Tablet PO SCH ×3 (00:32→21:44)
[2017-12-04] MEDS: Insulin NovoLOG Aspart Correctional Sugar Inj SQ SCH ×5 (05:33→21:44)
[2017-12-04] MEDS: Gabapentin 400 MG Capsule PO SCH ×2 (09:02→20:24)
[2017-12-04] MEDS: QUEtiapine 25 MG Tablet PO SCH ×3 (09:02→20:24)
--- NOTE | 2017-12-04 16:15 | P.PNPSY ---
Subjective Chief Complaint: - Remarks: Patient seen for follow up; chart reviewed. Discussion with nursing staff reported that patient has been wandering into other patient's room requiring redirection. Patient found sitting on hospital bed, noted to be calm and cooperative. Patient said he slept well, stated mood has been "good" denying any physical complaints at this time, although to be somewhat disorganized later after the interview as he was attempting to go into the bathroom and wandering into the kimble. Patient denies any perceptional services or delusions and continues with baseline confusion. Review of Systems All other systems reviewed negative except as stated in HPI Mental Status Examination Appearance: Appropriate Consciousness: Alert (Wearing only a diaper) Orientation: Person, Place (hospital) Motor Activity: Normal gait Speech: Unremarkable Language: Other ([place]) Fund of Knowledge: Poor Attention and Concentration: Inadequate Memory: Impaired Mood: Other (Calm) Affect: Blunt Thought Process & Associations: Other ([place]) Thought Content: Other ([place]overty [place] thought) Hallucination Type: None Delusion Type: None Suicidal Ideation: No Suicidal Plan: No Suicidal Intention: No Homicidal Ideation: No Homicidal Plan: No Homicidal Intention: No Insight: Poor Judgment: Poor Assessment and Plan - Assessment (1) Dementia with behavioral disturbance Code(s): F03.91 - Unspecified dementia with behavioral disturbance Status: Acute - Plan Plan: Patient continues with baseline confusion, require redirection, continues require one-to-one observation for safety. We will continue to monitor mood and behavior. Discharge planning in progress. Justification for Continued Inpatient Stay: At risk of further decompensation a lower level of care. (1) Dementia with behavioral disturbance Qualifiers: Dementia type: Alzheimer's disease Alzheimer's disease onset: other onset Qualified Code(s): G30.8 - Other Alzheimer's disease; F02.81 - Dementia in other diseases classified elsewhere with behavioral disturbance
[2017-12-04] MEDS: QUEtiapine 100 MG Tablet PO SCH (16:40)
[2017-12-04] MEDS ORDERED: Haloperidol Inj 5 MG/ML Ampul ONE (17:59)
[2017-12-04] MEDS ORDERED: Haloperidol Inj 5 MG/ML Ampul IM ONE (18:30)
[2017-12-05] MEDS: Insulin NovoLOG Aspart Correctional Sugar Inj SQ SCH ×5 (02:57→20:11)
[2017-12-05] MEDS: Gabapentin 400 MG Capsule PO SCH ×2 (08:24→21:34)
[2017-12-05] MEDS: QUEtiapine 25 MG Tablet PO SCH ×3 (08:24→21:34)
[2017-12-05] MEDS: levETIRAcetam 500 MG Tablet PO SCH ×2 (11:09→21:34)
[2017-12-05] MEDS: QUEtiapine 100 MG Tablet PO SCH (17:05)
--- NOTE | 2017-12-05 18:43 | P.PNPSY ---
Subjective Chief Complaint: - Remarks: Patient seen for follow up; chart review. Discussion with nursing staff reported that patient received ETO last evening, noted to be yelling this morning but redirectible. Patient found lying on hospital bed, noted to be calm and cooperative. Continues with baseline confusion, denies any perceptual disturbances or delusions. Continues to require assistance with ADLs. Review of Systems All other systems reviewed negative except as stated in HPI Mental Status Examination Appearance: Appropriate Consciousness: Alert (Wearing only a diaper) Orientation: Person, Place (hospital) Motor Activity: Normal gait Speech: Unremarkable Language: Other ([place]) Fund of Knowledge: Poor Attention and Concentration: Inadequate Memory: Impaired Mood: Other (Calm) Affect: Blunt Thought Process & Associations: Other ([place]) Thought Content: Other ([place]overty of thought) Hallucination Type: None Delusion Type: None Suicidal Ideation: No Suicidal Plan: No Suicidal Intention: No Homicidal Ideation: No Homicidal Plan: No Homicidal Intention: No Insight: Poor Judgment: Poor Assessment and Plan - Assessment (1) Dementia with behavioral disturbance Code(s): F03.91 - Unspecified dementia with behavioral disturbance Status: Acute - Plan Plan: Patient continues with baseline confusion, had become irritable yesterday requiring ETO but no physical aggressive behavior. Patient today doing well, redirectible. Continue current treatment, continue to monitor mood and behavior. Discharge planning in progress. Justification for Continued Inpatient Stay: At risk for further decompensation at lower level of care. (1) Dementia with behavioral disturbance Qualifiers: Dementia type: Alzheimer's disease Alzheimer's disease onset: other onset Qualified Code(s): G30.8 - Other Alzheimer's disease; F02.81 - Dementia in other diseases classified elsewhere with behavioral disturbance
[2017-12-06] MEDS: levETIRAcetam 500 MG Tablet PO SCH ×3 (02:32→21:50)
[2017-12-06] MEDS: Insulin NovoLOG Aspart Correctional Sugar Inj SQ SCH ×5 (05:58→20:38)
[2017-12-06] MEDS: Gabapentin 400 MG Capsule PO SCH ×2 (08:01→21:50)
[2017-12-06] MEDS: QUEtiapine 25 MG Tablet PO SCH ×3 (08:01→21:50)
[2017-12-06] MEDS: QUEtiapine 100 MG Tablet PO SCH (16:18)
--- NOTE | 2017-12-06 19:14 | P.PNPSY ---
Subjective Chief Complaint: - Remarks: Patient was seen and case discussed with nursing. Patient is pleasant and cooperative with exam. Compliant with medications per nursing. Per nursing, between the hours informed 5 he does become irritable and loud. He remains confused with poor insight Mental Status Examination Appearance: Appropriate Consciousness: Alert (Wearing only a diaper) Orientation: Person, Place (hospital) Motor Activity: Normal gait Speech: Unremarkable Language: Other ([place]) Fund of Knowledge: Poor Attention and Concentration: Inadequate Memory: Impaired Mood: Other (Calm) Affect: Blunt Thought Process & Associations: Other ([place]) Thought Content: Other ([place]overty [place] thought) Hallucination Type: None Delusion Type: None Suicidal Ideation: No Suicidal Plan: No Suicidal Intention: No Homicidal Ideation: No Homicidal Plan: No Homicidal Intention: No Insight: Poor Judgment: Poor Assessment and Plan - Assessment (1) Dementia with behavioral disturbance Code(s): F03.91 - Unspecified dementia with behavioral disturbance Status: Acute - Plan Plan: Continue current treatment plan Justification for Continued Inpatient Stay: Patient would decompensate in a less restrictive setting (1) Dementia with behavioral disturbance Qualifiers: Dementia type: Alzheimer's disease Alzheimer's disease onset: other onset Qualified Code(s): G30.8 - Other Alzheimer's disease; F02.81 - Dementia in other diseases classified elsewhere with behavioral disturbance
[2017-12-07] MEDS: Insulin NovoLOG Aspart Correctional Sugar Inj SQ SCH ×5 (02:56→23:33)
[2017-12-07] MEDS: QUEtiapine 25 MG Tablet PO SCH ×3 (08:04→23:33)
[2017-12-07] MEDS: Gabapentin 400 MG Capsule PO SCH ×2 (08:04→23:33)
[2017-12-07] MEDS: levETIRAcetam 500 MG Tablet PO SCH ×2 (10:25→23:32)
--- NOTE | 2017-12-07 14:51 | P.PNPSY ---
Subjective Chief Complaint: - Remarks: Patient was seen and case discussed with nursing. Patient is joking during the interview. He has not had any outbursts as of yet. He is oriented 1 with poor eye contact. Compliant with medications Mental Status Examination Appearance: Appropriate Consciousness: Alert (Wearing only a diaper) Orientation: Person, Place (hospital) Motor Activity: Normal gait Speech: Unremarkable Language: Other ([place]) Fund of Knowledge: Poor Attention and Concentration: Inadequate Memory: Impaired Mood: Other (Calm) Affect: Blunt Thought Process & Associations: Other ([place]) Thought Content: Other (Poverty of thought) Hallucination Type: None Delusion Type: None Suicidal Ideation: No Suicidal Plan: No Suicidal Intention: No Homicidal Ideation: No Homicidal Plan: No Homicidal Intention: No Insight: Poor Judgment: Poor Assessment and Plan - Assessment (1) Dementia with behavioral disturbance Code(s): F03.91 - Unspecified dementia with behavioral disturbance Status: Acute - Plan Plan: Continue current treatment plan Justification for Continued Inpatient Stay: Patient would decompensate in a less restrictive setting (1) Dementia with behavioral disturbance Qualifiers: Dementia type: Alzheimer's disease Alzheimer's disease onset: other onset Qualified Code(s): G30.8 - Other Alzheimer's disease; F02.81 - Dementia in other diseases classified elsewhere with behavioral disturbance
[2017-12-07] MEDS: QUEtiapine 100 MG Tablet PO SCH (16:09)
[2017-12-08] MEDS: Insulin NovoLOG Aspart Correctional Sugar Inj SQ SCH ×4 (03:00→20:50)
[2017-12-08] MEDS: Gabapentin 400 MG Capsule PO SCH ×2 (08:59→20:50)
[2017-12-08] MEDS: QUEtiapine 25 MG Tablet PO SCH ×3 (09:00→20:50)
[2017-12-08] MEDS: levETIRAcetam 500 MG Tablet PO SCH ×2 (10:00→22:19)
[2017-12-08] MEDS: QUEtiapine 100 MG Tablet PO SCH (17:15)
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
[2017-12-09] MEDS: Insulin NovoLOG Aspart Correctional Sugar Inj SQ SCH ×5 (03:00→21:10)
[2017-12-09] MEDS: levETIRAcetam 500 MG Tablet PO SCH ×3 (10:03→22:45)
[2017-12-09] MEDS: Gabapentin 400 MG Capsule PO SCH ×3 (10:04→20:11)
[2017-12-09] MEDS: QUEtiapine 25 MG Tablet PO SCH ×4 (10:04→20:12)
--- NOTE | 2017-12-09 11:05 | P.PNPSY ---
Subjective Chief Complaint: - Remarks: Patient seen for follow, chart reviewed. Discussion nursing staff reported the patient had not required any ETO's yesterday, and requires some redirection from irritability but no agitation. Patient was found sitting in hospital bed eating his breakfast noted B, cooperative. Patient states that his mood has been "okay", states that he was hearing crying earlier, reports having good appetite, denying physical pain at this time denying any perceptional disturbances or delusions. Patient continues with baseline confusion. Review of Systems All other systems reviewed negative except as stated in HPI Mental Status Examination Appearance: Appropriate Consciousness: Alert (Wearing only a diaper) Orientation: Person, Place (hospital) Motor Activity: Normal gait Speech: Unremarkable Language: Other ([place]) Fund of Knowledge: Poor Attention and Concentration: Inadequate Memory: Impaired Mood: Other (Calm) Affect: Blunt Thought Process & Associations: Other ([place]) Thought Content: Other ([place]overty of thought) Hallucination Type: None Delusion Type: None Suicidal Ideation: No Suicidal Plan: No Suicidal Intention: No Homicidal Ideation: No Homicidal Plan: No Homicidal Intention: No Insight: Poor Judgment: Poor Assessment and Plan - Assessment (1) Dementia with behavioral disturbance Code(s): F03.91 - Unspecified dementia with behavioral disturbance Status: Acute - Plan Plan: Patient continues with confusion, require redirection but not having had any behavioral disturbances or agitation recently. We will continue current treatment. Continue to monitor mood and behavior. Discharge planning in progress. Justification for Continued Inpatient Stay: At risk of further decompensation a lower level of care. (1) Dementia with behavioral disturbance Qualifiers: Dementia type: Alzheimer's disease Alzheimer's disease onset: other onset Qualified Code(s): G30.8 - Other Alzheimer's disease; F02.81 - Dementia in other diseases classified elsewhere with behavioral disturbance
--- NOTE | 2017-12-09 16:10 | P.DIET ---
Nutritional Evaluation Type of nutrition evaluation: follow-up Nutrition screening: [facility] [place] ([facility] [place]nutrition) Screening comments: 10/17 [facility] [place] Malnutrition Subjective Barriers to Nutrition: Refuses to eat at times Oral Diet Tolerance Assessment Indicates: Edentulous Subjective Comments: Pt visited after lunch today and he was sleeping soundly. PO intake 30% for breakfast and 50% for lunch. Objective - Diagnosis Dementia with Behavioral Disturbance - Objective Body Mass Index: 31.1 [place] body weight: 154 kg (previous admission Ht 172.7cm) % IBW: 129 Body Weight Used for Calculations: IBW (70kg per previous admissions) Energy Needs - Lower Range (kCal/kg): 25 Energy Needs - Upper Range (kCal/kg): 30 Lower Limit kCal/kg (kCals): 1,750 Upper Limit kCal/kg (kCals): 2,100 Lower Limit Protein Factor (Grams per Kg): 1.5 Upper Limit Protein Factor (Grams per Kg): 1.8 Lower Protein Needs (Protein): 105 Upper Protein Needs (Protein): 126 Fluid Factor (ml/kg): 30 Estimated Fluid Needs (ml): 2,100 Dietitian Reviewed in Medical Record: Current diet, Curent medications, Intake & Output, Labs Diet Order: Regular Oral Diet Intake Amount: Fair 50-75% Objective Comments: Glucose 124 Novolog Feeding - Current PO Supplement Current Supplement: Ensure Original Current Frequency of Supplement: Twice daily (x2 per meal) Current kCals Provided by Supplement: 250 Current Protein Provided by Supplement: 9 Assessment Assessment: Pt remains on a Regular diet and has variable PO intake 0-100%. Wt. is stable. Previous visit pt reported he did not care for the Glucertc [place] and the Dietitian, at that time, changed the oral supplement to Ensure BID. Pt has a history of Morbid Obesity s/p Gastric Bypass(date for this procedure is not known), requiring increased needs for protein and bariatric vitamins, including a MVM, B-complex and Calcium. Hospital formulary does not include bariatric vitamins, therefore, rec Theragran M, B-Complex and Calcium w/D supplements daily. Plan to include protein dense foods/liquids. Increase Ensure BID to TID. Monitor glucose closely. Dietitian following. Recommendations: 1. Rec Theragran M, B-Complex and Calcium w/D supplements daily 2. Plan to include protein dense foods/liquids 3. Increase Ensure BID to TID 4. Monitor glucose closely 5. Dietitian following Dietitian to Monitor: Lab values, Glucose level, Supplement acceptance, Intake & Output, Diet tolerance, Weight change, PO Intake, Medical course
[2017-12-09] MEDS: QUEtiapine 100 MG Tablet PO SCH (17:35)
[2017-12-10] MEDS: Insulin NovoLOG Aspart Correctional Sugar Inj SQ SCH ×4 (03:17→20:37)
[2017-12-10] MEDS ORDERED: Haloperidol Inj 5 MG/ML Ampul ONE (07:19)
[2017-12-10] MEDS ORDERED: Haloperidol Inj 5 MG/ML Ampul IM STA (08:11)
[2017-12-10] MEDS: Gabapentin 400 MG Capsule PO SCH ×2 (11:07→20:38)
[2017-12-10] MEDS: QUEtiapine 25 MG Tablet PO SCH ×3 (11:08→20:36)
[2017-12-10] MEDS: levETIRAcetam 500 MG Tablet PO SCH ×2 (13:54→23:00)
--- NOTE | 2017-12-10 18:06 | P.PNPSY ---
Subjective Chief Complaint: - Remarks: Patient seen for follow up; chart reviewed. Discussion with nursing staff reported that patient as required ETO this morning as he was agitated, but has slept thereafter. Patient was found sitting in hospital chair very somnolent after ETO, superficially cooperative his patient was too somnolent to participate in interview today. Patient later seen heavily on unit noted B, cooperative. No further episodes of agitation or irritability, no physical complaints and continues with baseline confusion. Review of Systems All other systems reviewed negative except as stated in HPI Mental Status Examination Appearance: Appropriate Consciousness: Somnolent Orientation: Person, Place (hospital) Motor Activity: Normal gait Speech: Unremarkable Language: Other ([place]) Fund of Knowledge: Poor Attention and Concentration: Inadequate Memory: Impaired Mood: Other (Calm) Affect: Blunt Thought Process & Associations: Other ([place]) Thought Content: Other (Poverty of thought) Hallucination Type: None Delusion Type: None Suicidal Ideation: No Suicidal Plan: No Suicidal Intention: No Homicidal Ideation: No Homicidal Plan: No Homicidal Intention: No Insight: Poor Judgment: Poor Assessment and Plan - Assessment (1) Dementia with behavioral disturbance Code(s): F03.91 - Unspecified dementia with behavioral disturbance Status: Acute - Plan Plan: Patient had episode of agitated this morning and as per nursing staff report was likely regarding patient wanted to have bowel movement. Patient appears to have episodes of agitation during this time and requires much redirection. We will continue current treatment. We will continue to monitor mood and behavior. Discharge planning in progress. Justification for Continued Inpatient Stay: At risk of further decompensation a lower level of care. (1) Dementia with behavioral disturbance Qualifiers: Dementia type: Alzheimer's disease Alzheimer's disease onset: other onset Qualified Code(s): G30.8 - Other Alzheimer's disease; F02.81 - Dementia in other diseases classified elsewhere with behavioral disturbance
[2017-12-11] MEDS: Insulin NovoLOG Aspart Correctional Sugar Inj SQ SCH ×5 (08:44→20:16)
[2017-12-11] MEDS: QUEtiapine 100 MG Tablet PO SCH ×2 (08:46→18:08)
[2017-12-11] MEDS: Gabapentin 400 MG Capsule PO SCH ×2 (08:48→21:10)
[2017-12-11] MEDS: levETIRAcetam 500 MG Tablet PO SCH ×2 (15:05→21:11)
[2017-12-11] MEDS: QUEtiapine 25 MG Tablet PO SCH ×3 (15:05→21:10)
[2017-12-11] MEDS ORDERED: Haloperidol Inj 5 MG/ML Ampul IM STA (17:12)
[2017-12-11] MEDS ORDERED: Haloperidol Inj 5 MG/ML Ampul ONE (17:12)
[2017-12-11] MEDS: Haloperidol Inj 5 MG/ML Ampul ONE ×2 (18:09→18:16)
--- NOTE | 2017-12-11 20:39 | P.PNPSY ---
Subjective Chief Complaint: - Remarks: Patient seen for follow up, chart reviewed. Discussion with nursing staff reported patient noted to be more irritable surrounding his bowel movements. Patient noted with sitter eating breakfast, calm and cooperative. Patient with baseline confusion, adequate nutrition, no physical complaints, no recent falls. Review of Systems All other systems reviewed negative except as stated in HPI Mental Status Examination Appearance: Appropriate Consciousness: Somnolent Orientation: Person, Place (hospital) Motor Activity: Normal gait Speech: Unremarkable Language: Other ([place]) Fund of Knowledge: Poor Attention and Concentration: Inadequate Memory: Impaired Mood: Other (Calm) Affect: Blunt Thought Process & Associations: Other ([place]) Thought Content: Other (Poverty of thought) Hallucination Type: None Delusion Type: None Suicidal Ideation: No Suicidal Plan: No Suicidal Intention: No Homicidal Ideation: No Homicidal Plan: No Homicidal Intention: No Insight: Poor Judgment: Poor Assessment and Plan - Assessment (1) Dementia with behavioral disturbance Code(s): F03.91 - Unspecified dementia with behavioral disturbance Status: Acute - Plan Plan: Patient noted wtih episodes of agitation regarding bowel movement, less episodes of agitation when provided attention and engaged. Continue current treatment , continue to monitor mood and behavior. Discharge planning in progress. Justification for Continued Inpatient Stay: At risk for further decompensation at lower level of care. (1) Dementia with behavioral disturbance Qualifiers: Dementia type: Alzheimer's disease Alzheimer's disease onset: other onset Qualified Code(s): G30.8 - Other Alzheimer's disease; F02.81 - Dementia in other diseases classified elsewhere with behavioral disturbance
[2017-12-12] MEDS: levETIRAcetam 500 MG Tablet PO SCH ×3 (02:04→20:55)
[2017-12-12] MEDS: Insulin NovoLOG Aspart Correctional Sugar Inj SQ SCH ×5 (02:04→20:32)
[2017-12-12] MEDS: QUEtiapine 25 MG Tablet PO SCH ×3 (08:41→20:55)
[2017-12-12] MEDS: Gabapentin 400 MG Capsule PO SCH ×2 (08:41→20:55)
[2017-12-12] MEDS: QUEtiapine 100 MG Tablet PO SCH (16:58)
--- NOTE | 2017-12-12 21:57 | P.PNPSY ---
Subjective Chief Complaint: - Remarks: Patient seen for follow, chart reviewed. Discussion nursing staff reported the patient had required ETO yesterday afternoon due to an episode of agitation. Patient had been asleep most of the morning seen later on unit noted to be concrete with baseline confusion denying any physical complaints, reporting eating and drinking well, reports his mood as being "good". Review of Systems All other systems reviewed negative except as stated in HPI Mental Status Examination Appearance: Appropriate Consciousness: Somnolent Orientation: Person, Place (hospital) Motor Activity: Normal gait Speech: Unremarkable Language: Other ([place]) Fund of Knowledge: Poor Attention and Concentration: Inadequate Memory: Impaired Mood: Other (Calm) Affect: Blunt Thought Process & Associations: Other ([place]) Thought Content: Other (Poverty of thought) Hallucination Type: None Delusion Type: None Suicidal Ideation: No Suicidal Plan: No Suicidal Intention: No Homicidal Ideation: No Homicidal Plan: No Homicidal Intention: No Insight: Poor Judgment: Poor Assessment and Plan - Assessment (1) Dementia with behavioral disturbance Code(s): F03.91 - Unspecified dementia with behavioral disturbance Status: Acute - Plan Plan: Patient continues to have occasional episodes of agitation which is mostly redirectable, has not required ETO today. We will continue current treatment. We will continue to monitor mood and behavior. Discharge planning a progress. Justification for Continued Inpatient Stay: At risk for further decompensation if at lower level of care. (1) Dementia with behavioral disturbance Qualifiers: Dementia type: Alzheimer's disease Alzheimer's disease onset: other onset Qualified Code(s): G30.8 - Other Alzheimer's disease; F02.81 - Dementia in other diseases classified elsewhere with behavioral disturbance
[2017-12-13] MEDS: Insulin NovoLOG Aspart Correctional Sugar Inj SQ SCH ×5 (02:51→20:30)
[2017-12-13] MEDS: levETIRAcetam 500 MG Tablet PO SCH ×3 (02:51→21:17)
[2017-12-13] MEDS: QUEtiapine 25 MG Tablet PO SCH ×3 (08:29→21:17)
[2017-12-13] MEDS: Gabapentin 400 MG Capsule PO SCH ×2 (08:30→21:17)
--- NOTE | 2017-12-13 12:59 | P.PNPSY ---
Subjective Chief Complaint: - Remarks: The patient was seen today for psychiatric reevaluation. Patient was widely discussed with nursing charge. On my psychiatric evaluation the patient is a sleepy, a little bit lethargic, but finally cooperative. The patient is in a good spirit, reports good mood, he reports that he is hungry, and he had a very good sleep last night. He has been compliant with medications, no significant side effects reported. However this patient continues to have episodes of agitation and aggressive behavior, especially during the afternoon. Yesterday he needed to be medicated with ETO's. Mental Status Examination Appearance: Appropriate Consciousness: Somnolent Orientation: Person, Place (hospital) Motor Activity: Normal gait Speech: Unremarkable Language: Other ([place]) Fund of Knowledge: Poor Attention and Concentration: Inadequate Memory: Impaired Mood: Other (Calm) Affect: Blunt Thought Process & Associations: Other ([place]) Thought Content: Other (Poverty of thought) Hallucination Type: None Delusion Type: None Suicidal Ideation: No Suicidal Plan: No Suicidal Intention: No Homicidal Ideation: No Homicidal Plan: No Homicidal Intention: No Insight: Poor Judgment: Poor Assessment and Plan - Assessment (1) Dementia with behavioral disturbance Code(s): F03.91 - Unspecified dementia with behavioral disturbance Status: Acute - Plan Plan: Patient will continue current psychotropic regimen. Brief supportive psychotherapy provided. Justification for Continued Inpatient Stay: Patient has an elevated risk to decompensate at a lower level of care. (1) Dementia with behavioral disturbance Qualifiers: Dementia type: Alzheimer's disease Alzheimer's disease onset: other onset Qualified Code(s): G30.8 - Other Alzheimer's disease; F02.81 - Dementia in other diseases classified elsewhere with behavioral disturbance
[2017-12-13] MEDS: QUEtiapine 100 MG Tablet PO SCH (17:21)
[2017-12-13] MEDS ORDERED: Haloperidol Inj 5 MG/ML Ampul ONE (18:19)
[2017-12-13] MEDS ORDERED: Haloperidol Inj 5 MG/ML Ampul IM ONE (18:45)
[2017-12-14] MEDS: levETIRAcetam 500 MG Tablet PO SCH ×3 (04:25→22:09)
[2017-12-14] MEDS: Insulin NovoLOG Aspart Correctional Sugar Inj SQ SCH ×5 (04:25→22:09)
[2017-12-14] MEDS: Gabapentin 400 MG Capsule PO SCH ×2 (08:13→22:09)
[2017-12-14] MEDS: QUEtiapine 25 MG Tablet PO SCH ×3 (08:14→22:09)
--- NOTE | 2017-12-14 16:44 | P.PNPSY ---
Subjective Chief Complaint: - Remarks: Pt seen and discussed with staff. Chart reviewed. He received an ETO last night for aggression. Today he has been calm and has not been agitated. He states that he is feeling good and denies pain or discomfort. No SI/HI Mental Status Examination Appearance: Appropriate Consciousness: Other (sleepy but easily arouses) Orientation: Person, Place (hospital) Motor Activity: Normal gait Speech: Unremarkable Language: Other ([place]) Fund of Knowledge: Poor Attention and Concentration: Inadequate Memory: Impaired Mood: Other (Calm) Affect: Flat Thought Process & Associations: Other ([place]) Thought Content: Other (Poverty of thought) Hallucination Type: None Delusion Type: None Suicidal Ideation: No Suicidal Plan: No Suicidal Intention: No Homicidal Ideation: No Homicidal Plan: No Homicidal Intention: No Insight: Poor Judgment: Poor Assessment and Plan - Assessment (1) Dementia with behavioral disturbance Code(s): F03.91 - Unspecified dementia with behavioral disturbance Status: Acute - Plan Plan: l continue current medication regimen and treatment plan Justification for Continued Inpatient Stay: agitaion (1) Dementia with behavioral disturbance Qualifiers: Dementia type: Alzheimer's disease Alzheimer's disease onset: other onset Qualified Code(s): G30.8 - Other Alzheimer's disease; F02.81 - Dementia in other diseases classified elsewhere with behavioral disturbance
[2017-12-14] MEDS: QUEtiapine 100 MG Tablet PO SCH (17:22)
[2017-12-14] MEDS ORDERED: Haloperidol Inj 5 MG/ML Ampul ONE (19:05)
[2017-12-14] MEDS ORDERED: Haloperidol Inj 5 MG/ML Ampul IM ONE (19:15)
[2017-12-15] MEDS: Insulin NovoLOG Aspart Correctional Sugar Inj SQ SCH ×5 (04:05→20:30)
[2017-12-15] MEDS: Gabapentin 400 MG Capsule PO SCH ×2 (08:26→20:33)
[2017-12-15] MEDS: QUEtiapine 25 MG Tablet PO SCH ×4 (08:26→20:34)
--- NOTE | 2017-12-15 09:15 | P.TTN ---
- Patient Problems Problems: 1. Discharge planning 2. Medication compliance 3. Knowledge deficit 4. Lack of coping skills - Progress Toward Goals Provider Present: Dr. Ashely Hernandez Provider Input: 12/01/17: pt continues to demonstrate more consistent behaviors, reduced agitation, continuing medical stabilization, progress noted by Psychiatrist. Continuation of search for appropriate placement. . 11/26/2017' patient is less agitated, medication stablization still be address. 11/25/2017 ; patient has had to be given ETO's during the evening time, redirect with aggressive behavior. Patient has been stable psych for the last week; however he has recently had an altered mental status. 11/19/17: Pt continues to be stable, Angie continues to search for placement. Brent to follow -up with legal department issues. Nurse(s) Present: Felicity RN, Nurse Input: 11/26/2017; patient has unpredictable moods, requires redirections , he is taking his medication and eating meals. 11/25/2017; patient's behavior is extremely unpredictable, require redirection and ETO's. Per nurse patient had to be ETO, due to aggressive behavior, patient was unable and extremely difficult to verbally redirect. 11/19/17: Per nurse, Vishnu; pt has had no documentable behaviors, he is re-directable. Psychiatric Counselors Present: Nicolasa Pérez LCSW, Angie Velasquez, [facility] Psychiatric Therapist Input: 11/26/2017 counselor continues to recall snf to update acceptance status for appropriate dc planning. 11/25/2017 Counselor will continue faxing packages to SNF skilling placement. Counselor will continue skilling skill nursing placement for an appropriate hospital discharge. Angie continuing to f/u with snf placement. Group Spec/RT/OT/AARON Present: Tamiko Godoy, GPS, GALEN Gardner, Obinna Johnson, OT, GALEN Menezes Group Spec/RT/OT/AARON Input: 12/01/17: Pt has been unable to attend groups d/t physical limitations. 11/26/2017 per RT patient has been unable due to physical limitations participate with groups and activities. 11/25/2017; per RT patient has been unable to physically or mentally participate with groups/ activities. Per RT patient has been unable to appropriately participate with groups or activities. 11/19/17: Pt has been unable to tolerate groups. Occupational Therapist Input: 11/18/17: Pt continues to require physical assistance to complete ADLS, pt is not currently receiving skilled occupational therapy services, assistance is provided by other staff (pt is 1:1 supervision; falls risk). Clinical Coordinator Input: Manda to follow-up with potential legal issues. - Discharge Plan Other (Patient will be dc to skill shelter when linked) Angie is actively pursuing placement at appropriate snf. - Documentation Scribe: Obinna Johnson MS, OTR Teaching Recipient: Patient
--- NOTE | 2017-12-15 09:19 | P.TTN ---
- Patient Problems Problems: 1. Discharge planning 2. Medication compliance 3. Knowledge deficit 4. Lack of coping skills - Progress Toward Goals Provider Present: Dr. Ashely Hernandez Provider Input: 12/15/17: Pt continues to be placement challenge; behaviors are more consistent. 12/01/17: pt continues to demonstrate more consistent behaviors , reduced agitation, continuing medical stabilization, progress noted by Psychiatrist. Continuation of search for appropriate placement. . 11/26/2017' patient is less agitated, medication stablization still be address. 11/25/2017 ; patient has had to be given ETO's during the evening time, redirect with aggressive behavior. Patient has been stable psych for the last week; however he has recently had an altered mental status. 11/19/17: Pt continues to be stable, Angie continues to search for placement. Brent to follow -up with legal department issues. Nurse(s) Present: Felicity RN, Nurse Input: 11/26/2017; patient has unpredictable moods, requires redirections , he is taking his medication and eating meals. 11/25/2017; patient's behavior is extremely unpredictable, require redirection and ETO's. Per nurse patient had to be ETO, due to aggressive behavior, patient was unable and extremely difficult to verbally redirect. 11/19/17: Per nurse, Vishnu; pt has had no documentable behaviors, he is re-directable. Psychiatric Counselors Present: Nicolasa Pérez LCSW, Angie Velasquez, [facility] Psychiatric Therapist Input: 12/15/17: counselor continues to seek placement at snf's. 11/26/2017 counselor continues to recall snf to update acceptance status for appropriate dc planning. 11/25/2017 Counselor will continue faxing packages to SNF skilling placement. Counselor will continue skilling skill nursing placement for an appropriate hospital discharge. Angie continuing to f/ u with snf placement. Group Spec/RT/OT/AARON Present: Tamiko Godoy, GPS, GALEN Gardner, Obinna Johnson, OT, GALEN Menezes Group Spec/RT/OT/AARON Input: 12/15/17: Pt has been unable to attend groups; confusion and physical limitations. 12/01/17: Pt has been unable to attend groups d/t physical limitations. 11/26/2017 per RT patient has been unable due to physical limitations participate with groups and activities. 11/25/2017; per RT patient has been unable to physically or mentally participate with groups /activities. Per RT patient has been unable to appropriately participate with groups or activities. 11/19/17: Pt has been unable to tolerate groups. Occupational Therapist Input: 11/18/17: Pt continues to require physical assistance to complete ADLS, pt is not currently receiving skilled occupational therapy services, assistance is provided by other staff (pt is 1:1 supervision; falls risk). Clinical Coordinator Input: Manda to follow-up with potential legal issues. - Discharge Plan Other (Patient will be dc to [facility] when linked) Angie is actively pursuing placement at appropriate snf. - Documentation Scribe: Obinna Johnson MS, OTR Teaching Recipient: Patient
[2017-12-15] MEDS: levETIRAcetam 500 MG Tablet PO SCH ×2 (10:40→22:52)
[2017-12-15 11:30] LABS: Baso # (Auto) 0.1 th/mm3 (0.0-0.2); Baso % (Auto) 1.3 % (0.0-2.0); Eos # (Auto) 0.1 th/mm3 (0.0-0.4); Hematocrit 36.7 % (39.0-51.0); Hemoglobin 12.4 gm/dL (13.0-17.0); Lymph # (Auto) 0.9 th/mm3 (1.0-4.8); Mean Corpuscular HGB Conc 33.7 % (32.0-36.0); Mean Corpuscular Hemoglobin 26.5 pg (27.0-34.0); Mean Corpuscular Volume 78.6 fL (80.0-100.0); Mean Platelet Volume 8.5 fL (7.0-11.0); Mono # (Auto) 0.3 th/mm3 (0.0-0.9); Neut # (Auto) 2.7 th/mm3 (1.8-7.7); Neut % (Auto) 65.7 % (16.0-70.0); Platelet Count 172 th/mm3 (150-450); Red Blood Count 4.67 mil/mm3 (4.50-5.90); Red Cell Distribution Width 14.8 % (11.6-17.2); White Blood Count 4.1 th/mm3 (4.0-11.0)
[2017-12-15 11:53] LABS: Alanine Aminotransferase 28 U/L (12-78); Albumin 3.1 g/dL (3.4-5.0); Anion Gap 11 meq/L (5-15); Aspartate Aminotransferase 19 U/L (15-37); Blood Urea Nitrogen 13 mg/dL (7-18); Calcium 8.3 mg/dL (8.5-10.1); Carbon Dioxide 25.1 meq/L (21.0-32.0); Chloride 107 meq/L (98-107); Glomerular Filtration Rate 54 mL/min (>89); Glucose,Random 176 mg/dL (74-106); Potassium 3.7 meq/L (3.5-5.1); Sodium 143 meq/L (136-145)
[2017-12-15 11:54] LABS: Alkaline Phosphatase 65 U/L (45-117); Total Protein 6.3 g/dL (6.4-8.2)
[2017-12-15] MEDS: QUEtiapine 100 MG Tablet PO SCH (17:38)
[2017-12-15] MEDS ORDERED: Haloperidol Inj 5 MG/ML Ampul IM ONE (19:30)
--- NOTE | 2017-12-15 19:46 | P.PNPSY ---
Subjective Chief Complaint: - Remarks: Patient seen for follow up; chart reviewed. Discussion with nursing staff reported that patient had received ETOs over the weekend, last yesterday. Patient was found sitting on hospital bed with sitter at bedside. Patient continues with baseline confusion, noted with concrete responses. Patient denies any physical complaints, reports adequate appetite, no difficulty with bowel movement. Patient noted to have episodes of irritability and agitation related to wanting to have a bowel movement. Patient has tendency to have episodes of agitation in the evening. Review of Systems All other systems reviewed negative except as stated in HPI Mental Status Examination Appearance: Appropriate Consciousness: Other (sleepy but easily arouses) Orientation: Person, Place (hospital) Motor Activity: Normal gait Speech: Unremarkable Language: Other ([place]) Fund of Knowledge: Poor Attention and Concentration: Inadequate Memory: Impaired Mood: Other (Calm) Affect: Flat Thought Process & Associations: Other ([place]) Thought Content: Other (Poverty of thought) Hallucination Type: None Delusion Type: None Suicidal Ideation: No Suicidal Plan: No Suicidal Intention: No Homicidal Ideation: No Homicidal Plan: No Homicidal Intention: No Insight: Poor Judgment: Poor Assessment and Plan - Assessment (1) Dementia with behavioral disturbance Code(s): F03.91 - Unspecified dementia with behavioral disturbance Status: Acute - Plan Plan: Patient this time continues to have episodes of agitation mostly during the late evening as well as at times when patient requires assistance with bowel movement. We will increase quetiapine to 125 mg in the evening, continue rest of medications, continue to monitor mood and behavior. Labs reviewed with slightly elevated creatinine, will continue to monitor; UA pending. Discharge planning a progress. Justification for Continued Inpatient Stay: At risk of further decompensation a lower level of care. (1) Dementia with behavioral disturbance Qualifiers: Dementia type: Alzheimer's disease Alzheimer's disease onset: other onset Qualified Code(s): G30.8 - Other Alzheimer's disease; F02.81 - Dementia in other diseases classified elsewhere with behavioral disturbance
[2017-12-16] MEDS: Insulin NovoLOG Aspart Correctional Sugar Inj SQ SCH ×5 (03:33→21:32)
[2017-12-16] MEDS: Gabapentin 400 MG Capsule PO SCH ×2 (08:19→20:53)
[2017-12-16] MEDS: QUEtiapine 25 MG Tablet PO SCH ×4 (08:20→20:53)
[2017-12-16] MEDS: levETIRAcetam 500 MG Tablet PO SCH ×2 (11:55→22:33)
--- NOTE | 2017-12-16 16:31 | P.DIET ---
Nutritional Evaluation Type of nutrition evaluation: follow-up Nutrition screening: [facility] [place] ([facility] [place]nutrition) Screening comments: 10/17 [facility] [place] Malnutrition Subjective Barriers to Nutrition: Refuses to eat at times Oral Diet Tolerance Assessment Indicates: Edentulous Subjective Comments: Pt visited after lunch today and he was sleeping soundly. PO intake today 100% for breakfast and 75% for lunch. Sitter Ziggy in room and reports pt is drinking the Ensure. Objective - Diagnosis Dementia with Behavioral Disturbance - Objective [place] body weight: 154 kg (previous admission Ht 172.7cm) % IBW: 129 Body Weight Used for Calculations: IBW (70kg per previous admissions) Energy Needs - Lower Range (kCal/kg): 25 Energy Needs - Upper Range (kCal/kg): 30 Lower Limit kCal/kg (kCals): 1,750 Upper Limit kCal/kg (kCals): 2,100 Lower Limit Protein Factor (Grams per Kg): 1.5 Upper Limit Protein Factor (Grams per Kg): 1.8 Lower Protein Needs (Protein): 105 Upper Protein Needs (Protein): 126 Fluid Factor (ml/kg): 30 Estimated Fluid Needs (ml): 2,100 Dietitian Reviewed in Medical Record: Current diet, Curent medications, Intake & Output, Labs Diet Order: Regular Oral Diet Intake Amount: Good 75-90% Objective Comments: POC Glucose 109, 81 Novolog Feeding - Current PO Supplement Current Supplement: Ensure Original Current Frequency of Supplement: Three times a day (x2 per meal) Current kCals Provided by Supplement: 250 Current Protein Provided by Supplement: 9 Assessment Assessment: Pt remains on a Regular diet w/Adequate PO intake 50% and greater for most meals. Wt. is stable. Previous visit pt reported he did not care for the Glucerna Shakes and the Dietitian, at that time, changed the oral supplement to Ensure. Glucose WNL. Pt has a history of Morbid Obesity s/p Gastric Bypass(date for this procedure is not known), requiring increased needs for protein and bariatric vitamins, including a MVM, B-complex and Calcium. Hospital formulary does not include bariatric vitamins, therefore, rec Theragran M, B-Complex and Calcium w/D supplements daily. Dietitian to follow as needed. Recommendations: 1. H/O Gastric Bypass- Rec Theragran M, B-Complex and Calcium w/D supplements daily 2. Ensure TID 3. Dietitian to follow as needed
[2017-12-16] MEDS: QUEtiapine 100 MG Tablet PO SCH (17:00)
--- NOTE | 2017-12-16 21:29 | P.PNPSY ---
Subjective Chief Complaint: - Remarks: Patient seen for follow up; chart reviewed. Discussion with nursing staff reported patient to be somewhat somnolent, had receive ETO last evening. Patient was found lying in bed asleep was able able to wake up and participate in interview. Patient state he is feeling "good" denies any physical complaints at this time. Patient was encouraged to advise staff when he needed to use the restroom so he may have assistance which she agreed. Patient eating and drinking well. Patient denies any perceptional services or delusions. Patient continued with baseline confusion. Review of Systems All other systems reviewed negative except as stated in HPI Mental Status Examination Appearance: Appropriate Consciousness: Other (sleepy but easily arouses) Orientation: Person, Place (hospital) Motor Activity: Normal gait Speech: Unremarkable Language: Other ([place]) Fund of Knowledge: Poor Attention and Concentration: Inadequate Memory: Impaired Mood: Other (Calm) Affect: Flat Thought Process & Associations: Other ([place]) Thought Content: Other (Poverty of thought) Hallucination Type: None Delusion Type: None Suicidal Ideation: No Suicidal Plan: No Suicidal Intention: No Homicidal Ideation: No Homicidal Plan: No Homicidal Intention: No Insight: Poor Judgment: Poor Assessment and Plan - Assessment (1) Dementia with behavioral disturbance Code(s): F03.91 - Unspecified dementia with behavioral disturbance Status: Acute - Plan Plan: Patient continues with baseline confusion, recent episodes of irritability and agitation requiring ETO's, patient recently had increase in quetiapine yesterday and has not required ETO's today. We will continue current treatment. Continue to monitor mood and behavior. Discharge planning a progress. Justification for Continued Inpatient Stay: At risk of further decompensation a lower level of care. (1) Dementia with behavioral disturbance Qualifiers: Dementia type: Alzheimer's disease Alzheimer's disease onset: other onset Qualified Code(s): G30.8 - Other Alzheimer's disease; F02.81 - Dementia in other diseases classified elsewhere with behavioral disturbance
[2017-12-17] MEDS: Insulin NovoLOG Aspart Correctional Sugar Inj SQ SCH ×5 (03:11→20:16)
[2017-12-17] MEDS: QUEtiapine 25 MG Tablet PO SCH ×4 (09:48→20:17)
[2017-12-17] MEDS: levETIRAcetam 500 MG Tablet PO SCH ×2 (09:48→22:20)
[2017-12-17] MEDS: Gabapentin 400 MG Capsule PO SCH ×2 (09:48→20:17)
--- NOTE | 2017-12-17 14:40 | P.PNPSY ---
Subjective Chief Complaint: - Remarks: The patient was seen today for psychiatric reevaluation. Case was discussed with nurse in charge. Patient was found sitting in a chair, calm, cooperative, pleasantly confused. He does not know where he is, he says that he is in a restaurant "waiting for my breakfast to come". He reports good mood, to be happy, denies depression, denies suicidal and homicidal ideation, denies visual and auditory hallucinations. Oriented to person, but disoriented in time and place. No agitation or aggressive behavior present at this moment. No oversedation present. Patient compliant medications no significant side effects. No episodes of behavioral dysregulation in the last 24 hours. Mental Status Examination Appearance: Appropriate Consciousness: Other (sleepy but easily arouses) Orientation: Person, Place (hospital) Motor Activity: Normal gait Speech: Unremarkable Language: Other ([place]) Fund of Knowledge: Poor Attention and Concentration: Inadequate Memory: Impaired Mood: Other (Calm) Affect: Flat Thought Process & Associations: Other ([place]) Thought Content: Other (Poverty of thought) Hallucination Type: None Delusion Type: None Suicidal Ideation: No Suicidal Plan: No Suicidal Intention: No Homicidal Ideation: No Homicidal Plan: No Homicidal Intention: No Insight: Poor Judgment: Poor Assessment and Plan - Assessment (1) Dementia with behavioral disturbance Code(s): F03.91 - Unspecified dementia with behavioral disturbance Status: Acute - Plan Plan: Continue current psychotropic regimen. Patient continue for psychiatric admission for stabilization and safety. Justification for Continued Inpatient Stay: Patient has an elevated risk to decompensate at a lower level of care. (1) Dementia with behavioral disturbance Qualifiers: Dementia type: Alzheimer's disease Alzheimer's disease onset: other onset Qualified Code(s): G30.8 - Other Alzheimer's disease; F02.81 - Dementia in other diseases classified elsewhere with behavioral disturbance
[2017-12-17] MEDS ORDERED: Haloperidol Inj 5 MG/ML Ampul ONE (17:09)
[2017-12-17] MEDS: QUEtiapine 100 MG Tablet PO SCH (17:50)
[2017-12-17] MEDS ORDERED: Haloperidol Inj 5 MG/ML Ampul IM ONE (19:00)
[2017-12-18] MEDS: QUEtiapine 25 MG Tablet PO SCH ×4 (08:01→20:58)
[2017-12-18] MEDS: Insulin NovoLOG Aspart Correctional Sugar Inj SQ SCH ×4 (08:02→20:57)
[2017-12-18] MEDS: Gabapentin 400 MG Capsule PO SCH ×2 (08:02→20:58)
[2017-12-18] MEDS: levETIRAcetam 500 MG Tablet PO SCH (10:39)
--- NOTE | 2017-12-18 13:30 | P.PNPSY ---
Subjective Chief Complaint: - Remarks: The patient was seen today for psychiatric reevaluation. The patient is found in his room, he is calm, cooperative, diffusely confused, eating his lunch. Reports feeling better, reports good mood, oriented in person, disoriented in time and place. Will follow 1 and 2 steps commands, but severely cognitively impaired. Unable to provide much information for the evaluation. Compliant with medications, no significant side effects. The patient continues to present evening agitation and aggressive behavior leading ETO's. Mental Status Examination Appearance: Appropriate Consciousness: Other (sleepy but easily arouses) Orientation: Person, Place (hospital) Motor Activity: Normal gait Speech: Unremarkable Language: Other ([place]) Fund of Knowledge: Poor Attention and Concentration: Inadequate Memory: Impaired Mood: Other (Calm) Affect: Flat Thought Process & Associations: Other ([place]) Thought Content: Other (Poverty of thought) Hallucination Type: None Delusion Type: None Suicidal Ideation: No Suicidal Plan: No Suicidal Intention: No Homicidal Ideation: No Homicidal Plan: No Homicidal Intention: No Insight: Poor Judgment: Poor Assessment and Plan - Assessment (1) Dementia with behavioral disturbance Code(s): F03.91 - Unspecified dementia with behavioral disturbance Status: Acute - Plan Plan: Patient will continue psychiatric hospitalization for stabilization and to coordinate discharge plan. Continue current psychotropic regimen Justification for Continued Inpatient Stay: Continue psychiatric admission for stabilization. (1) Dementia with behavioral disturbance Qualifiers: Dementia type: Alzheimer's disease Alzheimer's disease onset: other onset Qualified Code(s): G30.8 - Other Alzheimer's disease; F02.81 - Dementia in other diseases classified elsewhere with behavioral disturbance
[2017-12-18] MEDS: QUEtiapine 100 MG Tablet PO SCH (17:04)
[2017-12-19] MEDS: levETIRAcetam 500 MG Tablet PO SCH ×3 (03:06→21:07)
[2017-12-19] MEDS: Insulin NovoLOG Aspart Correctional Sugar Inj SQ SCH ×5 (03:06→20:32)
[2017-12-19] MEDS: QUEtiapine 25 MG Tablet PO SCH ×4 (08:25→21:07)
[2017-12-19] MEDS: Gabapentin 400 MG Capsule PO SCH ×2 (08:25→21:07)
[2017-12-19] MEDS: QUEtiapine 100 MG Tablet PO SCH (16:55)
--- NOTE | 2017-12-19 20:40 | P.PNPSY ---
Subjective Chief Complaint: - Remarks: Patient seen for follow, chart reviewed. Discussion nursing staff reported the patient compliant with medications and no ETO's recently has been calm and cooperative. Patient was found sitting hospital chair noted B, cooperative. Patient states that he is feeling "good" denying physical complaints at this time, continues with baseline confusion as noted by the staff but no aggressive behaviors no irritability and compliant with treatment. Patient denies any suicidal homicidal ideations, denies any perceptional services. Review of Systems All other systems reviewed negative except as stated in HPI Mental Status Examination Appearance: Appropriate Consciousness: Other (sleepy but easily arouses) Orientation: Person, Place (hospital) Motor Activity: Normal gait Speech: Unremarkable Language: Other ([place]) Fund of Knowledge: Poor Attention and Concentration: Inadequate Memory: Impaired Mood: Other (Calm) Affect: Flat Thought Process & Associations: Other ([place]) Thought Content: Other (Poverty of thought) Hallucination Type: None Delusion Type: None Suicidal Ideation: No Suicidal Plan: No Suicidal Intention: No Homicidal Ideation: No Homicidal Plan: No Homicidal Intention: No Insight: Poor Judgment: Poor Assessment and Plan - Assessment (1) Dementia with behavioral disturbance Code(s): F03.91 - Unspecified dementia with behavioral disturbance Status: Acute - Plan Plan: Patient continues with baseline confusion, no recent aggressive behavior or disturbances of conduct. We will continue current treatment. Continue to monitor mood and behavior. Discharge planning a progress. Justification for Continued Inpatient Stay: At risk of further decompensation a low level of care. (1) Dementia with behavioral disturbance Qualifiers: Dementia type: Alzheimer's disease Alzheimer's disease onset: other onset Qualified Code(s): G30.8 - Other Alzheimer's disease; F02.81 - Dementia in other diseases classified elsewhere with behavioral disturbance
[2017-12-20] MEDS: levETIRAcetam 500 MG Tablet PO SCH ×3 (02:43→21:52)
[2017-12-20] MEDS: Insulin NovoLOG Aspart Correctional Sugar Inj SQ SCH ×5 (02:44→20:03)
[2017-12-20] MEDS: Gabapentin 400 MG Capsule PO SCH ×2 (08:44→21:52)
[2017-12-20] MEDS: QUEtiapine 25 MG Tablet PO SCH ×4 (08:44→21:52)
--- NOTE | 2017-12-20 15:20 | P.PNPSY ---
Subjective Chief Complaint: - Remarks: Patient was seen and case discussed with nursing. Patient is alert and oriented x2. He is internally preoccupied. Per nursing, "he is more calm, taking his medications." Patient has not had any outbursts today. Describes his mood today is "lousy." Mental Status Examination Appearance: Appropriate Consciousness: Other (sleepy but easily arouses) Orientation: Person, Place (hospital) Motor Activity: Normal gait Speech: Unremarkable Language: Other ([place]) Fund of Knowledge: Poor Attention and Concentration: Inadequate Memory: Impaired Mood: Other ([place]) Affect: Blunt Thought Process & Associations: Other ([place]) Thought Content: Other (Poverty of thought) Hallucination Type: None Delusion Type: None Suicidal Ideation: No Suicidal Plan: No Suicidal Intention: No Homicidal Ideation: No Homicidal Plan: No Homicidal Intention: No Insight: Poor Judgment: Poor Assessment and Plan - Assessment (1) Dementia with behavioral disturbance Code(s): F03.91 - Unspecified dementia with behavioral disturbance Status: Acute - Plan Plan: Continue current treatment plan Justification for Continued Inpatient Stay: Patient would decompensate in a less restrictive setting (1) Dementia with behavioral disturbance Qualifiers: Dementia type: Alzheimer's disease Alzheimer's disease onset: other onset Qualified Code(s): G30.8 - Other Alzheimer's disease; F02.81 - Dementia in other diseases classified elsewhere with behavioral disturbance
[2017-12-20] MEDS: QUEtiapine 100 MG Tablet PO SCH (17:14)
[2017-12-21] MEDS: Insulin NovoLOG Aspart Correctional Sugar Inj SQ SCH ×6 (03:00→21:18)
[2017-12-21] MEDS: QUEtiapine 25 MG Tablet PO SCH ×4 (08:25→21:08)
[2017-12-21] MEDS: Gabapentin 400 MG Capsule PO SCH ×2 (08:28→21:08)
[2017-12-21] MEDS: levETIRAcetam 500 MG Tablet PO SCH ×3 (11:15→23:45)
--- NOTE | 2017-12-21 13:52 | P.PNPSY ---
Subjective Chief Complaint: - Remarks: Patient was seen and case discussed with nursing. Patient is alert and oriented x1. His behavior continues to be well controlled. He is pleasant and cooperative. He has not had any outbursts or agitation. He is compliant with his medications. Has not needed any ETO's Mental Status Examination Appearance: Appropriate Consciousness: Other (sleepy but easily arouses) Orientation: Person, Place (hospital) Motor Activity: Normal gait Speech: Unremarkable Language: Other ([place]) Fund of Knowledge: Poor Attention and Concentration: Inadequate Memory: Impaired Mood: Other ([place]) Affect: Blunt Thought Process & Associations: Other ([place]) Thought Content: Other (Poverty of thought) Hallucination Type: None Delusion Type: None Suicidal Ideation: No Suicidal Plan: No Suicidal Intention: No Homicidal Ideation: No Homicidal Plan: No Homicidal Intention: No Insight: Poor Judgment: Poor Assessment and Plan - Assessment (1) Dementia with behavioral disturbance Code(s): F03.91 - Unspecified dementia with behavioral disturbance Status: Acute - Plan Plan: Continue current treatment plan Justification for Continued Inpatient Stay: Patient would decompensate in a less restrictive setting (1) Dementia with behavioral disturbance Qualifiers: Dementia type: Alzheimer's disease Alzheimer's disease onset: other onset Qualified Code(s): G30.8 - Other Alzheimer's disease; F02.81 - Dementia in other diseases classified elsewhere with behavioral disturbance
[2017-12-21] MEDS: QUEtiapine 100 MG Tablet PO SCH (17:36)
[2017-12-22] MEDS: Insulin NovoLOG Aspart Correctional Sugar Inj SQ SCH ×5 (02:14→20:12)
[2017-12-22] MEDS: Gabapentin 400 MG Capsule PO SCH ×2 (08:45→20:01)
[2017-12-22] MEDS: QUEtiapine 25 MG Tablet PO SCH ×4 (08:45→20:01)
[2017-12-22] MEDS: levETIRAcetam 500 MG Tablet PO SCH ×2 (10:56→22:45)
[2017-12-22] MEDS: QUEtiapine 100 MG Tablet PO SCH (16:46)
--- NOTE | 2017-12-22 17:15 | P.PNPSY ---
Subjective Chief Complaint: - Remarks: Reviewed electronic medical records and discussed case with staff. Follow-up was conducted in the patient's room with his nurse present. She reports that he has been somewhat "out of it" since his last medication increase however he has had resolution of his behaviors. She reports that he is been pleasant cooperative and that his blood glucose level has been improved. Upon examination patient smiling, cooperative, appropriate throughout the follow-up. He states that he slept well and his appetite's been good. Mental Status Examination Appearance: Appropriate Consciousness: Other (sleepy but easily arouses) Orientation: Person, Place (hospital) Motor Activity: Normal gait Speech: Unremarkable Language: Other ([place]) Fund of Knowledge: Poor Attention and Concentration: Inadequate Memory: Impaired Mood: Other ([place]) Affect: Blunt Thought Process & Associations: Other ([place]) Thought Content: Other (Poverty of thought) Hallucination Type: None Delusion Type: None Suicidal Ideation: No Suicidal Plan: No Suicidal Intention: No Homicidal Ideation: No Homicidal Plan: No Homicidal Intention: No Insight: Poor Judgment: Poor Assessment and Plan - Assessment (1) Dementia with behavioral disturbance Code(s): F03.91 - Unspecified dementia with behavioral disturbance Status: Acute - Plan Plan: Patient will be reevaluated tomorrow by the attending psychiatrist. Continue with current treatment plan. Justification for Continued Inpatient Stay: Moving this patient to a less restrictive environment would likely result in decompensation. (1) Dementia with behavioral disturbance Qualifiers: Dementia type: Alzheimer's disease Alzheimer's disease onset: other onset Qualified Code(s): G30.8 - Other Alzheimer's disease; F02.81 - Dementia in other diseases classified elsewhere with behavioral disturbance
[2017-12-23] MEDS ORDERED: Haloperidol Inj 5 MG/ML Ampul IM ONE (03:15)
[2017-12-23] MEDS: Insulin NovoLOG Aspart Correctional Sugar Inj SQ SCH ×5 (03:23→20:18)
[2017-12-23] MEDS: Gabapentin 400 MG Capsule PO SCH ×3 (06:35→20:17)
[2017-12-23] MEDS: QUEtiapine 25 MG Tablet PO SCH ×5 (06:37→20:17)
[2017-12-23] MEDS: levETIRAcetam 500 MG Tablet PO SCH ×2 (10:29→21:55)
--- NOTE | 2017-12-23 16:36 | P.PNPSY ---
Subjective Chief Complaint: - Remarks: Patient seen for follow up, chart reviewed. Discussion with nursing staff reported patient had ETO's yesterday at 8 PM and at 3 AM last night. Patient was found lying hospital bed somnolent likely secondary to ETO's less evening but is able to interact minimally during interview today. Patient states she is feeling "alright" poor eye contact but answering questions. Patient states that he has no physical complaints at this time reports eating and drinking well , denies any suicidal homicidal ideations. Patient continues with baseline confusion. No behavioral disturbances since this morning. Review of Systems All other systems reviewed negative except as stated in HPI Mental Status Examination Appearance: Appropriate Consciousness: Other (sleepy but easily arouses) Orientation: Person, Place (hospital) Motor Activity: Normal gait Speech: Unremarkable Language: Other ([place]) Fund of Knowledge: Poor Attention and Concentration: Inadequate Memory: Impaired Mood: Other ([place]) Affect: Blunt Thought Process & Associations: Other ([place]) Thought Content: Other (Poverty of thought) Hallucination Type: None Delusion Type: None Suicidal Ideation: No Suicidal Plan: No Suicidal Intention: No Homicidal Ideation: No Homicidal Plan: No Homicidal Intention: No Insight: Poor Judgment: Poor Assessment and Plan - Assessment (1) Dementia with behavioral disturbance Code(s): F03.91 - Unspecified dementia with behavioral disturbance Status: Acute - Plan Plan: Patient continues to have episodes of agitation required ETO's. Patient had ETO last evening with no behavioral services today. We will continue current treatment. Patient continues to have continued episodes of agitation we will continue to titrate quetiapine to target agitation. We will continue to monitor mood and behavior. Patient to continue one-to-one observation for safety. Discharge planning a progress. Justification for Continued Inpatient Stay: At risk of further decompensation a lower level of care. (1) Dementia with behavioral disturbance Qualifiers: Dementia type: Alzheimer's disease Alzheimer's disease onset: other onset Qualified Code(s): G30.8 - Other Alzheimer's disease; F02.81 - Dementia in other diseases classified elsewhere with behavioral disturbance
[2017-12-23] MEDS: QUEtiapine 100 MG Tablet PO SCH (16:57)
[2017-12-24] MEDS: Insulin NovoLOG Aspart Correctional Sugar Inj SQ SCH ×5 (04:26→21:42)
[2017-12-24] MEDS: Gabapentin 400 MG Capsule PO SCH ×2 (09:11→20:11)
[2017-12-24] MEDS: QUEtiapine 25 MG Tablet PO SCH ×4 (09:12→20:11)
--- NOTE | 2017-12-24 11:39 | P.PNPSY ---
Subjective Chief Complaint: - Remarks: Patient seen for follow up; chart reviewed. Discussion with nursing staff reported that patient with no behavioral disturbances last night. Patient was found somnolent in the morning, requiring redirection at times but was able to participate in breakfast. Continues with baseline confusion, no physical complaints at this time from patient. Patient reports that he is feeling "alright". Review of Systems All other systems reviewed negative except as stated in HPI Mental Status Examination Appearance: Appropriate Consciousness: Other (sleepy but easily arouses) Orientation: Person, Place (hospital) Motor Activity: Normal gait Speech: Unremarkable Language: Other ([place]) Fund of Knowledge: Poor Attention and Concentration: Inadequate Memory: Impaired Mood: Other ([place]) Affect: Blunt Thought Process & Associations: Other ([place]) Thought Content: Other (Poverty of thought) Hallucination Type: None Delusion Type: None Suicidal Ideation: No Suicidal Plan: No Suicidal Intention: No Homicidal Ideation: No Homicidal Plan: No Homicidal Intention: No Insight: Poor Judgment: Poor Assessment and Plan - Assessment (1) Dementia with behavioral disturbance Code(s): F03.91 - Unspecified dementia with behavioral disturbance Status: Acute - Plan Plan: Patient with no further agitations or episodes of behavioral disturbances. Patient most compliant with treatment and cooperative. We will continue current treatment. Continue to monitor mood and behavior. Discharge planning in progress. Justification for Continued Inpatient Stay: At risk of further decompensation a lower level of care. (1) Dementia with behavioral disturbance Qualifiers: Dementia type: Alzheimer's disease Alzheimer's disease onset: other onset Qualified Code(s): G30.8 - Other Alzheimer's disease; F02.81 - Dementia in other diseases classified elsewhere with behavioral disturbance
[2017-12-24] MEDS: levETIRAcetam 500 MG Tablet PO SCH ×2 (15:21→22:43)
[2017-12-24] MEDS: QUEtiapine 100 MG Tablet PO SCH (16:11)
[2017-12-25] MEDS: Insulin NovoLOG Aspart Correctional Sugar Inj SQ SCH ×5 (03:11→20:32)
[2017-12-25] MEDS: QUEtiapine 25 MG Tablet PO SCH ×4 (10:09→20:22)
[2017-12-25] MEDS: Gabapentin 400 MG Capsule PO SCH ×2 (10:09→20:23)
[2017-12-25] MEDS: levETIRAcetam 500 MG Tablet PO SCH ×2 (10:10→20:23)
--- NOTE | 2017-12-25 11:57 | P.PNPSY ---
Subjective Chief Complaint: - Remarks: Patient seen for follow up; chart reviewed. Discussion with nursing staff reported patient somnolent this morning but had difficulty with sleep. Patient was found lying on hospital bed, noted to be somnolent but able to wake up for interview. Patient continues with baseline confusion, no irritability or episodes of agitation for several days now. Patient continues to require redirection at times but manageable behaviorially. Review of Systems All other systems reviewed negative except as stated in HPI Mental Status Examination Appearance: Appropriate Consciousness: Other (sleepy but easily arouses) Orientation: Person, Place (hospital) Motor Activity: Normal gait Speech: Unremarkable Language: Other ([place]) Fund of Knowledge: Poor Attention and Concentration: Inadequate Memory: Impaired Mood: Other ([place]) Affect: Blunt Thought Process & Associations: Other ([place]) Thought Content: Other (Poverty of thought) Hallucination Type: None Delusion Type: None Suicidal Ideation: No Suicidal Plan: No Suicidal Intention: No Homicidal Ideation: No Homicidal Plan: No Homicidal Intention: No Insight: Poor Judgment: Poor Assessment and Plan - Assessment (1) Dementia with behavioral disturbance Code(s): F03.91 - Unspecified dementia with behavioral disturbance Status: Acute - Plan Plan: Patient noted to be somnolent this morning, patient with reported poor sleep last night. No behavioral disturbances, no ETOs. Continue current treatment, continue to monitor mood and behavior. Discharge planning in progress. Justification for Continued Inpatient Stay: At risk for further decompensation at lower level of care. (1) Dementia with behavioral disturbance Qualifiers: Dementia type: Alzheimer's disease Alzheimer's disease onset: other onset Qualified Code(s): G30.8 - Other Alzheimer's disease; F02.81 - Dementia in other diseases classified elsewhere with behavioral disturbance
[2017-12-25] MEDS: QUEtiapine 100 MG Tablet PO SCH (16:57)
[2017-12-26] MEDS: Insulin NovoLOG Aspart Correctional Sugar Inj SQ SCH ×5 (07:17→21:24)
[2017-12-26] MEDS: Gabapentin 400 MG Capsule PO SCH ×2 (08:01→21:24)
[2017-12-26] MEDS: QUEtiapine 25 MG Tablet PO SCH ×4 (08:01→21:24)
[2017-12-26 08:22] LABS: Baso # (Auto) 0.1 th/mm3 (0.0-0.2); Baso % (Auto) 1.4 % (0.0-2.0); Eos # (Auto) 0.1 th/mm3 (0.0-0.4); Hematocrit 36.2 % (39.0-51.0); Hemoglobin 12.3 gm/dL (13.0-17.0); Lymph # (Auto) 1.4 th/mm3 (1.0-4.8); Lymph % (Auto) 31.7 % (9.0-44.0); Mean Corpuscular Hemoglobin 26.8 pg (27.0-34.0); Mean Corpuscular Volume 78.7 fL (80.0-100.0); Mean Platelet Volume 8.9 fL (7.0-11.0); Mono # (Auto) 0.5 th/mm3 (0.0-0.9); Mono % (Auto) 11.8 % (0.0-8.0); Neut # (Auto) 2.4 th/mm3 (1.8-7.7); Neut % (Auto) 52.1 % (16.0-70.0); Platelet Count 161 th/mm3 (150-450); Red Cell Distribution Width 14.7 % (11.6-17.2); White Blood Count 4.6 th/mm3 (4.0-11.0)
[2017-12-26 08:33] LABS: Alanine Aminotransferase 27 U/L (12-78); Albumin 3.2 g/dL (3.4-5.0); Anion Gap 8 meq/L (5-15); Aspartate Aminotransferase 16 U/L (15-37); Blood Urea Nitrogen 16 mg/dL (7-18); Calcium 8.3 mg/dL (8.5-10.1); Carbon Dioxide 29.3 meq/L (21.0-32.0); Chloride 107 meq/L (98-107); Glomerular Filtration Rate 62 mL/min (>89); Glucose,Random 84 mg/dL (74-106); Potassium 3.8 meq/L (3.5-5.1); Sodium 144 meq/L (136-145)
[2017-12-26 08:34] LABS: Alkaline Phosphatase 65 U/L (45-117); Total Protein 6.4 g/dL (6.4-8.2)
[2017-12-26] MEDS ORDERED: Haloperidol Inj 5 MG/ML Ampul ONE (10:19)
[2017-12-26] MEDS: levETIRAcetam 500 MG Tablet PO SCH ×2 (10:53→19:26)
--- NOTE | 2017-12-26 10:59 | P.PNPSY ---
Subjective Chief Complaint: - Remarks: Patient seen for follow up; chart reviewed. Discussion with nursing staff reported that patient with no behavioral disturbances, slept well, has not had ETO since several days ago, labs recently showed within normal limit asleep was noted to be, cooperative. But later during the day was noted the patient had become agitated yelling on the unit had be redirected and put in seclusion for 10 minutes and redirected back to his bed after being given ETO of Haldol 5 mg / 2 mg of Ativan IM for agitation. Patient was noted to be confused during episode, rambling and yelling. Review of Systems All other systems reviewed negative except as stated in HPI Mental Status Examination Appearance: Appropriate Consciousness: Other (sleepy but easily arouses) Orientation: Person, Place (hospital) Motor Activity: Normal gait Speech: Unremarkable Language: Other ([place]) Fund of Knowledge: Poor Attention and Concentration: Inadequate Memory: Impaired Mood: Angry, Irritable Affect: Irritable Thought Process & Associations: Other ([place]) Thought Content: Other (Poverty of thought) Hallucination Type: None Delusion Type: None Suicidal Ideation: No Suicidal Plan: No Suicidal Intention: No Homicidal Ideation: No Homicidal Plan: No Homicidal Intention: No Insight: Poor Judgment: Poor Assessment and Plan - Assessment (1) Dementia with behavioral disturbance Code(s): F03.91 - Unspecified dementia with behavioral disturbance Status: Acute - Plan Plan: Patient continues to have episodic periods of agitation which she experienced today had required ETO and redirection. Patient has not been consistent with frequent episodes of agitation last one prior to this was several days ago. Patient has periods of appropriate behavior being calm pleasant and manageable. We will consider adding Depakote if episodes continue to increase. We will continue current treatment. Continue to monitor mood and behavior. Patient to continue one-to-one observation for safety. Discharge planning a progress. Justification for Continued Inpatient Stay: At risk of further decompensation a lower level of care. (1) Dementia with behavioral disturbance Qualifiers: Dementia type: Alzheimer's disease Alzheimer's disease onset: other onset Qualified Code(s): G30.8 - Other Alzheimer's disease; F02.81 - Dementia in other diseases classified elsewhere with behavioral disturbance
--- NOTE | 2017-12-26 13:21 | P.TTN ---
- Patient Problems Problems: 1. Discharge planning 2. Medication compliance 3. Knowledge deficit 4. Lack of coping skills - Progress Toward Goals Provider Present: Dr. Ashely Hernandez Provider Input: 12/24/17: Pt continues to be placement challenge: behaviors have been inconsistent, requiring significant redirection, occasional medication intervention. 12/15/17: Pt continues to be placement challenge; behaviors are more consistent. 12/01/17: pt continues to demonstrate more consistent behaviors , reduced agitation, continuing medical stabilization, progress noted by Psychiatrist. Continuation of search for appropriate placement. . 11/26/2017' patient is less agitated, medication stablization still be address. 11/25/2017 ; patient has had to be given ETO's during the evening time, redirect with aggressive behavior. Patient has been stable psych for the last week; however he has recently had an altered mental status. 11/19/17: Pt continues to be stable, Angie continues to search for placement. Margaret and Manda to follow -up with legal department issues. Nurse(s) Present: ABIMAEL Blevins, Nurse Input: 11/26/2017; patient has unpredictable moods, requires redirections , he is taking his medication and eating meals. 11/25/2017; patient's behavior is extremely unpredictable, require redirection and ETO's. Per nurse patient had to be ETO, due to aggressive behavior, patient was unable and extremely difficult to verbally redirect. 11/19/17: Per nurse, Vishnu; pt has had no documentable behaviors, he is re-directable. Psychiatric Counselors Present: Nicolasa Pérez LCSW, David Campos Jr., [facility], Angie Velasquez, [facility] Psychiatric Therapist Input: 12/24/17: OTR reports pt has been intermittently impulsive with his behaviors. Difficult to redirect. 12/15/17: counselor continues to seek placement at snf's. 11/26/2017 counselor continues to recall snf to update acceptance status for appropriate dc planning. 11/25/2017 Counselor will continue faxing packages to SNF skilling placement. Counselor will continue skilling skill nursing placement for an appropriate hospital discharge. Angie continuing to f/u with snf placement. Group Spec/RT/OT/AARON Present: Tamiko Godoy, TERESA, GALEN Gardner, Obinna Johnson, OT, GALEN Menezes Group Spec/RT/OT/AARON Input: 12/24/17: Pt is unable to and is inappropriate to attend groups based on his cognition. 12/15/17: Pt has been unable to attend groups; confusion and physical limitations. 12/01/17: Pt has been unable to attend groups d/t physical limitations. 11/26/2017 per RT patient has been unable due to physical limitations participate with groups and activities. 06/2017; per RT patient has been unable to physically or mentally participate with groups/activities. Per RT patient has been unable to appropriately participate with groups or activities. 11/19/17: Pt has been unable to tolerate groups. Occupational Therapist Input: 11/18/17: Pt continues to require physical assistance to complete ADLS, pt is not currently receiving skilled occupational therapy services, assistance is provided by other staff (pt is 1:1 supervision; falls risk). Clinical Coordinator Input: Manda to follow-up with potential legal issues. Additional Input: 12/24/17: Pt has had x 2 days with out additional medications. Pt continues to be a challenging placement based on his behaviorally inconsistent actions. - Discharge Plan Other (Patient will be dc to skill alf when linked) Angie is actively pursuing placement at appropriate snf. - Documentation Scribe: Obinna Johnson, MS, OTR Teaching Recipient: Patient
[2017-12-26] MEDS: QUEtiapine 100 MG Tablet PO SCH (18:02)
[2017-12-27] MEDS: levETIRAcetam 500 MG Tablet PO SCH ×3 (03:23→22:32)
[2017-12-27] MEDS: Insulin NovoLOG Aspart Correctional Sugar Inj SQ SCH ×5 (03:24→20:04)
--- NOTE | 2017-12-27 08:00 | P.PNPSY ---
Subjective Chief Complaint: - Remarks: Patient seen for follow up; chart reviewed. Discussion with nursing staff reported patient had no further behavioral disturbances after ETO yesterday afternoon; slept throughout the night. Patient was found lying hospital bed asleep and was able to wake up momentarily to engage in interview but limited cooperation due to somnolence. Patient denies any physical complaints at this time reports feeling "alright" denies any hallucinations. Patient continues with baseline confusion. Review of Systems All other systems reviewed negative except as stated in HPI Mental Status Examination Appearance: Appropriate Consciousness: Somnolent Orientation: Person, Place (hospital) Motor Activity: Normal gait Speech: Unremarkable Language: Other (R[place]) Fund of Knowledge: Poor Attention and Concentration: Inadequate Memory: Impaired Mood: Other ("Alright") Affect: Blunt Thought Process & Associations: Other ([place]) Thought Content: Other (Poverty of thought) Hallucination Type: None Delusion Type: None Suicidal Ideation: No Suicidal Plan: No Suicidal Intention: No Homicidal Ideation: No Homicidal Plan: No Homicidal Intention: No Insight: Poor Judgment: Poor Assessment and Plan - Assessment (1) Dementia with behavioral disturbance Code(s): F03.91 - Unspecified dementia with behavioral disturbance Status: Acute - Plan Plan: Patient with no behavioral services since ETO yesterday. Patient will continue one-to-one observation, continue to monitor mood and behavior. We will continue current treatment. Discharge planning in progress. Justification for Continued Inpatient Stay: At risk of further decompensation a lower level of care. (1) Dementia with behavioral disturbance Qualifiers: Dementia type: Alzheimer's disease Alzheimer's disease onset: other onset Qualified Code(s): G30.8 - Other Alzheimer's disease; F02.81 - Dementia in other diseases classified elsewhere with behavioral disturbance
[2017-12-27] MEDS: QUEtiapine 25 MG Tablet PO SCH ×4 (09:09→20:19)
[2017-12-27] MEDS: Gabapentin 400 MG Capsule PO SCH ×2 (09:09→20:18)
[2017-12-27] MEDS: QUEtiapine 100 MG Tablet PO SCH (16:33)
[2017-12-28] MEDS: Insulin NovoLOG Aspart Correctional Sugar Inj SQ SCH ×5 (06:38→21:13)
[2017-12-28] MEDS: QUEtiapine 25 MG Tablet PO SCH ×4 (08:10→20:08)
[2017-12-28] MEDS: Gabapentin 400 MG Capsule PO SCH ×2 (08:10→20:07)
--- NOTE | 2017-12-28 09:22 | P.PNPSY ---
Subjective Chief Complaint: - Remarks: Patient seen for follow, chart reviewed. Discussion nursing staff reported the patient had several verbal outburst yesterday but redirectable, no ETO's, compliant medication eating and drinking well. Patient was found lying hospital bed asleep was able to wake up to interact with interview. Patient said he is feeling "good" noted to be in good spirits, smiling at times. Patient denies any physical complaints at this time reports eating and drinking well with good appetite, denies any perceptional disturbances, suicidal homicidal ideations. Patient continues with baseline confusion. Review of Systems All other systems reviewed negative except as stated in HPI Mental Status Examination Appearance: Appropriate Consciousness: Alert Orientation: Person, Place (hospital) Motor Activity: Normal gait Speech: Unremarkable Language: Other ([place]) Fund of Knowledge: Poor Attention and Concentration: Inadequate Memory: Impaired Mood: Good Affect: Appropriate Thought Process & Associations: Other ([place]) Thought Content: Other (Poverty of thought) Hallucination Type: None Delusion Type: None Suicidal Ideation: No Suicidal Plan: No Suicidal Intention: No Homicidal Ideation: No Homicidal Plan: No Homicidal Intention: No Insight: Poor Judgment: Poor Assessment and Plan - Assessment (1) Dementia with behavioral disturbance Code(s): F03.91 - Unspecified dementia with behavioral disturbance Status: Acute - Plan Plan: Patient has been having occasional verbal outbursts but redirectable, no aggressive behavior, compliant with medications. We will continue to monitor mood and behavior. Discharge planning in progress. Patient continue one-to- one observation for safety. Justification for Continued Inpatient Stay: At risk of further decompensation a lower level of care. (1) Dementia with behavioral disturbance Qualifiers: Dementia type: Alzheimer's disease Alzheimer's disease onset: other onset Qualified Code(s): G30.8 - Other Alzheimer's disease; F02.81 - Dementia in other diseases classified elsewhere with behavioral disturbance
[2017-12-28] MEDS: levETIRAcetam 500 MG Tablet PO SCH ×2 (11:09→21:59)
[2017-12-28] MEDS ORDERED: Haloperidol Inj 5 MG/ML Ampul IM ONE (14:36)
[2017-12-28] MEDS: QUEtiapine 100 MG Tablet PO SCH (17:19)
[2017-12-29] MEDS: Insulin NovoLOG Aspart Correctional Sugar Inj SQ SCH ×5 (03:10→21:19)
[2017-12-29] MEDS: Gabapentin 400 MG Capsule PO SCH ×2 (09:24→21:19)
[2017-12-29] MEDS: QUEtiapine 25 MG Tablet PO SCH ×3 (09:25→21:19)
--- NOTE | 2017-12-29 09:26 | P.TTN ---
- Patient Problems Problems: 1. Discharge planning 2. Medication compliance 3. Knowledge deficit 4. Lack of coping skills - Progress Toward Goals Provider Present: Dr. Ashely Hernandez Provider Input: 12/29/17: Psychiatrist continuing to titrate Seroquel, pt continues to require ETOs per his behaviors. Pt continues to be placement challenge. 12/24/17: Pt continues to be placement challenge: behaviors have been inconsistent, requiring significant redirection, occasional medication intervention. 12/15/17: Pt continues to be placement challenge; behaviors are more consistent. 12/01/17: pt continues to demonstrate more consistent behaviors , reduced agitation, continuing medical stabilization, progress noted by Psychiatrist. Continuation of search for appropriate placement. . 11/26/2017' patient is less agitated, medication stablization still be address. 11/25/2017 ; patient has had to be given ETO's during the evening time, redirect with aggressive behavior. Patient has been stable psych for the last week; however he has recently had an altered mental status. 11/19/17: Pt continues to be stable, Angie continues to search for placement. Brent to follow -up with legal department issues. Nurse(s) Present: ABIMAEL Blevins, Nurse Input: 11/26/2017; patient has unpredictable moods, requires redirections , he is taking his medication and eating meals. 11/25/2017; patient's behavior is extremely unpredictable, require redirection and ETO's. Per nurse patient had to be ETO, due to aggressive behavior, patient was unable and extremely difficult to verbally redirect. 11/19/17: Per nurse, Vishnu; pt has had no documentable behaviors, he is re-directable. Psychiatric Counselors Present: Nicolasa Pérez LCSW, David Campos Jr., [facility], Angie Velasquez, [facility] Psychiatric Therapist Input: 12/29/17: Pt required ETOs on 12/26 and over the weekend 12/27 or 12/28 to control pt's outbursts and behaviors. 12/24/17: OTR reports pt has been intermittently impulsive with his behaviors. Difficult to redirect. 12/15/17: counselor continues to seek placement at snf's. 11/26/2017 counselor continues to recall snf to update acceptance status for appropriate dc planning. 11/25/2017 Counselor will continue faxing packages to SNF skilling placement. Counselor will continue skilling skill nursing placement for an appropriate hospital discharge. Angie continuing to f/u with snf placement. Group Spec/RT/OT/AARON Present: Tamiko Godoy, GPS, Tasneem Pedro, AARON, Obinna Johnson, OT, Ervin Molina, AARON Group Spec/RT/OT/AARON Input: 12/29: pt unable to tolerate groups, he does not attend. 12/24/17: Pt is unable to and is inappropriate to attend groups based on his cognition. 12/15/17: Pt has been unable to attend groups; confusion and physical limitations. 12/01/17: Pt has been unable to attend groups d/t physical limitations. 11/26/2017 per RT patient has been unable due to physical limitations participate with groups and activities. 11/25/2017; per RT patient has been unable to physically or mentally participate with groups/ activities. Per RT patient has been unable to appropriately participate with groups or activities. 11/19/17: Pt has been unable to tolerate groups. Occupational Therapist Input: 11/18/17: Pt continues to require physical assistance to complete ADLS, pt is not currently receiving skilled occupational therapy services, assistance is provided by other staff (pt is 1:1 supervision; falls risk). Clinical Coordinator Input: Manda to follow-up with potential legal issues. Additional Input: 12/29: Pt continues to be placement challenge, as his behaviors require ETOs for management. 12/24/17: Pt has had x 2 days with out additional medications. Pt continues to be a challenging placement based on his behaviorally inconsistent actions. - Discharge Plan Other (Patient will [facility] to [facility] when [facility]) Angie is actively pursuing placement at appropriate snf. - Documentation Scribe: Obinna Johnson, MS, OTR Teaching Recipient: Patient
[2017-12-29] MEDS: levETIRAcetam 500 MG Tablet PO SCH ×2 (11:25→23:11)
--- NOTE | 2017-12-29 15:42 | P.PNPSY ---
Subjective Chief Complaint: - Remarks: Patient seen for follow, chart reviewed. Discussion nursing staff reported the patient had received ETO yesterday due to episode of agitation which patient received Haldol 5 mg IM/Ativan 2 mg IM x1. Patient was found lying hospital bed asleep was able to wake up to interact with interview superficially with sitter at bedside and seen with nurse and medical student. Patient continues with concrete interactions with interview continues with baseline confusion denying any physical complaints at this time reporting his mood as being "alright" reports having adequate appetite without difficulty or bowel movement. Patient had refused afternoon dose of quetiapine but has not had any further episodes of agitation or irritability. Review of Systems All other systems reviewed negative except as stated in HPI Mental Status Examination Appearance: Appropriate Consciousness: Somnolent (But able to wake up for interview superficially) Orientation: Person, Place (hospital) Motor Activity: Normal gait Speech: Unremarkable Language: Other ([place]) Fund of Knowledge: Poor Attention and Concentration: Inadequate Memory: Impaired Mood: Other ("Alright") Affect: Appropriate Thought Process & Associations: Other ([place]) Thought Content: Other (Poverty of thought) Hallucination Type: None Delusion Type: None Suicidal Ideation: No Suicidal Plan: No Suicidal Intention: No Homicidal Ideation: No Homicidal Plan: No Homicidal Intention: No Insight: Poor Judgment: Poor Assessment and Plan - Assessment (1) Dementia with behavioral disturbance Code(s): F03.91 - Unspecified dementia with behavioral disturbance Status: Acute - Plan Plan: Patient this time continues with baseline confusion secondary to neurocognitive deficits. Patient has not had any further episodes of agitation or irritability since ETO yesterday but we will continue to monitor mood and behavior. Patient did refuse after a dose of quetiapine. We will continue to encourage to maintain compliance with treatment. Patient to continue one-to- one observation for safety. Discharge planning in progress. Justification for Continued Inpatient Stay: At risk of further decompensation a lower level of care. (1) Dementia with behavioral disturbance Qualifiers: Dementia type: Alzheimer's disease Alzheimer's disease onset: other onset Qualified Code(s): G30.8 - Other Alzheimer's disease; F02.81 - Dementia in other diseases classified elsewhere with behavioral disturbance
[2017-12-29] MEDS: QUEtiapine 100 MG Tablet PO SCH (17:26)
[2017-12-30] MEDS: Insulin NovoLOG Aspart Correctional Sugar Inj SQ SCH ×3 (05:59→11:48)
[2017-12-30] MEDS: QUEtiapine 25 MG Tablet PO SCH ×3 (08:09→22:48)
[2017-12-30] MEDS: Gabapentin 400 MG Capsule PO SCH ×2 (08:09→22:48)
[2017-12-30] MEDS: levETIRAcetam 500 MG Tablet PO SCH ×2 (10:28→22:48)
--- NOTE | 2017-12-30 15:53 | P.PNPSY ---
Subjective Chief Complaint: - Remarks: Patient seen for follow-up, chart reviewed. Discussion with nursing staff reported that patient yelling at times but able to be redirected, no episodes of agitation. Patient noted to be somnolent but able to interact concretely with staff. Patient denies any physical complaints continues to have baseline confusion. Patient appears to be tolerating medication regimen well with no episodes of agitation today. Review of Systems All other systems reviewed negative except as stated in HPI Mental Status Examination Appearance: Appropriate Consciousness: Somnolent Orientation: Person, Place (hospital) Motor Activity: Normal gait Speech: Unremarkable Language: Adequate Fund of Knowledge: Poor Attention and Concentration: Inadequate Memory: Impaired Mood: Other ("Alright") Affect: Appropriate Thought Process & Associations: Other ([place]) Thought Content: Other (Poverty of thought) Hallucination Type: None Delusion Type: None Suicidal Ideation: No Suicidal Plan: No Suicidal Intention: No Homicidal Ideation: No Homicidal Plan: No Homicidal Intention: No Insight: Poor Judgment: Poor Assessment and Plan - Assessment (1) Dementia with behavioral disturbance Code(s): F03.91 - Unspecified dementia with behavioral disturbance Status: Acute - Plan Plan: Patient able to tolerate medications well, occasional verbal outbursts and episodes of agitation easily redirectable today. Continue current treatment. Continue to monitor mood and behavior. Discharge planning in progress. Justification for Continued Inpatient Stay: At risk of further decompensation a lower level of care. (1) Dementia with behavioral disturbance Qualifiers: Dementia type: Alzheimer's disease Alzheimer's disease onset: other onset Qualified Code(s): G30.8 - Other Alzheimer's disease; F02.81 - Dementia in other diseases classified elsewhere with behavioral disturbance
[2017-12-30] MEDS: QUEtiapine 100 MG Tablet PO SCH (16:45)
[2017-12-30] MEDS ORDERED: Haloperidol Inj 5 MG/ML Ampul IM ONE (17:40)
[2017-12-30] MEDS ORDERED: Haloperidol Inj 5 MG/ML Ampul ONE (17:45)
[2017-12-31] MEDS: Gabapentin 400 MG Capsule PO SCH ×2 (08:18→20:46)
[2017-12-31] MEDS: QUEtiapine 25 MG Tablet PO SCH ×3 (08:18→20:46)
[2017-12-31] MEDS: levETIRAcetam 500 MG Tablet PO SCH ×2 (11:27→23:00)
--- NOTE | 2017-12-31 12:06 | P.TTN ---
- Patient Problems Problems: 1. Discharge planning 2. Medication compliance 3. Knowledge deficit 4. Lack of coping skills - Progress Toward Goals Provider Present: Dr. Bonnie De Jesus, Dr. Ashely Hernandez Provider Input: 12/31: Dr. Hernandez reports pt required ETO, Seroquel continues to be titrated (increased) per pt behaviors. Pt has 1:1 supervision (sitter), placement continues to be challenging. 12/29/17: Psychiatrist continuing to titrate Seroquel, pt continues to require ETOs per his behaviors. Pt continues to be placement challenge. 12/24/17: Pt continues to be placement challenge: behaviors have been inconsistent, requiring significant redirection, occasional medication intervention. 12/15/17: Pt continues to be placement challenge; behaviors are more consistent. 12/01/17: pt continues to demonstrate more consistent behaviors, reduced agitation, continuing medical stabilization, progress noted by Psychiatrist. Continuation of search for appropriate placement. . 11/26/2017' patient is less agitated, medication stablization still be address. 11/25/2017; patient has had to be given ETO's during the evening time, redirect with aggressive behavior. Patient has been stable psych for the last week; however he has recently had an altered mental status. : Pt continues to be stable, Angie continues to search for placement. Brent to follow-up with legal department issues. Nurse(s) Present: ABIMAEL Blevins, Nurse Input: 11/26/2017; patient has unpredictable moods, requires redirections , he is taking his medication and eating meals. 11/25/2017; patient's behavior is extremely unpredictable, require redirection and ETO's. Per nurse patient had to be ETO, due to aggressive behavior, patient was unable and extremely difficult to verbally redirect. 11/19/17: Per nurse, Vishnu; pt has had no documentable behaviors, he is re-directable. Psychiatric Counselors Present: Nicolasa Pérez LCSW, David Campos Jr., [facility], Angie Velasquez, [facility] Psychiatric Therapist Input: 12/29/17: Pt required ETOs on 12/26 and over the weekend 12/27 or 12/28 to control pt's outbursts and behaviors. 12/24/17: OTR reports pt has been intermittently impulsive with his behaviors. Difficult to redirect. 12/15/17: counselor continues to seek placement at snf's. 11/26/2017 counselor continues to recall snf to update acceptance status for appropriate dc planning. 11/25/2017 Counselor will continue faxing packages to SNF skilling placement. Counselor will continue skilling skill nursing placement for an appropriate hospital discharge. Angie continuing to f/u with snf placement. Group Spec/RT/OT/AARON Present: Tamiko Godoy, [facility], Tasneem Pedro, AARON, Obinna Johnson, OT, Ervin Molina, AARON Group Spec/RT/OT/AARON Input: 12/31: Pt unable to tolerate or to attend groups. Pt is intermittently impulsive and inappropriate. 12/29: pt unable to tolerate groups, he does not attend. 12/24/17: Pt is unable to and is inappropriate to attend groups based on his cognition. 12/15/17: Pt has been unable to attend groups; confusion and physical limitations. 12/01/17: Pt has been unable to attend groups d/t physical limitations. 11/26/2017 per RT patient has been unable due to physical limitations participate with groups and activities. 06/2017; per RT patient has been unable to physically or mentally participate with groups/activities. Per RT patient has been unable to appropriately participate with groups or activities. 11/19/17: Pt has been unable to tolerate groups. Occupational Therapist Input: 11/18/17: Pt continues to require physical assistance to complete ADLS, pt is not currently receiving skilled occupational therapy services, assistance is provided by other staff (pt is 1:1 supervision; falls risk). Clinical Coordinator Input: Manda to follow-up with potential legal issues. Additional Input: 12/31: Dr. Hernandez reports pt required ETO, Seroquel continues to be titrated ( increased) per pt behaviors. Pt has 1:1 supervision (sitter), placement continues to be challenging. 12/29: Pt continues to be placement challenge, as his behaviors require ETOs for management. 12/24/17: Pt has had x 2 days with out additional medications. Pt continues to be a challenging placement based on his behaviorally inconsistent actions. - Discharge Plan Other ([facility] Angie is actively pursuing placement at appropriate snf. - Documentation Scribe: Obinna Johnson MS, OTR Teaching Recipient: Patient
[2017-12-31] MEDS: QUEtiapine 100 MG Tablet PO SCH (16:42)
--- NOTE | 2017-12-31 20:16 | P.PNPSY ---
Subjective Chief Complaint: - Remarks: Patient seen for follow-up, chart reviewed. Discussion with nursing staff reported that patient had required ETO last evening which likely but was with good behavioral control all morning. Patient was found asleep to be somnolent and superficially able to cooperate with interview. Patient appears to be having more confusion in the afternoons. Patient reportedly eating and drinking well will have occasional verbal outbursts but mostly redirectable. Review of Systems All other systems reviewed negative except as stated in HPI Mental Status Examination Appearance: Appropriate Consciousness: Somnolent Orientation: Person, Place (hospital) Motor Activity: Normal gait Speech: Unremarkable Language: Adequate Fund of Knowledge: Poor Attention and Concentration: Inadequate Memory: Impaired Mood: Other ("Alright") Affect: Appropriate Thought Process & Associations: Other ([place]) Thought Content: Other (Poverty of thought) Hallucination Type: None Delusion Type: None Suicidal Ideation: No Suicidal Plan: No Suicidal Intention: No Homicidal Ideation: No Homicidal Plan: No Homicidal Intention: No Insight: Poor Judgment: Poor Assessment and Plan - Assessment (1) Dementia with behavioral disturbance Code(s): F03.91 - Unspecified dementia with behavioral disturbance Status: Acute - Plan Plan: Patient continues with occasional verbal outbursts mostly directed redirectable but at times required ETO which patient received yesterday afternoon. Modifications of patient's quetiapine dose were made and patient did not receive ETO today. We will continue current treatment. We will continue to monitor mood and behavior. Discharge planning a progress. Justification for Continued Inpatient Stay: At risk of further decompensation at lower level care. (1) Dementia with behavioral disturbance Qualifiers: Dementia type: Alzheimer's disease Alzheimer's disease onset: other onset Qualified Code(s): G30.8 - Other Alzheimer's disease; F02.81 - Dementia in other diseases classified elsewhere with behavioral disturbance
[2018-01-01] MEDS: QUEtiapine 25 MG Tablet PO SCH ×3 (17:51→21:05)
[2018-01-01] MEDS: QUEtiapine 100 MG Tablet PO SCH (17:51)
[2018-01-01] MEDS: Gabapentin 400 MG Capsule PO SCH ×2 (17:51→21:05)
[2018-01-01] MEDS: levETIRAcetam 500 MG Tablet PO SCH ×2 (17:51→22:30)
[2018-01-01] MEDS ORDERED: Haloperidol Inj 5 MG/ML Ampul ONE (18:58)
--- NOTE | 2018-01-01 20:49 | P.PNPSY ---
Subjective Chief Complaint: - Remarks: Patient seen for follow-up, chart reviewed. Discussion with nursing staff reported that patient with no behavioral issues overnight, no ETOs. Patient was found lying on hospital bed, noted to be somnolent but able to wake up for interview. He states feeling "alright", reports having slept well, no physical complaints. Continues with baseline confusion. Review of Systems All other systems reviewed negative except as stated in HPI Mental Status Examination Appearance: Appropriate Consciousness: Somnolent (slightly) Orientation: Person, Place (hospital) Motor Activity: Normal gait Speech: Unremarkable Language: Adequate Fund of Knowledge: Poor Attention and Concentration: Inadequate Memory: Impaired Mood: Other ("Alright") Affect: Appropriate Thought Process & Associations: Other ([place]) Thought Content: Other (Poverty of thought) Hallucination Type: None Delusion Type: None Suicidal Ideation: No Suicidal Plan: No Suicidal Intention: No Homicidal Ideation: No Homicidal Plan: No Homicidal Intention: No Insight: Poor Judgment: Poor Assessment and Plan - Assessment (1) Dementia with behavioral disturbance Code(s): F03.91 - Unspecified dementia with behavioral disturbance Status: Acute - Plan Plan: Patient with no behavioral disturbances, no ETOs. Continue current treatment, continue to monitor mood and behavior. Discharge planning in progress. Justification for Continued Inpatient Stay: At risk for further decompensation at lower level of care. (1) Dementia with behavioral disturbance Qualifiers: Dementia type: Alzheimer's disease Alzheimer's disease onset: other onset Qualified Code(s): G30.8 - Other Alzheimer's disease; F02.81 - Dementia in other diseases classified elsewhere with behavioral disturbance
[2018-01-02] MEDS: QUEtiapine 25 MG Tablet PO SCH ×3 (09:33→21:26)
[2018-01-02] MEDS: Gabapentin 400 MG Capsule PO SCH ×2 (09:33→21:26)
[2018-01-02] MEDS: levETIRAcetam 500 MG Tablet PO SCH (15:42)
--- NOTE | 2018-01-02 17:51 | P.PNPSY ---
Subjective Chief Complaint: - Remarks: Patient seen for follow-up, chart reviewed. Discussion with nursing staff reported that patient had ETO later in the afternoon yesterday. Patient found sitting on hospital bed noted to be in good spirits, stating that he is feeling well, good appetite, no difficulty with bowel movement. Patient noted with adequate interaction with staff. Review of Systems All other systems reviewed negative except as stated in HPI Mental Status Examination Appearance: Appropriate Consciousness: Alert Orientation: Person, Place (hospital) Motor Activity: Normal gait Speech: Unremarkable Language: Adequate Fund of Knowledge: Poor Attention and Concentration: Inadequate Memory: Impaired Mood: Other ("Alright") Affect: Appropriate Thought Process & Associations: Other ([place]) Thought Content: Other (Poverty of thought) Hallucination Type: None Delusion Type: None Suicidal Ideation: No Suicidal Plan: No Suicidal Intention: No Homicidal Ideation: No Homicidal Plan: No Homicidal Intention: No Insight: Poor Judgment: Poor Assessment and Plan - Assessment (1) Dementia with behavioral disturbance Code(s): F03.91 - Unspecified dementia with behavioral disturbance Status: Acute - Plan Plan: Patient continues with episodes of agitation but are lessening in frequency and in duration. Will continue current treatment, continue to monitor mood and behavior. Discharge planning in progress. Justification for Continued Inpatient Stay: At risk for further decompensation at lower level of care. (1) Dementia with behavioral disturbance Qualifiers: Dementia type: Alzheimer's disease Alzheimer's disease onset: other onset Qualified Code(s): G30.8 - Other Alzheimer's disease; F02.81 - Dementia in other diseases classified elsewhere with behavioral disturbance
[2018-01-03] MEDS: QUEtiapine 25 MG Tablet PO SCH ×3 (08:00→21:44)
[2018-01-03] MEDS: Gabapentin 400 MG Capsule PO SCH ×2 (08:00→21:43)
[2018-01-03] MEDS: levETIRAcetam 500 MG Tablet PO SCH ×2 (12:36→21:42)
[2018-01-03] MEDS: QUEtiapine 100 MG Tablet PO SCH ×2 (18:05→18:07)
--- NOTE | 2018-01-03 18:07 | P.PNPSY ---
Subjective Chief Complaint: - Remarks: Patient was seen and case discussed with nursing. Patient is pleasant and cooperative on exam. He has been on good behavior today and has not had any outbursts. No ETO's needed. Remains grossly disorganized and confused Mental Status Examination Appearance: Appropriate Consciousness: Alert Orientation: Person, Place (hospital) Motor Activity: Normal gait Speech: Unremarkable Language: Adequate Fund of Knowledge: Poor Attention and Concentration: Inadequate Memory: Impaired Mood: Other ("Alright") Affect: Appropriate Thought Process & Associations: Other ([place]) Thought Content: Other (Poverty of thought) Hallucination Type: None Delusion Type: None Suicidal Ideation: No Suicidal Plan: No Suicidal Intention: No Homicidal Ideation: No Homicidal Plan: No Homicidal Intention: No Insight: Poor Judgment: Poor Assessment and Plan - Assessment (1) Dementia with behavioral disturbance Code(s): F03.91 - Unspecified dementia with behavioral disturbance Status: Acute - Plan Plan: Continue current treatment plan Justification for Continued Inpatient Stay: Patient would decompensate in a less restrictive setting (1) Dementia with behavioral disturbance Qualifiers: Dementia type: Alzheimer's disease Alzheimer's disease onset: other onset Qualified Code(s): G30.8 - Other Alzheimer's disease; F02.81 - Dementia in other diseases classified elsewhere with behavioral disturbance
[2018-01-04] MEDS: levETIRAcetam 500 MG Tablet PO SCH ×3 (04:55→23:45)
[2018-01-04] MEDS: Gabapentin 400 MG Capsule PO SCH ×2 (08:28→20:12)
[2018-01-04] MEDS: QUEtiapine 25 MG Tablet PO SCH ×3 (08:28→20:13)
--- NOTE | 2018-01-04 13:59 | P.PNPSY ---
Subjective Chief Complaint: - Remarks: Patient was seen and case discussed with nursing. Patient remains somnolent throughout the day and hyperactive between 5:56 PM. He has not had any outbursts or agitation today. Pleasant and cooperative during exam Mental Status Examination Appearance: Appropriate Consciousness: Alert Orientation: Person, Place (hospital) Motor Activity: Normal gait Speech: Unremarkable Language: Adequate Fund of Knowledge: Poor Attention and Concentration: Inadequate Memory: Impaired Mood: Other ("Alright") Affect: Appropriate Thought Process & Associations: Other ([place]) Thought Content: Other (Poverty of thought) Hallucination Type: None Delusion Type: None Suicidal Ideation: No Suicidal Plan: No Suicidal Intention: No Homicidal Ideation: No Homicidal Plan: No Homicidal Intention: No Insight: Poor Judgment: Poor Assessment and Plan - Assessment (1) Dementia with behavioral disturbance Code(s): F03.91 - Unspecified dementia with behavioral disturbance Status: Acute - Plan Plan: Continue current treatment plan Justification for Continued Inpatient Stay: Patient would decompensate in a less restrictive setting (1) Dementia with behavioral disturbance Qualifiers: Dementia type: Alzheimer's disease Alzheimer's disease onset: other onset Qualified Code(s): G30.8 - Other Alzheimer's disease; F02.81 - Dementia in other diseases classified elsewhere with behavioral disturbance
[2018-01-04] MEDS: QUEtiapine 100 MG Tablet PO SCH (16:47)
[2018-01-05] MEDS: QUEtiapine 25 MG Tablet PO SCH ×3 (09:17→20:29)
[2018-01-05] MEDS: Gabapentin 400 MG Capsule PO SCH ×2 (09:17→20:29)
[2018-01-05] MEDS: levETIRAcetam 500 MG Tablet PO SCH ×2 (11:59→22:02)
--- NOTE | 2018-01-05 16:22 | P.PNPSY ---
Subjective Chief Complaint: - Remarks: Patient seen for follow-up, chart reviewed. Discussion with nursing staff reported that patient with no behavioral disturbances at a good weekend no ETO' s continue to be calm and pleasant. Patient was found lying hospital bed noted B, cooperative. Patient states he is feeling "alright" denying any physical complaints at this time states that his weekend went well although continues with baseline confusion and poor recall. He denies any physical complaints at this time reports eating and drinking well with adequate bowel movement. Patient reports tolerating medications well with no adverse drug reactions noted. Review of Systems All other systems reviewed negative except as stated in HPI Mental Status Examination Appearance: Appropriate Consciousness: Alert Orientation: Person, Place (hospital) Motor Activity: Normal gait Speech: Unremarkable Language: Adequate Fund of Knowledge: Poor Attention and Concentration: Inadequate Memory: Impaired Mood: Other ("Alright") Affect: Appropriate Thought Process & Associations: Other ([place]) Thought Content: Other (Poverty of thought) Hallucination Type: None Delusion Type: None Suicidal Ideation: No Suicidal Plan: No Suicidal Intention: No Homicidal Ideation: No Homicidal Plan: No Homicidal Intention: No Insight: Poor Judgment: Poor Assessment and Plan - Assessment (1) Dementia with behavioral disturbance Code(s): F03.91 - Unspecified dementia with behavioral disturbance Status: Acute - Plan Plan: Patient this time continues with good behavioral control not requiring ETO's over the weekend and compliant with treatment. We will continue current treatment. We will continue to monitor mood and behavior. Discharge planning a progress. Justification for Continued Inpatient Stay: At risk of further decompensation at lower level care. (1) Dementia with behavioral disturbance Qualifiers: Dementia type: Alzheimer's disease Alzheimer's disease onset: other onset Qualified Code(s): G30.8 - Other Alzheimer's disease; F02.81 - Dementia in other diseases classified elsewhere with behavioral disturbance
[2018-01-05] MEDS: QUEtiapine 100 MG Tablet PO SCH (17:52)
[2018-01-05] MEDS ORDERED: Haloperidol Inj 5 MG/ML Ampul ONE (18:16)
[2018-01-05] MEDS ORDERED: Haloperidol Inj 5 MG/ML Ampul IM ONE (19:15)
--- NOTE | 2018-01-06 10:15 | P.TTN ---
- Patient Problems Problems: 1. Discharge planning 2. Medication compliance 3. Knowledge deficit 4. Lack of coping skills - Progress Toward Goals Provider Present: Dr. Bonnie De Jesus, Dr. Ashely Hernandez Provider Input: 01/05/2018; per doctor patient's medication continues to require adjustment due to evening behvior. 12/31: Dr. Hernandez reports pt required ETO, Seroquel continues to be titrated (increased) per pt behaviors. Pt has 1:1 supervision (sitter), placement continues to be challenging. 12/29/17 : Psychiatrist continuing to titrate Seroquel, pt continues to require ETOs per his behaviors. Pt continues to be placement challenge. 12/24/17: Pt continues to be placement challenge: behaviors have been inconsistent, requiring significant redirection, occasional medication intervention. 12/15/17: Pt continues to be placement challenge; behaviors are more consistent. 12/01/17: pt continues to demonstrate more consistent behaviors, reduced agitation, continuing medical stabilization, progress noted by Psychiatrist. Continuation of search for appropriate placement. . 11/26/2017' patient is less agitated, medication stablization still be address. 11/25/2017; patient has had to be given ETO's during the evening time, redirect with aggressive behavior. Patient has been stable psych for the last week; however he has recently had an altered mental status. 11/19/17: Pt continues to be stable, Angie continues to search for placement. Brent to follow-up with legal department issues. Nurse(s) Present: RN, Nurse Input: 12/06/2017; patient continues to require a 1:1 ongoing redirection and prompting requires. 11/26/2017; patient has unpredictable moods, requires redirections, he is taking his medication and eating meals. 11/25/2017; patient 's behavior is extremely unpredictable, require redirection and ETO's. Per nurse patient had to be ETO, due to aggressive behavior, patient was unable and extremely difficult to verbally redirect. 11/19/17: Per nurseVishnu; pt has had no documentable behaviors, he is re-directable. Psychiatric Counselors Present: Nicolasa Pérez LCSW, David Campos Jr., [facility], Angie Velasquez, [facility] Psychiatric Therapist Input: 01/05/2018; Counselor will continue working with family and dc neighborhood planner with appropriate dc to skill nursing. 12/29/17: Pt required ETOs on 12/26 and over the weekend 12/27 or 12/28 to control pt's outbursts and behaviors. 12/24/17: OTR reports pt has been intermittently impulsive with his behaviors. Difficult to redirect. 12/15/17: counselor continues to seek placement at snf's. 11/26/2017 counselor continues to recall snf to update acceptance status for appropriate dc planning. 11/25/2017 Counselor will continue faxing packages to SNF skilling placement. Counselor will continue skilling skill nursing placement for an appropriate hospital discharge. Angie continuing to f/u with snf placement. Group Spec/RT/OT/AARON Present: Tamiko Godoy, GPS, Tasneem Pedro AARON, Obinna Johnson, OT, Ervin Molina, AARON Group Spec/RT/OT/AARON Input: 01/06/2018: per PT patient lacks the ability to attend groups or activities due to unpredictable behavior. 12/31: Pt unable to tolerate or to attend groups. Pt is intermittently impulsive and inappropriate. 12/29: pt unable to tolerate groups, he does not attend. 12/24/17: Pt is unable to and is inappropriate to attend groups based on his cognition. 12/15/17 : Pt has been unable to attend groups; confusion and physical limitations. 12/01: Pt has been unable to attend groups d/t physical limitations. 11/26/2017 per RT patient has been unable due to physical limitations participate with groups and activities. 11/25/2017; per RT patient has been unable to physically or mentally participate with groups/activities. Per RT patient has been unable to appropriately participate with groups or activities. 11/19/17: Pt has been unable to tolerate groups. Occupational Therapist Input: 11/18/17: Pt continues to require physical assistance to complete ADLS, pt is not currently receiving skilled occupational therapy services, assistance is provided by other staff (pt is 1:1 supervision; falls risk). Clinical Coordinator Input: Manda to follow-up with potential legal issues. Additional Input: 12/31: Dr. Hernandez reports pt required ETO, Seroquel continues to be titrated ( increased) per pt behaviors. Pt has 1:1 supervision (sitter), placement continues to be challenging. 12/29: Pt continues to be placement challenge, as his behaviors require ETOs for management. 12/24/17: Pt has had x 2 days with out additional medications. Pt continues to be a challenging placement based on his behaviorally inconsistent actions. - Discharge Plan Other (Patient will be dc to skill [facility] when linked) Angie is actively pursuing placement at appropriate snf. - Documentation Scribe: Obinna Johnson MS, OTR Teaching Recipient: Patient
[2018-01-06] MEDS: Gabapentin 400 MG Capsule PO SCH ×2 (10:23→21:52)
[2018-01-06] MEDS: levETIRAcetam 500 MG Tablet PO SCH ×2 (10:23→21:53)
[2018-01-06] MEDS: QUEtiapine 25 MG Tablet PO SCH ×3 (10:24→21:53)
--- NOTE | 2018-01-06 15:54 | P.PNPSY ---
Subjective Chief Complaint: - Remarks: Patient seen for follow up; chart reviewed. Discussion with nursing staff that patient had receive ETO yesterday afternoon. I will night and thereafter noted to be responding easier with ETO's. Patient was found lying in hospital bed was able to wake up to interact with interview denying physical complaints, reporting mood being "alright" continues with baseline confusion. Patient eating and drinking well with no difficulty or bowel movement at this time. Review of Systems All other systems reviewed negative except as stated in HPI Mental Status Examination Appearance: Appropriate Consciousness: Alert Orientation: Person, Place (hospital) Motor Activity: Normal gait Speech: Unremarkable Language: Adequate Fund of Knowledge: Poor Attention and Concentration: Inadequate Memory: Impaired Mood: Other ("Alright") Affect: Appropriate Thought Process & Associations: Other ([place]) Thought Content: Other (Poverty of thought) Hallucination Type: None Delusion Type: None Suicidal Ideation: No Suicidal Plan: No Suicidal Intention: No Homicidal Ideation: No Homicidal Plan: No Homicidal Intention: No Insight: Poor Judgment: Poor Assessment and Plan - Assessment (1) Dementia with behavioral disturbance Code(s): F03.91 - Unspecified dementia with behavioral disturbance Status: Acute - Plan Plan: Patient continues with baseline confusion continues require episodic ETO for agitation but reasonably redirectable after with no further behavioral disturbances. We will continue current treatment. Continue to monitor mood and behavior. Discharge planning a progress. Justification for Continued Inpatient Stay: At risk of further decompensation at lower level care. (1) Dementia with behavioral disturbance Qualifiers: Dementia type: Alzheimer's disease Alzheimer's disease onset: other onset Qualified Code(s): G30.8 - Other Alzheimer's disease; F02.81 - Dementia in other diseases classified elsewhere with behavioral disturbance
[2018-01-06] MEDS: QUEtiapine 100 MG Tablet PO SCH (18:03)
[2018-01-06] MEDS ORDERED: Haloperidol Inj 5 MG/ML Ampul ONE (18:27)
[2018-01-06] MEDS ORDERED: Haloperidol Inj 5 MG/ML Ampul IM ONE (18:30)
[2018-01-07] MEDS: Gabapentin 400 MG Capsule PO SCH ×2 (08:40→21:18)
[2018-01-07] MEDS: QUEtiapine 25 MG Tablet PO SCH ×3 (08:40→21:18)
[2018-01-07] MEDS: levETIRAcetam 500 MG Tablet PO SCH ×2 (12:03→22:51)
[2018-01-07] MEDS: QUEtiapine 100 MG Tablet PO SCH (19:22)
--- NOTE | 2018-01-07 22:23 | P.PNPSY ---
Subjective Chief Complaint: - Remarks: Patient seen for follow-up, chart reviewed. Discussion with nursing staff reported that patient patient receive ETO last evening but no further behavioral disturbances. Patient continues require redirection at times but not physically aggressive. Patient denies any physical complaints reports his mood being good" denying any difficulty with ambulation denying any difficulty with eating or drinking and tolerating medications well. Review of Systems All other systems reviewed negative except as stated in HPI Mental Status Examination Appearance: Appropriate Consciousness: Alert Orientation: Person, Place (hospital) Motor Activity: Normal gait Speech: Unremarkable Language: Adequate Fund of Knowledge: Poor Attention and Concentration: Inadequate Memory: Impaired Mood: Other ("Alright") Affect: Appropriate Thought Process & Associations: Other ([place]) Thought Content: Other (Poverty of thought) Hallucination Type: None Delusion Type: None Suicidal Ideation: No Suicidal Plan: No Suicidal Intention: No Homicidal Ideation: No Homicidal Plan: No Homicidal Intention: No Insight: Poor Judgment: Poor Assessment and Plan - Assessment (1) Dementia with behavioral disturbance Code(s): F03.91 - Unspecified dementia with behavioral disturbance Status: Acute - Plan Plan: Patient continues with baseline confusion, continue with one-to-one observation for safety. Continue current treatment. Continue to monitor mood and behavior. Discharge planning in progress. Justification for Continued Inpatient Stay: At risk of further decompensation at lower level care. (1) Dementia with behavioral disturbance Qualifiers: Dementia type: Alzheimer's disease Alzheimer's disease onset: other onset Qualified Code(s): G30.8 - Other Alzheimer's disease; F02.81 - Dementia in other diseases classified elsewhere with behavioral disturbance
[2018-01-08] MEDS: QUEtiapine 25 MG Tablet PO SCH ×3 (08:55→20:44)
[2018-01-08] MEDS: Gabapentin 400 MG Capsule PO SCH ×2 (08:55→20:44)
[2018-01-08] MEDS: levETIRAcetam 500 MG Tablet PO SCH ×3 (15:04→23:59)
[2018-01-08] MEDS: QUEtiapine 100 MG Tablet PO SCH (16:00)
--- NOTE | 2018-01-08 18:58 | P.PNPSY ---
Subjective Chief Complaint: - Remarks: Patient seen for follow up; chart reviewed. Discussion with nursing staff reported patient quite no ETO's as a cooperative and pleasant. Patient was found lying hospital bed was noted to be working physical therapy prior to interview. Patient state he is feeling exhausted after working with physical therapy but states that his mood has been "alright" patient denies any physical complaints at this time. Denies any perceptional service of delusions. Patient reports eating and drinking well with no difficulty with bowel movement. Review of Systems All other systems reviewed negative except as stated in HPI Mental Status Examination Appearance: Appropriate Consciousness: Alert Orientation: Person, Place (hospital) Motor Activity: Normal gait Speech: Unremarkable Language: Adequate Fund of Knowledge: Poor Attention and Concentration: Inadequate Memory: Impaired Mood: Other ("Alright") Affect: Appropriate Thought Process & Associations: Other ([place]) Thought Content: Other (Poverty of thought) Hallucination Type: None Delusion Type: None Suicidal Ideation: No Suicidal Plan: No Suicidal Intention: No Homicidal Ideation: No Homicidal Plan: No Homicidal Intention: No Insight: Poor Judgment: Poor Assessment and Plan - Assessment (1) Dementia with behavioral disturbance Code(s): F03.91 - Unspecified dementia with behavioral disturbance Status: Acute - Plan Plan: Patient continued with baseline confusion, no behavioral services has been calm and cooperative with staff, working with physical therapy. We will continue current treatment. We will continue to monitor mood and behavior. Discharge planning in progress. Justification for Continued Inpatient Stay: At risk of further decompensation at lower level care. (1) Dementia with behavioral disturbance Qualifiers: Dementia type: Alzheimer's disease Alzheimer's disease onset: other onset Qualified Code(s): G30.8 - Other Alzheimer's disease; F02.81 - Dementia in other diseases classified elsewhere with behavioral disturbance
[2018-01-09] MEDS: QUEtiapine 25 MG Tablet PO SCH ×3 (08:46→21:02)
[2018-01-09] MEDS: Gabapentin 400 MG Capsule PO SCH ×2 (08:46→21:02)
[2018-01-09] MEDS: levETIRAcetam 500 MG Tablet PO SCH ×2 (09:58→21:01)
--- NOTE | 2018-01-09 14:39 | P.PNPSY ---
Subjective Chief Complaint: - Remarks: Patient seen for follow-up, chart reviewed. Discussion with nursing staff reported that patient with no behavioral services has not had ETO's for several days now. Patient was found lying hospital bed noted B, cooperative. Patient continues to report feeling "alright" with no behavioral disturbances reports eating and drinking well with no difficulty with bowel movement. Patient continues with baseline confusion. Review of Systems All other systems reviewed negative except as stated in HPI Mental Status Examination Appearance: Appropriate Consciousness: Alert Orientation: Person, Place (hospital) Motor Activity: Normal gait Speech: Unremarkable Language: Adequate Fund of Knowledge: Poor Attention and Concentration: Inadequate Memory: Impaired Mood: Other ("Alright") Affect: Appropriate Thought Process & Associations: Other ([place]) Thought Content: Other (Poverty of thought) Hallucination Type: None Delusion Type: None Suicidal Ideation: No Suicidal Plan: No Suicidal Intention: No Homicidal Ideation: No Homicidal Plan: No Homicidal Intention: No Insight: Poor Judgment: Poor Assessment and Plan - Assessment (1) Dementia with behavioral disturbance Code(s): F03.91 - Unspecified dementia with behavioral disturbance Status: Acute - Plan Plan: Patient continues with baseline confusion, has not had any behavioral disturbances or agitation for several days now and in good behavioral control. Continue current treatment. Continue to monitor mood and behavior. Discharge planning in progress. Justification for Continued Inpatient Stay: At risk of further decompensation at lower level care. (1) Dementia with behavioral disturbance Qualifiers: Dementia type: Alzheimer's disease Alzheimer's disease onset: other onset Qualified Code(s): G30.8 - Other Alzheimer's disease; F02.81 - Dementia in other diseases classified elsewhere with behavioral disturbance
[2018-01-09] MEDS: QUEtiapine 100 MG Tablet PO SCH (17:58)
[2018-01-10] MEDS: levETIRAcetam 500 MG Tablet PO SCH ×3 (01:40→21:24)
[2018-01-10] MEDS: QUEtiapine 25 MG Tablet PO SCH ×3 (11:02→21:24)
[2018-01-10] MEDS: Gabapentin 400 MG Capsule PO SCH ×2 (11:02→21:24)
--- NOTE | 2018-01-10 13:54 | P.PNPSY ---
Subjective Chief Complaint: - Remarks: I have seen today this patient for psychiatric reevaluation. The patient is found sleeping in his room, but he is arousable. The patient is calm, superficially cooperative, pleasantly confused. He does not know where he is, he does not know the date, but he denies pain, denies distress, reports good mood. The patient denies a dermatology of depression, denies suicidal enemas ideation, denies visual and auditory hallucinations. The patient has been doing much better in the last 4 days, he has not needed ETO's has been taking his medications without significant side effects. Mental Status Examination Appearance: Appropriate Consciousness: Alert Orientation: Person, Place (hospital) Motor Activity: Normal gait Speech: Unremarkable Language: Adequate Fund of Knowledge: Poor Attention and Concentration: Inadequate Memory: Impaired Mood: Other ("Alright") Affect: Appropriate Thought Process & Associations: Other ([place]) Thought Content: Other (Poverty of thought) Hallucination Type: None Delusion Type: None Suicidal Ideation: No Suicidal Plan: No Suicidal Intention: No Homicidal Ideation: No Homicidal Plan: No Homicidal Intention: No Insight: Fair Judgment: Impulsive Assessment and Plan - Assessment (1) Dementia with behavioral disturbance Code(s): F03.91 - Unspecified dementia with behavioral disturbance Status: Acute - Plan Plan: Continue current psychotropic regimen. Justification for Continued Inpatient Stay: Continue psychiatric hospitalization for stabilization (1) Dementia with behavioral disturbance Qualifiers: Dementia type: Alzheimer's disease Alzheimer's disease onset: other onset Qualified Code(s): G30.8 - Other Alzheimer's disease; F02.81 - Dementia in other diseases classified elsewhere with behavioral disturbance
[2018-01-10] MEDS: QUEtiapine 100 MG Tablet PO SCH (16:42)
[2018-01-11] MEDS: levETIRAcetam 500 MG Tablet PO SCH ×3 (03:38→10:30)
[2018-01-11] MEDS: Gabapentin 400 MG Capsule PO SCH ×2 (10:25→20:53)
[2018-01-11] MEDS: QUEtiapine 25 MG Tablet PO SCH ×3 (10:26→20:53)
--- NOTE | 2018-01-11 12:42 | P.PNPSY ---
Subjective Chief Complaint: - Remarks: Pt seen and discussed with staff. Chart reviewed. entry level staff accountant report that pt continues to get irritable with care and sundowns around 5 (yelling ) but has not been physically aggressively or required ETO today. He was compliant with medications and eating meals. Mental Status Examination Appearance: Appropriate Consciousness: Alert Orientation: Person, Place (hospital) Motor Activity: Normal gait Speech: Unremarkable Language: Adequate Fund of Knowledge: Poor Attention and Concentration: Inadequate Memory: Impaired Mood: Other ("pretty good") Affect: Appropriate, Other (smiling) Thought Process & Associations: Other (poverty of thought) Thought Content: Other (Poverty of thought) Hallucination Type: None Delusion Type: None Suicidal Ideation: No Suicidal Plan: No Suicidal Intention: No Homicidal Ideation: No Homicidal Plan: No Homicidal Intention: No Insight: Fair Judgment: Impulsive Assessment and Plan - Assessment (1) Dementia with behavioral disturbance Code(s): F03.91 - Unspecified dementia with behavioral disturbance Status: Acute - Plan Plan: Continue current treatment plan. Justification for Continued Inpatient Stay: risk of decompensation (1) Dementia with behavioral disturbance Qualifiers: Dementia type: Alzheimer's disease Alzheimer's disease onset: other onset Qualified Code(s): G30.8 - Other Alzheimer's disease; F02.81 - Dementia in other diseases classified elsewhere with behavioral disturbance
[2018-01-11] MEDS: QUEtiapine 100 MG Tablet PO SCH (18:00)
[2018-01-12] MEDS: Gabapentin 400 MG Capsule PO SCH ×2 (09:08→21:03)
[2018-01-12] MEDS: QUEtiapine 25 MG Tablet PO SCH ×3 (09:09→21:04)
[2018-01-12] MEDS: levETIRAcetam 500 MG Tablet PO SCH ×2 (10:31→22:22)
--- NOTE | 2018-01-12 15:49 | P.PNPSY ---
Subjective Chief Complaint: - Remarks: Patient seen for follow-up, chart reviewed. Discussion with nursing staff reported that patient with no ETO's for the past 6 days, and more alert and more engaging in conversation. Patient was found sitting hospital chair noted become cooperative. Patient noted to be reactive and smiling with conversation. Patient denies any physical complaints denies any perceptional disturbances or delusions at this time. Patient continued with concrete thought process and continues with baseline confusion. Review of Systems All other systems reviewed negative except as stated in HPI Mental Status Examination Appearance: Appropriate Consciousness: Alert Orientation: Person, Place (hospital) Motor Activity: Normal gait Speech: Unremarkable Language: Adequate Fund of Knowledge: Poor Attention and Concentration: Inadequate Memory: Impaired Mood: Other ("pretty good") Affect: Appropriate, Other (smiling) Thought Process & Associations: Other (poverty of thought) Thought Content: Other (Poverty of thought) Hallucination Type: None Delusion Type: None Suicidal Ideation: No Suicidal Plan: No Suicidal Intention: No Homicidal Ideation: No Homicidal Plan: No Homicidal Intention: No Insight: Fair Judgment: Impulsive Assessment and Plan - Assessment (1) Dementia with behavioral disturbance Code(s): F03.91 - Unspecified dementia with behavioral disturbance Status: Acute - Plan Plan: Patient continues with baseline confusion no behavioral disturbances, no episodes of agitation, no ETO's for the past 6 days and cooperating and interacting adequately. Continue current treatment. Continue to monitor mood and behavior. Discharge planning in progress. Justification for Continued Inpatient Stay: At risk of further decompensation at lower level care. (1) Dementia with behavioral disturbance Qualifiers: Dementia type: Alzheimer's disease Alzheimer's disease onset: other onset Qualified Code(s): G30.8 - Other Alzheimer's disease; F02.81 - Dementia in other diseases classified elsewhere with behavioral disturbance
[2018-01-12] MEDS: QUEtiapine 100 MG Tablet PO SCH (17:52)
--- NOTE | 2018-01-13 09:54 | P.TTN ---
- Patient Problems Problems: 1. Discharge planning 2. Medication compliance 3. Knowledge deficit 4. Lack of coping skills - Progress Toward Goals Provider Present: Dr. Bonnie De Jesus, Dr. Ashely Hernandez Provider Input: 01/12/2018; per doctor no medication change, only as needed ETO' s; patient continue to need placement. 01/05/2018; per doctor patient's medication continues to require adjustment due to evening behvior. 12/31: Dr. Hernandez reports pt required ETO, Seroquel continues to be titrated (increased) per pt behaviors. Pt has 1:1 supervision (sitter), placement continues to be challenging. 12/29/17: Psychiatrist continuing to titrate Seroquel, pt continues to require ETOs per his behaviors. Pt continues to be placement challenge. 12/24/17: Pt continues to be placement challenge: behaviors have been inconsistent, requiring significant redirection, occasional medication intervention. 12/15/17: Pt continues to be placement challenge; behaviors are more consistent. 12/01/17: pt continues to demonstrate more consistent behaviors , reduced agitation, continuing medical stabilization, progress noted by Psychiatrist. Continuation of search for appropriate placement. . 11/26/2017' patient is less agitated, medication stablization still be address. 11/25/2017 ; patient has had to be given ETO's during the evening time, redirect with aggressive behavior. Patient has been stable psych for the last week; however he has recently had an altered mental status. 11/19/17: Pt continues to be stable, Angie continues to search for placement. Brent to follow -up with legal department issues. Nurse(s) Present: RN, Nurse Input: 01/12/2018; patient is eating and taking his medication, require some redirection and coaching with behavior. 01/05/2018; patient continues to require a 1:1 ongoing redirection and prompting requires. 11/26/2017; patient has unpredictable moods, requires redirections, he is taking his medication and eating meals. 11/25/2017; patient's behavior is extremely unpredictable, require redirection and ETO's. Per nurse patient had to be ETO, due to aggressive behavior, patient was unable and extremely difficult to verbally redirect. 11/19/17: Per nurse, Lue; pt has had no documentable behaviors, he is re-directable. Psychiatric Counselors Present: Nicolasa Pérez LCSW, David Campos Jr., [facility], Angie Velasquez, [facility] Psychiatric Therapist Input: 01/12/2018; DC marina porter continues to search placement throughout [place] for skill nursing; management will be addressing billing issues with . 01/05/2018; Counselor will continue working with family and dc marina porter with appropriate dc to skill nursing. 12/29/17: Pt required ETOs on 12/26 and over the weekend 12/27 or 12/28 to control pt's outbursts and behaviors. 12/24/17: OTR reports pt has been intermittently impulsive with his behaviors. Difficult to redirect. 12/15/17: counselor continues to seek placement at snf's. 11/26/2017 counselor continues to recall snf to update acceptance status for appropriate dc planning. 11/25/2017 Counselor will continue faxing packages to SNF skilling placement. Counselor will continue skilling skill nursing placement for an appropriate hospital discharge. Angie continuing to f/u with snf placement. Group Spec/RT/OT/AARON Present: Tamiko Godoy, GPS, GALEN Gardner, Obinna Johnson, OT, Ervin Molina, GALEN Group Spec/RT/OT/AARON Input: 01/12/2018; per PT patient continues to be unable to participate with activities. 01/06/2018: per PT patient lacks the ability to attend groups or activities due to unpredictable behavior. 12/31: Pt unable to tolerate or to attend groups. Pt is intermittently impulsive and inappropriate. 12/29: pt unable to tolerate groups, he does not attend. 12/24/17 : Pt is unable to and is inappropriate to attend groups based on his cognition. 12/15/17: Pt has been unable to attend groups; confusion and physical limitations. 12/01/17: Pt has been unable to attend groups d/t physical limitations. 11/26/2017 per RT patient has been unable due to physical limitations participate with groups and activities. 11/25/2017; per RT patient has been unable to physically or mentally participate with groups/activities. Per RT patient has been unable to appropriately participate with groups or activities. 11/19/17: Pt has been unable to tolerate groups. Occupational Therapist Input: 11/18/17: Pt continues to require physical assistance to complete ADLS, pt is not currently receiving skilled occupational therapy services, assistance is provided by other staff (pt is 1:1 supervision; falls risk). Clinical Coordinator Input: Manda to follow-up with potential legal issues. Additional Input: 12/31: Dr. Hernandez reports pt required ETO, Seroquel continues to be titrated ( increased) per pt behaviors. Pt has 1:1 supervision (sitter), placement continues to be challenging. 12/29: Pt continues to be placement challenge, as his behaviors require ETOs for management. 12/24/17: Pt has had x 2 days with out additional medications. Pt continues to be a challenging placement based on his behaviorally inconsistent actions. - Discharge Plan Other ([facility]) Angie is actively pursuing placement at appropriate snf. - Documentation Scribe: Obinna Johnson MS, OTR Teaching Recipient: Patient
[2018-01-13] MEDS: Gabapentin 400 MG Capsule PO SCH ×2 (13:32→20:35)
[2018-01-13] MEDS: QUEtiapine 25 MG Tablet PO SCH ×3 (13:33→20:35)
[2018-01-13] MEDS: levETIRAcetam 500 MG Tablet PO SCH ×2 (13:33→22:01)
--- NOTE | 2018-01-13 16:24 | P.PNPSY ---
Subjective Chief Complaint: - Remarks: Patient seen for follow-up, chart reviewed. Discussion with nursing staff reported that patient with no behavioral disturbances, no ETO's, cooperative. Patient was found sitting in chair and noted to be, cooperative, appropriate affect smiling at times. Patient reported feeling "alright" denying any physical complaints at this time. Patient continues with baseline confusion is feeling weak today. Patient refuse to work with physical therapy today. Review of Systems All other systems reviewed negative except as stated in HPI Mental Status Examination Appearance: Appropriate Consciousness: Alert Orientation: Person, Place (hospital) Motor Activity: Normal gait Speech: Unremarkable Language: Adequate Fund of Knowledge: Poor Attention and Concentration: Inadequate Memory: Impaired Mood: Other ("pretty good") Affect: Appropriate, Other (smiling) Thought Process & Associations: Other (poverty of thought) Thought Content: Other (Poverty of thought) Hallucination Type: None Delusion Type: None Suicidal Ideation: No Suicidal Plan: No Suicidal Intention: No Homicidal Ideation: No Homicidal Plan: No Homicidal Intention: No Insight: Fair Judgment: Impulsive Assessment and Plan - Assessment (1) Dementia with behavioral disturbance Code(s): F03.91 - Unspecified dementia with behavioral disturbance Status: Acute - Plan Plan: Patient continues with baseline confusion but no behavioral disturbances has been calm and cooperative and appropriately interacting with staff with good affect, smiling at times. Continue current treatment. Continue to monitor mood and behavior. Discharge planning in progress. Justification for Continued Inpatient Stay: At risk of further decompensation at lower level care. (1) Dementia with behavioral disturbance Qualifiers: Dementia type: Alzheimer's disease Alzheimer's disease onset: other onset Qualified Code(s): G30.8 - Other Alzheimer's disease; F02.81 - Dementia in other diseases classified elsewhere with behavioral disturbance
[2018-01-13] MEDS: QUEtiapine 100 MG Tablet PO SCH (18:45)
[2018-01-14] MEDS: Gabapentin 400 MG Capsule PO SCH ×2 (10:24→20:57)
[2018-01-14] MEDS: QUEtiapine 25 MG Tablet PO SCH ×3 (10:25→20:57)
--- NOTE | 2018-01-14 12:06 | P.TTN ---
- Patient Problems Problems: 1. Discharge planning 2. Medication compliance 3. Knowledge deficit 4. Lack of coping skills - Progress Toward Goals Provider Present: Dr. Bonnie De Jesus, Dr. Ashely Hernandez Provider Input: 01/14/2018 per doctor patient is to continue on current pharmacotherapy,. 01/12/2018; per doctor no medication change, only as needed ETO's; patient continue to need placement. 01/05/2018; per doctor patient's medication continues to require adjustment due to evening behvior. 12/31: Dr. Hernandez reports pt required ETO, Seroquel continues to be titrated (increased) per pt behaviors. Pt has 1:1 supervision (sitter), placement continues to be challenging. 12/29/17: Psychiatrist continuing to titrate Seroquel, pt continues to require ETOs per his behaviors. Pt continues to be placement challenge. 12/24/17: Pt continues to be placement challenge: behaviors have been inconsistent, requiring significant redirection, occasional medication intervention. 12/15/17: Pt continues to be placement challenge; behaviors are more consistent. 12/01/17: pt continues to demonstrate more consistent behaviors , reduced agitation, continuing medical stabilization, progress noted by Psychiatrist. Continuation of search for appropriate placement. . 11/26/2017' patient is less agitated, medication stablization still be address. 11/25/2017 ; patient has had to be given ETO's during the evening time, redirect with aggressive behavior. Patient has been stable psych for the last week; however he has recently had an altered mental status. 11/19/17: Pt continues to be stable, Angie continues to search for placement. Brent to follow -up with legal department issues. Nurse(s) Present: RN, Nurse Input: 01/14/2018 Mónica patient states he has not had an ETO in 7 days , patient oppositional behavior has decreased. 01/12/2018; patient is eating and taking his medication, require some redirection and coaching with behavior. 01/05/2018; patient continues to require a 1:1 ongoing redirection and prompting requires. 11/26/2017; patient has unpredictable moods, requires redirections, he is taking his medication and eating meals. 11/25/2017; patient 's behavior is extremely unpredictable, require redirection and ETO's. Per nurse patient had to be ETO, due to aggressive behavior, patient was unable and extremely difficult to verbally redirect. 11/19/17: Per nurse, Vishnu; pt has had no documentable behaviors, he is re-directable. Psychiatric Counselors Present: Nicolasa Pérez LCSW, David Campos Jr., [facility], Angie Velasquez, [facility] Psychiatric Therapist Input: 01/14/2018 Follow Up Clerk continues to work towards a good placement to result in a good discharge when patient is stabilized. 2017; DC program services planner continues to search placement throughout [place] for skill nursing; management will be addressing billing issues with . 01/05/2018; Counselor will continue working with family and dc program services planner with appropriate dc to skill nursing. 12/29/17: Pt required ETOs on 12/26 and over the weekend 12/27 or 12/28 to control pt's outbursts and behaviors. 12/24/17: OTR reports pt has been intermittently impulsive with his behaviors. Difficult to redirect. : counselor continues to seek placement at snf's. 11/26/2017 counselor continues to recall snf to update acceptance status for appropriate dc planning. 11/25/2017 Counselor will continue faxing packages to SNF skilling placement. Counselor will continue skilling skill nursing placement for an appropriate hospital discharge. Angie continuing to f/u with snf placement. Group Spec/RT/OT/AARON Present: Tamiko Godoy, GPS, GALEN Gardner, Obinna Johnson, OT, GALEN Menezes Group Spec/RT/OT/AARON Input: 01/14/2018 patient is not able to participate in activities. 01/12/2018; per PT patient continues to be unable to participate with activities. 01/06/2018: per PT patient lacks the ability to attend groups or activities due to unpredictable behavior. 12/31: Pt unable to tolerate or to attend groups. Pt is intermittently impulsive and inappropriate. 12/29: pt unable to tolerate groups, he does not attend. 12/24/17: Pt is unable to and is inappropriate to attend groups based on his cognition. 12/15/17: Pt has been unable to attend groups; confusion and physical limitations. 12/01/17: Pt has been unable to attend groups d/t physical limitations. 11/26/2017 per RT patient has been unable due to physical limitations participate with groups and activities. 11/25/2017; per RT patient has been unable to physically or mentally participate with groups/activities. Per RT patient has been unable to appropriately participate with groups or activities. 11/19/17: Pt has been unable to tolerate groups. Occupational Therapist Input: 11/18/17: Pt continues to require physical assistance to complete ADLS, pt is not currently receiving skilled occupational therapy services, assistance is provided by other staff (pt is 1:1 supervision; falls risk). Clinical Coordinator Input: Manda to follow-up with potential legal issues. Additional Input: 12/31: Dr. Hernandez reports pt required ETO, Seroquel continues to be titrated ( increased) per pt behaviors. Pt has 1:1 supervision (sitter), placement continues to be challenging. 12/29: Pt continues to be placement challenge, as his behaviors require ETOs for management. 12/24/17: Pt has had x 2 days with out additional medications. Pt continues to be a challenging placement based on his behaviorally inconsistent actions. - Discharge Plan Other (Patient will be dc to skill longterm when linked) Angie is actively pursuing placement at appropriate snf. - Documentation Scribe: Obinna Johnson MS, OTR Teaching Recipient: Patient
[2018-01-14] MEDS: levETIRAcetam 500 MG Tablet PO SCH ×2 (13:18→22:14)
[2018-01-14] MEDS ORDERED: Haloperidol Inj 5 MG/ML Ampul ONE (13:42)
[2018-01-14] MEDS: QUEtiapine 100 MG Tablet PO SCH (18:24)
--- NOTE | 2018-01-14 21:58 | P.PNPSY ---
Subjective Chief Complaint: - Remarks: Patient seen for follow-up, chart reviewed. Discussion with nursing staff reported that patient with no ETO's thus far was noted to be irritable for short period of time but redirectable. Patient was found lying hospital bed noted B, cooperative. Patient continues with baseline confusion, continues with very concrete responses stated that he is feeling "alright" denying any physical disturbances or complaints. Patient reports eating and drinking well states that he is feeling less weak and a little stronger. Review of Systems All other systems reviewed negative except as stated in HPI Mental Status Examination Appearance: Appropriate Consciousness: Alert Orientation: Person, Place (hospital) Motor Activity: Normal gait Speech: Unremarkable Language: Adequate Fund of Knowledge: Poor Attention and Concentration: Inadequate Memory: Impaired Mood: Other ("pretty good") Affect: Appropriate, Other (smiling) Thought Process & Associations: Other (poverty of thought) Thought Content: Other (Poverty of thought) Hallucination Type: None Delusion Type: None Suicidal Ideation: No Suicidal Plan: No Suicidal Intention: No Homicidal Ideation: No Homicidal Plan: No Homicidal Intention: No Insight: Fair Judgment: Impulsive Assessment and Plan - Assessment (1) Dementia with behavioral disturbance Code(s): F03.91 - Unspecified dementia with behavioral disturbance Status: Acute - Plan Plan: Patient this time with adequate behavioral control with no behavioral disturbances continues with baseline confusion. We will continue current treatment. Continue to monitor mood and behavior. Discharge planning a progress. Justification for Continued Inpatient Stay: At risk of further decompensation at lower level care. (1) Dementia with behavioral disturbance Qualifiers: Dementia type: Alzheimer's disease Alzheimer's disease onset: other onset Qualified Code(s): G30.8 - Other Alzheimer's disease; F02.81 - Dementia in other diseases classified elsewhere with behavioral disturbance
[2018-01-15 05:35] VITALS: BP 137/78; PULSE 72; RESP 13; TEMP 96.7; O2SAT 98
[2018-01-15] MEDS: Gabapentin 400 MG Capsule PO SCH (08:31)
[2018-01-15] MEDS: QUEtiapine 25 MG Tablet PO SCH ×2 (08:32→12:14)
[2018-01-15] MEDS: levETIRAcetam 500 MG Tablet PO SCH (11:22)
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
== END 2018-01-15 15:50 ==
LOC: NEPD 13:44 → NEDA 10-14 11:02 → H4EA 10-14 12:42
PROVIDERS: ADMIT Student in an Organized Health Care Education/Training Program; ATTEND Student in an Organized Health Care Education/Training Program